=== PATIENT | female | born 1995 | race Caucasian/White ===

== ENCOUNTER 2016-10-17 19:28 | Emergency (ER) | payer MEDICAID, OTHER ==
[2016-10-17] MEDS ORDERED: LORazepam 2 MG/ML VIAL IM ONE (20:30)
[2016-10-17] MEDS ORDERED: LORazepam 2 MG/ML VIAL ONE (20:33)
[2016-10-17] MEDS ORDERED: OLANZapine IM 10 MG VIAL IM ONE ×2 (20:50→21:00)
--- NOTE | 2016-10-17 21:02 | PD ---
HPI Chief Complaint: Psychiatric Symptoms Time Seen by Provider: 20:58 Travel History International Travel<30 days: No Contact w/Intl Traveler<30days: No Traveled to known affect area: No History of Present Illness HPI 21-year-old white female presents to emergency department from [facility] for medical clearance under a De La Torre act. The patient was belligerent at home, acting out breaking things and making suicidal statements. According to the nursing staff there is some question whether she had been smoking K2. The patient will at [facility] refused to give a urine specimen for test. The patient became increasingly agitated and was sent to the ER for medical clearance. The patient here is [id number] and acutely psychotic. Due to risk to the staff and patient she is placed in restraints and medicated with Zyprexa 10 mg IM. The patient is unable to render any meaningful history due to her acute psychoses. PFSH Past Medical History Medical History: Unable to Obtain Tetanus Vaccination: Unknown ?: Unknown Past Surgical History Surgical History: Unable to Obtain Social History Narrative Social History Unable to obtain Alcohol Use: No Tobacco Use: No Substance Use: No Allergies-Medications (Allergen,Severity, Reaction): Coded Allergies: No Known Allergies (Unverified , 10/17/16) Review of Systems ROS Limitations: Psychotic Physical Exam Narrative GENERAL: Well-nourished, well-developed patient. Acutely psychotic and agitated. SKIN: Warm and dry. HEAD: Normocephalic and atraumatic. EYES: No scleral icterus. No injection or drainage. ENT: No nasal drainage noted. Mucous membranes pink. Airway patent. NECK: Supple, trachea midline. Moves head freely without obvious discomfort. CARDIOVASCULAR: Regular rate and rhythm without murmurs, gallops, or rubs. RESPIRATORY: Breath sounds equal bilaterally. No accessory muscle use. GASTROINTESTINAL: Abdomen soft, non-tender, nondistended. EXTREMITIES: No cyanosis or edema. BACK: Nontender without obvious deformity. No CVA tenderness. NEURO: Patient is alert and oriented to person. She is screaming out and acutely psychotic. PSYCH: Acutely psychotic and agitated. Poor insight and judgment Data Data Orders Complete Blood Count With Diff (10/17/16 20:18) Comprehensive Metabolic Panel (10/17/16 20:18) Psych Screen (10/17/16 20:18) Drug Screen, Random Urine (10/17/16 20:18) Alcohol (Ethanol) (10/17/16 20:18) Salicylates (Aspirin) (10/17/16 20:18) Tylenol (Acetaminophen) (10/17/16 20:18) Lorazepam Inj (Ativan Inj) (10/17/16 20:30) Lorazepam Inj (Ativan Inj) (10/17/16 20:33) Olanzapine Inj (Zyprexa Inj) (10/17/16 21:00) Olanzapine Inj (Zyprexa Inj) (10/17/16 20:50) Restraints Violent (10/17/16 21:02) Beta Hcg (Quant/Titer) (10/17/16 20:18) Diet Regular Basic (10/18/16 Breakfast) Potassium Chloride (Kcl) (10/18/16 02:15) Labs Laboratory Tests Test 10/17/16 23:25 White Blood Count 10.6 TH/MM3 Red Blood Count 4.21 MIL/MM3 Hemoglobin 12.9 GM/DL Hematocrit 37.7 % Mean Corpuscular Volume 89.5 FL Mean Corpuscular Hemoglobin 30.7 PG Mean Corpuscular Hemoglobin 34.3 % Concent Red Cell Distribution Width 12.9 % Platelet Count 256 TH/MM3 Mean Platelet Volume 8.5 FL Neutrophils (%) (Auto) 70.2 % Lymphocytes (%) (Auto) 21.7 % Monocytes (%) (Auto) 7.8 % Eosinophils (%) (Auto) 0.1 % Basophils (%) (Auto) 0.2 % Neutrophils # (Auto) 7.4 TH/MM3 Lymphocytes # (Auto) 2.3 TH/MM3 Monocytes # (Auto) 0.8 TH/MM3 Eosinophils # (Auto) 0.0 TH/MM3 Basophils # (Auto) 0.0 TH/MM3 CBC Comment DIFF FINAL Differential Comment Salicylates Level LESS THAN 1.7 MG/DL Sodium Level 141 MEQ/L Potassium Level 3.2 MEQ/L Chloride Level 106 MEQ/L Carbon Dioxide Level 23.6 MEQ/L Anion Gap 11 MEQ/L Blood Urea Nitrogen 6 MG/DL Creatinine 0.61 MG/DL Estimat Glomerular Filtration 125 ML/MIN Rate Random Glucose 105 MG/DL Calcium Level 9.1 MG/DL Total Bilirubin 0.4 MG/DL Aspartate Amino Transf 11 U/L (AST/SGOT) Alanine Aminotransferase 17 U/L (ALT/SGPT) Alkaline Phosphatase 66 U/L Total Protein 6.7 GM/DL Albumin 4.0 GM/DL Human Chorionic Gonadotropin, LESS THAN 1 Quant MIU/ML Acetaminophen Level 3.3 MCG/ML Ethyl Alcohol Level LESS THAN 3 MG/DL [place] Medical Decision Making Medical Screen Exam Complete: Yes Emergency Medical Condition: Yes Medical Record Reviewed: Yes Interpretation(s) CBC & BMP Diagram 10/17/16 23:25 Differential Diagnosis MDM: High Differential diagnoses: Schizophrenia, schizoaffective disorder, bipolar, anxiety, depression, adjustment reaction, mood disorder NOS, ODD, depressive disorder NOS, dementia, dementia with agitation, psychosis NOS, substance induced mood disorder, intermittent explosive disorder, Asperger syndrome, infection,electrolyte abnormality, malingering. Narrative Course Due to the patient's acute psychosis and agitation she is medicated with Zyprexa 10 mg IM and placed in restraints to prevent self-harm and harm to the medical staff. Once she calms down she'll be taken out of restraints per protocol. The patient is given 20 mEq of potassium by mouth. The patient has refused to give a urine specimen. Her blood aren't suggestive as negative. The patient is medically cleared to go back to [facility] This is psychosis NOS Diagnosis Primary Impression: Unspecified psychosis Additional Impressions: Medical clearance for psychiatric admission Hypokalemia Patient Instructions: General Instructions Disposition: 65 DISC TO PSYCH CARE FACILITY Condition: Stable Rolando Villasenor Oct 17, 2016 21:02
[2016-10-17 23:39] LABS: AUTOMATED NEUTROPHIL # 7.4 TH/MM3 (1.8-7.7); BASOPHIL % 0.2 % (0.0-2.0); EOSINOPHIL % 0.1 % (0.0-4.0); HEMATOCRIT 37.7 % (35.0-46.0); HEMO FLAGS DIFF FINAL; LYMPH % 21.7 % (9.0-44.0); LYMPHOCYTE # 2.3 TH/MM3 (1.0-4.8); MEAN CELL VOLUME 89.5 FL (80.0-100.0); MEAN CORPUSCULAR HEMOGLOBIN 30.7 PG (27.0-34.0); MEAN CORPUSCULAR HGB CONC 34.3 % (32.0-36.0); MONO % 7.8 % (0.0-8.0); NEUT % 70.2 % (16.0-70.0); PLATELET COUNT 256 TH/MM3 (150-450); RED BLOOD COUNT 4.21 MIL/MM3 (4.00-5.30); RED CELL DISTRIBUTION WIDTH 12.9 % (11.6-17.2); WHITE BLOOD COUNT 10.6 TH/MM3 (4.0-11.0)
[2016-10-18 00:41] LABS: BLOOD UREA NITROGEN 6 MG/DL (7-18)
[2016-10-18 00:42] LABS: ALKALINE PHOSPHATASE 66 U/L (45-117); ALT (GPT) 17 U/L (9-42); ANION GAP 11 MEQ/L (5-15); AST (GOT) 11 U/L (16-38); BICARBONATE 23.6 MEQ/L (21.0-32.0); CHLORIDE 106 MEQ/L (98-107); GLOMERULAR FILTRATION RATE 125 ML/MIN (>89); POTASSIUM 3.2 MEQ/L (3.5-5.1); SODIUM (NA) 141 MEQ/L (136-145); TOTAL BILIRUBIN ADULT 0.4 MG/DL (0.2-1.0)
[2016-10-18 00:43] LABS: ACETAMINOPHEN 3.3 MCG/ML (10.0-30.0); BETA HCG QUANT LESS THAN 1 MIU/ML (0-5)
[2016-10-18 02:00] VITALS: BP 120/59; PULSE 86; RESP 19; O2SAT 98
[2016-10-18] MEDS ORDERED: POTASSIUM CHLORIDE 20 MEQ CONTROLLED RELEASE TAB PO ONE (02:15)
== END 2016-10-18 07:10 ==
LOC: NEDAMB 19:28 → NEPJ 10-18 07:10
DX: F29 Unspecified psychosis not due to a substance or known physiological condition (principal); E87.6 Hypokalemia
CPT/HCPCS: 80053; 80307; 84702; 85025; 96372; 99284; J2060

== ENCOUNTER 2016-10-28 13:14 | Inpatient (IN) | payer MEDICAID, OTHER ==
[~2016-10-28] VITALS: Ht 157.5 cm; Wt 56.0 kg
[2016-10-28 14:25] VITALS: BP 131/90; PULSE 127; RESP 18; TEMP 98.6; O2SAT 94
[2016-10-28] MEDS ORDERED: LORazepam 2 MG/ML VIAL IM PRN (15:00)
[2016-10-28] MEDS ORDERED: LORazepam 1 MG TAB PO PRN (15:00)
[2016-10-28] MEDS ORDERED: ACETAMINOPHEN 325 MG TAB PO PRN (15:00)
[2016-10-28 19:06] VITALS: BP 117/77; PULSE 125; RESP 18; TEMP 97.3; O2SAT 97
[2016-10-29 06:54] VITALS: BP 125/71; PULSE 72; RESP 19; TEMP 97; O2SAT 98
--- NOTE | 2016-10-29 16:56 | HHI.HP ---
Provisional Diagnosis Admission Date Oct 28, 2016 at 14:05 [place] I. Schizophrenia, chronic paranoid type. Certification of Person's Competence To Provide Express and Informed Consent I have personally examined Kori Singer , a [facility] on, Oct 29, 2016 16:47. Express and informed consent means consent voluntarily given in writing, by a competent person, after sufficient explanation and disclosure of the subject matter involved to enable the person to make a knowing and willful decision without any element of force, fraud, deceit, duress, or other form of constraint or coercion. This person is 18 years of age or older, is not now known to be incompetent to consent to treatment with a guardian advocate, and does not have a health care surrogate or proxy currently making medical treatment decisions. I have found this person to be one of the following: [] Competent to provide express and informed consent, as defined above, for voluntary admission to this facility and is competent to provide express and informed consent for treatment. He/she has the consistent capacity to make well reasoned, willful, and knowing decisions concerning his or her medical or mental health treatment. The person fully and consistently understands the purpose of the admission for examination/placement and is fully capable of personally exercising all rights assured [place] [X] Incompetent to provide express and informed consent to voluntary admission, and this is incompetent to provide express and informed consent to treatment. The person must be transferred to involuntary status and a petition for a guardian advocate filed with the Circuit Court. [] Refusing to provide express and informed consent to voluntary admission but is competent to provide express and informed consent for treatment. The person must be discharged or transferred to involuntary status. Form shall be completed within 24 hours of a person's arrival at the receiving facility and filed in the clinical record of each person: 1. Admitted on a voluntary basis 2. Permitted to provide express and informed consent to his/her own treatment 3. Allowed to transfer from involuntary to voluntary status 4. Prior to permitting a person to consent to his or her own treatment after having been previously found incompetent to consent to treatment. History of Present Illness Capacity: Lacks Capacity HPI This is a 21-year-old female who is grossly psychotic and a very poor historian. Apparently she was transferred here from [facility] under a De La Torre act. She can provide this physician with no information regarding her recent history and when approached, the patient is holding a Bible and stating that she is paranoid she will be strangled. 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 Patient also demonstrates looseness of associations, thought blocking, and is obviously responding to internal stimuli. She is not felt to be competent to make medical or psychiatry decisions regarding her own care. This physician asked aids social worker to call the patient's mother and aids social worker has left voice mails but mother has not returned call. The patient did refer to a man in her life as both her boyfriend and and that she needs to go back to him but this is unverified able. She is reclusive on the unit and is not speaking to other patients. Toxicology screen is reportedly negative. Review of Systems ROS Limitations: Clinical Condition Past Psych History Psychological trauma history Denied Violence risk - others (6 mos) Minimal Violence risk - self (6 mos) Moderate Substance Abuse History Drugs/Alcohol past 12 months Denied Past Family Social History Coded Allergies: No Known Allergies (Unverified , 10/17/16) Current Medications Medications (Trade) Dose Ordered Sig/Tien Route Start Time Stop Time Status Last Admin (Ativan) 1 mg Q4H PRN PO 10/28/16 15:00 10/29/16 03:10 (Ativan Inj) 1 mg Q4H PRN IM 10/28/16 15:00 10/28/16 17:24 (Milk Of Magnesia Liq) 30 ml Q6H PRN PO 10/28/16 15:00 (Tylenol) 650 mg Q6H PRN PO 10/28/16 15:00 Family History Unknown. 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 She is denying any problems with drugs or alcohol. We are uncertain if she is truly involved with any romantic relationships. Patient's Strengths (min. 2) Verbal and has access to healthcare. Physical Exam GENERAL: SKIN: Warm and dry. HEAD: Normocephalic. EYES: No scleral icterus. No injection or drainage. NECK: Supple, trachea midline. No JVD or lymphadenopathy. CARDIOVASCULAR: Regular rate and rhythm without murmurs, gallops, or rubs. RESPIRATORY: Breath sounds equal bilaterally. No accessory muscle use. GASTROINTESTINAL: Abdomen soft, non-tender, nondistended. MUSCULOSKELETAL: No cyanosis, or edema. BACK: Nontender without obvious deformity. No CVA tenderness. Vital Signs Vital Signs Date Time Temp Pulse Resp B/P Pulse Ox O2 Delivery O2 Flow Rate FiO2 10/29/16 06:54 97.0 72 19 125/71 98 Mental Status Examination Speech: Hesitant Orientation: Person, Place Memory: Unremarkable Thought Process: Organized, Loose Association Thought Content: Bizarre thinking, Paranoid Hallucination Type: Auditory Attention and Concentration: Easily Distracted Suicidal Ideation: Yes Previous Suicide Attempts: No Homicidal Ideation: No Previous Homicide Attempts: No Insight: Fair Judgment: Unrealistic Affect: Anxious Affect if Inappropriate: Blunt Mood: Appropriate, Anxious Motor Activity: Normal gait Assessment & Plan Problem List: (1) Schizophrenia, paranoid type ICD Code: F20.0 Assessment & Plan Estimated LOS: 7 days patient is obviously significantly impaired in her thought process and thought content. She appears very anxious and scared because of her paranoia. She is reclusive and does not engage with other patients or staff. This physician is also concerned about her auditory hallucinations telling her to harm herself. She will remain on close observation. This physician is uncertain of her history and needs to rule out any organic causes for her psychosis. Therefore she will receive a comprehensive metabolic workup, thyroid testing, EKG for psychotropic medicine tolerance, head scan if one has not been done, etc. At this point she is certainly unable to care for herself and she is felt to be at significant risk for self-harm. Placido Colin MD Oct 29, 2016 16:56
[2016-10-29] MEDS ORDERED: LORazepam 0.5 MG TAB PO PRN (17:00)
[2016-10-29] MEDS ORDERED: LORazepam 2 MG/ML VIAL IM PRN (17:00)
[2016-10-29] MEDS ORDERED: diphenhydrAMINE HCL 50 MG/ML VIAL IM STA (17:03)
[2016-10-29] MEDS ORDERED: ZIPRASIDONE MESYLATE 20 MG VIAL IM ONE ×2 (17:05→17:15)
[2016-10-29] MEDS ORDERED: diphenhydrAMINE HCL 50 MG/ML VIAL ONE (17:06)
[2016-10-29 18:00] VITALS: BP 140/72; PULSE 126; RESP 20; O2SAT 97
[2016-10-29] MEDS: LORazepam 1 MG TAB PO PRN ×3 (21:06→23:38)
[2016-10-29] MEDS: diphenhydrAMINE HCL 50 MG CAP PO PRN (21:06)
[2016-10-30] MEDS: LORazepam 1 MG TAB PO PRN (07:38)
[2016-10-30 08:03] VITALS: BP 142/83; PULSE 0; RESP 18; TEMP 99.1; O2SAT 96
[2016-10-30] MEDS: LORazepam 2 MG/ML VIAL IM PRN ×2 (08:14→19:54)
[2016-10-30 09:27] LABS: AUTOMATED NEUTROPHIL # 7.3 TH/MM3 (1.8-7.7); BASOPHIL % 0.3 % (0.0-2.0); EOSINOPHIL % 0.1 % (0.0-4.0); HEMATOCRIT 41.5 % (35.0-46.0); HEMO FLAGS DIFF FINAL; LYMPH % 12.6 % (9.0-44.0); LYMPHOCYTE # 1.1 TH/MM3 (1.0-4.8); MEAN CELL VOLUME 89.1 FL (80.0-100.0); MEAN CORPUSCULAR HEMOGLOBIN 31.8 PG (27.0-34.0); MEAN CORPUSCULAR HGB CONC 35.7 % (32.0-36.0); MONO % 6.7 % (0.0-8.0); NEUT % 80.3 % (16.0-70.0); PLATELET COUNT 346 TH/MM3 (150-450); RED BLOOD COUNT 4.65 MIL/MM3 (4.00-5.30); WHITE BLOOD COUNT 9.1 TH/MM3 (4.0-11.0)
[2016-10-30 10:10] LABS: ALKALINE PHOSPHATASE 75 U/L (45-117); ALT (GPT) 26 U/L (9-42); ANION GAP 14 MEQ/L (5-15); AST (GOT) 12 U/L (16-38); BICARBONATE 21.1 MEQ/L (21.0-32.0); BLOOD UREA NITROGEN 8 MG/DL (7-18); CHLORIDE 103 MEQ/L (98-107); GLOMERULAR FILTRATION RATE 94 ML/MIN (>89); POTASSIUM 3.5 MEQ/L (3.5-5.1); SODIUM (NA) 138 MEQ/L (136-145); TOTAL BILIRUBIN ADULT 0.8 MG/DL (0.2-1.0)
--- NOTE | 2016-10-30 11:17 | PD.CONS ---
Provisional Diagnosis Admission Date Oct 28, 2016 at 14:05 [place] I. 1. Brief psychotic disorder Rule out first break of primary psychotic disorder like schizophrenia Rule out mood disorder with psychotic features Rule out psychotic disorder related to a general medical condition [place] II. Deferred [place] V. GAF is 30 presently History of Present Illness Service Psychiatry Consult Requested By Dr. Colin Reason for Consult Second opinion for involuntary psychiatric hospitalization Primary Care Physician Unknown HPI From Dr. Colin's H&P: This is a 21-year-old female who is grossly psychotic and a very poor historian. Apparently she was transferred here from [facility] under a [place] Torre act. She can provide this physician with no information regarding her recent history and when approached, the patient is holding a Bible and stating that she is paranoid she will be strangled. 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 Patient also demonstrates looseness of associations, thought blocking, and is obviously responding to internal stimuli. She is not felt to be competent to make medical or psychiatry decisions regarding her own care. This physician asked criminal justice social worker to call the patient's mother and criminal justice social worker has left voice mails but mother has not returned call. The patient did refer to a man in her life as both her boyfriend and and that she needs to go back to him but this is unverified able. She is reclusive on the unit and is not speaking to other patients. Toxicology screen is reportedly negative. On my examination today: Patient seen and examined with counselor and nurse. Chart reviewed. Case discussed in treatment team with counselor and nurse. On my examination today, patient presents as very fearful and internally preoccupied. She is malodorous and disheveled. The patient reports that she is on her menses and so is "reborn." She reports that she has been sleeping quite poorly for the last several weeks and feels "real confused." She does articulate a belief that she is somehow being controlled by another person but says, "I don't wanna talk about it; they just turn things around." Affect is labile. She is non- committal regarding SI/HI. She denies AVH but appears internally preoccupied as I said. She admits that she has been under a lot of stress because of studying for [employer]. Psychiatric interview is somewhat limited because of patient's degree of psychiatric impairment at present. Past psychiatric history: Patient is likely an unreliable historian but denies any history of psychiatric illness. Family history: Patient reports that her mother has issues with being "explosive " but denies any other family psychiatric history. Chemical dependency history: Patient denies any abuse of drugs or alcohol. 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 She is single with no children. She works part-time at [employer]. Social history is limited because of patient's degree of psychiatric impairment. I have obtained collateral from patient's father, Ravi Singer, over the phone at [phone]: He notes that the patient has no prior psychiatric history and was in her usual state of health until about 2 weeks ago when she began crying at night for no reason. She notes that she broke up with her boyfriend about one week ago. She began "talking strange" and so family called the police and had her De La Torre acted and sent to [facility]. She was reportedly started on Zyprexa Zydis but this made the patient more confused reportedly. She was subsequently discharged from [facility] but has once again decompensated. Father notes that patient's mother carries a diagnosis of schizophrenia as well as patient's brother. Brother is reportedly on Zyprexa. Mother is not presently on antipsychotic therapy. Father does not patient is using suspect the patient is abusing substances. I discussed patient's differential diagnosis and treatment plan, and father is in agreement with the plan as presumptive healthcare surrogate. He thanks me for the call. Review of Systems ROS Limitations: Psychotic, Poor Historian Except as stated in HPI: all other systems reviewed are Neg Past Family Social History Coded Allergies: No Known Allergies (Unverified , 10/17/16) Past Medical History See electronic medical record Current Medications Medications (Trade) Dose Ordered Sig/Tien Route Start Time Stop Time Status Last Admin (Milk Of Magnleonid Liq) 30 ml Q6H PRN PO 10/28/16 15:00 (Ativan) 1 mg Q6H PRN PO 10/29/16 17:00 10/30/16 07:38 (Ativan Inj) 1 mg Q6H PRN IM 10/29/16 17:00 10/30/16 08:14 (Ativan) 0.5 mg Q12H PRN PO 10/29/16 17:00 (Ativan Inj) 0.5 mg Q12H PRN IM 10/29/16 17:00 (Benadryl) 50 mg Q6H PRN PO 10/29/16 17:00 (Benadryl Inj) 50 mg Q6H PRN IM 10/29/16 17:00 (Tylenol) 650 mg Q4H PRN PO 10/29/16 17:00 Family History See above Social History See above Patient's Strengths (min. 2) In a monitored setting. Supportive family. Physical Exam Physical examination completed by ED provider. On my examination today, the patient is well-nourished and well-developed and in no acute physical distress. No motoric abnormalities noted. Labs and vital signs reviewed: Vital Signs Vital Signs Date Time Temp Pulse Resp B/P Pulse Ox O2 Delivery O2 Flow Rate FiO2 10/30/16 08:03 99.1 0 18 142/83 96 Lab Results Item Value Date Time White Blood Count 9.1 TH/MM3 10/30/16 0710 Hemoglobin 14.8 GM/DL 10/30/16 0710 Platelet Count 346 TH/MM3 # 10/30/16 0710 Sodium Level 138 MEQ/L 10/30/16 0710 Potassium Level 3.5 MEQ/L 10/30/16 0710 Chloride Level 103 MEQ/L 10/30/16 0710 Carbon Dioxide Level 21.1 MEQ/L 10/30/16 0710 Blood Urea Nitrogen 8 MG/DL 10/30/16 0710 Creatinine 0.78 MG/DL 10/30/16 0710 Aspartate Amino Transf (AST/SGOT) 12 U/L L 10/30/16 0710 Alanine Aminotransferase (ALT/SGPT) 26 U/L 10/30/16 0710 Alkaline Phosphatase 75 U/L 10/30/16 0710 Thyroid Stimulating Hormone 3rd Gen 1.890 uIU/ML 10/30/16 0710 Beta HCG, Qualitative LESS THAN 1 MIU/ML 10/30/16 0710 Mental Status Examination Patient is casually dressed. She is fairly disheveled and malodorous. She is awake and alert and oriented to person and hospital. No evidence of delirium. No abnormal motor movements noted. Speech is somewhat halting and rambling. Language and fund of knowledge seemed average. Mood is somewhat anxious and affect is labile. Thought process somewhat disorganized. Associations somewhat loose. Delusions of control present as noted above. Patient denies audiovisual hallucinations but appears internally preoccupied. She is noncommittal regarding suicidal or homicidal ideation and is unreliable to contract for safety in her present state. Insight and judgment seem poor. Assessment & Plan Problem List: (1) Brief psychotic disorder ICD Code: F23 Assessment & Plan Initiate first break psychosis workup to include MRI of the brain as well as B12 , RPR, HIV, ammonia. Family history is certainly concerning for a primary psychotic illness. Zyprexa apparently worsened patient's condition or at least failed to improve it. I will initiate Abilify at a dose of 10 mg daily. This seems like a good option as it also comes and a corresponding long-acting injectable. Continue to monitor on the high acuity unit. Continue other medications and care as ordered. Given the circumstances of patient's presentation and her presentation on my examination today, I concur with Dr. Colin that the patient meets criteria for involuntary psychiatric hospitalization under the De La Torre act. I've completed the second opinion paperwork. I have also requested a healthcare surrogate. Discharge Planning Pending psychiatric stabilization Request HC Surrog/Guard Advoc?: Yes August Khan MD Oct 30, 2016 11:17
[2016-10-30 17:44] VITALS: BP 139/95; PULSE 113; RESP 18; TEMP 98.6; O2SAT 97
[2016-10-30] MEDS: diphenhydrAMINE HCL 50 MG/ML VIAL IM PRN (18:03)
[2016-10-31] VITALS (7 sets, daily range): BP systolic 119–163; BP diastolic 68–97; PULSE 74–181; RESP 17–20; TEMP 97.5–98.2; O2SAT 95–96
[2016-10-31] MEDS: diphenhydrAMINE HCL 50 MG/ML VIAL IM PRN ×2 (00:29→06:11)
[2016-10-31] MEDS: LORazepam 2 MG/ML VIAL IM PRN ×2 (05:14→18:21)
[2016-10-31] MEDS ORDERED: cloNIDine HCL 0.1 MG TAB PO ONE (06:00)
[2016-10-31] MEDS ORDERED: ARIPiprazole 5 MG TAB PO SCH (09:00)
[2016-10-31] MEDS: ARIPiprazole 10 MG TAB PO SCH (09:07)
--- NOTE | 2016-10-31 09:35 | HHI.PYPN ---
Subjective Remarks Patient seen and examined with counselor and nurse. Chart reviewed. Case discussed with nursing staff reports that the patient has been extremely anxious but otherwise no behavioral problem. Patient's pulse rate was significantly elevated this morning, peaking at 181 bpm. Patient was given Ativan which decreased the pulse rate. I did obtain a stat EKG which revealed sinus tachycardia, and I'll consult with the hospitalist for further evaluation of tachycardia. On my examination today, the patient presents as nervous and tremulous. When I ask routine follow-up questions she presents as fairly guarded and asks "are you investigating me?" She is reluctant to accept medication saying "I don't want to be dependent." She is requesting a Zoroastrian commercial construction superintendent. She denies any audiovisual hallucinations but appears internally preoccupied. Nursing staff reports that the patient was extremely reluctant to take any medications this morning. No evidence side effects from first dose of Abilify. Review of Systems ROS Limitations: Psychotic, Poor Historian Except as stated in HPI: all other systems reviewed are Neg Objective Alert: Yes [place]: Person, Place Mood: Anxious (marked) Affect: Restricted Memory Intact: Comment (Not formally assessed) Hallucinations: Auditory (appears internally preoccupied) Delusions: Yes Delusion Type: Paranoid Suicidal: Ideation (none) Homicidal: Ideation (none) Insight/Judgment Poor Remarks Somewhat tremulous but no other motoric abnormalities noted. Speech somewhat rambling. Thought process somewhat disorganized. Grooming and hygiene fair. Labs Test 10/31/16 07:38 Ammonia 14 MCMOL/L Vitamin B12 Level 776 PG/ML Labs reviewed. Awaiting MRI of the brain. EKG reviewed. Vitals/IOs Vital Signs Date Time Temp Pulse Resp B/P Pulse Ox O2 Delivery O2 Flow Rate FiO2 10/31/16 05:59 157 119/96 10/31/16 05:10 97.5 20 95 Assessment & Plan Problem List: (1) Brief psychotic disorder ICD Code: F23 Assessment & Plan Continue Abilify with plans to titrate to target psychosis. Mouth checks. Consult to the hospitalist for tachycardia as noted above, although I suspect this is at least in part related to anxiety. I will titrate patient's Ativan PRN, and we could consider a scheduled benzodiazepine. Consult to pastoral care. Continue to monitor on the high acuity unit. Continue other medications and care as ordered. I did discussed the case briefly with hospitalist Dr. Dubose prior to him seeing the patient. Justification for Cont. Inpt. Planned medication changes. Impairment in reality construction. High risk for decompensation in a restrictive environment. Discharge Planning Pending psychiatric stabilization Request HC Surrog/Guard Advoc?: Yes August Khan MD Oct 31, 2016 09:35
--- NOTE | 2016-10-31 16:50 | PD.CONS ---
HPI Service [facility] Consult Requested By Psychiatry team Reason for Consult Assist with medical management, tachycardia Primary Care Physician Unknown Diagnoses: History of Present Illness Patient is a 21 year old white female with no known primary medical history who came in to the hospital from [facility] under [place] act secondary to being belligerent at home, acting out raking things and making suicidal statements. As per record, questionable smoking K2 as per nursing staff at [facility]. The patient also refused to give urine specimen for test. 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 Patient is now admitted to inpatient psychiatry unit for further evaluation. Consulted for medical management, tachycardia. Patient seen and examined today. Very paranoid. Unable to verify any medical information nor prior history of hospitalization. Minimal verbalization. Does not follow any commands. Patient edition lying in bed monitoring some words sounds are not understandable. In the beginning, patient refused to be examined but with further coaching patient agreed. Review of Systems ROS Limitations: Psychotic Past Family Social History Allergies: Coded Allergies: No Known Allergies (Unverified , 10/17/16) Past Medical History Unable to obtain Past Surgical History Unable to obtain Active Ordered Medications Current Medications Medications (Trade) Dose Ordered Sig/Tien Route Start Time Stop Time Status Last Admin (Milk Of Wendi Liq) 30 ml Q6H PRN PO 10/28/16 15:00 (Benadryl) 50 mg Q6H PRN PO 10/29/16 17:00 (Benadryl Inj) 50 mg Q6H PRN IM 10/29/16 17:00 10/31/16 06:11 (Tylenol) 650 mg Q4H PRN PO 10/29/16 17:00 (Abilify) 10 mg DAILY PO 10/31/16 09:00 10/31/16 09:07 (Ativan) 2 mg Q6H PRN PO 10/31/16 17:00 (Ativan Inj) 2 mg Q6H PRN IM 10/31/16 17:00 Family History Unable to obtain Social History As per review of records, denies alcohol use, denies tobacco use Physical Exam Vital Signs Vital Signs Date Time Temp Pulse Resp B/P Pulse Ox O2 Delivery O2 Flow Rate FiO2 10/31/16 13:25 144 10/31/16 09:36 181 10/31/16 05:59 157 119/96 10/31/16 05:10 97.5 74 20 163/68 95 10/30/16 17:44 98.6 113 18 139/95 97 Physical Exam GENERAL: This is a well-nourished, well-developed patient, flat affect, appears scared and anxious. SKIN: No rashes, ecchymoses or lesions. Warm and dry. HEAD: Atraumatic. Normocephalic. No temporal or scalp tenderness. EYES: Pupils equal round and reactive. No scleral icterus. No injection or drainage. ENT: Nose without bleeding. Throat without erythema. Uvula midline. Airway patent. NECK: Trachea midline. No JVD or lymphadenopathy. Supple, nontender, no meningeal signs. CARDIOVASCULAR: Tachycardia without murmurs, gallops, or rubs. RESPIRATORY: Clear to auscultation. Breath sounds equal bilaterally. No wheezes , rales, or rhonchi. GASTROINTESTINAL: Abdomen soft, non-tender, nondistended. Bowel sounds active MUSCULOSKELETAL: Extremities without clubbing, cyanosis, or edema. NEUROLOGICAL: Awake and alert. Minimal verbalization. Moves all extremity but appears to be getting stiff every time she is being approached. Normal speech. Laboratory Laboratory Tests Test 10/31/16 07:38 Ammonia 14 Vitamin B12 Level 776 Rapid Plasma Reagin NON-REACTIVE HIV (1&2) Antibody NEGATIVE Result Diagram: 10/30/16 0710 10/30/16 0710 Assessment and Plan Problem List: (1) Schizophrenia, paranoid type ICD Code: F20.0 Status: Acute (2) Unspecified psychosis ICD Code: F29 Status: Acute (3) Tachycardia ICD Code: R00.0 Status: Acute Assessment and Plan Patient is a 21 year old white female with no known primary medical history who came in to the hospital from [facility] under [place] act secondary to being belligerent at home, acting out raking things and making suicidal statements. As per record, questionable smoking K2 as per nursing staff at [facility]. The patient also refused to give urine specimen for test. 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 Patient is now admitted to inpatient psychiatry unit for further evaluation. Consulted for medical management, tachycardia. Psychosis, schizophrenia - managed by psychiatry team - Patient appears to be increasingly paranoid and stiffening motion every time she is being approach. May possibly go to catatonia. Tachycardia - Most likely related to paranoia and anxiety. We'll continue to monitor for now. Encourage oral hydration. - EKG reviewed by me, tachycardia [address] changes. - Patient may need benefit from scheduled anxiolytics until she is more stable from a psychiatric standpoint.. - Unremarkable labs, reviewed. Previous toxicology negative. DVT prop ambulatory Thank you for this consultation. We will follow patient with you. Written by Mayr Bee, acting as scribe for Dr. Dubose on 10/31/16 at 16: 48. This note was transcribed by SUMANTH Figueroa. I, Dr. Mary Anne Dubose personally performed the history, physical exam, and medical decision making; and confirmed the accuracy of the information in the transcribed note. Authenticated by Dr. Mary Anne Dubose on 10/31/16 at 16:52. Code Status Full Code Discussed Condition With Patient, nursing, Mary Sandoval Oct 31, 2016 16:50 Mary Anne Dubose MD Oct 31, 2016 16:53
--- NOTE | 2016-10-31 19:04 | EKG ---
Date Performed: 10/31/2016 Time Performed: 10:37:43 PTAGE: 21 years EKG: SINUS TACHYCARDIA LEFT ATRIAL ENLARGEMENT ABNORMAL RHYTHM ECG NO PREVIOUS TRACING DOCTOR: Toshia Mistry Interpretating Date/Time 10/31/2016 19:03:10
[2016-10-31] MEDS: diphenhydrAMINE HCL 50 MG CAP PO PRN (21:06)
[2016-11-01] MEDS: LORazepam 2 MG TAB PO PRN (00:17)
[2016-11-01 06:09] VITALS: BP 122/68; PULSE 140; RESP 16; TEMP 97.1; O2SAT 99
[2016-11-01] MEDS: ARIPiprazole 10 MG TAB PO SCH ×2 (09:00→09:26)
[2016-11-01 09:56] VITALS: BP 133/86; PULSE 166
[2016-11-01] MEDS: LORazepam 2 MG/ML VIAL IM PRN (10:05)
--- NOTE | 2016-11-01 10:43 | HHI.PYPN ---
Subjective Remarks Patient seen and examined with counselor and nurse. Chart reviewed. Case discussed with nursing staff. Per nursing staff, patient's oral intake has been poor and she has been growing increasingly confused. On my examination today, behavior is considerably more disorganized today. She is oriented to person only. She is flapping her hands and engaging in purposeless movements. Her affect is quite labile and she appears generally fearful and internally preoccupied. She appears quite diaphoretic. Review of Systems ROS Limitations: Altered Mental Status, Psychotic, Poor Historian Other ROS limited because of patient's mental status Objective Alert: Yes [place]: Person Mood: Anxious Affect: Labile Memory Intact: Comment (Not formally assessed) Hallucinations: Auditory (remains internally preoccupied) Delusions: No Delusion Type: Other (difficult to assess because of altered mental status) Suicidal: Ideation (none voiced) Homicidal: Ideation (none voiced) Insight/Judgment Poor Remarks No hypertonia, some generalized tremors as before, no dystonias or dyskinesias. Appears diaphoretic. TP disorganized. Minimal speech, largely word salad. No posturing but + purposeless movements. Labs Labs reviewed. Vitals/IOs Vital Signs Date Time Temp Pulse Resp B/P Pulse Ox O2 Delivery O2 Flow Rate FiO2 11/01/16 09:56 166 133/86 11/01/16 06:09 97.1 16 99 Assessment & Plan Problem List: (1) Brief psychotic disorder ICD Code: F23 (2) Catatonia ICD Code: F06.1 Assessment & Plan Concern for catatonia, possibly malignant catatonia given tachycardia. Delirium due to other causes also in the differential. NMS seems less likely based on exam and lack of leukocytosis and relatively mild CK elevation, but should also be considered. D/w hospitalist. Check stat CBC, CMP, CK. [Reviewed: CK elevated. No leukocytosis. AST mildly elevated.] D/w Dr. Marie. Transfer to med psych. Start scheduled Ativan IM 2mg q6h for possible catatonia. Hold Abilify. NS bolus x 1 L now. Vitals q4h. Updated father Ravi Singer, over the phone at [phone] on change in status. He thanks me for the update. Patient's case was presented to the [place] act court, and the ict teacher placed the case and continuance for 4 weeks. Justification for Cont. Inpt. Complicating conditions. Impairment in reality construction. High risk for decompensation in a less restrictive environment. Discharge Planning Pending psychiatric stabilization. Request HC Surrog/Guard Advoc?: Yes August Khan MD Nov 01, 2016 10:43
[2016-11-01] MEDS ORDERED: SODIUM CHLOR 0.9% 1000 ML INJ 1,000 ML IV ONE (10:45)
[2016-11-01] MEDS: LORazepam 2 MG/ML VIAL IM SCH ×3 (10:45→23:02)
[2016-11-01 11:12] LABS: AUTOMATED NEUTROPHIL # 6.9 TH/MM3 (1.8-7.7); BASOPHIL % 0.5 % (0.0-2.0); EOSINOPHIL # 0.1 TH/MM3 (0-0.4); EOSINOPHIL % 0.9 % (0.0-4.0); HEMO FLAGS DIFF FINAL; LYMPHOCYTE # 1.7 TH/MM3 (1.0-4.8); MEAN CELL VOLUME 91.2 FL (80.0-100.0); MEAN CORPUSCULAR HEMOGLOBIN 30.4 PG (27.0-34.0); MEAN CORPUSCULAR HGB CONC 33.3 % (32.0-36.0); MONO % 6.4 % (0.0-8.0); NEUT % 74.2 % (16.0-70.0); PLATELET COUNT 277 TH/MM3 (150-450); RED BLOOD COUNT 4.72 MIL/MM3 (4.00-5.30); WHITE BLOOD COUNT 9.3 TH/MM3 (4.0-11.0)
[2016-11-01 11:48] LABS: ALKALINE PHOSPHATASE 69 U/L (45-117); ALT (GPT) 34 U/L (9-42); ANION GAP 8 MEQ/L (5-15); AST (GOT) 52 U/L (16-38); BICARBONATE 24.7 MEQ/L (21.0-32.0); BLOOD UREA NITROGEN 10 MG/DL (7-18); CHLORIDE 106 MEQ/L (98-107); CREATINE KINASE 1453 U/L (26-192); GLOMERULAR FILTRATION RATE 105 ML/MIN (>89); POTASSIUM 3.7 MEQ/L (3.5-5.1); SODIUM (NA) 139 MEQ/L (136-145); TOTAL BILIRUBIN ADULT 0.7 MG/DL (0.2-1.0)
[2016-11-01] MEDS: DEXT 5%-NACL 0.9% 1000 ML INJ 1,000 ML IV SCH ×2 (13:00→23:02)
[2016-11-01 13:25] VITALS: BP 122/80; PULSE 124; RESP 24; TEMP 97.6; O2SAT 97
--- NOTE | 2016-11-01 13:32 | HHI.PR ---
Subjective Remarks Follow up paranoid schizophrenia and tachycardia. Patient seen in room, minimal verbalization, appears scared and withdrawn. Per nursing team, patient has ate and drank very little since her admission. Has also been tachycardic. Patient did utter some words with possible indication of upset stomach and occasional nausea. She did state that "no one understands". [facility] Objective Vitals Vital Signs Date Time Temp Pulse Resp B/P Pulse Ox O2 Delivery O2 Flow Rate FiO2 11/01/16 09:56 166 133/86 11/01/16 06:09 97.1 140 16 122/68 99 10/31/16 22:00 129 141/97 10/31/16 18:46 98.2 135 17 143/71 96 10/31/16 18:19 151 10/31/16 13:25 144 Result Diagram: 11/01/16 1101 11/01/16 1101 Objective Remarks GENERAL: Well-nourished, well-developed patient, flat affect, appears scared and anxious. SKIN: No rashes, ecchymoses or lesions. Warm and dry. HEAD: Atraumatic. Normocephalic. No temporal or scalp tenderness. Pupils equal round and reactive. Nose without bleeding. Airway patent. No JVD or lymphadenopathy. Supple, nontender, no meningeal signs. CARDIOVASCULAR: Tachycardia without murmurs, gallops, or rubs. RESPIRATORY: CTA. Breath sounds equal bilaterally. No wheezes, rales, or rhonchi. GASTROINTESTINAL: Abdomen soft, non-tender, nondistended. Bowel sounds active MUSCULOSKELETAL: Extremities without clubbing, cyanosis, or edema. NEUROLOGICAL: Awake and alert. Minimal verbalization. Moves all extremity, but very stiff and anxious. Normal speech. A/P Assessment and Plan Patient is a 21 year old white female with no known primary medical history who came in to the hospital from [facility] under [place] act secondary to being belligerent at home, acting out raking things and making suicidal statements. As per record, questionable smoking K2 as per nursing staff at [facility]. The patient also refused to give urine specimen for test. 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 Patient is now admitted to inpatient psychiatry unit for further evaluation. Consulted for medical management, tachycardia. Psychosis, paranoid schizophrenia - managed by psychiatry team - Patient appears to be increasingly paranoid and stiffening motion every time she is being approach. Catatonic behavior assessed. Will move her to med- psych for further monitoring. Tachycardia - Most likely related to paranoia and anxiety, although has not resolved. Start IVF, D5W NS @ 100ml/hr. Encourage oral hydration and PO intake. Spoke to patient about possibility of NGT if she does not start eating. - EKG done 10/31, tachycardia [address] changes. - Ativan 2 mg scheduled IM and available PRN. - Unremarkable labs, reviewed. Previous toxicology negative. Possible neuroleptic malignant syndrome, with positive muscle rigidity, elevated total creatine kinase and CK, tachycardia, tremors, and catatonia. - Total creatinine kinase, 1453. Redraw CKMB and CPK in am. - Will stop Abilify. - Monitor closely. - Propranolol PRN if HR >120. Nausea - Zofran PRN - Monitor closely. DVT prophylaxis: encourage ambulation. Written by Giuliana Montelongo, acting as scribe for Dr. Salas on 11/01/16 at 13:04. Giuliana Montelongo Nov 01, 2016 13:32 - Zofran PRN - Monitor closely. DVT prophylaxis: encourage ambulation. Written by Giuliana Montelongo, acting as scribe for Dr. Salas on 11/01/16 at 13:04. Giuliana Montelongo Nov 01, 2016 13:32
[2016-11-01] MEDS ORDERED: PROPRANOLOL HCL 10 MG TAB PO PRN (14:00)
[2016-11-01 14:24] VITALS: PULSE 113; RESP 16; O2SAT 98
[2016-11-01] MEDS ORDERED: LORazepam 2 MG/ML VIAL IV ONE (15:30)
[2016-11-01] MEDS: diphenhydrAMINE HCL 50 MG/ML VIAL IM PRN (15:56)
[2016-11-01 21:08] VITALS: BP 129/82; PULSE 120; RESP 24; TEMP 98.5; O2SAT 97
[2016-11-02] MEDS: LORazepam 2 MG/ML VIAL IM SCH ×4 (05:20→21:46)
[2016-11-02 06:11] VITALS: BP 111/70; PULSE 106; RESP 20; TEMP 97.5; O2SAT 98
[2016-11-02] MEDS: DEXT 5%-NACL 0.9% 1000 ML INJ 1,000 ML IV SCH ×2 (09:00→21:20)
[2016-11-02 09:17] LABS: CKMB 9.4 NG/ML (0.5-3.6)
--- NOTE | 2016-11-02 11:28 | HHI.PR ---
Subjective Remarks Follow up paranoid schizophrenia and tachycardia. Patient seen and examined today by myself and Dr. Salas. Patient lying in bed, flat affect, minimal vocalization. Anxiety somewhat improved from yesterday. Per RN patient has been refusing food intake and propranolol. Heart rate more controlled but still tachycardic. Objective Vitals Vital Signs Date Time Temp Pulse Resp B/P Pulse Ox O2 Delivery O2 Flow Rate FiO2 11/02/16 06:11 97.5 106 20 111/70 98 11/01/16 21:08 98.5 120 24 129/82 97 11/01/16 14:24 113 16 98 11/01/16 13:25 97.6 124 24 122/80 97 I/O 11/01/16 11/01/16 11/01/16 11/02/16 11/02/16 11/02/16 07:00 15:00 23:00 07:00 15:00 23:00 Intake Total 340 ml Balance 340 ml Intake Oral 340 ml # Voids 2 Result Diagram: 11/01/16 1101 11/01/16 1101 Objective Remarks GENERAL: Well-nourished, well-developed patient, flat affect. SKIN: No rashes, ecchymoses or lesions. Warm and dry. HEAD: Atraumatic. Normocephalic. No temporal or scalp tenderness. Pupils equal round and reactive. Nose without bleeding. Airway patent. No JVD or lymphadenopathy. Supple, nontender, no meningeal signs. CARDIOVASCULAR: Tachycardia without murmurs, gallops, or rubs. RESPIRATORY: CTA. Breath sounds equal bilaterally. No wheezes, rales, or rhonchi. GASTROINTESTINAL: Abdomen soft, non-tender, nondistended. Bowel sounds active MUSCULOSKELETAL: Extremities without clubbing, cyanosis, or edema. NEUROLOGICAL: Awake and alert. Minimal verbalization. Moves all extremity. Normal speech. A/P Problem List: (1) Schizophrenia, paranoid type ICD Code: F20.0 Status: Acute (2) Unspecified psychosis ICD Code: F29 Status: Acute (3) Tachycardia ICD Code: R00.0 Status: Acute Assessment and Plan Patient is a 21 year old white female with no known primary medical history who came in to the hospital from [facility] under [place] act secondary to being belligerent at home, acting out raking things and making suicidal statements. As per record, questionable smoking K2 as per nursing staff at [facility]. The patient also refused to give urine specimen for test. 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 Patient is now admitted to inpatient psychiatry unit for further evaluation. Consulted for medical management, tachycardia. Psychosis, paranoid schizophrenia - managed by psychiatry team - Patient has flat affect, stiffening improved somewhat today. Catatonic behavior still assessed. Minimal vocalization. Tachycardia - Most likely related to paranoia and anxiety, has not resolved and patient refusing Propranolol. Continue IVF, D5W NS @ 100ml/hr. Encourage increased oral hydration and PO intake, still will minimal intake. Spoke to patient about possibility of NGT if she does not start eating. - EKG done 10/31 and reviewed, tachycardia [address] changes. - Ativan 2 mg scheduled IM and available PRN. - Unremarkable labs, reviewed. Previous toxicology negative. Possible neuroleptic malignant syndrome, with positive muscle rigidity, elevated total creatine kinase and CK, tachycardia, tremors, and catatonia. - Total creatinine kinase, 1453-->1323. Redraw CKMB and CPK in am. - Abilify stopped. - Monitor closely. - Propranolol PRN if HR >120. Nausea - Zofran PRN - Monitor closely. DVT prophylaxis: encourage ambulation. Written by Giuliana Montelongo, acting as scribe for Dr. Salas on 11/02/16 at 11:27. Improved NMS symptoms. Follow for two days. Could try a low dose trial of treatment again if improvement continues. This note was transcribed by scribe [Giuliana Montelongo]. I, Dr. Bi Salas personally performed the history, physical exam, and medical decision making; and confirmed the accuracy of the information in the transcribed note. Authenticated by Dr. Bi Salas on 11/02/16 at 15:08. Giuliana Montelongo Nov 02, 2016 11:28 Bi Salas MD Nov 02, 2016 15:08
[2016-11-02] MEDS: LORazepam 2 MG TAB PO PRN (11:48)
--- NOTE | 2016-11-02 15:38 | HHI.PYPN ---
Subjective Remarks Patient was seen today for psychiatric evaluation, patient is poorly cooperative , distant, guarded, visibly internally preoccupied, with a marked negativism and poverty of speech, however she is able to say that she feels better, she is oriented 3. As per staff patient has been paranoid, refusing to eat and take medications. During my evaluation no stiffness, no rigidity, tremors, are present. Review of Systems Other No somatic complaints Objective Alert: Yes [place]: Person Mood: Anxious Affect: Labile Memory Intact: Comment (Not formally assessed) Hallucinations: Auditory (remains internally preoccupied) Delusions: No Delusion Type: Other (difficult to assess because of altered mental status) Suicidal: Ideation (none voiced) Homicidal: Ideation (none voiced) Insight/Judgment Poor Labs Test 11/02/16 07:31 Total Creatine Kinase 1323 U/L Creatine Kinase MB 9.4 NG/ML Creatine Kinase MB % 0.7 % Vitals/IOs Vital Signs Date Time Temp Pulse Resp B/P Pulse Ox O2 Delivery O2 Flow Rate FiO2 11/02/16 06:11 97.5 106 20 111/70 98 Intake and Output 11/01/16 11/01/16 11/02/16 08:00 16:00 00:00 Intake Total 240 ml Balance 240 ml Assessment & Plan Problem List: (1) Brief psychotic disorder ICD Code: F23 (2) Catatonia Assessment & Plan: Patient continues to present negativism, poverty of speech, internal preoccupation, but no stiffness, tremors or rigidity observed. Patient is minimally verbal today able to show that she is oriented 3. We'll continue to hold antipsychotics until NMS is completely rule out. But, might consider starting antipsychotics tomorrow morning, a low dose. ICD Code: F06.1 Assessment & Plan Estimated LOS: days Justification for Cont. Inpt. Patient is acutely psychotic, and is to continue psychiatric hospitalization for stabilization.. Request HC Surrog/Guard Advoc?: Yes Damian Marie MD Nov 02, 2016 15:38
[2016-11-02 19:54] VITALS: BP 135/73; PULSE 137; RESP 18; TEMP 97.9; O2SAT 98
[2016-11-03 00:15] VITALS: BP 119/76; PULSE 105; RESP 18; TEMP 97.5; O2SAT 100
[2016-11-03] MEDS: LORazepam 2 MG/ML VIAL IM SCH ×3 (04:45→16:45)
[2016-11-03 06:19] VITALS: BP 127/60; PULSE 130; RESP 16; TEMP 97.7; O2SAT 99
[2016-11-03] MEDS: DEXT 5%-NACL 0.9% 1000 ML INJ 1,000 ML IV SCH ×3 (07:37→16:59)
[2016-11-03 11:00] VITALS: BP 132/93; PULSE 141
--- NOTE | 2016-11-03 11:53 | HHI.PR ---
Subjective Remarks Follow up paranoid schizophrenia and tachycardia. Patient seen and examined today. Patient is awake, still distant and guarded but at a few points in the assessment today patient was smiling, mouthing and verbalizing some words, and dancing to the music playing in her room. This behavior seems to be transient with patient slowly becoming more withdrawn and distant again. Stiffness has significantly improved today. Objective Vitals Vital Signs Date Time Temp Pulse Resp B/P Pulse Ox O2 Delivery O2 Flow Rate FiO2 11/03/16 06:19 97.7 130 16 127/60 99 11/03/16 00:15 97.5 105 18 119/76 100 11/02/16 19:54 97.9 137 18 135/73 98 I/O 11/02/16 11/02/16 11/02/16 11/03/16 11/03/16 11/03/16 07:00 15:00 23:00 07:00 15:00 23:00 Intake Total 340 ml 818 ml Balance 340 ml 818 ml Intake Oral 340 ml 250 ml IV Total 568 ml # Voids 2 3 # Bowel Movements 1 Result Diagram: 11/01/16 1101 11/01/16 1101 Objective Remarks GENERAL: Well-nourished, well-developed patient, affect flat in initial evaluation with some improvement throughout. SKIN: No rashes, ecchymoses or lesions. Warm and dry. HEAD: Atraumatic. Normocephalic. No temporal or scalp tenderness. Pupils equal round and reactive. Nose without bleeding. Airway patent. No JVD or lymphadenopathy. Supple, nontender, no meningeal signs. CARDIOVASCULAR: Tachycardia without murmurs, gallops, or rubs. RESPIRATORY: CTA. Breath sounds equal bilaterally. No wheezes, rales, or rhonchi. GASTROINTESTINAL: Abdomen soft, non-tender, nondistended. Bowel sounds active MUSCULOSKELETAL: Extremities without clubbing, cyanosis, or edema. NEUROLOGICAL: Awake and alert. Stiffness improved. No tremors noted. Minimal verbalization. Moves all extremity. Normal speech. A/P Problem List: (1) Schizophrenia, paranoid type ICD Code: F20.0 Status: Acute (2) Unspecified psychosis ICD Code: F29 Status: Acute (3) Tachycardia ICD Code: R00.0 Status: Acute Assessment and Plan Patient is a 21 year old white female with no known primary medical history who came in to the hospital from [facility] under [place] act secondary to being belligerent at home, acting out raking things and making suicidal statements. As per record, questionable smoking K2 as per nursing staff at [facility]. The patient also refused to give urine specimen for test. 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 Patient is now admitted to inpatient psychiatry unit for further evaluation. Consulted for medical management, tachycardia. Psychosis, paranoid schizophrenia - managed by psychiatry team - Patient's affect somewhat improved today, stiffness minimal. Minimal vocalization with some mouthing of words. Tachycardia - Most likely related to paranoia and anxiety, has not resolved and patient refusing Propranolol PRN. Will begin Propranolol scheduled. Encouraged patient of importance of taking her medications. Continue IVF, D5W NS @ 100ml/hr. Encourage increased oral hydration and PO intake. - EKG done 10/31 and reviewed by me, tachycardia [address] changes. - Ativan 2 mg scheduled IM and available PRN. - Unremarkable labs, reviewed. Previous toxicology negative. Possible neuroleptic malignant syndrome, with positive muscle rigidity, elevated total creatine kinase and CK, tachycardia, tremors, and catatonia. - Total creatinine kinase, 1453-->1323 --> 722. Improving. - Abilify stopped. - Monitor closely. - Propranolol 10 mg Q8hr scheduled. Nausea - Zofran PRN - Patient states improved today. DVT prophylaxis: encourage ambulation. Written by Giuliana Montelongo, acting as scribe for Dr. Salas on 11/03/16 at 11:52. Giuliana Montelongo Nov 03, 2016 11:53
--- NOTE | 2016-11-03 12:39 | HHI.PYPN ---
Subjective Remarks Patient seen for psychiatric evaluation today, patient seems to be more alert, with a brighter affect, following commands, smiling and even dancing with the music of TV, however is still minimally verbal, with marked negativism, poverty of speech, internal preoccupation, thought blocking. Review of Systems Other No somatic complaints Objective Alert: Yes [place]: Person Mood: Anxious, Oppositional Affect: Flat Memory Intact: Comment (Not formally assessed) Hallucinations: Auditory (remains internally preoccupied) Delusions: No Delusion Type: Other (difficult to assess because of altered mental status) Suicidal: Ideation (none voiced) Homicidal: Ideation (none voiced) Insight/Judgment poor Labs Test 11/03/16 04:24 Total Creatine Kinase 722 U/L Creatine Kinase MB 4.0 NG/ML Creatine Kinase MB % 0.6 % Vitals/IOs Vital Signs Date Time Temp Pulse Resp B/P Pulse Ox O2 Delivery O2 Flow Rate FiO2 11/03/16 06:19 97.7 130 16 127/60 99 Intake and Output 11/02/16 11/02/16 11/03/16 08:00 16:00 00:00 Intake Total 100 ml Balance 100 ml Assessment & Plan Problem List: (1) Brief psychotic disorder Assessment & Plan: We'll continue conservative treatment with Ativan, will hold antipsychotics until NMS is completely rule out. Patient is still tachycardic, CPKs trending down, but confusion, marked negativism, internal preoccupation, blocking thought, and his stiffness still noted. Reorder CBC, CMP, CPK. ICD Code: F23 (2) Catatonia ICD Code: F06.1 Assessment & Plan Estimated LOS: days Justification for Cont. Inpt. Patient is acutely psychotic, catatonic, needs to continue psychiatric hospitalization for stabilization Request HC Surrog/Guard Advoc?: Yes Damian Maire MD Nov 03, 2016 12:38
[2016-11-03] MEDS: PROPRANOLOL HCL 10 MG TAB PO SCH ×2 (14:00→21:25)
[2016-11-03 14:58] LABS: AUTOMATED NEUTROPHIL # 4.7 TH/MM3 (1.8-7.7); BASOPHIL % 0.4 % (0.0-2.0); EOSINOPHIL # 0.1 TH/MM3 (0-0.4); EOSINOPHIL % 1.1 % (0.0-4.0); HEMATOCRIT 39.7 % (35.0-46.0); HEMO FLAGS DIFF FINAL; LYMPH % 18.4 % (9.0-44.0); LYMPHOCYTE # 1.2 TH/MM3 (1.0-4.8); MEAN CELL VOLUME 90.3 FL (80.0-100.0); MEAN CORPUSCULAR HEMOGLOBIN 31.3 PG (27.0-34.0); MEAN CORPUSCULAR HGB CONC 34.6 % (32.0-36.0); MONO % 7.4 % (0.0-8.0); NEUT % 72.7 % (16.0-70.0); PLATELET COUNT 293 TH/MM3 (150-450); RED BLOOD COUNT 4.39 MIL/MM3 (4.00-5.30); RED CELL DISTRIBUTION WIDTH 12.9 % (11.6-17.2); WHITE BLOOD COUNT 6.4 TH/MM3 (4.0-11.0)
[2016-11-03 15:22] LABS: ALT (GPT) 31 U/L (9-42); ANION GAP 11 MEQ/L (5-15); AST (GOT) 40 U/L (16-38); BICARBONATE 24.3 MEQ/L (21.0-32.0); BLOOD UREA NITROGEN LESS THAN 1 MG/DL (7-18); CHLORIDE 108 MEQ/L (98-107); GLOMERULAR FILTRATION RATE 161 ML/MIN (>89); POTASSIUM 3.4 MEQ/L (3.5-5.1); SODIUM (NA) 143 MEQ/L (136-145)
[2016-11-03 15:24] LABS: ALKALINE PHOSPHATASE 61 U/L (45-117); CREATINE KINASE 672 U/L (26-192); TOTAL BILIRUBIN ADULT 0.4 MG/DL (0.2-1.0)
[2016-11-03 15:57] LABS: CKMB 2.9 NG/ML (0.5-3.6)
[2016-11-03 16:00] VITALS: BP 135/89; PULSE 135; RESP 18; TEMP 97.9; O2SAT 98
[2016-11-03] MEDS ORDERED: OLANZapine IM 10 MG VIAL IM ONE (21:00)
[2016-11-04] MEDS: DEXT 5%-NACL 0.9% 1000 ML INJ 1,000 ML IV SCH ×3 (01:00→21:38)
[2016-11-04] MEDS ORDERED: LORazepam 2 MG/ML VIAL IV ONE (03:45)
[2016-11-04] MEDS: LORazepam 2 MG/ML VIAL IM SCH ×5 (04:45→21:38)
[2016-11-04] MEDS: PROPRANOLOL HCL 10 MG TAB PO SCH ×3 (05:29→21:38)
[2016-11-04 06:50] VITALS: BP 121/78; PULSE 113; RESP 16; TEMP 98.1; O2SAT 98
--- NOTE | 2016-11-04 10:22 | HHI.PR ---
Subjective Remarks Follow up paranoid schizophrenia and tachycardia. Patient seen and examined today, sitting up in chair in her room with sitter at bedside. Patient awake, more of a flat affect today. Patient is vocalizing words intermittently. States something regarding aliens and living a double life. Spoke to RN at length about patient condition, does state that patient had some bouts of stiffness and catatonia overnight after receiving Zyprexa. Also states that she has been refusing her propranolol with continued elevated heart rate. RN does state that patient has increased PO intake. Objective Vitals Vital Signs Date Time Temp Pulse Resp B/P Pulse Ox O2 Delivery O2 Flow Rate FiO2 11/04/16 06:50 98.1 113 16 121/78 98 11/03/16 16:00 97.9 135 18 135/89 98 11/03/16 11:00 141 132/93 I/O 11/03/16 11/03/16 11/03/16 11/04/16 11/04/16 11/04/16 07:00 15:00 23:00 07:00 15:00 23:00 Intake Total 818 ml 360 ml 364 ml Balance 818 ml 360 ml 364 ml Intake Oral 250 ml 360 ml IV Total 568 ml 364 ml # Voids 3 2 # Bowel Movements 1 0 Result Diagram: 11/03/16 1409 11/03/16 1409 Objective Remarks GENERAL: Well-nourished, well-developed patient, affect flat in initial evaluation with some improvement throughout. SKIN: No rashes, ecchymoses or lesions. Warm and dry. HEAD: Atraumatic. Normocephalic. No temporal or scalp tenderness. Pupils equal round and reactive. Nose without bleeding. Airway patent. No JVD or lymphadenopathy. Supple, nontender, no meningeal signs. CARDIOVASCULAR: Tachycardia without murmurs, gallops, or rubs. RESPIRATORY: CTA. Breath sounds equal bilaterally. No wheezes, rales, or rhonchi. GASTROINTESTINAL: Abdomen soft, non-tender, nondistended. Bowel sounds active MUSCULOSKELETAL: Extremities without clubbing, cyanosis, or edema. NEUROLOGICAL: Awake and alert. Stiffness improved. No tremors noted. Verbalizing occasionally. Moves all extremity. Normal speech. A/P Problem List: (1) Schizophrenia, paranoid type ICD Code: F20.0 Status: Acute (2) Unspecified psychosis ICD Code: F29 Status: Acute (3) Tachycardia ICD Code: R00.0 Status: Acute Assessment and Plan Patient is a 21-year-old white female with no known primary medical history who came in to the hospital from [facility] under [place] act secondary to being belligerent at home, acting out raking things and making suicidal statements. As per record, questionable smoking K2 as per nursing staff at [facility]. The patient also refused to give urine specimen for test. 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 Patient is now admitted to inpatient psychiatry unit for further evaluation. Consulted for medical management, tachycardia. Psychosis, paranoid schizophrenia - managed by psychiatry team - Patient's affect flat today. Diminished stiffness. Minimal vocalization with some mouthing of words. No tremors noted. Tachycardia - Most likely related to paranoia and anxiety, has not resolved and patient refusing Propranolol PRN. Will begin Propranolol scheduled. Encouraged patient of importance of taking her medications. Continue IVF, D5W NS @ 100ml/hr. Encourage increased oral hydration and PO intake. - EKG done 10/31 and reviewed by me, tachycardia [address] changes. - Ativan 2 mg scheduled IM and available PRN. - Unremarkable labs, reviewed. Previous toxicology negative. Possible neuroleptic malignant syndrome, with positive muscle rigidity, elevated total creatine kinase and CK, tachycardia, tremors, and catatonia. - Total creatinine kinase, 1453-->1323 --> 722 --> 672. Awaiting this am labs. - Muscle rigidity and tremors much improved, more sporadic. Continue IVF at this time, and await CPK levels today depending on level, will dc IVF since patient has been increasing PO intake. - Abilify stopped. - Monitor closely. - Propranolol 10 mg Q8hr scheduled. Encouraged patient to take this, has been refusing lately. Nausea - Zofran PRN - Patient states improved today. DVT prophylaxis: encourage ambulation. Giuliana Montelongo Nov 04, 2016 10:21
[2016-11-04 11:00] VITALS: BP 140/82; PULSE 112; TEMP 96.8
--- NOTE | 2016-11-04 14:05 | HHI.PYPN ---
Subjective Remarks Patient was seen for psychiatric reevaluation today patient was acutely catatonic, stuporous, very rigid, mute, waxy flexibility, marked echopraxia. As per nurse, last night patient was extremely restless, with several no- purpose and bizarre movements. Review of Systems Other No somatic complaints Objective Alert: Yes [place]: Person Mood: Oppositional Affect: Flat Memory Intact: Comment (Not formally assessed) Hallucinations: Auditory (remains internally preoccupied) Delusions: No Delusion Type: Other (difficult to assess because of altered mental status) Suicidal: Ideation (none voiced) Homicidal: Ideation (none voiced) Insight/Judgment Poor Labs Test 11/03/16 14:09 White Blood Count 6.4 TH/MM3 Red Blood Count 4.39 MIL/MM3 Hemoglobin 13.7 GM/DL Hematocrit 39.7 % Mean Corpuscular Volume 90.3 FL Mean Corpuscular Hemoglobin 31.3 PG Mean Corpuscular Hemoglobin 34.6 % Concent Red Cell Distribution Width 12.9 % Platelet Count 293 TH/MM3 Mean Platelet Volume 8.2 FL Neutrophils (%) (Auto) 72.7 % Lymphocytes (%) (Auto) 18.4 % Monocytes (%) (Auto) 7.4 % Eosinophils (%) (Auto) 1.1 % Basophils (%) (Auto) 0.4 % Neutrophils # (Auto) 4.7 TH/MM3 Lymphocytes # (Auto) 1.2 TH/MM3 Monocytes # (Auto) 0.5 TH/MM3 Eosinophils # (Auto) 0.1 TH/MM3 Basophils # (Auto) 0.0 TH/MM3 CBC Comment DIFF FINAL Differential Comment Sodium Level 143 MEQ/L Potassium Level 3.4 MEQ/L Chloride Level 108 MEQ/L Carbon Dioxide Level 24.3 MEQ/L Anion Gap 11 MEQ/L Blood Urea Nitrogen LESS THAN 1 MG/DL Creatinine 0.49 MG/DL Estimat Glomerular Filtration 161 ML/MIN Rate Random Glucose 101 MG/DL Calcium Level 9.5 MG/DL Total Bilirubin 0.4 MG/DL Aspartate Amino Transf 40 U/L (AST/SGOT) Alanine Aminotransferase 31 U/L (ALT/SGPT) Alkaline Phosphatase 61 U/L Total Creatine Kinase 672 U/L Creatine Kinase MB 2.9 NG/ML Creatine Kinase MB % 0.4 % Total Protein 6.9 GM/DL Albumin 4.0 GM/DL Vitals/IOs Vital Signs Date Time Temp Pulse Resp B/P Pulse Ox O2 Delivery O2 Flow Rate FiO2 11/04/16 06:50 98.1 113 16 121/78 98 Intake and Output 11/03/16 11/03/16 11/04/16 08:00 16:00 00:00 Intake Total 818 ml 240 ml 120 ml Balance 818 ml 240 ml 120 ml Assessment & Plan Problem List: (1) Brief psychotic disorder ICD Code: F23 (2) Catatonia Assessment & Plan: Patient is acutely catatonic at this moment, we will give an additional dose of Ativan 2 mg IV. CBC, CMP and CPK reviewed, vital signs almost review, there basically under normal limits, CPK already trending down. We'll start Abilify 5 mg daily. ICD Code: F06.1 Assessment & Plan Estimated LOS: days Justification for Cont. Inpt. Patient acutely psychotic/catatonic, needs to continue psychiatric admission for stabilization Request HC Surrog/Guard Advoc?: Yes Damian Marie MD Nov 04, 2016 14:05
[2016-11-04] MEDS: ARIPiprazole 5 MG TAB PO SCH (14:36)
[2016-11-04 15:22] LABS: BICARBONATE 25.3 MEQ/L (21.0-32.0); POTASSIUM 3.3 MEQ/L (3.5-5.1)
[2016-11-04 16:15] LABS: CKMB 3.2 NG/ML (0.5-3.6)
[2016-11-04] MEDS ORDERED: POTASSIUM CHLORIDE 25 MEQ EFFERVESCENT TAB PO ONE (17:00)
[2016-11-04 19:32] VITALS: BP 137/89; PULSE 119; TEMP 97.3; O2SAT 99
[2016-11-05] MEDS: LORazepam 2 MG/ML VIAL IM SCH ×6 (01:51→21:40)
[2016-11-05] MEDS: PROPRANOLOL HCL 10 MG TAB PO SCH ×3 (05:40→21:40)
[2016-11-05 06:06] VITALS: BP 122/71; PULSE 111; RESP 18; TEMP 97.9; O2SAT 97
[2016-11-05] MEDS: DEXT 5%-NACL 0.9% 1000 ML INJ 1,000 ML IV SCH ×2 (07:00→17:00)
[2016-11-05] MEDS ORDERED: POTASSIUM CHLORIDE 10 MEQ CONTROLLED RELEASE TAB PO ONE (08:15)
[2016-11-05] MEDS: ARIPiprazole 5 MG TAB PO SCH (09:00)
[2016-11-05] MEDS: POTASSIUM CHLORIDE 25 MEQ EFFERVESCENT TAB PO SCH ×2 (14:00→21:39)
--- NOTE | 2016-11-05 15:14 | HHI.PYPN ---
Subjective Remarks Patient was seen today for psychiatric evaluation, patient shows a moderate improvement in her catatonia and mental status. Patient is able to participate in a partially conversation, follow verbal commands. She has been writing multiple words in a piece of paper. No stiffness, no mannerism, no perplexity, no echopraxia present today. However, patient continues to be internally stimulated, disorganized, guarded, with prominent refractory speech and blocking thought. Review of Systems Other No somatic complaints Objective Alert: Yes [place]: Person Mood: Calm Affect: Flat Memory Intact: Comment (Not formally assessed) Hallucinations: Auditory (remains internally preoccupied) Delusions: No Delusion Type: Paranoid, Other Suicidal: Ideation (none voiced) Homicidal: Ideation (none voiced) Insight/Judgment Poor Vitals/IOs Vital Signs Date Time Temp Pulse Resp B/P Pulse Ox O2 Delivery O2 Flow Rate FiO2 11/05/16 06:06 97.9 111 18 122/71 97 Intake and Output 11/04/16 11/04/16 11/05/16 08:00 16:00 00:00 Intake Total 364 ml 600 ml Balance 364 ml 600 ml Assessment & Plan Problem List: (1) Brief psychotic disorder Assessment & Plan: Patient shows mild to moderate response to psychotropics. Catatonia seems to be improved. Patient continues to be acutely psychotic. We' ll continue Ativan 2 mg IM every 4 hours, Abilify 5 mg at bedtime. ICD Code: F23 (2) Catatonia ICD Code: F06.1 Assessment & Plan Estimated LOS: days Justification for Cont. Inpt. Patient is acutely catatonic, acutely psychotic and needs to continue on psychiatric hospitalization for stabilization Request HC Surrog/Guard Advoc?: Yes Damian Marie MD November 05, 2016 15:14
--- NOTE | 2016-11-05 15:18 | HHI.PR ---
Subjective Remarks Pt was verbally non-responsive when seen. She has intermittently written noted to staff indicating she is a vegan and is wanting to write notes to communicate her wants and needs to staff. However, when seen this afternoon pt was unable to share her thoughts. In speaking with Hospitalist TREV, pt has received Ativan and evidenced worsening psychotic symptoms. Additionally, when placed on Zyprexa, she has evidenced catatonia. Objective Vitals Vital Signs Date Time Temp Pulse Resp B/P Pulse Ox O2 Delivery O2 Flow Rate FiO2 11/05/16 06:06 97.9 111 18 122/71 97 11/04/16 19:32 97.3 119 137/89 99 I/O 11/04/16 11/04/16 11/04/16 11/05/16 11/05/16 11/05/16 07:00 15:00 23:00 07:00 15:00 23:00 Intake Total 364 ml 600 ml 2636 ml Balance 364 ml 600 ml 2636 ml Intake Oral 600 ml 600 ml IV Total 364 ml 2036 ml # Voids 2 4 # Bowel Movements 0 Result Diagram: 11/03/16 1409 11/04/16 1451 Other Results No other results available. Imaging No imaging within past 24 hours. Objective Remarks GENERAL: SKIN: Warm and dry. HEAD: Normocephalic. EYES: No scleral icterus. No injection or drainage. NECK: Supple, trachea midline. No JVD or lymphadenopathy. CARDIOVASCULAR: Regular rate and rhythm without murmurs, gallops, or rubs. RESPIRATORY: Breath sounds equal bilaterally. No accessory muscle use. GASTROINTESTINAL: Abdomen soft, non-tender, nondistended. MUSCULOSKELETAL: No cyanosis, or edema. BACK: Nontender without obvious deformity. Procedures No procedures completed within the past 24 hours. Medications and IVs Current Medications Medications (Trade) Dose Ordered Sig/Tien Route Start Time Stop Time Status Last Admin (Milk Of Magnesia Liq) 30 ml Q6H PRN PO 10/28/16 15:00 (Benadryl) 50 mg Q6H PRN PO 10/29/16 17:00 10/31/16 21:06 (Benadryl Inj) 50 mg Q6H PRN IM 10/29/16 17:00 11/01/16 15:56 (Tylenol) 650 mg Q4H PRN PO 10/29/16 17:00 (Ativan) 2 mg Q6H PRN PO 10/31/16 17:00 11/02/16 11:48 Lorazepam 2 mg 2 mg Q6H PRN IM 10/31/16 17:00 11/01/16 10:05 (D5W-NS 1000 ml Inj) 1,000 ml @ 100 mls/hr Q10H IV 11/01/16 13:00 11/04/16 21:38 (Zofran Inj) 4 mg Q8HR PRN IV PUSH 11/01/16 13:30 (Inderal) 10 mg Q8HR PO 11/03/16 14:00 11/05/16 13:54 (Abilify) 5 mg DAILY PO 11/04/16 15:00 11/05/16 09:00 (Ativan Inj) 2 mg Q4H IM 11/04/16 22:00 11/05/16 13:54 (K-Lyte Cl Eff) 25 meq Q12HR PO 11/05/16 14:00 11/05/16 21:01 Urinary Catheter: No Vascular Central Line Catheter: No A/P Problem List: (1) Schizophrenia, paranoid type ICD Code: F20.0 Status: Acute (2) Unspecified psychosis ICD Code: F29 Status: Acute (3) Tachycardia ICD Code: R00.0 Status: Acute (4) Hypokalemia ICD Code: E87.6 Status: Acute Assessment and Plan Psychosis, paranoid schizophrenia - managed by psychiatry team -pt observed to visually track people in the room. She evidenced possible irritability when asked questions and seemingly tried to answer. As noted above , pt has written some responses to staff earlier in the day. Further attempt at writing is disorganized with notable scribbling. -Wonder if she will benefit from ECT. Defer to psychiatry team. Hypokalemia -replacement ordered. Due to pt's decreased PO intake effervescent formulation. -check labs. -magnesium level ordered. Tachycardia - Most likely related to paranoia and anxiety, has not resolved. Propranolol scheduled. Continue IVF, D5W NS @ 100ml/hr. -Encourage increased oral hydration and PO intake. - Ativan 2 mg scheduled IM and available PRN. - Unremarkable labs, reviewed. Possible neuroleptic malignant syndrome, with positive muscle rigidity, elevated total creatine kinase and CK, tachycardia, tremors, and catatonia. - Total creatinine kinase, 1453-->1323 --> 722 --> 672-->472. Continue to monitor CPK - Muscle rigidity and tremors much improved, more sporadic. Continue IVF at this time. - Abilify 10 mg has been stopped, pt now on 5 mg PO once a day.. - Monitor closely. - Propranolol 10 mg Q8hr scheduled. Pt has had 4 doses in past 24 hours.. Nausea - Zofran PRN DVT prophylaxis: encourage ambulation. Case discussed with pt, RN, Hospitalist TREV, and Gracy Booth. Written by Jonny Castaneda, acting as scribe for Dr. Dubose on 11/05/16 at 15:17. This note was transcribed by scribe [TREV Curiel]. I, Dr. Mary Anne Dubose personally performed the history, physical exam, and medical decision making; and confirmed the accuracy of the information in the transcribed note. Authenticated by Dr. Mary Anne Dubose on 11/05/16 at 1530. Jonny Castaneda Jr. November 05, 2016 15:18 Mary Anne Dubose MD November 05, 2016 17:22
[2016-11-05 18:48] LABS: MAGNESIUM 1.9 MG/DL (1.5-2.5)
[2016-11-05 19:05] LABS: CKMB 3.4 NG/ML (0.5-3.6)
[2016-11-05 22:51] VITALS: BP 130/90; PULSE 107; RESP 19; TEMP 98.2; O2SAT 99
[2016-11-06 00:48] VITALS: BP 116/79; PULSE 117; RESP 16
[2016-11-06] MEDS: LORazepam 2 MG/ML VIAL IM SCH ×3 (01:59→10:00)
[2016-11-06] MEDS: DEXT 5%-NACL 0.9% 1000 ML INJ 1,000 ML IV SCH ×3 (02:00→23:00)
[2016-11-06 02:54] VITALS: BP 120/78; PULSE 113
[2016-11-06] MEDS: PROPRANOLOL HCL 10 MG TAB PO SCH ×3 (05:57→21:31)
[2016-11-06 06:22] VITALS: BP 118/77; PULSE 119; RESP 18; TEMP 97.9; O2SAT 99
[2016-11-06 08:20] LABS: BICARBONATE 25.7 MEQ/L (21.0-32.0); POTASSIUM 3.6 MEQ/L (3.5-5.1)
[2016-11-06] MEDS: ARIPiprazole 5 MG TAB PO SCH (09:00)
[2016-11-06 09:07] LABS: CKMB 2.4 NG/ML (0.5-3.6)
--- NOTE | 2016-11-06 11:59 | HHI.PR ---
Subjective Remarks Pt encountered sitting a bed, coloring. She was quiet and did not verbalize during the session. She was tracking and seemingly involved with the persons in the room. Pt indicated having pain in her right leg. No other issues noted or reported. Objective Vitals Vital Signs Date Time Temp Pulse Resp B/P Pulse Ox O2 Delivery O2 Flow Rate FiO2 11/06/16 06:22 97.9 119 18 118/77 99 11/06/16 02:54 113 120/78 11/06/16 00:48 117 16 116/79 11/05/16 22:51 98.2 107 19 130/90 99 I/O 11/05/16 11/05/16 11/05/16 11/06/16 11/06/16 11/06/16 07:00 15:00 23:00 07:00 15:00 23:00 Intake Total 2636 ml 1960 ml 640 ml 120 ml Output Total 1 ml Balance 2636 ml 1960 ml 639 ml 120 ml Intake Oral 600 ml 360 ml 120 ml IV Total 2036 ml 1600 ml 640 ml Output Stool Total 1 ml # Voids 4 5 6 # Bowel Movements 0 1 1 Result Diagram: 11/03/16 1409 11/06/16 0732 Other Results CPK level now at 360. Imaging N imaging reports within the past 24 hours. Objective Remarks GENERAL: Pt attentive but did not verbally, or in writing, respond to questions. She did nod her once. SKIN: Warm and dry. HEAD: Normocephalic. EYES: No scleral icterus. No injection or drainage. NECK: Supple, trachea midline. No JVD or lymphadenopathy. CARDIOVASCULAR: Tachycardic rate with normal rhythm without murmurs, gallops, or rubs. RESPIRATORY: Breath sounds equal bilaterally. No accessory muscle use. GASTROINTESTINAL: Abdomen soft, non-tender, nondistended. MUSCULOSKELETAL: No cyanosis, or edema. Pt evidenced discomfort when checking her right ankle for swelling. BACK: Nontender without obvious deformity. CVA tenderness not elicited upon palpation. Procedures No procedures completed within the past 24 hours. Medications and IVs Current Medications Medications (Trade) Dose Ordered Sig/Tien Route Start Time Stop Time Status Last Admin (Milk Of Magnesia Liq) 30 ml Q6H PRN PO 10/28/16 15:00 (Benadryl) 50 mg Q6H PRN PO 10/29/16 17:00 10/31/16 21:06 (Benadryl Inj) 50 mg Q6H PRN IM 10/29/16 17:00 11/01/16 15:56 (Tylenol) 650 mg Q4H PRN PO 10/29/16 17:00 (Ativan) 2 mg Q6H PRN PO 10/31/16 17:00 11/02/16 11:48 Lorazepam 2 mg 2 mg Q6H PRN IM 10/31/16 17:00 11/01/16 10:05 (D5W-NS 1000 ml Inj) 1,000 ml @ 100 mls/hr Q10H IV 11/01/16 13:00 11/06/16 11:29 (Zofran Inj) 4 mg Q8HR PRN IV PUSH 11/01/16 13:30 (Inderal) 10 mg Q8HR PO 11/03/16 14:00 11/06/16 05:57 (Abilify) 5 mg DAILY PO 11/04/16 15:00 11/06/16 09:00 (Ativan Inj) 2 mg Q4H IM 11/04/16 22:00 11/06/16 10:00 Urinary Catheter: No Vascular Central Line Catheter: No A/P Problem List: (1) Schizophrenia, paranoid type ICD Code: F20.0 Status: Acute (2) Unspecified psychosis ICD Code: F29 Status: Acute (3) Tachycardia ICD Code: R00.0 Status: Acute (4) Hypokalemia ICD Code: E87.6 Status: Acute Assessment and Plan Psychosis, paranoid schizophrenia - managed by psychiatry team -pt observed to visually track people in the room. She is noted to write responses and is reported to converse with staff which was not observed at this visit by hospitalist team. Hypokalemia -replacement ordered. Due to pt's decreased PO intake effervescent formulation ordered. -Potassium level 3.6 -magnesium level ordered-result is 1.9 (WNL). - will order labs for morning. If levels stable, consider stopping further replacement. Tachycardia - Most likely related to paranoia and anxiety, has not resolved. Propranolol scheduled. Continue IVF, D5W NS @ 100ml/hr. -Encourage increased oral hydration and PO intake. - Ativan 2 mg scheduled IM and available PRN. - Unremarkable labs, reviewed. Possible neuroleptic malignant syndrome, with positive muscle rigidity, elevated total creatine kinase and CK, tachycardia, tremors, and catatonia. - Total creatinine kinase, 1453-->1323 --> 722 --> 672-->472--> 360. Continue to monitor CPK - Muscle rigidity and tremors much improved, more sporadic. Continue IVF at this time. - Abilify 10 mg has been stopped, pt now on 5 mg PO once a day.. - Monitor closely. - Propranolol 10 mg Q8hr scheduled. Pt has had two doses in past 24 hours.. Nausea - Zofran PRN DVT prophylaxis: encourage ambulation. Case discussed with pt, RN, and Gracy Booth. Written by Jonny Castaneda, acting as scribe for Dr. Dubose on 11/06/16 at 13:24. This note was transcribed by scribe [Jonny Castaneda]. I, Dr. Mary Anne Dubose personally performed the history, physical exam, and medical decision making; and confirmed the accuracy of the information in the transcribed note. Authenticated by Dr. Mary Anne Dubose on 11/06/16 at 1335 Jonny Castaneda Jr. November 06, 2016 11:59 Mary Anne Dubose MD November 06, 2016 20:55
--- NOTE | 2016-11-06 13:38 | HHI.PYPN ---
Subjective Remarks Patient is seen for psychiatric reevaluation today, more alert, more participant in conversation, with a brighter affect , but still internally stimulated, reticent and with fragmented thought. No stiffness, tremors, no mannerisms are present. No agitation, no aggressive behavior. Patient has been compliant with her medications. Still eating minimally, but anymore than before. She hasn't needed ETO's in the last 24 hours Review of Systems ROS Limitations: Uncooperative Objective Alert: Yes [place]: Person Mood: Calm Affect: Flat Memory Intact: Comment (Not formally assessed) Hallucinations: Auditory (remains internally preoccupied) Delusions: No Delusion Type: Paranoid, Other Suicidal: Ideation (none voiced) Homicidal: Ideation (none voiced) Insight/Judgment poor Labs Test 11/05/16 11/06/16 17:49 07:32 Magnesium Level 1.9 MG/DL Total Creatine Kinase 479 U/L 360 U/L Creatine Kinase MB 3.4 NG/ML 2.4 NG/ML Creatine Kinase MB % 0.7 % 0.7 % Sodium Level 142 MEQ/L Potassium Level 3.6 MEQ/L Chloride Level 109 MEQ/L Carbon Dioxide Level 25.7 MEQ/L Anion Gap 7 MEQ/L Blood Urea Nitrogen 1 MG/DL Creatinine 0.53 MG/DL Estimat Glomerular Filtration 147 ML/MIN Rate Random Glucose 97 MG/DL Calcium Level 9.1 MG/DL Vitals/IOs Vital Signs Date Time Temp Pulse Resp B/P Pulse Ox O2 Delivery O2 Flow Rate FiO2 11/06/16 06:22 97.9 119 18 118/77 99 Intake and Output 11/05/16 11/05/16 11/06/16 08:00 16:00 00:00 Intake Total 2636 ml 1320 ml 640 ml Balance 2636 ml 1320 ml 640 ml Assessment & Plan Problem List: (1) Brief psychotic disorder ICD Code: F23 (2) Catatonia Assessment & Plan: We will switch IM Ativan 2 mg, 2 Ativan 2 mg by mouth, will titrate down to every 6 hours. We will increase Abilify to 10 mg daily for psychosis. Encourage the patient to get out of bed, walk, participate in group activities. Brief supportive psychotherapy provided ICD Code: F06.1 Assessment & Plan Estimated LOS: days Justification for Cont. Inpt. Patient will continue psychiatric stabilization for stabilization of psychosis and catatonia Request HC Surrog/Guard Advoc?: Yes Damian Marie MD November 06, 2016 13:38
[2016-11-06] MEDS: LORazepam 2 MG/ML VIAL PO SCH (17:50)
[2016-11-06 18:02] VITALS: BP 128/59; PULSE 105; RESP 20; TEMP 97.6; O2SAT 97
[2016-11-06 19:25] VITALS: BP 125/89; PULSE 105; RESP 20; TEMP 97.6
[2016-11-06 23:00] VITALS: BP 137/79; PULSE 97; RESP 18; TEMP 97.5
[2016-11-07] MEDS: PROPRANOLOL HCL 10 MG TAB PO SCH ×3 (06:00→21:36)
[2016-11-07] MEDS: LORazepam 2 MG/ML VIAL PO SCH ×4 (06:00→21:36)
[2016-11-07 06:03] VITALS: BP 130/83; PULSE 100; RESP 16; TEMP 97.5; O2SAT 99
[2016-11-07 07:40] LABS: ANION GAP 5 MEQ/L (5-15); BICARBONATE 28.5 MEQ/L (21.0-32.0); BLOOD UREA NITROGEN LESS THAN 1 MG/DL (7-18); CHLORIDE 109 MEQ/L (98-107); GLOMERULAR FILTRATION RATE 157 ML/MIN (>89); POTASSIUM 3.7 MEQ/L (3.5-5.1); SODIUM (NA) 142 MEQ/L (136-145)
[2016-11-07] MEDS: ARIPiprazole 10 MG TAB PO SCH (08:07)
--- NOTE | 2016-11-07 09:11 | HHI.PR ---
Subjective Remarks Follow up paranoid schizophrenia and tachycardia. Patient seen and examined today. Patient appears more alert today. She responds to questions. Discussed with Dr. Marie at the bedside who does not think patient has NMS and plans to decrease patient's Ativan and increase dose of Abilify. Patient is agreeable to taking medications by mouth. She is getting ready to go outside for some fresh air. She does indicate that she has some tenderness in her calves with palpation. Objective Vitals Vital Signs Date Time Temp Pulse Resp B/P Pulse Ox O2 Delivery O2 Flow Rate FiO2 11/07/16 06:03 97.5 100 16 130/83 99 11/06/16 23:00 97.5 97 18 137/79 11/06/16 19:25 97.6 105 20 125/89 11/06/16 18:02 97.6 105 20 128/59 97 I/O 11/06/16 11/06/16 11/06/16 11/07/16 11/07/16 11/07/16 07:00 15:00 23:00 07:00 15:00 23:00 Intake Total 640 ml 240 ml 160 ml 0 ml Output Total 1 ml Balance 639 ml 240 ml 160 ml 0 ml Intake Oral 240 ml 160 ml 0 ml IV Total 640 ml Output Stool Total 1 ml # Voids 6 3 # Bowel Movements 1 Result Diagram: 11/03/16 1409 11/07/16 0647 Other Results last CPK 360 on 11/06 Objective Remarks GENERAL: Well-nourished, well-developed patient INAD. Awake and more alert today. Flat affect. SKIN: No rashes, ecchymoses or lesions. Warm and dry. HEAD: Atraumatic. Normocephalic. EOMI. CARDIOVASCULAR: Tachycardia without murmurs, gallops, or rubs. RESPIRATORY: CTA. Breath sounds equal bilaterally. No wheezes, rales, or rhonchi. GASTROINTESTINAL: Abdomen soft, non-tender, nondistended. Bowel sounds active MUSCULOSKELETAL: Extremities without clubbing, cyanosis, or edema. Does indicate some discomfort when palpating calves. Calves are supple bilaterally. NEUROLOGICAL: Awake and alert. Stiffness improved. No tremors noted. Verbalizing occasionally. Moves all extremities. Procedures No procedures completed within the past 24 hours. Medications and IVs Active Medications Aripiprazole (Abilify) 10 mg DAILY PO Last administered on 11/07/16 08:07; Admin Dose 10 MG; Start 11/07/16 at 09:00 Lorazepam (Ativan Inj) 2 mg Q6HR PO Last administered on 11/07/16 06:00; Admin Dose 2 MG; Start 11/06/16 at 18:00 A/P Problem List: (1) Schizophrenia, paranoid type ICD Code: F20.0 Status: Acute (2) Unspecified psychosis ICD Code: F29 Status: Acute (3) Tachycardia ICD Code: R00.0 Status: Acute (4) Hypokalemia ICD Code: E87.6 Status: Acute Assessment and Plan Patient is a 21-year-old white female with no known primary medical history who came in to the hospital from [facility] under De La Torre act secondary to being belligerent at home, acting out raking things and making suicidal statements. As per record, questionable smoking K2 as per nursing staff at [facility]. The patient also refused to give urine specimen for test. 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 Patient is now admitted to inpatient psychiatry unit for further evaluation. Consulted for medical management, tachycardia. Psychosis, paranoid schizophrenia -Management by psychiatry team Tachycardia - Most likely related to paranoia and anxiety, improved with scheduled Propranolol. - Encourage increased oral hydration and PO intake. - Unremarkable labs, reviewed. Previous toxicology negative. Possible neuroleptic malignant syndrome, with positive muscle rigidity, elevated total creatine kinase and CK, tachycardia, tremors, and catatonia. - Total creatinine kinase, 1453-->360 - Discussed with Dr. Marie - likely not NMS. He is to increase dose of Abilify to 10mg and Ativan 2mg q 6hr po - No appreciable muscle rigidity or tremors noted on today's examination. - Discussed with nursing staff, continued poor oral intake. Continue IVF at this time, will dc IVF since patient has been increasing PO intake. - Abilify stopped. - Monitor closely. - Continue Propranolol 10 mg Q8hr scheduled. Hypokalemia - Resolved BLE pain/discomfort - Bilateral US to r/o DVT DVT prophylaxis: encourage ambulation. Discussed with Dr. Way, Dr. Marie, nursing staff and patient Carol Holder November 07, 2016 09:11
--- NOTE | 2016-11-07 09:56 | HHI.PYPN ---
Subjective Remarks Patient was seen for psychiatric reevaluation today along with nursing in charge Yasemin, oncology social worker Latrice, patient was found in her bed, calm, superficially cooperative, still distant and guarded. However, patient is more communicative today, she was able to explains that the reason she is in the hospital is because "something happened to me after I broke with boyfriend". Patient says that she doesn't have any previous psychiatric history, she has never been diagnosed with bipolar schizophrenia, she doesn't have any suicidal attempt other than suicidal thoughts at the age of [age] years old, at that times she addressed does feelings with counseling at school. She also says that she has been having mixed emotions, moments of happiness and also moments of deep sadness and melancholia. At this moment she reports happy mood, she says that she wants to have music, she wants to dance, and go out to breath fresh air. During the evaluation patient had moments of fluidity of speech meets with perplexity, fragmented and blocking thought. She also has periods of lucidity in which she could follow normally the conversation, mixed with disorganized and loosening of association. She is fully oriented 3. Patient has been compliant with her medications, no agitation, no aggressive behavior no stiffness, no mannerism, echopraxia, no pronounced stuporousity, psychomotor agitation present. Review of Systems Other Patient does not endorse somatic complaints Objective Alert: Yes [place]: Person, Place, Date Mood: Calm Affect: Flat Memory Intact: Immediate, Recent, Comment Hallucinations: Auditory (remains internally preoccupied) Delusions: No Delusion Type: Other (none elicited) Suicidal: Ideation (none voiced) Homicidal: Ideation (none voiced) Insight/Judgment Poor Labs Test 11/07/16 06:47 Sodium Level 142 MEQ/L Potassium Level 3.7 MEQ/L Chloride Level 109 MEQ/L Carbon Dioxide Level 28.5 MEQ/L Anion Gap 5 MEQ/L Blood Urea Nitrogen LESS THAN 1 MG/DL Creatinine 0.50 MG/DL Estimat Glomerular Filtration 157 ML/MIN Rate Random Glucose 108 MG/DL Calcium Level 8.9 MG/DL Vitals/IOs Vital Signs Date Time Temp Pulse Resp B/P Pulse Ox O2 Delivery O2 Flow Rate FiO2 11/07/16 06:03 97.5 100 16 130/83 99 Intake and Output 11/06/16 11/06/1617 08:00 16:00 00:00 Intake Total 760 ml 120 ml 160 ml Output Total 1 ml Balance 759 ml 120 ml 160 ml Assessment & Plan Problem List: (1) Catatonia ICD Code: F06.1 (2) Unspecified psychosis Assessment & Plan: Significant evaluation today patient continues to show slow improvement in her mood and thought process. She does not seem to be catatonic at this moment. Psychosis persists. There are some elements that suggest a mono/bipolar mood component in this presentation, most probably depression. We will start Paxil 10 mg. We'll continue taper down Ativan to 2 mg by mouth every 8 hours. Extensive support, motivation psycho education provided. We'll try to engage patient in individual and group therapies. Also will try to schedule a family meeting as soon as possible. ICD Code: F29 Assessment & Plan Estimated LOS: days Justification for Cont. Inpt. Patient continues to be psychotic/catatonic and needs to remain in inpatient level of care Request HC Surrog/Guard Advoc?: Yes Damian Marie MD November 07, 2016 09:56
[2016-11-07] MEDS: PARoxetine HCL 20 MG TAB PO SCH (10:00)
[2016-11-07] MEDS: LORazepam 2 MG/ML VIAL IM PRN (11:44)
--- NOTE | 2016-11-07 11:50 | RADRPT ---
EXAM DATE/TIME: 11/07/2016 10:57 [facility] COMPARISON: No previous studies available for comparison. INDICATIONS : Bilateral leg pain. MEDICAL HISTORY : Diarrhea. Claustrophic. SURGICAL HISTORY : ENCOUNTER: Initial ACUITY: 1 day PAIN SCORE: 0/10 LOCATION: Bilateral leg. TECHNIQUE: Venous ultrasound of the left and right leg was performed from the inguinal ligament to the proximal calf. Real-time, color Doppler and spectral tracing, compression and augmentation techniques were us ed. FINDINGS: RIGHT LEG: There is normal compressibility of the deep venous system from the inguinal region to the proximal ca lf. No echogenic clot is seen in the lumen of the common femoral, femoral, popliteal, and posterior tibial veins. There is a normal response of the venous system to proximal and distal augmentation an d respiration. LEFT LEG: There is normal compressibility of the deep venous system from the inguinal region to the proximal ca lf. No echogenic clot is seen in the lumen of the common femoral, femoral, popliteal, and posterior tibial veins. There is a normal response of the venous system to proximal and distal augmentation an d respiration. CONCLUSION: No evidence of deep venous thrombosis within the lower extremities. Philippe Menendez MD on November 07, 2016 at 11:47 Board Certified Radiologist. This report was verified electronically.
[2016-11-07] MEDS ORDERED: LORazepam 2 MG/ML VIAL PO SCH (12:00)
[2016-11-07] MEDS: DEXT 5%-NACL 0.9% 1000 ML INJ 1,000 ML IV SCH ×2 (14:00→19:00)
[2016-11-07 16:00] VITALS: BP 139/87; PULSE 124; RESP 12; TEMP 98
[2016-11-07] MEDS: ACETAMINOPHEN 325 MG TAB PO PRN (17:04)
[2016-11-07] MEDS: LORazepam 2 MG TAB PO PRN (19:11)
[2016-11-08] MEDS: diphenhydrAMINE HCL 50 MG/ML VIAL IM PRN (01:00)
[2016-11-08] MEDS: LORazepam 2 MG TAB PO SCH ×3 (02:00→08:14)
[2016-11-08] MEDS: DEXT 5%-NACL 0.9% 1000 ML INJ 1,000 ML IV SCH (05:00)
[2016-11-08] MEDS: PROPRANOLOL HCL 10 MG TAB PO SCH ×3 (06:00→21:00)
[2016-11-08 06:36] VITALS: BP 150/85; PULSE 131; RESP 24; O2SAT 95
[2016-11-08] MEDS: PARoxetine HCL 20 MG TAB PO SCH (08:14)
[2016-11-08] MEDS: ARIPiprazole 10 MG TAB PO SCH (08:14)
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
[2016-11-08] MEDS: ZIPRASIDONE MESYLATE 20 MG VIAL IM SCH ×2 (10:30→21:00)
[2016-11-08] MEDS: LORazepam 2 MG/ML VIAL IM SCH ×2 (10:30→21:00)
--- NOTE | 2016-11-08 10:46 | HHI.PYPN ---
Subjective Remarks Patient seen today for psychiatric reevaluation, patient is found very labile and confused, she is crying and stating that she feels very guilty "because I cannot take my medications", she also says that she is sad because people cannot help her. She continues to have a very flat affect, continues to be internally stimulated, with pronounced thought blocking, poverty of speech, disorganized behavior and thought. Patient has been writing persistently several sentences without meaning or structure. She seems to be more communicative, less stiff and more mobile. She has been poorly compliant with by mouth medications. Objective Alert: Yes [place]: Person, Place, Date Mood: Calm Affect: Flat Memory Intact: Immediate, Recent, Comment Hallucinations: Auditory (remains internally preoccupied) Delusions: No Delusion Type: Other (none elicited) Suicidal: Ideation (none voiced) Homicidal: Ideation (none voiced) Insight/Judgment Poor Vitals/IOs Vital Signs Date Time Temp Pulse Resp B/P Pulse Ox O2 Delivery O2 Flow Rate FiO2 11/08/16 06:36 131 24 150/85 95 11/07/16 16:00 98.0 Intake and Output 11/07/16 11/07/16 11/08/16 08:00 16:00 00:00 Intake Total 0 ml 120 ml 50 ml Output Total 500 ml Balance 0 ml 120 ml -450 ml Assessment & Plan Problem List: (1) Catatonia ICD Code: F06.1 (2) Unspecified psychosis Assessment & Plan: Patient continues to be acutely psychotic, compliant on and off with medications, refusing by mouth meds, continued to be perplexed, with significant negativism, blocking thought, confusion, refractory speech, internally stimulated, with disorganized thought and behavior, however in some way she is more communicative and talkative now. No stiffness, mannerisms, echopraxia noted today. Catatonia is definitely improved. Will order a brain CT scan today to rule out organic causes of psychosis and AMS. Will order a neurologic consult to evaluate potential neurological causes of psychosis and AMS including seizures, brain pathology, NMDA receptor encephalopathy, consider LP/abdominal sonogram Would discontinue Abilify due to poor adherence and refusal to take by mouth medications. We'll start Geodon 5 mg IM every 12 hours for psychosis, will taper down Ativan to 2 mg IM every 12. Will order CBC, CMP, TSH, T3, T4, CPK Extensive psychoeducation, supportive motivation provided. Continue to encourage the patient to ambulate in the unit and to participate in group therapy.. ICD Code: F29 Assessment & Plan Estimated LOS: days Justification for Cont. Inpt. Patient continues to be acutely psychotic, catatonic needs to continue psychiatric hospitalization for stabilization Request HC Surrog/Guard Advoc?: Yes Damian Marie MD November 08, 2016 10:45
[2016-11-08 11:11] LABS: AUTOMATED NEUTROPHIL # 5.4 TH/MM3 (1.8-7.7); BASOPHIL % 0.3 % (0.0-2.0); EOSINOPHIL # 0.1 TH/MM3 (0-0.4); EOSINOPHIL % 1.9 % (0.0-4.0); HEMATOCRIT 41.2 % (35.0-46.0); HEMO FLAGS DIFF FINAL; LYMPH % 15.9 % (9.0-44.0); LYMPHOCYTE # 1.1 TH/MM3 (1.0-4.8); MEAN CELL VOLUME 90.4 FL (80.0-100.0); MEAN CORPUSCULAR HEMOGLOBIN 30.7 PG (27.0-34.0); MONO % 5.4 % (0.0-8.0); NEUT % 76.5 % (16.0-70.0); PLATELET COUNT 276 TH/MM3 (150-450); RED BLOOD COUNT 4.56 MIL/MM3 (4.00-5.30); RED CELL DISTRIBUTION WIDTH 13.4 % (11.6-17.2); WHITE BLOOD COUNT 7.1 TH/MM3 (4.0-11.0)
[2016-11-08 11:39] LABS: BICARBONATE 25.3 MEQ/L (21.0-32.0); POTASSIUM 3.4 MEQ/L (3.5-5.1)
[2016-11-08 11:50] LABS: FREE T3 2.96 PG/ML (2.18-3.98); FREE T4 1.22 NG/DL (0.76-1.46)
[2016-11-08 11:57] LABS: BLOOD, URINE NEG (NEG); COMMENT (UR) CULT NOT INDICATED; CULTURE IF INDICATED CULT NOT INDICATED; GLUCOSE,URINE NEG (NEG); KETONE, URINE NEG (NEG); MUCUS URINE FEW /lpf (OCC); NITRITE,URINE NEG (NEG); PH, URINE 6.5 (5.0-8.5); SQUAMOUS EPITHELIAL CELL URINE 2 /hpf (0-5); URINE COLOR YELLOW (YELLW/STRAW)
[2016-11-08] MEDS ORDERED: POTASSIUM BICARBONATE 25 MEQ EFFERVESCENT TAB PO ONE (14:00)
--- NOTE | 2016-11-08 16:16 | MB ---
cc: [facility] DATE OF CONSULTATION: 11/08/2016 REASON FOR CONSULTATION: She is seen in neurological consultation. She has been in the hospital since October 28 when she was admitted for acute psychosis with some catatonic component. She has not responded well to the antipsychotic medications. PAST PSYCHIATRIC HISTORY: There is no history of psychiatric problems. Apparently no major medical problems before these. LABORATORY FINDINGS: The lab work is noted, normal CBC is a except for slightly increased neutrophils percentage. Chemistry includes normal Thyroid profile. CPK slightly elevated couple of days ago but normal yesterday. Basic chemistry with a minor abnormalities. RPR nonreactive and HIV was nonreactive. NEUROLOGIC EXAMINATION: The neurological exam shows the patient to be lying quietly with little motor activities. Upon stimulation, She rarely followed any request. She tried to verbalize and started saying something like 4 for her age. She did not seem to have any complaints. She established some eye contact with a glassy, staring looking appearance. Mild generalized bradykinesia. She was noted to move all four extremities equally. Reflexes 1-2+ including the ankles. Plantar responses flexor. She responds to visual threat. Pupils equal and reactive. I was unable to see the disks. The neck appears supple. ASSESSMENT: Subacute psychosis. PLAN: She is not responding well to antipsychotics as expected. I believe the possibility of any structural encephalitic process is a consideration, though unlikely. I will obtain an MRI brain and EEG studies. If these are negative then I will consider lumbar puncture for spinal fluid evaluation to include encephalitis related antibodies. I will follow the neurological course. Case discussed with Dr. Christina as he arrived at the time of my visit. The sitter was in the room at the time of my visit and I also spoke with one of the RN's on the floor. Thank you for asking us to assist in her care. I will follow her with you. MD LILY Marte/magan /2:45 PM /3:10 PM
--- NOTE | 2016-11-08 18:54 | RADRPT ---
EXAM DATE/TIME: 11/08/2016 18:15 [facility] COMPARISON: No previous studies available for comparison. INDICATIONS : Altered mental status. RADIATION DOSE: 46.16 CTDIvol (mGy) MEDICAL HISTORY : None SURGICAL HISTORY : None. ENCOUNTER: Initial ACUITY: 1 day PAIN SCALE: Non-responsive LOCATION: cranial TECHNIQUE: Multiple contiguous axial images were obtained of the head. Using automated exposure control and adj ustment of the mA and/or kV according to patient size, radiation dose was kept as low as reasonably a chievable to obtain optimal diagnostic quality images. FINDINGS: CEREBRUM: The ventricles are normal for age. No evidence of midline shift, mass lesion, hemorrhage or acute in farction. No extra-axial fluid collections are seen. POSTERIOR FOSSA: The cerebellum and brainstem are intact. The 4th ventricle is midline. The cerebellopontine angle i s unremarkable. EXTRACRANIAL: The visualized portion of the orbits is intact. SKULL: The calvaria is intact. No evidence of skull fracture. CONCLUSION: Normal examination. Ravi Ace MD on November 08, 2016 at 18:52 Board Certified Radiologist. This report was verified electronically.
[2016-11-08 18:55] VITALS: BP 124/85; PULSE 123; RESP 20; TEMP 98.3
[2016-11-09] MEDS: LORazepam 2 MG TAB PO PRN (03:14)
[2016-11-09 05:51] VITALS: BP 124/86; PULSE 109; RESP 20; TEMP 99.1; O2SAT 98
[2016-11-09] MEDS: PROPRANOLOL HCL 10 MG TAB PO SCH ×3 (06:00→21:44)
[2016-11-09] MEDS: ZIPRASIDONE MESYLATE 20 MG VIAL IM SCH ×2 (09:52→21:47)
[2016-11-09] MEDS: LORazepam 2 MG/ML VIAL IM SCH ×2 (09:53→21:42)
[2016-11-09 10:21] LABS: BICARBONATE 19.8 MEQ/L (21.0-32.0); POTASSIUM 4.2 MEQ/L (3.5-5.1)
--- NOTE | 2016-11-09 14:22 | RADRPT ---
EXAM DATE/TIME: 11/09/2016 13:26 [facility] COMPARISON: No previous studies available for comparison. INDICATIONS : Altered mental status. CONTRAST: 10 cc Omniscan (gadodiamide) IV MEDICAL HISTORY : None. SURGICAL HISTORY : None. ENCOUNTER: Subsequent ACUITY: 2 weeks PAIN SCORE: 0/10 LOCATION: cranial TECHNIQUE: Multiplanar, multisequence MRI of the brain was performed both prior to and following the administrat ion of paramagnetic contrast. FINDINGS: CEREBRUM: The ventricles are normal for age. No evidence of midline shift, mass lesion, hemorrhage or acute in farction. No extraaxial fluid collections are seen. The pituitary gland and suprasellar cistern are normal in configuration. WHITE MATTER: No significant signal abnormalities are seen in the white matter. POSTERIOR FOSSA: The cerebellum and brainstem are intact. The 4th ventricle is midline. The cerebellopontine angle is unremarkable. The cerebellar tonsils are normal in position. DIFFUSION IMAGING: No focal areas of restricted diffusion are seen. No evidence of acute infarction. EXTRACRANIAL: The visualized portions of the orbits is unremarkable. There is fluid opacification of the sphenoid s inus. POST-CONTRAST: No abnormal areas of parenchymal or dural enhancement. No evidence of blood-brain barrier breakdown. CONCLUSION: 1. Small amount of fluid within the sphenoid sinus. The examination is otherwise unremarkable. Bi Berg MD on November 09, 2016 at 14:18 Board Certified Radiologist. This report was verified electronically.
[2016-11-09] MEDS ORDERED: GADODIAMIDE PF 287 MG/ML 10 ML VIAL (for RAD MRI) IV ONE (14:51)
[2016-11-09 15:00] VITALS: BP 129/82; PULSE 121
[2016-11-09] MEDS: diphenhydrAMINE HCL 50 MG CAP PO PRN (15:01)
--- NOTE | 2016-11-09 15:58 | HHI.PYPN ---
Subjective Remarks Patient seen and examined. Chart reviewed. Case discussed with nursing staff. On my examination, patient is initially volitionally mute. She then says, "I am speaking in [place]. We are all divided in our own selection. I'm 20 and I get treated like I'm 3." No posturing or stereotypies noted. No reported side effects from medications. No physical complaints. Review of Systems ROS Limitations: Poor Historian Except as stated in HPI: all other systems reviewed are Neg Objective Alert: Yes [place]: Person, Place, Date Mood: Calm Affect: Flat Memory Intact: Comment (Not formally assessed) Hallucinations: Other (Int stim) Delusions: No Delusion Type: Other (No delusions) Suicidal: Ideation (No SI) Homicidal: Ideation (No HI) Insight/Judgment Poor Remarks No abnormal motor movements noted. Thought process disorganized. Speech rambling. Grooming and hygiene fair but only with staff assistance. Labs Test 11/09/16 08:15 Sodium Level 141 MEQ/L Potassium Level 4.2 MEQ/L Chloride Level 105 MEQ/L Carbon Dioxide Level 19.8 MEQ/L Anion Gap 16 MEQ/L Blood Urea Nitrogen 7 MG/DL Creatinine 0.63 MG/DL Estimat Glomerular Filtration 120 ML/MIN Rate Random Glucose 86 MG/DL Calcium Level 10.0 MG/DL Labs reviewed. Last Impressions Brain MRI 11/09/16 0000 Signed Impressions: Service Date/Time: Wednesday, November 09, 2016 13:26 - CONCLUSION: 1. Small amount of fluid within the sphenoid sinus. The examination is otherwise unremarkable. Bi Berg MD Head CT 11/08/16 0000 Signed Impressions: Service Date/Time: November 18:15 - CONCLUSION: Normal examination. Ravi Ace MD Lower Extremity Ultrasound 11/07/16 0000 Signed Impressions: Service Date/Time: Monday, November 07, 2016 10:57 - CONCLUSION: No evidence of deep venous thrombosis within the lower extremities. Philippe Menendez MD Vitals/IOs Vital Signs Date Time Temp Pulse Resp B/P Pulse Ox O2 Delivery O2 Flow Rate FiO2 11/09/16 15:00 121 129/82 11/09/16 05:51 99.1 20 98 Intake and Output 11/08/16 11/08/16 11/09/16 08:00 16:00 00:00 Intake Total 0 ml Balance 0 ml Assessment & Plan Problem List: (1) Catatonia ICD Code: F06.1 (2) Unspecified psychosis ICD Code: F29 Assessment & Plan I note Dr. Marie's medication adjustments: Geodon was recently added and Ativan IM was tapered to q12h. I will continue these meds as ordered for now. To consider titrating Geodon over weekend. Neuro consult noted and appreciated. Continue to monitor on inpatient unit. Continue other meds and care as ordered. Justification for Cont. Inpt. Impairment in reality construction. High risk for decompensation in a restrictive environment. Discharge Planning Pending psychiatric stabilization. Request HC Surrog/Guard Advoc?: Yes August Khan MD November 09, 2016 15:58
--- NOTE | 2016-11-09 17:53 | HHI.PR ---
Review/Management Daily Summary 11/09 she is doing a little better more participation on the exam and started making a phrase establishes eye contact no rigidity but bradykinesia mildly present MRI brain normal EEG results pending, if EEG looks benign, no further neuro intervention Subjective Subjective Comments No acute events reported Active Medications Current Medications Medications (Trade) Dose Ordered Sig/Tien Route Start Time Stop Time Status Last Admin (Milk Of Magnesia Liq) 30 ml Q6H PRN PO 10/28/16 15:00 (Benadryl) 50 mg Q6H PRN PO 10/29/16 17:00 11/09/16 15:01 (Benadryl Inj) 50 mg Q6H PRN IM 10/29/16 17:00 11/08/16 01:00 (Tylenol) 650 mg Q4H PRN PO 10/29/16 17:00 11/07/16 17:04 (Ativan) 2 mg Q6H PRN PO 10/31/16 17:00 11/09/16 03:14 (Zofran Inj) 4 mg Q8HR PRN IV PUSH 11/01/16 13:30 (Inderal) 10 mg Q8HR PO 11/03/16 14:00 11/09/16 15:01 (Ativan Inj) 1 mg Q12HR IM 11/08/16 10:30 11/09/16 09:53 (Geodon Inj) 5 mg Q12HR IM 11/08/16 10:30 11/09/16 09:52 Allergies Allergies Coded Allergies No Known Allergies (Unverified10/17/16) Exam I&O / VS 11/08/16 11/08/16 11/09/16 15:00 23:00 07:00 Intake Total 240 ml Balance 240 ml Intake Oral 240 ml # Voids 2 Vital Signs Date Time Temp Pulse Resp B/P Pulse Ox O2 Delivery O2 Flow Rate FiO2 11/09/16 15:00 121 129/82 11/09/16 05:51 99.1 109 20 124/86 98 11/08/16 18:55 98.3 123 20 124/85 Objective Radiology Results Last 48 hours Impressions Brain MRI 11/09/16 0000 Signed Impressions: Service Date/Time: Wednesday, November 09, 2016 13:26 - CONCLUSION: 1. Small amount of fluid within the sphenoid sinus. The examination is otherwise unremarkable. Bi Berg MD Head CT 11/08/16 0000 Signed Impressions: Service Date/Time: November 18:15 - CONCLUSION: Normal examination. Ravi Ace MD Micro and Labs Laboratory Tests Test 11/09/16 08:15 Sodium Level 141 Potassium Level 4.2 Chloride Level 105 Carbon Dioxide Level 19.8 Anion Gap 16 Blood Urea Nitrogen 7 Creatinine 0.63 Estimat Glomerular Filtration 120 Rate Random Glucose 86 Calcium Level 10.0 Nitesh Casas MD November 09, 2016 17:53
[2016-11-10 05:53] VITALS: BP 123/46; PULSE 107; RESP 18; TEMP 98.8; O2SAT 100
[2016-11-10] MEDS: PROPRANOLOL HCL 10 MG TAB PO SCH ×3 (06:11→20:36)
--- NOTE | 2016-11-10 07:41 | MG ---
cc: AMAN [facility]AMP Lab No:[id number] Date: 11/10/2016 Age: 21 Sex: F Race: Kori is a 21 year-old, anxiety, diarrhea, paranoia, Ativan, Geodon, diffuse alpha and beta rhythms are noted, some slowing down to 5 Hz is seen diffusely. No hemisphere asymmetries are noted. No epileptiform or seizure activity was seen. Photic stimulation was performed with some posterior driving bilaterally at most frequencies. Better seen on the left then the right, and hyperventilation was not performed. The patient had a shaking episode and hyperventilated and her body shook but that just correlated with some mild muscle and movement artifact. IMPRESSION: Normal EEG the shaking episode was not and electroencephalographic seizure. MD SHADIA Enrique/magan /7:29 AM /7:34 AM
[2016-11-10] MEDS: LORazepam 2 MG/ML VIAL IM SCH ×2 (08:50→20:36)
[2016-11-10] MEDS: ZIPRASIDONE MESYLATE 20 MG VIAL IM SCH ×2 (08:51→20:36)
[2016-11-10 11:11] LABS: BICARBONATE 26.8 MEQ/L (21.0-32.0)
--- NOTE | 2016-11-10 12:50 | HHI.PYPN ---
Subjective Remarks Patient was seen and case discussed with nursing. Patient remains flat and largely nonverbal during the interview. She is able to feed herself with slow methodical movements. Behaving well per her one-to-one. She is compliant with her medications. Poverty of thought possibly responding to internal stimuli Objective Alert: Yes [place]: Person, Place, Date Mood: Calm Affect: Flat Memory Intact: Comment (Not formally assessed) Hallucinations: Other (Int stim) Delusions: No Delusion Type: Other (No delusions) Suicidal: Ideation (No SI) Homicidal: Ideation (No HI) Insight/Judgment poor Labs Test 11/10/16 10:29 Sodium Level 139 MEQ/L Potassium Level 4.0 MEQ/L Chloride Level 103 MEQ/L Carbon Dioxide Level 26.8 MEQ/L Anion Gap 9 MEQ/L Blood Urea Nitrogen 10 MG/DL Creatinine 0.62 MG/DL Estimat Glomerular Filtration 123 ML/MIN Rate Random Glucose 109 MG/DL Calcium Level 10.1 MG/DL Vitals/IOs Vital Signs Date Time Temp Pulse Resp B/P Pulse Ox O2 Delivery O2 Flow Rate FiO2 11/10/16 05:53 98.8 107 18 123/46 100 Intake and Output 11/09/16 11/09/16 11/10/16 08:00 16:00 00:00 Intake Total 600 ml 120 ml 360 ml Balance 600 ml 120 ml 360 ml Assessment & Plan Problem List: (1) Catatonia ICD Code: F06.1 (2) Unspecified psychosis ICD Code: F29 Assessment & Plan Continue current treatment plan Justification for Cont. Inpt. Patient will decompensate in a less restrictive setting Request HC Surrog/Guard Advoc?: Yes Durga Goss DO November 10, 2016 12:50
--- NOTE | 2016-11-10 13:03 | HHI.PR ---
Subjective Remarks Follow up paranoid schizophrenia and tachycardia. Patient seen and examined today. Patient is awake and alert. Patient is speaking more today but few one or two word answers. Still with very flat affect and mostly nonverbal. Discussed with nursing staff encouraging her fluid intake. Apparently is feeding herself but only ate a few bites. Objective Vitals Vital Signs Date Time Temp Pulse Resp B/P Pulse Ox O2 Delivery O2 Flow Rate FiO2 11/10/16 05:53 98.8 107 18 123/46 100 11/09/16 15:00 121 129/82 I/O 11/09/16 11/09/16 11/09/16 11/10/16 11/10/16 11/10/16 07:00 15:00 23:00 07:00 15:00 23:00 Intake Total 240 ml 480 ml 360 ml 120 ml Balance 240 ml 480 ml 360 ml 120 ml Intake Oral 240 ml 480 ml 360 ml 120 ml # Voids 2 3 2 Result Diagram: 11/08/16 1054 11/10/16 1029 Objective Remarks GENERAL: Well-nourished, well-developed patient INAD. Awake. Sitting in chair in community room. SKIN: No rashes, ecchymoses or lesions. Warm and dry. HEAD: Atraumatic. Normocephalic. EOMI. CARDIOVASCULAR: Tachycardia without murmurs, gallops, or rubs. RESPIRATORY: CTA. Breath sounds equal bilaterally. No wheezes, rales, or rhonchi. GASTROINTESTINAL: Abdomen soft, nondistended. Bowel sounds hypoactive. Patient winces with palpation over her lower abdomen/suprapubic area. MUSCULOSKELETAL: Extremities without clubbing, cyanosis, or edema. Calves are supple bilaterally. NEUROLOGICAL: Awake and alert. No rigidity but slow bradykinetic movements noted. Verbalizing occasionally. Moves all extremities. Procedures No procedures completed within the past 24 hours. Medications and IVs Current Medications Medications (Trade) Dose Ordered Sig/Tien Route Start Time Stop Time Status Last Admin (Milk Of Magnleonid Liq) 30 ml Q6H PRN PO 10/28/16 15:00 (Benadryl) 50 mg Q6H PRN PO 10/29/16 17:00 11/09/16 15:01 (Benadryl Inj) 50 mg Q6H PRN IM 10/29/16 17:00 11/08/16 01:00 (Tylenol) 650 mg Q4H PRN PO 10/29/16 17:00 11/07/16 17:04 (Ativan) 2 mg Q6H PRN PO 10/31/16 17:00 11/09/16 03:14 (Zofran Inj) 4 mg Q8HR PRN IV PUSH 11/01/16 13:30 (Inderal) 10 mg Q8HR PO 11/03/16 14:00 11/10/16 06:11 (Ativan Inj) 1 mg Q12HR IM 11/08/16 10:30 11/10/16 08:50 (Geodon Inj) 5 mg Q12HR IM 11/08/16 10:30 11/10/16 08:51 A/P Problem List: (1) Schizophrenia, paranoid type ICD Code: F20.0 Status: Acute (2) Unspecified psychosis ICD Code: F29 Status: Acute (3) Tachycardia ICD Code: R00.0 Status: Acute (4) Hypokalemia ICD Code: E87.6 Status: Acute Assessment and Plan Patient is a 21-year-old white female with no known primary medical history who came in to the hospital from [facility] under [place] La [place] act secondary to being belligerent at home, acting out raking things and making suicidal statements. As per record, questionable smoking K2 as per nursing staff at [facility]. The patient also refused to give urine specimen for test. 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 Patient is now admitted to inpatient psychiatry unit for further evaluation. Consulted for medical management, tachycardia. Psychosis, paranoid schizophrenia - Management by psychiatry team - CT scan and neurology consult requested by primary team - r/o organic cause of AMS ? - CT scan normal - seen in consultation by Neurology - MRI brain normal, EEG normal. Tachycardia - Most likely related to paranoia and anxiety, improved with scheduled Propranolol - elevated HR may be due in part to dehydration given poor po intake, encourage fluids/increased po intake - TSH WNL - normal white count, afebrile - continue to monitor HR Possible neuroleptic malignant syndrome, with positive muscle rigidity, elevated total creatine kinase and CK, tachycardia, tremors, and catatonia. - Total creatinine kinase, 1453-->360 --> 103 - Discussed with Dr. Marie - likely not NMS. - No appreciable muscle rigidity or tremors noted. - Monitor closely. Hypokalemia - resolved BLE pain/discomfort - Bilateral US to r/o DVT negative DVT prophylaxis: encourage ambulation. Discussed with Dr. Salas, nursing staff and patient Carol Holder November 10, 2016 13:03
[2016-11-10] MEDS: ACETAMINOPHEN 325 MG TAB PO PRN (16:30)
[2016-11-10] MEDS: LORazepam 2 MG TAB PO PRN (17:10)
[2016-11-10] MEDS: diphenhydrAMINE HCL 50 MG/ML VIAL IM PRN (17:18)
[2016-11-10 18:00] VITALS: BP 131/102; PULSE 129; RESP 18; TEMP 99.7; O2SAT 99
[2016-11-11] MEDS: LORazepam 2 MG TAB PO PRN ×2 (01:47→17:34)
[2016-11-11] MEDS: PROPRANOLOL HCL 10 MG TAB PO SCH (06:00)
[2016-11-11 06:40] VITALS: BP 135/83; PULSE 126; RESP 18; TEMP 98.2; O2SAT 99
[2016-11-11] MEDS: LORazepam 2 MG/ML VIAL IM SCH ×2 (09:13→21:00)
[2016-11-11] MEDS: ZIPRASIDONE MESYLATE 20 MG VIAL IM SCH ×2 (09:13→21:00)
--- NOTE | 2016-11-11 10:08 | HHI.PYPN ---
Subjective Remarks Patient was seen and case discussed with nursing. Patient remains catatonic and flat. She is responding to her name and is able to state her name. She has her hands in her ears, possibly blocking of the voices she is hearing. She remains tachycardic, fluid intake is low. Objective Alert: Yes [place]: Person Mood: Calm Affect: Flat Memory Intact: Comment (Not formally assessed) Hallucinations: Other (Int stim) Delusions: No Delusion Type: Other (unable to assess) Suicidal: Ideation (unable to assess) Homicidal: Ideation (unable to assess) Insight/Judgment Poor Labs Test 11/10/16 10:29 Sodium Level 139 MEQ/L Potassium Level 4.0 MEQ/L Chloride Level 103 MEQ/L Carbon Dioxide Level 26.8 MEQ/L Anion Gap 9 MEQ/L Blood Urea Nitrogen 10 MG/DL Creatinine 0.62 MG/DL Estimat Glomerular Filtration 123 ML/MIN Rate Random Glucose 109 MG/DL Calcium Level 10.1 MG/DL Vitals/IOs Vital Signs Date Time Temp Pulse Resp B/P Pulse Ox O2 Delivery O2 Flow Rate FiO2 11/11/16 06:40 98.2 126 18 135/83 99 Intake and Output 11/10/16 11/10/16 11/11/16 08:00 16:00 00:00 Intake Total 120 ml 1080 ml Balance 120 ml 1080 ml Assessment & Plan Problem List: (1) Catatonia ICD Code: F06.1 (2) Unspecified psychosis ICD Code: F29 Assessment & Plan There is no one-to-one available at this time because of staffing issues. Charge nurse is made aware and has to get staff. Continue with medical treatment as indicated. Consider transfer to medical floor if patient continues with poor hydration. ck ordered. Justification for Cont. Inpt. There is no one-to-one available at this time because of staffing issues. Request HC Surrog/Guard Advoc?: Yes Durga Goss DO November 11, 2016 10:07
[2016-11-11] MEDS: PROPRANOLOL HCL 20 MG TAB PO SCH ×2 (14:04→22:54)
--- NOTE | 2016-11-11 15:22 | HHI.PR ---
Subjective Remarks Follow up paranoid schizophrenia and tachycardia. Patient seen and examined today. Patient is awake but continues to be with slow movements and responses. Flat affect, minimal verbalization. As per nursing, patient continues to not eat and drink adequately. States patient likes to drink ensure shakes. Otherwise appears comfortable. Objective Vitals Vital Signs Date Time Temp Pulse Resp B/P Pulse Ox O2 Delivery O2 Flow Rate FiO2 11/11/16 06:40 98.2 126 18 135/83 99 11/10/16 18:00 99.7 129 18 131/102 99 I/O 11/10/16 11/10/16 11/10/16 11/11/16 11/11/16 11/11/16 07:00 15:00 23:00 07:00 15:00 23:00 Intake Total 120 ml 1080 ml 240 ml Balance 120 ml 1080 ml 240 ml Intake Oral 120 ml 1080 ml 240 ml # Voids 2 2 Result Diagram: 11/08/16 1054 11/10/16 1029 Imaging Last Impressions Brain MRI 11/09/16 0000 Signed Impressions: Service Date/Time: Wednesday, November 09, 2016 13:26 - CONCLUSION: 1. Small amount of fluid within the sphenoid sinus. The examination is otherwise unremarkable. Bi Berg MD Head CT 11/08/16 0000 Signed Impressions: Service Date/Time: November 18:15 - CONCLUSION: Normal examination. Ravi Ace MD Lower Extremity Ultrasound 11/07/16 0000 Signed Impressions: Service Date/Time: Monday, November 07, 2016 10:57 - CONCLUSION: No evidence of deep venous thrombosis within the lower extremities. Philippe Menendez MD Objective Remarks GENERAL: Well-nourished, well-developed patient NAD. Awake. Sitting in chair in community room. SKIN: No rashes, ecchymoses or lesions. Warm and dry. HEAD: Atraumatic. Normocephalic. EOMI. CARDIOVASCULAR: Tachycardia without murmurs, gallops, or rubs. RESPIRATORY: CTA. Breath sounds equal bilaterally. No wheezes, rales, or rhonchi. GASTROINTESTINAL: Abdomen soft, nondistended. Bowel sounds hypoactive. MUSCULOSKELETAL: Extremities without clubbing, cyanosis, or edema. NEUROLOGICAL: Awake and alert. No rigidity but slow bradykinetic movements noted. Minimal verbalization. Moves all extremities. Procedures No procedures completed within the past 24 hours. A/P Problem List: (1) Schizophrenia, paranoid type ICD Code: F20.0 Status: Acute (2) Unspecified psychosis ICD Code: F29 Status: Acute (3) Tachycardia ICD Code: R00.0 Status: Acute (4) Hypokalemia ICD Code: E87.6 Status: Acute Assessment and Plan Patient is a 21-year-old white female with no known primary medical history who came in to the hospital from [facility] under [place] act secondary to being belligerent at home, acting out raking things and making suicidal statements. As per record, questionable smoking K2 as per nursing staff at [facility]. The patient also refused to give urine specimen for test. 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 Patient is now admitted to inpatient psychiatry unit for further evaluation. Consulted for medical management, tachycardia. Psychosis, paranoid schizophrenia - Management by psychiatry team - CT scan and neurology consult requested by primary team - r/o organic cause of AMS ? - CT scan normal - seen in consultation by Neurology - MRI brain normal, EEG normal. Tachycardia - Most likely related to paranoia and anxiety,increase Propranolol 20mg Q8hrs - elevated HR may be due in part to dehydration given poor po intake, encourage fluids/increased po intake. We'll give ensure shakes. - TSH WNL - normal white count, afebrile - continue to monitor HR Poor by mouth intake - Continue to encourage by mouth fluid intake - Start ensure shakes Possible neuroleptic malignant syndrome, with positive muscle rigidity, elevated total creatine kinase and CK, tachycardia, and catatonia. - Total creatinine kinase, 1453-->360 --> 103 --> 372, needs hydration - Discussed with Dr. Marie - likely not NMS. - No appreciable muscle rigidity or tremors noted. - Monitor closely. Hypokalemia - resolved BLE pain/discomfort - Bilateral US to r/o DVT negative DVT prophylaxis: encourage ambulation. Discussed with patient, nursing Mary Juares November 11, 2016 15:22
[2016-11-11] MEDS: ACETAMINOPHEN 325 MG TAB PO PRN (18:07)
[2016-11-11 18:22] VITALS: BP 150/88; PULSE 119; RESP 18; TEMP 98.1
[2016-11-12] MEDS: PROPRANOLOL HCL 20 MG TAB PO SCH ×3 (05:37→22:00)
[2016-11-12 06:00] VITALS: BP 116/68; PULSE 104; RESP 17; TEMP 97.9; O2SAT 98
[2016-11-12] MEDS: LORazepam 2 MG/ML VIAL IM SCH ×2 (09:47→21:00)
[2016-11-12] MEDS: ZIPRASIDONE MESYLATE 20 MG VIAL IM SCH (09:49)
--- NOTE | 2016-11-12 12:33 | HHI.PYPN ---
Subjective Remarks Patient seen and examined. Chart reviewed. Case discussed with nursing staff. Patient is reportedly eating somewhat better with assistance. Patient has a sitter. On my examination today, the patient presents as anxious and fretful. Thought blocking present. Some purposeless movements noted. Remains somewhat internally stimulated. No SI or HI. No side effects from medications. Review of Systems ROS Limitations: Psychotic, Poor Historian Except as stated in HPI: all other systems reviewed are Neg Objective Alert: Yes [place]: Person Mood: Anxious Affect: Flat Memory Intact: Comment (Not formally assessed) Hallucinations: Other (remains internally stimulated) Delusions: Yes Delusion Type: Paranoid Suicidal: Ideation (no SI) Homicidal: Ideation (no HI) Insight/Judgment Poor Remarks Significant thought blocking. Speech halting. Grooming and hygiene fair with assist. Labs Test 11/11/16 12:42 Total Creatine Kinase 372 U/L Creatine Kinase MB 3.0 NG/ML Creatine Kinase MB % 0.8 % Labs reviewed. EEG draft read normal. Last Impressions Brain MRI 11/09/16 0000 Signed Impressions: Service Date/Time: Wednesday, November 09, 2016 13:26 - CONCLUSION: 1. Small amount of fluid within the sphenoid sinus. The examination is otherwise unremarkable. Bi Berg MD Vitals/IOs Vital Signs Date Time Temp Pulse Resp B/P Pulse Ox O2 Delivery O2 Flow Rate FiO2 11/12/16 06:00 97.9 104 17 116/68 98 Intake and Output 11/11/16 11/11/16 11/11/16 07:59 15:59 23:59 Intake Total 600 ml 420 ml Balance 600 ml 420 ml Assessment & Plan Problem List: (1) Catatonia ICD Code: F06.1 (2) Unspecified psychosis ICD Code: F29 Assessment & Plan Oral intake improved but remains tenuous. I will add back a PO Geodon option but leave the IM backup if pt refuses PO. Continue scheduled Ativan; to consider retitrating. Given high risk for medical compromise in light of ongoing catatonia, patient would likely be better served on med psych unit, which is reopening today. Will transfer to med psych once opened; case d/w Dr. Marie. Check CK/BMP. Hospitalist and neurologist input noted and appreciated. Continue other medications and care as ordered. Justification for Cont. Inpt. Impairment in self-care. Impairment in reality construction. Medication changes. High risk for decompensation in a restrictive environment. Discharge Planning Pending psychiatric stabilization. Request HC Surrog/Guard Advoc?: Yes August Khan MD November 12, 2016 12:33
[2016-11-12] MEDS ORDERED: SODIUM CHLORIDE FLUSH PRN IV FLUSH (14:15)
[2016-11-12] MEDS ORDERED: SODIUM CHLOR 0.9% 1000 ML INJ 1,000 ML IV SCH (15:00)
[2016-11-12] MEDS ORDERED: ZIPRASIDONE MESYLATE 20 MG VIAL IM PRN (18:00)
[2016-11-12] MEDS: ZIPRASIDONE HCL 40 MG CAP PO SCH (18:32)
[2016-11-12 18:58] VITALS: BP 117/76; PULSE 113; RESP 18; TEMP 98.8
[2016-11-12 20:06] VITALS: BP 108/64; PULSE 101; TEMP 97.7
[2016-11-13] MEDS: diphenhydrAMINE HCL 50 MG/ML VIAL IM PRN (05:20)
[2016-11-13] MEDS: LORazepam 2 MG TAB PO PRN (06:00)
[2016-11-13] MEDS: PROPRANOLOL HCL 20 MG TAB PO SCH ×3 (06:00→22:00)
[2016-11-13 06:21] VITALS: BP 123/75; PULSE 112; RESP 18; TEMP 97.6; O2SAT 98
[2016-11-13 06:30] LABS: BICARBONATE 28.5 MEQ/L (21.0-32.0); POTASSIUM 3.7 MEQ/L (3.5-5.1)
[2016-11-13] MEDS: ZIPRASIDONE HCL 40 MG CAP PO SCH ×2 (10:17→18:00)
[2016-11-13] MEDS: LORazepam 2 MG/ML VIAL IM SCH ×3 (10:17→22:00)
--- NOTE | 2016-11-13 10:44 | HHI.PR ---
Subjective Remarks Follow up paranoid schizophrenia and tachycardia. Patient seen and examined today. Patient is awake. She is nonverbal. Slow movements, flat affect. As per nursing, IV fluids and restarted since yesterday when it was ordered. Patient continues to not eat and drink adequately even with assistance at times patient would refuse. Appears comfortable. Objective Vitals Vital Signs Date Time Temp Pulse Resp B/P Pulse Ox O2 Delivery O2 Flow Rate FiO2 11/13/16 06:21 97.6 112 18 123/75 98 11/12/16 20:06 97.7 101 108/64 11/12/16 18:58 98.8 113 18 117/76 I/O 11/12/16 11/12/16 11/12/16 11/13/16 11/13/16 11/13/16 07:00 15:00 23:00 07:00 15:00 23:00 Intake Total 360 ml 240 ml 340 ml 355 ml Balance 360 ml 240 ml 340 ml 355 ml Intake Oral 360 ml 240 ml 340 ml 355 ml # Voids 1 0 2 # Bowel Movements 0 Result Diagram: 11/13/16 0535 Imaging Last Impressions Brain MRI 11/09/16 0000 Signed Impressions: Service Date/Time: Wednesday, November 09, 2016 13:26 - CONCLUSION: 1. Small amount of fluid within the sphenoid sinus. The examination is otherwise unremarkable. Bi Berg MD Head CT 11/08/16 0000 Signed Impressions: Service Date/Time: November 18:15 - CONCLUSION: Normal examination. Ravi Ace MD Lower Extremity Ultrasound 11/07/16 0000 Signed Impressions: Service Date/Time: Monday, November 07, 2016 10:57 - CONCLUSION: No evidence of deep venous thrombosis within the lower extremities. Philippe Menendez MD Objective Remarks GENERAL: Well-nourished, well-developed patient NAD. Awake. Sitting in chair in community room. SKIN: No rashes, ecchymoses or lesions. Warm and dry. HEAD: Atraumatic. Normocephalic. EOMI. CARDIOVASCULAR: Tachycardia without murmurs, gallops, or rubs. RESPIRATORY: CTA. Breath sounds equal bilaterally. No wheezes, rales, or rhonchi. GASTROINTESTINAL: Abdomen soft, nondistended. Bowel sounds hypoactive. MUSCULOSKELETAL: Extremities without clubbing, cyanosis, or edema. NEUROLOGICAL: Awake and alert. No rigidity but slow bradykinetic movements noted. NO verbalization. Moves all extremities. Procedures No procedures completed within the past 24 hours. A/P Problem List: (1) Schizophrenia, paranoid type ICD Code: F20.0 Status: Acute (2) Unspecified psychosis ICD Code: F29 Status: Acute (3) Tachycardia ICD Code: R00.0 Status: Acute (4) Hypokalemia ICD Code: E87.6 Status: Acute Assessment and Plan Patient is a 21-year-old white female with no known primary medical history who came in to the hospital from [facility] under De La Torre act secondary to being belligerent at home, acting out raking things and making suicidal statements. As per record, questionable smoking K2 as per nursing staff at [facility]. The patient also refused to give urine specimen for test. 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 Patient is now admitted to inpatient psychiatry unit for further evaluation. Consulted for medical management, tachycardia. Psychosis, paranoid schizophrenia - Management by psychiatry team - CT scan and neurology consult requested by primary team - r/o organic cause of AMS ? - CT scan normal - seen in consultation by Neurology - MRI brain normal, EEG normal. q - Appears to be exhibiting catatonia with minimal movement and no verbalization. Might be a candidate for ECT. Tachycardia - Most likely related to paranoia and anxiety,increase Propranolol 20mg Q8hrs - elevated HR may be due in part to dehydration given poor po intake, encourage fluids/increased po intake. Ensure shakes. - TSH WNL - normal white count, afebrile - continue to monitor HR - IV fluids Poor by mouth intake - Continue to encourage by mouth fluid intake - Ensure shakes - Started on IV fluids - If patient continues to have poor by mouth intake, and unable to manage with catatonia and paranoid schizophrenia, consider PEG placement. Possible neuroleptic malignant syndrome, with positive muscle rigidity, elevated total creatine kinase and CK, tachycardia, and catatonia. - Total creatinine kinase, 1453-->360 --> 103 --> 372, needs hydration. IV fluids started CK has improved 162 - Discussed with Dr. Frank - likely not NMS. - No appreciable muscle rigidity or tremors noted. - Monitor closely. Hypokalemia - resolved BLE pain/discomfort - Bilateral US to r/o DVT negative DVT prophylaxis: encourage ambulation. Discussed with patient, nursing Mary Juares November 13, 2016 10:44 am
--- NOTE | 2016-11-13 13:12 | HHI.PYPN ---
Subjective Remarks Patient was seen today for psychiatric reevaluation, patient was found sitting in her chair, poorly cooperative, with pronounced negativism, blocking thought, flat affect, poverty of speech and echopraxia. As per nurses patient had moments of lucidity and hyperactivity, in which she even dances and has some emotional incontinence, but minutes later returns to catatonic state. Patient has been compliant on and off with by mouth medications, needing most of the time IM medications. Review of Systems Other No somatic complaints Objective Alert: Yes [place]: Person Mood: Oppositional Affect: Flat Memory Intact: Comment (Not formally assessed) Hallucinations: Other (remains internally stimulated) Delusions: Yes Delusion Type: Paranoid Suicidal: Ideation (no SI) Homicidal: Ideation (no HI) Insight/Judgment Poor Labs Test 11/13/16 05:35 Sodium Level 141 MEQ/L Potassium Level 3.7 MEQ/L Chloride Level 104 MEQ/L Carbon Dioxide Level 28.5 MEQ/L Anion Gap 9 MEQ/L Blood Urea Nitrogen 10 MG/DL Creatinine 0.60 MG/DL Estimat Glomerular Filtration 127 ML/MIN Rate Random Glucose 97 MG/DL Calcium Level 9.4 MG/DL Total Creatine Kinase 162 U/L Vitals/IOs Vital Signs Date Time Temp Pulse Resp B/P Pulse Ox O2 Delivery O2 Flow Rate FiO2 11/13/16 06:21 97.6 112 18 123/75 98 Intake and Output 11/12/16 11/12/16 11/13/16 08:00 16:00 00:00 Intake Total 120 ml 240 ml 340 ml Balance 120 ml 240 ml 340 ml Assessment & Plan Problem List: (1) Catatonia Assessment & Plan: We will increase Ativan to 2 mg 3 times a day for catatonia. Continue current dose of the psychotics. Will ask neurology to consider LP to rule out paraneoplastic encephalopathy. ICD Code: F06.1 (2) Unspecified psychosis ICD Code: F29 Assessment & Plan Estimated LOS: days Justification for Cont. Inpt. Patient continues to be catatonic, psychotic, needs to continue psychiatric hospitalization for safety and stabilization Request HC Surrog/Guard Advoc?: Yes Damian Marie MD November 13, 2016 13:12
[2016-11-13 18:42] VITALS: BP 126/86; PULSE 131; RESP 18; TEMP 98.7; O2SAT 98
--- NOTE | 2016-11-13 19:18 | HHI.PR ---
Review/Management Diagnosis/Plan: (1) Brief psychotic disorder Plan: mri brain nml eeg nml, no sz activity recs check esr/crp,nh3 level can consider paraneoplastic w/u, ct chest/abd/pelvis but will defer to Dr. 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 Casas Active Medications Current Medications Medications (Trade) Dose Ordered Sig/Tien Route Start Time Stop Time Status Last Admin (Milk Of Wendi Liq) 30 ml Q6H PRN PO 10/28/16 15:00 (Benadryl) 50 mg Q6H PRN PO 10/29/16 17:00 11/09/16 15:01 (Benadryl Inj) 50 mg Q6H PRN IM 10/29/16 17:00 11/13/16 05:20 (Tylenol) 650 mg Q4H PRN PO 10/29/16 17:00 11/11/16 18:07 (Ativan) 2 mg Q6H PRN PO 10/31/16 17:00 11/13/16 06:00 (Zofran Inj) 4 mg Q8HR PRN IV PUSH 11/01/16 13:30 (Inderal) 20 mg Q8HR PO 11/11/16 14:00 11/12/16 13:18 (NS Flush) 2 ml UNSCH PRN IV FLUSH 11/12/16 14:15 (Geodon Inj) 10 mg BIDPC PRN IM 11/12/16 18:00 (Geodon) 40 mg BIDPC PO 11/12/16 18:00 11/13/16 18:00 (Ativan Inj) 2 mg Q8HR IM 11/13/16 14:00 11/13/16 14:56 Allergies Allergies Coded Allergies No Known Allergies (Unverified10/17/16) Review of Systems All other ROS: ROS reviewed as documented in chart Exam I&O / VS 11/12/16 11/12/16 11/13/16 15:00 23:00 07:00 Intake Total 240 ml 340 ml 355 ml Balance 240 ml 340 ml 355 ml Intake Oral 240 ml 340 ml 355 ml # Voids 0 2 # Bowel Movements 0 Vital Signs Date Time Temp Pulse Resp B/P Pulse Ox O2 Delivery O2 Flow Rate FiO2 11/13/16 18:42 98.7 131 18 126/86 98 11/13/16 06:21 97.6 112 18 123/75 98 11/12/16 20:06 97.7 101 108/64 Neurologic: Alert Exam Comments sitting in chair tracks, non-verbal, follows simple request, mimics, bradykinetic, eomi, ou 3-2mm, no abnormal movements noted, herrera to gravity, mild increased tone in ue, msr 1+, no clonus, planter flexor Objective Micro and Labs Laboratory Tests Test 11/13/16 05:35 Sodium Level 141 Potassium Level 3.7 Chloride Level 104 Carbon Dioxide Level 28.5 Anion Gap 9 Blood Urea Nitrogen 10 Creatinine 0.60 Estimat Glomerular Filtration 127 Rate Random Glucose 97 Calcium Level 9.4 Total Creatine Kinase 162 Andrew Davenport MD November 13, 2016 19:18
[2016-11-14] MEDS: LORazepam 2 MG TAB PO PRN (02:32)
[2016-11-14] MEDS: LORazepam 2 MG/ML VIAL IM SCH ×3 (06:00→19:57)
[2016-11-14] MEDS: PROPRANOLOL HCL 20 MG TAB PO SCH ×3 (06:00→21:03)
[2016-11-14 06:44] VITALS: BP 104/69; PULSE 104; RESP 18; O2SAT 97
[2016-11-14] MEDS: ZIPRASIDONE HCL 40 MG CAP PO SCH ×2 (09:00→17:53)
[2016-11-14] MEDS: ZIPRASIDONE MESYLATE 20 MG VIAL IM PRN (09:55)
--- NOTE | 2016-11-14 12:51 | HHI.PR ---
Subjective Remarks Follow up paranoid schizophrenia and tachycardia. Patient seen and examined today. Patient is awake. Nonverbal. Bradykinesia, flat affect. As per nursing staff, patient very minimal hydration and nutrition. Patient appears to be very anxious but able to follow commands. Objective Vitals Vital Signs Date Time Temp Pulse Resp B/P Pulse Ox O2 Delivery O2 Flow Rate FiO2 11/14/16 06:44 104 18 104/69 97 11/13/16 18:42 98.7 131 18 126/86 98 I/O 11/13/16 11/13/16 11/13/16 11/14/16 11/14/16 11/14/16 06:59 14:59 22:59 06:59 14:59 22:59 Intake Total 355 ml 250 ml 1320 ml Balance 355 ml 250 ml 1320 ml Intake Oral 355 ml 250 ml 1320 ml # Voids 2 6 Result Diagram: 11/13/16 0535 Objective Remarks GENERAL: Well-nourished, well-developed patient NAD. Awake. SKIN: No rashes, ecchymoses or lesions. Warm and dry. HEAD: Atraumatic. Normocephalic. EOMI. CARDIOVASCULAR: Tachycardia without murmurs, gallops, or rubs. RESPIRATORY: CTA. Breath sounds equal bilaterally. No wheezes, rales, or rhonchi. GASTROINTESTINAL: Abdomen soft, nondistended. Bowel sounds hypoactive. MUSCULOSKELETAL: Extremities without clubbing, cyanosis, or edema. NEUROLOGICAL: Awake and alert. No rigidity but slow bradykinetic movements noted. NO verbalization. Moves all extremities. Procedures No procedures completed within the past 24 hours. A/P Problem List: (1) Schizophrenia, paranoid type ICD Code: F20.0 Status: Acute (2) Unspecified psychosis ICD Code: F29 Status: Acute (3) Tachycardia ICD Code: R00.0 Status: Acute (4) Hypokalemia ICD Code: E87.6 Status: Acute Assessment and Plan Patient is a 21-year-old white female with no known primary medical history who came in to the hospital from [facility] under De La Torre act secondary to being belligerent at home, acting out raking things and making suicidal statements. As per record, questionable smoking K2 as per nursing staff at [facility]. The patient also refused to give urine specimen for test. 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 Patient is now admitted to inpatient psychiatry unit for further evaluation. Consulted for medical management, tachycardia. Psychosis, paranoid schizophrenia - Management by psychiatry team - CT scan and neurology consult requested by primary team - r/o organic cause of AMS ? - CT scan normal - seen in consultation by Neurology - MRI brain normal, EEG normal. Plan for LP. Follow-up results - ESR and CRP within normal, RPR and HIV within normal. - Appears to be exhibiting catatonia with minimal movement and no verbalization. Might be a candidate for ECT. Tachycardia - Most likely related to paranoia and anxiety,increase Propranolol 20mg Q8hrs - elevated HR may be due in part to dehydration given poor po intake, encourage fluids/increased po intake. Ensure shakes. - TSH WNL - normal white count, afebrile - continue to monitor HR - IV fluids NS 75ml/hr Poor by mouth intake - Continue to encourage by mouth fluid intake - Ensure shakes - Started on IV fluids - If patient continues to have poor by mouth intake, and unable to manage with catatonia and paranoid schizophrenia, consider PEG placement. Possible neuroleptic malignant syndrome, with positive muscle rigidity, elevated total creatine kinase and CK, tachycardia, and catatonia. - Total creatinine kinase, 1453-->360 --> 103 --> 372, needs hydration. IV fluids CK has improved 162 - Discussed with Dr. Marie - likely not NMS. - No appreciable muscle rigidity or tremors noted. - Monitor closely. Hypokalemia - resolved BLE pain/discomfort - Bilateral US to r/o DVT negative DVT prophylaxis: encourage ambulation. Discussed with patient, nursing, DrMary Pryor November 14, 2016 12:51 Norah Baldwin MD November 14, 2016 14:42
[2016-11-14 14:15] VITALS: BP 122/88; PULSE 120; RESP 20; TEMP 98.1; O2SAT 99
--- NOTE | 2016-11-14 14:46 | HHI.PYPN ---
Subjective Remarks Patient was seen today for psychiatric evaluation, patient seems to be catatonic , poorly responsive, with pronounced blocking thought, poverty of speech, flat affect. She also seems to be internally stimulated, probably hearing voices. Review of Systems Other No somatic complaints Objective Alert: Yes [place]: Person Mood: Oppositional Affect: Flat Memory Intact: Comment (Not formally assessed) Hallucinations: Other (remains internally stimulated) Delusions: Yes Delusion Type: Paranoid Suicidal: Ideation (no SI) Homicidal: Ideation (no HI) Insight/Judgment Poor Labs Test 11/14/16 07:40 Erythrocyte Sedimentation Rate 5 mm/hr Ammonia 31 MCMOL/L C-Reactive Protein LESS THAN 0.29 MG/DL Vitals/IOs Vital Signs Date Time Temp Pulse Resp B/P Pulse Ox O2 Delivery O2 Flow Rate FiO2 11/14/16 14:15 98.1 120 20 122/88 99 Intake and Output 11/13/16 11/13/16 11/14/16 08:00 16:00 00:00 Intake Total 355 ml 490 ml Balance 355 ml 490 ml Assessment & Plan Problem List: (1) Catatonia Assessment & Plan: Will increase Geodon to 20 mg IM twice a day also we'll increase Ativan to 2 mg IM 4 times per day for catatonia. Will arrange meeting with family to suggest the possibility of ECT due to the lack of response ICD Code: F06.1 (2) Unspecified psychosis ICD Code: F29 Assessment & Plan Estimated LOS: days Justification for Cont. Inpt. Patient continues to be acutely psychotic/catatonic, minimally responsive, is to continue psychiatric hospitalization for safety and stabilization Request HC Surrog/Guard Advoc?: Yes Damian Marie MD November 14, 2016 14:46
[2016-11-14] MEDS: SODIUM CHLOR 0.9% 1000 ML INJ 1,000 ML IV SCH (15:45)
[2016-11-14 19:37] VITALS: BP 125/75; PULSE 105; RESP 18; TEMP 98.1; O2SAT 98
--- NOTE | 2016-11-14 20:55 | HHI.PR ---
Review/Management Diagnosis/Plan: (1) Brief psychotic disorder Plan: mri brain nml eeg nml, no sz activity recs check esr/crp,nh3 level can consider paraneoplastic w/u, ct chest/abd/pelvis but will defer to Dr. 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 (3) Tachycardia Daily Summary 11/14 remains minimally participant, nonverbal subacute psychosis, Specific cause will order ct chest and abdomen as well as CSF data searching for paraneoplastic autoimmune limbic encephalitis Subjective Subjective Comments No acute events reported Active Medications Current Medications Medications (Trade) Dose Ordered Sig/Tien Route Start Time Stop Time Status Last Admin (Milk Of Magnleonid Liq) 30 ml Q6H PRN PO 10/28/16 15:00 (Benadryl) 50 mg Q6H PRN PO 10/29/16 17:00 11/09/16 15:01 (Benadryl Inj) 50 mg Q6H PRN IM 10/29/16 17:00 11/13/16 05:20 (Tylenol) 650 mg Q4H PRN PO 10/29/16 17:00 11/11/16 18:07 (Ativan) 2 mg Q6H PRN PO 10/31/16 17:00 11/14/16 02:32 (Zofran Inj) 4 mg Q8HR PRN IV PUSH 11/01/16 13:30 (Inderal) 20 mg Q8HR PO 11/11/16 14:00 11/14/16 14:20 (NS Flush) 2 ml UNSCH PRN IV FLUSH 11/12/16 14:15 (Geodon) 40 mg BIDPC PO 11/12/16 18:00 11/14/16 17:53 (Geodon Inj) 20 mg BIDPC PRN IM 11/14/16 09:15 11/14/16 09:55 Lorazepam 2 mg 2 mg Q6H IM 11/14/16 20:00 11/14/16 19:57 (NS 1000 ml Inj) 1,000 ml @ 75 mls/hr [id number] IV 11/14/16 15:45 11/14/16 15:45 Allergies Allergies Coded Allergies No Known Allergies (Unverified10/17/16) Review of Systems All other ROS: ROS reviewed as documented in chart Exam I&O / VS 11/13/16 11/13/16 11/14/16 15:00 23:00 07:00 Intake Total 250 ml 1320 ml Balance 250 ml 1320 ml Intake Oral 250 ml 1320 ml # Voids 6 Vital Signs Date Time Temp Pulse Resp B/P Pulse Ox O2 Delivery O2 Flow Rate FiO2 11/14/16 19:37 98.1 105 18 125/75 98 11/14/16 14:15 98.1 120 20 122/88 99 11/14/16 06:44 104 18 104/69 97 Neurologic: Alert Objective Micro and Labs Laboratory Tests Test 11/14/16 07:40 Erythrocyte Sedimentation Rate 5 Ammonia 31 C-Reactive Protein LESS THAN 0.29 Nitesh Casas MD November 14, 2016 20:55
[2016-11-14 21:00] VITALS: PULSE 84
[2016-11-14 22:03] LABS: APTT (PATIENT) 25.3 SEC (24.3-30.1); INTERNATIONAL NORMALIZED RATIO 1.1 RATIO; PROTHROMBIN TIME - PATIENT 12.6 SEC (9.8-11.6)
[2016-11-15] MEDS: SODIUM CHLOR 0.9% 1000 ML INJ 1,000 ML IV SCH ×2 (01:03→18:25)
[2016-11-15] MEDS: LORazepam 2 MG/ML VIAL IM SCH ×4 (01:03→20:01)
[2016-11-15 05:39] VITALS: PULSE 100
[2016-11-15] MEDS: PROPRANOLOL HCL 20 MG TAB PO SCH ×3 (05:39→21:00)
[2016-11-15 06:21] VITALS: BP 115/66; PULSE 101; RESP 16; TEMP 98; O2SAT 96
[2016-11-15] MEDS: ZIPRASIDONE HCL 40 MG CAP PO SCH ×3 (07:57→17:22)
[2016-11-15] MEDS: ZIPRASIDONE MESYLATE 20 MG VIAL IM PRN ×2 (08:00→17:23)
--- NOTE | 2016-11-15 09:53 | HHI.PR ---
Subjective Remarks Follow up paranoid schizophrenia and tachycardia. Patient seen and examined today. Patient is awake. Nonverbal. Bradykinesia, flat affect. , Abdomen and pelvis. Status post lumbar puncture. As per staff, patient continues to be with minimal hydration, and fluid intake. Also reported she has her menstrual period today. Otherwise appears comfortable. Objective Vitals Vital Signs Date Time Temp Pulse Resp B/P Pulse Ox O2 Delivery O2 Flow Rate FiO2 11/15/16 06:21 98.0 101 16 115/66 96 11/15/16 05:39 100 11/14/16 21:00 84 11/14/16 19:37 98.1 105 18 125/75 98 11/14/16 14:15 98.1 120 20 122/88 99 I/O 11/14/16 11/14/16 11/14/16 11/15/16 11/15/16 11/15/16 06:59 14:59 22:59 06:59 14:59 22:59 Intake Total 1320 ml 385 ml Balance 1320 ml 385 ml Intake Oral 1320 ml 385 ml # Voids 6 3 Result Diagram: 11/13/16 0535 Objective Remarks GENERAL: Well-nourished, well-developed patient NAD. Awake. SKIN: No rashes, ecchymoses or lesions. Warm and dry. HEAD: Atraumatic. Normocephalic. EOMI. CARDIOVASCULAR: Tachycardia without murmurs, gallops, or rubs. RESPIRATORY: CTA. Breath sounds equal bilaterally. No wheezes, rales, or rhonchi. GASTROINTESTINAL: Abdomen soft, nondistended. Bowel sounds hypoactive. MUSCULOSKELETAL: Extremities without clubbing, cyanosis, or edema. NEUROLOGICAL: Awake and alert. No rigidity but slow bradykinetic movements noted. NO verbalization. Moves all extremities. Procedures 11/15/16 Lumbar Puncture A/P Problem List: (1) Schizophrenia, paranoid type ICD Code: F20.0 Status: Acute (2) Unspecified psychosis ICD Code: F29 Status: Acute (3) Tachycardia ICD Code: R00.0 Status: Acute (4) Hypokalemia ICD Code: E87.6 Status: Acute Assessment and Plan Patient is a 21-year-old white female with no known primary medical history who came in to the hospital from [facility] under De La Torre act secondary to being belligerent at home, acting out raking things and making suicidal statements. As per record, questionable smoking K2 as per nursing staff at [facility]. The patient also refused to give urine specimen for test. 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 Patient is now admitted to inpatient psychiatry unit for further evaluation. Consulted for medical management, tachycardia. Psychosis, paranoid schizophrenia - Management by psychiatry team - CT scan and neurology consult requested by primary team - r/o organic cause of AMS ? - CT scan normal - seen in consultation by Neurology - MRI brain normal, EEG normal. Plan for LP. Follow-up results - ESR and CRP within normal, RPR and HIV within normal. - Continues to be exhibiting catatonia with minimal movement and no verbalization. Might be a candidate for ECT. - Neurology consulted input appreciated. - Lumbar puncture done today. - CT of the abdomen and pelvis normal examination - CT of the chest unremarkable CT chest. No infiltrate or mass. - As per staff, psychiatrist spoke with father for possible ECT treatment. Tachycardia - Most likely related to paranoia and anxiety,increase Propranolol 20mg Q8hrs - elevated HR may be due in part to dehydration given poor po intake, encourage fluids/increased po intake. Ensure shakes. - TSH WNL - normal white count, afebrile - continue to monitor HR - IV fluids NS 75ml/hr Poor by mouth intake - Continue to encourage by mouth fluid intake - Ensure shakes - Started on IV fluids - If patient continues to have poor by mouth intake, and unable to manage with catatonia and paranoid schizophrenia, consider PEG placement or NGT. - Dietary consult for calorie count, possible tube feedings recommendation, Dobbhoff placement. Possible neuroleptic malignant syndrome, with positive muscle rigidity, elevated total creatine kinase and CK, tachycardia, and catatonia. - Total creatinine kinase, 1453-->360 --> 103 --> 372, needs hydration. IV fluids CK has improved 162 - Discussed with Dr. Marie - likely not NMS. - No appreciable muscle rigidity or tremors noted. - Monitor closely. Hypokalemia - resolved BLE pain/discomfort - Bilateral US to r/o DVT negative DVT prophylaxis: encourage ambulation. Discussed with patient, nursing Written by Mary Bee, acting as scribe for Dr. Baldwin on 11/15/16 at 13:06. This note was transcribed by anibal KARIMI. I, Dr. Norah Baldwin personally performed the history, physical exam, and medical decision making; and confirmed the accuracy of the information in the transcribed note. Authenticated by Dr. Norah Baldwin on 11/15/16 at 13:06. Mary Juares November 15, 2016 09:53 Norah Baldwin MD November 15, 2016 14:01
[2016-11-15] MEDS ORDERED: DIATRIZOATE MEGLUM/DIATRIZOATE SOD 9 ML CUP PO ONE (10:00)
--- NOTE | 2016-11-15 11:05 | PD.RAD ---
Post Procedure Progress Note Pre Procedure Diagnosis: (1) Unspecified psychosis Post Procedure Diagnosis: (1) Unspecified psychosis Procedure Date: November 15, 2016 Supervising Radiologist: Florencio Leslie Anesthesia: Local Plan of Activity Patient to Unit: Nursing Unit Patient Condition: Good See PACS Report for procedural detail/treatment Spinal Procedure Lumbar Puncture L3-L4 Fluid Removal (CCs): 23 Fluid Description: Clear Puncture Time: 10:46 Florencio Leslie MD November 15, 2016 11:05
[2016-11-15] MEDS ORDERED: IOHEXOL 350 MG/ML 10 ML VIAL (for RAD DIAG) IV ONE (11:36)
--- NOTE | 2016-11-15 11:41 | RADRPT ---
EXAM DATE/TIME: 11/15/2016 10:46 [place] COMPARISON: No previous studies available for comparison. INDICATIONS : Patient is in need of a lumbar puncture as part of evaluation for psychotic episode. MEDICAL HISTORY : History of paranoid schizophrenia, auditory hallucinations and delusions. SURGICAL HISTORY : N/A ENCOUNTER: Initial ACUITY: 2 weeks PAIN SCORE: 0/10 LUMBAR PUNCTURE TIME: 1046 hours FLUORO TIME: 0.8 minutes IMAGE SERIES: 0 ACCESS LEVEL: L4 FLUID: 23 cc of clear CSF was collected and sent to the laboratory for analysis. PROCEDURE : 1. Fluoroscopic guided lumbar puncture. The risks, benefits and alternatives to the procedure were explained and verbal and written consent w as obtained. The site was prepped in sterile fashion. Full sterile technique was used, including ca p, mask, sterile gloves and gown and a large sterile sheet. Hand hygiene and 2% chlorhexidine and/or betadine/alcohol prep was utilized per protocol for cutaneous antisepsis. The skin and subcutaneous tissues were infiltrated with local anesthetic solution. With fluoroscopic guidance the lumbar thecal sac was punctured at the level above. The fluid describ ed above was removed without difficulty. The patient tolerated the procedure well and there were no complications. CONCLUSION: Uncomplicated fluoroscopically guided lumbar puncture. Florencio Leslie MD on November 15, 2016 at 11:38 Board Certified Radiologist. This report was verified electronically.
--- NOTE | 2016-11-15 11:56 | RADRPT ---
EXAM DATE/TIME: 11/15/2016 11:13 [facility] COMPARISON: No previous studies available for comparison. 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 IV CONTRAST: 94 cc Omnipaque 350 (iohexol) IV ; Cumulative dose for multiple exams. ORAL CONTRAST: No oral contrast ingested. RADIATION DOSE: 5.13 CTDIvol (mGy) ; Combined studies - Thorax/Abdomen/Pelvis MEDICAL HISTORY : None SURGICAL HISTORY : None. ENCOUNTER: Initial ACUITY: 1 week PAIN SCALE: Non-responsive LOCATION: abdomen TECHNIQUE: Volumetric scanning of the abdomen and pelvis was performed. Using automated exposure control and ad justment of the mA and/or kV according to patient size, radiation dose was kept as low as reasonably achievable to obtain optimal diagnostic quality images. FINDINGS: LOWER LUNGS: The visualized lower lungs are clear. LIVER: Homogeneous density without lesion. There is no dilation of the biliary tree. No calcified gallston es. SPLEEN: Normal size without lesion. PANCREAS: Within normal limits. KIDNEYS: Normal in size and shape. There is no mass, stone or hydronephrosis. ADRENAL GLANDS: Within normal limits. VASCULAR: There is no aortic aneurysm. BOWEL/MESENTERY: The stomach, small bowel, and colon demonstrate no acute abnormality. There is no free intraperitone al air or fluid. ABDOMINAL WALL: Within normal limits. RETROPERITONEUM: There is no lymphadenopathy. BLADDER: No wall thickening or mass. REPRODUCTIVE: Within normal limits. INGUINAL: There is no lymphadenopathy or hernia. MUSCULOSKELETAL: Within normal limits for patient age. CONCLUSION: Normal examination. Rolando Nuñez MD on November 15, 2016 at 11:47 Board Certified Radiologist. This report was verified electronically.
--- NOTE | 2016-11-15 12:06 | RADRPT ---
EXAM DATE/TIME: 11/15/2016 11:20 [facility] COMPARISON: No previous studies available for comparison. 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 IV CONTRAST: 94 cc Omnipaque 350 (iohexol) IV ; Cumulative dose for multiple exams. RADIATION DOSE: 5.13 CTDIvol (mGy) ; Combined studies - Thorax/Abdomen/Pelvis MEDICAL HISTORY : None SURGICAL HISTORY : None. ENCOUNTER: Initial ACUITY: 1 week PAIN SCALE: Non-responsive LOCATION: chest TECHNIQUE: Volumetric scanning of the chest was performed. Using automated exposure control and adjustment of t he mA and/or kV according to patient size, radiation dose was kept as low as reasonably achievable to obtain optimal diagnostic quality images. FINDINGS: LUNGS: There is no consolidation or pneumothorax. No concerning pulmonary nodule is visualized. The apices are not included within the study. PLEURA: There is no pleural thickening or pleural effusion. MEDIASTINUM: The heart and great vessels demonstrate no acute abnormality. There is no mediastinal or hilar lymph adenopathy. AXILLAE: Within normal limits. No lymphadenopathy. SKELETAL: Within normal limits for patient age. MISCELLANEOUS: The visualized upper abdominal organs demonstrate no acute abnormality. CONCLUSION: 1. Unremarkable CT chest. 2. No infiltrate or mass. Prieto Rock MD on November 15, 2016 at 12:03 Board Certified Radiologist. This report was verified electronically.
[2016-11-15 12:43] LABS: GROSS BLOOD TUBE #1 1+ (0); GROSS BLOOD TUBE #2 0 (0); SUPERNATE COLOR TUBE #1 CLEAR (CLEAR); SUPERNATE COLOR TUBE #2 CLEAR (CLEAR); SUPERNATE COLOR TUBE #3 CLEAR (CLEAR); VOLUME TUBE # 1 5.1 ML; VOLUME TUBE # 2 5.1 ML; VOLUME TUBE # 3 5.2 ML
[2016-11-15 12:44] LABS: GROSS BLOOD TUBE #4 0 (0); SUPERNATE COLOR TUBE #4 CLEAR (CLEAR); VOLUME TUBE # 4 7.8 ML; WBC TUBE #4 0 /MM3 (0-10)
[2016-11-15 12:45] LABS: CSF LYMPHOCYTES 0 %; CSF NEUTROPHILS 0 %
--- NOTE | 2016-11-15 13:18 | HHI.PYPN ---
Subjective Remarks A his into the for psychiatric reevaluation, patient was found a little groggy, sedated, but verbal, she is oriented in time person and place, she reports good mood, however continues to show poverty of speech, slowed thought processes, negativism, marked psychomotor retardation.. We have a lot conversation with her father today in which with started to see the idea of referring the patient for ECT. He was hoping about this possibility, he said that he will do more research about this procedure and will agree if this is to help his daughter. Review of Systems Other No somatic complaints Objective Alert: Yes [place]: Person, Place, Date Mood: Calm, Oppositional Affect: Flat, Blunted Memory Intact: Comment (Not formally assessed) Hallucinations: Other (remains internally stimulated) Delusions: Yes Delusion Type: Paranoid Suicidal: Ideation (no SI) Homicidal: Ideation (no HI) Insight/Judgment Poor Labs Test 11/14/16 11/15/16 21:28 10:46 Prothrombin Time 12.6 SEC Prothromb Time International 1.1 RATIO Ratio Activated Partial 25.3 SEC Thromboplast Time CSF Volume (Tube 1) 5.1 ML CSF Supernatant Color (tube 1) CLEAR CSF Gross Blood (Tube 1) 1+ CSF Volume (Tube 2) 5.1 ML CSF Supernatant Color (tube 2) CLEAR CSF Gross Blood (Tube 2) 0 CSF Volume (Tube 3) 5.2 ML CSF Supernatant Color (tube 3) CLEAR CSF Volume (Tube 4) 7.8 ML CSF Supernatant Color (tube 4) CLEAR CSF Gross Blood (Tube 4) 0 CSF WBC (Tube 4) 0 /MM3 CSF RBC (Tube 4) 2 /MM3 CSF Neutrophils 0 % CSF Lymphocytes 0 % CSF Glucose 62 MG/DL CSF Total Protein 23.4 MG/DL Date/Time Procedure Status Source Growth 11/15/16 10:46 Gram Stain Received Cerebral Spinal Fluid Lumbar Puncture Pending 11/15/16 10:46 CSF Culture Received Cerebral Spinal Fluid Lumbar Puncture Pending 11/15/16 10:46 Acid Fast Stain Received Cerebral Spinal Fluid Lumbar Puncture Pending 11/15/16 10:46 Mycobacterial Culture Received Cerebral Spinal Fluid Lumbar Puncture Pending Vitals/IOs Vital Signs Date Time Temp Pulse Resp B/P Pulse Ox O2 Delivery O2 Flow Rate FiO2 11/15/16 06:21 98.0 101 16 115/66 96 Intake and Output 511/14/16 11/15/16 08:00 16:00 00:00 Intake Total 1080 ml 265 ml Balance 1080 ml 265 ml Assessment & Plan Problem List: (1) Catatonia ICD Code: F06.1 (2) Unspecified psychosis Assessment & Plan: Continue current psychotropics. Encouraged the patient to walk, to participate in activities, to take her medications. ICD Code: F29 Assessment & Plan Estimated LOS: days Justification for Cont. Inpt. Patient is to continue with her psychiatric hospitalization for stabilization of psychosis and catatonia Request HC Surrog/Guard Advoc?: Yes Damian Marie MD November 15, 2016 13:18
[2016-11-15 14:51] VITALS: BP 119/73; PULSE 106; RESP 22; O2SAT 98
[2016-11-15 17:01] VITALS: BP 133/89; PULSE 128; RESP 24; TEMP 97.6; O2SAT 98
[2016-11-15 20:18] VITALS: BP 130/60; PULSE 111; RESP 18; TEMP 98; O2SAT 98
[2016-11-15 21:00] VITALS: PULSE 96
[2016-11-16] MEDS: LORazepam 2 MG/ML VIAL IM SCH ×4 (01:16→21:42)
[2016-11-16] MEDS: SODIUM CHLOR 0.9% 1000 ML INJ 1,000 ML IV SCH ×2 (02:58→21:05)
[2016-11-16] MEDS: PROPRANOLOL HCL 20 MG TAB PO SCH ×3 (05:09→21:42)
[2016-11-16 05:52] VITALS: BP 127/86; PULSE 117; RESP 20; TEMP 97.6; O2SAT 98
[2016-11-16] MEDS: ZIPRASIDONE MESYLATE 20 MG VIAL IM PRN ×2 (09:30→17:41)
--- NOTE | 2016-11-16 10:36 | HHI.PYPN ---
Subjective Remarks Patient was seen today on psychiatric reevaluation, patient was found laying down in bed, minimally cooperative, she answer with monosyllables just a few of our questions, she continues to be stiff, with waxy flexibility, echopraxia, resistance to move, retained grasp, marked negativism, very slowed thought processes, poverty of speech and alogia. Surprisingly patient is oriented 3. Patient also has been showing difficulties eating and taking by mouth pills,. She has being in Ativan 2 mg IM every 4 hours for catatonia, with very poor- slow response, went Ativan has been tried to increase over this dose then she has been too sedated. We had a conversation with her father yesterday about the possibility of transferring the patient to an ECT facility. Review of Systems Other No somatic complaints Objective Alert: Yes [place]: Person, Place, Date Mood: Calm, Oppositional Affect: Flat, Blunted Memory Intact: Comment (Not formally assessed) Hallucinations: Other (remains internally stimulated) Delusions: Yes Delusion Type: Paranoid Suicidal: Ideation (no SI) Homicidal: Ideation (no HI) Insight/Judgment Poor Labs Test 11/15/16 10:46 CSF Volume (Tube 1) 5.1 ML CSF Supernatant Color (tube 1) CLEAR CSF Gross Blood (Tube 1) 1+ CSF Volume (Tube 2) 5.1 ML CSF Supernatant Color (tube 2) CLEAR CSF Gross Blood (Tube 2) 0 CSF Volume (Tube 3) 5.2 ML CSF Supernatant Color (tube 3) CLEAR CSF Volume (Tube 4) 7.8 ML CSF Supernatant Color (tube 4) CLEAR CSF Gross Blood (Tube 4) 0 CSF WBC (Tube 4) 0 /MM3 CSF RBC (Tube 4) 2 /MM3 CSF Neutrophils 0 % CSF Lymphocytes 0 % CSF Glucose 62 MG/DL CSF Total Protein 23.4 MG/DL Date/Time Procedure Status Source Growth 11/15/16 10:46 Gram Stain - Final Resulted Cerebral Spinal Fluid Lumbar Puncture 11/15/16 10:46 CSF Culture - Preliminary Resulted Cerebral Spinal Fluid Lumbar Puncture NO GROWTH IN 24 HOURS. 11/15/16 10:46 Acid Fast Stain Received Cerebral Spinal Fluid Lumbar Puncture Pending 11/15/16 10:46 Mycobacterial Culture Received Cerebral Spinal Fluid Lumbar Puncture Pending Vitals/IOs Vital Signs Date Time Temp Pulse Resp B/P Pulse Ox O2 Delivery O2 Flow Rate FiO2 11/16/16 05:52 97.6 117 20 127/86 98 Intake and Output 11/15/16 11/15/16 11/16/16 08:00 16:00 00:00 Intake Total 120 ml 360 ml Balance 120 ml 360 ml Assessment & Plan Problem List: (1) Catatonia Assessment & Plan: Patient continues to shows refractory catatonia and psychosis, resistant to improve with Ativan and Geodon. Will increase by mouth Geodon to 60 mg twice a day. We'll continue discussion with family about potential benefits of ECT. ICD Code: F06.1 (2) Unspecified psychosis ICD Code: F29 Assessment & Plan Estimated LOS: days Justification for Cont. Inpt. Patient continues to be acutely catatonic/psychosis, needs inpatient level of care. Request HC Surrog/Guard Advoc?: Yes Damian Marie MD November 16, 2016 10:36
--- NOTE | 2016-11-16 13:16 | RADRPT ---
EXAM DATE/TIME: 11/16/2016 12:48 [facility] COMPARISON: No previous studies available for comparison. INDICATIONS : Confirm NG tube placement MEDICAL HISTORY : brief psychotic disorder SURGICAL HISTORY : None. ENCOUNTER: Initial ACUITY: 1 day PAIN SCORE: Non-responsive. LOCATION: Bilateral abdomen FINDINGS: Examination of the abdomen demonstrates a Dobbhoff catheter within the stomach. The radiopaque tip is in the fundus of the stomach. CONCLUSION: Distal radiopaque tip of the Dobbhoff catheter is in the fundus of the stomach. Florencio Leslie MD on November 16, 2016 at 13:12 Board Certified Radiologist. This report was verified electronically.
--- NOTE | 2016-11-16 13:24 | HHI.PR ---
Subjective Remarks Follow up paranoid schizophrenia and tachycardia. Patient seen and examined today. Patient is lethargic today, opens eyes to voice. Given IM Geodon today. Lying in bed in no apparent distress. Nonverbal with flat affect. Dobhoff placed today for supplemental nutrition due to minimal hydration and PO intake. Status post LP yesterday, cultures pending. Afebrile. Objective Vitals Vital Signs Date Time Temp Pulse Resp B/P Pulse Ox O2 Delivery O2 Flow Rate FiO2 11/16/16 05:52 97.6 117 20 127/86 98 11/15/16 21:00 96 11/15/16 20:18 98.0 111 18 130/60 98 11/15/16 17:01 97.6 128 24 133/89 98 11/15/16 14:51 106 22 119/73 98 I/O 11/15/16 11/15/16 11/15/16 11/16/16 11/16/16 11/16/16 07:00 15:00 23:00 07:00 15:00 23:00 Intake Total 385 ml 870 ml Balance 385 ml 870 ml Intake Oral 385 ml 870 ml # Voids 3 8 Result Diagram: 11/13/16 0535 Imaging Last Impressions Chest CT 11/15/16 0000 Signed Impressions: Service Date/Time: November 11:20 - CONCLUSION: 1. Unremarkable CT chest. 2. No infiltrate or mass. Prieto Rock MD Abdomen/Pelvis CT 11/15/16 0000 Signed Impressions: Service Date/Time: November 11:13 - CONCLUSION: Normal examination. Rolando Nuñez MD Lumbar Puncture Fluoroscopy 11/14/16 0000 Signed Impressions: Service Date/Time: November 10:46 - CONCLUSION: Uncomplicated fluoroscopically guided lumbar puncture. Florencio Leslie MD Brain MRI 11/09/16 0000 Signed Impressions: Service Date/Time: Wednesday, November 09, 2016 13:26 - CONCLUSION: 1. Small amount of fluid within the sphenoid sinus. The examination is otherwise unremarkable. Bi Berg MD Head CT 11/08/16 0000 Signed Impressions: Service Date/Time: November 18:15 - CONCLUSION: Normal examination. Ravi Ace MD Lower Extremity Ultrasound 11/07/16 0000 Signed Impressions: Service Date/Time: Monday, November 07, 2016 10:57 - CONCLUSION: No evidence of deep venous thrombosis within the lower extremities. Philippe Menendez MD Objective Remarks GENERAL: Well-developed patient, flat affect, nonverbal, lethargic today given IM geodon today. SKIN: No rashes, ecchymoses or lesions. Warm and dry. HEAD: Atraumatic. Normocephalic. No temporal or scalp tenderness. Pupils equal round and reactive. Nose without bleeding. Airway patent. No JVD or lymphadenopathy. Supple, nontender, no meningeal signs. CARDIOVASCULAR: Tachycardia without murmurs, gallops, or rubs. RESPIRATORY: CTA. Breath sounds equal bilaterally. No wheezes, rales, or rhonchi. GASTROINTESTINAL: Abdomen soft, non-tender, nondistended. Bowel sounds active x 4. Right nare dobhoff noted, MUSCULOSKELETAL: Extremities without clubbing, cyanosis, or edema. NEUROLOGICAL: Awake and alert. Stiffness improved. No tremors noted. Verbalizing occasionally. Moves all extremity. Normal speech. Procedures 11/15/16 Lumbar Puncture 11/16/16 Dobhoff placement A/P Problem List: (1) Schizophrenia, paranoid type ICD Code: F20.0 Status: Acute (2) Unspecified psychosis ICD Code: F29 Status: Acute (3) Tachycardia ICD Code: R00.0 Status: Acute (4) Hypokalemia ICD Code: E87.6 Status: Acute Assessment and Plan Patient is a 21-year-old white female with no known primary medical history who came in to the hospital from [facility] under De La Torre act secondary to being belligerent at home, acting out raking things and making suicidal statements. As per record, questionable smoking K2 as per nursing staff at [facility]. The patient also refused to give urine specimen for test. 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 Patient is now admitted to inpatient psychiatry unit for further evaluation. Consulted for medical management, tachycardia. Psychosis, paranoid schizophrenia - managed by psychiatry team - Patient's affect flat today, lethargic. Given IM Geodon today. Minimal words. No tremors noted. Tachycardia - Most likely related to paranoia and anxiety, has not resolved and patient refusing Propranolol PRN. Will begin Propranolol scheduled. Encouraged patient of importance of taking her medications. Continue IVF, NS 75ml/hr. - EKG done 10/31 and reviewed by me, tachycardia [address] changes. - Ativan 2 mg scheduled IM and available PRN. - Geodon 20 mg BIDPC IM PRN. - Unremarkable labs, reviewed. Previous toxicology negative. Possible neuroleptic malignant syndrome, with positive muscle rigidity, elevated total creatine kinase and CK, tachycardia, tremors, and catatonia. - Total creatinine kinase, 1453-->1323 --> 722 --> 672 --> 472 --> 479 --> 360 --> 103 --> 372 --> 162. Resolved. - Muscle rigidity and tremors much improved, more sporadic. Continue IVF, minimal PO intake. - Abilify stopped. - Monitor closely. - Propranolol 10 mg Q8hr scheduled. Encouraged patient to take this, has been refusing lately. - Status post lumbar puncture 11/15, CSF culture NGTD. Acid fast stain and mycobacterial culture pending. Poor PO intake, not meeting caloric needs/Malnutrition - Patient has lost a total of 3 kg since admission - Dobhoff placed today. Will begin TF per cable inspector recommendations to assist in maximizing meeting nutritional needs. Nausea, resolved for now. - Zofran PRN DVT prophylaxis: encourage ambulation. This note was transcribed by anibal Montelongo. I, Dr. John Sesay personally performed the history, physical exam, and medical decision making; and confirmed the accuracy of the information in the transcribed note. Authenticated by Dr. John Sesay on 11/17/16 at 10:40. Giuliana Montelongo November 16, 2016 13:24 John Sesay DO November 17, 2016 10:41
--- NOTE | 2016-11-16 16:07 | HHI.PR ---
Review/Management Diagnosis/Plan: (1) Brief psychotic disorder Plan: mri brain nml eeg nml, no sz activity recs check esr/crp,nh3 level can consider paraneoplastic w/u, ct chest/abd/pelvis but will defer to Dr. 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 (3) Tachycardia Daily Summary 11/14 remains minimally participant, nonverbal subacute psychosis, Specific cause will order ct chest and abdomen as well as CSF data searching for paraneoplastic autoimmune limbic encephalitis 11/16 unchanged, sleepy from meds minimal speech upon awakening CSF normal so far but encephalitis antibodies will take up to 2-3 weeks to be back considering a pure psychiatric presentation, normal mri and eeg, doubt of encephalitis and would continue to pursue psychiatric care Subjective Subjective Comments No acute events reported Active Medications Current Medications Medications (Trade) Dose Ordered Sig/Tien Route Start Time Stop Time Status Last Admin (Milk Of Magnleonid Liq) 30 ml Q6H PRN PO 10/28/16 15:00 (Benadryl) 50 mg Q6H PRN PO 10/29/16 17:00 11/09/16 15:01 (Benadryl Inj) 50 mg Q6H PRN IM 10/29/16 17:00 11/13/16 05:20 (Tylenol) 650 mg Q4H PRN PO 10/29/16 17:00 11/11/16 18:07 (Ativan) 2 mg Q6H PRN PO 10/31/16 17:00 11/14/16 02:32 (Zofran Inj) 4 mg Q8HR PRN IV PUSH 11/01/16 13:30 (Inderal) 20 mg Q8HR PO 11/11/16 14:00 11/16/16 14:00 (NS Flush) 2 ml UNSCH PRN IV FLUSH 11/12/16 14:15 (Geodon Inj) 20 mg BIDPC PRN IM 11/14/16 09:15 11/16/16 09:30 Lorazepam 2 mg 2 mg Q6H IM 11/14/16 20:00 11/16/16 14:00 (NS 1000 ml Inj) 1,000 ml @ 75 mls/hr [id number] IV 11/14/16 15:45 11/16/16 02:58 (Geodon) 60 mg BIDPC PO 11/16/16 18:00 Allergies Allergies Coded Allergies No Known Allergies (Unverified10/17/16) Review of Systems All other ROS: ROS reviewed as documented in chart Exam I&O / VS 11/15/16 11/15/16 11/16/16 15:00 23:00 07:00 Intake Total 870 ml Balance 870 ml Intake Oral 870 ml # Voids 8 Vital Signs Date Time Temp Pulse Resp B/P Pulse Ox O2 Delivery O2 Flow Rate FiO2 11/16/16 05:52 97.6 117 20 127/86 98 11/15/16 21:00 96 11/15/16 20:18 98.0 111 18 130/60 98 11/15/16 17:01 97.6 128 24 133/89 98 Neurologic: Alert Objective Radiology Results Laboratory Tests Test 11/14/16 11/15/16 21:28 10:46 Prothrombin Time 12.6 SEC (9.8-11.6) CSF Gross Blood (Tube 1) 1+ (0) CSF RBC (Tube 4) 2 /MM3 (NONE) Micro and Labs Date/Time Procedure Status Source Growth 11/15/16 10:46 Gram Stain - Final Resulted Cerebral Spinal Fluid Lumbar Puncture 11/15/16 10:46 CSF Culture - Preliminary Resulted Cerebral Spinal Fluid Lumbar Puncture NO GROWTH IN 24 HOURS. 11/15/16 10:46 Acid Fast Stain - Final Resulted Cerebral Spinal Fluid Lumbar Puncture NO ACID FAST BACILLI SEEN 11/15/16 10:46 Mycobacterial Culture Resulted Cerebral Spinal Fluid Lumbar Puncture Pending Nitesh Casas MD November 16, 2016 16:07
[2016-11-16 16:21] VITALS: BP 122/75; PULSE 103; RESP 18; TEMP 98; O2SAT 98
[2016-11-16] MEDS: ZIPRASIDONE HCL 60 MG CAP PO SCH (17:41)
[2016-11-17] MEDS: LORazepam 2 MG/ML VIAL IM SCH ×4 (01:57→21:04)
[2016-11-17] MEDS: SODIUM CHLOR 0.9% 1000 ML INJ 1,000 ML IV SCH (05:16)
[2016-11-17 05:49] VITALS: BP 120/70; PULSE 87; RESP 16; TEMP 98.1; O2SAT 97
[2016-11-17] MEDS: PROPRANOLOL HCL 20 MG TAB PO SCH ×3 (06:00→21:04)
[2016-11-17] MEDS: ZIPRASIDONE HCL 60 MG CAP PO SCH ×2 (08:16→18:00)
--- NOTE | 2016-11-17 10:42 | HHI.PR ---
Subjective Remarks Follow up paranoid schizophrenia and tachycardia. Patient seen and examined today. Patient is awake. Nonverbal. Bradykinesia, flat affect. NGT in place tube feeding at goal. As per nursing, patient was able to verbalize need today. States that she is not pain but has some discomfort with a tube in her nose. Bladder scan was done, with high residual, catheterization was done. Objective Vitals Vital Signs Date Time Temp Pulse Resp B/P Pulse Ox O2 Delivery O2 Flow Rate FiO2 11/17/16 05:49 98.1 87 16 120/70 97 11/16/16 16:21 98.0 103 18 122/75 98 I/O 11/16/16 11/16/16 11/16/16 11/17/16 11/17/16 11/17/16 06:59 14:59 22:59 06:59 14:59 22:59 Intake Total 870 ml 1110 ml Balance 870 ml 1110 ml Intake Oral 870 ml 60 ml IV Total 750 ml Tube Feeding 300 ml # Voids 8 6 5 # Bowel Movements 0 Result Diagram: 11/13/16 0535 Objective Remarks GENERAL: pt. is a well-developed patient, NAD. Awake. SKIN: No rashes, ecchymoses or lesions. Warm and dry. HEAD: Atraumatic. Normocephalic. EOMI. CARDIOVASCULAR: Tachycardia without murmurs, gallops, or rubs. RESPIRATORY: CTA. Breath sounds equal bilaterally. No wheezes, rales, or rhonchi. GASTROINTESTINAL: Abdomen soft, nondistended. Bowel sounds hypoactive. NGT Dobbhoff in place MUSCULOSKELETAL: Extremities without clubbing, cyanosis, or edema. NEUROLOGICAL: Awake and alert. No rigidity but slow bradykinetic movements noted. No verbalization. Moves all extremities. Procedures 11/15/16 Lumbar Puncture 11/16/16 Dobhoff placement A/P Problem List: (1) Schizophrenia, paranoid type ICD Code: F20.0 Status: Acute (2) Unspecified psychosis ICD Code: F29 Status: Acute (3) Tachycardia ICD Code: R00.0 Status: Acute (4) Hypokalemia ICD Code: E87.6 Status: Acute Assessment and Plan Patient is a 21-year-old white female with no known primary medical history who came in to the hospital from [facility] under De La Torre act secondary to being belligerent at home, acting out raking things and making suicidal statements. As per record, questionable smoking K2 as per nursing staff at [facility] [place]. The patient also refused to give urine specimen for test. 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 Patient is now admitted to inpatient psychiatry unit for further evaluation. Consulted for medical management, tachycardia. Psychosis, paranoid schizophrenia - Management by psychiatry team - CT scan and neurology consult requested by primary team - r/o organic cause of AMS ? - CT scan normal - seen in consultation by Neurology - MRI brain normal, EEG normal. Plan for LP. Follow-up results - ESR and CRP within normal, RPR and HIV within normal. - Continues to be exhibiting catatonia with minimal movement and no verbalization. Might be a candidate for ECT. - Neurology consulted input appreciated. CSF normal, encephalitis antibodies may take 2-3 weeks for results. As per neuro, consider per psychiatric presentation. - Lumbar puncture done today. - CT of the abdomen and pelvis normal examination - CT of the chest unremarkable CT chest. No infiltrate or mass. - As per staff, psychiatrist spoke with father for possible ECT treatment. Tachycardia - Most likely related to paranoia and anxiety,increase Propranolol 20mg Q8hrs. - elevated HR may be due in part to dehydration given poor po intake, encourage fluids/increased po intake. Ensure shakes. - TSH WNL - normal white count, afebrile - continue to monitor HR - IV fluids for hydration, will DC not that patient has NGT. Poor by mouth intake Weight loss - Continue to encourage by mouth fluid intake - Ensure shakes - Patient continues to have poor by mouth intake, unable to meet caloric needs. Dobbhoff placed. - NGT feedings, Dobbhoff placement for short-term nutritional support. If patient continues to not meet caloric intake, recommend for PEG placement. - Dietary consult recommend tube feedings Jevity 1.5 goal of 50 ML's an hour. Tolerating. - Monitor for aspiration. HLD 30, patient out of bed to chair sitting up. Possible neuroleptic malignant syndrome, with positive muscle rigidity, elevated total creatine kinase and CK, tachycardia, and catatonia. - Total creatinine kinase needs hydration. IV fluids CK has improved 162 - Discussed with Dr. Marie - likely not NMS. - No appreciable muscle rigidity or tremors noted. - Monitor closely. Hypokalemia - resolved BLE pain/discomfort - Bilateral US to r/o DVT negative DVT prophylaxis: encourage ambulation. Discussed with patient, nursing, Mary Prather November 17, 2016 10:42
[2016-11-17] MEDS: FREE WATER G-TUBE SCH ×2 (12:00→18:00)
--- NOTE | 2016-11-17 12:44 | HHI.PYPN ---
Subjective Remarks Patient seen in her room with nurse in Mani and comfort, patient laying in bed markedly psychomotor retarded with eyes closed. Patient not responding to any verbal questioning by me patient is in soft restraints though within those limits as is showing chronic she flexibility and posturing. Nurse is able to elicit slight further response from patient. She did open her eyes and look at the nurse. Patient compliant medications. For now continue treatment Review of Systems Except as stated in HPI: all other systems reviewed are Neg Objective Alert: Yes [place]: Person, Place, Date Mood: Calm, Oppositional Affect: Flat, Blunted Memory Intact: Comment (Not formally assessed) Hallucinations: Other (remains internally stimulated) Delusions: Yes Delusion Type: Paranoid Suicidal: Ideation (no SI) Homicidal: Ideation (no HI) Insight/Judgment Very poor Labs Date/Time Procedure Status Source Growth 11/15/16 10:46 Gram Stain - Final Resulted Cerebral Spinal Fluid Lumbar Puncture 11/15/16 10:46 CSF Culture - Preliminary Resulted Cerebral Spinal Fluid Lumbar Puncture NO GROWTH IN 48 HOURS. 11/15/16 10:46 Acid Fast Stain - Final Resulted Cerebral Spinal Fluid Lumbar Puncture NO ACID FAST BACILLI SEEN 11/15/16 10:46 Mycobacterial Culture Resulted Cerebral Spinal Fluid Lumbar Puncture Pending Vitals/IOs Vital Signs Date Time Temp Pulse Resp B/P Pulse Ox O2 Delivery O2 Flow Rate FiO2 11/17/16 05:49 98.1 87 16 120/70 97 Intake and Output 11/16/16 11/16/16 11/17/16 08:00 16:00 00:00 Intake Total 510 ml Balance 510 ml Assessment & Plan Problem List: (1) Catatonia ICD Code: F06.1 (2) Unspecified psychosis ICD Code: F29 Assessment & Plan Estimated LOS: days patient continues catatonic marked psychomotor retardation , though appears to show some occasional responsiveness to staff Justification for Cont. Inpt. At this time patient will decompensate if placed on the lower level of care Discharge Planning To be determined Request HC Surrog/Guard Advoc?: Yes Ravi Roman MD November 17, 2016 12:43
[2016-11-17 17:54] VITALS: BP 128/78; PULSE 99; RESP 16; TEMP 98.3; O2SAT 100
[2016-11-17 19:53] LABS: VDRL CSF NON-REACTIVE (())
[2016-11-17] MEDS: MAGNESIUM HYDROXIDE SUSP 30 ML CUP PO PRN (21:04)
[2016-11-18] MEDS: LORazepam 2 MG/ML VIAL IM SCH ×4 (01:23→21:21)
[2016-11-18 05:29] VITALS: BP 119/72; PULSE 100; RESP 18; TEMP 97.5; O2SAT 97
[2016-11-18] MEDS: PROPRANOLOL HCL 20 MG TAB PO SCH ×3 (05:51→21:21)
[2016-11-18] MEDS: FREE WATER G-TUBE SCH ×4 (05:51→18:00)
[2016-11-18] MEDS: ZIPRASIDONE HCL 60 MG CAP PO SCH ×2 (09:17→18:00)
--- NOTE | 2016-11-18 11:26 | HHI.PR ---
Subjective Remarks Follow up paranoid schizophrenia and tachycardia. Patient seen and examined today. Patient is awake. Bradykinesia, flat affect. NGT in place tube feeding at goal. She more verbal than usual but hypoverbal persist. Appears comfortable. As per staff, patient is talking more and encouragement to eat more. Objective Vitals Vital Signs Date Time Temp Pulse Resp B/P Pulse Ox O2 Delivery O2 Flow Rate FiO2 11/18/16 05:29 97.5 100 18 119/72 97 11/17/16 17:54 98.3 99 16 128/78 100 I/O 11/17/16 11/17/16 11/17/16 11/18/16 11/18/16 11/18/16 07:00 15:00 23:00 07:00 15:00 23:00 Intake Total 1110 ml 200 ml 1420 ml Balance 1110 ml 200 ml 1420 ml Intake Oral 60 ml 200 ml 960 ml IV Total 750 ml Tube Feeding 300 ml 460 ml # Voids 5 2 # Bowel Movements 0 0 Objective Remarks GENERAL: pt. is a well-developed patient, NAD. Awake. SKIN: No rashes, ecchymoses or lesions. Warm and dry. HEAD: Atraumatic. Normocephalic. EOMI. CARDIOVASCULAR: Tachycardia without murmurs, gallops, or rubs. RESPIRATORY: CTA. Breath sounds equal bilaterally. No wheezes, rales, or rhonchi. GASTROINTESTINAL: Abdomen soft, nondistended. Bowel sounds hypoactive. NGT Dobbhoff in place MUSCULOSKELETAL: Extremities without clubbing, cyanosis, or edema. NEUROLOGICAL: Awake and alert. No rigidity but slow bradykinetic movements noted. No verbalization. Moves all extremities. Procedures 11/15/16 Lumbar Puncture 11/16/16 Dobhoff placement A/P Problem List: (1) Schizophrenia, paranoid type ICD Code: F20.0 Status: Acute (2) Unspecified psychosis ICD Code: F29 Status: Acute (3) Tachycardia ICD Code: R00.0 Status: Acute (4) Hypokalemia ICD Code: E87.6 Status: Acute Assessment and Plan Patient is a 21-year-old white female with no known primary medical history who came in to the hospital from [facility] under De La Torre act secondary to being belligerent at home, acting out raking things and making suicidal statements. As per record, questionable smoking K2 as per nursing staff at [facility]. The patient also refused to give urine specimen for test. 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 Patient is now admitted to inpatient psychiatry unit for further evaluation. Consulted for medical management, tachycardia. Psychosis, paranoid schizophrenia - Management by psychiatry team - CT scan and neurology consult requested by primary team - r/o organic cause of AMS ? - CT scan normal - seen in consultation by Neurology - MRI brain normal, EEG normal. Plan for LP. Follow-up results - ESR and CRP within normal, RPR and HIV within normal. - Continues to be exhibiting catatonia with minimal movement and no verbalization. Might be a candidate for ECT. - Neurology consulted input appreciated. CSF normal, encephalitis antibodies may take 2-3 weeks for results. As per neuro, consider per psychiatric presentation. - Lumbar puncture done today. - CT of the abdomen and pelvis normal examination - CT of the chest unremarkable CT chest. No infiltrate or mass. - As per staff, psychiatrist spoke with father for possible ECT treatment. Tachycardia - Most likely related to paranoia and anxiety,increase Propranolol 20mg Q8hrs. - elevated HR may be due in part to dehydration given poor po intake, encourage fluids/increased po intake. Ensure shakes. - TSH WNL - normal white count, afebrile - continue to monitor HR - off IVF Poor by mouth intake Weight loss - Continue to encourage by mouth fluid intake - Ensure shakes - Patient continues to have poor by mouth intake, unable to meet caloric needs. Dobbhoff placed. - NGT feedings, Dobbhoff placement for short-term nutritional support. If patient continues to not meet caloric intake, recommend for PEG placement. - Dietary consult recommend tube feedings Jevity 1.5 goal of 50 ML's an hour. Tolerating. - Monitor for aspiration. HLD 30, patient out of bed to chair sitting up. Possible neuroleptic malignant syndrome, with positive muscle rigidity, elevated total creatine kinase and CK, tachycardia, and catatonia. - Total creatinine kinase needs hydration. IV fluids CK has improved 162 - Discussed with Dr. Marie - likely not NMS. - No appreciable muscle rigidity or tremors noted. - Monitor closely. Hypokalemia - resolved BLE pain/discomfort - Bilateral US to r/o DVT negative DVT prophylaxis: encourage ambulation. Discussed with patient, nursing, Mary Prather November 18, 2016 11:26
[2016-11-18 12:24] LABS: CSF CRYPTOCOCCUS AG CONF ND (NOT DETECTD)
--- NOTE | 2016-11-18 13:01 | HHI.PYPN ---
Subjective Remarks Patient seen in her room nurse Pepe and nurse Mani. Patient lying in bed calm with eyes closed. Patient not responding to my verbal questions or presents. That appears patient has a conversations with other various nurses under the mother and did fairly well with her meal last night. Otherwise no behavior problem. For now continue treatment Review of Systems Except as stated in HPI: all other systems reviewed are Neg Objective Alert: Yes [place]: Person, Place, Date Mood: Calm, Oppositional Affect: Flat, Blunted Memory Intact: Comment (Not formally assessed) Hallucinations: Other (remains internally stimulated) Delusions: Yes Delusion Type: Paranoid Suicidal: Ideation (no SI) Homicidal: Ideation (no HI) Insight/Judgment Very poor Labs Date/Time Procedure Status Source Growth 11/15/16 10:46 Gram Stain - Final Complete Cerebral Spinal Fluid Lumbar Puncture 11/15/16 10:46 CSF Culture - Final Complete Cerebral Spinal Fluid Lumbar Puncture NO GROWTH IN 72 HOURS 11/15/16 10:46 Acid Fast Stain - Final Resulted Cerebral Spinal Fluid Lumbar Puncture NO ACID FAST BACILLI SEEN 11/15/16 10:46 Mycobacterial Culture Resulted Cerebral Spinal Fluid Lumbar Puncture Pending Vitals/IOs Vital Signs Date Time Temp Pulse Resp B/P Pulse Ox O2 Delivery O2 Flow Rate FiO2 11/18/16 05:29 97.5 100 18 119/72 97 Intake and Output 11/17/16 11/17/16 11/18/16 08:00 16:00 00:00 Intake Total 1110 ml 200 ml Balance 1110 ml 200 ml Assessment & Plan Problem List: (1) Catatonia ICD Code: F06.1 (2) Unspecified psychosis ICD Code: F29 Assessment & Plan Estimated LOS: days patient continues to show signs of catatonia that appears to somewhat intermittent and there is some improved occasional responses. For now continue treatment Justification for Cont. Inpt. At this time patient will decompensate if placed in a lower level of care Discharge Planning To be determined Request HC Surrog/Guard Advoc?: Yes Ravi Roman MD November 18, 2016 13:01
[2016-11-18 19:30] VITALS: BP 109/60; PULSE 100; RESP 16; TEMP 97.7; O2SAT 97
[2016-11-19] MEDS: LORazepam 2 MG/ML VIAL IM SCH ×4 (01:30→20:00)
[2016-11-19] MEDS: FREE WATER G-TUBE SCH ×5 (05:33→22:58)
[2016-11-19] MEDS: PROPRANOLOL HCL 20 MG TAB PO SCH ×3 (05:35→22:00)
[2016-11-19 05:36] VITALS: BP 111/66; PULSE 93; RESP 16; O2SAT 99
[2016-11-19 07:04] LABS: BICARBONATE 28.6 MEQ/L (21.0-32.0); POTASSIUM 3.9 MEQ/L (3.5-5.1)
[2016-11-19] MEDS: ZIPRASIDONE HCL 60 MG CAP PO SCH (09:12)
[2016-11-19 09:37] LABS: INDIRECT BILIRUBIN 0.1 MG/DL (0.0-0.8); TOTAL BILIRUBIN ADULT 0.2 MG/DL (0.2-1.0)
--- NOTE | 2016-11-19 11:03 | HHI.PR ---
Subjective Remarks Follow up paranoid schizophrenia, catatonia, and tachycardia. Patient seen and examined today. Continues to appear anxious with bradykinesia, flat affect, hypoverbal. As per nursing, patient has improved by mouth intake with encouragement. Continues to have energy with Jevity at goal for nutritional support. Patient able speak some words today. Appears comfortable. Objective Vitals Vital Signs Date Time Temp Pulse Resp B/P Pulse Ox O2 Delivery O2 Flow Rate FiO2 11/19/16 05:36 93 16 111/66 99 11/18/16 19:30 97.7 100 16 109/60 97 I/O 11/18/16 11/18/16 11/18/16 11/19/16 11/19/16 11/19/16 07:00 15:00 23:00 07:00 15:00 23:00 Intake Total 1420 ml Balance 1420 ml Intake Oral 960 ml Tube Feeding 460 ml # Voids 2 # Bowel Movements 0 Result Diagram: 11/19/16 0613 Imaging Last Impressions Abdomen X-Ray 11/16/16 0000 Signed Impressions: Service Date/Time: Wednesday, November 16, 2016 12:48 - CONCLUSION: Distal radiopaque tip of the Dobbhoff catheter is in the fundus of the stomach. Florencio Leslie MD Chest CT 11/15/16 0000 Signed Impressions: Service Date/Time: November 11:20 - CONCLUSION: 1. Unremarkable CT chest. 2. No infiltrate or mass. Prieto Rock MD Abdomen/Pelvis CT 11/15/16 0000 Signed Impressions: Service Date/Time: November 11:13 - CONCLUSION: Normal examination. Rolando Nuñez MD Lumbar Puncture Fluoroscopy 11/14/16 0000 Signed Impressions: Service Date/Time: November 10:46 - CONCLUSION: Uncomplicated fluoroscopically guided lumbar puncture. Florencio Leslie MD Brain MRI 11/09/16 0000 Signed Impressions: Service Date/Time: Wednesday, November 09, 2016 13:26 - CONCLUSION: 1. Small amount of fluid within the sphenoid sinus. The examination is otherwise unremarkable. Bi Berg MD Head CT 11/08/16 0000 Signed Impressions: Service Date/Time: November 18:15 - CONCLUSION: Normal examination. Ravi Ace MD Lower Extremity Ultrasound 11/07/16 0000 Signed Impressions: Service Date/Time: Monday, November 07, 2016 10:57 - CONCLUSION: No evidence of deep venous thrombosis within the lower extremities. Philippe Menendez MD Objective Remarks GENERAL: pt. is a well-developed patient, NAD. Awake. SKIN: No rashes, ecchymoses or lesions. Warm and dry. HEAD: Atraumatic. Normocephalic. EOMI. CARDIOVASCULAR: Tachycardia without murmurs, gallops, or rubs. RESPIRATORY: CTA. Breath sounds equal bilaterally. No wheezes, rales, or rhonchi. GASTROINTESTINAL: Abdomen soft, nondistended. Bowel sounds hypoactive. NGT Dobbhoff in place MUSCULOSKELETAL: Extremities without clubbing, cyanosis, or edema. NEUROLOGICAL: Awake and alert. No rigidity but slow bradykinetic movements noted. Some verbalization. Moves all extremities. Procedures 11/15/16 Lumbar Puncture 11/16/16 Dobhoff placement A/P Problem List: (1) Schizophrenia, paranoid type ICD Code: F20.0 Status: Acute (2) Unspecified psychosis ICD Code: F29 Status: Acute (3) Tachycardia ICD Code: R00.0 Status: Acute (4) Hypokalemia ICD Code: E87.6 Status: Acute Assessment and Plan Patient is a 21-year-old white female with no known primary medical history who came in to the hospital from [facility] under [place] act secondary to being belligerent at home, acting out raking things and making suicidal statements. As per record, questionable smoking K2 as per nursing staff at [facility]. The patient also refused to give urine specimen for test. 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 Patient is now admitted to inpatient psychiatry unit for further evaluation. Consulted for medical management, tachycardia. Psychosis, paranoid schizophrenia - Management by psychiatry team - CT scan and neurology consult requested by primary team - r/o organic cause of AMS ? - CT scan normal - seen in consultation by Neurology - MRI brain normal, EEG normal. Plan for LP. Follow-up results - ESR and CRP within normal, RPR and HIV within normal. - Continues to be exhibiting catatonia with minimal movement and no verbalization. Might be a candidate for ECT. - Neurology consulted input appreciated. CSF normal, encephalitis antibodies may take 2-3 weeks for results. As per neuro, consider per psychiatric presentation. - Lumbar puncture done today. - CT of the abdomen and pelvis normal examination - CT of the chest unremarkable CT chest. No infiltrate or mass. - As per staff, psychiatrist spoke with father for possible ECT treatment. - Able to verbalize some words today during exam Tachycardia - Most likely related to paranoia and anxiety,increase Propranolol 20mg Q8hrs. - elevated HR may be due in part to dehydration given poor po intake, encourage fluids/increased po intake. Ensure shakes. - TSH WNL - normal white count, afebrile - continue to monitor HR - off IVF - Improving Poor by mouth intake Weight loss - Continue to encourage by mouth fluid intake - Ensure shakes - Patient continues to have poor by mouth intake, unable to meet caloric needs. Dobbhoff placed. - NGT feedings, Dobbhoff placement for short-term nutritional support. If patient continues to not meet caloric intake, recommend for PEG placement. - Dietary consult recommend tube feedings Jevity 1.5 goal of 50 ML's an hour. Tolerating. - Monitor for aspiration. HLD 30, patient out of bed to chair sitting up. Possible neuroleptic malignant syndrome, with positive muscle rigidity, elevated total creatine kinase and CK, tachycardia, and catatonia. - Total creatinine kinase needs hydration. CK 162 --> 342 - Discussed with Dr. Marie - likely not NMS. - No appreciable muscle rigidity or tremors noted. - Monitor closely. - PO flushes Hypokalemia - resolved BLE pain/discomfort - Bilateral US to r/o DVT negative DVT prophylaxis: encourage ambulation. Discussed with patient, nursing, Mary Prather November 19, 2016 11:03
--- NOTE | 2016-11-19 11:44 | HHI.PYPN ---
Subjective Remarks Patient seen today for psychiatric evaluation with nurse Mani and oncology social worker Latrice, patient seems to be quite sedated this morning, minimally cooperative, not engageable in the interview, she answers some of our questions by nodding, as per nurses patient did much better during the week and, she was more talkative, more focused, answering appropriately to questions, she had a good interaction with family members, was able to eat solid foods without any problem. Patient has been compliant with her medications. Review of Systems Other No somatic complaints Objective Alert: Yes [place]: Person, Place, Date Mood: Calm Affect: Flat, Blunted Memory Intact: Comment (Not formally assessed) Hallucinations: Other (remains internally stimulated) Delusions: Yes Delusion Type: Other (not elicited at this time) Suicidal: Ideation (no SI) Homicidal: Ideation (no HI) Insight/Judgment Poor Labs Test 11/19/16 06:13 Sodium Level 140 MEQ/L Potassium Level 3.9 MEQ/L Chloride Level 104 MEQ/L Carbon Dioxide Level 28.6 MEQ/L Anion Gap 7 MEQ/L Blood Urea Nitrogen 10 MG/DL Creatinine 0.64 MG/DL Estimat Glomerular Filtration 118 ML/MIN Rate Random Glucose 104 MG/DL Calcium Level 9.3 MG/DL Total Bilirubin 0.2 MG/DL Direct Bilirubin 0.1 MG/DL Indirect Bilirubin 0.1 MG/DL Aspartate Amino Transf 26 U/L (AST/SGOT) Alanine Aminotransferase 36 U/L (ALT/SGPT) Alkaline Phosphatase 70 U/L Total Creatine Kinase 342 U/L Creatine Kinase MB 6.0 NG/ML Creatine Kinase MB % 1.8 % Total Protein 6.9 GM/DL Albumin 3.7 GM/DL Prealbumin 28 MG/DL Date/Time Procedure Status Source Growth 11/15/16 10:46 Gram Stain - Final Complete Cerebral Spinal Fluid Lumbar Puncture 11/15/16 10:46 CSF Culture - Final Complete Cerebral Spinal Fluid Lumbar Puncture NO GROWTH IN 72 HOURS 11/15/16 10:46 Acid Fast Stain - Final Resulted Cerebral Spinal Fluid Lumbar Puncture NO ACID FAST BACILLI SEEN 11/15/16 10:46 Mycobacterial Culture Resulted Cerebral Spinal Fluid Lumbar Puncture Pending Vitals/IOs Vital Signs Date Time Temp Pulse Resp B/P Pulse Ox O2 Delivery O2 Flow Rate FiO2 11/19/16 05:36 93 16 111/66 99 11/18/16 19:30 97.7 Intake and Output 11/18/16 11/18/16 11/18/16 07:59 15:59 23:59 Intake Total 1420 ml Balance 1420 ml Assessment & Plan Problem List: (1) Catatonia ICD Code: F06.1 (2) Unspecified psychosis Assessment & Plan: Patient seems to be oversedated, will decrease Geodon to 40 mg twice a day. ICD Code: F29 Assessment & Plan Estimated LOS: days Justification for Cont. Inpt. Patient will decompensate at a lower level of care. Request HC Surrog/Guard Advoc?: Yes Damian Marie MD November 19, 2016 11:44
[2016-11-19 17:16] VITALS: BP 112/64; PULSE 94; RESP 16; TEMP 97.6; O2SAT 100
[2016-11-19] MEDS: ZIPRASIDONE HCL 40 MG CAP PO SCH (18:00)
[2016-11-20] MEDS: LORazepam 2 MG/ML VIAL IM SCH ×4 (02:00→20:00)
[2016-11-20] MEDS: FREE WATER G-TUBE SCH ×3 (06:00→17:29)
[2016-11-20] MEDS: PROPRANOLOL HCL 20 MG TAB PO SCH ×3 (06:00→21:20)
[2016-11-20] MEDS: ZIPRASIDONE HCL 40 MG CAP PO SCH (08:49)
[2016-11-20] MEDS ORDERED: MEMANTINE HCL 5 MG TAB PO SCH (10:15)
[2016-11-20] MEDS: ARIPiprazole 2 MG TAB PO SCH ×2 (10:15→21:00)
--- NOTE | 2016-11-20 10:34 | HHI.PYPN ---
Subjective Remarks Patient seen today for psychiatric reevaluation along with rounding the medical team, patient continues to be catatonic, with pronounced negativism, autism, waxy flexibility, echopraxia. Patient is minimally responsive, she might at times respond with a yes or not, but continues to have a prominent blocking thought and poverty of speech. She has some moments of lucidity and more flexible movement, but she usually returns to catatonia. She has improve her oral intake, she has been compliant with oral medications. Review of Systems Other Catatonia Objective Alert: Yes [place]: Person Mood: Oppositional Affect: Flat, Blunted Memory Intact: Comment (Not formally assessed) Hallucinations: Other (remains internally stimulated) Delusions: Yes Delusion Type: Other (not elicited at this time) Suicidal: Ideation (no SI) Homicidal: Ideation (no HI) Insight/Judgment Poor Labs Date/Time Procedure Status Source Growth 11/15/16 10:46 Gram Stain - Final Complete Cerebral Spinal Fluid Lumbar Puncture 11/15/16 10:46 CSF Culture - Final Complete Cerebral Spinal Fluid Lumbar Puncture NO GROWTH IN 72 HOURS 11/15/16 10:46 Acid Fast Stain - Final Resulted Cerebral Spinal Fluid Lumbar Puncture NO ACID FAST BACILLI SEEN 11/15/16 10:46 Mycobacterial Culture Resulted Cerebral Spinal Fluid Lumbar Puncture Pending Vitals/IOs Vital Signs Date Time Temp Pulse Resp B/P Pulse Ox O2 Delivery O2 Flow Rate FiO2 11/19/16 17:16 97.6 94 16 112/64 100 Assessment & Plan Problem List: (1) Catatonia Assessment & Plan: So far patient has shown a very modest response to psychotropics. Catatonia seems to be refractory to benzodiazepines. We will cross titrate Geodon with Abilify, we will decrease Geodon to 20 mg twice a day , we'll start Abilify at 2 mg twice a day, since Abilify is just a partial dopaminergic agonist and could be beneficial in treating the catatonia and also psychosis. Also will add Ambien 5 mg at bedtime to increase AMOR and will start Nemenda 5 mg to decrease Glutamate system and try to help with catatonia. Will call her father to explain this changes and to discuss the potential need of ECT in case psychotropics keep failing. ICD Code: F06.1 (2) Unspecified psychosis ICD Code: F29 Assessment & Plan Estimated LOS: days Justification for Cont. Inpt. Patient continues to be acutely catatonic/psychotic and will be unable to take care of herself at a lower level of care Request HC Surrog/Guard Advoc?: Yes Damian Marie MD November 20, 2016 10:34
--- NOTE | 2016-11-20 11:27 | HHI.PR ---
Subjective Remarks Follow up paranoid schizophrenia, catatonia, and tachycardia. Patient seen and examined today. Continues to have bradykinesia, catatonic features. Only 1 word that was stated was "hello." Appears to be anxious. Continue with tube feedings. Objective Vitals Vital Signs Date Time Temp Pulse Resp B/P Pulse Ox O2 Delivery O2 Flow Rate FiO2 11/19/16 17:16 97.6 94 16 112/64 100 I/O 11/19/16 11/19/16 11/19/16 11/20/16 11/20/16 11/20/16 06:59 14:59 22:59 06:59 14:59 22:59 Intake Total 120 ml Balance 120 ml Intake Oral 120 ml Result Diagram: 11/19/16 0613 Objective Remarks GENERAL: pt. is a well-developed patient, NAD. Awake. SKIN: No rashes, ecchymoses or lesions. Warm and dry. HEAD: Atraumatic. Normocephalic. EOMI. CARDIOVASCULAR: Tachycardia without murmurs, gallops, or rubs. RESPIRATORY: CTA. Breath sounds equal bilaterally. No wheezes, rales, or rhonchi. GASTROINTESTINAL: Abdomen soft, nondistended. Bowel sounds hypoactive. NGT Dobbhoff in place MUSCULOSKELETAL: Extremities without clubbing, cyanosis, or edema. NEUROLOGICAL: Awake and alert. No rigidity but slow bradykinetic movements noted. Some verbalization. Moves all extremities. Procedures 11/15/16 Lumbar Puncture 11/16/16 Dobhoff placement A/P Problem List: (1) Schizophrenia, paranoid type ICD Code: F20.0 Status: Acute (2) Unspecified psychosis ICD Code: F29 Status: Acute (3) Tachycardia ICD Code: R00.0 Status: Acute (4) Hypokalemia ICD Code: E87.6 Status: Acute Assessment and Plan Patient is a 21-year-old white female with no known primary medical history who came in to the hospital from [facility] under De La Torre act secondary to being belligerent at home, acting out raking things and making suicidal statements. As per record, questionable smoking K2 as per nursing staff at [facility]. The patient also refused to give urine specimen for test. 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 Patient is now admitted to inpatient psychiatry unit for further evaluation. Consulted for medical management, tachycardia. Psychosis, paranoid schizophrenia - Management by psychiatry team - CT scan and neurology consult requested by primary team - r/o organic cause of AMS ? - CT scan normal - seen in consultation by Neurology - MRI brain normal, EEG normal. Plan for LP. Follow-up results - ESR and CRP within normal, RPR and HIV within normal. - Continues to be exhibiting catatonia with minimal movement and no verbalization. Might be a candidate for ECT. - Neurology consulted input appreciated. CSF normal, encephalitis antibodies may take 2-3 weeks for results. As per neuro, consider per psychiatric presentation. - Lumbar puncture done today. - CT of the abdomen and pelvis normal examination - CT of the chest unremarkable CT chest. No infiltrate or mass. - As per staff, psychiatrist spoke with father for possible ECT treatment. - Spoke with Dr. Mc, patient may need placement for ECT he will speak with the family. Tachycardia - Most likely related to paranoia and anxiety,increase Propranolol 20mg Q8hrs. - elevated HR may be due in part to dehydration given poor po intake, encourage fluids/increased po intake. Ensure shakes. - TSH WNL - normal white count, afebrile - continue to monitor HR - off IVF - Improving Poor by mouth intake Weight loss - Continue to encourage by mouth fluid intake - Ensure shakes - Patient continues to have poor by mouth intake, unable to meet caloric needs. Dobbhoff placed. - NGT feedings, Dobbhoff placement for short-term nutritional support. If patient continues to not meet caloric intake, recommend for PEG placement. - Dietary consult recommend tube feedings Jevity 1.5 goal of 50 ML's an hour. Tolerating. - Monitor for aspiration. HLD 30, patient out of bed to chair sitting up. Possible neuroleptic malignant syndrome, with positive muscle rigidity, elevated total creatine kinase and CK, tachycardia, and catatonia. - Total creatinine kinase needs hydration. CK 162 --> 342 - Discussed with Dr. Marie - likely not NMS. - No appreciable muscle rigidity or tremors noted. - Monitor closely. - PO flushes BLE pain/discomfort - Bilateral US to r/o DVT negative DVT prophylaxis: encourage ambulation. Discussed with patient, nursing, Dr. Mc, [facility]. Sh[facility] November 20, 2016 11:27
[2016-11-20] MEDS ORDERED: ZOLPIDEM TARTRATE 5 MG TAB PO ONE (14:15)
[2016-11-20 17:26] VITALS: BP 115/63; PULSE 114; RESP 18; TEMP 98; O2SAT 98
[2016-11-20] MEDS: ZIPRASIDONE HCL 20 MG CAP PO SCH (17:56)
[2016-11-20] MEDS ORDERED: ZOLPIDEM TARTRATE 5 MG TAB PO SCH (21:00)
[2016-11-21] MEDS: LORazepam 2 MG/ML VIAL IM SCH ×4 (02:17→22:03)
[2016-11-21] MEDS: PROPRANOLOL HCL 20 MG TAB PO SCH ×3 (05:39→22:03)
[2016-11-21 05:41] VITALS: BP 134/60; PULSE 109; RESP 15; TEMP 98.9; O2SAT 97
[2016-11-21] MEDS: FREE WATER G-TUBE SCH ×4 (06:00→17:13)
[2016-11-21] MEDS: ARIPiprazole 2 MG TAB PO SCH ×3 (09:00→22:03)
[2016-11-21] MEDS: MEMANTINE HCL 5 MG TAB PO SCH ×2 (09:00→09:20)
[2016-11-21] MEDS: ZIPRASIDONE HCL 20 MG CAP PO SCH (09:19)
[2016-11-21] MEDS ORDERED: ZOLPIDEM TARTRATE 10 MG TAB PO ONE (11:45)
--- NOTE | 2016-11-21 12:20 | HHI.PYPN ---
Subjective Remarks Patient was seen today for psychiatric reevaluation, patient is in her room in [address] unit, she seems to be more engageable in a conversation, more mobile, and less stiff, but still presents negativism, poverty of speech, blocking thought. Patient has been compliant with by mouth medication on and off. At night presents periods of excited catatonia. Review of Systems Other No somatic complaints Objective Alert: Yes [place]: Person Mood: Oppositional Affect: Flat, Blunted Memory Intact: Comment (Not formally assessed) Hallucinations: Other (remains internally stimulated) Delusions: Yes Delusion Type: Other (not elicited at this time) Suicidal: Ideation (no SI) Homicidal: Ideation (no HI) Insight/Judgment Poor Vitals/IOs Vital Signs Date Time Temp Pulse Resp B/P Pulse Ox O2 Delivery O2 Flow Rate FiO2 11/21/16 05:41 98.9 109 15 134/60 97 Intake and Output 11/20/16 11/20/16 11/21/16 08:00 16:00 00:00 Intake Total 120 ml 120 ml Balance 120 ml 120 ml Assessment & Plan Problem List: (1) Catatonia Assessment & Plan: Patient shows and a slightly improvement in her stiffness and waxy flexibility. But continues to show significant negativism, poverty of speech, thought blocking, posturim. We will increase the Ambien to 10 mg at bedtime, will challenge catatonia with 10 mg of Ambien right now. We'll discontinue completely Geodon, continue the rest of the medication at the same dose. ICD Code: F06.1 (2) Unspecified psychosis ICD Code: F29 Assessment & Plan Estimated LOS: days Justification for Cont. Inpt. Patient continues to be catatonic/psychotic and needs to continue inpatient level of care Request HC Surrog/Guard Advoc?: Yes Damian Marie MD November 21, 2016 11:43
--- NOTE | 2016-11-21 13:50 | HHI.PR ---
Subjective Remarks Follow-up visit catatonia, Poor nutrition. Patient seen and evaluated. As per nursing, Dobbhoff tube has been clamped. Ordered for a new placement of the NGT was done and x-ray was also done for placement verification. Patient is awake and alert. Does not follow any commands. Hypoverbal. Appears comfortable. Objective Vitals Vital Signs Date Time Temp Pulse Resp B/P Pulse Ox O2 Delivery O2 Flow Rate FiO2 11/21/16 05:41 98.9 109 15 134/60 97 11/20/16 17:26 98.0 114 18 115/63 98 I/O 11/20/16 11/20/16 11/20/16 11/21/16 11/21/16 11/21/16 07:00 15:00 23:00 07:00 15:00 23:00 Intake Total 240 ml Balance 240 ml Intake Oral 240 ml # Voids 1 Result Diagram: 11/19/16 0613 Imaging Last Impressions Abdomen X-Ray 11/21/16 0000 Signed Impressions: Service Date/Time: Monday, November 21, 2016 12:43 - CONCLUSION: 1. Nasogastric tube in the stomach August Roach MD Chest CT 11/15/16 0000 Signed Impressions: Service Date/Time: November 11:20 - CONCLUSION: 1. Unremarkable CT chest. 2. No infiltrate or mass. Prieto Rock MD Abdomen/Pelvis CT 11/15/16 0000 Signed Impressions: Service Date/Time: November 11:13 - CONCLUSION: Normal examination. Rolando Nuñez MD Lumbar Puncture Fluoroscopy 11/14/16 0000 Signed Impressions: Service Date/Time: November 10:46 - CONCLUSION: Uncomplicated fluoroscopically guided lumbar puncture. Florencio Leslie MD Brain MRI 11/09/16 0000 Signed Impressions: Service Date/Time: Wednesday, November 09, 2016 13:26 - CONCLUSION: 1. Small amount of fluid within the sphenoid sinus. The examination is otherwise unremarkable. Bi Berg MD Head CT 11/08/16 0000 Signed Impressions: Service Date/Time: November 18:15 - CONCLUSION: Normal examination. Ravi Ace MD Lower Extremity Ultrasound 11/07/16 0000 Signed Impressions: Service Date/Time: Monday, November 07, 2016 10:57 - CONCLUSION: No evidence of deep venous thrombosis within the lower extremities. Philippe Menendez MD Objective Remarks GENERAL: pt. is a well-developed patient, NAD. Awake. SKIN: Facial acne, no ecchymoses or lesions. Warm and dry. HEAD: Atraumatic. Normocephalic. EOMI. CARDIOVASCULAR: Tachycardia without murmurs, gallops, or rubs. RESPIRATORY: CTA. Breath sounds equal bilaterally. No wheezes, rales, or rhonchi. GASTROINTESTINAL: Abdomen soft, nondistended. Bowel sounds hypoactive. NGT in place MUSCULOSKELETAL: Extremities without clubbing, cyanosis, or edema. NEUROLOGICAL: Awake and alert. No rigidity but slow bradykinetic movements noted. Hypoverbal. Moves all extremities. Procedures 11/15/16 Lumbar Puncture 11/16/16 Dobhoff placement A/P Problem List: (1) Schizophrenia, paranoid type ICD Code: F20.0 Status: Acute (2) Unspecified psychosis ICD Code: F29 Status: Acute (3) Tachycardia ICD Code: R00.0 Status: Acute (4) Hypokalemia ICD Code: E87.6 Status: Acute Assessment and Plan Patient is a 21-year-old white female with no known primary medical history who came in to the hospital from [facility] under De La Torre act secondary to being belligerent at home, acting out raking things and making suicidal statements. As per record, questionable smoking K2 as per nursing staff at [facility]. The patient also refused to give urine specimen for test. 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 Patient is now admitted to inpatient psychiatry unit for further evaluation. Consulted for medical management, tachycardia. Psychosis, paranoid schizophrenia - Management by psychiatry team - CT scan and neurology consult requested by primary team - r/o organic cause of AMS ? - CT scan normal - seen in consultation by Neurology - MRI brain normal, EEG normal. Plan for LP. Follow-up results - ESR and CRP within normal, RPR and HIV within normal. - Continues to be exhibiting catatonia with minimal movement and no verbalization. Might be a candidate for ECT. - Neurology consulted input appreciated. CSF normal, encephalitis antibodies may take 2-3 weeks for results. As per neuro, consider per psychiatric presentation. - Lumbar puncture done today. - CT of the abdomen and pelvis normal examination - CT of the chest unremarkable CT chest. No infiltrate or mass. - As per staff, psychiatrist spoke with father for possible ECT treatment. - Medication adjustment from psychiatry continues for psych management Tachycardia - Most likely related to paranoia and anxiety,increase Propranolol 20mg Q8hrs. - elevated HR may be due in part to dehydration given poor po intake, encourage fluids/increased po intake. Ensure shakes. - TSH WNL - normal white count, afebrile - continue to monitor HR - off IVF - Improving Poor by mouth intake Weight loss - Continue to encourage by mouth fluid intake - Ensure shakes - Patient continues to have poor by mouth intake, unable to meet caloric needs. Dobbhoff placed. - NGT feedings, placement for short-term nutritional support. New tube placement. - Dietary consult recommend tube feedings Jevity 1.5 goal of 50 ML's an hour. Tolerating. - Monitor for aspiration. HLD 30, patient out of bed to chair sitting up. - If patient continues to not meet caloric intake, recommend for PEG placement. Consult GI on Saturday for possible PEG placement if patient continues to have poor PO intake. Possible neuroleptic malignant syndrome, with positive muscle rigidity, elevated total creatine kinase and CK, tachycardia, and catatonia. - Total creatinine kinase needs hydration. CK 162 --> 342 - Discussed with Dr. Marie - likely not NMS. - No appreciable muscle rigidity or tremors noted. - Monitor closely. - PO flushes Constipation - Mag citrate. If patient, continues to have no BM Will do ENEMA. BLE pain/discomfort - Bilateral US to r/o DVT negative DVT prophylaxis: encourage ambulation. Discussed with patient, nursing, Mary Prather November 21, 2016 13:50
--- NOTE | 2016-11-21 14:04 | RADRPT ---
EXAM DATE/TIME: 11/21/2016 12:43 [place] COMPARISON: ABDOMEN SINGLE VIEW, November 16, 2016, 12:48. INDICATIONS : NG tube placement. MEDICAL HISTORY : None. SURGICAL HISTORY : None. ENCOUNTER: Subsequent ACUITY: 1 day PAIN SCORE: Non-responsive. LOCATION: Abdomen. FINDINGS: The bowel gas pattern appears normal. No free air is identified. No organomegaly is evident. A nasoga stric tube is in place with its tip in the stomach. CONCLUSION: 1. Nasogastric tube in the stomach August Roach MD on November 21, 2016 at 13:56 Board Certified Radiologist. This report was verified electronically.
[2016-11-21] MEDS ORDERED: MAGNESIUM CITRATE SOLN 300 ML BTL PO ONE (15:00)
[2016-11-21] MEDS ORDERED: SOD PHOSPHATE/SOD BIPHOSPHATE (ADULT) ENEMA 133ML RECTAL PRN (15:45)
[2016-11-21 16:00] VITALS: RESP 15; TEMP 99; O2SAT 97
[2016-11-21] MEDS: LORazepam 2 MG TAB PO PRN (16:00)
[2016-11-21 16:10] VITALS: BP 119/75; PULSE 108
[2016-11-21] MEDS: ZOLPIDEM TARTRATE 5 MG TAB PO SCH (22:04)
[2016-11-22] MEDS: ACETAMINOPHEN 325 MG TAB PO PRN (01:14)
[2016-11-22 01:15] VITALS: BP 97/56; PULSE 99; RESP 16; TEMP 100.3; O2SAT 97
[2016-11-22] MEDS: LORazepam 2 MG/ML VIAL IM SCH ×4 (02:00→20:00)
[2016-11-22 03:45] VITALS: RESP 16; TEMP 98.6
[2016-11-22] MEDS: PROPRANOLOL HCL 20 MG TAB PO SCH ×3 (06:00→21:37)
[2016-11-22] MEDS: FREE WATER G-TUBE SCH ×4 (06:00→18:00)
[2016-11-22 06:38] VITALS: BP 109/66; PULSE 93; RESP 17; TEMP 98.8
[2016-11-22 07:15] LABS: AUTOMATED NEUTROPHIL # 5.5 TH/MM3 (1.8-7.7); BASOPHIL % 0.6 % (0.0-2.0); EOSINOPHIL # 0.3 TH/MM3 (0-0.4); EOSINOPHIL % 3.1 % (0.0-4.0); HEMATOCRIT 39.8 % (35.0-46.0); HEMO FLAGS DIFF FINAL; LYMPH % 21.2 % (9.0-44.0); LYMPHOCYTE # 1.7 TH/MM3 (1.0-4.8); MEAN CELL VOLUME 90.7 FL (80.0-100.0); MEAN CORPUSCULAR HEMOGLOBIN 30.9 PG (27.0-34.0); MONO % 7.4 % (0.0-8.0); NEUT % 67.7 % (16.0-70.0); PLATELET COUNT 256 TH/MM3 (150-450); RED BLOOD COUNT 4.38 MIL/MM3 (4.00-5.30); RED CELL DISTRIBUTION WIDTH 13.4 % (11.6-17.2); WHITE BLOOD COUNT 8.1 TH/MM3 (4.0-11.0)
[2016-11-22 07:36] LABS: BICARBONATE 30.5 MEQ/L (21.0-32.0)
[2016-11-22] MEDS ORDERED: SOD PHOSPHATE/SOD BIPHOSPHATE (ADULT) ENEMA 133ML RECTAL ONE (08:15)
[2016-11-22] MEDS: ARIPiprazole 2 MG TAB PO SCH (09:00)
[2016-11-22] MEDS: MEMANTINE HCL 5 MG TAB PO SCH (09:11)
[2016-11-22] MEDS ORDERED: MEMANTINE HCL 10 MG TAB PO ONE (09:15)
[2016-11-22] MEDS ORDERED: LORazepam 2 MG/ML VIAL IV PUSH STA (09:15)
--- NOTE | 2016-11-22 09:32 | HHI.PYPN ---
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 However, negativism, blocking thought, restricted affect, poverty of speech, alogia still persist. As per nursing staff last night patient had moments of "few logical works", was more mobile and took all her by mouth medications.. Review of Systems Other No somatic complaints Objective Alert: Yes [place]: Person Mood: Other ("ok") Affect: Flat, Blunted Memory Intact: Comment (Not formally assessed) Hallucinations: Other (remains internally stimulated) Delusions: No Delusion Type: Other (not elicited at this time) Suicidal: Ideation (no SI) Homicidal: Ideation (no HI) Insight/Judgment Poor Labs Test 11/22/16 06:34 White Blood Count 8.1 TH/MM3 Red Blood Count 4.38 MIL/MM3 Hemoglobin 13.5 GM/DL Hematocrit 39.8 % Mean Corpuscular Volume 90.7 FL Mean Corpuscular Hemoglobin 30.9 PG Mean Corpuscular Hemoglobin 34.0 % Concent Red Cell Distribution Width 13.4 % Platelet Count 256 TH/MM3 Mean Platelet Volume 8.6 FL Neutrophils (%) (Auto) 67.7 % Lymphocytes (%) (Auto) 21.2 % Monocytes (%) (Auto) 7.4 % Eosinophils (%) (Auto) 3.1 % Basophils (%) (Auto) 0.6 % Neutrophils # (Auto) 5.5 TH/MM3 Lymphocytes # (Auto) 1.7 TH/MM3 Monocytes # (Auto) 0.6 TH/MM3 Eosinophils # (Auto) 0.3 TH/MM3 Basophils # (Auto) 0.0 TH/MM3 CBC Comment DIFF FINAL Differential Comment Sodium Level 141 MEQ/L Potassium Level 4.0 MEQ/L Chloride Level 102 MEQ/L Carbon Dioxide Level 30.5 MEQ/L Anion Gap 9 MEQ/L Blood Urea Nitrogen 15 MG/DL Creatinine 0.65 MG/DL Estimat Glomerular Filtration 116 ML/MIN Rate Random Glucose 92 MG/DL Calcium Level 9.7 MG/DL Vitals/IOs Vital Signs Date Time Temp Pulse Resp B/P Pulse Ox O2 Delivery O2 Flow Rate FiO2 11/22/16 06:38 98.8 93 17 109/66 11/22/16 01:15 97 Intake and Output 11/21/16 11/21/16 11/22/16 08:00 16:00 00:00 Intake Total 330 ml 220 ml Balance 330 ml 220 ml Assessment & Plan Problem List: (1) Catatonia Assessment & Plan: To the psychiatric evaluation signs of catatonia slightly improved. Patient can follow verbal command, move her arms and legs, she has a started to eat a little bit, is is mildly more often, doesn't seem to be as stiff as the last days. However, psychomotor retardation, mild waxy flexibility , flat affect, thought blocking, negativism, poverty of speech still persist. Will order routine labs Try to engage patient in physical activity Ativan 2 mg every 6 hours for catatonia. We'll continue trial of Namenda 10 mg and Ambien 10 mg daily to help with refractory catatonia. Will increase Abilify to 5 mg twice a day to help with catatonia and psychosis Even though the patient has shown to a modest response to current psychotropic regimen, I feel that she would benefit of ECT. ICD Code: F06.1 (2) Unspecified psychosis ICD Code: F29 Assessment & Plan Estimated LOS: days Justification for Cont. Inpt. Patient is acutely psychotic/catatonic and needs to continue psychiatric hospitalization for stabilization Request HC Surrog/Guard Advoc?: Yes Damian Marie MD November 22, 2016 09:32
[2016-11-22 11:25] VITALS: BP 113/69; PULSE 101
--- NOTE | 2016-11-22 14:30 | HHI.PR ---
Subjective Remarks Follow-up visit catatonia, Poor nutrition. Patient seen and evaluated. Awake and alert. Attempts to verbalize but continues to be hypoverbal. Continues to have bradykinesia. Continues to have flat affect. NGT in place with tube feeds. As per nursing, patient 25% of meals. Appears comfortable. Objective Vitals Vital Signs Date Time Temp Pulse Resp B/P Pulse Ox O2 Delivery O2 Flow Rate FiO2 11/22/16 11:25 101 113/69 11/22/16 06:38 98.8 93 17 109/66 11/22/16 03:45 98.6 16 11/22/16 01:15 100.3 99 16 97/56 97 11/21/16 16:10 108 119/75 11/21/16 16:00 99.0 15 97 I/O 11/21/16 11/21/16 11/21/16 11/22/16 11/22/16 11/22/16 07:00 15:00 23:00 07:00 15:00 23:00 Intake Total 550 ml 760 ml 60 ml Balance 550 ml 760 ml 60 ml Intake Oral 220 ml 560 ml 60 ml Oral Supplement 200 ml Tube Feeding 330 ml # Voids 1 2 Result Diagram: 11/22/16 0634 11/22/16 0634 Imaging Last Impressions Abdomen X-Ray 11/21/16 0000 Signed Impressions: Service Date/Time: Monday, November 21, 2016 12:43 - CONCLUSION: 1. Nasogastric tube in the stomach August Roach MD Chest CT 11/15/16 0000 Signed Impressions: Service Date/Time: November 11:20 - CONCLUSION: 1. Unremarkable CT chest. 2. No infiltrate or mass. Prieto Rock MD Abdomen/Pelvis CT 11/15/16 0000 Signed Impressions: Service Date/Time: November 11:13 - CONCLUSION: Normal examination. Rolando Nuñez MD Lumbar Puncture Fluoroscopy 11/14/16 Signed Impressions: Service Date/Time: November 10:46 - CONCLUSION: Uncomplicated fluoroscopically guided lumbar puncture. Florencio Leslie MD Brain MRI 11/09/16 Signed Impressions: Service Date/Time: Wednesday, November 09, 2016 13:26 - CONCLUSION: 1. Small amount of fluid within the sphenoid sinus. The examination is otherwise unremarkable. Bi Berg MD Head CT 11/08/16 0000 Signed Impressions: Service Date/Time: November 18:15 - CONCLUSION: Normal examination. Ravi Ace MD Lower Extremity Ultrasound 11/07/16 0000 Signed Impressions: Service Date/Time: Monday, November 07, 2016 10:57 - CONCLUSION: No evidence of deep venous thrombosis within the lower extremities. Philippe Menendez MD Objective Remarks GENERAL: pt. is a well-developed patient, NAD. Awake. SKIN: Facial acne, no ecchymoses or lesions. Warm and dry. HEAD: Atraumatic. Normocephalic. EOMI. CARDIOVASCULAR: Tachycardia without murmurs, gallops, or rubs. RESPIRATORY: CTA. Breath sounds equal bilaterally. No wheezes, rales, or rhonchi. GASTROINTESTINAL: Abdomen soft, nondistended. Bowel sounds hypoactive. NGT in place MUSCULOSKELETAL: Extremities without clubbing, cyanosis, or edema. NEUROLOGICAL: Awake and alert. No rigidity but slow bradykinetic movements noted. Hypoverbal. Moves all extremities. Procedures 11/15/16 Lumbar Puncture 11/16/16 Dobhoff placement A/P Problem List: (1) Schizophrenia, paranoid type ICD Code: F20.0 Status: Acute (2) Unspecified psychosis ICD Code: F29 Status: Acute (3) Tachycardia ICD Code: R00.0 Status: Acute (4) Hypokalemia ICD Code: E87.6 Status: Acute Assessment and Plan Patient is a 21-year-old white female with no known primary medical history who came in to the hospital from [facility] under De La Torre act secondary to being belligerent at home, acting out raking things and making suicidal statements. As per record, questionable smoking K2 as per nursing staff at [facility]. The patient also refused to give urine specimen for test. 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 Patient is now admitted to inpatient psychiatry unit for further evaluation. Consulted for medical management, tachycardia. Psychosis, paranoid schizophrenia - Management by psychiatry team - CT scan and neurology consult requested by primary team - r/o organic cause of AMS ? - CT scan normal - seen in consultation by Neurology - MRI brain normal, EEG normal. Plan for LP. Follow-up results - ESR and CRP within normal, RPR and HIV within normal. - Continues to be exhibiting catatonia with minimal movement and no verbalization. Might be a candidate for ECT. - Neurology consulted input appreciated. CSF normal, encephalitis antibodies may take 2-3 weeks for results. As per neuro, consider per psychiatric presentation. - Lumbar puncture done today. - CT of the abdomen and pelvis normal examination - CT of the chest unremarkable CT chest. No infiltrate or mass. - As per staff, psychiatrist spoke with father for possible ECT treatment. - Medication adjustment from psychiatry continues for psych management Tachycardia - Most likely related to paranoia and anxiety,increase Propranolol 20mg Q8hrs. - elevated HR may be due in part to dehydration given poor po intake, encourage fluids/increased po intake. Ensure shakes. - TSH WNL - normal white count, afebrile - continue to monitor HR - off IVF - Improving Poor by mouth intake Weight loss - Continue to encourage by mouth fluid intake - Ensure shakes - Patient continues to have poor by mouth intake, unable to meet caloric needs. Dobbhoff placed. - NGT feedings, placement for short-term nutritional support. New tube placement. - Dietary consult recommend tube feedings Jevity 1.5 goal of 50 ML's an hour. Tolerating. - Monitor for aspiration. HLD 30, patient out of bed to chair sitting up. - If patient continues to not meet caloric intake, recommend for PEG placement. Consult GI for possible PEG placement if patient continues to have poor PO intake. Possible neuroleptic malignant syndrome, with positive muscle rigidity, elevated total creatine kinase and CK, tachycardia, and catatonia. - Total creatinine kinase needs hydration. CK 162 --> 342 - Discussed with Dr. Marie - likely not NMS. - No appreciable muscle rigidity or tremors noted. - Monitor closely. - PO flushes Constipation - Mag citrate. If patient, continues to have no BM Will do ENEMA. BLE pain/discomfort - Bilateral US to r/o DVT negative DVT prophylaxis: encourage ambulation. Discussed with patient, nursing, Mary Prakash November 22, 2016 14:30
[2016-11-22 17:51] VITALS: BP 113/66; PULSE 102; RESP 18; TEMP 98.2; O2SAT 98
[2016-11-22] MEDS: ZOLPIDEM TARTRATE 5 MG TAB PO SCH (21:20)
[2016-11-22] MEDS: ARIPiprazole 5 MG TAB PO SCH (21:21)
[2016-11-23] MEDS: LORazepam 2 MG/ML VIAL IM SCH ×4 (02:00→20:00)
[2016-11-23 05:44] VITALS: BP 119/59; PULSE 123; RESP 16; TEMP 99.7; O2SAT 98
[2016-11-23] MEDS: PROPRANOLOL HCL 20 MG TAB PO SCH ×3 (05:51→21:24)
[2016-11-23] MEDS: FREE WATER G-TUBE SCH ×4 (06:00→18:00)
[2016-11-23] MEDS ORDERED: ZOLPIDEM TARTRATE 10 MG TAB PO ONE ×2 (08:30→13:30)
[2016-11-23] MEDS: ARIPiprazole 5 MG TAB PO SCH ×2 (08:54→21:00)
[2016-11-23] MEDS: MEMANTINE HCL 5 MG TAB PO SCH (08:54)
--- NOTE | 2016-11-23 12:00 | HHI.PYPN ---
Subjective Remarks Patient was seen today for psychiatric reevaluation, patient is sitting in a chair having her hair done by sitter. She is alert, much more verbal today, less oppositional, she is able to answer briefly, usually in monosyllabic and bisyllabic fashion most of our questions. Patient is oriented 3, she was able to say who was the material specialist, she is a smiling very often, she was able to verbalize that she has throat pain, was able to show a wider range of affect, doesn't seem to be as stiff as yesterday. However, psychomotor retardation, waxy flexibility, negativism, poverty of speech, slowed thought processes still persist. Davis&Macho scale today is 10 compare with 35 exactly a week ago. Review of Systems Ears, nose, mouth, throat: COMPLAINS OF: Throat pain Objective Alert: Yes [place]: Person, Place, Date Mood: Other ("ok") Affect: Flat, Blunted Memory Intact: Comment (Not formally assessed) Hallucinations: Other (remains internally stimulated) Delusions: No Delusion Type: Other (not elicited at this time) Suicidal: Ideation (no SI) Homicidal: Ideation (no HI) Insight/Judgment poor Vitals/IOs Vital Signs Date Time Temp Pulse Resp B/P Pulse Ox O2 Delivery O2 Flow Rate FiO2 11/23/16 05:44 99.7 123 16 119/59 98 Intake and Output 11/22/16 11/22/16 11/23/16 08:00 16:00 00:00 Intake Total 820 ml 180 ml Balance 820 ml 180 ml Assessment & Plan Problem List: (1) Catatonia Assessment & Plan: Patient today shows significant improvement in her catatonia after given and a stat dose of Ambien 10 mg. Davis&Macho scale today is 10 compare with 35 exactly a week ago. Which presumes a significant improvement in catatonic symptoms. However, despite her improvement, ECT treatment would be a great option. If catatonia persists with present the patient in [place] for involuntary ECT, since family has been opposed to this modality of treatment. We will increase Ambien 10 mg to twice per day. Continue Ativan 2 mg IM every 6 hours for catatonic symptoms. The patient improved her by mouth intake, would consider to switch to Ativan by mouth. Continue Namenda 10 mg to help with catatonia, NMDA antagosnims can help GABAergic drugs. 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 Inpt. Patient continues to be acutely psychotic/catatonic needing acute inpatient level of care Request HC Surrog/Guard Advoc?: Yes Damian Marie MD November 23, 2016 12:00
[2016-11-23 12:34] VITALS: BP 116/71; PULSE 100
--- NOTE | 2016-11-23 15:22 | HHI.PR ---
Subjective Remarks Follow-up visit catatonia, poor nutrition, tachycardia. Patient seen and examined today. Hypoverbal but aide states she has spoken more today. Complains of sore throat. No cough. (+)Low grade temp. NGT in place with tube feedings. Eating pleasure foods per nursing staff. No BM today. Objective Vitals Vital Signs Date Time Temp Pulse Resp B/P Pulse Ox O2 Delivery O2 Flow Rate FiO2 11/23/16 12:34 100 116/71 11/23/16 05:44 99.7 123 16 119/59 98 11/22/16 17:51 98.2 102 18 113/66 98 I/O 11/22/16 11/22/16 11/22/16 11/23/16 11/23/16 11/23/16 07:00 15:00 23:00 07:00 15:00 23:00 Intake Total 760 ml 60 ml 180 ml 1260 ml 360 ml Balance 760 ml 60 ml 180 ml 1260 ml 360 ml Intake Oral 560 ml 60 ml 180 ml 360 ml 360 ml Oral Supplement 200 ml Tube Feeding 600 ml Other 300 ml # Voids 2 4 Result Diagram: 11/22/16 0634 11/22/16 0634 Imaging Last Impressions Abdomen X-Ray 11/21/16 0000 Signed Impressions: Service Date/Time: Monday, November 21, 2016 12:43 - CONCLUSION: 1. Nasogastric tube in the stomach August Roach MD Chest CT 11/15/16 0000 Signed Impressions: Service Date/Time: November 11:20 - CONCLUSION: 1. Unremarkable CT chest. 2. No infiltrate or mass. Prieto oRck MD Abdomen/Pelvis CT 11/15/16 0000 Signed Impressions: Service Date/Time: November 11:13 - CONCLUSION: Normal examination. Rolando Nuñez MD Lumbar Puncture Fluoroscopy 11/14/16 0000 Signed Impressions: Service Date/Time: November 10:46 - CONCLUSION: Uncomplicated fluoroscopically guided lumbar puncture. Florencio Leslie MD Brain MRI 11/09/16 0000 Signed Impressions: Service Date/Time: Wednesday, November 09, 2016 13:26 - CONCLUSION: 1. Small amount of fluid within the sphenoid sinus. The examination is otherwise unremarkable. Bi Berg MD Head CT 11/08/16 0000 Signed Impressions: Service Date/Time: November 18:15 - CONCLUSION: Normal examination. Ravi Ace MD Lower Extremity Ultrasound 11/07/16 0000 Signed Impressions: Service Date/Time: Monday, November 07, 2016 10:57 - CONCLUSION: No evidence of deep venous thrombosis within the lower extremities. Philippe Menendez MD Objective Remarks GENERAL: Well-nourished, well-developed patient INAD. Awake. Sitting in chair in community room. Hypoverbal. SKIN: No rashes, ecchymoses or lesions. Warm and dry. HEENT: Atraumatic. Normocephalic. EOMI. Dry mucosa with whitish coating on tongue. CARDIOVASCULAR: Tachycardia without murmurs, gallops, or rubs. RESPIRATORY: CTA. Breath sounds equal bilaterally. No wheezes, rales, or rhonchi. GASTROINTESTINAL: Abdomen soft, nondistended. Bowel sounds hypoactive. Patient winces with palpation over her lower abdomen/suprapubic area. MUSCULOSKELETAL: Extremities without clubbing, cyanosis, or edema. Calves are supple bilaterally. NEUROLOGICAL: Awake and alert. No rigidity but slow bradykinetic movements noted. Verbalizing occasionally. Moves all extremities. Procedures 11/15/16 Lumbar Puncture 11/16/16 Dobhoff placement Medications and IVs Current Medications Medications (Trade) Dose Ordered Sig/Tien Route Start Time Stop Time Status Last Admin (Milk Of Magnesia Liq) 30 ml Q6H PRN PO 10/28/16 15:00 11/17/16 21:04 (Benadryl) 50 mg Q6H PRN PO 10/29/16 17:00 11/09/16 15:01 (Benadryl Inj) 50 mg Q6H PRN IM 10/29/16 17:00 11/13/16 05:20 (Tylenol) 650 mg Q4H PRN PO 10/29/16 17:00 11/22/16 01:14 (Ativan) 2 mg Q6H PRN PO 10/31/16 17:00 11/21/16 16:00 (Zofran Inj) 4 mg Q8HR PRN IV PUSH 11/01/16 13:30 (Inderal) 20 mg Q8HR PO 11/11/16 14:00 11/23/16 05:51 (NS Flush) 2 ml UNSCH PRN IV FLUSH 11/12/16 14:15 (Free Water) VOLUME: 100 ML Q6HR G-TUBE 11/17/16 12:00 11/23/16 12:00 (Ativan Inj) 2 mg Q6H IM 11/20/16 14:00 11/23/16 14:09 (Namenda) 10 mg DAILY PO 11/21/16 09:00 11/23/16 08:54 (Ambien) 10 mg HS PO 11/21/16 21:00 11/22/16 21:20 (Fleets Enema (Adult)) 133 ml UNSCH PRN RECTAL 11/21/16 15:45 11/22/16 08:49 (Abilify) 5 mg BID PO 11/22/16 21:00 11/23/16 08:54 A/P Problem List: (1) Schizophrenia, paranoid type ICD Code: F20.0 Status: Acute (2) Unspecified psychosis ICD Code: F29 Status: Acute (3) Tachycardia ICD Code: R00.0 Status: Acute (4) Hypokalemia ICD Code: E87.6 Status: Acute Assessment and Plan Patient is a 21-year-old white female with no known primary medical history who came in to the hospital from [facility] under [place] secondary to being belligerent at home, acting out raking things and making suicidal statements. As per record, questionable smoking K2 as per nursing staff at [facility]. The patient also refused to give urine specimen for test. 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 Patient is now admitted to inpatient psychiatry unit for further evaluation. Consulted for medical management, tachycardia. Psychosis, paranoid schizophrenia - Management by psychiatry team - CT scan and neurology consult requested by primary team - r/o organic cause of AMS ? - CT scan normal - seen in consultation by Neurology - MRI brain normal, EEG normal. s/p LP. Follow-up results. - ESR and CRP within normal, RPR and HIV within normal. - Continues to be exhibiting catatonia with minimal movement and no verbalization. Might be a candidate for ECT. - Neurology consulted input appreciated. CSF normal, encephalitis antibodies may take 2-3 weeks for results. As per neuro, consider per psychiatric presentation. - CT of the abdomen and pelvis normal examination - CT of the chest unremarkable CT chest. No infiltrate or mass. - As per staff, psychiatrist spoke with father for possible ECT treatment. - Medication adjustment from psychiatry continues for psych management - Now on Ativan 2mg IM q6h, Ambien 10mg BID, Namenda 10mg and Abilify 5mg BID Tachycardia - Most likely related to paranoia and anxiety,increase Propranolol 20mg Q8hrs. - elevated HR may be due in part to dehydration given poor po intake, encourage fluids/increased po intake. Ensure shakes. - TSH WNL - continue to monitor HR Poor by mouth intake Weight loss - Continue to encourage by mouth fluid intake - Ensure shakes - Patient continues to have poor by mouth intake, unable to meet caloric needs. Dobbhoff placed. - NGT feedings, placement for short-term nutritional support. New tube placement. - Dietary consult recommend tube feedings Jevity 1.5 goal of 50 ML's an hour - change to nighttime feedings to encourage po intake during the day - Monitor for aspiration. HLD 30, patient out of bed to chair sitting up. - If patient continues to not meet caloric intake, recommend for PEG placement. Consult GI for possible PEG placement if patient continues to have poor PO intake. Possible neuroleptic malignant syndrome, with positive muscle rigidity, elevated total creatine kinase and CK, tachycardia, and catatonia. - Total creatinine kinase needs hydration. CK 162 --> 342 --> todays lab pending - Discussed with Dr. Marie - likely not NMS. - No appreciable muscle rigidity or tremors noted. - Monitor closely. - PO flushes Constipation - Mag citrate. - Bisacodayl suppository DVT prophylaxis: encourage ambulation. Discussed with patient, nursing, Carol Flanagan November 23, 2016 15:22
[2016-11-23] MEDS ORDERED: BISACODYL 10 MG SUPP RECTAL ONE (16:00)
[2016-11-23 17:43] VITALS: BP 120/73; PULSE 122; RESP 16; TEMP 99; O2SAT 97
[2016-11-23] MEDS: NYSTAT/DIPHENHY/LIDO MOUTHWASH (Adult) 120ML SWISH-SWAL SCH ×2 (18:00→21:00)
[2016-11-23 18:22] LABS: CKMB 3.5 NG/ML (0.5-3.6)
--- NOTE | 2016-11-23 19:03 | HHI.PR ---
Review/Management Diagnosis/Plan: (1) Brief psychotic disorder Plan: mri brain nml eeg nml, no sz activity recs check esr/crp,nh3 level can consider paraneoplastic w/u, ct chest/abd/pelvis but will defer to Dr. 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 (3) Tachycardia Daily Summary 11/14 remains minimally participant, nonverbal subacute psychosis, Specific cause will order ct chest and abdomen as well as CSF data searching for paraneoplastic autoimmune limbic encephalitis 11/16 unchanged, sleepy from meds minimal speech upon awakening CSF normal so far but encephalitis antibodies will take up to 2-3 weeks to be back considering a pure psychiatric presentation, normal mri and eeg, doubt of encephalitis and would continue to pursue psychiatric care 11/23 she is much improved, started verbalizing and more participant csf paraneoplastic antibodies all negative spoke with dr Mitchell please call prn neuro Subjective Subjective Comments No acute events reported No headache No chest pain No dyspnea Active Medications Current Medications Medications (Trade) Dose Ordered Sig/Tien Route Start Time Stop Time Status Last Admin (Milk Of Magnesia Liq) 30 ml Q6H PRN PO 10/28/16 15:00 11/17/16 21:04 (Benadryl) 50 mg Q6H PRN PO 10/29/16 17:00 11/09/16 15:01 (Benadryl Inj) 50 mg Q6H PRN IM 10/29/16 17:00 11/13/16 05:20 (Tylenol) 650 mg Q4H PRN PO 10/29/16 17:00 11/22/16 01:14 (Ativan) 2 mg Q6H PRN PO 10/31/16 17:00 11/21/16 16:00 (Zofran Inj) 4 mg Q8HR PRN IV PUSH 11/01/16 13:30 (Inderal) 20 mg Q8HR PO 11/11/16 14:00 11/23/16 05:51 (NS Flush) 2 ml UNSCH PRN IV FLUSH 11/12/16 14:15 (Free Water) VOLUME: 100 ML Q6HR G-TUBE 11/17/16 12:00 11/23/16 12:00 (Ativan Inj) 2 mg Q6H IM 11/20/16 14:00 11/23/16 14:09 (Namenda) 10 mg DAILY PO 11/21/16 09:00 11/23/16 08:54 (Ambien) 10 mg HS PO 11/21/16 21:00 11/22/16 21:20 (Fleets Enema (Adult)) 133 ml UNSCH PRN RECTAL 11/21/16 15:45 11/22/16 08:49 (Abilify) 5 mg BID PO 11/22/16 21:00 11/23/16 08:54 (Magic Mouthwash Adult Liq) 5 ml QID SWISH-SWAL 11/23/16 18:00 Allergies Allergies Coded Allergies No Known Allergies (Unverified10/17/16) Review of Systems All other ROS: ROS reviewed as documented in chart Exam I&O / VS 11/22/16 11/22/16 11/23/16 15:00 23:00 07:00 Intake Total 60 ml 180 ml 1260 ml Balance 60 ml 180 ml 1260 ml Intake Oral 60 ml 180 ml 360 ml Tube Feeding 600 ml Other 300 ml # Voids 4 Vital Signs Date Time Temp Pulse Resp B/P Pulse Ox O2 Delivery O2 Flow Rate FiO2 11/23/16 17:43 99.0 122 16 120/73 97 11/23/16 12:34 100 116/71 11/23/16 05:44 99.7 123 16 119/59 98 Neurologic: Alert Objective Radiology Results Laboratory Tests Test 11/23/16 17:18 Total Creatine Kinase 445 U/L (26-192) Laboratory Tests Test 11/23/16 17:18 Total Creatine Kinase 445 U/L (26-192) Micro and Labs Laboratory Tests Test 11/23/16 17:18 Total Creatine Kinase 445 Creatine Kinase MB 3.5 Creatine Kinase MB % 0.8 Nitesh Casas MD November 23, 2016 19:03
[2016-11-23] MEDS: ZOLPIDEM TARTRATE 5 MG TAB PO SCH (21:00)
--- NOTE | 2016-11-23 22:12 | RADRPT ---
EXAM DATE/TIME: 11/23/2016 21:48 [facility] COMPARISON: CT THORAX W CONTRAST, November 15, 2016, 11:20. INDICATIONS : Dyspnea. MEDICAL HISTORY : None. SURGICAL HISTORY : None. ENCOUNTER: Initial ACUITY: 3 weeks PAIN SCORE: Non-responsive. LOCATION: Bilateral upper chest FINDINGS: PA and lateral views of the chest demonstrate the lungs to be symmetrically aerated without evidence of mass, infiltrate or effusion. The cardiomediastinal contours are unremarkable. Osseous structure s are intact. There is a nasogastric tube with tip in the distal stomach. CONCLUSION: No evidence of acute cardiopulmonary disease. Ravi Dominguez MD on November 23, 2016 at 22:09 Board Certified Radiologist. This report was verified electronically.
[2016-11-24] MEDS: LORazepam 2 MG/ML VIAL IM SCH ×4 (02:00→21:04)
[2016-11-24] MEDS: FREE WATER G-TUBE SCH ×4 (05:18→16:26)
[2016-11-24 05:27] VITALS: BP 123/78; PULSE 70; RESP 16; TEMP 98.7; O2SAT 96
[2016-11-24] MEDS: PROPRANOLOL HCL 20 MG TAB PO SCH ×3 (05:59→21:03)
[2016-11-24] MEDS: ARIPiprazole 5 MG TAB PO SCH ×2 (08:57→21:00)
[2016-11-24] MEDS: MEMANTINE HCL 5 MG TAB PO SCH (08:57)
[2016-11-24] MEDS: NYSTAT/DIPHENHY/LIDO MOUTHWASH (Adult) 120ML SWISH-SWAL SCH ×4 (09:00→21:09)
[2016-11-24] MEDS ORDERED: ZOLPIDEM TARTRATE 10 MG TAB PO ONE ×2 (09:00→13:30)
--- NOTE | 2016-11-24 11:48 | HHI.PYPN ---
Subjective Remarks Patient was seen and case discussed with nursing. No review from yesterday. Patient is less talkative compared to yesterday. She is difficult to engage in the interview and only managed to say a couple of unrelated words. She said the word mercy and Danielle. Also saying she was nauseous. Per sitter she ate more breakfast today compared to yesterday. Is compliant with her medications. Could not tell me her name or where she is Objective Alert: Yes [place]: Person, Place, Date Mood: Other (would not answer) Affect: Flat Memory Intact: Comment (Not formally assessed) Hallucinations: Other (remains internally stimulated) Delusions: No Delusion Type: Other (not elicited at this time) Suicidal: Ideation (no SI) Homicidal: Ideation (no HI) Insight/Judgment Poor Labs Test 11/23/16 17:18 Total Creatine Kinase 445 U/L Creatine Kinase MB 3.5 NG/ML Creatine Kinase MB % 0.8 % Vitals/IOs Vital Signs Date Time Temp Pulse Resp B/P Pulse Ox O2 Delivery O2 Flow Rate FiO2 11/24/16 05:27 98.7 70 16 123/78 96 Intake and Output 11/23/16 11/23/16 11/24/16 08:00 16:00 00:00 Intake Total 1500 ml 480 ml 840 ml Output Total 1 ml Balance 1500 ml 480 ml 839 ml Assessment & Plan Problem List: (1) Catatonia ICD Code: F06.1 (2) Unspecified psychosis ICD Code: F29 Assessment & Plan Continue current treatment plan Justification for Cont. Inpt. Patient will decompensate in a less restrictive setting Request HC Surrog/Guard Advoc?: Yes Durga Goss DO November 24, 2016 11:48
[2016-11-24 12:14] LABS: CKMB 4.1 NG/ML (0.5-3.6)
[2016-11-24 18:00] VITALS: BP 112/71; PULSE 114; TEMP 99.4; O2SAT 99
[2016-11-24] MEDS: ZOLPIDEM TARTRATE 5 MG TAB PO SCH (21:04)
[2016-11-25] MEDS: LORazepam 2 MG/ML VIAL IM SCH ×4 (02:50→20:00)
[2016-11-25] MEDS: PROPRANOLOL HCL 20 MG TAB PO SCH ×4 (05:40→22:00)
[2016-11-25] MEDS: FREE WATER G-TUBE SCH ×4 (05:40→17:03)
[2016-11-25 05:57] VITALS: BP 105/57; PULSE 94; RESP 16; TEMP 98.6; O2SAT 97
[2016-11-25] MEDS: NYSTAT/DIPHENHY/LIDO MOUTHWASH (Adult) 120ML SWISH-SWAL SCH ×4 (09:00→21:00)
[2016-11-25] MEDS: ARIPiprazole 5 MG TAB PO SCH ×2 (09:09→21:56)
[2016-11-25] MEDS: MEMANTINE HCL 5 MG TAB PO SCH (09:09)
[2016-11-25] MEDS ORDERED: ZOLPIDEM TARTRATE 10 MG TAB PO ONE (12:00)
--- NOTE | 2016-11-25 12:05 | HHI.PYPN ---
Subjective Remarks Patient was seen and case discussed with nursing. Patient remains more interactive with nursing when I'm not present for the interview. With the nurse earlier she was able to lift up her arm by herself when asked to do so and responded minimally. With me she shook my hand but did not speak. She ate 50% of her breakfast. Compliant with medications Objective Alert: Yes [place]: Person Mood: Other (would not answer) Affect: Flat Memory Intact: Comment (Not formally assessed) Hallucinations: Other (remains internally stimulated) Delusions: No Delusion Type: Other (not elicited at this time) Suicidal: Ideation (no SI) Homicidal: Ideation (no HI) Insight/Judgment Poor Labs Test 11/25/16 08:20 Total Creatine Kinase 357 U/L Creatine Kinase MB 2.0 NG/ML Creatine Kinase MB % 0.6 % Vitals/IOs Vital Signs Date Time Temp Pulse Resp B/P Pulse Ox O2 Delivery O2 Flow Rate FiO2 11/25/16 05:57 98.6 94 16 105/57 97 Intake and Output 11/24/16 11/24/16 11/25/16 08:00 16:00 00:00 Intake Total 120 ml 480 ml Balance 120 ml 480 ml Assessment & Plan Problem List: (1) Catatonia ICD Code: F06.1 (2) Unspecified psychosis ICD Code: F29 Assessment & Plan Continue current treatment plan Justification for Cont. Inpt. Patient will decompensate in a less restrictive setting Request HC Surrog/Guard Advoc?: Yes Durga Goss DO November 25, 2016 12:05
--- NOTE | 2016-11-25 16:06 | HHI.PR ---
Subjective Remarks Follow-up visit catatonia, poor nutrition, tachycardia. Patient seen and examined today. Continues to be hypoverbal. Patient gives no response if she has any pain today. Per nursing staff, ate 50% of her breakfast and lunch. NGT in place. Objective Vitals Vital Signs Date Time Temp Pulse Resp B/P Pulse Ox O2 Delivery O2 Flow Rate FiO2 11/25/16 05:57 98.6 94 16 105/57 97 11/24/16 18:00 99.4 114 112/71 99 I/O 11/24/16 11/24/16 11/24/16 11/25/16 11/25/16 11/25/16 07:00 15:00 23:00 07:00 15:00 23:00 Intake Total 120 ml 480 ml 0 ml 480 ml Balance 120 ml 480 ml 0 ml 480 ml Intake Oral 120 ml 480 ml 0 ml 480 ml # Voids 4 1 1 # Bowel Movements 2 Result Diagram: 11/22/16 0634 11/22/16 0634 Objective Remarks GENERAL: Well-nourished, well-developed patient INAD. Awake. Sitting in chair in community room. Hypoverbal. SKIN: No rashes, ecchymoses or lesions. Warm and dry. HEENT: Atraumatic. Normocephalic. EOMI. NGT in place. MMM. CARDIOVASCULAR: Tachycardia without murmurs, gallops, or rubs. RESPIRATORY: CTA. Breath sounds equal bilaterally. No wheezes, rales, or rhonchi. GASTROINTESTINAL: Abdomen soft, nondistended. Bowel sounds hypoactive. Patient winces with palpation over her lower abdomen/suprapubic area. MUSCULOSKELETAL: Extremities without clubbing, cyanosis, or edema. Calves are supple bilaterally. NEUROLOGICAL: Awake and alert. No rigidity but slow bradykinetic movements noted. Verbalizing occasionally. Moves all extremities. Procedures 11/15/16 Lumbar Puncture 11/16/16 Dobhoff placement Medications and IVs Current Medications Medications (Trade) Dose Ordered Sig/Tien Route Start Time Stop Time Status Last Admin (Milk Of Magnesia Liq) 30 ml Q6H PRN PO 10/28/16 15:00 11/17/16 21:04 (Benadryl) 50 mg Q6H PRN PO 10/29/16 17:00 11/09/16 15:01 (Benadryl Inj) 50 mg Q6H PRN IM 10/29/16 17:00 11/13/16 05:20 (Tylenol) 650 mg Q4H PRN PO 10/29/16 17:00 11/22/16 01:14 (Ativan) 2 mg Q6H PRN PO 10/31/16 17:00 11/21/16 16:00 (Zofran Inj) 4 mg Q8HR PRN IV PUSH 11/01/16 13:30 (Inderal) 20 mg Q8HR PO 11/11/16 14:00 11/24/16 21:03 (NS Flush) 2 ml UNSCH PRN IV FLUSH 11/12/16 14:15 (Free Water) VOLUME: 100 ML Q6HR G-TUBE 11/17/16 12:00 11/25/16 12:00 (Ativan Inj) 2 mg Q6H IM 11/20/16 14:00 11/25/16 14:38 (Namenda) 10 mg DAILY PO 11/21/16 09:00 11/25/16 09:09 (Ambien) 10 mg HS PO 11/21/16 21:00 11/24/16 21:04 (Fleets Enema (Adult)) 133 ml UNSCH PRN RECTAL 11/21/16 15:45 11/22/16 08:49 (Abilify) 5 mg BID PO 11/22/16 21:00 11/25/16 09:09 (Magic Mouthwash Adult Liq) 5 ml QID SWISH-SWAL 11/23/16 18:00 11/25/16 12:14 A/P Problem List: (1) Schizophrenia, paranoid type ICD Code: F20.0 Status: Acute (2) Unspecified psychosis ICD Code: F29 Status: Acute (3) Tachycardia ICD Code: R00.0 Status: Acute (4) Hypokalemia ICD Code: E87.6 Status: Resolved Assessment and Plan Patient is a 21-year-old white female with no known primary medical history who came in to the hospital from [facility] under [place] secondary to being belligerent at home, acting out raking things and making suicidal statements. As per record, questionable smoking K2 as per nursing staff at [facility]. The patient also refused to give urine specimen for test. 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 Patient is now admitted to inpatient psychiatry unit for further evaluation. Consulted for medical management, tachycardia. Psychosis, paranoid schizophrenia - Management by psychiatry team - CT scan and neurology consult requested by primary team - r/o organic cause of AMS ? - CT scan normal - seen in consultation by Neurology - MRI brain normal, EEG normal. s/p LP. Follow-up results. - ESR and CRP within normal, RPR and HIV within normal. - Continues to be exhibiting catatonia with minimal movement and no verbalization. Might be a candidate for ECT. - Neurology consulted input appreciated. CSF normal, encephalitis antibodies may take 2-3 weeks for results. As per neuro, consider per psychiatric presentation. - CT of the abdomen and pelvis normal examination - CT of the chest unremarkable CT chest. No infiltrate or mass. - As per staff, psychiatrist spoke with father for possible ECT treatment. - Medication adjustment from psychiatry continues for psych management - Now on Ativan 2mg IM q6h, Ambien 10mg BID, Namenda 10mg and Abilify 5mg BID Tachycardia - Most likely related to paranoia and anxiety,increase Propranolol 20mg Q8hrs. - elevated HR may be due in part to dehydration given poor po intake, encourage fluids/increased po intake. Ensure shakes. - HR currently 94 - TSH WNL - continue to monitor HR Poor by mouth intake Weight loss - Continue to encourage by mouth fluid intake - Ensure shakes - Patient continues to have poor by mouth intake, unable to meet caloric needs. Dobbhoff placed. - NGT feedings, placement for short-term nutritional support. New tube placement. - Dietary consult recommend tube feedings Jevity 1.5 goal of 50 ML's an hour - change to nighttime feedings to encourage po intake during the day. - Improved today eating 50% of her meals. Reconsult data science and iot manager to assist with transitioning to oral intake. - Monitor for aspiration. HLD 30, patient out of bed to chair sitting up. - If patient continues to not meet caloric intake, recommend for PEG placement. Consult GI for possible PEG placement if patient continues to have poor PO intake. Possible neuroleptic malignant syndrome, with positive muscle rigidity, elevated total creatine kinase and CK, tachycardia, and catatonia. - Total creatinine kinase needs hydration. CK 162 --> 342 --> 445 --> 533 -- > 357 - Discussed with Dr. Marie - likely not NMS. - No appreciable muscle rigidity or tremors noted. - Monitor closely. Constipation - (+)BM - continue with bowel regimen DVT prophylaxis: encourage ambulation. Discussed with patient, nursing, Carol Flanagan November 25, 2016 16:05
[2016-11-25 20:09] VITALS: BP 109/67; PULSE 118; RESP 18; TEMP 99.4; O2SAT 96
[2016-11-25] MEDS: DOCUSATE SODIUM 100 MG CAP PO SCH (21:56)
[2016-11-25] MEDS: ZOLPIDEM TARTRATE 5 MG TAB PO SCH (21:56)
[2016-11-25] MEDS: ACETAMINOPHEN 325 MG TAB PO PRN (22:03)
[2016-11-26] MEDS: LORazepam 2 MG/ML VIAL IM SCH ×4 (02:00→21:19)
[2016-11-26] MEDS: FREE WATER G-TUBE SCH ×4 (05:44→18:00)
[2016-11-26] MEDS: PROPRANOLOL HCL 20 MG TAB PO SCH ×3 (05:44→21:19)
[2016-11-26 06:41] VITALS: BP 105/55; PULSE 102; RESP 18; TEMP 98.4; O2SAT 99
[2016-11-26] MEDS ORDERED: ZOLPIDEM TARTRATE 10 MG TAB PO ONE (08:15)
--- NOTE | 2016-11-26 08:18 | HHI.PYPN ---
Subjective Remarks Patient was seen for psychiatric reevaluation in the day room of the 2500 unit. Patient is sitting down in a chair, staring, psychomotor retarded, kind of rigid and stuporous. Patient continues to show difficulties communicating, with marked blocking thought and difficulties finding words. However, she is smiles more often, can follow simple commands, at times she mumbles some words, she has been eating about 50% of her food. As per nurses, during the weekend patient had moments of improved interaction, better communication with staff, but also had moments of prolonged mutism and pronounced psychomotor retardation and stiffness. Patient seems to respond positively to Ambien challenges. I communicated with family members about the importance to pursue ECT due to lack of response to psychotropics, they were open to this possibility. Her mother and her brother seems to be in agreement with this modality of treatment, but her father is the one hesitating. Review of Systems Other No somatic complaints Objective Alert: Yes [place]: Person Mood: Other (would not answer) Affect: Flat Memory Intact: Comment (Not formally assessed) Hallucinations: Other (remains internally stimulated) Delusions: No Delusion Type: Other (not elicited at this time) Suicidal: Ideation (no SI) Homicidal: Ideation (no HI) Insight/Judgment Poor Labs Test 11/25/16 08:20 Total Creatine Kinase 357 U/L Creatine Kinase MB 2.0 NG/ML Creatine Kinase MB % 0.6 % Vitals/IOs Vital Signs Date Time Temp Pulse Resp B/P Pulse Ox O2 Delivery O2 Flow Rate FiO2 11/26/16 06:41 98.4 102 18 105/55 99 Intake and Output 11/25/16 11/25/16 11/25/16 07:59 15:59 23:59 Intake Total 240 ml 240 ml 720 ml Balance 240 ml 240 ml 720 ml Assessment & Plan Problem List: (1) Catatonia Assessment & Plan: Patient today shows positive improvement in her catatonia after given and a stat dose of Ambien 10 mg. but remains catatonic. We will try again today. Holger 11/22/2016 was 10 compare with 35 on 11/15/2016. Which presumes a significant improvement in catatonic symptoms. However, despite her improvement, ECT treatment would be a great option. If catatonia persists with present the patient [place] for involuntary ECT, since family has been opposed to this modality of treatment. We will increase Ambien 10 mg to twice per day. Continue Ativan 2 mg IM every 6 hours for catatonic symptoms. The patient improved her by mouth intake, would consider to switch to Ativan by mouth. Continue Namenda 10 mg to help with catatonia, NMDA antagosnims can help GABAergic drugs. Continue Abilify 5 mg twice a day for underlying psychosis, and also because Abilify dopaminergic partial antagonism can help with catatonia Neuro Follow up reviewed and appreciated: As per Neuro "is much improved, started verbalizing and more participant csf paraneoplastic antibodies all negative please call prn neuro ICD Code: F06.1 (2) Unspecified psychosis ICD Code: F29 Assessment & Plan Estimated LOS: days Justification for Cont. Inpt. Patient continues to be psychotic/catatonic admits inpatient level of care Request HC Surrog/Guard Advoc?: Yes Damian Marie MD November 26, 2016 08:18
[2016-11-26] MEDS: MEMANTINE HCL 5 MG TAB PO SCH (09:22)
[2016-11-26] MEDS: DOCUSATE SODIUM 100 MG CAP PO SCH ×2 (09:22→21:19)
[2016-11-26] MEDS: ARIPiprazole 5 MG TAB PO SCH ×2 (09:22→21:19)
[2016-11-26] MEDS: NYSTAT/DIPHENHY/LIDO MOUTHWASH (Adult) 120ML SWISH-SWAL SCH ×4 (09:31→21:00)
[2016-11-26 17:00] VITALS: BP 118/78; PULSE 106; RESP 18; TEMP 98.5
[2016-11-26] MEDS: ZOLPIDEM TARTRATE 5 MG TAB PO SCH (21:20)
[2016-11-27] MEDS: LORazepam 2 MG/ML VIAL IM SCH ×4 (01:10→20:46)
[2016-11-27] MEDS: PROPRANOLOL HCL 20 MG TAB PO SCH ×3 (05:42→22:00)
[2016-11-27] MEDS: FREE WATER G-TUBE SCH ×4 (05:42→17:30)
[2016-11-27 06:00] VITALS: BP 104/71; PULSE 110; RESP 18; TEMP 98.4; O2SAT 97
[2016-11-27] MEDS ORDERED: ZOLPIDEM TARTRATE 10 MG TAB PO ONE ×2 (08:45→14:30)
[2016-11-27] MEDS: NYSTAT/DIPHENHY/LIDO MOUTHWASH (Adult) 120ML SWISH-SWAL SCH ×4 (09:00→21:00)
[2016-11-27 09:06] LABS: CKMB 1.7 NG/ML (0.5-3.6)
[2016-11-27] MEDS: MEMANTINE HCL 5 MG TAB PO SCH (10:03)
[2016-11-27] MEDS: ARIPiprazole 5 MG TAB PO SCH ×2 (10:03→20:51)
[2016-11-27] MEDS: DOCUSATE SODIUM 100 MG CAP PO SCH ×2 (10:04→20:48)
--- NOTE | 2016-11-27 11:42 | HHI.PR ---
Subjective Remarks Follow-up visit catatonia, poor nutrition, tachycardia. Patient seen and examined today. Patient still hypoverbal. Appears less communicative than she did over the weekend. Had been smiling and performing high fives. Today more stuporous and slow moving. She does indicate tenderness with palpation of abdomen. Discussed with RN - UA still not done and no record of last BM. Patient unable to articulate her last BM. Eating 50% of her meals. NGT in place. Objective Vitals Vital Signs Date Time Temp Pulse Resp B/P Pulse Ox O2 Delivery O2 Flow Rate FiO2 11/27/16 06:00 98.4 110 18 104/71 97 11/26/16 17:00 98.5 106 18 118/78 I/O 11/26/16 11/26/16 11/26/16 11/27/16 11/27/16 11/27/16 07:00 15:00 23:00 07:00 15:00 23:00 Intake Total 1775 ml 360 ml 240 ml Balance 1775 ml 360 ml 240 ml Intake Oral 720 ml 360 ml 240 ml Tube Feeding 655 ml Tube Irrigant 400 ml # Voids 4 2 2 Imaging Last Impressions Chest X-Ray 11/23/16 0000 Signed Impressions: Service Date/Time: Wednesday, November 23, 2016 21:48 - CONCLUSION: No evidence of acute cardiopulmonary disease. Ravi Dominguez MD Abdomen X-Ray 11/21/16 0000 Signed Impressions: Service Date/Time: Monday, November 21, 2016 12:43 - CONCLUSION: 1. Nasogastric tube in the stomach August Roach MD Chest CT 11/15/16 0000 Signed Impressions: Service Date/Time: November 11:20 - CONCLUSION: 1. Unremarkable CT chest. 2. No infiltrate or mass. Prieto Rock MD Abdomen/Pelvis CT 11/15/16 0000 Signed Impressions: Service Date/Time: November 11:13 - CONCLUSION: Normal examination. Rolando Nuñez MD Lumbar Puncture Fluoroscopy 11/14/16 0000 Signed Impressions: Service Date/Time: November 10:46 - CONCLUSION: Uncomplicated fluoroscopically guided lumbar puncture. Florencio Leslie MD Brain MRI 11/09/16 0000 Signed Impressions: Service Date/Time: Wednesday, November 09, 2016 13:26 - CONCLUSION: 1. Small amount of fluid within the sphenoid sinus. The examination is otherwise unremarkable. Bi Berg MD Head CT 11/08/16 0000 Signed Impressions: Service Date/Time: November 18:15 - CONCLUSION: Normal examination. Ravi Ace MD Lower Extremity Ultrasound 11/07/16 0000 Signed Impressions: Service Date/Time: Monday, November 07, 2016 10:57 - CONCLUSION: No evidence of deep venous thrombosis within the lower extremities. Philippe Menendez MD Objective Remarks GENERAL: Well-nourished, well-developed patient INAD. Awake. Sitting in chair in community room. Hypoverbal. SKIN: No rashes, ecchymoses or lesions. Warm and dry. HEENT: Atraumatic. Normocephalic. EOMI. NGT in place. MMM. CARDIOVASCULAR: Tachycardia without murmurs, gallops, or rubs. RESPIRATORY: CTA. Breath sounds equal bilaterally. No wheezes, rales, or rhonchi. GASTROINTESTINAL: Abdomen soft, nondistended. Bowel sounds hypoactive. Patient winces with palpation over her lower abdomen/suprapubic area. MUSCULOSKELETAL: Extremities without clubbing, cyanosis, or edema. Calves are supple bilaterally. NEUROLOGICAL: Awake and alert. No rigidity but slow bradykinetic movements noted. Verbalizing occasionally. Moves all extremities. Procedures 11/15/16 Lumbar Puncture 11/16/16 Dobhoff placement Medications and IVs Current Medications Medications (Trade) Dose Ordered Sig/Tien Route Start Time Stop Time Status Last Admin (Milk Of Magnesia Liq) 30 ml Q6H PRN PO 10/28/16 15:00 11/17/16 21:04 (Benadryl) 50 mg Q6H PRN PO 10/29/16 17:00 11/09/16 15:01 (Benadryl Inj) 50 mg Q6H PRN IM 10/29/16 17:00 11/13/16 05:20 (Tylenol) 650 mg Q4H PRN PO 10/29/16 17:00 11/25/16 22:03 (Ativan) 2 mg Q6H PRN PO 10/31/16 17:00 11/21/16 16:00 (Zofran Inj) 4 mg Q8HR PRN IV PUSH 11/01/16 13:30 (Inderal) 20 mg Q8HR PO 11/11/16 14:00 11/27/16 05:42 (NS Flush) 2 ml UNSCH PRN IV FLUSH 11/12/16 14:15 (Free Water) VOLUME: 100 ML Q6HR G-TUBE 11/17/16 12:00 11/27/16 05:42 (Ativan Inj) 2 mg Q6H IM 11/20/16 14:00 11/27/16 10:04 (Namenda) 10 mg DAILY PO 11/21/16 09:00 11/27/16 10:03 (Ambien) 10 mg HS PO 11/21/16 21:00 11/26/16 21:20 (Fleets Enema (Adult)) 133 ml UNSCH PRN RECTAL 11/21/16 15:45 11/22/16 08:49 (Abilify) 5 mg BID PO 11/22/16 21:00 11/27/16 10:03 (Magic Mouthwash Adult Liq) 5 ml QID SWISH-SWAL 11/23/16 18:00 11/26/16 17:23 (Colace) 100 mg BID PO 11/25/16 21:00 11/27/16 10:04 A/P Problem List: (1) Schizophrenia, paranoid type ICD Code: F20.0 Status: Acute (2) Unspecified psychosis ICD Code: F29 Status: Acute (3) Tachycardia ICD Code: R00.0 Status: Acute (4) Hypokalemia ICD Code: E87.6 Status: Resolved Assessment and Plan Patient is a 21-year-old white female with no known primary medical history who came in to the hospital from [facility] under [place] act secondary to being belligerent at home, acting out raking things and making suicidal statements. As per record, questionable smoking K2 as per nursing staff at [facility]. The patient also refused to give urine specimen for test. 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 Patient is now admitted to inpatient psychiatry unit for further evaluation. Consulted for medical management, tachycardia. Psychosis, paranoid schizophrenia - Management by psychiatry team - CT scan and neurology consult requested by primary team - r/o organic cause of AMS ? - CT scan normal - seen in consultation by Neurology - MRI brain normal, EEG normal. s/p LP. Follow-up results. - ESR and CRP within normal, RPR and HIV within normal. - Continues to be exhibiting catatonia with minimal movement and no verbalization. Might be a candidate for ECT. - Neurology consulted input appreciated. CSF normal, CSF paraneoplastic antibodies all negative. Per neuro, please call prn. - CT of the abdomen and pelvis normal examination - CT of the chest unremarkable CT chest. No infiltrate or mass. - As per staff, psychiatrist spoke with father for possible ECT treatment. - Medication adjustment from psychiatry continues for psych management - Now on Ativan 2mg IM q6h, Ambien 10mg BID, Namenda 10mg and Abilify 5mg BID Tachycardia - Most likely related to paranoia and anxiety,increase Propranolol 20mg Q8hrs. - elevated HR may be due in part to dehydration given poor po intake, encourage fluids/increased po intake. Ensure shakes. - HR currently 110 - TSH WNL - continue to monitor HR Poor by mouth intake Weight loss - Continue to encourage by mouth fluid intake - Ensure shakes - Patient continues to have poor by mouth intake, unable to meet caloric needs. Dobbhoff placed. - NGT feedings, placement for short-term nutritional support. New tube placement. - Dietary consult recommend tube feedings Jevity 1.5 goal of 50 ML's an hour - change to nighttime feedings to encourage po intake during the day. - Today eating 50% of her meals. [employer] to assist with transitioning to oral intake, appreciate their input/assistance. Nocturnal tube feedings increased by another hour. They will continue to follow. - Monitor for aspiration. HLD 30, patient out of bed to chair sitting up. - If patient continues to not meet caloric intake, recommend for PEG placement. Consult GI for possible PEG placement if patient continues to have poor PO intake. Possible neuroleptic malignant syndrome, with positive muscle rigidity, elevated total creatine kinase and CK, tachycardia, and catatonia. - Total creatinine kinase needs hydration. CK 162 --> 342 --> 445 --> 533 -- > 357 --> 358 - Discussed with Dr. Marie - likely not NMS. - No appreciable muscle rigidity or tremors noted. - Monitor closely. Constipation with complaints of lower abdominal pain - last BM 11/24 - begin Miralax daily - UA ordered but not done. Discussed with nursing staff who will obtain specimen today. - KUB - monitor for BM DVT prophylaxis: encourage ambulation. Discussed with patient, nursing, Carol Flanagan November 27, 2016 11:42
[2016-11-27 12:17] LABS: BACTERIA, URINE OCC /hpf; BLOOD, URINE NEG (NEG); COMMENT (UR) CULT NOT INDICATED; CULTURE IF INDICATED CULT NOT INDICATED; GLUCOSE,URINE NEG (NEG); KETONE, URINE NEG (NEG); MUCUS URINE FEW /lpf (OCC); NITRITE,URINE NEG (NEG); SQUAMOUS EPITHELIAL CELL URINE 1 /hpf (0-5); URINE COLOR YELLOW (YELLW/STRAW)
[2016-11-27] MEDS: POLYETHYLENE GLYCOL 17 GM PKG PO SCH (13:03)
--- NOTE | 2016-11-27 14:03 | RADRPT ---
EXAM DATE/TIME: 11/27/2016 13:47 [facility] COMPARISON: CT ABDOMEN & PELVIS W CONTRAST, November 15, 2016, 11:13. ABDOMEN SINGLE VIEW, November 21, 2016, 12:43. INDICATIONS : Abdominal pain per request. Patient non-verbal. MEDICAL HISTORY : None. SURGICAL HISTORY : None. ENCOUNTER: Subsequent ACUITY: 1 month PAIN SCORE: Non-responsive. LOCATION: abdomen. FINDINGS: Supine frontal view the abdomen demonstrates nasogastric tube tip in the distal stomach. No organomeg lai or abnormal calcifications are seen. Stool is present throughout the colon. Bowel gas pattern is normal. Bones demonstrate no abnormality. CONCLUSION: No acute abdominal abnormality is identified. Ravi Arriola MD on November 27, 2016 at 13:59 Board Certified Radiologist. This report was verified electronically.
[2016-11-27] MEDS: MAGNESIUM HYDROXIDE SUSP 30 ML CUP PO PRN (14:42)
--- NOTE | 2016-11-27 14:46 | HHI.PYPN ---
Subjective Remarks Patient was seen for psychiatric reevaluation in the day room of the 2500 unit along with nurse in charge Yasemin. Patient is sitting down in a chair in the recreational area, she continues to be psychomotor retarded, rigid and stuporous. Patient continues to show difficulties communicating and following complex commands, even though she can follow simple commands with no problem, With marked blocking thought and difficulties finding words. She has show modest improvement in catatonia, smiling more often, at times she mumbles some words, she has been eating about 50% of her food. As per nurses, during the weekend patient had moments of improved interaction, better communication with staff, but also had moments of prolonged mutism and pronounced psychomotor retardation and stiffness. Patient seems to respond positively to Ambien challenges, but hours later returns to catatonic state. I spoke with her father today who is now in agreement with ECT treatment.. Review of Systems Other No somatic complains Objective Alert: Yes [place]: Person Mood: Other (would not answer) Affect: Flat Memory Intact: Comment (Not formally assessed) Hallucinations: Other (remains internally stimulated) Delusions: No Delusion Type: Other (not elicited at this time) Suicidal: Ideation (no SI) Homicidal: Ideation (no HI) Insight/Judgment Poor Labs Test 11/27/16 11/27/16 07:18 11:00 Total Creatine Kinase 358 U/L Creatine Kinase MB 1.7 NG/ML Creatine Kinase MB % 0.5 % Urine Color YELLOW Urine Turbidity CLOUDY Urine pH 7.0 Urine Specific Brent 1.019 Urine Protein TRACE mg/dL Urine Glucose (UA) NEG mg/dL Urine Ketones NEG mg/dL Urine Occult Blood NEG Urine Nitrite NEG Urine Bilirubin NEG Urine Urobilinogen LESS THAN 2.0 MG/DL Urine Leukocyte Esterase MOD Urine RBC 4 /hpf Urine WBC 3 /hpf Urine Squamous Epithelial 1 /hpf Cells Urine Amorphous Sediment FEW Urine Bacteria OCC /hpf Urine Mucus FEW /lpf Microscopic Urinalysis Comment CULT NOT INDICATED Vitals/IOs Vital Signs Date Time Temp Pulse Resp B/P Pulse Ox O2 Delivery O2 Flow Rate FiO2 11/27/16 06:00 98.4 110 18 104/71 97 Intake and Output 11/26/16 11/26/16 11/26/16 07:59 15:59 23:59 Intake Total 1055 ml 360 ml Balance 1055 ml 360 ml Assessment & Plan Problem List: (1) Catatonia Assessment & Plan: Patient shows modest just improvement in her catatonia after given and a stat dose of Ambien 10 mg and Ativan 2 mg IM every 6 hours, but remains catatonic. We will try again today. Holger 11/22/2016 was 10 compare with 35 on 11/15/2016. Which presumes a significant improvement in catatonic symptoms. Will repeat Holger tomorrow. Family members now agree with ECT treatment. Will consult psychiatry for second opinion for ECT. We'll percent the case in [place] next . Continue Namenda 10 mg to help with catatonia, NMDA antagosnims can help GABAergic drugs. Continue Abilify 5 mg twice a day for underlying psychosis, and also because Abilify dopaminergic partial antagonism can help with catatonia Neuro Follow up reviewed and appreciated: As per Neuro "is much improved, started verbalizing and more participant csf paraneoplastic antibodies all negative please call prn neuro ICD Code: F06.1 (2) Unspecified psychosis ICD Code: F29 Assessment & Plan Estimated LOS: days Justification for Cont. Inpt. Patient continues to be psychotic/catatonic and she needs to continue inpatient level of care. Request HC Surrog/Guard Advoc?: Yes Damian Marie MD November 27, 2016 14:46
[2016-11-27 14:52] LABS: BICARBONATE 30.9 MEQ/L (21.0-32.0); MAGNESIUM 2.1 MG/DL (1.5-2.5); POTASSIUM 3.6 MEQ/L (3.5-5.1)
--- NOTE | 2016-11-27 15:50 | PD.CONS ---
Provisional Diagnosis Admission Date Oct 28, 2016 at 14:05 Carmen I. 1. Brief psychotic disorder Rule out first break of primary psychotic disorder like schizophrenia Rule out mood disorder with psychotic features Rule out psychotic disorder related to a general medical condition Carmen II. Deferred Carmen V. GAF is 30 presently History of Present Illness Service Psychiatry Consult Requested By Dr. Mc Reason for Consult Second opinion [place] act for permission for ECT treatment Primary Care Physician Unknown HPI From Dr. Colin's H&P: This is a 21-year-old female who is grossly psychotic and a very poor historian. Apparently she was transferred here from [facility] under a [place] act. She can provide this physician with no information regarding her recent history and when approached, the patient is holding a Bible and stating that she is paranoid she will be strangled. 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 Patient also demonstrates looseness of associations, thought blocking, and is obviously responding to internal stimuli. She is not felt to be competent to make medical or psychiatry decisions regarding her own care. This physician asked social work supervisor to call the patient's mother and social work supervisor has left voice mails but mother has not returned call. The patient did refer to a man in her life as both her boyfriend and and that she needs to go back to him but this is unverified able. She is reclusive on the unit and is not speaking to other patients. Toxicology screen is reportedly negative. On my examination today: Patient seen and examined with counselor and nurse. Chart reviewed. Case discussed in treatment team with counselor and nurse. On my examination today, patient presents as very fearful and internally preoccupied. She is malodorous and disheveled. The patient reports that she is on her menses and so is "reborn." She reports that she has been sleeping quite poorly for the last several weeks and feels "real confused." She does articulate a belief that she is somehow being controlled by another person but says, "I don't wanna talk about it; they just turn things around." Affect is labile. She is non- committal regarding SI/HI. She denies AVH but appears internally preoccupied as I said. She admits that she has been under a lot of stress because of studying for finals. Psychiatric interview is somewhat limited because of patient's degree of psychiatric impairment at present. Past psychiatric history: Patient is likely an unreliable historian but denies any history of psychiatric illness. Family history: Patient reports that her mother has issues with being "explosive " but denies any other family psychiatric history. Chemical dependency history: Patient denies any abuse of drugs or alcohol. 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 She is single with no children. She works part-time at [employer]. Social history is limited because of patient's degree of psychiatric impairment. I have obtained collateral from patient's father, Ravi Singer, over the phone at [phone]: He notes that the patient has no prior psychiatric history and was in her usual state of health until about 2 weeks ago when she began crying at night for no reason. She notes that she broke up with her boyfriend about one week ago. She began "talking strange" and so family called the police and had her [place] acted and sent to [facility]. She was reportedly started on Zyprexa Zydis but this made the patient more confused reportedly. She was subsequently [facility] from [facility] but has once again decompensated. Father notes that patient's mother carries a diagnosis of schizophrenia as well as patient's brother. Brother is reportedly on Zyprexa. Mother is not presently on antipsychotic therapy. Father does not patient is using suspect the patient is abusing substances. I discussed patient's differential diagnosis and treatment plan, and father is in agreement with the plan as presumptive healthcare surrogate. He thanks me for the call. 11/27/16 Patient seen in day room chart reviewed. Patient continues initial catatonic features is markedly selectively mute with me shows significant psychomotor retardation though staff states at times she is somewhat more verbal with them. Dr. Mc and signed first opinion petition requesting ECT. I agree I feel patient is quite psychotic with marked psychomotor retardation and catatonia. Thus I will cosign second opinion petition supporting request for ECT Past Family Social History Coded Allergies: No Known Allergies (Unverified , 10/17/16) Current Medications Medications (Trade) Dose Ordered Sig/Tien Route Start Time Stop Time Status Last Admin (Milk Of Magnesia Liq) 30 ml Q6H PRN PO 10/28/16 15:00 11/27/16 14:42 (Benadryl) 50 mg Q6H PRN PO 10/29/16 17:00 11/09/16 15:01 (Benadryl Inj) 50 mg Q6H PRN IM 10/29/16 17:00 11/13/16 05:20 (Tylenol) 650 mg Q4H PRN PO 10/29/16 17:00 11/25/16 22:03 (Ativan) 2 mg Q6H PRN PO 10/31/16 17:00 11/21/16 16:00 (Zofran Inj) 4 mg Q8HR PRN IV PUSH 11/01/16 13:30 (Inderal) 20 mg Q8HR PO 11/11/16 14:00 11/27/16 14:00 (NS Flush) 2 ml UNSCH PRN IV FLUSH 11/12/16 14:15 (Free Water) VOLUME: 100 ML Q6HR G-TUBE 11/17/16 12:00 11/27/16 12:00 (Ativan Inj) 2 mg Q6H IM 11/20/16 14:00 11/27/16 14:00 (Namenda) 10 mg DAILY PO 11/21/16 09:00 11/27/16 10:03 (Ambien) 10 mg HS PO 11/21/16 21:00 11/26/16 21:20 (Fleets Enema (Adult)) 133 ml UNSCH PRN RECTAL 11/21/16 15:45 11/22/16 08:49 (Abilify) 5 mg BID PO 11/22/16 21:00 11/27/16 10:03 (Magic Mouthwash Adult Liq) 5 ml QID SWISH-SWAL 11/23/16 18:00 11/26/16 17:23 (Colace) 100 mg BID PO 11/25/16 21:00 11/27/16 10:04 (Miralax) 17 gm DAILY PO 11/27/16 11:30 11/27/16 13:03 (Dulcolax Supp) 10 mg DAILY PRN RECTAL 11/27/16 16:00 Patient's Strengths (min. 2) In a monitored setting. Supportive family. Physical Exam Vital Signs Vital Signs Date Time Temp Pulse Resp B/P Pulse Ox O2 Delivery O2 Flow Rate FiO2 11/27/16 06:00 98.4 110 18 104/71 97 I/O 11/26/16 11/26/16 11/26/16 07:59 15:59 23:59 Intake Total 1055 ml 360 ml Balance 1055 ml 360 ml Mental Status Examination Alert selectively mute white female nasogastric tube noted IV noted Appearance Clean neatly Speech: Other (essentially selectively mute) Orientation: Person Memory: Impaired (describe) (difficult to ascertain due to her being catatonic) Thought Process: Other (difficult to ascertain catatonia) Thought Content: Other (difficult to ascertain due to the catatonia) Language Patient selectively mute Fund of Knowledge Low though difficult to ascertain Attention and Concentration: Other (hears poor) Suicidal Ideation: No Previous Suicide Attempts: No (difficult ascertain due to the catatonia) Homicidal Ideation: No Previous Homicide Attempts: No Insight: Poor Judgment: Poor Affect: Other (arc decreased range of motion intensity) Mood: Other (markedly restricted) Motor Activity: Abnormal gait-specify (patient manipulating ambulatory status needing staff assistance) Assessment & Plan Problem List: (1) Catatonia ICD Code: F06.1 (2) Unspecified psychosis ICD Code: F29 Assessment & Plan Estimated LOS: days Request HC Surrog/Guard Advoc?: Yes Ravi Roman MD November 27, 2016 15:50
[2016-11-27] MEDS ORDERED: BISACODYL 10 MG SUPP RECTAL PRN (16:00)
[2016-11-27 18:21] VITALS: BP 100/68; PULSE 100; RESP 10; TEMP 96.5; O2SAT 96
[2016-11-27] MEDS: ACETAMINOPHEN 325 MG TAB PO PRN (20:48)
[2016-11-27] MEDS: ZOLPIDEM TARTRATE 5 MG TAB PO SCH (20:51)
[2016-11-28] MEDS: LORazepam 2 MG/ML VIAL IM SCH ×4 (01:29→20:30)
[2016-11-28] MEDS: FREE WATER G-TUBE SCH ×5 (06:00→23:15)
[2016-11-28] MEDS: PROPRANOLOL HCL 20 MG TAB PO SCH ×3 (06:15→22:29)
[2016-11-28 06:22] VITALS: BP 122/58; PULSE 112; RESP 18; TEMP 97.6; O2SAT 95
[2016-11-28 06:23] VITALS: BP 111/77; PULSE 79; RESP 16; TEMP 97.4
[2016-11-28] MEDS ORDERED: ZOLPIDEM TARTRATE 10 MG TAB PO ONE (08:15)
[2016-11-28] MEDS: NYSTAT/DIPHENHY/LIDO MOUTHWASH (Adult) 120ML SWISH-SWAL SCH ×4 (09:00→20:33)
[2016-11-28] MEDS: DOCUSATE SODIUM 100 MG CAP PO SCH ×2 (09:42→20:30)
[2016-11-28] MEDS: ARIPiprazole 5 MG TAB PO SCH ×2 (09:43→20:30)
[2016-11-28] MEDS: POLYETHYLENE GLYCOL 17 GM PKG PO SCH (09:43)
[2016-11-28] MEDS: MEMANTINE HCL 5 MG TAB PO SCH (09:43)
[2016-11-28] MEDS ORDERED: ZOLPIDEM TARTRATE 10 MG TAB PO STA (12:07)
[2016-11-28] MEDS ORDERED: MEMANTINE HCL 10 MG TAB PO ONE (12:15)
--- NOTE | 2016-11-28 12:21 | HHI.PYPN ---
Subjective Remarks Patient was seen today for psychiatric reevaluation along with nurse in charge Iraida, patient was found sitting in her chair. Poorly cooperative, mumbling some words, no provide much information for the psychiatric evaluation. She answers limitedly some questions, usually with monosyllabic statements "yes or not"most of the time. Patient can follow simple and sometimes two-step commands. She seems to be in contact with external world, she is smiles, she seems to recognize people, she says that she is at [place], she doesn't know the date, but would recognize that the executive coach is Sylvain Triana. Patient continues to have significant waxy flexibility, blocking thought , flat affect, poverty of speech, some echolalia and echopraxia. Elaine&Macho Scale performed today was 24. Review of Systems Gastrointestinal: COMPLAINS OF: Nausea, Vomiting Objective Alert: Yes [place]: Person, Place Mood: Other (would not answer) Affect: Flat Memory Intact: Comment (Not formally assessed) Hallucinations: Other (remains internally stimulated) Delusions: No Delusion Type: Other (not elicited at this time) Suicidal: Ideation (no SI) Homicidal: Ideation (no HI) Insight/Judgment Poor Labs Test 11/27/16 13:56 Sodium Level 138 MEQ/L Potassium Level 3.6 MEQ/L Chloride Level 101 MEQ/L Carbon Dioxide Level 30.9 MEQ/L Anion Gap 6 MEQ/L Blood Urea Nitrogen 10 MG/DL Creatinine 0.65 MG/DL Estimat Glomerular Filtration 116 ML/MIN Rate Random Glucose 111 MG/DL Calcium Level 9.3 MG/DL Phosphorus Level 3.4 MG/DL Magnesium Level 2.1 MG/DL Vitals/IOs Vital Signs Date Time Temp Pulse Resp B/P Pulse Ox O2 Delivery O2 Flow Rate FiO2 11/28/16 06:23 97.4 79 16 111/77 11/28/16 06:22 95 Intake and Output 11/27/16 11/27/16 11/28/16 08:00 16:00 00:00 Intake Total 240 ml 2120 ml 150 ml Balance 240 ml 2120 ml 150 ml Assessment & Plan Problem List: (1) Catatonia Assessment & Plan: Patient shows modest improvement in her catatonia after giving a stat dose of Ambien 10 mg and Ativan 2 mg IM every 6 hours, but remains catatonic. Holger 11/22/2016 was 10 compare with 35 on 11/15/2016. Ryan&Macho today was 24 before Ambien Challenge. Family members now agree with ECT treatment. Dr. Roman consulted for second opinion for ECT, appreciated. Continue Namenda 10 mg to help with catatonia, NMDA antagosnims can help GABAergic drugs. Continue Abilify 5 mg twice a day for underlying psychosis, and also because Abilify dopaminergic partial antagonism can help with catatonia Neuro Follow up reviewed and appreciated: As per Neuro "is much improved, started verbalizing and more participant csf paraneoplastic antibodies all negative please call prn neuro ICD Code: F06.1 (2) Unspecified psychosis ICD Code: F29 Assessment & Plan Estimated LOS: days Justification for Cont. Inpt. Patient continue to be catatonic/psychotic will continue impatient level care. Request HC Surrog/Guard Advoc?: Yes Damian Marie MD November 28, 2016 12:21
[2016-11-28] MEDS: ONDANSETRON HCL 4 MG/2 ML VIAL IV PUSH PRN (12:58)
--- NOTE | 2016-11-28 16:05 | HHI.PR ---
Subjective Remarks As per RN patient nauseous earlier has improved appetite had BM yesterday and today patient responds to some questions Objective Vitals Vital Signs Date Time Temp Pulse Resp B/P Pulse Ox O2 Delivery O2 Flow Rate FiO2 11/28/16 06:23 97.4 79 16 111/77 11/28/16 06:22 97.6 112 18 122/58 95 11/27/16 18:21 96.5 100 10 100/68 96 I/O 11/27/16 11/27/16 11/27/16 11/28/16 11/28/16 11/28/16 07:00 15:00 23:00 07:00 15:00 23:00 Intake Total 2360 ml 150 ml 260 ml 720 ml Balance 2360 ml 150 ml 260 ml 720 ml Intake Oral 2360 ml 150 ml 0 ml 720 ml Tube Irrigant 260 ml # Voids 2 3 1 # Bowel Movements 1 1 Result Diagram: 11/27/16 1356 Imaging Last Impressions Abdomen X-Ray 11/27/16 0000 Signed Impressions: Service Date/Time: Sunday, November 27, 2016 13:47 - CONCLUSION: No acute abdominal abnormality is identified. Ravi Arriola MD Chest X-Ray 11/23/16 0000 Signed Impressions: Service Date/Time: Wednesday, November 23, 2016 21:48 - CONCLUSION: No evidence of acute cardiopulmonary disease. Ravi Dominguez MD Chest CT 11/15/16 0000 Signed Impressions: Service Date/Time: November 11:20 - CONCLUSION: 1. Unremarkable CT chest. 2. No infiltrate or mass. Prieto Rock MD Abdomen/Pelvis CT 11/15/16 0000 Signed Impressions: Service Date/Time: November 11:13 - CONCLUSION: Normal examination. Rolando Nuñez MD Lumbar Puncture Fluoroscopy 11/14/16 0000 Signed Impressions: Service Date/Time: November 10:46 - CONCLUSION: Uncomplicated fluoroscopically guided lumbar puncture. Florencio Leslie MD Brain MRI 11/09/16 0000 Signed Impressions: Service Date/Time: Wednesday, November 09, 2016 13:26 - CONCLUSION: 1. Small amount of fluid within the sphenoid sinus. The examination is otherwise unremarkable. Bi Berg MD Head CT 11/08/16 0000 Signed Impressions: Service Date/Time: November 18:15 - CONCLUSION: Normal examination. Ravi Ace MD Lower Extremity Ultrasound 11/07/16 0000 Signed Impressions: Service Date/Time: Monday, November 07, 2016 10:57 - CONCLUSION: No evidence of deep venous thrombosis within the lower extremities. Philippe Menenedz MD Objective Remarks GENERAL: Well-nourished, well-developed patient INAD. Awake. Sitting in chair in community room. Hypoverbal. SKIN: No rashes, ecchymoses or lesions. Warm and dry. HEENT: Atraumatic. Normocephalic. EOMI. NGT in place. MMM. CARDIOVASCULAR: Tachycardia without murmurs, gallops, or rubs. RESPIRATORY: CTA. Breath sounds equal bilaterally. No wheezes, rales, or rhonchi. GASTROINTESTINAL: Abdomen soft, nondistended. Bowel sounds hypoactive. Patient winces with palpation over her lower abdomen/suprapubic area. MUSCULOSKELETAL: Extremities without clubbing, cyanosis, or edema. Calves are supple bilaterally. NEUROLOGICAL: Awake and alert. No rigidity but slow bradykinetic movements noted. Verbalizing occasionally. Moves all extremities. Procedures 11/15/16 Lumbar Puncture 11/16/16 Dobhoff placement Medications and IVs Current Medications Medications (Trade) Dose Ordered Sig/Tien Route Start Time Stop Time Status Last Admin (Milk Of Wendi Liq) 30 ml Q6H PRN PO 10/28/16 15:00 11/27/16 14:42 (Benadryl) 50 mg Q6H PRN PO 10/29/16 17:00 11/09/16 15:01 (Benadryl Inj) 50 mg Q6H PRN IM 10/29/16 17:00 11/13/16 05:20 (Tylenol) 650 mg Q4H PRN PO 10/29/16 17:00 11/27/16 20:48 (Ativan) 2 mg Q6H PRN PO 10/31/16 17:00 11/21/16 16:00 (Zofran Inj) 4 mg Q8HR PRN IV PUSH 11/01/16 13:30 11/28/16 12:58 (Inderal) 20 mg Q8HR PO 11/11/16 14:00 11/28/16 06:15 (NS Flush) 2 ml UNSCH PRN IV FLUSH 11/12/16 14:15 (Free Water) VOLUME: 100 ML Q6HR G-TUBE 11/17/16 12:00 11/28/16 09:43 (Ativan Inj) 2 mg Q6H IM 11/20/16 14:00 11/28/16 09:43 (Namenda) 10 mg DAILY PO 11/21/16 09:00 11/28/16 09:43 (Ambien) 10 mg HS PO 11/21/16 21:00 11/27/16 20:51 (Fleets Enema (Adult)) 133 ml UNSCH PRN RECTAL 11/21/16 15:45 11/22/16 08:49 (Abilify) 5 mg BID PO 11/22/16 21:00 11/28/16 09:43 (Magic Mouthwash Adult Liq) 5 ml QID SWISH-SWAL 11/23/16 18:00 11/28/16 09:00 (Colace) 100 mg BID PO 11/25/16 21:00 11/28/16 09:42 (Miralax) 17 gm DAILY PO 11/27/16 11:30 11/28/16 09:43 (Dulcolax Supp) 10 mg DAILY PRN RECTAL 11/27/16 16:00 Urinary Catheter: No Vascular Central Line Catheter: No A/P Problem List: (1) Schizophrenia, paranoid type ICD Code: F20.0 Status: Acute (2) Unspecified psychosis ICD Code: F29 Status: Acute (3) Tachycardia ICD Code: R00.0 Status: Acute (4) Hypokalemia ICD Code: E87.6 Status: Resolved Assessment and Plan Patient is a 21-year-old white female with no known primary medical history who came in to the hospital from [facility] under [place] act secondary to being belligerent at home, acting out raking things and making suicidal statements. As per record, questionable smoking K2 as per nursing staff at [facility]. The patient also refused to give urine specimen for test. 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 Patient is now admitted to inpatient psychiatry unit for further evaluation. Consulted for medical management, tachycardia. Psychosis, paranoid schizophrenia - Management by psychiatry team - Head CT normal. - seen in consultation by Neurology - MRI brain normal, EEG normal. s/p LP. Follow-up results. - ESR and CRP within normal, RPR and HIV within normal. - Continues to be exhibiting catatonia with minimal movement and no verbalization. Might be a candidate for ECT. - Neurology consulted input appreciated. CSF normal, CSF paraneoplastic antibodies all negative. Per neuro, please call prn. - CT of the abdomen and pelvis normal examination - CT of the chest unremarkable CT chest. No infiltrate or mass. - As per staff, psychiatrist spoke with father for possible ECT treatment. - Medication adjustment from psychiatry continues for psych management - Now on Ativan 2mg IM q6h, Ambien 10mg BID, Namenda 10mg and Abilify 5mg BID - Discussed case with Dr Marie - Patient responded well to Ambien trial. Family now agrees for ECT treatment. Tachycardia - Most likely related to catatonic state. - Continue to monitor vital signs -TSH within normal limits - continue to monitor HR Poor oral intake Weight loss - Continue to encourage by mouth fluid intake - Ensure shakes - Patient continues to have poor by mouth intake, unable to meet caloric needs. Dobbhoff placed. - NGT feedings, placement for short-term nutritional support. New tube placement. - Dietary consult recommend tube feedings Jevity 1.5 goal of 50 ML's an hour - change to nighttime feedings to encourage po intake during the day. - Today eating 50% of her meals. Master Cosmetologist to assist with transitioning to oral intake, appreciate their input/assistance. Nocturnal tube feedings increased by another hour. They will continue to follow. - Monitor for aspiration. HLD 30, patient out of bed to chair sitting up. - Discussed case with Dr Marie - Will await on Peg placement since appetite is improving and patient is soon possibly going to undergo ECT therapy. Consider Remeron as appetite stimulant. Neuroleptic malignant syndrome ruled out, with positive muscle rigidity, elevated total creatine kinase and CK, tachycardia, and catatonia. - Total creatinine kinase needs hydration. CK 162 --> 342 --> 445 --> 533 -- > 357 --> 358 - Discussed with Dr. Marie - likely not NMS. - No appreciable muscle rigidity or tremors noted. - Monitor closely. Constipation with complaints of lower abdominal pain - Likely due to catatonia. Resolved. Continue Miralax daily. - KUB does not show any acute abnormality DVT prophylaxis: encourage ambulation. Naldo Luo MD November 28, 2016 16:05
[2016-11-28 18:00] VITALS: BP 121/74; PULSE 121; RESP 18; O2SAT 96
[2016-11-28] MEDS: ZOLPIDEM TARTRATE 5 MG TAB PO SCH (20:30)
[2016-11-29] VITALS (8 sets, daily range): BP systolic 104–138; BP diastolic 62–68; PULSE 72–118; RESP 16; TEMP 97.1–98.3; O2SAT 96–98
[2016-11-29] MEDS: LORazepam 2 MG/ML VIAL IM SCH ×4 (02:25→20:36)
[2016-11-29] MEDS: PROPRANOLOL HCL 20 MG TAB PO SCH ×3 (06:00→20:35)
[2016-11-29] MEDS: FREE WATER G-TUBE SCH ×4 (06:00→20:36)
[2016-11-29] MEDS ORDERED: ZOLPIDEM TARTRATE 10 MG TAB PO ONE ×2 (07:45→13:45)
[2016-11-29] MEDS: NYSTAT/DIPHENHY/LIDO MOUTHWASH (Adult) 120ML SWISH-SWAL SCH ×4 (09:00→20:35)
[2016-11-29] MEDS: ARIPiprazole 5 MG TAB PO SCH (09:18)
[2016-11-29] MEDS: MEMANTINE HCL 5 MG TAB PO SCH (09:18)
[2016-11-29] MEDS: POLYETHYLENE GLYCOL 17 GM PKG PO SCH (09:18)
[2016-11-29] MEDS: DOCUSATE SODIUM 100 MG CAP PO SCH ×2 (09:18→20:35)
--- NOTE | 2016-11-29 12:24 | HHI.PR ---
Subjective Remarks Follow-up visit catatonia, poor nutrition, tachycardia. Patient seen and examined today. Patient ate 50% of her breakfast this am. Ate 100% of her dinner last night. She is nonverbal today. Her brother is at the bedside. The family has agreed to ECT treatment. NGT in place. Objective Vitals Vital Signs Date Time Temp Pulse Resp B/P Pulse Ox O2 Delivery O2 Flow Rate FiO2 11/29/16 06:16 97.1 101 16 108/66 98 11/28/16 18:00 121 18 121/74 96 I/O 11/28/16 11/28/16 11/28/16 11/29/16 11/29/16 11/29/16 07:00 15:00 23:00 07:00 15:00 23:00 Intake Total 260 ml 720 ml 480 ml 480 ml Balance 260 ml 720 ml 480 ml 480 ml Intake Oral 0 ml 720 ml 480 ml 480 ml Tube Irrigant 260 ml # Voids 1 1 0 Result Diagram: 11/27/16 1356 Objective Remarks GENERAL: Well-nourished, well-developed patient INAD. Awake. Lying in hospital bed. Hypoverbal. SKIN: No rashes, ecchymoses or lesions. Warm and dry. HEENT: Atraumatic. Normocephalic. EOMI. NGT in place. MMM. CARDIOVASCULAR: Tachycardia without murmurs, gallops, or rubs. RESPIRATORY: CTA. Breath sounds equal bilaterally. No wheezes, rales, or rhonchi. GASTROINTESTINAL: Abdomen soft, nontender, nondistended. Bowel sounds normoactive. MUSCULOSKELETAL: Extremities without clubbing, cyanosis, or edema. Calves are supple bilaterally. NEUROLOGICAL: Awake and alert. No rigidity but slow bradykinetic movements noted. Verbalizing occasionally. Moves all extremities. Procedures 11/15/16 Lumbar Puncture 11/16/16 Dobhoff placement Medications and IVs Current Medications Medications (Trade) Dose Ordered Sig/Tien Route Start Time Stop Time Status Last Admin (Milk Of Magnesia Liq) 30 ml Q6H PRN PO 10/28/16 15:00 11/27/16 14:42 (Benadryl) 50 mg Q6H PRN PO 10/29/16 17:00 11/09/16 15:01 (Benadryl Inj) 50 mg Q6H PRN IM 10/29/16 17:00 11/13/16 05:20 (Tylenol) 650 mg Q4H PRN PO 10/29/16 17:00 11/27/16 20:48 (Ativan) 2 mg Q6H PRN PO 10/31/16 17:00 11/21/16 16:00 (Zofran Inj) 4 mg Q8HR PRN IV PUSH 11/01/16 13:30 11/28/16 12:58 (Inderal) 20 mg Q8HR PO 11/11/16 14:00 11/28/16 22:29 (NS Flush) 2 ml UNSCH PRN IV FLUSH 11/12/16 14:15 (Free Water) VOLUME: 100 ML Q6HR G-TUBE 11/17/16 12:00 11/29/16 06:00 (Ativan Inj) 2 mg Q6H IM 11/20/16 14:00 11/29/16 08:00 (Namenda) 10 mg DAILY PO 11/21/16 09:00 11/29/16 09:18 (Ambien) 10 mg HS PO 11/21/16 21:00 11/28/16 20:30 (Fleets Enema (Adult)) 133 ml UNSCH PRN RECTAL 11/21/16 15:45 11/22/16 08:49 (Abilify) 5 mg BID PO 11/22/16 21:00 11/29/16 09:18 (Magic Mouthwash Adult Liq) 5 ml QID SWISH-SWAL 11/23/16 18:00 11/28/16 09:00 (Colace) 100 mg BID PO 11/25/16 21:00 11/29/16 09:18 (Miralax) 17 gm DAILY PO 11/27/16 11:30 11/29/16 09:18 (Dulcolax Supp) 10 mg DAILY PRN RECTAL 11/27/16 16:00 A/P Problem List: (1) Schizophrenia, paranoid type ICD Code: F20.0 Status: Acute (2) Unspecified psychosis ICD Code: F29 Status: Acute (3) Tachycardia ICD Code: R00.0 Status: Acute (4) Hypokalemia ICD Code: E87.6 Status: Resolved Assessment and Plan Patient is a 21-year-old white female with no known primary medical history who came in to the hospital from [facility] under [place] act secondary to being belligerent at home, acting out raking things and making suicidal statements. As per record, questionable smoking K2 as per nursing staff at [facility]. The patient also refused to give urine specimen for test. 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 Patient is now admitted to inpatient psychiatry unit for further evaluation. Consulted for medical management, tachycardia. Psychosis, paranoid schizophrenia - Management by psychiatry team - CT scan and neurology consult requested by primary team - r/o organic cause of AMS ? - CT scan normal - seen in consultation by Neurology - MRI brain normal, EEG normal. s/p LP. Follow-up results. - ESR and CRP within normal, RPR and HIV within normal. - Continues to be exhibiting catatonia with minimal movement and no verbalization. Discussed with Dr. Marie. Patient is candidate for ECT. Family agreeable. Patient has already been accepted for treatment at facility in [place]. - Neurology consulted input appreciated. CSF normal, CSF paraneoplastic antibodies all negative. Per neuro, please call prn. - CT of the abdomen and pelvis normal examination - CT of the chest unremarkable CT chest. No infiltrate or mass. - As per staff, psychiatrist spoke with father for possible ECT treatment. - Medication adjustment from psychiatry continues for psych management - Now on Ativan 2mg IM q6h, Ambien 10mg BID, Namenda 10mg and Abilify 5mg BID Tachycardia - Most likely related to paranoia and anxiety,increase Propranolol 20mg Q8hrs. - elevated HR may be due in part to dehydration given poor po intake, encourage fluids/increased po intake. Ensure shakes. - HR currently 110 - TSH WNL - continue to monitor HR Poor by mouth intake Weight loss - Continue to encourage by mouth fluid intake - Ensure shakes - Patient continues to have poor by mouth intake, unable to meet caloric needs. Dobbhoff placed. - NGT feedings, placement for short-term nutritional support. New tube placement. - Dietary consult recommend tube feedings Jevity 1.5 goal of 50 ML's an hour - change to nighttime feedings to encourage po intake during the day. - Today eating 50% of her meals. Cut Plug Packer to assist with transitioning to oral intake, appreciate their input/assistance. Nocturnal tube feedings increased by another hour. They will continue to follow. - Monitor for aspiration. HLD 30, patient out of bed to chair sitting up. - Discussed case with Dr Marie - Will await on Peg placement since appetite is improving and patient is soon possibly going to undergo ECT therapy. Consider Remeron as appetite stimulant. - ate 100% of dinner and 50% of breakfast Possible neuroleptic malignant syndrome, with positive muscle rigidity, elevated total creatine kinase and CK, tachycardia, and catatonia. - Total creatinine kinase needs hydration. CK 162 --> 342 --> 445 --> 533 -- > 357 --> 358 - Discussed with Dr. Marie - likely not NMS. - No appreciable muscle rigidity or tremors noted. - Monitor closely. Constipation with complaints of lower abdominal pain - (+)BM yesterday - Likely due to catatonia. Resolved. Continue Miralax daily. - UA negative for UTI - KUB shows only stool t/o the colon DVT prophylaxis: encourage ambulation. Discussed with patient, nursing, Carol Flanagan November 29, 2016 12:24
--- NOTE | 2016-11-29 13:51 | HHI.PYPN ---
Subjective Remarks Patient was seen today for psychiatric reevaluation along with nurse in charge Kitty. Patient was seen in her room, she was laying in her bed, alert, calm , but continues to be limitedly engageable in a conversation. Patient will answer to simple commands, will answer yes or no, she was able to say that she is at [place], she was able to recognize my name, she knows that we are in November 2016. She knows the name of the utility porter. But continues to be catatonic, with significant waxy flexibility, negativism, alogia, poverty of speech, blocking thought. She has been eating at least 50% of her food with help, but will not eat independently. [place] just decided to continue involuntary hospitalization, most probably next week will have an extraordinary hearing for ECT. Review of Systems Other No somatic complaints Objective Alert: Yes [place]: Person, Place Mood: Other (would not answer) Affect: Flat Memory Intact: Comment (Not formally assessed) Hallucinations: Other (remains internally stimulated) Delusions: No Delusion Type: Other (not elicited at this time) Suicidal: Ideation (no SI) Homicidal: Ideation (no HI) Insight/Judgment Poor Vitals/IOs Vital Signs Date Time Temp Pulse Resp B/P Pulse Ox O2 Delivery O2 Flow Rate FiO2 11/29/16 06:16 97.1 101 16 108/66 98 Intake and Output 11/28/16 11/28/16 11/29/16 08:00 16:00 00:00 Intake Total 260 ml 720 ml 480 ml Balance 260 ml 720 ml 480 ml Assessment & Plan Problem List: (1) Catatonia Assessment & Plan: Patient shows modest improvement in her catatonia after challenges of Ambien 10 mg and Ativan 2 mg IM every 6 hours, but remains catatonic. Holger 11/22/2016 was 10 compare with 35 on 11/15/2016. Holger today was 24 before Ambien Challenge. Family members now agree with ECT treatment. Dr. Roman consulted for second opinion for ECT, appreciated. Continue Namenda 10 mg to help with catatonia, NMDA antagosnims can help GABAergic drugs. Increase Abilify to 515mg daily for underlying psychosis, and also because Abilify dopaminergic partial antagonism can help with catatonia Neuro Follow up reviewed and appreciated: As per Neuro "is much improved, started verbalizing and more participant csf paraneoplastic antibodies all negative please call prn neuro ICD Code: F06.1 (2) Unspecified psychosis ICD Code: F29 Assessment & Plan Estimated LOS: days Justification for Cont. Inpt. Patient continues to be psychotic/catatonic and needs inpatient level of care. Request HC Surrog/Guard Advoc?: Yes Damian Marie MD November 29, 2016 13:51
[2016-11-29] MEDS: ZOLPIDEM TARTRATE 5 MG TAB PO SCH (20:35)
[2016-11-30] MEDS: LORazepam 2 MG/ML VIAL IM SCH ×4 (02:51→21:38)
[2016-11-30 02:52] VITALS: PULSE 100
[2016-11-30 05:29] VITALS: PULSE 98
[2016-11-30] MEDS: PROPRANOLOL HCL 20 MG TAB PO SCH ×3 (05:29→21:39)
[2016-11-30] MEDS: FREE WATER G-TUBE SCH ×3 (05:29→17:38)
[2016-11-30 06:00] VITALS: BP 114/62; PULSE 105; RESP 18; TEMP 98; O2SAT 99
[2016-11-30] MEDS: ARIPiprazole 5 MG TAB PO SCH (07:50)
[2016-11-30] MEDS: NYSTAT/DIPHENHY/LIDO MOUTHWASH (Adult) 120ML SWISH-SWAL SCH ×4 (07:51→21:39)
[2016-11-30] MEDS: DOCUSATE SODIUM 100 MG CAP PO SCH ×2 (07:51→21:39)
[2016-11-30] MEDS: POLYETHYLENE GLYCOL 17 GM PKG PO SCH (07:51)
[2016-11-30] MEDS ORDERED: ZOLPIDEM TARTRATE 10 MG TAB PO ONE ×2 (08:00→14:00)
[2016-11-30] MEDS: MEMANTINE HCL 5 MG TAB PO SCH (09:00)
--- NOTE | 2016-11-30 13:30 | HHI.PR ---
Subjective Remarks Follow-up visit catatonia, poor nutrition, tachycardia. Patient seen and examined today. Received 15mg of Ambien this morning. Patient ate about 50% of dinner, 30 % of breakfast and 75% of lunch. She was fed breakfast by her sitter but ate the majority of her lunch on her own. Patient appears more alert today. Responses much improved. Less bradykinesia noted. She is complaining of headache after having her hair braided. Objective Vitals Vital Signs Date Time Temp Pulse Resp B/P Pulse Ox O2 Delivery O2 Flow Rate FiO2 11/30/16 06:00 98.0 105 18 114/62 99 11/30/16 05:29 98 11/30/16 02:52 100 11/29/16 20:30 118 11/29/16 17:41 92 11/29/16 17:24 97 11/29/16 17:22 98.3 115 16 120/68 11/29/16 15:41 104/62 I/O 11/29/16 11/29/16 11/29/16 11/30/16 11/30/16 11/30/16 07:00 15:00 23:00 07:00 15:00 23:00 Intake Total 720 ml 1090 ml 780 ml Balance 720 ml 1090 ml 780 ml Intake Oral 720 ml 940 ml Tube Feeding 150 ml 550 ml Tube Irrigant 230 ml # Voids 0 2 Result Diagram: 11/27/16 1356 Imaging Last Impressions Abdomen X-Ray 11/27/16 0000 Signed Impressions: Service Date/Time: Sunday, November 27, 2016 13:47 - CONCLUSION: No acute abdominal abnormality is identified. Ravi Arriola MD Chest X-Ray 11/23/16 0000 Signed Impressions: Service Date/Time: Wednesday, November 23, 2016 21:48 - CONCLUSION: No evidence of acute cardiopulmonary disease. Ravi Dominguez MD Chest CT 11/15/16 0000 Signed Impressions: Service Date/Time: November 11:20 - CONCLUSION: 1. Unremarkable CT chest. 2. No infiltrate or mass. Prieto Rock MD Abdomen/Pelvis CT 11/15/16 0000 Signed Impressions: Service Date/Time: November 11:13 - CONCLUSION: Normal examination. Rolando Nuñez MD Lumbar Puncture Fluoroscopy 11/14/16 0000 Signed Impressions: Service Date/Time: November 10:46 - CONCLUSION: Uncomplicated fluoroscopically guided lumbar puncture. Florencio Leslie MD Brain MRI 11/09/16 0000 Signed Impressions: Service Date/Time: Wednesday, November 09, 2016 13:26 - CONCLUSION: 1. Small amount of fluid within the sphenoid sinus. The examination is otherwise unremarkable. Bi Berg MD Head CT 11/08/16 0000 Signed Impressions: Service Date/Time: November 18:15 - CONCLUSION: Normal examination. Ravi Ace MD Lower Extremity Ultrasound 11/07/16 Signed Impressions: Service Date/Time: Monday, November 07, 2016 10:57 - CONCLUSION: No evidence of deep venous thrombosis within the lower extremities. Philippe Menendez MD Objective Remarks GENERAL: Well-nourished, well-developed patient INAD. Awake. Lying in her hospital bed. Hypoverbal. SKIN: No rashes, ecchymoses or lesions. Warm and dry. HEENT: Atraumatic. Normocephalic. EOMI. NGT in place. MMM. CARDIOVASCULAR: Tachycardia without murmurs, gallops, or rubs. RESPIRATORY: CTA. Breath sounds equal bilaterally. No wheezes, rales, or rhonchi. GASTROINTESTINAL: Abdomen soft, nontender, nondistended. Bowel sounds normoactive. MUSCULOSKELETAL: Extremities without clubbing, cyanosis, or edema. Calves are supple bilaterally. NEUROLOGICAL: Awake and alert. No rigidity but slow bradykinetic movements noted. Verbalizing occasionally. Moves all extremities. Procedures 11/15/16 Lumbar Puncture 11/16/16 Dobhoff placement Medications and IVs Current Medications Medications (Trade) Dose Ordered Sig/Tien Route Start Time Stop Time Status Last Admin (Milk Of Magnesia Liq) 30 ml Q6H PRN PO 10/28/16 15:00 11/27/16 14:42 (Benadryl) 50 mg Q6H PRN PO 10/29/16 17:00 11/09/16 15:01 (Benadryl Inj) 50 mg Q6H PRN IM 10/29/16 17:00 11/13/16 05:20 (Tylenol) 650 mg Q4H PRN PO 10/29/16 17:00 11/27/16 20:48 (Ativan) 2 mg Q6H PRN PO 10/31/16 17:00 11/21/16 16:00 (Zofran Inj) 4 mg Q8HR PRN IV PUSH 11/01/16 13:30 11/28/16 12:58 (Inderal) 20 mg Q8HR PO 11/11/16 14:00 11/29/16 20:35 (NS Flush) 2 ml UNSCH PRN IV FLUSH 11/12/16 14:15 (Free Water) VOLUME: 100 ML Q6HR G-TUBE 11/17/16 12:00 11/30/16 12:00 (Ativan Inj) 2 mg Q6H IM 11/20/16 14:00 11/30/16 07:51 (Namenda) 10 mg DAILY PO 11/21/16 09:00 11/30/16 09:00 (Ambien) 10 mg HS PO 11/21/16 21:00 11/29/16 20:35 (Fleets Enema (Adult)) 133 ml UNSCH PRN RECTAL 11/21/16 15:45 11/22/16 08:49 (Magic Mouthwash Adult Liq) 5 ml QID SWISH-SWAL 11/23/16 18:00 11/30/16 12:54 (Colace) 100 mg BID PO 11/25/16 21:00 11/29/16 20:35 (Miralax) 17 gm DAILY PO 11/27/16 11:30 11/30/16 07:51 (Dulcolax Supp) 10 mg DAILY PRN RECTAL 11/27/16 16:00 (Abilify) 15 mg DAILY PO 11/30/16 09:00 11/30/16 07:50 A/P Problem List: (1) Schizophrenia, paranoid type ICD Code: F20.0 Status: Acute (2) Unspecified psychosis ICD Code: F29 Status: Acute (3) Tachycardia ICD Code: R00.0 Status: Acute (4) Hypokalemia ICD Code: E87.6 Status: Resolved Assessment and Plan Patient is a 21-year-old white female with no known primary medical history who came in to the hospital from [facility] under De La Torre act secondary to being belligerent at home, acting out raking things and making suicidal statements. As per record, questionable smoking K2 as per nursing staff at [facility]. The patient also refused to give urine specimen for test. 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 Patient is now admitted to inpatient psychiatry unit for further evaluation. Consulted for medical management, tachycardia. Psychosis, paranoid schizophrenia, catatonia - Management by psychiatry team - CT scan and neurology consult requested by primary team - r/o organic cause of AMS ? - CT scan normal - seen in consultation by Neurology - MRI brain normal, EEG normal. s/p LP. Follow-up results. - ESR and CRP within normal, RPR and HIV within normal. - Continues to be exhibiting catatonia but with improving movement and verbalization. Discussed with Dr. Marie. Patient is candidate for ECT. Family agreeable. Dr. Marie presents to [facility]. Patient has already been accepted for treatment at facility in [place]. - Neurology consulted input appreciated. CSF normal, CSF paraneoplastic antibodies all negative. Per neuro, please call prn. - CT of the abdomen and pelvis normal examination - CT of the chest unremarkable CT chest. No infiltrate or mass. - As per staff, psychiatrist spoke with father for possible ECT treatment. - Medication adjustment from psychiatry continues for psych management - Now on Ativan 2mg IM q6h, Ambien 15mg in am and 10mg po qhs, Namenda 10mg and Abilify 15mg daily Tachycardia - Most likely related to paranoia and anxiety,increase Propranolol 20mg Q8hrs. - elevated HR may be due in part to dehydration given poor po intake, encourage fluids/increased po intake. Ensure shakes. - HR currently 105 - TSH WNL - continue to monitor HR Poor by mouth intake Weight loss - Continue to encourage by mouth fluid intake - Ensure shakes - Patient continues to have poor by mouth intake, unable to meet caloric needs. Dobbhoff placed. - NGT feedings, placement for short-term nutritional support. New tube placement. - Dietary consult recommend tube feedings Jevity 1.5 goal of 50 ML's an hour - change to nighttime feedings to encourage po intake during the day. - Pcb Designer to assist with transitioning to oral intake, appreciate their input/assistance. Nocturnal tube feedings increased by another hour. They will continue to follow. - Monitor for aspiration. HLD 30, patient out of bed to chair sitting up. - Hold off on PEG tube placement as patients intake improving - improved po intake, eating 50% or more of her meals. D/C tube feedings today and monitor intake. Possible neuroleptic malignant syndrome, with positive muscle rigidity, elevated total creatine kinase and CK, tachycardia, and catatonia. - Total creatinine kinase needs hydration. CK 162 --> 342 --> 445 --> 533 -- > 357 --> 358 - Discussed with Dr. Marie - likely not NMS. - No appreciable muscle rigidity or tremors noted. - Monitor closely. Constipation with complaints of lower abdominal pain - (+)BM - begin Miralax daily - UA negative for UTI - KUB showed stool t/o the colon - monitor for BM DVT prophylaxis: encourage ambulation. Discussed with patient, nursing, DrCarol De La Garza November 30, 2016 13:30 Carol Holder November 30, 2016 13:30
--- NOTE | 2016-11-30 13:31 | HHI.PYPN ---
Subjective Remarks Patient was seen today for psychiatric reevaluation along with nurse in charge Janee seen in her room, she was laying in her bed, alert, calm, but continues to be limitedly engageable in a conversation. Patient will answer to simple, sometimes to a step commands, will answer yes or no, she was able to say that she is at [place], she was able to recognize my name, she knows that we are in November 2016. She knows the name of the field producer. But continues to be catatonic, with significant waxy flexibility, negativism, alogia , poverty of speech, blocking thought. She has been eating at over 50% of her food with help, but will not eat independently. [employer] [facility] for ECT is scheduled for December 04, 2016 at 1:30 PM. Review of Systems Gastrointestinal: COMPLAINS OF: Nausea Objective Alert: Yes [place]: Person, Place, Date (partially) Mood: Other (would not answer) Affect: Restricted Memory Intact: Comment (Not formally assessed) Hallucinations: Other (remains internally stimulated) Delusions: No Delusion Type: Other (not elicited at this time) Suicidal: Ideation (no SI) Homicidal: Ideation (no HI) Insight/Judgment Poor Vitals/IOs Vital Signs Date Time Temp Pulse Resp B/P Pulse Ox O2 Delivery O2 Flow Rate FiO2 11/30/16 06:00 98.0 105 18 114/62 99 Intake and Output 11/29/16 11/29/16 11/30/16 08:00 16:00 00:00 Intake Total 480 ml 240 ml 1090 ml Balance 480 ml 240 ml 1090 ml Assessment & Plan Problem List: (1) Catatonia Assessment & Plan: Patient shows periods modest improvement of her catatonic state after challenges of Ambien, today with Ambien 15 mg, and Ativan 2 mg IM every 6 hours, but remains catatonic. Holger 11/22/2016 was 10 compare with 35 on 11/15/2016. Holger today was 24 before Ambien Challenge. Family members now agree with ECT treatment. Dr. Roman consulted for second opinion for ECT, appreciated. [employer] [facility] for ECT is scheduled for December 04, 2016 at 1:30 PM Continue Namenda 10 mg to help with catatonia, NMDA antagosnims can potentiate the effect of GABAergic drugs Continue Abilify to 15 mg daily for underlying psychosis, but also because Abilify dopaminergic partial antagonism can help with catatonia Neuro Follow up reviewed and appreciated: As per Neuro "is much improved, started verbalizing and more participant csf paraneoplastic antibodies all negative please call prn neuro ICD Code: F06.1 (2) Unspecified psychosis ICD Code: F29 Assessment & Plan Estimated LOS: days Justification for Cont. Inpt. Patient continues to be catatonic/psychotic and is inpatient level of care. Request HC Surrog/Guard Advoc?: Yes Damian Marie MD November 30, 2016 13:31
[2016-11-30] MEDS ORDERED: MEGESTROL ACETATE SUSP 400 MG/10 ML CUP PO ONE (16:00)
[2016-11-30 16:27] VITALS: BP 110/64; PULSE 103; RESP 18; TEMP 98.1; O2SAT 97
[2016-11-30] MEDS: ZOLPIDEM TARTRATE 10 MG TAB PO SCH (21:39)
[2016-12-01] MEDS: LORazepam 2 MG/ML VIAL IM SCH ×4 (03:06→21:19)
[2016-12-01 05:21] VITALS: BP 110/56; PULSE 98; RESP 16; TEMP 97.8; O2SAT 99
[2016-12-01] MEDS: FREE WATER G-TUBE SCH ×3 (05:21→12:00)
[2016-12-01] MEDS: ZOLPIDEM TARTRATE 10 MG TAB PO SCH ×3 (05:52→21:18)
[2016-12-01] MEDS: PROPRANOLOL HCL 20 MG TAB PO SCH ×3 (05:52→21:18)
[2016-12-01] MEDS: ARIPiprazole 5 MG TAB PO SCH (08:28)
[2016-12-01] MEDS: MEMANTINE HCL 5 MG TAB PO SCH (08:28)
[2016-12-01] MEDS: DOCUSATE SODIUM 100 MG CAP PO SCH ×2 (08:28→21:18)
[2016-12-01] MEDS: NYSTAT/DIPHENHY/LIDO MOUTHWASH (Adult) 120ML SWISH-SWAL SCH ×4 (08:29→21:00)
[2016-12-01] MEDS: POLYETHYLENE GLYCOL 17 GM PKG PO SCH (08:29)
[2016-12-01] MEDS: MEGESTROL ACETATE SUSP 400 MG/10 ML CUP PO SCH (08:29)
--- NOTE | 2016-12-01 11:44 | HHI.PR ---
Subjective Remarks Follow-up visit catatonia, poor nutrition, tachycardia. Patient seen and examined. Patient sitting on side of bed eating lunch. Sitter at bedside. Patient awake and alert. Minimal vocalization. Occasional smiling. HR more controlled. Afebrile. Spoke with RN, denies any new acute changes. Objective Vitals Vital Signs Date Time Temp Pulse Resp B/P Pulse Ox O2 Delivery O2 Flow Rate FiO2 12/01/16 05:21 97.8 98 16 110/56 99 11/30/16 16:27 98.1 103 18 110/64 97 I/O 11/30/16 11/30/16 11/30/16 12/01/16 12/01/16 12/01/16 07:00 15:00 23:00 07:00 15:00 23:00 Intake Total 780 ml 240 ml Balance 780 ml 240 ml Intake Oral 240 ml Tube Feeding 550 ml Tube Irrigant 230 ml # Voids 4 Result Diagram: 11/27/16 1356 Imaging Last Impressions Abdomen X-Ray 11/27/16 0000 Signed Impressions: Service Date/Time: Sunday, November 27, 2016 13:47 - CONCLUSION: No acute abdominal abnormality is identified. Ravi Arriola MD Chest X-Ray 11/23/16 0000 Signed Impressions: Service Date/Time: Wednesday, November 23, 2016 21:48 - CONCLUSION: No evidence of acute cardiopulmonary disease. Ravi Dominguez MD Chest CT 11/15/16 0000 Signed Impressions: Service Date/Time: November 11:20 - CONCLUSION: 1. Unremarkable CT chest. 2. No infiltrate or mass. Prieto Rock MD Abdomen/Pelvis CT 11/15/16 0000 Signed Impressions: Service Date/Time: November 11:13 - CONCLUSION: Normal examination. Rolando Nuñez MD Lumbar Puncture Fluoroscopy 11/14/16 0000 Signed Impressions: Service Date/Time: November 10:46 - CONCLUSION: Uncomplicated fluoroscopically guided lumbar puncture. Florencio Leslie MD Brain MRI 11/09/16 0000 Signed Impressions: Service Date/Time: Wednesday, November 09, 2016 13:26 - CONCLUSION: 1. Small amount of fluid within the sphenoid sinus. The examination is otherwise unremarkable. Bi Berg MD Head CT 11/08/16 0000 Signed Impressions: Service Date/Time: November 18:15 - CONCLUSION: Normal examination. Ravi Ace MD Lower Extremity Ultrasound 11/07/16 0000 Signed Impressions: Service Date/Time: Monday, November 07, 2016 10:57 - CONCLUSION: No evidence of deep venous thrombosis within the lower extremities. Philippe Menendez MD Objective Remarks GENERAL: Well-developed patient, flat affect, voicing minimal words, sitting on side of bed in no apparent distress. SKIN: No rashes, ecchymoses or lesions. Warm and dry. HEAD: Atraumatic. Normocephalic. No temporal or scalp tenderness. Pupils equal round and reactive. Nose without bleeding. Airway patent. No JVD or lymphadenopathy. Supple, nontender, no meningeal signs. CARDIOVASCULAR: Tachycardia without murmurs, gallops, or rubs. RESPIRATORY: CTA. Breath sounds equal bilaterally. No wheezes, rales, or rhonchi. GASTROINTESTINAL: Abdomen soft, non-tender, nondistended. Bowel sounds active x 4. MUSCULOSKELETAL: Extremities without clubbing, cyanosis, or edema. NEUROLOGICAL: Awake and alert. Stiffness improved. No tremors noted. Verbalizing occasionally. Moves all extremity. Normal speech. Procedures 11/15/16 Lumbar Puncture 11/16/16 Dobhoff placement A/P Problem List: (1) Schizophrenia, paranoid type ICD Code: F20.0 Status: Acute (2) Unspecified psychosis ICD Code: F29 Status: Acute (3) Tachycardia ICD Code: R00.0 Status: Acute (4) Hypokalemia ICD Code: E87.6 Status: Resolved Assessment and Plan Patient is a 21-year-old white female with no known primary medical history who came in to the hospital from [facility] under De La Torre act secondary to being belligerent at home, acting out raking things and making suicidal statements. As per record, questionable smoking K2 as per nursing staff at [facility]. The patient also refused to give urine specimen for test. 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 Patient is now admitted to inpatient psychiatry unit for further evaluation. Consulted for medical management, tachycardia. Psychosis, paranoid schizophrenia - managed by psychiatry team - Patient's affect flat today. Minimal words. No tremors noted. Tachycardia - Most likely related to paranoia and anxiety, Propranolol scheduled. - EKG done 10/31 and reviewed by me, tachycardia [address] changes. - Ativan 2 mg scheduled IM and available PRN. - Unremarkable labs, reviewed. Previous toxicology negative. Possible neuroleptic malignant syndrome, with positive muscle rigidity, elevated total creatine kinase and CK, tachycardia, tremors, and catatonia. - Total creatinine kinase, 1453-->1323 --> 722 --> 672 --> 472 --> 479 --> 360 --> 103 --> 372 --> 162. Resolved. - Muscle rigidity and tremors much improved. - Monitor closely. - Propranolol 10 mg Q8hr scheduled. Continue Abilify 15 mg PO daily. Continue Ambien 10 mg PO daily. Psychologist following. - Status post lumbar puncture 11/15, CSF culture NGTD. Acid fast stain and mycobacterial culture pending. Poor PO intake - NGT removed, TF dc'd. Encourage patient to increase PO intake. Nausea, resolved for now: Zofran PRN DVT prophylaxis: encourage ambulation. Giuliana Montelongo December 01, 2016 11:44
--- NOTE | 2016-12-01 13:14 | HHI.PYPN ---
Subjective Remarks According to staff patient is more verbal and eating better today. She was not interactive with this physician although she has met me many times before. Review of Systems Except as stated in HPI: all other systems reviewed are Neg Objective Alert: Yes [place]: Person, Place, Date (partially) Mood: Other (would not answer) Affect: Restricted Memory Intact: Comment (Not formally assessed) Hallucinations: Other (remains internally stimulated) Delusions: No Delusion Type: Other (not elicited at this time) Suicidal: Ideation (no SI) Homicidal: Ideation (no HI) Insight/Judgment Impaired Vitals/IOs Vital Signs Date Time Temp Pulse Resp B/P Pulse Ox O2 Delivery O2 Flow Rate FiO2 12/01/16 05:21 97.8 98 16 110/56 99 Intake and Output 11/30/16 11/30/16 12/01/16 08:00 16:00 00:00 Intake Total 780 ml Balance 780 ml Assessment & Plan Problem List: (1) Catatonia ICD Code: F06.1 (2) Unspecified psychosis ICD Code: F29 Assessment & Plan Estimated LOS: 7 days continue antipsychotic medications. Justification for Cont. Inpt. Likely to decompensate further at lower level of care. Request HC Surrog/Guard Advoc?: Yes Placido Colin MD December 01, 2016 13:14
[2016-12-01 18:23] VITALS: BP 121/88; PULSE 110; RESP 21; O2SAT 94
[2016-12-02] MEDS: LORazepam 2 MG/ML VIAL IM SCH ×4 (03:14→20:20)
[2016-12-02 05:17] VITALS: BP 99/69; PULSE 97; RESP 18; TEMP 97.8; O2SAT 99
[2016-12-02] MEDS: ZOLPIDEM TARTRATE 10 MG TAB PO SCH ×3 (06:27→21:12)
[2016-12-02] MEDS: PROPRANOLOL HCL 20 MG TAB PO SCH ×3 (06:27→21:20)
[2016-12-02] MEDS: NYSTAT/DIPHENHY/LIDO MOUTHWASH (Adult) 120ML SWISH-SWAL SCH ×4 (08:45→21:00)
[2016-12-02] MEDS: ARIPiprazole 5 MG TAB PO SCH (08:46)
[2016-12-02] MEDS: ACETAMINOPHEN 325 MG TAB PO PRN (08:46)
[2016-12-02] MEDS: MEMANTINE HCL 5 MG TAB PO SCH (08:47)
[2016-12-02] MEDS: POLYETHYLENE GLYCOL 17 GM PKG PO SCH (08:47)
[2016-12-02] MEDS: MEGESTROL ACETATE SUSP 400 MG/10 ML CUP PO SCH (08:47)
[2016-12-02] MEDS: DOCUSATE SODIUM 100 MG CAP PO SCH ×2 (08:47→21:00)
--- NOTE | 2016-12-02 16:53 | HHI.PR ---
Subjective Remarks Follow-up visit schizophrenia, catatonia. Patient seen and examined today. Awake and alert. Follows commands. Continues to be hypoverbal but she is more conversant. Attempts to answer questions, occasionally mimics and repeats words and sentences. Otherwise appears comfortable. As per staff, patient has been ambulating with walker use several times a day, has been eating and hydrating well, activities includes coloring book. Objective Vitals Vital Signs Date Time Temp Pulse Resp B/P Pulse Ox O2 Delivery O2 Flow Rate FiO2 12/02/16 05:17 97.8 97 18 99/69 99 12/01/16 18:23 110 21 121/88 94 I/O 12/01/16 12/01/16 12/01/16 12/02/16 12/02/16 12/02/16 07:00 15:00 23:00 07:00 15:00 23:00 Intake Total 240 ml 100 ml 200 ml 240 ml Output Total 1 ml Balance 240 ml 100 ml 200 ml 239 ml Intake Oral 240 ml 100 ml 200 ml 240 ml Stool Total 1 ml # Voids 4 1 2 Imaging Last Impressions Abdomen X-Ray 11/27/16 0000 Signed Impressions: Service Date/Time: Sunday, November 27, 2016 13:47 - CONCLUSION: No acute abdominal abnormality is identified. Ravi Arriola MD Chest X-Ray 11/23/16 0000 Signed Impressions: Service Date/Time: Wednesday, November 23, 2016 21:48 - CONCLUSION: No evidence of acute cardiopulmonary disease. Ravi Dominguez MD Chest CT 11/15/16 0000 Signed Impressions: Service Date/Time: November 11:20 - CONCLUSION: 1. Unremarkable CT chest. 2. No infiltrate or mass. Prieto Rock MD Abdomen/Pelvis CT 11/15/16 0000 Signed Impressions: Service Date/Time: November 11:13 - CONCLUSION: Normal examination. Rolando Nuñez MD Lumbar Puncture Fluoroscopy 11/14/16 0000 Signed Impressions: Service Date/Time: November 10:46 - CONCLUSION: Uncomplicated fluoroscopically guided lumbar puncture. Florencio Leslie MD Brain MRI 11/09/16 0000 Signed Impressions: Service Date/Time: Wednesday, November 09, 2016 13:26 - CONCLUSION: 1. Small amount of fluid within the sphenoid sinus. The examination is otherwise unremarkable. Bi Berg MD Head CT 11/08/16 0000 Signed Impressions: Service Date/Time: November 18:15 - CONCLUSION: Normal examination. Ravi Ace MD Lower Extremity Ultrasound 11/07/16 0000 Signed Impressions: Service Date/Time: Monday, November 07, 2016 10:57 - CONCLUSION: No evidence of deep venous thrombosis within the lower extremities. Philippe Mennedez MD Objective Remarks GENERAL: pt. is a well-developed patient, NAD. Awake. SKIN: Facial acne, no ecchymoses or lesions. Warm and dry. HEAD: Atraumatic. Normocephalic. EOMI. CARDIOVASCULAR: Tachycardia without murmurs, gallops, or rubs. RESPIRATORY: CTA. Breath sounds equal bilaterally. No wheezes, rales, or rhonchi. GASTROINTESTINAL: Abdomen soft, nondistended. Bowel sounds hypoactive. NGT in place MUSCULOSKELETAL: Extremities without clubbing, cyanosis, or edema. NEUROLOGICAL: Awake and alert. No rigidity but slow bradykinetic movements noted. Hypoverbal. Moves all extremities. Procedures 11/15/16 Lumbar Puncture 11/16/16 Dobhoff placement A/P Problem List: (1) Schizophrenia, paranoid type ICD Code: F20.0 Status: Acute (2) Unspecified psychosis ICD Code: F29 Status: Acute (3) Tachycardia ICD Code: R00.0 Status: Acute (4) Hypokalemia ICD Code: E87.6 Status: Resolved Assessment and Plan Patient is a 21-year-old white female with no known primary medical history who came in to the hospital from [facility] under De La Torre act secondary to being belligerent at home, acting out raking things and making suicidal statements. As per record, questionable smoking K2 as per nursing staff at [facility]. The patient also refused to give urine specimen for test. 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 Patient is now admitted to inpatient psychiatry unit for further evaluation. Consulted for medical management, tachycardia. Psychosis, paranoid schizophrenia - Management by psychiatry team - CT scan and neurology consult requested by primary team - r/o organic cause of AMS ? - CT scan normal - seen in consultation by Neurology - MRI brain normal, EEG normal. Plan for LP. Follow-up results - ESR and CRP within normal, RPR and HIV within normal. - Continues to be exhibiting catatonia with minimal movement and no verbalization. Might be a candidate for ECT. - Neurology consulted input appreciated. CSF normal, encephalitis antibodies may take 2-3 weeks for results. As per neuro, consider per psychiatric presentation. - Lumbar puncture done today. - CT of the abdomen and pelvis normal examination - CT of the chest unremarkable CT chest. No infiltrate or mass. - As per staff, psychiatrist spoke with father for possible ECT treatment. - Medication adjustment from psychiatry continues for psych management - Medication adjustment done by psychiatry has improved patient's condition slowly Tachycardia - Most likely related to paranoia and anxiety,increase Propranolol 20mg Q8hrs. - elevated HR may be due in part to dehydration given poor po intake, encourage fluids/increased po intake. Ensure shakes. - TSH WNL - normal white count, afebrile - continue to monitor HR - off IVF - Improving Poor by mouth intake Weight loss - Previously was on tube feeds. - On Megace - Now patient is able to have by mouth intake. As per staff adequate by mouth intake Possible neuroleptic malignant syndrome, with positive muscle rigidity, elevated total creatine kinase and CK, tachycardia, and catatonia. - Total creatinine kinase needs hydration. CK 162 --> 342 - Discussed with Dr. Marie - likely not NMS. - No appreciable muscle rigidity or tremors noted. - Monitor closely Constipation - Bowel regimen MiraLAX daily, fleets enema when necessary, bisacodyl when necessary BLE pain/discomfort - Bilateral US to r/o DVT negative DVT prophylaxis: encourage ambulation. Discussed with patient, nursing, Mary Prakash December 02, 2016 16:53
[2016-12-02 18:16] VITALS: BP 119/62; PULSE 70; RESP 18; TEMP 98.4; O2SAT 99
--- NOTE | 2016-12-02 18:38 | HHI.PYPN ---
Subjective Remarks Patient continues not to speak to this physician. However, nursing staff states she had a good day. Patient's mother visited and reported stating this was the patient looking better. Review of Systems ROS Limitations: Clinical Condition, Psychotic Objective Alert: Yes [place]: Person, Place, Date (partially) Mood: Other (would not answer) Affect: Restricted Memory Intact: Comment (Not formally assessed) Hallucinations: Other (remains internally stimulated) Delusions: No Delusion Type: Other (not elicited at this time) Suicidal: Ideation (no SI) Homicidal: Ideation (no HI) Insight/Judgment Impaired Vitals/IOs Vital Signs Date Time Temp Pulse Resp B/P Pulse Ox O2 Delivery O2 Flow Rate FiO2 12/02/16 18:16 98.4 70 18 119/62 99 Intake and Output 12/01/16 12/01/16 12/02/16 08:00 16:00 00:00 Intake Total 240 ml 100 ml Balance 240 ml 100 ml Assessment & Plan Problem List: (1) Catatonia ICD Code: F06.1 (2) Unspecified psychosis ICD Code: F29 Assessment & Plan Estimated LOS: 5 days continue antipsychotic therapy. Justification for Cont. Inpt. Will decompensate at lower level of care. Request HC Surrog/Guard Advoc?: Yes Placido Colin MD December 02, 2016 18:38
[2016-12-03] MEDS: LORazepam 2 MG/ML VIAL IM SCH ×4 (02:00→20:00)
[2016-12-03] MEDS: ZOLPIDEM TARTRATE 10 MG TAB PO SCH ×3 (05:12→21:27)
[2016-12-03] MEDS: PROPRANOLOL HCL 20 MG TAB PO SCH ×3 (05:12→21:27)
[2016-12-03 05:48] VITALS: BP 108/66; PULSE 108; RESP 18; TEMP 97.4; O2SAT 100
[2016-12-03] MEDS: ARIPiprazole 5 MG TAB PO SCH (09:00)
[2016-12-03] MEDS: MEGESTROL ACETATE SUSP 400 MG/10 ML CUP PO SCH (09:00)
[2016-12-03] MEDS: MEMANTINE HCL 5 MG TAB PO SCH (09:00)
[2016-12-03] MEDS: NYSTAT/DIPHENHY/LIDO MOUTHWASH (Adult) 120ML SWISH-SWAL SCH ×4 (09:00→20:01)
[2016-12-03] MEDS: DOCUSATE SODIUM 100 MG CAP PO SCH ×2 (09:00→20:00)
[2016-12-03] MEDS: POLYETHYLENE GLYCOL 17 GM PKG PO SCH (09:00)
--- NOTE | 2016-12-03 12:23 | HHI.PYPN ---
Subjective Remarks Patient is still not speaking to this physician. Apparently she does speak to other staff members. She was noted to be ambulating with assistance today. Review of Systems ROS Limitations: Clinical Condition, Psychotic, Poor Historian Objective Alert: Yes [place]: Person, Place, Date (partially) Mood: Other (would not answer) Affect: Restricted Memory Intact: Comment (Not formally assessed) Hallucinations: Other (remains internally stimulated) Delusions: No Delusion Type: Other (not elicited at this time) Suicidal: Ideation (no SI) Homicidal: Ideation (no HI) Insight/Judgment Markedly impaired. 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 Plan to continue antipsychotic therapy. Justification for Cont. Inpt. Unable to care for self and likely to decompensate at lower level of care. Request HC Surrog/Guard Advoc?: Yes Placido Colin MD December 03, 2016 12:22
[2016-12-03 12:43] VITALS: BP 116/66; PULSE 112; RESP 16; TEMP 97.8; O2SAT 96
--- NOTE | 2016-12-03 13:28 | HHI.PR ---
Subjective Remarks Follow-up visit schizophrenia, catatonia. Patient seen and examined today. More awake and alert. Continues to be hypermobile but attempts to communicate. As per staff, patient is able to participate with psychiatry activities including culturing of books and go outside for fresh air. States patient has been eating well and hydrating well. Appears comfortable. Objective Vitals Vital Signs Date Time Temp Pulse Resp B/P Pulse Ox O2 Delivery O2 Flow Rate FiO2 12/03/16 12:43 97.8 112 16 116/66 96 12/03/16 05:48 97.4 108 18 108/66 100 12/02/16 18:16 98.4 70 18 119/62 99 I/O 12/02/16 12/02/16 12/02/16 12/03/16 12/03/16 12/03/16 07:00 15:00 23:00 07:00 15:00 23:00 Intake Total 200 ml 240 ml 240 ml 200 ml Output Total 1 ml Balance 200 ml 239 ml 240 ml 200 ml Intake Oral 200 ml 240 ml 240 ml 200 ml Stool Total 1 ml # Voids 2 2 Imaging Last Impressions Abdomen X-Ray 11/27/16 0000 Signed Impressions: Service Date/Time: Sunday, November 27, 2016 13:47 - CONCLUSION: No acute abdominal abnormality is identified. Ravi Arriola MD Chest X-Ray 11/23/16 0000 Signed Impressions: Service Date/Time: Wednesday, November 23, 2016 21:48 - CONCLUSION: No evidence of acute cardiopulmonary disease. Ravi Dominguez MD Chest CT 11/15/16 0000 Signed Impressions: Service Date/Time: November 11:20 - CONCLUSION: 1. Unremarkable CT chest. 2. No infiltrate or mass. Prieto Rock MD Abdomen/Pelvis CT 11/15/16 0000 Signed Impressions: Service Date/Time: November 11:13 - CONCLUSION: Normal examination. Rolando Nuñez MD Lumbar Puncture Fluoroscopy 11/14/16 0000 Signed Impressions: Service Date/Time: November 10:46 - CONCLUSION: Uncomplicated fluoroscopically guided lumbar puncture. Florencio Leslie MD Brain MRI 11/09/16 0000 Signed Impressions: Service Date/Time: Wednesday, November 09, 2016 13:26 - CONCLUSION: 1. Small amount of fluid within the sphenoid sinus. The examination is otherwise unremarkable. Bi Berg MD Head CT 11/08/16 0000 Signed Impressions: Service Date/Time: November 18:15 - CONCLUSION: Normal examination. Ravi Ace MD Lower Extremity Ultrasound 11/07/16 0000 Signed Impressions: Service Date/Time: Monday, November 07, 2016 10:57 - CONCLUSION: No evidence of deep venous thrombosis within the lower extremities. Philippe Menendez MD Objective Remarks GENERAL: pt. is a well-developed patient, NAD. Awake. SKIN: Facial acne, no ecchymoses or lesions. Warm and dry. HEAD: Atraumatic. Normocephalic. EOMI. CARDIOVASCULAR: Tachycardia without murmurs, gallops, or rubs. RESPIRATORY: CTA. Breath sounds equal bilaterally. No wheezes, rales, or rhonchi. GASTROINTESTINAL: Abdomen soft, nondistended. Bowel sounds hypoactive. Voiding without difficulty. MUSCULOSKELETAL: Extremities without clubbing, cyanosis, or edema. NEUROLOGICAL: Awake and alert. No rigidity but slow bradykinetic movements noted. Hypoverbal. Moves all extremities. Procedures 11/15/16 Lumbar Puncture 11/16/16 Dobhoff placement A/P Problem List: (1) Schizophrenia, paranoid type ICD Code: F20.0 Status: Acute (2) Unspecified psychosis ICD Code: F29 Status: Acute (3) Tachycardia ICD Code: R00.0 Status: Acute (4) Hypokalemia ICD Code: E87.6 Status: Resolved Assessment and Plan Patient is a 21-year-old white female with no known primary medical history who came in to the hospital from [facility] under [facility] [place] [facility] act secondary to being belligerent at home, acting out raking things and making suicidal statements. As per record, questionable smoking K2 as per nursing staff at [facility]. The patient also refused to give urine specimen for test. 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 Patient is now admitted to inpatient psychiatry unit for further evaluation. Consulted for medical management, tachycardia. Psychosis, paranoid schizophrenia - Management by psychiatry team - CT scan and neurology consult requested by primary team - r/o organic cause of AMS ? - CT scan normal - seen in consultation by Neurology - MRI brain normal, EEG normal. Plan for LP. Follow-up results - ESR and CRP within normal, RPR and HIV within normal. - Continues to be exhibiting catatonia with minimal movement and no verbalization. Might be a candidate for ECT. - Neurology consulted input appreciated. CSF normal, encephalitis antibodies may take 2-3 weeks for results. As per neuro, consider per psychiatric presentation. - Lumbar puncture done today. - CT of the abdomen and pelvis normal examination - CT of the chest unremarkable CT chest. No infiltrate or mass. - As per staff, psychiatrist spoke with father for possible ECT treatment. - Medication adjustment from psychiatry continues for psych management - Medication adjustment done by psychiatry has improved patient's condition slowly. Now communicates more and participates with psych treatment activity. Tachycardia - Most likely related to paranoia and anxiety,increase Propranolol 20mg Q8hrs. - elevated HR may be due in part to dehydration given poor po intake, encourage fluids/increased po intake. Ensure shakes. - TSH WNL. Off IV fluids. - Improving Poor by mouth intake Weight loss - Previously was on tube feeds. - On Megace - Now patient is able to have by mouth intake. As per staff adequate by mouth intake. Possible neuroleptic malignant syndrome, with positive muscle rigidity, elevated total creatine kinase and CK, tachycardia, and catatonia. - Discussed with Dr. Marie - likely not NMS. - No appreciable muscle rigidity or tremors noted. - Monitor closely Constipation - Bowel regimen MiraLAX daily, fleets enema when necessary, bisacodyl when necessary BLE pain/discomfort - Bilateral US to r/o DVT negative DVT prophylaxis: encourage ambulation. Discussed with patient, nursing, Mary Prakash December 03, 2016 13:28
[2016-12-03 13:31] LABS: AUTOMATED NEUTROPHIL # 5.9 TH/MM3 (1.8-7.7); BASOPHIL % 0.3 % (0.0-2.0); EOSINOPHIL # 0.1 TH/MM3 (0-0.4); EOSINOPHIL % 1.5 % (0.0-4.0); HEMATOCRIT 39.1 % (35.0-46.0); HEMO FLAGS DIFF FINAL; LYMPH % 20.5 % (9.0-44.0); LYMPHOCYTE # 1.7 TH/MM3 (1.0-4.8); MEAN CELL VOLUME 90.9 FL (80.0-100.0); MEAN CORPUSCULAR HEMOGLOBIN 31.4 PG (27.0-34.0); MEAN CORPUSCULAR HGB CONC 34.5 % (32.0-36.0); MONO % 5.7 % (0.0-8.0); PLATELET COUNT 309 TH/MM3 (150-450); RED BLOOD COUNT 4.29 MIL/MM3 (4.00-5.30); RED CELL DISTRIBUTION WIDTH 13.2 % (11.6-17.2); WHITE BLOOD COUNT 8.2 TH/MM3 (4.0-11.0)
[2016-12-03 14:03] LABS: ALT (GPT) 29 U/L (9-42); ANION GAP 10 MEQ/L (5-15); AST (GOT) 19 U/L (16-38); BICARBONATE 27.4 MEQ/L (21.0-32.0); BLOOD UREA NITROGEN 8 MG/DL (7-18); CHLORIDE 106 MEQ/L (98-107); GLOMERULAR FILTRATION RATE 120 ML/MIN (>89); MAGNESIUM 2.3 MG/DL (1.5-2.5); POTASSIUM 3.9 MEQ/L (3.5-5.1); SODIUM (NA) 143 MEQ/L (136-145)
[2016-12-03 14:05] LABS: ALKALINE PHOSPHATASE 68 U/L (45-117); TOTAL BILIRUBIN ADULT 0.2 MG/DL (0.2-1.0)
[2016-12-03] MEDS: SODIUM CHLOR 0.9% 1000 ML INJ 1,000 ML IV SCH (16:00)
[2016-12-03 19:05] VITALS: BP 123/72; PULSE 111; RESP 18; TEMP 97.6; O2SAT 98
[2016-12-04 00:58] VITALS: BP 120/66; PULSE 98; RESP 16; TEMP 98; O2SAT 98
[2016-12-04] MEDS: LORazepam 2 MG/ML VIAL IM SCH ×2 (01:06→08:38)
[2016-12-04] MEDS: PROPRANOLOL HCL 20 MG TAB PO SCH ×3 (05:11→20:40)
[2016-12-04 05:13] VITALS: BP 119/66; PULSE 108; RESP 16; TEMP 98; O2SAT 97
[2016-12-04] MEDS: ZOLPIDEM TARTRATE 10 MG TAB PO SCH ×2 (05:49→21:11)
[2016-12-04] MEDS ORDERED: ZOLPIDEM TARTRATE 10 MG TAB PO STA (08:14)
[2016-12-04] MEDS: ARIPiprazole 5 MG TAB PO SCH (08:37)
[2016-12-04] MEDS: MEMANTINE HCL 5 MG TAB PO SCH (08:38)
[2016-12-04] MEDS: POLYETHYLENE GLYCOL 17 GM PKG PO SCH (08:38)
[2016-12-04 08:52] VITALS: BP 119/66; PULSE 108; RESP 16; TEMP 98.1; O2SAT 97
[2016-12-04] MEDS: MEGESTROL ACETATE SUSP 400 MG/10 ML CUP PO SCH (09:00)
[2016-12-04] MEDS: NYSTAT/DIPHENHY/LIDO MOUTHWASH (Adult) 120ML SWISH-SWAL SCH ×4 (09:00→20:40)
[2016-12-04] MEDS: DOCUSATE SODIUM 100 MG CAP PO SCH ×2 (09:00→20:40)
--- NOTE | 2016-12-04 11:32 | HHI.PYPN ---
Subjective Remarks Patient was seen today for psychiatric reevaluation along with nurse in charge Avery and LILI Pollard, she was laying in her bed, alert, calm, poorly cooperative, continues to be limitedly engageable in a conversation. Patient will answer to simple questions, mostly yes or no. She continues to be catatonic, with significant waxy flexibility, negativism, alogia, poverty of speech, blocking thought, echopraxia and a echolalia. She has been eating at over 50% of her food with help, but will not eat independently. [facility] for ECT is scheduled for December 05, 2016 at 1:30 PM. Review of Systems Other No somatic complaints Objective Alert: Yes [place]: Person, Place, Date (partially) Mood: Other (would not answer) Affect: Restricted Memory Intact: Comment (Not formally assessed) Hallucinations: Other (remains internally stimulated) Delusions: No Delusion Type: Other (not elicited at this time) Suicidal: Ideation (no SI) Homicidal: Ideation (no HI) Insight/Judgment Poor Labs Test 12/03/16 12:51 White Blood Count 8.2 TH/MM3 Red Blood Count 4.29 MIL/MM3 Hemoglobin 13.5 GM/DL Hematocrit 39.1 % Mean Corpuscular Volume 90.9 FL Mean Corpuscular Hemoglobin 31.4 PG Mean Corpuscular Hemoglobin 34.5 % Concent Red Cell Distribution Width 13.2 % Platelet Count 309 TH/MM3 Mean Platelet Volume 8.5 FL Neutrophils (%) (Auto) 72.0 % Lymphocytes (%) (Auto) 20.5 % Monocytes (%) (Auto) 5.7 % Eosinophils (%) (Auto) 1.5 % Basophils (%) (Auto) 0.3 % Neutrophils # (Auto) 5.9 TH/MM3 Lymphocytes # (Auto) 1.7 TH/MM3 Monocytes # (Auto) 0.5 TH/MM3 Eosinophils # (Auto) 0.1 TH/MM3 Basophils # (Auto) 0.0 TH/MM3 CBC Comment DIFF FINAL Differential Comment Sodium Level 143 MEQ/L Potassium Level 3.9 MEQ/L Chloride Level 106 MEQ/L Carbon Dioxide Level 27.4 MEQ/L Anion Gap 10 MEQ/L Blood Urea Nitrogen 8 MG/DL Creatinine 0.63 MG/DL Estimat Glomerular Filtration 120 ML/MIN Rate Random Glucose 115 MG/DL Calcium Level 9.2 MG/DL Phosphorus Level 2.7 MG/DL Magnesium Level 2.3 MG/DL Total Bilirubin 0.2 MG/DL Aspartate Amino Transf 19 U/L (AST/SGOT) Alanine Aminotransferase 29 U/L (ALT/SGPT) Alkaline Phosphatase 68 U/L Total Protein 7.1 GM/DL Albumin 3.8 GM/DL Vitals/IOs Vital Signs Date Time Temp Pulse Resp B/P Pulse Ox O2 Delivery O2 Flow Rate FiO2 12/04/16 08:52 98.1 108 16 119/66 97 Intake and Output 12/03/16 12/03/16 12/04/16 08:00 16:00 00:00 Intake Total 100 ml 330 ml Balance 100 ml 330 ml Assessment & Plan Problem List: (1) Catatonia Assessment & Plan: Patient shows periodic slightly improvement of her catatonic symptoms after challenges of Ambien, today with Ambien 15 mg. Will change Ativan to 2 mg 2 by mouth presentation, since patient is accepting by mouth better, will increase to 2 mg every 4 hours. Davis&Macho 11/22/2016 was 10 compare with 35 on 11/15/2016, 21 on 12/04/2016 Family members now agree with ECT treatment. Dr. Roman consulted for second opinion for ECT, appreciated. [facility] for ECT is scheduled for December 05, 2016 at 1:30 PM Continue Namenda 10 mg to help with catatonia, NMDA antagosnims can potentiate the effect of GABAergic drugs Continue Abilify 15 mg daily underlying psychosis, but also because Abilify dopaminergic partial antagonism can help with catatonia Neuro Follow up reviewed and appreciated: As per Neuro "is much improved, started verbalizing and more participant csf paraneoplastic antibodies all negative please call prn neuro ICD Code: F06.1 (2) Unspecified psychosis ICD Code: F29 Assessment & Plan Estimated LOS: days Justification for Cont. Inpt. Patient continues to be in a catatonic state, also acutely psychotic, and needs to continue current level of psychiatric care. Request HC Surrog/Guard Advoc?: Yes Damian Marie MD December 04, 2016 11:32
[2016-12-04] MEDS: SODIUM CHLOR 0.9% 1000 ML INJ 1,000 ML IV SCH (12:00)
[2016-12-04] MEDS: LORazepam 2 MG TAB PO SCH ×3 (12:00→20:40)
[2016-12-04] MEDS ORDERED: LORazepam 2 MG/ML VIAL PO SCH (12:00)
[2016-12-04 17:01] VITALS: BP 122/81; PULSE 134; RESP 18; TEMP 98.7; O2SAT 99
--- NOTE | 2016-12-04 17:51 | HHI.PR ---
Subjective Remarks Patient is eatin well as per sitter and RN found ambulating in the hallways with help afebrile stable vital signs Objective Vitals Vital Signs Date Time Temp Pulse Resp B/P Pulse Ox O2 Delivery O2 Flow Rate FiO2 12/04/16 17:01 98.7 134 18 122/81 99 12/04/16 08:52 98.1 108 16 119/66 97 12/04/16 05:13 98.0 108 16 119/66 97 12/04/16 00:58 98.0 98 16 120/66 98 12/03/16 19:05 97.6 111 18 123/72 98 I/O 12/03/16 12/03/16 12/03/16 12/04/16 12/04/16 12/04/16 07:00 15:00 23:00 07:00 15:00 23:00 Intake Total 200 ml 330 ml 200 ml 960 ml 360 ml Balance 200 ml 330 ml 200 ml 960 ml 360 ml Intake Oral 200 ml 180 ml 960 ml 360 ml IV Total 150 ml 200 ml # Voids 2 3 2 Result Diagram: 12/03/16 1251 12/03/16 1251 Imaging Last Impressions Abdomen X-Ray 11/27/16 0000 Signed Impressions: Service Date/Time: Sunday, November 27, 2016 13:47 - CONCLUSION: No acute abdominal abnormality is identified. Ravi Arriola MD Chest X-Ray 11/23/16 0000 Signed Impressions: Service Date/Time: Wednesday, November 23, 2016 21:48 - CONCLUSION: No evidence of acute cardiopulmonary disease. Ravi Dominguez MD Chest CT 11/15/16 0000 Signed Impressions: Service Date/Time: November 11:20 - CONCLUSION: 1. Unremarkable CT chest. 2. No infiltrate or mass. Prieto Rock MD Abdomen/Pelvis CT 11/15/16 0000 Signed Impressions: Service Date/Time: November 11:13 - CONCLUSION: Normal examination. Rolando Nuñez MD Lumbar Puncture Fluoroscopy 11/14/16 0000 Signed Impressions: Service Date/Time: November 10:46 - CONCLUSION: Uncomplicated fluoroscopically guided lumbar puncture. Florencio Leslie MD Brain MRI 11/09/16 0000 Signed Impressions: Service Date/Time: Wednesday, November 09, 2016 13:26 - CONCLUSION: 1. Small amount of fluid within the sphenoid sinus. The examination is otherwise unremarkable. Bi Berg MD Head CT 11/08/16 0000 Signed Impressions: Service Date/Time: November 18:15 - CONCLUSION: Normal examination. Ravi Ace MD Lower Extremity Ultrasound 11/07/16 0000 Signed Impressions: Service Date/Time: Monday, November 07, 2016 10:57 - CONCLUSION: No evidence of deep venous thrombosis within the lower extremities. Philippe Menendez MD Objective Remarks GENERAL: Well-nourished, well-developed patient INAD. Awake. Sitting in chair in community room. Hypoverbal. SKIN: No rashes, ecchymoses or lesions. Warm and dry. HEENT: Atraumatic. Normocephalic. EOMI. NGT in place. MMM. CARDIOVASCULAR: Tachycardia without murmurs, gallops, or rubs. RESPIRATORY: CTA. Breath sounds equal bilaterally. No wheezes, rales, or rhonchi. GASTROINTESTINAL: Abdomen soft, nondistended. Bowel sounds hypoactive. Patient winces with palpation over her lower abdomen/suprapubic area. MUSCULOSKELETAL: Extremities without clubbing, cyanosis, or edema. Calves are supple bilaterally. NEUROLOGICAL: Awake and alert. No rigidity but slow bradykinetic movements noted. Verbalizing occasionally. Moves all extremities. Procedures 11/15/16 Lumbar Puncture 11/16/16 Dobhoff placement Medications and IVs Current Medications Medications (Trade) Dose Ordered Sig/Tien Route Start Time Stop Time Status Last Admin (Milk Of Magnesia Liq) 30 ml Q6H PRN PO 10/28/16 15:00 11/27/16 14:42 (Benadryl) 50 mg Q6H PRN PO 10/29/16 17:00 11/09/16 15:01 (Benadryl Inj) 50 mg Q6H PRN IM 10/29/16 17:00 11/13/16 05:20 (Tylenol) 650 mg Q4H PRN PO 10/29/16 17:00 12/02/16 08:46 (Ativan) 2 mg Q6H PRN PO 10/31/16 17:00 11/21/16 16:00 (Zofran Inj) 4 mg Q8HR PRN IV PUSH 11/01/16 13:30 11/28/16 12:58 (Inderal) 20 mg Q8HR PO 11/11/16 14:00 12/03/16 21:27 (NS Flush) 2 ml UNSCH PRN IV FLUSH 11/12/16 14:15 (Namenda) 10 mg DAILY PO 11/21/16 09:00 12/04/16 08:38 (Fleets Enema (Adult)) 133 ml UNSCH PRN RECTAL 11/21/16 15:45 11/22/16 08:49 (Magic Mouthwash Adult Liq) 5 ml QID SWISH-SWAL 11/23/16 18:00 12/03/16 20:01 (Colace) 100 mg BID PO 11/25/16 21:00 12/03/16 20:00 (Miralax) 17 gm DAILY PO 11/27/16 11:30 12/04/16 08:38 (Dulcolax Supp) 10 mg DAILY PRN RECTAL 11/27/16 16:00 (Abilify) 15 mg DAILY PO 11/30/16 09:00 12/04/16 08:37 Megestrol Acetate 400 mg 400 mg DAILY PO 12/01/16 09:00 12/03/16 09:00 (NS 1000 ml Inj) 1,000 ml @ 50 mls/hr Q20H IV 12/03/16 16:00 12/03/16 16:00 (Ambien) 10 mg Q12HR PO 12/04/16 21:00 (Ativan) 2 mg Q4HR PO 12/04/16 12:00 12/04/16 16:31 A/P Problem List: (1) Schizophrenia, paranoid type ICD Code: F20.0 Status: Acute (2) Unspecified psychosis ICD Code: F29 Status: Acute (3) Tachycardia ICD Code: R00.0 Status: Acute (4) Hypokalemia ICD Code: E87.6 Status: Resolved Assessment and Plan Patient is a 21-year-old white female with no known primary medical history who came in to the hospital from [facility] under [place] act secondary to being belligerent at home, acting out raking things and making suicidal statements. As per record, questionable smoking K2 as per nursing staff at [facility]. The patient also refused to give urine specimen for test. 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 Patient is now admitted to inpatient psychiatry unit for further evaluation. Consulted for medical management, tachycardia. Psychosis, paranoid schizophrenia - Management by psychiatry team - CT scan and neurology consult requested by primary team - r/o organic cause of AMS ? - CT scan normal - seen in consultation by Neurology - MRI brain normal, EEG normal. Plan for LP. Follow-up results - ESR and CRP within normal, RPR and HIV within normal. - Continues to be exhibiting catatonia with minimal movement and no verbalization. Might be a candidate for ECT. - Neurology consulted input appreciated. CSF normal, encephalitis antibodies may take 2-3 weeks for results. As per neuro, consider per psychiatric presentation. - Lumbar puncture done today. - CT of the abdomen and pelvis normal examination - CT of the chest unremarkable CT chest. No infiltrate or mass. - As per staff, psychiatrist spoke with father for possible ECT treatment. - Medication adjustment from psychiatry continues for psych management - Medication adjustment done by psychiatry has improved patient's condition slowly. Now communicates more and participates with psych treatment activity. -Awaiting court hearing for ECT treatment. Tachycardia - Most likely related to paranoia and anxiety,increase Propranolol 20mg Q8hrs. - elevated HR may be due in part to dehydration given poor po intake, encourage fluids/increased po intake. Ensure shakes. - TSH WNL. Off IV fluids. - Improving Poor by mouth intake Weight loss - Previously was on tube feeds. - On Megace - Now patient is able to have by mouth intake. -Patient eating well. Calorie count started. will fu. Continue Iv fluids for now. Possible neuroleptic malignant syndrome, with positive muscle rigidity, elevated total creatine kinase and CK, tachycardia, and catatonia. - Discussed with Dr. Marie - likely not NMS. - No appreciable muscle rigidity or tremors noted. - Monitor closely Constipation - Bowel regimen MiraLAX daily, fleets enema when necessary, bisacodyl when necessary BLE pain/discomfort - Bilateral US to r/o DVT negative DVT prophylaxis: encourage ambulation. Naldo Luo MD December 04, 2016 17:51
[2016-12-05] MEDS: LORazepam 2 MG TAB PO SCH ×7 (01:00→19:42)
[2016-12-05 05:09] VITALS: BP 113/65; PULSE 102; RESP 16; TEMP 97.7; O2SAT 99
[2016-12-05] MEDS: PROPRANOLOL HCL 20 MG TAB PO SCH ×3 (06:00→21:04)
[2016-12-05] MEDS: ARIPiprazole 5 MG TAB PO SCH (08:52)
[2016-12-05] MEDS: POLYETHYLENE GLYCOL 17 GM PKG PO SCH (08:52)
[2016-12-05] MEDS: MEGESTROL ACETATE SUSP 400 MG/10 ML CUP PO SCH (08:53)
[2016-12-05] MEDS: ZOLPIDEM TARTRATE 10 MG TAB PO SCH ×2 (08:53→20:02)
[2016-12-05] MEDS: MEMANTINE HCL 5 MG TAB PO SCH (09:00)
[2016-12-05] MEDS: DOCUSATE SODIUM 100 MG CAP PO SCH ×2 (09:00→20:02)
[2016-12-05] MEDS: NYSTAT/DIPHENHY/LIDO MOUTHWASH (Adult) 120ML SWISH-SWAL SCH ×4 (09:00→20:02)
[2016-12-05] MEDS ORDERED: ZOLPIDEM TARTRATE 10 MG TAB PO ONE (10:15)
[2016-12-05] MEDS ORDERED: ARIPiprazole 5 MG TAB PO ONE (10:15)
--- NOTE | 2016-12-05 11:03 | HHI.PR ---
Subjective Remarks as per RN patient has not had a BM last recorded BM is 11/27 patient denies pain denies cp/sob as per sitter patient is eating well Objective Vitals Vital Signs Date Time Temp Pulse Resp B/P Pulse Ox O2 Delivery O2 Flow Rate FiO2 12/05/16 05:09 97.7 102 16 113/65 99 12/04/16 17:01 98.7 134 18 122/81 99 I/O 12/04/16 12/04/16 12/04/16 12/05/16 12/05/16 12/05/16 07:00 15:00 23:00 07:00 15:00 23:00 Intake Total 200 ml 960 ml 420 ml 100 ml Balance 200 ml 960 ml 420 ml 100 ml Intake Oral 960 ml 420 ml 100 ml IV Total 200 ml # Voids 2 3 2 Result Diagram: 12/03/16 1251 12/03/16 1251 Imaging Last Impressions Abdomen X-Ray 11/27/16 0000 Signed Impressions: Service Date/Time: Sunday, November 27, 2016 13:47 - CONCLUSION: No acute abdominal abnormality is identified. Ravi Arriola MD Chest X-Ray 11/23/16 0000 Signed Impressions: Service Date/Time: Wednesday, November 23, 2016 21:48 - CONCLUSION: No evidence of acute cardiopulmonary disease. Ravi Dominguez MD Chest CT 11/15/16 0000 Signed Impressions: Service Date/Time: November 11:20 - CONCLUSION: 1. Unremarkable CT chest. 2. No infiltrate or mass. Prieto Rock MD Abdomen/Pelvis CT 11/15/16 0000 Signed Impressions: Service Date/Time: November 11:13 - CONCLUSION: Normal examination. Rolando Nuñez MD Lumbar Puncture Fluoroscopy 11/14/16 0000 Signed Impressions: Service Date/Time: November 10:46 - CONCLUSION: Uncomplicated fluoroscopically guided lumbar puncture. Florencio Leslie MD Brain MRI 11/09/16 0000 Signed Impressions: Service Date/Time: Wednesday, November 09, 2016 13:26 - CONCLUSION: 1. Small amount of fluid within the sphenoid sinus. The examination is otherwise unremarkable. Bi Berg MD Head CT 11/08/16 0000 Signed Impressions: Service Date/Time: November 18:15 - CONCLUSION: Normal examination. Ravi Ace MD Lower Extremity Ultrasound 11/07/16 0000 Signed Impressions: Service Date/Time: Monday, November 07, 2016 10:57 - CONCLUSION: No evidence of deep venous thrombosis within the lower extremities. Philippe Menendez MD Objective Remarks GENERAL: Well-nourished, well-developed patient INAD. Awake. Sitting in chair in community room. Hypoverbal. SKIN: No rashes, ecchymoses or lesions. Warm and dry. HEENT: Atraumatic. Normocephalic. EOMI. NGT in place. MMM. CARDIOVASCULAR: Tachycardia without murmurs, gallops, or rubs. RESPIRATORY: CTA. Breath sounds equal bilaterally. No wheezes, rales, or rhonchi. GASTROINTESTINAL: Abdomen soft, nondistended. Bowel sounds hypoactive. Patient winces with palpation over her lower abdomen/suprapubic area. MUSCULOSKELETAL: Extremities without clubbing, cyanosis, or edema. Calves are supple bilaterally. NEUROLOGICAL: Awake and alert. No rigidity but slow bradykinetic movements noted. Verbalizing occasionally. Moves all extremities. Procedures 11/15/16 Lumbar Puncture 11/16/16 Dobhoff placement Medications and IVs Current Medications Medications (Trade) Dose Ordered Sig/Tien Route Start Time Stop Time Status Last Admin (Milk Of Magnleonid Liq) 30 ml Q6H PRN PO 10/28/16 15:00 11/27/16 14:42 (Benadryl) 50 mg Q6H PRN PO 10/29/16 17:00 11/09/16 15:01 (Benadryl Inj) 50 mg Q6H PRN IM 10/29/16 17:00 11/13/16 05:20 (Tylenol) 650 mg Q4H PRN PO 10/29/16 17:00 12/02/16 08:46 (Ativan) 2 mg Q6H PRN PO 10/31/16 17:00 11/21/16 16:00 (Zofran Inj) 4 mg Q8HR PRN IV PUSH 11/01/16 13:30 11/28/16 12:58 (Inderal) 20 mg Q8HR PO 11/11/16 14:00 12/04/16 20:40 (NS Flush) 2 ml UNSCH PRN IV FLUSH 11/12/16 14:15 (Namenda) 10 mg DAILY PO 11/21/16 09:00 12/05/16 09:00 (Fleets Enema (Adult)) 133 ml UNSCH PRN RECTAL 11/21/16 15:45 11/22/16 08:49 (Magic Mouthwash Adult Liq) 5 ml QID SWISH-SWAL 11/23/16 18:00 12/05/16 12:10 (Colace) 100 mg BID PO 11/25/16 21:00 12/04/16 20:40 (Miralax) 17 gm DAILY PO 11/27/16 11:30 12/05/16 08:52 (Dulcolax Supp) 10 mg DAILY PRN RECTAL 11/27/16 16:00 Megestrol Acetate 400 mg 400 mg DAILY PO 12/01/16 09:00 12/05/16 08:53 (NS 1000 ml Inj) 1,000 ml @ 50 mls/hr Q20H IV 12/03/16 16:00 12/05/16 13:00 (Ambien) 10 mg Q12HR PO 12/04/16 21:00 12/05/16 08:53 (Ativan) 2 mg Q4HR PO 12/04/16 12:00 12/05/16 12:11 (Abilify) 20 mg DAILY PO 12/06/16 09:00 A/P Problem List: (1) Schizophrenia, paranoid type ICD Code: F20.0 Status: Acute (2) Unspecified psychosis ICD Code: F29 Status: Acute (3) Tachycardia ICD Code: R00.0 Status: Acute (4) Hypokalemia ICD Code: E87.6 Status: Resolved Assessment and Plan Patient is a 21-year-old white female with no known primary medical history who came in to the hospital from [facility] under [place] act secondary to being belligerent at home, acting out raking things and making suicidal statements. As per record, questionable smoking K2 as per nursing staff at [facility]. The patient also refused to give urine specimen for test. 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 Patient is now admitted to inpatient psychiatry unit for further evaluation. Consulted for medical management, tachycardia. Psychosis, paranoid schizophrenia - Management by psychiatry team - CT scan and neurology consult requested by primary team - r/o organic cause of AMS ? - CT scan normal - seen in consultation by Neurology - MRI brain normal, EEG normal. Plan for LP. Follow-up results - ESR and CRP within normal, RPR and HIV within normal. - Continues to be exhibiting catatonia with minimal movement and no verbalization. Might be a candidate for ECT. - Neurology consulted input appreciated. CSF normal, encephalitis antibodies may take 2-3 weeks for results. As per neuro, consider per psychiatric presentation. - Lumbar puncture done today. - CT of the abdomen and pelvis normal examination - CT of the chest unremarkable CT chest. No infiltrate or mass. - As per staff, psychiatrist spoke with father for possible ECT treatment. - Medication adjustment from psychiatry continues for psych management - Medication adjustment done by psychiatry has improved patient's condition slowly. Now communicates more and participates with psych treatment activity. -Awaiting court hearing for ECT treatment. -Patient is on ativan, ambien and abilify. Tachycardia - Most likely related to paranoia and anxiety,increase Propranolol 20mg Q8hrs. - elevated HR may be due in part to dehydration given poor po intake, encourage fluids/increased po intake. Ensure shakes. - TSH WNL. Off IV fluids. - Stable Poor by mouth intake Weight loss - Previously was on tube feeds. - On Megace - Now patient is able to have by mouth intake. -Patient eating well. Calorie count started. will fu. DC IV fluids. Possible neuroleptic malignant syndrome, with positive muscle rigidity, elevated total creatine kinase and CK, tachycardia, and catatonia. - Discussed with Dr. Marie - likely not NMS. - No appreciable muscle rigidity or tremors noted. - Monitor closely. Constipation - Bowel regimen MiraLAX daily, fleets enema when necessary, bisacodyl when necessary BLE pain/discomfort - Bilateral US to r/o DVT negative DVT prophylaxis: encourage ambulation. Naldo Luo MD December 05, 2016 11:02
--- NOTE | 2016-12-05 12:11 | HHI.PYPN ---
Subjective Remarks Patient seen today for psychiatric reevaluation along with nurse in charge Yasemin and dialysis social worker Latrice, patient shows an slight improvement in communication, she was able to answer most of our questions, she share musics that she likes, also emotions about being sick and not be able to see her family daily. Patient says that she would like to go home, but she has to get better before. Patient is oriented 3, and she seems to be cognitively intact. However even though she is more talkative, more attentive and is spontaneous, blocking thought, poverty of speech, negativism, stiffness still persist. Patient has been taking her oral medication and eating her food with encouragement. Yesterday in [place] brake tester agreed to give to her father the power to approve ECT. She was presented to Hospital in [place], but she was declined. Review of Systems Constitutional: DENIES: Diaphoretic episodes, Fatigue, Fever, Weight gain, Weight loss, Chills, Dizziness, Change in appetite, Night Sweats Endocrine: DENIES: Abnorml menstrual pattern, Heat/cold intolerance, Polydipsia , Polyuria, Polyphagia Eyes: DENIES: Blurred vision, Diplopia, Eye inflammation, Eye pain, Vision loss , Photosensitivity, Double Vision Ears, nose, mouth, throat: DENIES: Tinnitus, Hearing loss, Vertigo, Nasal discharge, Oral lesions, Throat pain, Hoarseness, Ear Pain, Running Nose, Epistaxis, Sinus Pain, Toothache, Odynophagia Respiratory: DENIES: Apneas, Cough, Snoring, Wheezing, Hemoptysis, Sputum production, Shortness of breath Cardiovascular: DENIES: Chest pain, Palpitations, Syncope, Dyspnea on Exertion , PND, Lower Extremity Edema, Orthopnea, Claudication Gastrointestinal: DENIES: Abdominal pain, Black stools, Bloody stools, Constipation, Diarrhea, Nausea, Vomiting, Difficulty Swallowing, Anorexia Musculoskeletal: DENIES: Joint pain, Muscle aches, Stiffness, Joint Swelling, Back pain, Neck pain Integumentary: DENIES: Abnormal pigmentation, Pruritus, Rash, Nail changes, Breast masses, Breast skin changes, Nipple discharge Immunologic/allergic: DENIES: Eczema, Urticaria Neurologic: DENIES: Abnormal gait, Headache, Localized weakness, Paresthesias, Seizures, Speech Problems, Tremor, Poor Balance Psychiatric: DENIES: Anxiety, Confusion, Mood changes, Depression, Hallucinations, Agitation, Suicidal Ideation, Homicidal Ideation, Delusions Objective Alert: Yes [place]: Person, Place, Date (partially), Situation Mood: Calm, Oppositional (at times) Affect: Restricted Memory Intact: Comment (Not formally assessed) Hallucinations: Other (patient denies) Delusions: No Delusion Type: Other (not elicited at this time) Suicidal: Ideation (no SI) Homicidal: Ideation (no HI) Insight/Judgment Poor Vitals/IOs Vital Signs Date Time Temp Pulse Resp B/P Pulse Ox O2 Delivery O2 Flow Rate FiO2 12/05/16 05:09 97.7 102 16 113/65 99 Intake and Output 12/04/16 12/04/16 12/05/16 08:00 16:00 00:00 Intake Total 200 ml 960 ml 420 ml Balance 200 ml 960 ml 420 ml Assessment & Plan Problem List: (1) Catatonia ICD Code: F06.1 (2) Unspecified psychosis Assessment & Plan: Patient shows a slight improvement in communication, she seems to be more spontaneous and talkative. Blocking thought, poverty of speech , stiffness, alogia, internal preoccupation still persist. We'll increase the Abilify to 20 mg today for psychosis. Will continue Ativan and Ambien at the current dose. Patient will would be presented to multiple ECT programs Continue encouraging the patient to talk, to participate in group therapies, to eat and take medications. Last Davis&Macho rating scale 24. ICD Code: F29 Assessment & Plan Estimated LOS: days Justification for Cont. Inpt. Patient remains catatonia/psychosis with poor oral intake and Medication, needs to continue inpatient level of care Request HC Surrog/Guard Advoc?: Yes Damian Marie MD December 05, 2016 12:11
--- NOTE | 2016-12-05 12:17 | PD.TTN ---
Present for Treatment Team Treatment Team Staff: Provider, Nurse, Psych Therapist, Occupational Therapist Patient Problems 1. Discharge planning 2. Medication compliance 3. Knowledge deficit 4. 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 Psych Therapist Input: Patient continues to show slow too little progress and will require ECT to move forward with a greater progress. Patient continues to require directives and coaching with her mood and behavior. Patient shows no spontaneous behavior and requires ques to respond. Occupational Therapist Input: Patient participates with some groups Latrice Dc [facility] December 05, 2016 12:17
[2016-12-05] MEDS: SODIUM CHLOR 0.9% 1000 ML INJ 1,000 ML IV SCH (13:00)
[2016-12-05 19:20] VITALS: BP 110/70; PULSE 106; RESP 16; TEMP 97.6; O2SAT 99
[2016-12-06] MEDS: LORazepam 2 MG TAB PO SCH ×6 (00:11→21:16)
[2016-12-06 00:32] VITALS: BP 112/65; PULSE 105
[2016-12-06] MEDS: SODIUM CHLOR 0.9% 1000 ML INJ 1,000 ML IV SCH (03:13)
[2016-12-06 04:00] VITALS: BP 144/68; PULSE 111; RESP 16; TEMP 97.1; O2SAT 98
[2016-12-06 05:02] VITALS: BP 144/68; PULSE 111; RESP 16; TEMP 97.1; O2SAT 98
[2016-12-06] MEDS: PROPRANOLOL HCL 20 MG TAB PO SCH ×3 (05:41→21:21)
[2016-12-06] MEDS ORDERED: ZOLPIDEM TARTRATE 10 MG TAB PO ONE (08:00)
[2016-12-06] MEDS: DOCUSATE SODIUM 100 MG CAP PO SCH ×2 (09:00→21:16)
[2016-12-06] MEDS: MEMANTINE HCL 10 MG TAB PO SCH ×2 (09:00→21:16)
[2016-12-06] MEDS: MEGESTROL ACETATE SUSP 400 MG/10 ML CUP PO SCH (09:00)
[2016-12-06] MEDS: NYSTAT/DIPHENHY/LIDO MOUTHWASH (Adult) 120ML SWISH-SWAL SCH ×4 (10:00→21:16)
[2016-12-06] MEDS: POLYETHYLENE GLYCOL 17 GM PKG PO SCH (10:00)
--- NOTE | 2016-12-06 12:15 | HHI.PYPN ---
Subjective Remarks Patient seen for psychiatric reevaluation today, patient says that she has been doing better, reports okay mood, she has been eating most of her food, but continues to show poverty of speech, marked blocking thought, stiffness, waxy flexibility, episodic confusion. Review of Systems Other Patient doesn't have any somatic complaints Objective Alert: Yes [place]: Person, Place, Date (partially), Situation Mood: Calm, Oppositional (at times) Affect: Restricted Memory Intact: Comment (Not formally assessed) Hallucinations: Other (patient denies) Delusions: No Delusion Type: Other (not elicited at this time) Suicidal: Ideation (no SI) Homicidal: Ideation (no HI) Insight/Judgment Improved Vitals/IOs Vital Signs Date Time Temp Pulse Resp B/P Pulse Ox O2 Delivery O2 Flow Rate FiO2 12/06/16 05:02 97.1 111 16 144/68 98 Intake and Output 12/05/16 12/05/16 12/06/16 08:00 16:00 00:00 Intake Total 100 ml 480 ml 320 ml Balance 100 ml 480 ml 320 ml Assessment & Plan Problem List: (1) Catatonia ICD Code: F06.1 (2) Unspecified psychosis Assessment & Plan: Patient shows a slight improvement in communication, she seems to be more spontaneous and talkative. Blocking thought, poverty of speech , stiffness, alogia, internal preoccupation still persist. We'll continue Abilify to 20 mg today for psychosis. Will continue Ativan and Ambien at the current dose. Patient already presented to multiple ECT programs, waiting for acceptance Continue encouraging the patient to talk, to participate in group therapies, to eat and take medications. ICD Code: F29 Assessment & Plan Estimated LOS: days Justification for Cont. Inpt. Patient acutely catatonic, psychotic needs to continue psychiatric hospitalization for stabilization. Request HC Surrog/Guard Advoc?: Yes Damian Marie MD Dec 06, 2016 12:15
--- NOTE | 2016-12-06 13:02 | HHI.PR ---
Subjective Remarks Follow-up visit catatonia, poor nutrition, tachycardia. Patient seen and examined today. Patient does not respond to my questions today but does smile at me. Per nursing staff she is eating and drinking fairly well. (+) Large BM. Discussed with nursing staff, [place] sheet hanger agreed to give father power to approve ECT. Patient was presented to Hospital in [place] but was declined. She has been presented to multiple other ECT programs and is awaiting acceptance. Objective Vitals Vital Signs Date Time Temp Pulse Resp B/P Pulse Ox O2 Delivery O2 Flow Rate FiO2 12/06/16 05:02 97.1 111 16 144/68 98 12/06/16 04:00 97.1 111 16 144/68 98 12/06/16 00:32 105 112/65 12/05/16 19:20 97.6 106 16 110/70 99 I/O 12/05/16 12/05/16 12/05/16 12/06/16 12/06/16 12/06/16 07:00 15:00 23:00 07:00 15:00 23:00 Intake Total 100 ml 480 ml 320 ml 360 ml 720 ml Output Total 0 ml Balance 100 ml 480 ml 320 ml 360 ml 720 ml Intake Oral 100 ml 480 ml 120 ml 360 ml 720 ml IV Total 200 ml Output Urine Total 0 ml # Voids 2 1 2 # Bowel Movements 1 Result Diagram: 12/03/16 1251 12/03/16 1251 Imaging Last Impressions Abdomen X-Ray 11/27/16 0000 Signed Impressions: Service Date/Time: Sunday, November 27, 2016 13:47 - CONCLUSION: No acute abdominal abnormality is identified. Ravi Arriola MD Chest X-Ray 11/23/16 0000 Signed Impressions: Service Date/Time: Wednesday, November 23, 2016 21:48 - CONCLUSION: No evidence of acute cardiopulmonary disease. Ravi Dominguez MD Chest CT 11/15/16 0000 Signed Impressions: Service Date/Time: November 11:20 - CONCLUSION: 1. Unremarkable CT chest. 2. No infiltrate or mass. Prieto Rock MD Abdomen/Pelvis CT 11/15/16 0000 Signed Impressions: Service Date/Time: November 11:13 - CONCLUSION: Normal examination. Rolando Nuñez MD Lumbar Puncture Fluoroscopy 11/14/16 0000 Signed Impressions: Service Date/Time: November 10:46 - CONCLUSION: Uncomplicated fluoroscopically guided lumbar puncture. Florencio Leslie MD Brain MRI 11/09/16 0000 Signed Impressions: Service Date/Time: Wednesday, November 09, 2016 13:26 - CONCLUSION: 1. Small amount of fluid within the sphenoid sinus. The examination is otherwise unremarkable. Bi Berg MD Head CT 11/08/16 0000 Signed Impressions: Service Date/Time: November 18:15 - CONCLUSION: Normal examination. Ravi Ace MD Lower Extremity Ultrasound 11/07/16 0000 Signed Impressions: Service Date/Time: Monday, November 07, 2016 10:57 - CONCLUSION: No evidence of deep venous thrombosis within the lower extremities. Philippe Menendez MD Objective Remarks GENERAL: Well-nourished, well-developed patient INAD. Awake. Lying in hospital bed. Hypoverbal. SKIN: No rashes, ecchymoses or lesions. Warm and dry. HEENT: Atraumatic. Normocephalic. EOMI. MMM. CARDIOVASCULAR: Tachycardia without murmurs, gallops, or rubs. RESPIRATORY: CTA. Breath sounds equal bilaterally. No wheezes, rales, or rhonchi. GASTROINTESTINAL: Abdomen soft, nontender, nondistended. Bowel sounds normoactive. MUSCULOSKELETAL: Extremities without clubbing, cyanosis, or edema. Calves are supple bilaterally. NEUROLOGICAL: Awake and alert. No rigidity but slow bradykinetic movements noted. Hypoverbal with me today but smiles. Moves all extremities. Procedures 11/15/16 Lumbar Puncture 11/16/16 Dobhoff placement Medications and IVs Current Medications Medications (Trade) Dose Ordered Sig/Tien Route Start Time Stop Time Status Last Admin (Milk Of Magnesia Liq) 30 ml Q6H PRN PO 10/28/16 15:00 11/27/16 14:42 (Benadryl) 50 mg Q6H PRN PO 10/29/16 17:00 11/09/16 15:01 (Benadryl Inj) 50 mg Q6H PRN IM 10/29/16 17:00 11/13/16 05:20 (Tylenol) 650 mg Q4H PRN PO 10/29/16 17:00 12/02/16 08:46 (Ativan) 2 mg Q6H PRN PO 10/31/16 17:00 11/21/16 16:00 (Zofran Inj) 4 mg Q8HR PRN IV PUSH 11/01/16 13:30 11/28/16 12:58 (Inderal) 20 mg Q8HR PO 11/11/16 14:00 12/06/16 05:41 (NS Flush) 2 ml UNSCH PRN IV FLUSH 11/12/16 14:15 (Fleets Enema (Adult)) 133 ml UNSCH PRN RECTAL 11/21/16 15:45 11/22/16 08:49 (Magic Mouthwash Adult Liq) 5 ml QID SWISH-SWAL 11/23/16 18:00 12/06/16 12:22 (Colace) 100 mg BID PO 11/25/16 21:00 12/05/16 20:02 (Miralax) 17 gm DAILY PO 11/27/16 11:30 12/06/16 10:00 (Dulcolax Supp) 10 mg DAILY PRN RECTAL 11/27/16 16:00 Megestrol Acetate 400 mg 400 mg DAILY PO 12/01/16 09:00 12/05/16 08:53 (NS 1000 ml Inj) 1,000 ml @ 50 mls/hr Q20H IV 12/03/16 16:00 12/06/16 03:13 (Ativan) 2 mg Q4HR PO 12/04/16 12:00 12/06/16 12:22 (Abilify) 20 mg DAILY PO 12/06/16 09:00 12/06/16 10:00 (Namenda) 10 mg BID PO 12/06/16 09:00 12/06/16 09:00 A/P Problem List: (1) Schizophrenia, paranoid type ICD Code: F20.0 Status: Acute (2) Unspecified psychosis ICD Code: F29 Status: Acute (3) Tachycardia ICD Code: R00.0 Status: Acute (4) Hypokalemia ICD Code: E87.6 Status: Resolved Assessment and Plan Patient is a 21-year-old white female with no known primary medical history who came in to the hospital from [facility] under [place] act secondary to being belligerent at home, acting out raking things and making suicidal statements. As per record, questionable smoking K2 as per nursing staff at [facility]. The patient also refused to give urine specimen for test. 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 Patient is now admitted to inpatient psychiatry unit for further evaluation. Consulted for medical management, tachycardia. Psychosis, paranoid schizophrenia, catatonia - Management by psychiatry team - CT scan and neurology consult requested by primary team - r/o organic cause of AMS ? - CT scan normal - seen in consultation by Neurology - MRI brain normal, EEG normal. s/p LP. Follow-up results. - ESR and CRP within normal, RPR and HIV within normal. - Continues to be exhibiting catatonia but with improving movement and verbalization. Discussed with Dr. Marie. Patient is candidate for ECT. Family agreeable. Dr. Marie presents to [employer] court. Patient has already been accepted for treatment at facility in [place]. - Neurology consulted input appreciated. CSF normal, CSF paraneoplastic antibodies all negative. Per neuro, please call prn. - CT of the abdomen and pelvis normal examination - CT of the chest unremarkable CT chest. No infiltrate or mass. - Approved by [place] court sheet hanger for ECT treatment. Presented to Hospital in [place] but was declined. Per psychiatry, patient has been presented to multiple other ECT treatment facilities and is awaiting acceptance. - Patient is on Ativan, Ambien and Abilify - current regimen is improved patient's condition, she is able to communicate more and participate with psychiatric treatment activity. Tachycardia - Most likely related to paranoia and anxiety,increase Propranolol 20mg Q8hrs. - elevated HR may be due in part to dehydration given poor po intake, encourage fluids/increased po intake. Ensure shakes. - TSH WNL - continue to monitor HR Poor by mouth intake Weight loss - Continue to encourage by mouth fluid intake - Ensure shakes - Previously on tube feeds - By mouth intake has improved. Eating well. Calorie counts started. - discontinue IVF - Continue on Megace Possible neuroleptic malignant syndrome, with positive muscle rigidity, elevated total creatine kinase and CK, tachycardia, and catatonia. - Total creatinine kinase needs hydration. CK 162 --> 342 --> 445 --> 533 -- > 357 --> 358 - Discussed with Dr. Marie - likely not NMS. - No appreciable muscle rigidity or tremors noted. - Monitor closely. Constipation - (+)BM - Continue Miralax daily - monitor for BM DVT prophylaxis - Encourage ambulation. Discussed with patient, nursing, Dr. Rayna Holder,Carol KARIMI Dec 06, 2016 13:02
[2016-12-06 17:00] VITALS: BP 105/72; PULSE 102; RESP 16; TEMP 98.2; O2SAT 97
[2016-12-07] MEDS: LORazepam 2 MG TAB PO SCH ×7 (03:59→23:26)
[2016-12-07 05:01] VITALS: PULSE 98
[2016-12-07] MEDS: PROPRANOLOL HCL 20 MG TAB PO SCH ×3 (05:01→20:50)
[2016-12-07 05:27] VITALS: BP 127/79; PULSE 124; RESP 17; TEMP 97.4; O2SAT 99
[2016-12-07] MEDS ORDERED: ZOLPIDEM TARTRATE 10 MG TAB PO ONE (08:00)
[2016-12-07] MEDS: POLYETHYLENE GLYCOL 17 GM PKG PO SCH (08:44)
[2016-12-07] MEDS: MEMANTINE HCL 10 MG TAB PO SCH ×2 (08:44→20:50)
[2016-12-07] MEDS: NYSTAT/DIPHENHY/LIDO MOUTHWASH (Adult) 120ML SWISH-SWAL SCH ×4 (08:58→20:50)
[2016-12-07] MEDS: DOCUSATE SODIUM 100 MG CAP PO SCH ×2 (08:58→20:50)
[2016-12-07] MEDS: MEGESTROL ACETATE SUSP 400 MG/10 ML CUP PO SCH (08:58)
--- NOTE | 2016-12-07 12:06 | HHI.PYPN ---
Subjective Remarks Patient was seen today for psychiatric reevaluation alone with nurse in charge Mani and and social insurance adviser Latrice. Patient is seen in the workman where she has been walking and exercising with one-to-one sitter. Patient still has significant stiffness, difficulty ambulating independently, waxy flexibility, blocking thought, poverty of speech, but definitely with some significant improvement in her psychomotor retardation, her verbal communication and her eating. Patient is now eating over 75% of her food. Taking her by mouth medication with no problem. She is oriented 3, she can answer to simple questions without no problems. This morning she has been witnessed dancing and singing some songs. Review of Systems Other No somatic complaints Objective Alert: Yes Central: Person, Place, Date (partially), Situation Mood: Calm, Oppositional (at times) Affect: Restricted Memory Intact: Comment (Not formally assessed) Hallucinations: Other (patient denies) Delusions: No Delusion Type: Other (not elicited at this time) Suicidal: Ideation (no SI) Homicidal: Ideation (no HI) Insight/Judgment Poor Vitals/IOs Vital Signs Date Time Temp Pulse Resp B/P Pulse Ox O2 Delivery O2 Flow Rate FiO2 12/07/16 05:27 97.4 124 17 127/79 99 Intake and Output 12/06/16 12/06/16 12/07/16 08:00 16:00 00:00 Intake Total 360 ml 1680 ml 720 ml Output Total 0 ml 3 ml Balance 360 ml 1680 ml 717 ml Assessment & Plan Problem List: (1) Catatonia Assessment & Plan: Patient shows periodic significant improvement of her catatonic symptoms after challenges of Ambien 20 mg. We will continue Ativan 2 mg by mouth every 4 hours for catatonic symptoms. Namenda 10 mg twice a day to help with catatonia, NMDA antagosnims can potentiate the effect of GABAergic drugs. Continue Abilify 20 mg daily for underlying psychosis, but also because Abilify is dopaminergic partial antagonism can also help with catatonia. Davis&Macho rating scale on 11/22/2016 was 19 compare with 35 on 11/15/2016, 21 on 12/04/2016 In special hearing the Aircraft Avionics Technician gave permission to her father to sign for ECT. Patient has been presented to 3 different is in the facilities. If patient cannot start ECT in the next days and catatonia doesn't improve, and since the patient is now compliant with by mouth medications, my considered to start Clozaril. This possibility have been fully discussed with family members.. ICD Code: F06.1 (2) Unspecified psychosis ICD Code: F29 Assessment & Plan Estimated LOS: days Justification for Cont. Inpt. Patient remains catatonia/psychotic and is to continue psychiatric hospitalization for stabilization and safety. Request HC Surrog/Guard Advoc?: Yes Damian Marie MD Dec 07, 2016 12:06
--- NOTE | 2016-12-07 13:13 | HHI.PR ---
Subjective Remarks Follow-up visit catatonia, poor nutrition, tachycardia. Patient seen and examined today. Patient went outside for an hour today and participate with activities. Patient was witnessed dancing and seeing songs.. She is complaining of some dizziness now. Unable to ascertain if patient has any associated headache, shortness of breath or chest pain. Reportedly, patient ate about 75% of her breakfast. Objective Vitals Vital Signs Date Time Temp Pulse Resp B/P Pulse Ox O2 Delivery O2 Flow Rate FiO2 12/07/16 05:27 97.4 124 17 127/79 99 12/07/16 05:01 98 12/06/16 17:00 98.2 102 16 105/72 97 I/O 12/06/16 12/06/16 12/06/16 12/07/16 12/07/16 12/07/16 07:00 15:00 23:00 07:00 15:00 23:00 Intake Total 360 ml 1680 ml 720 ml 480 ml Output Total 0 ml 3 ml 1 ml Balance 360 ml 1680 ml 717 ml -1 ml 480 ml Intake Oral 360 ml 1680 ml 720 ml 480 ml Output Urine Total 0 ml Stool Total 3 ml 1 ml # Voids 2 5 2 # Bowel Movements 1 Result Diagram: 12/03/16 1251 12/03/16 1251 Imaging Last Impressions Abdomen X-Ray 11/27/16 0000 Signed Impressions: Service Date/Time: Sunday, November 27, 2016 13:47 - CONCLUSION: No acute abdominal abnormality is identified. Ravi Arriola MD Chest X-Ray 11/23/16 0000 Signed Impressions: Service Date/Time: Wednesday, November 23, 2016 21:48 - CONCLUSION: No evidence of acute cardiopulmonary disease. Ravi Dominguez MD Chest CT 11/15/16 0000 Signed Impressions: Service Date/Time: November 11:20 - CONCLUSION: 1. Unremarkable CT chest. 2. No infiltrate or mass. Prieto Rock MD Abdomen/Pelvis CT 11/15/16 0000 Signed Impressions: Service Date/Time: November 11:13 - CONCLUSION: Normal examination. Rolando Nuñez MD Lumbar Puncture Fluoroscopy 11/14/16 0000 Signed Impressions: Service Date/Time: November 10:46 - CONCLUSION: Uncomplicated fluoroscopically guided lumbar puncture. Florencio Leslie MD Brain MRI 11/09/16 0000 Signed Impressions: Service Date/Time: Wednesday, November 09, 2016 13:26 - CONCLUSION: 1. Small amount of fluid within the sphenoid sinus. The examination is otherwise unremarkable. Bi Berg MD Head CT 11/08/16 0000 Signed Impressions: Service Date/Time: November 18:15 - CONCLUSION: Normal examination. Ravi Ace MD Lower Extremity Ultrasound 11/07/16 0000 Signed Impressions: Service Date/Time: Monday, November 07, 2016 10:57 - CONCLUSION: No evidence of deep venous thrombosis within the lower extremities. Philippe Menendez MD Objective Remarks GENERAL: Well-nourished, well-developed patient INAD. Awake. Sitting in bedside chair. SKIN: No rashes, ecchymoses or lesions. Warm and dry. HEENT: Atraumatic. Normocephalic. EOMI. MMM. CARDIOVASCULAR: Tachycardia without murmurs, gallops, or rubs. RESPIRATORY: CTA. Breath sounds equal bilaterally. No wheezes, rales, or rhonchi. GASTROINTESTINAL: Abdomen soft, nontender, nondistended. Bowel sounds normoactive. MUSCULOSKELETAL: Extremities without clubbing, cyanosis, or edema. Calves are supple bilaterally. NEUROLOGICAL: Awake and alert. No rigidity but slow bradykinetic movements noted. Stiff movements of all extremities. Procedures 11/15/16 Lumbar Puncture 11/16/16 Dobhoff placement Medications and IVs Current Medications Medications (Trade) Dose Ordered Sig/Tien Route Start Time Stop Time Status Last Admin (Milk Of Magnesia Liq) 30 ml Q6H PRN PO 10/28/16 15:00 11/27/16 14:42 (Benadryl) 50 mg Q6H PRN PO 10/29/16 17:00 11/09/16 15:01 (Benadryl Inj) 50 mg Q6H PRN IM 10/29/16 17:00 11/13/16 05:20 (Tylenol) 650 mg Q4H PRN PO 10/29/16 17:00 12/02/16 08:46 (Ativan) 2 mg Q6H PRN PO 10/31/16 17:00 11/21/16 16:00 (Zofran Inj) 4 mg Q8HR PRN IV PUSH 11/01/16 13:30 11/28/16 12:58 (Inderal) 20 mg Q8HR PO 11/11/16 14:00 12/06/16 13:29 (NS Flush) 2 ml UNSCH PRN IV FLUSH 11/12/16 14:15 (Fleets Enema (Adult)) 133 ml UNSCH PRN RECTAL 11/21/16 15:45 11/22/16 08:49 (Magic Mouthwash Adult Liq) 5 ml QID SWISH-SWAL 11/23/16 18:00 12/06/16 21:16 (Colace) 100 mg BID PO 11/25/16 21:00 12/06/16 21:16 (Miralax) 17 gm DAILY PO 11/27/16 11:30 12/07/16 08:44 (Dulcolax Supp) 10 mg DAILY PRN RECTAL 11/27/16 16:00 (Megace Liq) 400 mg DAILY PO 12/01/16 09:00 12/05/16 08:53 (Ativan) 2 mg Q4HR PO 12/04/16 12:00 12/07/16 08:44 (Abilify) 20 mg DAILY PO 12/06/16 09:00 12/07/16 08:43 (Namenda) 10 mg BID PO 12/06/16 09:00 12/07/16 08:44 A/P Problem List: (1) Schizophrenia, paranoid type ICD Code: F20.0 Status: Acute (2) Unspecified psychosis ICD Code: F29 Status: Acute (3) Tachycardia ICD Code: R00.0 Status: Acute (4) Hypokalemia ICD Code: E87.6 Status: Resolved Assessment and Plan Patient is a 21-year-old white female with no known primary medical history who came in to the hospital from [facility] under [place] act secondary to being belligerent at home, acting out raking things and making suicidal statements. As per record, questionable smoking K2 as per nursing staff at [facility]. The patient also refused to give urine specimen for test. 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 Patient is now admitted to inpatient psychiatry unit for further evaluation. Consulted for medical management, tachycardia. Psychosis, paranoid schizophrenia, catatonia - Management by psychiatry team - CT scan and neurology consult requested by primary team - r/o organic cause of AMS ? - CT scan normal - seen in consultation by Neurology - MRI brain normal, EEG normal. s/p LP. Follow-up results. - ESR and CRP within normal, RPR and HIV within normal. - Continues to be exhibiting catatonia but with improving movement and verbalization. Discussed with Dr. Marie. Patient is candidate for ECT. Family agreeable. Dr. Marie presents to [employer] [facility]. Patient has already been accepted for treatment at facility in [place]. - Neurology consulted input appreciated. CSF normal, CSF paraneoplastic antibodies all negative. Per neuro, please call prn. - CT of the abdomen and pelvis normal examination - CT of the chest unremarkable CT chest. No infiltrate or mass. - Approved by [employer] [facility] it security manager for ECT treatment. Presented to Hospital in [place] but was declined. Per psychiatry, patient has been presented to multiple other ECT treatment facilities and is awaiting acceptance. - Patient is on Ativan, Ambien and Abilify - current regimen is improved patient's condition, she is able to communicate more and participate with psychiatric treatment activity. Tachycardia - Continue Propranolol 20mg Q8hrs. - increased since discontinuation of IVF. Now with complaints of dizziness. Likely due to poor po intake/dehydration. Continue to encourage po/fluid intake. Resume IVF. - TSH WNL - continue to monitor HR Poor by mouth intake Weight loss - Continue to encourage by mouth fluid intake - Ensure shakes - Previously on tube feeds - By mouth intake has improved. Eating well. Calorie counts completed. Adequate intake. Dietitian following. - as above, resume IVF - Continue on Megace Possible neuroleptic malignant syndrome, with positive muscle rigidity, elevated total creatine kinase and CK, tachycardia, and catatonia. - Total creatinine kinase needs hydration. CK 162 --> 342 --> 445 --> 533 -- > 357 --> 358 - Discussed with Dr. Marie - likely not NMS. - No appreciable muscle rigidity or tremors noted. - Monitor closely. Constipation - (+)BM yesterday - Continue Miralax daily - monitor for BM DVT prophylaxis - Encourage ambulation. Discussed with patient, nursing, Carol Kilgore Dec 07, 2016 13:13
[2016-12-07] MEDS: SODIUM CHLOR 0.9% 1000 ML INJ 1,000 ML IV SCH (15:15)
[2016-12-07 17:01] VITALS: BP 105/58; PULSE 132; RESP 18; TEMP 98.2; O2SAT 96
[2016-12-08] MEDS: diphenhydrAMINE HCL 50 MG CAP PO PRN (01:54)
[2016-12-08] MEDS: LORazepam 2 MG TAB PO PRN (01:55)
[2016-12-08] MEDS: LORazepam 2 MG TAB PO SCH ×5 (04:00→20:00)
[2016-12-08 05:52] VITALS: BP 107/68; PULSE 111; RESP 16; O2SAT 100
[2016-12-08] MEDS: PROPRANOLOL HCL 20 MG TAB PO SCH ×3 (07:13→22:00)
[2016-12-08] MEDS: MEMANTINE HCL 10 MG TAB PO SCH ×2 (08:15→21:00)
[2016-12-08] MEDS: DOCUSATE SODIUM 100 MG CAP PO SCH ×2 (08:27→21:00)
[2016-12-08] MEDS: POLYETHYLENE GLYCOL 17 GM PKG PO SCH (08:28)
[2016-12-08] MEDS: NYSTAT/DIPHENHY/LIDO MOUTHWASH (Adult) 120ML SWISH-SWAL SCH (08:28)
[2016-12-08] MEDS: MEGESTROL ACETATE SUSP 400 MG/10 ML CUP PO SCH (09:00)
[2016-12-08] MEDS: SODIUM CHLOR 0.9% 1000 ML INJ 1,000 ML IV SCH (11:10)
[2016-12-08] MEDS ORDERED: BISACODYL 10 MG SUPP RECTAL ONE (14:30)
--- NOTE | 2016-12-08 14:31 | HHI.PR ---
Subjective Remarks Follow-up visit catatonia, poor nutrition, tachycardia. Patient seen and examined today. Patient is complaining of abdominal pain. She denies any dysuria. No BM x 2 days. No fever, chills, nausea or vomiting. Still not drinking very much. Objective Vitals Vital Signs Date Time Temp Pulse Resp B/P Pulse Ox O2 Delivery O2 Flow Rate FiO2 12/08/16 05:52 111 16 107/68 100 12/07/16 17:01 98.2 132 18 105/58 96 I/O 12/07/16 12/07/16 12/07/16 12/08/16 12/08/16 12/08/16 07:00 15:00 23:00 07:00 15:00 23:00 Intake Total 960 ml 1080 ml 240 ml Output Total 1 ml 1 ml Balance -1 ml 960 ml 1079 ml 240 ml Intake Oral 960 ml 1080 ml 240 ml Stool Total 1 ml 1 ml # Voids 2 2 1 Imaging Last Impressions Abdomen X-Ray 11/27/16 0000 Signed Impressions: Service Date/Time: Sunday, November 27, 2016 13:47 - CONCLUSION: No acute abdominal abnormality is identified. Ravi Arriola MD Chest X-Ray 11/23/16 0000 Signed Impressions: Service Date/Time: Wednesday, November 23, 2016 21:48 - CONCLUSION: No evidence of acute cardiopulmonary disease. Ravi Dominguez MD Chest CT 11/15/16 0000 Signed Impressions: Service Date/Time: November 11:20 - CONCLUSION: 1. Unremarkable CT chest. 2. No infiltrate or mass. Prieto Rock MD Abdomen/Pelvis CT 11/15/16 0000 Signed Impressions: Service Date/Time: November 11:13 - CONCLUSION: Normal examination. Rolando Nuñez MD Lumbar Puncture Fluoroscopy 11/14/16 0000 Signed Impressions: Service Date/Time: November 10:46 - CONCLUSION: Uncomplicated fluoroscopically guided lumbar puncture. Florencio Leslie MD Brain MRI 11/09/16 0000 Signed Impressions: Service Date/Time: Wednesday, November 09, 2016 13:26 - CONCLUSION: 1. Small amount of fluid within the sphenoid sinus. The examination is otherwise unremarkable. Bi Berg MD Head CT 11/08/16 0000 Signed Impressions: Service Date/Time: November 18:15 - CONCLUSION: Normal examination. Ravi Ace MD Lower Extremity Ultrasound 11/07/16 0000 Signed Impressions: Service Date/Time: Monday, November 07, 2016 10:57 - CONCLUSION: No evidence of deep venous thrombosis within the lower extremities. Philippe Menendez MD Objective Remarks GENERAL: Well-nourished, well-developed patient INAD. Awake. Lying in hospital bed. SKIN: No rashes, ecchymoses or lesions. Warm and dry. HEENT: Atraumatic. Normocephalic. EOMI. MMM. CARDIOVASCULAR: Tachycardia without murmurs, gallops, or rubs. RESPIRATORY: CTA. Breath sounds equal bilaterally. No wheezes, rales, or rhonchi. GASTROINTESTINAL: Abdomen soft and nondistended. (+)tenderness to palpation over lower abdomen. Bowel sounds normoactive. MUSCULOSKELETAL: Extremities without clubbing, cyanosis, or edema. Calves are supple bilaterally. NEUROLOGICAL: Awake and alert. No rigidity but slow bradykinetic movements noted. Stiff movements of all extremities. Procedures 11/15/16 Lumbar Puncture 11/16/16 Dobhoff placement Medications and IVs Current Medications Medications (Trade) Dose Ordered Sig/Tien Route Start Time Stop Time Status Last Admin (Milk Of Magnleonid Liq) 30 ml Q6H PRN PO 10/28/16 15:00 11/27/16 14:42 (Benadryl) 50 mg Q6H PRN PO 10/29/16 17:00 12/08/16 01:54 (Benadryl Inj) 50 mg Q6H PRN IM 10/29/16 17:00 11/13/16 05:20 (Tylenol) 650 mg Q4H PRN PO 10/29/16 17:00 12/02/16 08:46 (Ativan) 2 mg Q6H PRN PO 10/31/16 17:00 12/08/16 01:55 (Zofran Inj) 4 mg Q8HR PRN IV PUSH 11/01/16 13:30 11/28/16 12:58 (Inderal) 20 mg Q8HR PO 11/11/16 14:00 12/08/16 07:13 (NS Flush) 2 ml UNSCH PRN IV FLUSH 11/12/16 14:15 (Fleets Enema (Adult)) 133 ml UNSCH PRN RECTAL 11/21/16 15:45 11/22/16 08:49 (Colace) 100 mg BID PO 11/25/16 21:00 12/07/16 20:50 (Miralax) 17 gm DAILY PO 11/27/16 11:30 12/08/16 08:28 (Dulcolax Supp) 10 mg DAILY PRN RECTAL 11/27/16 16:00 (Megace Liq) 400 mg DAILY PO 12/01/16 09:00 12/08/16 09:00 (Ativan) 2 mg Q4HR PO 12/04/16 12:00 12/08/16 11:11 (Abilify) 20 mg DAILY PO 12/06/16 09:00 12/08/16 08:15 Memantine 10 mg 10 mg BID PO 12/06/16 09:00 12/08/16 08:15 (NS 1000 ml Inj) 1,000 ml @ 50 mls/hr Q20H IV 12/07/16 15:15 12/08/16 11:10 A/P Problem List: (1) Schizophrenia, paranoid type ICD Code: F20.0 Status: Acute (2) Unspecified psychosis ICD Code: F29 Status: Acute (3) Tachycardia ICD Code: R00.0 Status: Acute (4) Hypokalemia ICD Code: E87.6 Status: Resolved Assessment and Plan Patient is a 21-year-old white female with no known primary medical history who came in to the hospital from [facility] under [place] act secondary to being belligerent at home, acting out raking things and making suicidal statements. As per record, questionable smoking K2 as per nursing staff at [facility] [place]. The patient also refused to give urine specimen for test. 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 Patient is now admitted to inpatient psychiatry unit for further evaluation. Consulted for medical management, tachycardia. Psychosis, paranoid schizophrenia, catatonia - Management by psychiatry team - CT scan and neurology consult requested by primary team - r/o organic cause of AMS ? - CT scan normal - seen in consultation by Neurology - MRI brain normal, EEG normal. s/p LP. Follow-up results. - ESR and CRP within normal, RPR and HIV within normal. - Continues to be exhibiting catatonia but with improving movement and verbalization. Discussed with Dr. Marie. Patient is candidate for ECT. Family agreeable. Dr. Marie presents to [employer] [facility]. Patient has already been accepted for treatment at facility in [place]. - Neurology consulted input appreciated. CSF normal, CSF paraneoplastic antibodies all negative. Per neuro, please call prn. - CT of the abdomen and pelvis normal examination - CT of the chest unremarkable CT chest. No infiltrate or mass. - Approved by [facility] cureman for ECT treatment. Presented to Hospital in [place] but was declined. Per psychiatry, patient has been presented to multiple other ECT treatment facilities and is awaiting acceptance. - Patient is on Ativan, Ambien and Abilify - current regimen is improved patient's condition, she is able to communicate more and participate with psychiatric treatment activity. Tachycardia - Continue Propranolol 20mg Q8hrs. - in part likely due to poor po intake/dehydration. - continue to encourage po/fluid intake - continue IVF hydration - TSH WNL - continue to monitor HR Poor by mouth intake Weight loss - Continue to encourage by mouth fluid intake - Ensure shakes - Previously on tube feeds - By mouth intake has improved. Eating well. Calorie counts completed. Adequate intake. Dietitian following. - Continue on Megace Possible neuroleptic malignant syndrome, with positive muscle rigidity, elevated total creatine kinase and CK, tachycardia, and catatonia. - Total creatinine kinase needs hydration. CK 162 --> 342 --> 445 --> 533 -- > 357 --> 358 - Discussed with Dr. Marie - likely not NMS. - No appreciable muscle rigidity or tremors noted. - Monitor closely. Constipation with abdominal pain - no BM x 2 days. - Continue Miralax daily - add suppository now - monitor for BM DVT prophylaxis - Encourage ambulation. Discussed with patient, nursing, Carol Kilgore Dec 08, 2016 14:31
--- NOTE | 2016-12-08 17:04 | HHI.PYPN ---
Subjective Remarks Patient seen and examined with nurseAvery. Chart reviewed. Oral intake 15-20 % today but was better yesterday. Case discussed with nursing staff. On my examination today, patient presents as psychomotor retarded with significant thought blocking and poverty of speech and thought. She does with some prompting by her sitter say that she got a bath and walked around a little bit, although this may in fact be echophenomena. Appears internally preoccupied but less overtly fearful than when I have seen her in the past. No reported side effects from meds. No physical complaints. Review of Systems ROS Limitations: Psychotic, Poor Historian Except as stated in HPI: all other systems reviewed are Neg Objective Alert: Yes [place]: Person, Place Mood: Calm Affect: Flat Memory Intact: Comment (Not formally assessed) Hallucinations: Other (appears somewhat internally preoccupied) Delusions: No Delusion Type: Other (no angelique delusions) Suicidal: Ideation (no SI) Homicidal: Ideation (no HI) Insight/Judgment Poor Remarks Psychomotor retardation present. Some posturing noted. Thought blocking present. Grooming and hygiene fair with staff assistance. Minimal speech, and only when prompted. Labs Labs reviewed. Vitals/IOs Vital Signs Date Time Temp Pulse Resp B/P Pulse Ox O2 Delivery O2 Flow Rate FiO2 12/08/16 05:52 111 16 107/68 100 12/07/16 17:01 98.2 Intake and Output 12/07/16 12/07/16 12/08/16 08:00 16:00 00:00 Intake Total 960 ml 1080 ml Output Total 1 ml 1 ml Balance -1 ml 960 ml 1079 ml Assessment & Plan Problem List: (1) Catatonia ICD Code: F06.1 (2) Unspecified psychosis ICD Code: F29 Assessment & Plan Gently titrate Abilify 25 mg daily to target psychosis. Continue scheduled Ativan for catatonia. I see that Dr. Marie is considering a clozapine trial versus ECT. Continue to monitor on the inpatient unit. Hospitalist input noted and appreciated. Continue other medications and care as ordered. Justification for Cont. Inpt. Impairment in self-care. Impairment in reality construction. Medication changes in process. High risk for decompensation and a less restrictive environment. Discharge Planning Pending psychiatric stabilization. Request HC Surrog/Guard Advoc?: Yes August Khan MD Dec 08, 2016 17:04
[2016-12-08 20:00] VITALS: BP 112/69; PULSE 116; RESP 16; TEMP 98.1; O2SAT 99
[2016-12-09] MEDS: LORazepam 2 MG TAB PO SCH ×6 (04:00→20:10)
[2016-12-09] MEDS: PROPRANOLOL HCL 20 MG TAB PO SCH (06:00)
[2016-12-09 06:27] VITALS: BP 127/76; PULSE 110; RESP 18; TEMP 98.4; O2SAT 100
[2016-12-09] MEDS: SODIUM CHLOR 0.9% 1000 ML INJ 1,000 ML IV SCH (07:15)
[2016-12-09] MEDS: POLYETHYLENE GLYCOL 17 GM PKG PO SCH (08:49)
[2016-12-09] MEDS: MEGESTROL ACETATE SUSP 400 MG/10 ML CUP PO SCH (08:49)
[2016-12-09] MEDS: MEMANTINE HCL 10 MG TAB PO SCH ×2 (08:49→20:10)
[2016-12-09] MEDS: DOCUSATE SODIUM 100 MG CAP PO SCH ×2 (08:49→20:10)
[2016-12-09] MEDS ORDERED: ARIPiprazole 5 MG TAB PO SCH (09:00)
--- NOTE | 2016-12-09 11:59 | HHI.PR ---
Subjective Remarks Follow-up visit catatonia, poor nutrition, tachycardia. Patient seen and examined today. She reports some mild dizziness and bilateral foot pain. Denies any headache or vision changes. No chest pain or SOB. (+)large BM per nursing staff. Patient denies any N/V or abdominal pain. Persistent bradykinetic movements but she is more responsive today. Objective Vitals Vital Signs Date Time Temp Pulse Resp B/P Pulse Ox O2 Delivery O2 Flow Rate FiO2 12/09/16 06:27 98.4 110 18 127/76 100 12/08/16 20:00 98.1 116 16 112/69 99 I/O 12/08/16 12/08/16 12/08/16 12/09/16 12/09/16 12/09/16 07:00 15:00 23:00 07:00 15:00 23:00 Intake Total 480 ml 120 ml 519 ml 240 ml Balance 480 ml 120 ml 519 ml 240 ml Intake Oral 480 ml 120 ml 519 ml 240 ml # Voids 1 1 1 # Bowel Movements 1 Imaging Last Impressions Abdomen X-Ray 11/27/16 0000 Signed Impressions: Service Date/Time: Sunday, November 27, 2016 13:47 - CONCLUSION: No acute abdominal abnormality is identified. Ravi Arriola MD Chest X-Ray 11/23/16 0000 Signed Impressions: Service Date/Time: Wednesday, November 23, 2016 21:48 - CONCLUSION: No evidence of acute cardiopulmonary disease. Ravi Dominguez MD Chest CT 11/15/16 0000 Signed Impressions: Service Date/Time: November 11:20 - CONCLUSION: 1. Unremarkable CT chest. 2. No infiltrate or mass. Prieto Rock MD Abdomen/Pelvis CT 11/15/16 0000 Signed Impressions: Service Date/Time: November 11:13 - CONCLUSION: Normal examination. Rolando Nuñez MD Lumbar Puncture Fluoroscopy 11/14/16 0000 Signed Impressions: Service Date/Time: November 10:46 - CONCLUSION: Uncomplicated fluoroscopically guided lumbar puncture. Florencio Leslie MD Brain MRI 11/09/16 Signed Impressions: Service Date/Time: Wednesday, November 09, 2016 13:26 - CONCLUSION: 1. Small amount of fluid within the sphenoid sinus. The examination is otherwise unremarkable. Bi Berg MD Head CT 11/08/16 0000 Signed Impressions: Service Date/Time: November 18:15 - CONCLUSION: Normal examination. Ravi Aec MD Lower Extremity Ultrasound 11/07/16 0000 Signed Impressions: Service Date/Time: Monday, November 07, 2016 10:57 - CONCLUSION: No evidence of deep venous thrombosis within the lower extremities. Philippe Menendez MD Objective Remarks GENERAL: Well-nourished, well-developed patient INAD. Awake. Lying in hospital bed. SKIN: No rashes, ecchymoses or lesions. Warm and dry. HEENT: Atraumatic. Normocephalic. EOMI. MMM. CARDIOVASCULAR: Tachycardia without murmurs, gallops, or rubs. RESPIRATORY: CTA. Breath sounds equal bilaterally. No wheezes, rales, or rhonchi. GASTROINTESTINAL: Abdomen soft and nondistended and nontender to palpation. Bowel sounds normoactive. MUSCULOSKELETAL: Extremities without clubbing, cyanosis, or edema. Calves are supple bilaterally. Bilateral feet nontender to palpation. NEUROLOGICAL: Awake and alert. No rigidity but slow bradykinetic movements noted. Stiff movements of all extremities. Procedures 11/15/16 Lumbar Puncture 11/16/16 Dobhoff placement Medications and IVs Current Medications Medications (Trade) Dose Ordered Sig/Tien Route Start Time Stop Time Status Last Admin (Milk Of Magnesia Liq) 30 ml Q6H PRN PO 10/28/16 15:00 11/27/16 14:42 (Benadryl) 50 mg Q6H PRN PO 10/29/16 17:00 12/08/16 01:54 (Benadryl Inj) 50 mg Q6H PRN IM 10/29/16 17:00 11/13/16 05:20 (Tylenol) 650 mg Q4H PRN PO 10/29/16 17:00 12/02/16 08:46 (Ativan) 2 mg Q6H PRN PO 10/31/16 17:00 12/08/16 01:55 (Zofran Inj) 4 mg Q8HR PRN IV PUSH 11/01/16 13:30 11/28/16 12:58 (NS Flush) 2 ml UNSCH PRN IV FLUSH 5/8/17 14:15 (Fleets Enema (Adult)) 133 ml UNSCH PRN RECTAL 11/21/16 15:45 11/22/16 08:49 (Colace) 100 mg BID PO 11/25/16 21:00 12/07/16 20:50 (Miralax) 17 gm DAILY PO 11/27/16 11:30 12/09/16 08:49 (Dulcolax Supp) 10 mg DAILY PRN RECTAL 11/27/16 16:00 (Megace Liq) 400 mg DAILY PO 12/01/16 09:00 12/09/16 08:49 (Ativan) 2 mg Q4HR PO 12/04/16 12:00 12/09/16 08:00 Memantine 10 mg 10 mg BID PO 12/06/16 09:00 12/09/16 08:49 (NS 1000 ml Inj) 1,000 ml @ 50 mls/hr Q20H IV 12/07/16 15:15 12/09/16 07:15 (Abilify) 25 mg DAILY PO 12/09/16 09:00 12/09/16 08:47 (Lopressor) 25 mg Q12HR PO 12/09/16 21:00 A/P Problem List: (1) Schizophrenia, paranoid type ICD Code: F20.0 Status: Acute (2) Unspecified psychosis ICD Code: F29 Status: Acute (3) Tachycardia ICD Code: R00.0 Status: Acute (4) Hypokalemia ICD Code: E87.6 Status: Resolved Assessment and Plan Patient is a 21-year-old white female with no known primary medical history who came in to the hospital from [facility] under [place] act secondary to being belligerent at home, acting out raking things and making suicidal statements. As per record, questionable smoking K2 as per nursing staff at [facility]. The patient also refused to give urine specimen for test. 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 Patient is now admitted to inpatient psychiatry unit for further evaluation. Consulted for medical management, tachycardia. Psychosis, paranoid schizophrenia, catatonia - Management by psychiatry team - CT scan and neurology consult requested by primary team - r/o organic cause of AMS ? - CT scan normal - seen in consultation by Neurology - MRI brain normal, EEG normal. s/p LP. Follow-up results. - ESR and CRP within normal, RPR and HIV within normal. - Continues to be exhibiting catatonia but with improving movement and verbalization. Discussed with Dr. Marie. Patient is candidate for ECT. Family agreeable. Dr. Marie presents to [employer] [facility]. Patient has already been accepted for treatment at facility in [place]. - Neurology consulted input appreciated. CSF normal, CSF paraneoplastic antibodies all negative. Per neuro, please call prn. - CT of the abdomen and pelvis normal examination - CT of the chest unremarkable CT chest. No infiltrate or mass. - Approved by [employer] court feeder associate for ECT treatment. Presented to Hospital in [place] but was declined. Per psychiatry, patient has been presented to multiple other ECT treatment facilities and is awaiting acceptance. - Patient is on Ativan, Ambien and Abilify - current regimen is improved patient's condition, she is able to communicate more and participate with psychiatric treatment activity. Tachycardia - Persistent despite propanolol use - in part likely due to poor po intake/dehydration. - continue to encourage po/fluid intake - continue IVF hydration - TSH WNL - Discontinue propranolol. Changed to metoprolol 25 mg twice a day - monitor HR response. Poor by mouth intake Weight loss - Continue to encourage by mouth fluid intake - Ensure shakes - Previously on tube feeds - By mouth intake has improved. Eating well. Calorie counts completed. Adequate intake. Dietitian following. - Continue on Megace Possible neuroleptic malignant syndrome, with positive muscle rigidity, elevated total creatine kinase and CK, tachycardia, and catatonia. - Total creatinine kinase needs hydration. CK 162 --> 342 --> 445 --> 533 -- > 357 --> 358 - Discussed with Dr. Marie - likely not NMS. - No appreciable muscle rigidity or tremors noted. - Monitor closely. Constipation - (+)large BM. Abdominal pain resolved. - Continue Miralax daily - Continue Colace - monitor for BM DVT prophylaxis - Encourage ambulation. Discussed with patient, nursing, Carol Kilgore Dec 09, 2016 11:59
--- NOTE | 2016-12-09 17:54 | HHI.PYPN ---
Subjective Remarks Patient ambulating frequently and appears to possibly have some akathisia. She is more talkative and is speaking to this physician for the first time. Discussed her care with Hospital nurse and her attendance. This physician will examine need for anti-akathisia medicine. Review of Systems ROS Limitations: Psychotic Except as stated in HPI: all other systems reviewed are Neg Objective Alert: Yes [place]: Person, Place Mood: Calm Affect: Flat Memory Intact: Comment (Not formally assessed) Hallucinations: Other (appears somewhat internally preoccupied) Delusions: No Delusion Type: Other (no angelique delusions) Suicidal: Ideation (no SI) Homicidal: Ideation (no HI) Insight/Judgment Patient remains psychotic with impaired insight and judgment. Vitals/IOs Vital Signs Date Time Temp Pulse Resp B/P Pulse Ox O2 Delivery O2 Flow Rate FiO2 12/09/16 06:27 98.4 110 18 127/76 100 Intake and Output 12/08/16 12/08/16 12/08/16 07:59 15:59 23:59 Intake Total 480 ml 120 ml Balance 480 ml 120 ml Assessment & Plan Problem List: (1) Unspecified psychosis ICD Code: F29 (2) Catatonia ICD Code: F06.1 Assessment & Plan Estimated LOS: 7 days patient will remain on antipsychotic medication. She is apparently responding. We will examine the need for medication to reduce what appears to be patient's restlessness. Justification for Cont. Inpt. Will decompensate at lower level of care. Request HC Surrog/Guard Advoc?: Yes Placido Colin MD Dec 09, 2016 17:54
[2016-12-09] MEDS: MAGNESIUM HYDROXIDE SUSP 30 ML CUP PO PRN (17:58)
[2016-12-09 19:16] VITALS: BP 116/82; PULSE 98; RESP 18; TEMP 98.2; O2SAT 100
[2016-12-09] MEDS: METOPROLOL TARTRATE 25 MG TAB PO SCH (20:09)
[2016-12-10] MEDS: SODIUM CHLOR 0.9% 1000 ML INJ 1,000 ML IV SCH ×2 (03:15→20:33)
[2016-12-10] MEDS: LORazepam 2 MG TAB PO SCH ×6 (04:00→20:32)
[2016-12-10 05:54] VITALS: BP 116/75; PULSE 104; RESP 14; TEMP 98.1; O2SAT 99
[2016-12-10] MEDS ORDERED: PILL SPLITTER OTHER PRN (08:45)
[2016-12-10] MEDS: MEGESTROL ACETATE SUSP 400 MG/10 ML CUP PO SCH (09:00)
[2016-12-10] MEDS: MEMANTINE HCL 10 MG TAB PO SCH ×2 (09:00→20:32)
[2016-12-10] MEDS: DOCUSATE SODIUM 100 MG CAP PO SCH ×2 (09:00→20:32)
[2016-12-10] MEDS: POLYETHYLENE GLYCOL 17 GM PKG PO SCH (09:00)
[2016-12-10] MEDS: METOPROLOL TARTRATE 25 MG TAB PO SCH ×2 (09:00→20:32)
[2016-12-10] MEDS: ARIPiprazole 10 MG TAB PO SCH (09:00)
--- NOTE | 2016-12-10 09:06 | HHI.PR ---
Subjective Remarks Follow-up visit catatonia, poor nutrition, tachycardia. Patient seen and examined today. Patient reports some chest pain and cough. Also reports throat pain. Sitter confirms frequent coughing. No fever or chills. No headache or dizziness. No SOB. No N/V or abdominal pain. Patient not as responsive today. Appears more fearful. Only ate about 25% of her breakfast. Not drinking much. Discussed with Latrice the pillowcase cutter - patient on the waiting list at [facility] for ECT. Objective Vitals Vital Signs Date Time Temp Pulse Resp B/P Pulse Ox O2 Delivery O2 Flow Rate FiO2 12/10/16 05:54 98.1 104 14 116/75 99 12/09/16 19:16 98.2 98 18 116/82 100 I/O 12/09/16 12/09/16 12/09/16 12/10/16 12/10/16 12/10/16 07:00 15:00 23:00 07:00 15:00 23:00 Intake Total 519 ml 960 ml 120 ml Balance 519 ml 960 ml 120 ml Intake Oral 519 ml 720 ml 120 ml Tube Feeding 240 ml # Voids 1 Imaging Last Impressions Abdomen X-Ray 11/27/16 0000 Signed Impressions: Service Date/Time: Sunday, November 27, 2016 13:47 - CONCLUSION: No acute abdominal abnormality is identified. Ravi Arriola MD Chest X-Ray 11/23/16 0000 Signed Impressions: Service Date/Time: Wednesday, November 23, 2016 21:48 - CONCLUSION: No evidence of acute cardiopulmonary disease. Ravi Dominguez MD Chest CT 11/15/16 0000 Signed Impressions: Service Date/Time: November 11:20 - CONCLUSION: 1. Unremarkable CT chest. 2. No infiltrate or mass. Prieto Rock MD Abdomen/Pelvis CT 11/15/16 0000 Signed Impressions: Service Date/Time: November 11:13 - CONCLUSION: Normal examination. Rolando Nuñez MD Lumbar Puncture Fluoroscopy 11/14/16 0000 Signed Impressions: Service Date/Time: November 10:46 - CONCLUSION: Uncomplicated fluoroscopically guided lumbar puncture. Florencio Leslie MD Brain MRI 11/09/16 0000 Signed Impressions: Service Date/Time: Wednesday, November 09, 2016 13:26 - CONCLUSION: 1. Small amount of fluid within the sphenoid sinus. The examination is otherwise unremarkable. Bi Berg MD Head CT 11/08/16 0000 Signed Impressions: Service Date/Time: November 18:15 - CONCLUSION: Normal examination. Ravi Ace MD Lower Extremity Ultrasound 11/07/16 0000 Signed Impressions: Service Date/Time: Monday, November 07, 2016 10:57 - CONCLUSION: No evidence of deep venous thrombosis within the lower extremities. Philippe Menendez MD Objective Remarks GENERAL: Well-nourished, well-developed patient INAD. Awake. Sitting up in hospital bed. SKIN: No rashes, ecchymoses or lesions. Warm and dry. HEENT: Atraumatic. Normocephalic. EOMI. MMM. Oropharynx moist without any appreciable lesions or exudate. CARDIOVASCULAR: Tachycardia without murmurs, gallops, or rubs. RESPIRATORY: Lungs CTAB. Breath sounds equal bilaterally. No wheezes, rales, or rhonchi. GASTROINTESTINAL: Abdomen soft and nondistended and nontender to palpation. Bowel sounds normoactive. MUSCULOSKELETAL: Extremities without clubbing, cyanosis, or edema. Calves are supple bilaterally. Bilateral feet nontender to palpation. NEUROLOGICAL: Awake. Still with slow bradykinetic movements noted. No rigidity. Stiff movements of all extremities. Procedures 11/15/16 Lumbar Puncture 11/16/16 Dobhoff placement Medications and IVs Current Medications Medications (Trade) Dose Ordered Sig/Tien Route Start Time Stop Time Status Last Admin (Milk Of Wendi Liq) 30 ml Q6H PRN PO 10/28/16 15:00 12/09/16 17:58 (Benadryl) 50 mg Q6H PRN PO 10/29/16 17:00 12/08/16 01:54 (Benadryl Inj) 50 mg Q6H PRN IM 10/29/16 17:00 11/13/16 05:20 (Tylenol) 650 mg Q4H PRN PO 10/29/16 17:00 12/02/16 08:46 (Ativan) 2 mg Q6H PRN PO 10/31/16 17:00 12/08/16 01:55 (Zofran Inj) 4 mg Q8HR PRN IV PUSH 11/01/16 13:30 11/28/16 12:58 (NS Flush) 2 ml UNSCH PRN IV FLUSH 11/12/16 14:15 (Fleets Enema (Adult)) 133 ml UNSCH PRN RECTAL 11/21/16 15:45 11/22/16 08:49 (Colace) 100 mg BID PO 11/25/16 21:00 12/07/16 20:50 (Miralax) 17 gm DAILY PO 11/27/16 11:30 12/09/16 08:49 (Dulcolax Supp) 10 mg DAILY PRN RECTAL 11/27/16 16:00 (Megace Liq) 400 mg DAILY PO 12/01/16 09:00 12/09/16 08:49 (Ativan) 2 mg Q4HR PO 12/04/16 12:00 12/10/16 07:46 Memantine 10 mg 10 mg BID PO 12/06/16 09:00 12/09/16 20:10 (NS 1000 ml Inj) 1,000 ml @ 50 mls/hr Q20H IV 12/07/16 15:15 12/10/16 03:15 (Lopressor) 25 mg Q12HR PO 12/09/16 21:00 12/09/16 20:09 (Abilify) 25 mg DAILY PO 12/10/16 09:00 (Pill Splitter) 1 ea UNSCH PRN OTHER 12/10/16 08:45 A/P Problem List: (1) Schizophrenia, paranoid type ICD Code: F20.0 Status: Acute (2) Unspecified psychosis ICD Code: F29 Status: Acute (3) Tachycardia ICD Code: R00.0 Status: Acute (4) Hypokalemia ICD Code: E87.6 Status: Resolved Assessment and Plan Patient is a 21-year-old white female with no known primary medical history who came in to the hospital from [facility] under [place] act secondary to being belligerent at home, acting out raking things and making suicidal statements. As per record, questionable smoking K2 as per nursing staff at [facility]. The patient also refused to give urine specimen for test. 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 Patient is now admitted to inpatient psychiatry unit for further evaluation. Consulted for medical management, tachycardia. Psychosis, paranoid schizophrenia, catatonia - Management by psychiatry team - CT scan and neurology consult requested by primary team - r/o organic cause of AMS ? - CT scan normal - seen in consultation by Neurology - MRI brain normal, EEG normal. s/p LP. Follow-up results. - ESR and CRP within normal, RPR and HIV within normal. - Continues to be exhibiting catatonia but with improving movement and verbalization. Discussed with Dr. Marie. Patient is candidate for ECT. Family agreeable. Patient approved by [employer] court magazine journalist for ECT treatment. Patient has been presented to 3 facilities and declined by 2. Currently on the waiting list to [facility]. - Neurology consulted input appreciated. CSF normal, CSF paraneoplastic antibodies all negative. Per neuro, please call prn. - CT of the abdomen and pelvis normal examination - CT of the chest unremarkable CT chest. No infiltrate or mass. - Patient is on Ativan, Ambien and Abilify - current regimen is improved patient's condition, she is able to communicate more and participate with psychiatric treatment activity. Tachycardia - in part likely due to poor po intake/dehydration. - continue to encourage po/fluid intake - continue IVF hydration - TSH WNL - Mild improvement noted with change to metoprolol 25 mg twice a day. - monitor HR response. Poor by mouth intake Weight loss - Continue to encourage by mouth fluid intake - Ensure shakes - Previously on tube feeds - Calorie counts completed. Adequate intake. Dietitian following. - Continue on Megace - Not eating as well this morning. Possible neuroleptic malignant syndrome, with positive muscle rigidity, elevated total creatine kinase and CK, tachycardia, and catatonia. - Total creatinine kinase needs hydration. CK 162 --> 342 --> 445 --> 533 -- > 357 --> 358 - Discussed with Dr. Marie - likely not NMS. - No appreciable muscle rigidity or tremors noted. - Monitor closely. Complaining of cough and chest pain - CXR ordered for further evaluation Constipation - Continue Miralax daily - Continue Colace - monitor for BM DVT prophylaxis - Encourage ambulation. Discussed with patient, nursing, Carol Kilgore Dec 10, 2016 09:06
--- NOTE | 2016-12-10 10:31 | RADRPT ---
EXAM DATE/TIME: 12/10/2016 10:25 [place] COMPARISON: ABDOMEN KUB ONLY, November 27, 2016, 13:47. INDICATIONS : Cough. MEDICAL HISTORY : None. SURGICAL HISTORY : None. ENCOUNTER: Subsequent ACUITY: 1 month PAIN SCORE: Non-responsive. LOCATION: Bilateral chest FINDINGS: PA and lateral views of the chest demonstrate the lungs to be symmetrically aerated without evidence of mass, infiltrate or effusion. The cardiomediastinal contours are unremarkable. Osseous structure s are intact. CONCLUSION: 1. No acute cardiopulmonary findings. Bi Berg MD on December 10, 2016 at 10:29 Board Certified Radiologist. This report was verified electronically.
[2016-12-10 20:00] VITALS: BP 119/77; PULSE 102; RESP 16; TEMP 97.7; O2SAT 99
[2016-12-11] MEDS: LORazepam 2 MG TAB PO SCH ×6 (00:43→20:59)
[2016-12-11 06:27] VITALS: BP 116/74; PULSE 107; RESP 17; TEMP 98; O2SAT 99
[2016-12-11] MEDS: ARIPiprazole 10 MG TAB PO SCH (08:43)
[2016-12-11] MEDS: MEMANTINE HCL 10 MG TAB PO SCH ×2 (08:43→20:59)
[2016-12-11] MEDS: METOPROLOL TARTRATE 25 MG TAB PO SCH ×2 (08:43→20:59)
[2016-12-11] MEDS: DOCUSATE SODIUM 100 MG CAP PO SCH ×2 (09:00→20:59)
[2016-12-11] MEDS: POLYETHYLENE GLYCOL 17 GM PKG PO SCH (09:00)
[2016-12-11] MEDS: MEGESTROL ACETATE SUSP 400 MG/10 ML CUP PO SCH (09:00)
--- NOTE | 2016-12-11 10:11 | HHI.PYPN ---
Subjective Remarks This is the psychiatric progress note for December 10, 2016. The patient is in bed today and much less active. She is speaking to this physician in a small voice and there is an obvious poverty of speech. Discussed possible ECT with the patient's nurse. Patient continues to exhibit signs and symptoms of catatonia. Review of Systems ROS Limitations: Psychotic Except as stated in HPI: all other systems reviewed are Neg Objective Alert: Yes [place]: Person, Place Mood: Calm Affect: Flat Memory Intact: Comment (Not formally assessed) Hallucinations: Other (appears somewhat internally preoccupied) Delusions: No Delusion Type: Other (no angelique delusions) Suicidal: Ideation (no SI) Homicidal: Ideation (no HI) Insight/Judgment Impaired. Vitals/IOs Vital Signs Date Time Temp Pulse Resp B/P Pulse Ox O2 Delivery O2 Flow Rate FiO2 12/11/16 06:27 98.0 107 17 116/74 99 Intake and Output 12/10/16 12/10/16 12/11/16 08:00 16:00 00:00 Intake Total 763 ml 480 ml Balance 763 ml 480 ml Assessment & Plan Problem List: (1) Unspecified psychosis ICD Code: F29 (2) Catatonia ICD Code: F06.1 Assessment & Plan Estimated LOS 7.: days patient appears to fluctuate with regard to her level of catatonia. Today she is much more restricted in her movements, speech and energy. She appears to be responding to internal stimuli. This physician is reevaluating her medications for adjustment and will ask the mailroom associate to contact family members in regards to possible ECT treatment in [facility]. Justification for Cont. Inpt. Will decompensate at lower level of care. Request HC Surrog/Guard Advoc?: Yes Placido Colin MD Dec 11, 2016 10:11
--- NOTE | 2016-12-11 14:30 | HHI.PR ---
Subjective Remarks Follow-up visit catatonia, poor nutrition, tachycardia. Patient seen and examined today. Patient is lying in bed. Not speaking very much. Being visited by therapy dog Max. Ate only 35% of breakfast and 25% of lunch so far. No cough today. She denies any pain or discomfort. Objective Vitals Vital Signs Date Time Temp Pulse Resp B/P Pulse Ox O2 Delivery O2 Flow Rate FiO2 12/11/16 06:27 98.0 107 17 116/74 99 12/10/16 20:00 97.7 102 16 119/77 99 I/O 12/10/16 12/10/16 12/10/16 12/11/16 12/11/16 12/11/16 07:00 15:00 23:00 07:00 15:00 23:00 Intake Total 763 ml 480 ml 706 ml Balance 763 ml 480 ml 706 ml Intake Oral 460 ml 480 ml 0 ml IV Total 303 ml 706 ml # Voids 3 2 Imaging Last Impressions Chest X-Ray 12/10/16 0000 Signed Impressions: Service Date/Time: Saturday, December 10, 2016 10:25 - CONCLUSION: 1. No acute cardiopulmonary findings. Bi Berg MD Abdomen X-Ray 11/27/16 0000 Signed Impressions: Service Date/Time: Sunday, November 27, 2016 13:47 - CONCLUSION: No acute abdominal abnormality is identified. Ravi Arriola MD Chest CT 11/15/16 0000 Signed Impressions: Service Date/Time: November 11:20 - CONCLUSION: 1. Unremarkable CT chest. 2. No infiltrate or mass. Prieto Rock MD Abdomen/Pelvis CT 11/15/16 0000 Signed Impressions: Service Date/Time: November 11:13 - CONCLUSION: Normal examination. Rolando Nuñez MD Lumbar Puncture Fluoroscopy 11/14/16 0000 Signed Impressions: Service Date/Time: November 10:46 - CONCLUSION: Uncomplicated fluoroscopically guided lumbar puncture. Florencio Leslie MD Brain MRI 11/09/16 0000 Signed Impressions: Service Date/Time: Wednesday, November 09, 2016 13:26 - CONCLUSION: 1. Small amount of fluid within the sphenoid sinus. The examination is otherwise unremarkable. Bi Berg MD Head CT 11/08/16 0000 Signed Impressions: Service Date/Time: November 18:15 - CONCLUSION: Normal examination. Ravi Ace MD Lower Extremity Ultrasound 11/07/16 0000 Signed Impressions: Service Date/Time: Monday, November 07, 2016 10:57 - CONCLUSION: No evidence of deep venous thrombosis within the lower extremities. Philippe Menendez MD Objective Remarks GENERAL: Well-nourished, well-developed patient INAD. Awake. Sitting up in hospital bed. Therapy dog Max in bed with her. Slow, bradykinetic movements noted. SKIN: No rashes, ecchymoses or lesions. Warm and dry. HEENT: Atraumatic. Normocephalic. EOMI. MMM. Oropharynx moist without any appreciable lesions or exudate. CARDIOVASCULAR: Tachycardia without murmurs, gallops, or rubs. RESPIRATORY: Lungs CTAB. Breath sounds equal bilaterally. No wheezes, rales, or rhonchi. GASTROINTESTINAL: Abdomen soft and nondistended and nontender to palpation. Bowel sounds normoactive. MUSCULOSKELETAL: Extremities without clubbing, cyanosis, or edema. Calves are supple bilaterally. Bilateral feet nontender to palpation. NEUROLOGICAL: Awake. Still with slow bradykinetic movements noted. No rigidity. Poverty of speech. Procedures 11/15/16 Lumbar Puncture 11/16/16 Dobhoff placement Medications and IVs Current Medications Medications (Trade) Dose Ordered Sig/Tien Route Start Time Stop Time Status Last Admin (Milk Of Magnesia Liq) 30 ml Q6H PRN PO 10/28/16 15:00 12/09/16 17:58 (Benadryl) 50 mg Q6H PRN PO 10/29/16 17:00 12/08/16 01:54 (Benadryl Inj) 50 mg Q6H PRN IM 10/29/16 17:00 11/13/16 05:20 (Tylenol) 650 mg Q4H PRN PO 10/29/16 17:00 12/02/16 08:46 (Ativan) 2 mg Q6H PRN PO 10/31/16 17:00 12/08/16 01:55 (Zofran Inj) 4 mg Q8HR PRN IV PUSH 11/01/16 13:30 11/28/16 12:58 (NS Flush) 2 ml UNSCH PRN IV FLUSH 11/12/16 14:15 (Fleets Enema (Adult)) 133 ml UNSCH PRN RECTAL 11/21/16 15:45 11/22/16 08:49 (Colace) 100 mg BID PO 11/25/16 21:00 12/10/16 20:32 (Miralax) 17 gm DAILY PO 11/27/16 11:30 12/10/16 09:00 (Dulcolax Supp) 10 mg DAILY PRN RECTAL 11/27/16 16:00 (Megace Liq) 400 mg DAILY PO 12/01/16 09:00 12/10/16 09:00 (Ativan) 2 mg Q4HR PO 12/04/16 12:00 12/11/16 12:39 Memantine 10 mg 10 mg BID PO 12/06/16 09:00 12/11/16 08:43 (NS 1000 ml Inj) 1,000 ml @ 50 mls/hr Q20H IV 12/07/16 15:15 12/10/16 20:33 (Lopressor) 25 mg Q12HR PO 12/09/16 21:00 12/11/16 08:43 (Abilify) 25 mg DAILY PO 12/10/16 09:00 12/11/16 08:43 (Pill Splitter) 1 ea UNSCH PRN OTHER 12/10/16 08:45 A/P Problem List: (1) Schizophrenia, paranoid type ICD Code: F20.0 Status: Acute (2) Unspecified psychosis ICD Code: F29 Status: Acute (3) Tachycardia ICD Code: R00.0 Status: Acute (4) Hypokalemia ICD Code: E87.6 Status: Resolved Assessment and Plan Patient is a 21-year-old white female with no known primary medical history who came in to the hospital from [facility] under [place] secondary to being belligerent at home, acting out raking things and making suicidal statements. As per record, questionable smoking K2 as per nursing staff at [facility]. The patient also refused to give urine specimen for test. 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 Patient is now admitted to inpatient psychiatry unit for further evaluation. Consulted for medical management, tachycardia. Psychosis, paranoid schizophrenia, catatonia - Management by psychiatry team - CT scan and neurology consult requested by primary team - r/o organic cause of AMS ? - CT scan normal - seen in consultation by Neurology - MRI brain normal, EEG normal. s/p LP. Follow-up results. - ESR and CRP within normal, RPR and HIV within normal. - Continues to be exhibiting catatonia but with improving movement and verbalization. Discussed with Dr. Marie. Patient is candidate for ECT. Family agreeable. Patient approved by [place] court circuit judge for ECT treatment. Patient has been presented to 3 facilities and declined by 2. Currently on the waiting list to [facility]. - Neurology consulted input appreciated. CSF normal, CSF paraneoplastic antibodies all negative. Per neuro, please call prn. - CT of the abdomen and pelvis normal examination - CT of the chest unremarkable CT chest. No infiltrate or mass. - Patient is on Ativan, Ambien and Abilify - current regimen is improved patient's condition, she is able to communicate more and participate with psychiatric treatment activity. Tachycardia - in part likely due to poor po intake/dehydration. - continue to encourage po/fluid intake - continue IVF hydration - TSH WNL - Mild improvement noted with change to metoprolol 25 mg twice a day. - monitor HR response. Poor by mouth intake Weight loss - Continue to encourage by mouth fluid intake - Ensure shakes - Previously on tube feeds - Calorie counts completed. Adequate intake. Dietitian following. - Continue on Megace - Not eating as well this morning. Possible neuroleptic malignant syndrome, with positive muscle rigidity, elevated total creatine kinase and CK, tachycardia, and catatonia. - Total creatinine kinase needs hydration. CK 162 --> 342 --> 445 --> 533 -- > 357 --> 358 - Discussed with Dr. Marie - likely not NMS. - No appreciable muscle rigidity or tremors noted. - Monitor closely. Complaining of cough and chest pain - CXR ordered and reviewed by myself, no active cardiopulmonary disease noted Constipation - Continue Miralax daily - Continue Colace - monitor for BM DVT prophylaxis - Encourage ambulation. Discussed with patient, nursing, Dr. Rayna Holder,Carol KARIMI Dec 11, 2016 14:29
[2016-12-11 17:58] VITALS: BP 112/67; PULSE 110; RESP 16; TEMP 98.4; O2SAT 98
[2016-12-11] MEDS: SODIUM CHLOR 0.9% 1000 ML INJ 1,000 ML IV SCH (19:15)
[2016-12-11 19:24] VITALS: BP 113/67; PULSE 110; RESP 16; TEMP 98.4; O2SAT 98
[2016-12-12] MEDS: LORazepam 2 MG TAB PO SCH ×7 (04:00→23:51)
[2016-12-12 04:24] VITALS: BP 102/65; PULSE 93; RESP 15; TEMP 97.7; O2SAT 98
[2016-12-12] MEDS: MEMANTINE HCL 10 MG TAB PO SCH ×2 (08:47→20:24)
[2016-12-12] MEDS: ARIPiprazole 10 MG TAB PO SCH (08:47)
[2016-12-12] MEDS: DOCUSATE SODIUM 100 MG CAP PO SCH ×2 (08:47→20:24)
[2016-12-12] MEDS: MEGESTROL ACETATE SUSP 400 MG/10 ML CUP PO SCH (08:48)
[2016-12-12] MEDS: POLYETHYLENE GLYCOL 17 GM PKG PO SCH (08:48)
[2016-12-12] MEDS: METOPROLOL TARTRATE 25 MG TAB PO SCH ×2 (08:48→20:24)
--- NOTE | 2016-12-12 09:50 | HHI.PYPN ---
Subjective Remarks This is the psychiatric progress note for December 11, 2016. Patient is up and walking and talking again today. Case was discussed with the patient's social work nurse as well as nurse. She is able to have minimal conversation with this physician and exhibits poverty of speech. There is some concern the patient is experiencing akathisia because she is unable to stand still. However, she is already on a beta william. She may require a medication change to Zyprexa. Review of Systems ROS Limitations: Clinical Condition Objective Alert: Yes [place]: Person, Place Mood: Anxious Affect: Restricted, Flat Memory Intact: Comment (Not formally assessed) Hallucinations: Other (appears somewhat internally preoccupied) Delusions: No Delusion Type: Other (no angelique delusions) Suicidal: Ideation (no SI) Homicidal: Ideation (no HI) Insight/Judgment Impaired Vitals/IOs Vital Signs Date Time Temp Pulse Resp B/P Pulse Ox O2 Delivery O2 Flow Rate FiO2 12/12/16 04:24 97.7 93 15 102/65 98 Intake and Output 12/11/16 12/11/16 12/12/16 08:00 16:00 00:00 Intake Total 706 ml 0 ml Balance 706 ml 0 ml Assessment & Plan Problem List: (1) Unspecified psychosis ICD Code: F29 (2) Catatonia ICD Code: F06.1 Assessment & Plan Estimated LOS: 7 days this physician will ask welfare case worker to contact patient's mother for informed consent regarding medication change. Patient is responding insufficiently to Abilify and may require augmentation or a change to Zyprexa. Justification for Cont. Inpt. Remains mostly catatonic with features of responding to internal stimuli. Unable to care for self and will decompensate at lower level of care. Request HC Surrog/Guard Advoc?: Yes Placido Colin MD Dec 12, 2016 09:50
--- NOTE | 2016-12-12 10:13 | HHI.PR ---
Subjective Remarks Follow-up visit catatonia, poor nutrition, tachycardia. Patient seen and examined today. Patient complaining of back pain today. Discussed with nursing staff, she was outside of her room alot yesterday participating with many activities. She is hypoverbal today. Appears more lethargic. Ate 50% of her breakfast. Objective Vitals Vital Signs Date Time Temp Pulse Resp B/P Pulse Ox O2 Delivery O2 Flow Rate FiO2 12/12/16 04:24 97.7 93 15 102/65 98 12/11/16 19:24 98.4 110 16 113/67 98 12/11/16 17:58 98.4 110 16 112/67 98 I/O 12/11/16 12/11/16 12/11/16 12/12/16 12/12/16 12/12/16 07:00 15:00 23:00 07:00 15:00 23:00 Intake Total 706 ml 0 ml Balance 706 ml 0 ml Intake Oral 0 ml 0 ml IV Total 706 ml # Voids 2 3 2 Imaging Last Impressions Chest X-Ray 12/10/16 0000 Signed Impressions: Service Date/Time: Saturday, December 10, 2016 10:25 - CONCLUSION: 1. No acute cardiopulmonary findings. Bi Berg MD Abdomen X-Ray 11/27/16 0000 Signed Impressions: Service Date/Time: Sunday, November 27, 2016 13:47 - CONCLUSION: No acute abdominal abnormality is identified. Ravi Arriola MD Chest CT 11/15/16 0000 Signed Impressions: Service Date/Time: November 11:20 - CONCLUSION: 1. Unremarkable CT chest. 2. No infiltrate or mass. Prieto Rock MD Abdomen/Pelvis CT 11/15/16 0000 Signed Impressions: Service Date/Time: November 11:13 - CONCLUSION: Normal examination. Rolando Nuñez MD Lumbar Puncture Fluoroscopy 11/14/16 0000 Signed Impressions: Service Date/Time: November 10:46 - CONCLUSION: Uncomplicated fluoroscopically guided lumbar puncture. Florencio Leslie MD Brain MRI 11/09/16 0000 Signed Impressions: Service Date/Time: Wednesday, November 09, 2016 13:26 - CONCLUSION: 1. Small amount of fluid within the sphenoid sinus. The examination is otherwise unremarkable. Bi Berg MD Head CT 11/08/16 0000 Signed Impressions: Service Date/Time: November 18:15 - CONCLUSION: Normal examination. Ravi Ace MD Lower Extremity Ultrasound 11/07/16 0000 Signed Impressions: Service Date/Time: Monday, November 07, 2016 10:57 - CONCLUSION: No evidence of deep venous thrombosis within the lower extremities. Philippe Menendez MD Objective Remarks GENERAL: Well-nourished, well-developed patient INAD. Awake. Lying in hospital bed. Hypoverbal. Slow, bradykinetic movements noted. SKIN: No rashes, ecchymoses or lesions. Warm and dry. HEENT: Atraumatic. Normocephalic. EOMI. MMM. Oropharynx moist without any appreciable lesions or exudate. CARDIOVASCULAR: Tachycardia without murmurs, gallops, or rubs. RESPIRATORY: Lungs CTAB. Breath sounds equal bilaterally. No wheezes, rales, or rhonchi. GASTROINTESTINAL: Abdomen soft and nondistended and nontender to palpation. Bowel sounds normoactive. MUSCULOSKELETAL: Extremities without clubbing, cyanosis, or edema. Calves are supple bilaterally. (+)tenderness to palpation of thoracic and lumbar paraspinal muscles. NEUROLOGICAL: Awake. Still with slow bradykinetic movements noted. No rigidity. Poverty of speech. Procedures 11/15/16 Lumbar Puncture 11/16/16 Dobhoff placement Medications and IVs Current Medications Medications (Trade) Dose Ordered Sig/Tien Route Start Time Stop Time Status Last Admin (Milk Of Magnesia Liq) 30 ml Q6H PRN PO 10/28/16 15:00 12/09/16 17:58 (Benadryl) 50 mg Q6H PRN PO 10/29/16 17:00 12/08/16 01:54 (Benadryl Inj) 50 mg Q6H PRN IM 10/29/16 17:00 11/13/16 05:20 (Tylenol) 650 mg Q4H PRN PO 10/29/16 17:00 12/02/16 08:46 (Ativan) 2 mg Q6H PRN PO 10/31/16 17:00 12/08/16 01:55 (Zofran Inj) 4 mg Q8HR PRN IV PUSH 4/27/17 13:30 11/28/16 12:58 (NS Flush) 2 ml UNSCH PRN IV FLUSH 11/12/16 14:15 (Fleets Enema (Adult)) 133 ml UNSCH PRN RECTAL 11/21/16 15:45 11/22/16 08:49 (Colace) 100 mg BID PO 11/25/16 21:00 12/12/16 08:47 (Miralax) 17 gm DAILY PO 11/27/16 11:30 12/12/16 08:48 (Dulcolax Supp) 10 mg DAILY PRN RECTAL 11/27/16 16:00 (Megace Liq) 400 mg DAILY PO 12/01/16 09:00 12/12/16 08:48 (Ativan) 2 mg Q4HR PO 12/04/16 12:00 12/12/16 08:47 Memantine 10 mg 10 mg BID PO 12/06/16 09:00 12/12/16 08:47 (NS 1000 ml Inj) 1,000 ml @ 50 mls/hr Q20H IV 12/07/16 15:15 12/11/16 19:15 (Lopressor) 25 mg Q12HR PO 12/09/16 21:00 12/12/16 08:48 (Abilify) 25 mg DAILY PO 12/10/16 09:00 12/12/16 08:47 (Pill Splitter) 1 ea UNSCH PRN OTHER 12/10/16 08:45 A/P Problem List: (1) Schizophrenia, paranoid type ICD Code: F20.0 Status: Acute (2) Unspecified psychosis ICD Code: F29 Status: Acute (3) Tachycardia ICD Code: R00.0 Status: Acute (4) Hypokalemia ICD Code: E87.6 Status: Resolved Assessment and Plan Patient is a 21-year-old white female with no known primary medical history who came in to the hospital from [facility] under [place] act secondary to being belligerent at home, acting out raking things and making suicidal statements. As per record, questionable smoking K2 as per nursing staff at [facility]. The patient also refused to give urine specimen for test. 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 Patient is now admitted to inpatient psychiatry unit for further evaluation. Consulted for medical management, tachycardia. Psychosis, paranoid schizophrenia, catatonia - Management by psychiatry team - CT scan and neurology consult requested by primary team - r/o organic cause of AMS ? - CT scan normal - seen in consultation by Neurology - MRI brain normal, EEG normal. s/p LP. Follow-up results. - ESR and CRP within normal, RPR and HIV within normal. - Continues to be exhibiting catatonia but with improving movement and verbalization. Discussed with Dr. Marie. Patient is candidate for ECT. Family agreeable. Patient approved by [place] court nuclear fuel processing technician for ECT treatment. Patient has been presented to 3 facilities and declined by 2. Currently on the waiting list to [facility]. - Neurology consulted input appreciated. CSF normal, CSF paraneoplastic antibodies all negative. Per neuro, please call prn. - CT of the abdomen and pelvis normal examination - CT of the chest unremarkable CT chest. No infiltrate or mass. - Patient is on Ativan, Ambien and Abilify - current regimen is improved patient's condition, she is able to communicate more and participate with psychiatric treatment activity. Tachycardia - better today - in part likely due to poor po intake/dehydration. - continue to encourage po/fluid intake - continue IVF hydration - TSH WNL - continue metoprolol 25 mg twice a day. - monitor HR response. Poor by mouth intake Weight loss - Continue to encourage by mouth fluid intake - Ensure shakes - Previously on tube feeds - Calorie counts completed. Adequate intake. Dietitian following. - Continue on Megace Possible neuroleptic malignant syndrome, with positive muscle rigidity, elevated total creatine kinase and CK, tachycardia, and catatonia. - Total creatinine kinase needs hydration. CK 162 --> 342 --> 445 --> 533 -- > 357 --> 358 - Discussed with Dr. Marie - likely not NMS. - No appreciable muscle rigidity or tremors noted. - Monitor closely. Back pain - appears musculoskeletal in origin after increased activity yesterday - Kpad to back - monitor Constipation - no BM in 3 days - Dulcolax suppository today - Continue Miralax daily - Continue Colace - monitor for BM DVT prophylaxis - Encourage ambulation. Discussed with patient, nursing, Carol Kilgore Dec 12, 2016 10:13
[2016-12-12] MEDS ORDERED: BISACODYL 10 MG SUPP RECTAL ONE (10:15)
--- NOTE | 2016-12-12 11:33 | HHI.PYPN ---
Subjective Remarks more flat and unresponsive today. Discussed care with pt's father and we will add Zyprexa and taper pt. off Abilify. Review of Systems ROS Limitations: Clinical Condition, Psychotic Objective Alert: Yes [place]: Person Mood: Anxious Affect: Restricted, Flat Memory Intact: Comment (Not formally assessed) Hallucinations: Other (appears somewhat internally preoccupied) Delusions: No Delusion Type: Other (no angelique delusions) Suicidal: Ideation (no SI) Homicidal: Ideation (no HI) Insight/Judgment poor. Vitals/IOs Vital Signs Date Time Temp Pulse Resp B/P Pulse Ox O2 Delivery O2 Flow Rate FiO2 12/12/16 04:24 97.7 93 15 102/65 98 Intake and Output 12/11/16 12/11/16 12/12/16 08:00 16:00 00:00 Intake Total 706 ml 0 ml Balance 706 ml 0 ml Assessment & Plan Problem List: (1) Unspecified psychosis ICD Code: F29 (2) Catatonia ICD Code: F06.1 Assessment & Plan Estimated LOS: 7 days Pt not adequately responding to Abilify. Will start Zyprexa. Justification for Cont. Inpt. Will decompensate at lower level of care. Request HC Surrog/Guard Advoc?: Yes Placido Colin MD Dec 12, 2016 11:33
[2016-12-12] MEDS: SODIUM CHLOR 0.9% 1000 ML INJ 1,000 ML IV SCH (15:15)
[2016-12-12 20:29] VITALS: BP 116/55; PULSE 109; RESP 16; TEMP 97.7; O2SAT 98
[2016-12-13] MEDS: LORazepam 2 MG TAB PO SCH ×5 (04:05→20:59)
[2016-12-13 06:36] VITALS: BP 117/71; PULSE 118; RESP 16; TEMP 98.3; O2SAT 99
[2016-12-13] MEDS: DOCUSATE SODIUM 100 MG CAP PO SCH ×2 (07:46→20:58)
[2016-12-13] MEDS: POLYETHYLENE GLYCOL 17 GM PKG PO SCH (07:46)
[2016-12-13] MEDS: MEGESTROL ACETATE SUSP 400 MG/10 ML CUP PO SCH (08:41)
[2016-12-13] MEDS: MEMANTINE HCL 10 MG TAB PO SCH ×2 (08:41→20:58)
[2016-12-13] MEDS: ARIPiprazole 10 MG TAB PO SCH (08:41)
[2016-12-13] MEDS: METOPROLOL TARTRATE 25 MG TAB PO SCH ×2 (08:41→16:57)
[2016-12-13 09:03] VITALS: BP 117/71; PULSE 118; RESP 16; TEMP 98.3; O2SAT 99
[2016-12-13] MEDS: SODIUM CHLOR 0.9% 1000 ML INJ 1,000 ML IV SCH (09:16)
--- NOTE | 2016-12-13 10:37 | HHI.PR ---
Subjective Remarks Follow-up visit catatonia, poor nutrition, tachycardia. Patient seen and examined today. Patient very sleepy today. Reportedly, she was up at 6am, had large BM and ate almost all of her breakfast even feeding herself the majority of the time. Objective Vitals Vital Signs Date Time Temp Pulse Resp B/P Pulse Ox O2 Delivery O2 Flow Rate FiO2 12/13/16 09:03 98.3 118 16 117/71 99 12/13/16 06:36 98.3 118 16 117/71 99 12/12/16 20:29 97.7 109 16 116/55 98 I/O 12/12/16 12/12/16 12/12/16 12/13/16 12/13/16 12/13/16 07:00 15:00 23:00 07:00 15:00 23:00 Intake Total 1096 ml 720 ml Balance 1096 ml 720 ml Intake Oral 480 ml 720 ml IV Total 616 ml # Voids 2 4 # Bowel Movements 1 2 Imaging Last Impressions Chest X-Ray 12/10/16 0000 Signed Impressions: Service Date/Time: Saturday, December 10, 2016 10:25 - CONCLUSION: 1. No acute cardiopulmonary findings. Bi Berg MD Abdomen X-Ray 11/27/16 0000 Signed Impressions: Service Date/Time: Sunday, November 27, 2016 13:47 - CONCLUSION: No acute abdominal abnormality is identified. Ravi Arriola MD Chest CT 11/15/16 0000 Signed Impressions: Service Date/Time: November 11:20 - CONCLUSION: 1. Unremarkable CT chest. 2. No infiltrate or mass. Prieto Rock MD Abdomen/Pelvis CT 11/15/16 0000 Signed Impressions: Service Date/Time: November 11:13 - CONCLUSION: Normal examination. Rolando Nuñez MD Lumbar Puncture Fluoroscopy 11/14/16 0000 Signed Impressions: Service Date/Time: November 10:46 - CONCLUSION: Uncomplicated fluoroscopically guided lumbar puncture. Florencio Leslie MD Brain MRI 11/09/16 0000 Signed Impressions: Service Date/Time: Wednesday, November 09, 2016 13:26 - CONCLUSION: 1. Small amount of fluid within the sphenoid sinus. The examination is otherwise unremarkable. Bi Berg MD Head CT 11/08/16 0000 Signed Impressions: Service Date/Time: November 18:15 - CONCLUSION: Normal examination. Ravi Ace MD Lower Extremity Ultrasound 11/07/16 0000 Signed Impressions: Service Date/Time: Monday, November 07, 2016 10:57 - CONCLUSION: No evidence of deep venous thrombosis within the lower extremities. Philippe Menendez MD Objective Remarks GENERAL: Well-nourished, well-developed patient INAD. Lying in hospital bed. Sedated. SKIN: No rashes, ecchymoses or lesions. Warm and dry. HEENT: Atraumatic. Normocephalic. EOMI. MMM. Oropharynx moist without any appreciable lesions or exudate. CARDIOVASCULAR: Tachycardia without murmurs, gallops, or rubs. RESPIRATORY: Lungs CTAB. Breath sounds equal bilaterally. No wheezes, rales, or rhonchi. GASTROINTESTINAL: Abdomen soft and nondistended and nontender to palpation. Bowel sounds normoactive. MUSCULOSKELETAL: Extremities without clubbing, cyanosis, or edema. Calves are supple bilaterally. NEUROLOGICAL: Sedated. Procedures 11/15/16 Lumbar Puncture 11/16/16 Dobhoff placement Medications and IVs Current Medications Medications (Trade) Dose Ordered Sig/Tien Route Start Time Stop Time Status Last Admin (Milk Of Wendi Liq) 30 ml Q6H PRN PO 10/28/16 15:00 12/09/16 17:58 (Benadryl) 50 mg Q6H PRN PO 10/29/16 17:00 12/08/16 01:54 (Benadryl Inj) 50 mg Q6H PRN IM 10/29/16 17:00 11/13/16 05:20 (Tylenol) 650 mg Q4H PRN PO 10/29/16 17:00 12/02/16 08:46 (Ativan) 2 mg Q6H PRN PO 10/31/16 17:00 12/08/16 01:55 (Zofran Inj) 4 mg Q8HR PRN IV PUSH 11/01/16 13:30 11/28/16 12:58 (NS Flush) 2 ml UNSCH PRN IV FLUSH 11/12/16 14:15 (Fleets Enema (Adult)) 133 ml UNSCH PRN RECTAL 11/21/16 15:45 11/22/16 08:49 (Colace) 100 mg BID PO 11/25/16 21:00 12/13/16 07:46 (Miralax) 17 gm DAILY PO 11/27/16 11:30 12/13/16 07:46 (Dulcolax Supp) 10 mg DAILY PRN RECTAL 11/27/16 16:00 12/12/16 10:31 (Megace Liq) 400 mg DAILY PO 12/01/16 09:00 12/13/16 08:41 (Ativan) 2 mg Q4HR PO 12/04/16 12:00 12/13/16 08:41 Memantine 10 mg 10 mg BID PO 12/06/16 09:00 12/13/16 08:41 (NS 1000 ml Inj) 1,000 ml @ 50 mls/hr Q20H IV 12/07/16 15:15 12/13/16 09:16 (Lopressor) 25 mg Q12HR PO 12/09/16 21:00 12/13/16 08:41 (Pill Splitter) 1 ea UNSCH PRN OTHER 12/10/16 08:45 (Abilify) 15 mg DAILY PO 12/14/16 09:00 (ZyPREXA) 10 mg DAILY PO 12/14/16 09:00 UNV A/P Problem List: (1) Schizophrenia, paranoid type ICD Code: F20.0 Status: Acute (2) Unspecified psychosis ICD Code: F29 Status: Acute (3) Tachycardia ICD Code: R00.0 Status: Acute (4) Hypokalemia ICD Code: E87.6 Status: Resolved Assessment and Plan Patient is a 21-year-old white female with no known primary medical history who came in to the hospital from [facility] under [employer] act secondary to being belligerent at home, acting out raking things and making suicidal statements. As per record, questionable smoking K2 as per nursing staff at [facility]. The patient also refused to give urine specimen for test. 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 Patient is now admitted to inpatient psychiatry unit for further evaluation. Consulted for medical management, tachycardia. Psychosis, paranoid schizophrenia, catatonia - Management by psychiatry team - CT scan and neurology consult requested by primary team - r/o organic cause of AMS ? - CT scan normal - seen in consultation by Neurology - MRI brain normal, EEG normal. s/p LP. Follow-up results. - ESR and CRP within normal, RPR and HIV within normal. - Continues to be exhibiting catatonia but with improving movement and verbalization. Discussed with Dr. Marie. Patient is candidate for ECT. Family agreeable. Patient approved by [employer] consultant for ECT treatment. Patient has been presented to 3 facilities and declined by 2. Currently on the waiting list to [facility]. - Neurology consulted input appreciated. CSF normal, CSF paraneoplastic antibodies all negative. Per neuro, please call prn. - CT of the abdomen and pelvis normal examination - CT of the chest unremarkable CT chest. No infiltrate or mass. - Patient is on Ativan, Ambien and Abilify - current regimen is improved patient's condition, she is able to communicate more and participate with psychiatric treatment activity. Tachycardia - HR 118 - in part likely due to poor po intake/dehydration. - continue to encourage po/fluid intake - continue IVF hydration - TSH WNL - change to metoprolol 25 mg q8h. - monitor HR response. Poor by mouth intake Weight loss - Continue to encourage by mouth fluid intake - Ensure shakes - Previously on tube feeds - Calorie counts completed. Adequate intake. Dietitian following. - Continue on Megace Possible neuroleptic malignant syndrome, with positive muscle rigidity, elevated total creatine kinase and CK, tachycardia, and catatonia. - Total creatinine kinase needs hydration. CK 162 --> 342 --> 445 --> 533 -- > 357 --> 358 - Discussed with Dr. Marie - likely not NMS. - No appreciable muscle rigidity or tremors noted. - Monitor closely. Back pain - appears musculoskeletal in origin after increased activity yesterday - continue Kpad to back - monitor Constipation - (+)BM this am - Continue Miralax daily - Continue Colace - monitor for BM DVT prophylaxis - Encourage ambulation. Discussed with patient, nursing, DrCarol Carty Dec 13, 2016 10:36
[2016-12-13 17:27] VITALS: BP 122/75; PULSE 122; RESP 18; TEMP 97.9; O2SAT 96
[2016-12-14] MEDS: METOPROLOL TARTRATE 25 MG TAB PO SCH ×3 (00:24→17:11)
[2016-12-14] MEDS: LORazepam 2 MG TAB PO SCH ×6 (04:00→22:15)
[2016-12-14 05:21] VITALS: BP 110/73; PULSE 97; RESP 18; TEMP 97.8; O2SAT 98
[2016-12-14] MEDS: SODIUM CHLOR 0.9% 1000 ML INJ 1,000 ML IV SCH (07:12)
[2016-12-14] MEDS: MEMANTINE HCL 10 MG TAB PO SCH ×2 (08:20→22:14)
[2016-12-14] MEDS: DOCUSATE SODIUM 100 MG CAP PO SCH ×2 (08:20→08:52)
[2016-12-14] MEDS: POLYETHYLENE GLYCOL 17 GM PKG PO SCH (08:21)
[2016-12-14] MEDS: MEGESTROL ACETATE SUSP 400 MG/10 ML CUP PO SCH (08:21)
[2016-12-14] MEDS ORDERED: OLANZapine 10 MG TAB PO SCH (09:00)
[2016-12-14] MEDS ORDERED: ARIPiprazole 10 MG TAB PO SCH (09:00)
--- NOTE | 2016-12-14 09:34 | HHI.PR ---
Subjective Remarks Follow-up visit catatonia, poor nutrition, tachycardia. Patient seen and examined today. She is more alert today. Patient ambulating in hallway with witnessed poor balance. Patient walking on her tiptoes. She c/o bilateral foot pain. Discussed with nursing staff, patient is drinking about 700ml daily. Patient complaining of right ankle pain and swelling. Also patient reports bilateral ear pain. No fever or chills. Objective Vitals Vital Signs Date Time Temp Pulse Resp B/P Pulse Ox O2 Delivery O2 Flow Rate FiO2 12/14/16 05:21 97.8 97 18 110/73 98 12/13/16 17:27 97.9 122 18 122/75 96 I/O 12/13/16 12/13/16 12/13/16 12/14/16 12/14/16 12/14/16 07:00 15:00 23:00 07:00 15:00 23:00 Intake Total 1096 ml 1452 ml 360 ml 1434 ml Balance 1096 ml 1452 ml 360 ml 1434 ml Intake Oral 480 ml 1200 ml 360 ml 940 ml IV Total 616 ml 252 ml 494 ml # Voids 4 3 # Bowel Movements 2 Imaging Last Impressions Chest X-Ray 12/10/16 0000 Signed Impressions: Service Date/Time: Saturday, December 10, 2016 10:25 - CONCLUSION: 1. No acute cardiopulmonary findings. Bi Berg MD Abdomen X-Ray 11/27/16 0000 Signed Impressions: Service Date/Time: Sunday, November 27, 2016 13:47 - CONCLUSION: No acute abdominal abnormality is identified. Ravi Arriola MD Chest CT 11/15/16 0000 Signed Impressions: Service Date/Time: November 11:20 - CONCLUSION: 1. Unremarkable CT chest. 2. No infiltrate or mass. Prieto Rock MD Abdomen/Pelvis CT 11/15/16 0000 Signed Impressions: Service Date/Time: November 11:13 - CONCLUSION: Normal examination. Rolando Nuñez MD Lumbar Puncture Fluoroscopy 11/14/16 0000 Signed Impressions: Service Date/Time: November 10:46 - CONCLUSION: Uncomplicated fluoroscopically guided lumbar puncture. Florencio Leslie MD Brain MRI 11/09/16 0000 Signed Impressions: Service Date/Time: Wednesday, November 09, 2016 13:26 - CONCLUSION: 1. Small amount of fluid within the sphenoid sinus. The examination is otherwise unremarkable. Bi Breg MD Head CT 11/08/16 0000 Signed Impressions: Service Date/Time: November 18:15 - CONCLUSION: Normal examination. Ravi Ace MD Lower Extremity Ultrasound 11/07/16 0000 Signed Impressions: Service Date/Time: Monday, November 07, 2016 10:57 - CONCLUSION: No evidence of deep venous thrombosis within the lower extremities. Philippe Menendez MD Objective Remarks GENERAL: Well-nourished, well-developed patient INAD. Awake. Still with poverty of speech. [facility] SKIN: No rashes, ecchymoses or lesions. Warm and dry. HEENT: Atraumatic. Normocephalic. EOMI. MMM. (+)large amount of cerumen in left ear canal. Only able to visualize small portion of left TM which apears dull. Right ear canal WNL, TM appears dull. Oropharynx moist without any appreciable lesions or exudate. CARDIOVASCULAR: Tachycardia without murmurs, gallops, or rubs. RESPIRATORY: Lungs CTAB. Breath sounds equal bilaterally. No wheezes, rales, or rhonchi. GASTROINTESTINAL: Abdomen soft and nondistended and nontender to palpation. Bowel sounds normoactive. MUSCULOSKELETAL: Extremities without clubbing, cyanosis, or edema. Calves are supple bilaterally. Both feet in plantar flexion. (+)edema noted over the right ankle with small area of erythema over the medial aspect. No appreciable warmth. NEUROLOGICAL: Awake. Flat affect. Hypoverbal. Less bradykinetic movements noted today. Procedures 11/15/16 Lumbar Puncture 11/16/16 Dobhoff placement Medications and IVs Current Medications Medications (Trade) Dose Ordered Sig/Tien Route Start Time Stop Time Status Last Admin (Milk Of Magnesia Liq) 30 ml Q6H PRN PO 10/28/16 15:00 12/09/16 17:58 (Benadryl) 50 mg Q6H PRN PO 10/29/16 17:00 12/08/16 01:54 (Benadryl Inj) 50 mg Q6H PRN IM 10/29/16 17:00 11/13/16 05:20 (Tylenol) 650 mg Q4H PRN PO 10/29/16 17:00 12/02/16 08:46 (Ativan) 2 mg Q6H PRN PO 10/31/16 17:00 12/08/16 01:55 (Zofran Inj) 4 mg Q8HR PRN IV PUSH 11/01/16 13:30 11/28/16 12:58 (NS Flush) 2 ml UNSCH PRN IV FLUSH 11/12/16 14:15 (Fleets Enema (Adult)) 133 ml UNSCH PRN RECTAL 11/21/16 15:45 11/22/16 08:49 (Colace) 100 mg BID PO 11/25/16 21:00 12/13/16 20:58 (Miralax) 17 gm DAILY PO 11/27/16 11:30 12/14/16 08:21 (Dulcolax Supp) 10 mg DAILY PRN RECTAL 11/27/16 16:00 12/12/16 10:31 (Megace Liq) 400 mg DAILY PO 12/01/16 09:00 12/14/16 08:21 (Ativan) 2 mg Q4HR PO 12/04/16 12:00 12/14/16 08:20 Memantine 10 mg 10 mg BID PO 12/06/16 09:00 12/14/16 08:20 (NS 1000 ml Inj) 1,000 ml @ 50 mls/hr Q20H IV 12/07/16 15:15 12/13/16 09:16 (Pill Splitter) 1 ea UNSCH PRN OTHER 12/10/16 08:45 (Abilify) 15 mg DAILY PO 12/14/16 09:00 12/14/16 08:20 (ZyPREXA) 10 mg DAILY PO 12/14/16 09:00 12/14/16 08:20 (Lopressor) 25 mg Q8H PO 12/13/16 17:00 12/14/16 08:20 A/P Problem List: (1) Schizophrenia, paranoid type ICD Code: F20.0 Status: Acute (2) Unspecified psychosis ICD Code: F29 Status: Acute (3) Tachycardia ICD Code: R00.0 Status: Acute (4) Hypokalemia ICD Code: E87.6 Status: Resolved Assessment and Plan Patient is a 21-year-old white female with no known primary medical history who came in to the hospital from [facility] under [place] act secondary to being belligerent at home, acting out raking things and making suicidal statements. As per record, questionable smoking K2 as per nursing staff at [facility]. The patient also refused to give urine specimen for test. 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 Patient is now admitted to inpatient psychiatry unit for further evaluation. Consulted for medical management, tachycardia. Psychosis, paranoid schizophrenia, catatonia - Management by psychiatry team - CT scan and neurology consult requested by primary team - r/o organic cause of AMS ? - CT scan normal - seen in consultation by Neurology - MRI brain normal, EEG normal. s/p LP. Follow-up results. - ESR and CRP within normal, RPR and HIV within normal. - Continues to be exhibiting catatonia but with improving movement and verbalization. Discussed with Dr. Marie. Patient is candidate for ECT. Family agreeable. Patient approved by [employer] principal for ECT treatment. Patient has been presented to 3 facilities and declined by 2. Currently on the waiting list to [facility]. - Neurology consulted input appreciated. CSF normal, CSF paraneoplastic antibodies all negative. Per neuro, please call prn. - CT of the abdomen and pelvis normal examination - CT of the chest unremarkable CT chest. No infiltrate or mass. - Patient is on Ativan, Ambien and Abilify. Patients improvement waxes and wanes. She still remains bradykinetic and hypoverbal. - Continue with PT/OT. Receiving gastroc stretching. for plantar flexion of both feet. Patient complaining of bilateral foot pain. Consider podiatry consultation. Tachycardia - HR improved with increased frequency of Metoprolol. HR 97 - in part likely due to poor po intake/dehydration. - continue to encourage po/fluid intake - continue IVF hydration at [facility] - TSH WNL - continue metoprolol 25 mg q8h. - monitor HR Otitis media bilateral ears Left ear canal cerumen impaction - Debrox drops - Cipro HC 3 gtts bilateral ears x 7 days - monitor for improvement Right ankle pain/swelling/redness Bilateral feet in plantar flexion - labs ordered - Consult podiatry - continue participation with PT Poor by mouth intake Weight loss - Continue to encourage by mouth fluid intake - Ensure shakes - Previously on tube feeds - Calorie counts completed. Adequate intake. Dietitian following. - Continue on Megace Possible neuroleptic malignant syndrome, with positive muscle rigidity, elevated total creatine kinase and CK, tachycardia, and catatonia. - Total creatinine kinase needs hydration. CK 162 --> 342 --> 445 --> 533 -- > 357 --> 358 - Discussed with Dr. Marie - likely not NMS. - No appreciable muscle rigidity or tremors noted. - Monitor closely. Constipation - (+)BM yesterday - Continue Miralax daily - Continue Colace - per nursing difficulty swallowing pills, change to liquid Colace - monitor for BM DVT prophylaxis - Encourage ambulation. Discussed with patient, nursing, Dr. Rayna Holder,Carol KARIMI Dec 14, 2016 09:34
[2016-12-14 12:29] LABS: AUTOMATED NEUTROPHIL # 6.9 TH/MM3 (1.8-7.7); BASOPHIL % 0.3 % (0.0-2.0); EOSINOPHIL # 0.1 TH/MM3 (0-0.4); EOSINOPHIL % 1.2 % (0.0-4.0); HEMATOCRIT 40.5 % (35.0-46.0); HEMO FLAGS DIFF FINAL; LYMPH % 22.1 % (9.0-44.0); LYMPHOCYTE # 2.2 TH/MM3 (1.0-4.8); MEAN CELL VOLUME 93.7 FL (80.0-100.0); MEAN CORPUSCULAR HEMOGLOBIN 30.8 PG (27.0-34.0); MEAN CORPUSCULAR HGB CONC 32.9 % (32.0-36.0); MONO % 6.3 % (0.0-8.0); NEUT % 70.1 % (16.0-70.0); PLATELET COUNT 276 TH/MM3 (150-450); RED BLOOD COUNT 4.32 MIL/MM3 (4.00-5.30); RED CELL DISTRIBUTION WIDTH 13.1 % (11.6-17.2); WHITE BLOOD COUNT 9.8 TH/MM3 (4.0-11.0)
--- NOTE | 2016-12-14 12:35 | HHI.PYPN ---
Subjective Remarks This is the psychiatric progress note for December 13, 2016. Patient continues to show obvious evidence of catatonia and psychosis. She appears to be experiencing thought blocking and she appears to be responding to internal stimuli. There are times when she is more verbal and times when she is nonverbal. Today she is mostly nonverbal. She is not ambulating as well as she has in the past. This physician discussed changing her medication to Zyprexa and has written that order. Review of Systems ROS Limitations: Clinical Condition, Psychotic Objective Alert: Yes [place]: Person Mood: Anxious Affect: Restricted, Flat Memory Intact: Comment (Not formally assessed) Hallucinations: Other (appears somewhat internally preoccupied) Delusions: No Delusion Type: Other (no angelique delusions) Suicidal: Ideation (no SI) Homicidal: Ideation (no HI) Insight/Judgment Poor Vitals/IOs Vital Signs Date Time Temp Pulse Resp B/P Pulse Ox O2 Delivery O2 Flow Rate FiO2 12/14/16 05:21 97.8 97 18 110/73 98 Intake and Output 12/13/16 12/13/16 12/14/16 08:00 16:00 00:00 Intake Total 976 ml 1452 ml 360 ml Balance 976 ml 1452 ml 360 ml Assessment & Plan Problem List: (1) Unspecified psychosis ICD Code: F29 (2) Catatonia ICD Code: F06.1 Assessment & Plan Estimated LOS: 7 days this physician spoke with the patient's nurse regarding her recent and current behavior. This physician also spoke with the patient's father about changing medications. We will add Zyprexa and begin decreasing Abilify. It is anticipated we will titrate Zyprexa upwards to 20 mg a day at least. We will continue to taper the patient off Abilify. Justification for Cont. Inpt. Unable to care for self. Remains psychotic with catatonic features. Request HC Surrog/Guard Advoc?: Yes Placido Colin MD Dec 14, 2016 12:35
--- NOTE | 2016-12-14 12:38 | HHI.PYPN ---
Subjective Remarks ambulating better today and is going outside for fresh air. Still not talking very much but is responsive to staff requests and direction. Appears to be tolerating the Zyprexa rather well. This physician plans to increase the dose today and continue to drop the dose of Abilify. Case discussed with the patient's nurse regarding the patient's behavior and medication changes. Review of Systems ROS Limitations: Clinical Condition, Psychotic Objective Alert: Yes [place]: Person Mood: Anxious Affect: Restricted, Flat Memory Intact: Comment (Not formally assessed) Hallucinations: Other (appears somewhat internally preoccupied) Delusions: No Delusion Type: Other (no angelique delusions) Suicidal: Ideation (no SI) Homicidal: Ideation (no HI) Insight/Judgment Markedly impaired. Vitals/IOs Vital Signs Date Time Temp Pulse Resp B/P Pulse Ox O2 Delivery O2 Flow Rate FiO2 12/14/16 05:21 97.8 97 18 110/73 98 Intake and Output 12/13/16 12/13/16 12/14/16 08:00 16:00 00:00 Intake Total 976 ml 1452 ml 360 ml Balance 976 ml 1452 ml 360 ml Assessment & Plan Problem List: (1) Unspecified psychosis ICD Code: F29 (2) Catatonia ICD Code: F06.1 Assessment & Plan Estimated LOS: 7 days patient continues to demonstrate serious symptoms of psychosis, thought blocking, responding to internal stimuli, and catatonia. Abilify only provided a partial response and this physician suggested a change to Zyprexa. This was discussed with the nursing staff and the patient's father , who acts as her guardian. We will continue to titrate Zyprexa upwards and Abilify downwards. Justification for Cont. Inpt. Psychotic, catatonic and will decompensate at lower level of care. Request HC Surrog/Guard Advoc?: Yes Placido Colin MD Dec 14, 2016 12:38
[2016-12-14 12:40] LABS: BICARBONATE 24.1 MEQ/L (21.0-32.0); POTASSIUM 3.3 MEQ/L (3.5-5.1)
--- NOTE | 2016-12-14 12:45 | RADRPT ---
EXAM DATE/TIME: 12/14/2016 11:26 [place] COMPARISON: No previous studies available for comparison. INDICATIONS : Swollen right ankle. MEDICAL HISTORY : brief psychotic disorder SURGICAL HISTORY : None. ENCOUNTER: Initial ACUITY: 1 month PAIN SCORE: Non-responsive. LOCATION: Right ankle FINDINGS: Three view exam was performed of the right ankle. The bony structures are in normal alignment. No e vidence of fracture or dislocation. Mild soft tissue swelling primarily along the medial and anterior ankle. The ankle mortise is intact. No radiopaque foreign bodies or subcutaneous emphysema seen. B heriberto mineralization is normal. CONCLUSION: 1. Mild soft tissue swelling along the medial and anterior ankle without evidence for radiopaque fore ign bodies or subcutaneous emphysema. 2. No acute fracture or dislocation. Desmond Blevins MD on December 14, 2016 at 12:42 Board Certified Radiologist. This report was verified electronically.
[2016-12-14] MEDS ORDERED: POTASSIUM BICARBONATE 25 MEQ EFFERVESCENT TAB PO ONE (13:00)
[2016-12-14 13:31] LABS: MAGNESIUM 2.1 MG/DL (1.5-2.5)
[2016-12-14] MEDS: CARBAMIDE PEROXIDE 6.5% OTIC SOLN 15 ML BTL EACH EAR SCH ×2 (13:50→22:15)
[2016-12-14] MEDS: ACETAMINOPHEN 325 MG TAB PO PRN (15:46)
[2016-12-14] MEDS: ONDANSETRON HCL 4 MG/2 ML VIAL IV PUSH PRN (15:46)
[2016-12-14] MEDS: LORazepam 2 MG TAB PO PRN (16:07)
[2016-12-14 17:51] VITALS: BP 125/67; PULSE 121; RESP 18; O2SAT 99
[2016-12-14 18:50] LABS: BETA HCG QUANT LESS THAN 1 MIU/ML (0-5)
[2016-12-14] MEDS: CIPROFLOXACIN/HYDROCORTISONE OTIC 10 ML BTL EACH EAR SCH (22:15)
[2016-12-14] MEDS: DOCUSATE SODIUM 100 MG/10 ML UDC PO SCH (22:15)
[2016-12-15] MEDS: LORazepam 2 MG TAB PO SCH ×6 (00:35→21:00)
[2016-12-15] MEDS: METOPROLOL TARTRATE 25 MG TAB PO SCH ×2 (00:35→08:47)
[2016-12-15] MEDS: SODIUM CHLOR 0.9% 1000 ML INJ 1,000 ML IV SCH ×2 (03:15→19:00)
[2016-12-15 05:49] VITALS: BP 137/81; PULSE 112; RESP 16; TEMP 98; O2SAT 98
[2016-12-15] MEDS: ARIPiprazole 10 MG TAB PO SCH (08:47)
[2016-12-15] MEDS: MEMANTINE HCL 10 MG TAB PO SCH ×2 (08:48→21:24)
[2016-12-15] MEDS: DOCUSATE SODIUM 100 MG/10 ML UDC PO SCH ×2 (08:48→21:00)
[2016-12-15] MEDS: POLYETHYLENE GLYCOL 17 GM PKG PO SCH (08:48)
[2016-12-15] MEDS: MEGESTROL ACETATE SUSP 400 MG/10 ML CUP PO SCH (08:48)
[2016-12-15] MEDS: CIPROFLOXACIN/HYDROCORTISONE OTIC 10 ML BTL EACH EAR SCH ×2 (08:49→21:25)
--- NOTE | 2016-12-15 08:51 | HHI.PYPN ---
Subjective Remarks Patient seen in her room with nurse Yasemin, chart review, patient compliant with her medications. Patient noticed sitting on edge of bed with sitter present also. Sitter stating patient remains selectively mute though only infrequent very brief whispered responses though they appear fairly well goal oriented. Patient is taking some small amount of fluids. Otherwise patient remains quite psychomotor retarded. For now continue treatment Review of Systems Except as stated in HPI: all other systems reviewed are Neg Objective Alert: Yes [place]: Person Mood: Anxious Affect: Restricted, Flat Memory Intact: Comment (Not formally assessed) Hallucinations: Other (appears somewhat internally preoccupied) Delusions: No Delusion Type: Other (no angelique delusions) Suicidal: Ideation (no SI) Homicidal: Ideation (no HI) Insight/Judgment Very poor Labs Test 12/14/16 12/14/16 11:33 12:56 White Blood Count 9.8 TH/MM3 Red Blood Count 4.32 MIL/MM3 Hemoglobin 13.3 GM/DL Hematocrit 40.5 % Mean Corpuscular Volume 93.7 FL Mean Corpuscular Hemoglobin 30.8 PG Mean Corpuscular Hemoglobin 32.9 % Concent Red Cell Distribution Width 13.1 % Platelet Count 276 TH/MM3 Mean Platelet Volume 8.3 FL Neutrophils (%) (Auto) 70.1 % Lymphocytes (%) (Auto) 22.1 % Monocytes (%) (Auto) 6.3 % Eosinophils (%) (Auto) 1.2 % Basophils (%) (Auto) 0.3 % Neutrophils # (Auto) 6.9 TH/MM3 Lymphocytes # (Auto) 2.2 TH/MM3 Monocytes # (Auto) 0.6 TH/MM3 Eosinophils # (Auto) 0.1 TH/MM3 Basophils # (Auto) 0.0 TH/MM3 CBC Comment DIFF FINAL Differential Comment Sodium Level 142 MEQ/L Potassium Level 3.3 MEQ/L Chloride Level 107 MEQ/L Carbon Dioxide Level 24.1 MEQ/L Anion Gap 11 MEQ/L Blood Urea Nitrogen 9 MG/DL Creatinine 0.60 MG/DL Estimat Glomerular Filtration 127 ML/MIN Rate Random Glucose 112 MG/DL Calcium Level 9.4 MG/DL Phosphorus Level 3.6 MG/DL Magnesium Level 2.1 MG/DL Total Creatine Kinase 95 U/L Human Chorionic Gonadotropin, LESS THAN 1 Quant MIU/ML Vitals/IOs Vital Signs Date Time Temp Pulse Resp B/P Pulse Ox O2 Delivery O2 Flow Rate FiO2 12/15/16 05:49 98.0 112 16 137/81 98 Intake and Output 12/14/16 12/14/16 12/15/16 08:00 16:00 00:00 Intake Total 1434 ml 360 ml 720 ml Balance 1434 ml 360 ml 720 ml Assessment & Plan Problem List: (1) Unspecified psychosis ICD Code: F29 (2) Catatonia ICD Code: F06.1 Assessment & Plan Estimated LOS: days patient remains markedly psychomotor retarded with catatonic features. Compliant medications. Very poor oral intake noted. For now continue treatment Justification for Cont. Inpt. At this time patient will decompensate if placed in a lower level of care Discharge Planning To be determined Request HC Surrog/Guard Advoc?: Yes Ravi Roman MD Dec 15, 2016 08:51
[2016-12-15] MEDS: ONDANSETRON HCL 4 MG/2 ML VIAL IV PUSH PRN (12:00)
[2016-12-15] MEDS ORDERED: METOPROLOL TARTRATE 25 MG TAB PO ONE (12:45)
--- NOTE | 2016-12-15 12:49 | HHI.PR ---
Subjective Remarks Follow-up visit catatonia, poor nutrition, tachycardia. Patient seen and examined today. Patient is awake and alert. Patient is more talkative today. She informs me she had an in 2014. Also reports that she was overwhelmed. 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 She had a difficult chemistry class. She quit her job at [employer]. Then her boyfriend broke up with her. She stated she was a loser. She denies any ear pain today. No complaints of leg, foot or ankle pain. Nursing reports poor intake today. Did not eat any of breakfast. Objective Vitals Vital Signs Date Time Temp Pulse Resp B/P Pulse Ox O2 Delivery O2 Flow Rate FiO2 12/15/16 05:49 98.0 112 16 137/81 98 12/14/16 17:51 121 18 125/67 99 I/O 12/14/16 12/14/16 12/14/16 12/15/16 12/15/16 12/15/16 07:00 15:00 23:00 07:00 15:00 23:00 Intake Total 1434 ml 360 ml 720 ml 619 ml Balance 1434 ml 360 ml 720 ml 619 ml Intake Oral 940 ml 360 ml 720 ml 240 ml IV Total 494 ml 379 ml # Voids 3 5 2 Result Diagram: 12/14/16 1133 12/14/16 1133 Imaging Last Impressions Ankle X-Ray 12/14/16 0000 Signed Impressions: Service Date/Time: Wednesday, December 14, 2016 11:26 - CONCLUSION: 1. Mild soft tissue swelling along the medial and anterior ankle without evidence for radiopaque foreign bodies or subcutaneous emphysema. 2. No acute fracture or dislocation. Desmond Blevins MD Chest X-Ray 12/10/16 0000 Signed Impressions: Service Date/Time: Saturday, December 10, 2016 10:25 - CONCLUSION: 1. No acute cardiopulmonary findings. Bi Berg MD Abdomen X-Ray 11/27/16 0000 Signed Impressions: Service Date/Time: Sunday, November 27, 2016 13:47 - CONCLUSION: No acute abdominal abnormality is identified. Ravi Arriola MD Chest CT 11/15/16 0000 Signed Impressions: Service Date/Time: November 11:20 - CONCLUSION: 1. Unremarkable CT chest. 2. No infiltrate or mass. Prieto Rock MD Abdomen/Pelvis CT 11/15/16 0000 Signed Impressions: Service Date/Time: November 11:13 - CONCLUSION: Normal examination. Rolando Nuñez MD Lumbar Puncture Fluoroscopy 11/14/16 0000 Signed Impressions: Service Date/Time: November 10:46 - CONCLUSION: Uncomplicated fluoroscopically guided lumbar puncture. Florencio Leslie MD Brain MRI 11/09/16 0000 Signed Impressions: Service Date/Time: Wednesday, November 09, 2016 13:26 - CONCLUSION: 1. Small amount of fluid within the sphenoid sinus. The examination is otherwise unremarkable. Bi Berg MD Head CT 11/08/16 0000 Signed Impressions: Service Date/Time: November 18:15 - CONCLUSION: Normal examination. Ravi Ace MD Lower Extremity Ultrasound 11/07/16 0000 Signed Impressions: Service Date/Time: Monday, November 07, 2016 10:57 - CONCLUSION: No evidence of deep venous thrombosis within the lower extremities. Philippe Menendez MD Objective Remarks GENERAL: Well-nourished, well-developed patient INAD. Awake and alert. Much more talkative today. SKIN: No rashes, ecchymoses or lesions. Warm and dry. HEENT: Atraumatic. Normocephalic. EOMI. MMM. CARDIOVASCULAR: Tachycardia without murmurs, gallops, or rubs. RESPIRATORY: Lungs CTAB. Breath sounds equal bilaterally. No wheezes, rales, or rhonchi. GASTROINTESTINAL: Abdomen soft and nondistended and nontender to palpation. Bowel sounds normoactive. MUSCULOSKELETAL: Extremities without clubbing, cyanosis, or edema. Calves are supple bilaterally. Both feet in plantar flexion. (+)edema noted over the right ankle with small area of erythema over the medial aspect, much improved. No appreciable warmth. NEUROLOGICAL: Awake and alert. More talkative. Less bradykinetic movements noted today. Procedures 11/15/16 Lumbar Puncture 11/16/16 Dobhoff placement Medications and IVs Current Medications Medications (Trade) Dose Ordered Sig/Tien Route Start Time Stop Time Status Last Admin (Milk Of Magnesia Liq) 30 ml Q6H PRN PO 10/28/16 15:00 12/09/16 17:58 (Benadryl) 50 mg Q6H PRN PO 10/29/16 17:00 12/08/16 01:54 (Benadryl Inj) 50 mg Q6H PRN IM 10/29/16 17:00 11/13/16 05:20 (Tylenol) 650 mg Q4H PRN PO 10/29/16 17:00 12/14/16 15:46 (Ativan) 2 mg Q6H PRN PO 10/31/16 17:00 12/14/16 16:07 (Zofran Inj) 4 mg Q8HR PRN IV PUSH 11/01/16 13:30 12/15/16 12:00 (NS Flush) 2 ml UNSCH PRN IV FLUSH 11/12/16 14:15 (Fleets Enema (Adult)) 133 ml UNSCH PRN RECTAL 11/21/16 15:45 11/22/16 08:49 (Miralax) 17 gm DAILY PO 11/27/16 11:30 12/15/16 08:48 (Dulcolax Supp) 10 mg DAILY PRN RECTAL 11/27/16 16:00 12/12/16 10:31 (Megace Liq) 400 mg DAILY PO 12/01/16 09:00 12/15/16 08:48 (Ativan) 2 mg Q4HR PO 12/04/16 12:00 12/15/16 08:48 Memantine 10 mg 10 mg BID PO 12/06/16 09:00 12/15/16 08:48 (NS 1000 ml Inj) 1,000 ml @ 50 mls/hr Q20H IV 12/07/16 15:15 12/13/16 09:16 (Pill Splitter) 1 ea UNSCH PRN OTHER 12/10/16 08:45 (Lopressor) 25 mg Q8H PO 12/13/16 17:00 12/15/16 08:47 (Colace Liq) 100 mg Q12HR PO 12/14/16 21:00 12/15/16 08:48 (Abilify) 10 mg DAILY PO 12/15/16 09:00 12/15/16 08:47 (ZyPREXA) 15 mg DAILY PO 12/15/16 09:00 12/15/16 10:00 (Cipro-Hc Otic Soln) 3 drop BID EACH EAR 12/14/16 21:00 12/21/16 09:01 12/14/16 22:15 A/P Problem List: (1) Schizophrenia, paranoid type ICD Code: F20.0 Status: Acute (2) Unspecified psychosis ICD Code: F29 Status: Acute (3) Tachycardia ICD Code: R00.0 Status: Acute (4) Hypokalemia ICD Code: E87.6 Status: Resolved Assessment and Plan Patient is a 21-year-old white female with no known primary medical history who came in to the hospital from [facility] under [place] act secondary to being belligerent at home, acting out raking things and making suicidal statements. As per record, questionable smoking K2 as per nursing staff at [facility]. The patient also refused to give urine specimen for test. 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 Patient is now admitted to inpatient psychiatry unit for further evaluation. Consulted for medical management, tachycardia. Psychosis, paranoid schizophrenia, catatonia - Management by psychiatry team - CT scan and neurology consult requested by primary team - r/o organic cause of AMS ? - CT scan normal - seen in consultation by Neurology - MRI brain normal, EEG normal. s/p LP. Follow-up results. - ESR and CRP within normal, RPR and HIV within normal. - Continues to be exhibiting catatonia but with improving movement and verbalization. Discussed with Dr. Marie. Patient is candidate for ECT. Family agreeable. Patient approved by [place] court screen printer helper for ECT treatment. Patient has been presented to 3 facilities and declined by 2. Currently on the waiting list to [facility]. - Neurology consulted input appreciated. CSF normal, CSF paraneoplastic antibodies all negative. Per neuro, please call prn. - CT of the abdomen and pelvis normal examination - CT of the chest unremarkable CT chest. No infiltrate or mass. - Patient is on Ativan, Ambien and Abilify. Patients improvement waxes and wanes. She still remains bradykinetic and hypoverbal. - Continue with PT/OT. Receiving gastroc stretching. for plantar flexion of both feet. Patient complaining of bilateral foot pain. Tachycardia - HR still not controlled - in part likely due to poor po intake/dehydration. - continue to encourage po/fluid intake - continue IVF hydration at night - TSH WNL - Increase metoprolol to 50mg BID. - monitor HR Otitis media bilateral ears Left ear canal cerumen impaction - Debrox drops discontinued - Cipro HC 3 gtts bilateral ears x 7 days - monitor for improvement Right ankle pain/swelling/redness Bilateral feet in plantar flexion - improved - white count normal - Consult podiatry - continue participation with PT Poor by mouth intake Weight loss - Continue to encourage by mouth fluid intake - Ensure shakes - Previously on tube feeds - Calorie counts completed. Adequate intake. Dietitian following. - Continue on Megace Possible neuroleptic malignant syndrome, with positive muscle rigidity, elevated total creatine kinase and CK, tachycardia, and catatonia. - Total creatinine kinase needs hydration. CK 162 --> 342 --> 445 --> 533 -- > 357 --> 358 - Discussed with Dr. Marie - likely not NMS. - No appreciable muscle rigidity or tremors noted. - Monitor closely. Constipation - (+)BM 6/8 - Continue Miralax daily - Continue Colace - monitor for BM Hypokalemia - s/p repletion - am labs pending DVT prophylaxis - Encourage ambulation. Discussed with patient, nursing, Carol Kilgore Dec 15, 2016 12:49
[2016-12-15 18:44] VITALS: BP 125/72; PULSE 100; RESP 16; TEMP 97.8; O2SAT 100
[2016-12-15] MEDS ORDERED: LORazepam 2 MG/ML VIAL ONE (20:45)
[2016-12-15] MEDS: LORazepam 2 MG TAB PO PRN (21:01)
[2016-12-15] MEDS: METOPROLOL TARTRATE 50 MG TAB PO SCH (21:24)
[2016-12-16] MEDS: LORazepam 2 MG TAB PO SCH ×7 (00:10→20:00)
[2016-12-16 04:44] VITALS: BP 103/78; PULSE 97; RESP 17; TEMP 97.8; O2SAT 98
[2016-12-16] MEDS: CIPROFLOXACIN/HYDROCORTISONE OTIC 10 ML BTL EACH EAR SCH ×2 (08:39→20:51)
[2016-12-16] MEDS: DOCUSATE SODIUM 100 MG/10 ML UDC PO SCH ×3 (08:40→20:53)
[2016-12-16] MEDS: METOPROLOL TARTRATE 50 MG TAB PO SCH ×2 (08:40→20:51)
[2016-12-16] MEDS: MEGESTROL ACETATE SUSP 400 MG/10 ML CUP PO SCH (08:40)
[2016-12-16] MEDS: MAGNESIUM HYDROXIDE SUSP 30 ML CUP PO PRN (08:40)
[2016-12-16] MEDS: MEMANTINE HCL 10 MG TAB PO SCH ×2 (08:40→20:52)
[2016-12-16] MEDS: POLYETHYLENE GLYCOL 17 GM PKG PO SCH (08:40)
[2016-12-16] MEDS: ARIPiprazole 10 MG TAB PO SCH (08:40)
[2016-12-16] MEDS: ACETAMINOPHEN 325 MG TAB PO PRN ×2 (11:17→20:33)
--- NOTE | 2016-12-16 14:42 | HHI.PYPN ---
Subjective Remarks Patient seen in her room with nurse Yasemin and patient's sister. Patient alert making very brief whisper responses to me. Staff states though that it appears patient at times is noncompliant with her oral scheduled Ativan, it appears she has been cheeking them and hiding them under her pillow. Will order Ativan 1 mg IM every 4 hours to be given in his place if patient refuses the oral 2 mg dose Review of Systems Except as stated in HPI: all other systems reviewed are Neg Objective Alert: Yes [place]: Person Mood: Anxious Affect: Restricted, Flat Memory Intact: Comment (Not formally assessed) Hallucinations: Other (appears somewhat internally preoccupied) Delusions: No Delusion Type: Other (no angelique delusions) Suicidal: Ideation (no SI) Homicidal: Ideation (no HI) Insight/Judgment Very poor Vitals/IOs Vital Signs Date Time Temp Pulse Resp B/P Pulse Ox O2 Delivery O2 Flow Rate FiO2 12/16/16 04:44 97.8 97 17 103/78 98 Intake and Output 12/15/16 12/15/16 12/16/16 08:00 16:00 00:00 Intake Total 619 ml 480 ml Balance 619 ml 480 ml Assessment & Plan Problem List: (1) Unspecified psychosis ICD Code: F29 (2) Catatonia ICD Code: F06.1 Assessment & Plan Estimated LOS: days patient continues with catatonic features, and occasional noncompliance with medication, see medication adjustment above Justification for Cont. Inpt. At this time patient will decompensate if placed in the lower level of care Discharge Planning To be determined Request HC Surrog/Guard Advoc?: Yes Ravi Roman MD Dec 16, 2016 14:42
[2016-12-16] MEDS: LORazepam 2 MG/ML VIAL IM SCH ×3 (14:45→21:28)
--- NOTE | 2016-12-16 15:17 | HHI.PR ---
Subjective Remarks Follow-up visit catatonia, tachycardia. Patient seen and examined today. Continues to have bradykinesia, more responsive. No acute issues overnight as per staff. Denies pain and discomfort. Denies SOB/ dyspnea. Denies chest pain , palpitations, headaches, dizziness. Denies fevers, chills, n/v/d. Denies hematuria, dysuria. Objective Vitals Vital Signs Date Time Temp Pulse Resp B/P Pulse Ox O2 Delivery O2 Flow Rate FiO2 12/16/16 04:44 97.8 97 17 103/78 98 12/15/16 18:44 97.8 100 16 125/72 100 I/O 12/15/16 12/15/16 12/15/16 12/16/16 12/16/16 12/16/16 07:00 15:00 23:00 07:00 15:00 23:00 Intake Total 619 ml 480 ml 743 ml 360 ml Balance 619 ml 480 ml 743 ml 360 ml Intake Oral 240 ml 480 ml 120 ml 360 ml IV Total 379 ml 623 ml # Voids 2 3 2 1 Result Diagram: 12/14/16 1133 12/15/16 1130 Imaging Last Impressions Ankle X-Ray 12/14/16 0000 Signed Impressions: Service Date/Time: Wednesday, December 14, 2016 11:26 - CONCLUSION: 1. Mild soft tissue swelling along the medial and anterior ankle without evidence for radiopaque foreign bodies or subcutaneous emphysema. 2. No acute fracture or dislocation. Desmond Blevins MD Chest X-Ray 12/10/16 0000 Signed Impressions: Service Date/Time: Saturday, December 10, 2016 10:25 - CONCLUSION: 1. No acute cardiopulmonary findings. Bi Berg MD Abdomen X-Ray 11/27/16 0000 Signed Impressions: Service Date/Time: Sunday, November 27, 2016 13:47 - CONCLUSION: No acute abdominal abnormality is identified. Ravi Arriola MD Chest CT 11/15/16 0000 Signed Impressions: Service Date/Time: November 11:20 - CONCLUSION: 1. Unremarkable CT chest. 2. No infiltrate or mass. Prieto Rock MD Abdomen/Pelvis CT 11/15/16 0000 Signed Impressions: Service Date/Time: November 11:13 - CONCLUSION: Normal examination. Rolando Nuñez MD Lumbar Puncture Fluoroscopy 11/14/16 0000 Signed Impressions: Service Date/Time: November 10:46 - CONCLUSION: Uncomplicated fluoroscopically guided lumbar puncture. Florencio Leslie MD Brain MRI 11/09/16 0000 Signed Impressions: Service Date/Time: Wednesday, November 09, 2016 13:26 - CONCLUSION: 1. Small amount of fluid within the sphenoid sinus. The examination is otherwise unremarkable. Bi Berg MD Head CT 11/08/16 0000 Signed Impressions: Service Date/Time: November 18:15 - CONCLUSION: Normal examination. Ravi Ace MD Lower Extremity Ultrasound 11/07/16 0000 Signed Impressions: Service Date/Time: Monday, November 07, 2016 10:57 - CONCLUSION: No evidence of deep venous thrombosis within the lower extremities. Philippe Menendez MD Objective Remarks GENERAL: pt. is a well-developed patient, NAD. Awake. SKIN: Facial acne, no ecchymoses or lesions. Warm and dry. HEAD: Atraumatic. Normocephalic. EOMI. CARDIOVASCULAR: Tachycardia without murmurs, gallops, or rubs. RESPIRATORY: CTA. Breath sounds equal bilaterally. No wheezes, rales, or rhonchi. GASTROINTESTINAL: Abdomen soft, nondistended. Bowel sounds hypoactive. Voiding without difficulty. MUSCULOSKELETAL: Extremities without clubbing, cyanosis, or edema. NEUROLOGICAL: Awake and alert. No rigidity but slow bradykinetic movements noted. Hypoverbal. Moves all extremities. Procedures 11/15/16 Lumbar Puncture 11/16/16 Dobhoff placement A/P Problem List: (1) Schizophrenia, paranoid type ICD Code: F20.0 Status: Acute (2) Unspecified psychosis ICD Code: F29 Status: Acute (3) Tachycardia ICD Code: R00.0 Status: Acute (4) Hypokalemia ICD Code: E87.6 Status: Resolved Assessment and Plan Patient is a 21-year-old white female with no known primary medical history who came in to the hospital from [facility] under [place] act secondary to being belligerent at home, acting out raking things and making suicidal statements. As per record, questionable smoking K2 as per nursing staff at [facility]. The patient also refused to give urine specimen for test. 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 Patient is now admitted to inpatient psychiatry unit for further evaluation. Consulted for medical management, tachycardia. Psychosis, paranoid schizophrenia - Management by psychiatry team - CT scan and neurology consult requested by primary team - r/o organic cause of AMS ? - CT scan normal - seen in consultation by Neurology - MRI brain normal, EEG normal. LP. Follow-up results - ESR and CRP within normal, RPR and HIV within normal. - Neurology consulted input appreciated. CSF normal, encephalitis antibodies may take 2-3 weeks for results. As per neuro, consider per psychiatric presentation. - Lumbar puncture. Results within normal - CT of the abdomen and pelvis normal examination - CT of the chest unremarkable CT chest. No infiltrate or mass. - As per staff, psychiatrist spoke with father for possible ECT treatment. Family agreeable. Patient approved by [place] court press hand supervisor for ECT treatment. Patient has been presented to 3 facilities and declined by 2. Currently on the waiting list to [facility]. - Medication adjustment from psychiatry continues for psych management. - Medication adjustment done by psychiatry has improved patient's condition slowly. Now communicates more and participates with psych treatment activity. Tachycardia - Most likely related to paranoia and anxiety - elevated HR may be due in part to dehydration given poor po intake, encourage fluids/increased po intake. Ensure shakes. - TSH WNL. - On and off IV fluids. - Patient previously was on propranolol but now switched over to metoprolol 50 mg twice a day Otitis media bilateral ears Left ear canal cerumen impaction - On Cipro HC 3 gtts bilateral ears x 7 days - monitor for improvement Right ankle pain/swelling/redness Bilateral feet in plantar flexion - Improved with elevation - Consult podiatry - continue participation with PT Poor by mouth intake Weight loss - Previously was on tube feeds. - On Megace - Now patient is able to have by mouth intake. As per staff adequate by mouth intake. Possible neuroleptic malignant syndrome, with positive muscle rigidity, elevated total creatine kinase and CK, tachycardia, and catatonia. - Discussed with Dr. Marie - likely not NMS. - No appreciable muscle rigidity or tremors noted. - Monitor closely Constipation - Bowel regimen MiraLAX daily, fleets enema when necessary, bisacodyl when necessary BLE pain/discomfort - Bilateral US to r/o DVT negative DVT prophylaxis: encourage ambulation. Discussed with patient, nursing, Mary Carrillo Dec 16, 2016 15:17
[2016-12-16 17:52] VITALS: BP 132/63; PULSE 132; RESP 16; TEMP 98; O2SAT 99
[2016-12-16] MEDS: SODIUM CHLOR 0.9% 1000 ML INJ 1,000 ML IV SCH (19:15)
[2016-12-17] MEDS: LORazepam 2 MG/ML VIAL IM SCH ×2 (02:45→05:28)
[2016-12-17] MEDS: LORazepam 2 MG TAB PO SCH ×6 (04:00→20:20)
[2016-12-17 04:55] VITALS: BP 111/72; PULSE 98; RESP 16; TEMP 98.2; O2SAT 99
[2016-12-17] MEDS ORDERED: LORazepam 2 MG/ML VIAL IM PRN (07:37)
[2016-12-17] MEDS: DOCUSATE SODIUM 100 MG/10 ML UDC PO SCH ×2 (08:15→20:20)
[2016-12-17] MEDS: MEMANTINE HCL 10 MG TAB PO SCH ×2 (08:15→20:20)
[2016-12-17] MEDS: ARIPiprazole 10 MG TAB PO SCH (08:15)
[2016-12-17] MEDS: MEGESTROL ACETATE SUSP 400 MG/10 ML CUP PO SCH (08:15)
[2016-12-17] MEDS: POLYETHYLENE GLYCOL 17 GM PKG PO SCH (08:15)
[2016-12-17] MEDS: METOPROLOL TARTRATE 50 MG TAB PO SCH ×2 (08:15→20:20)
[2016-12-17] MEDS: CIPROFLOXACIN/HYDROCORTISONE OTIC 10 ML BTL EACH EAR SCH ×2 (08:15→20:21)
--- NOTE | 2016-12-17 08:48 | MB ---
cc: KELSEY PEARL DPM DATE OF CONSULTATION 12/14/16 CHIEF COMPLAINT Bilateral ankle contractures and right lower extremity swelling. HISTORY OF PRESENT ILLNESS Ms. Singer is a 21-year-old patient who was admitted for a psychiatric disorder. She was catatonic upon admission in late October 28 with very little mobility due to personal introitus but no noted physical disability. I have been consulted as physical therapy has been trying to work with the patient since December 01 and she is still walking and unable to place the heels on the floor. I spoke with the patient's father. He stated that she ambulated normally prior to her admission and he does not recall any toe walking or difficulty with ambulation. The patient is nonverbal and most information is obtained from nursing staff, the chart and the patient's family. The patient has no relevant medical history or surgical history. 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 She has no alcohol or drug abuse to her knowledge. PHYSICAL EXAMINATION She has bilateral DP and PT palpable pulses. Cap fill time less than 3 seconds. Gross sensation appears to be in touch. Mild edema to the right medial and lateral ankles soft to touch. Severe equinus at the left and moderate equinus at the right. The patient is unable to get to neutral. She is proximally negative 20 degrees on the right, negative 30 degrees on the left. X-rays are unremarkable. The joint space is normal, no bony blocking or obstruction of the ankle joint itself. is intact. ASSESSMENT/PLAN 1. Bilateral equinus, left greater than right. - No clear explanation for the edema, but it is soft and not painful to touch and is of minimal concern - The patient's equinus by all historical reports developed between October 28 and November 29. She is severely tight and contracted with extremely limited mobility. This in more severe than what your would expect to see in a one-month period of decreased ambulation. Unfortunately, the only treatment options for severe equinus and toe walking are surgically lengthening the Achilles tendon or physical therapy and bracing. I am uncertain of how to obtain braces for the patient. She would benefit from a night splint to wear on the anterior aspect of both ankles while at rest so that the ankles and the Achilles tendon can be continuously stretched. Physical therapy also relates a weakness and an inversion of the ankle which may benefit from a Zia style brace, but again I am very uncertain as to how to obtain these for the patient. At this time, they are not available in house and I am uncertain if [employer] or one of the other prosthetic companies is able to come and dispense while in-house. -At this time, my one recommendation is continued physical therapy and bracing if available. Please call for any questions or clarifications. I appreciate the consultation and wish that I could provide more treatment options. However, options are very limited at this time. Kelsey BOWER/ /6:02 PM /8:47 AM Visit #: [place] Visit Search.Visit Number [id number]
[2016-12-17] MEDS: SODIUM CHLOR 0.9% 1000 ML INJ 1,000 ML IV SCH (11:35)
--- NOTE | 2016-12-17 11:38 | HHI.PR ---
Subjective Remarks Follow-up visit catatonia, bilateral lower ankles edema. Patient seen and examined today. Prior lower extremity edema continues to persist but patient denies any pain even to palpation. As per staff, patient has been walking around this morning without difficulty but with some discomfort after ambulation. Otherwise, denies SOB/ dyspnea. Denies chest pain, palpitations, headaches, dizziness. Denies fevers, chills, n/v/d. Denies hematuria, dysuria. Objective Vitals Vital Signs Date Time Temp Pulse Resp B/P Pulse Ox O2 Delivery O2 Flow Rate FiO2 12/17/16 04:55 98.2 98 16 111/72 99 12/16/16 17:52 98.0 132 16 132/63 99 I/O 12/16/16 12/16/16 12/16/16 12/17/16 12/17/16 12/17/16 07:00 15:00 23:00 07:00 15:00 23:00 Intake Total 743 ml 360 ml 360 ml 415 ml Output Total 1 ml Balance 743 ml 360 ml 359 ml 415 ml Intake Oral 120 ml 360 ml 360 ml IV Total 623 ml 415 ml Stool Total 1 ml # Voids 2 1 1 Result Diagram: 12/14/16 1133 12/15/16 1130 Imaging Last Impressions Ankle X-Ray 12/14/16 0000 Signed Impressions: Service Date/Time: Wednesday, December 14, 2016 11:26 - CONCLUSION: 1. Mild soft tissue swelling along the medial and anterior ankle without evidence for radiopaque foreign bodies or subcutaneous emphysema. 2. No acute fracture or dislocation. Desmond Blevins MD Chest X-Ray 12/10/16 0000 Signed Impressions: Service Date/Time: Saturday, December 10, 2016 10:25 - CONCLUSION: 1. No acute cardiopulmonary findings. Bi Berg MD Abdomen X-Ray 11/27/16 0000 Signed Impressions: Service Date/Time: Sunday, November 27, 2016 13:47 - CONCLUSION: No acute abdominal abnormality is identified. Ravi Arriola MD Chest CT 11/15/16 0000 Signed Impressions: Service Date/Time: November 11:20 - CONCLUSION: 1. Unremarkable CT chest. 2. No infiltrate or mass. Prieto Rock MD Abdomen/Pelvis CT 11/15/16 0000 Signed Impressions: Service Date/Time: November 11:13 - CONCLUSION: Normal examination. Rolando Nuñez MD Lumbar Puncture Fluoroscopy 11/14/16 0000 Signed Impressions: Service Date/Time: November 10:46 - CONCLUSION: Uncomplicated fluoroscopically guided lumbar puncture. Florencio Leslie MD Brain MRI 11/09/16 0000 Signed Impressions: Service Date/Time: Wednesday, November 09, 2016 13:26 - CONCLUSION: 1. Small amount of fluid within the sphenoid sinus. The examination is otherwise unremarkable. Bi Berg MD Head CT 11/08/16 0000 Signed Impressions: Service Date/Time: November 18:15 - CONCLUSION: Normal examination. Ravi Ace MD Lower Extremity Ultrasound 11/07/16 0000 Signed Impressions: Service Date/Time: Monday, November 07, 2016 10:57 - CONCLUSION: No evidence of deep venous thrombosis within the lower extremities. Philippe Menendez MD Objective Remarks GENERAL: pt. is a well-developed patient, NAD. Awake. SKIN: Facial acne, no ecchymoses or lesions. Warm and dry. HEAD: Atraumatic. Normocephalic. EOMI. CARDIOVASCULAR: Tachycardia without murmurs, gallops, or rubs. RESPIRATORY: CTA. Breath sounds equal bilaterally. No wheezes, rales, or rhonchi. GASTROINTESTINAL: Abdomen soft, nondistended. Bowel sounds hypoactive. Voiding without difficulty. MUSCULOSKELETAL: Extremities without clubbing, cyanosis, or edema. NEUROLOGICAL: Awake and alert. No rigidity but slow bradykinetic movements noted. Hypoverbal with responds to some questions and commands. Moves all extremities. Procedures 11/15/16 Lumbar Puncture 11/16/16 Dobhoff placement A/P Problem List: (1) Schizophrenia, paranoid type ICD Code: F20.0 Status: Acute (2) Unspecified psychosis ICD Code: F29 Status: Acute (3) Tachycardia ICD Code: R00.0 Status: Acute (4) Hypokalemia ICD Code: E87.6 Status: Resolved Assessment and Plan Patient is a 21-year-old white female with no known primary medical history who came in to the hospital from [facility] under [place] act secondary to being belligerent at home, acting out raking things and making suicidal statements. As per record, questionable smoking K2 as per nursing staff at [facility]. The patient also refused to give urine specimen for test. 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 Patient is now admitted to inpatient psychiatry unit for further evaluation. Consulted for medical management, tachycardia. Right ankle pain/swelling/redness Bilateral feet in plantar flexion - Improved with elevation - Consult podiatry - continue participation with PT - Ankle x-ray showed mild soft tissue swelling along the medial and anterior ankle without evidence for radiopaque foreign-bodies or subcutaneous emphysema. No acute fracture or dislocation. - Lasix 1 dose now. Potassium 1 dose now. BMP in the morning. - Leg elevation while at rest. Ronnie use. Psychosis, paranoid schizophrenia - Management by psychiatry team - CT scan and neurology consult requested by primary team - r/o organic cause of AMS ? - CT scan normal - seen in consultation by Neurology - MRI brain normal, EEG normal. LP. Follow-up results - ESR and CRP within normal, RPR and HIV within normal. - Neurology consulted input appreciated. CSF normal, encephalitis antibodies may take 2-3 weeks for results. As per neuro, consider per psychiatric presentation. - Lumbar puncture. Results within normal - CT of the abdomen and pelvis normal examination - CT of the chest unremarkable CT chest. No infiltrate or mass. - As per staff, psychiatrist spoke with father for possible ECT treatment. Family agreeable. Patient approved by [place] [employer] [address] social and human services assistant for ECT treatment. Patient has been presented to 3 facilities and declined by 2. Currently on the waiting list to [facility]. - Medication adjustment from psychiatry continues for psych management. - Medication adjustment done by psychiatry has improved patient's condition slowly. Now communicates more and participates with psych treatment activity. Tachycardia - Most likely related to paranoia and anxiety - elevated HR may be due in part to dehydration given poor po intake, encourage fluids/increased po intake. Ensure shakes. - TSH WNL. - On and off IV fluids. - Patient previously was on propranolol but now switched over to metoprolol 50 mg twice a day Otitis media bilateral ears Left ear canal cerumen impaction - On Cipro HC 3 gtts bilateral ears x 7 days - monitor for improvement Poor by mouth intake Weight loss - Previously was on tube feeds. - On Megace - Now patient is able to have by mouth intake. As per staff adequate by mouth intake. Possible neuroleptic malignant syndrome, with positive muscle rigidity, elevated total creatine kinase and CK, tachycardia, and catatonia. - Discussed with Dr. Marie - likely not NMS. - No appreciable muscle rigidity or tremors noted. - Monitor closely Constipation - Bowel regimen MiraLAX daily, fleets enema when necessary, bisacodyl when necessary BLE pain/discomfort - Bilateral US to r/o DVT negative DVT prophylaxis: encourage ambulation. Discussed with patient, nursing, Mary Carrillo Dec 17, 2016 11:38
[2016-12-17] MEDS ORDERED: FUROSEMIDE 40 MG/5 ML UNIT DOSE CUP PO ONE (13:45)
[2016-12-17] MEDS ORDERED: POTASSIUM CHLORIDE 20 MEQ CONTROLLED RELEASE TAB PO ONE (13:45)
[2016-12-17 16:00] VITALS: BP 113/69; PULSE 102; RESP 21; TEMP 98; O2SAT 96
[2016-12-17 20:57] VITALS: BP 111/63; PULSE 104; RESP 16; TEMP 98.4; O2SAT 98
[2016-12-18] MEDS: LORazepam 2 MG TAB PO SCH ×6 (04:00→21:01)
[2016-12-18 05:43] VITALS: BP 109/56; PULSE 108; RESP 16; TEMP 98.4
[2016-12-18] MEDS: METOPROLOL TARTRATE 50 MG TAB PO SCH ×2 (08:26→21:01)
[2016-12-18] MEDS: MEMANTINE HCL 10 MG TAB PO SCH ×2 (08:26→21:01)
[2016-12-18] MEDS: DOCUSATE SODIUM 100 MG/10 ML UDC PO SCH ×2 (08:26→21:00)
[2016-12-18] MEDS: MEGESTROL ACETATE SUSP 400 MG/10 ML CUP PO SCH (08:27)
[2016-12-18] MEDS: CIPROFLOXACIN/HYDROCORTISONE OTIC 10 ML BTL EACH EAR SCH ×2 (08:27→21:01)
[2016-12-18] MEDS: POLYETHYLENE GLYCOL 17 GM PKG PO SCH (09:00)
[2016-12-18] MEDS ORDERED: OLANZapine 10 MG TAB PO SCH (09:00)
[2016-12-18] MEDS ORDERED: LACTULOSE SYRUP 20 GM/30 ML CUP PO ONE (10:45)
[2016-12-18] MEDS ORDERED: LACTULOSE SYRUP 20 GM/30 ML CUP PO PRN (10:45)
--- NOTE | 2016-12-18 13:21 | HHI.PR ---
Subjective Remarks Follow-up visit catatonia, bilateral ankle swelling. Patient seen and examined today. Tearful, states her back is hurting her. She is lying in the bed with her legs elevated. Assisted patient to set up and get out of bed. Otherwise, denies SOB/ dyspnea. Denies chest pain, palpitations, headaches, dizziness. Denies fevers, chills, n/v/d. Denies hematuria, dysuria. As per staff, patient started having a bowel movement for a few days. Objective Vitals Vital Signs Date Time Temp Pulse Resp B/P Pulse Ox O2 Delivery O2 Flow Rate FiO2 12/18/16 05:43 98.4 108 16 109/56 12/17/16 20:57 98.4 104 16 111/63 98 12/17/16 16:00 98.0 102 21 113/69 96 I/O 12/17/16 12/17/16 12/17/16 12/18/16 12/18/16 12/18/16 07:00 15:00 23:00 07:00 15:00 23:00 Intake Total 415 ml 480 ml 360 ml 120 ml 1440 ml Balance 415 ml 480 ml 360 ml 120 ml 1440 ml Intake Oral 480 ml 360 ml 120 ml 1200 ml Oral Supplement 240 ml IV Total 415 ml # Voids 2 1 1 1 # Bowel Movements 1 1 1 Result Diagram: 12/14/16 1133 12/15/16 1130 Imaging Last Impressions Ankle X-Ray 12/14/16 0000 Signed Impressions: Service Date/Time: Wednesday, December 14, 2016 11:26 - CONCLUSION: 1. Mild soft tissue swelling along the medial and anterior ankle without evidence for radiopaque foreign bodies or subcutaneous emphysema. 2. No acute fracture or dislocation. Desmond Blevins MD Chest X-Ray 12/10/16 0000 Signed Impressions: Service Date/Time: Saturday, December 10, 2016 10:25 - CONCLUSION: 1. No acute cardiopulmonary findings. Bi Berg MD Abdomen X-Ray 11/27/16 0000 Signed Impressions: Service Date/Time: Sunday, November 27, 2016 13:47 - CONCLUSION: No acute abdominal abnormality is identified. Ravi Arriola MD Chest CT 11/15/16 0000 Signed Impressions: Service Date/Time: November 11:20 - CONCLUSION: 1. Unremarkable CT chest. 2. No infiltrate or mass. Prieto Rock MD Abdomen/Pelvis CT 11/15/16 0000 Signed Impressions: Service Date/Time: November 11:13 - CONCLUSION: Normal examination. Rolando Nuñez MD Lumbar Puncture Fluoroscopy 11/14/16 0000 Signed Impressions: Service Date/Time: November 10:46 - CONCLUSION: Uncomplicated fluoroscopically guided lumbar puncture. Florencio Leslie MD Brain MRI 11/09/16 0000 Signed Impressions: Service Date/Time: Wednesday, November 09, 2016 13:26 - CONCLUSION: 1. Small amount of fluid within the sphenoid sinus. The examination is otherwise unremarkable. Bi Berg MD Head CT 11/08/16 0000 Signed Impressions: Service Date/Time: November 18:15 - CONCLUSION: Normal examination. Ravi Ace MD Lower Extremity Ultrasound 11/07/16 0000 Signed Impressions: Service Date/Time: Monday, November 07, 2016 10:57 - CONCLUSION: No evidence of deep venous thrombosis within the lower extremities. Philippe Menendez MD Objective Remarks GENERAL: pt. is a well-developed patient, NAD. Awake. SKIN: Facial acne, no ecchymoses or lesions. Warm and dry. HEAD: Atraumatic. Normocephalic. EOMI. CARDIOVASCULAR: Tachycardia without murmurs, gallops, or rubs. RESPIRATORY: CTA. Breath sounds equal bilaterally. No wheezes, rales, or rhonchi. GASTROINTESTINAL: Abdomen soft, nondistended. Bowel sounds hypoactive. Voiding without difficulty. MUSCULOSKELETAL: Extremities without clubbing, cyanosis, or edema. NEUROLOGICAL: Awake and alert. No rigidity but slow bradykinetic movements noted. Hypoverbal with responds to some questions and commands. Moves all extremities. Procedures 11/15/16 Lumbar Puncture 11/16/16 Dobhoff placement A/P Problem List: (1) Schizophrenia, paranoid type ICD Code: F20.0 Status: Acute (2) Unspecified psychosis ICD Code: F29 Status: Acute (3) Tachycardia ICD Code: R00.0 Status: Acute (4) Hypokalemia ICD Code: E87.6 Status: Resolved Assessment and Plan Patient is a 21-year-old white female with no known primary medical history who came in to the hospital from [facility] under [place] act secondary to being belligerent at home, acting out raking things and making suicidal statements. As per record, questionable smoking K2 as per nursing staff at [facility]. The patient also refused to give urine specimen for test. 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 Patient is now admitted to inpatient psychiatry unit for further evaluation. Consulted for medical management, tachycardia. Right ankle pain/swelling/redness Bilateral feet in plantar flexion - Improved with elevation - continue participation with PT - Ankle x-ray showed mild soft tissue swelling along the medial and anterior ankle without evidence for radiopaque foreign-bodies or subcutaneous emphysema. No acute fracture or dislocation. - Leg elevation while at rest. Ronnie use. - Podiatry consulted. Bilateral equinus, left greater than the right. Recommended continued physical therapy and bracing night splints, with Achilles tendon stretching. Psychosis, paranoid schizophrenia - Management by psychiatry team - CT scan and neurology consult requested by primary team - r/o organic cause of AMS ? - CT scan normal - seen in consultation by Neurology - MRI brain normal, EEG normal. LP. Follow-up results - ESR and CRP within normal, RPR and HIV within normal. - Neurology consulted input appreciated. CSF normal, encephalitis antibodies may take 2-3 weeks for results. As per neuro, consider per psychiatric presentation. - Lumbar puncture. Results within normal - CT of the abdomen and pelvis normal examination - CT of the chest unremarkable CT chest. No infiltrate or mass. - As per staff, psychiatrist spoke with father for possible ECT treatment. Family agreeable. Patient approved by [employer] postal service clerk for ECT treatment. Patient has been presented to 3 facilities and declined by 2. Currently on the waiting list to [facility]. - Medication adjustment from psychiatry continues for psych management. - Medication adjustment done by psychiatry has improved patient's condition slowly. Now communicates more and participates with psych treatment activity. Tachycardia - Most likely related to paranoia and anxiety - elevated HR may be due in part to dehydration given poor po intake, encourage fluids/increased po intake. Ensure shakes. - TSH WNL. - On and off IV fluids. - Patient previously was on propranolol but now switched over to metoprolol 50 mg twice a day Otitis media bilateral ears Left ear canal cerumen impaction - On Cipro HC 3 gtts bilateral ears x 7 days - monitor for improvement Poor by mouth intake Weight loss - Previously was on tube feeds. - On Megace - Now patient is able to have by mouth intake. As per staff adequate by mouth intake. Possible neuroleptic malignant syndrome, with positive muscle rigidity, elevated total creatine kinase and CK, tachycardia, and catatonia. - Discussed with Dr. Marie - likely not NMS. - No appreciable muscle rigidity or tremors noted. - Monitor closely Constipation - Bowel regimen MiraLAX daily, fleets enema when necessary, bisacodyl when necessary - Lactulose x1 dose now and PRN BLE pain/discomfort - Bilateral US to r/o DVT negative DVT prophylaxis: encourage ambulation. Discussed with patient, nursing, Mary Porter Dec 18, 2016 13:21
--- NOTE | 2016-12-18 14:51 | HHI.PYPN ---
Subjective Remarks Not speaking today but was ambulating earlier. Still demonstrates catatonic behavior. Review of Systems Except as stated in HPI: all other systems reviewed are Neg Objective Alert: Yes [employer]: Person Mood: Anxious Affect: Restricted, Flat Memory Intact: Comment (Not formally assessed) Hallucinations: Other (appears somewhat internally preoccupied) Delusions: No Delusion Type: Other (no angelique delusions) Suicidal: Ideation (no SI) Homicidal: Ideation (no HI) Insight/Judgment poor. Vitals/IOs Vital Signs Date Time Temp Pulse Resp B/P Pulse Ox O2 Delivery O2 Flow Rate FiO2 12/18/16 05:43 98.4 108 16 109/56 12/17/16 20:57 98 Intake and Output 12/17/16 12/17/16 12/18/16 08:00 16:00 00:00 Intake Total 415 ml 720 ml 120 ml Balance 415 ml 720 ml 120 ml Assessment & Plan Problem List: (1) Unspecified psychosis ICD Code: F29 (2) Catatonia ICD Code: F06.1 Assessment & Plan Estimated LOS: 7 days If pt. can learn to walk without assistance, she may be a candidate for care at home. Will cont to titrate Zyprexa. Justification for Cont. Inpt. Will decompensate at lower level of care. Request HC Surrog/Guard Advoc?: Yes Placido Colin MD Dec 18, 2016 14:51
[2016-12-18 16:12] VITALS: BP 109/56; PULSE 108; RESP 16; TEMP 98.4; O2SAT 98
[2016-12-19] MEDS: LORazepam 2 MG TAB PO SCH ×7 (01:00→23:45)
[2016-12-19 06:00] VITALS: BP 123/64; PULSE 131; RESP 18; TEMP 97.7; O2SAT 98
[2016-12-19] MEDS ORDERED: LACTULOSE SYRUP 20 GM/30 ML CUP PO PRN (09:00)
[2016-12-19] MEDS: DOCUSATE SODIUM 100 MG/10 ML UDC PO SCH ×2 (09:00→20:47)
[2016-12-19] MEDS: CIPROFLOXACIN/HYDROCORTISONE OTIC 10 ML BTL EACH EAR SCH ×2 (09:00→20:47)
[2016-12-19] MEDS: MEGESTROL ACETATE SUSP 400 MG/10 ML CUP PO SCH (09:00)
[2016-12-19] MEDS: METOPROLOL TARTRATE 50 MG TAB PO SCH ×2 (09:11→20:47)
[2016-12-19] MEDS: MEMANTINE HCL 10 MG TAB PO SCH ×2 (09:11→20:47)
[2016-12-19] MEDS: POLYETHYLENE GLYCOL 17 GM PKG PO SCH (09:12)
[2016-12-19] MEDS: OLANZapine 10 MG TAB PO SCH (10:15)
[2016-12-19] MEDS: ACETAMINOPHEN 325 MG TAB PO PRN (10:56)
--- NOTE | 2016-12-19 12:49 | HHI.PYPN ---
Subjective Remarks Patient transferred from 4 E. to 2600 were I will be caring for patient. Chart reviewed Patient seen in day room with sitter nurse Yasemin and nurse Pura. Patient is alert clean neatly dressed appears to be well aware of her surroundings though she continues with significant catatonia she is markedly psychomotor retarded, makes poor eye contact, has posturing and waxy flexibility. Her verbal responses are minimal to nothing whisper one or 2 words. She does have a pencil in her hand she is barely able to write one or 2 words. That appear she her oral intake is somewhat improved with encouragement from her sitter. Patient compliant medications. For now continue treatment Review of Systems Except as stated in HPI: all other systems reviewed are Neg Objective Alert: Yes [place]: Person Mood: Anxious Affect: Restricted, Flat Memory Intact: Comment (Not formally assessed) Hallucinations: Other (appears somewhat internally preoccupied) Delusions: No Delusion Type: Other (no angelique delusions) Suicidal: Ideation (no SI) Homicidal: Ideation (no HI) Insight/Judgment Very poor Vitals/IOs Vital Signs Date Time Temp Pulse Resp B/P Pulse Ox O2 Delivery O2 Flow Rate FiO2 12/19/16 06:00 97.7 131 18 123/64 98 Intake and Output 12/18/16 12/18/16 12/19/16 08:00 16:00 00:00 Intake Total 120 ml 1440 ml 240 ml Balance 120 ml 1440 ml 240 ml Assessment & Plan Problem List: (1) Unspecified psychosis ICD Code: F29 (2) Catatonia ICD Code: F06.1 Assessment & Plan Estimated LOS: days patient continues quite catatonic marked psychomotor retardation. For now continue treatment Justification for Cont. Inpt. At this time patient will decompensate placed in a lower level of care Discharge Planning To be determined Request HC Surrog/Guard Advoc?: Yes Ravi Roman MD Dec 19, 2016 12:49
--- NOTE | 2016-12-19 15:44 | HHI.PR ---
Subjective Remarks Follow-up visit catatonia, bilateral ankle swelling. Patient is not verbalizing much today. Appears in pain, she is grimacing and tachycardic. Per RN she hasn' t been taking much today, but was given Tylenol with no relief. Objective Vitals Vital Signs Date Time Temp Pulse Resp B/P Pulse Ox O2 Delivery O2 Flow Rate FiO2 12/19/16 06:00 97.7 131 18 123/64 98 12/18/16 16:12 98.4 108 16 109/56 98 I/O 12/18/16 12/18/16 12/18/16 12/19/16 12/19/16 12/19/16 06:59 14:59 22:59 06:59 14:59 22:59 Intake Total 120 ml 1440 ml 240 ml 720 ml Balance 120 ml 1440 ml 240 ml 720 ml Intake Oral 120 ml 1200 ml 240 ml 720 ml Oral Supplement 240 ml # Voids 1 1 # Bowel Movements 1 2 Result Diagram: 12/15/16 1130 Objective Remarks GENERAL: pt. is a well-developed patient, NAD. Awake. SKIN: Facial acne, no ecchymoses or lesions. Warm and dry. HEAD: Atraumatic. Normocephalic. EOMI. CARDIOVASCULAR: Tachycardia without murmurs, gallops, or rubs. RESPIRATORY: CTA. Breath sounds equal bilaterally. No wheezes, rales, or rhonchi. GASTROINTESTINAL: Abdomen soft, nondistended. Bowel sounds hypoactive. Voiding without difficulty. MUSCULOSKELETAL: Extremities without clubbing, cyanosis, or edema. NEUROLOGICAL: Awake and alert. No rigidity but slow bradykinetic movements noted. Hypoverbal with responds to some questions and commands. Moves all extremities. Procedures 11/15/16 Lumbar Puncture 11/16/16 Dobhoff placement Medications and IVs Current Medications Medications (Trade) Dose Ordered Sig/Tien Route Start Time Stop Time Status Last Admin (Milk Of Magnesia Liq) 30 ml Q6H PRN PO 10/28/16 15:00 12/16/16 08:40 (Benadryl) 50 mg Q6H PRN PO 10/29/16 17:00 12/08/16 01:54 (Benadryl Inj) 50 mg Q6H PRN IM 10/29/16 17:00 11/13/16 05:20 (Tylenol) 650 mg Q4H PRN PO 10/29/16 17:00 12/19/16 10:56 (Ativan) 2 mg Q6H PRN PO 10/31/16 17:00 12/15/16 21:01 (Zofran Inj) 4 mg Q8HR PRN IV PUSH 11/01/16 13:30 12/15/16 12:00 (NS Flush) 2 ml UNSCH PRN IV FLUSH 11/12/16 14:15 (Fleets Enema (Adult)) 133 ml UNSCH PRN RECTAL 11/21/16 15:45 11/22/16 08:49 (Miralax) 17 gm DAILY PO 11/27/16 11:30 12/19/16 09:12 (Dulcolax Supp) 10 mg DAILY PRN RECTAL 11/27/16 16:00 12/12/16 10:31 (Megace Liq) 400 mg DAILY PO 12/01/16 09:00 12/19/16 09:00 (Ativan) 2 mg Q4HR PO 12/04/16 12:00 12/19/16 12:00 (Namenda) 10 mg BID PO 12/06/16 09:00 12/19/16 09:11 (Pill Splitter) 1 ea UNSCH PRN OTHER 12/10/16 08:45 (Colace Liq) 100 mg Q12HR PO 12/14/16 21:00 12/18/16 08:26 (Cipro-Hc Otic Soln) 3 drop BID EACH EAR 12/14/16 21:00 12/21/16 09:01 12/18/16 21:01 (Lopressor) 50 mg Q12HR PO 12/15/16 21:00 12/19/16 09:11 (Ativan Inj) 1 mg Q4H PRN IM 12/17/16 07:37 (Lactulose Liq) 30 ml DAILY PRN PO 12/19/16 09:00 (ZyPREXA) 25 mg DAILY PO 12/19/16 09:00 12/19/16 10:15 (Flexeril) 5 mg Q8HR PRN PO 12/19/16 15:15 UNV A/P Problem List: (1) Schizophrenia, paranoid type ICD Code: F20.0 Status: Acute (2) Unspecified psychosis ICD Code: F29 Status: Acute (3) Tachycardia ICD Code: R00.0 Status: Acute (4) Hypokalemia ICD Code: E87.6 Status: Resolved Assessment and Plan Patient is a 21-year-old white female with no known primary medical history who came in to the hospital from [facility] under [place] act secondary to being belligerent at home, acting out raking things and making suicidal statements. As per record, questionable smoking K2 as per nursing staff at [facility]. The patient also refused to give urine specimen for test. 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 Patient is now admitted to inpatient psychiatry unit for further evaluation. Consulted for medical management, tachycardia. Right ankle pain/swelling/redness Bilateral feet in plantar flexion - Improved with elevation - continue participation with PT - Ankle x-ray showed mild soft tissue swelling along the medial and anterior ankle without evidence for radiopaque foreign-bodies or subcutaneous emphysema. No acute fracture or dislocation. - Leg elevation while at rest. Ronnie use. - Podiatry consulted. Bilateral equinus, left greater than the right. Recommended continued physical therapy and bracing night splints, with Achilles tendon stretching. Psychosis, paranoid schizophrenia - Management by psychiatry team - CT scan and neurology consult requested by primary team - r/o organic cause of AMS ? - CT scan normal - seen in consultation by Neurology - MRI brain normal, EEG normal. LP. Follow-up results - ESR and CRP within normal, RPR and HIV within normal. - Neurology consulted input appreciated. CSF normal, encephalitis antibodies may take 2-3 weeks for results. As per neuro, consider per psychiatric presentation. - Lumbar puncture. Results within normal - CT of the abdomen and pelvis normal examination - CT of the chest unremarkable CT chest. No infiltrate or mass. - As per staff, psychiatrist spoke with father for possible ECT treatment. Family agreeable. Patient approved by [place] [employer] court supervisor policy change clerks for ECT treatment. Patient has been presented to 3 facilities and declined by 2. Currently on the waiting list to [facility]. - Medication adjustment from psychiatry continues for psych management. - Medication adjustment done by psychiatry has improved patient's condition slowly. Now communicates more and participates with psych treatment activity. Tachycardia - Most likely related to paranoia, anxiety and pain - elevated HR may be due in part to dehydration given poor po intake, encourage fluids/increased po intake. Ensure shakes. - TSH WNL. - Patient previously was on propranolol but now switched over to metoprolol 50 mg twice a day -Add Flexeril for pain Otitis media bilateral ears Left ear canal cerumen impaction - Cont Cipro HC 3 gtts bilateral ears x 7 days - monitor for improvement Poor by mouth intake Weight loss - Previously was on tube feeds. - On Megace - Now patient is able to have by mouth intake. As per staff adequate by mouth intake. Possible neuroleptic malignant syndrome, with positive muscle rigidity, elevated total creatine kinase and CK, tachycardia, and catatonia. - Discussed with Dr. Marie - likely not NMS. - No appreciable muscle rigidity or tremors noted. - Monitor closely Constipation - Cont Bowel regimen MiraLAX daily, fleets enema when necessary, bisacodyl when necessary BLE pain/discomfort - Bilateral US to r/o DVT negative DVT prophylaxis: encourage ambulation. Angela Ludwig Dec 19, 2016 15:44
[2016-12-19 17:57] VITALS: BP 135/88; PULSE 121; RESP 18; TEMP 98; O2SAT 97
[2016-12-20] MEDS: LORazepam 2 MG TAB PO SCH ×5 (04:14→21:36)
[2016-12-20 06:28] VITALS: BP 112/61; PULSE 98; RESP 16; TEMP 97.9; O2SAT 99
[2016-12-20] MEDS: METOPROLOL TARTRATE 50 MG TAB PO SCH ×2 (08:33→21:36)
[2016-12-20] MEDS: OLANZapine 10 MG TAB PO SCH (08:33)
[2016-12-20] MEDS: MEMANTINE HCL 10 MG TAB PO SCH ×2 (08:34→21:36)
[2016-12-20] MEDS: POLYETHYLENE GLYCOL 17 GM PKG PO SCH (08:36)
--- NOTE | 2016-12-20 11:56 | HHI.PYPN ---
Subjective Remarks Patient seen in her room patient laying in bed also present was her sitter nurse Yasemin and counselor Latrice, patient compliant medications, though she still remains markedly psychomotor retarded catatonic with very flat facial expression, although movements are quite slow and delayed. While staff states she does ambulate somewhat on her toes independently they are right there in case there is a fall however she is eating more independently. We also talked with patient's father, Ravi, related telephone, he is concerned about the roadblocks to getting ECT the fact that his daughter has been moved from one unit to another, for increased to 2600. We did speak about continuing treatment. With Dr. Mc who is been her primary psychiatrist will be back on Saturday and we can discuss this further on that day about options. Patient's father feels that he would like the opportunity to give her a trial at home. This needs to be further discussed Review of Systems Except as stated in HPI: all other systems reviewed are Neg Objective Alert: Yes [place]: Person Mood: Anxious Affect: Restricted, Flat Memory Intact: Comment (Not formally assessed) Hallucinations: Other (appears somewhat internally preoccupied) Delusions: No Delusion Type: Other (no angelique delusions) Suicidal: Ideation (no SI) Homicidal: Ideation (no HI) Insight/Judgment Very poor Vitals/IOs Vital Signs Date Time Temp Pulse Resp B/P Pulse Ox O2 Delivery O2 Flow Rate FiO2 12/20/16 06:28 97.9 98 16 112/61 99 Intake and Output 12/19/16 12/19/16 12/20/16 08:00 16:00 00:00 Intake Total 720 ml 480 ml Balance 720 ml 480 ml Assessment & Plan Problem List: (1) Unspecified psychosis ICD Code: F29 (2) Catatonia ICD Code: F06.1 Assessment & Plan Estimated LOS: days patient continues markedly catatonic psychomotor retarded. Needing significant assistance with all her activities. For now continue treatment Justification for Cont. Inpt. At this time patient will decompensate if placed in a lower level of care Discharge Planning To be determined Request HC Surrog/Guard Advoc?: Yes Ravi Roman MD Dec 20, 2016 11:56
[2016-12-20] MEDS: DOCUSATE SODIUM 100 MG/10 ML UDC PO SCH ×2 (13:45→21:36)
[2016-12-20] MEDS: MEGESTROL ACETATE SUSP 400 MG/10 ML CUP PO SCH (13:45)
[2016-12-20] MEDS: CIPROFLOXACIN/HYDROCORTISONE OTIC 10 ML BTL EACH EAR SCH ×2 (13:53→21:36)
[2016-12-20 16:03] VITALS: BP 106/61; PULSE 108; RESP 18; TEMP 97.8; O2SAT 99
[2016-12-21] MEDS: LORazepam 2 MG TAB PO SCH ×6 (00:26→20:56)
[2016-12-21 06:30] VITALS: BP 109/61; PULSE 94; RESP 16; TEMP 97.9; O2SAT 99
[2016-12-21] MEDS: MEGESTROL ACETATE SUSP 400 MG/10 ML CUP PO SCH (09:06)
[2016-12-21] MEDS: POLYETHYLENE GLYCOL 17 GM PKG PO SCH (09:07)
[2016-12-21] MEDS: DOCUSATE SODIUM 100 MG/10 ML UDC PO SCH ×2 (09:07→20:56)
[2016-12-21] MEDS: OLANZapine 10 MG TAB PO SCH (09:09)
[2016-12-21] MEDS: METOPROLOL TARTRATE 50 MG TAB PO SCH ×2 (09:10→20:56)
[2016-12-21] MEDS: MEMANTINE HCL 10 MG TAB PO SCH ×2 (09:11→20:56)
[2016-12-21] MEDS: CIPROFLOXACIN/HYDROCORTISONE OTIC 10 ML BTL EACH EAR SCH (09:12)
--- NOTE | 2016-12-21 11:07 | HHI.PYPN ---
Subjective Remarks Patient seen walking in the workman with her sitter who walking independently, patient been seen in her room taking directions able to sit down in bed and move herself into the bed without assistance. She appears somewhat more focused and alert with good eye contact though there is still significant psychomotor retardation with catatonic features. Her verbal replies are slow brief and delayed. Review of Systems Except as stated in HPI: all other systems reviewed are Neg Objective Alert: Yes [place]: Person Mood: Anxious Affect: Restricted, Flat Memory Intact: Comment (Not formally assessed) Hallucinations: Other (appears somewhat internally preoccupied) Delusions: No Delusion Type: Other (no angelique delusions) Suicidal: Ideation (no SI) Homicidal: Ideation (no HI) Insight/Judgment Poor Vitals/IOs Vital Signs Date Time Temp Pulse Resp B/P Pulse Ox O2 Delivery O2 Flow Rate FiO2 12/21/16 06:30 97.9 94 16 109/61 99 Assessment & Plan Problem List: (1) Unspecified psychosis ICD Code: F29 (2) Catatonia ICD Code: F06.1 Assessment & Plan Estimated LOS: days patient showing slight increase in independent movement, though the catatonia persists. Her appetite is doing slightly better. Compliant meds For now continue treatment Justification for Cont. Inpt. At this time patient will decompensate the placed in a lower level of care Discharge Planning To be determined Request HC Surrog/Guard Advoc?: Yes Ravi Roman MD Dec 21, 2016 11:06
--- NOTE | 2016-12-21 17:06 | HHI.PR ---
Subjective Remarks Follow-up visit catatonia, bilateral ankle swelling. Patient seen and examined today. Minimal verbalization. As per nursing, patient has been walking around the unit. Denies pain and discomfort. Denies SOB/ dyspnea. Denies chest pain, palpitations, headaches, dizziness. Denies fevers, chills, n/v/d. Objective Vitals Vital Signs Date Time Temp Pulse Resp B/P Pulse Ox O2 Delivery O2 Flow Rate FiO2 12/21/16 06:30 97.9 94 16 109/61 99 I/O 12/20/16 12/20/16 12/20/16 12/21/16 12/21/16 12/21/16 07:00 15:00 23:00 07:00 15:00 23:00 Intake Total 360 ml Balance 360 ml Intake Oral 360 ml Imaging Last Impressions Ankle X-Ray 12/14/16 0000 Signed Impressions: Service Date/Time: Wednesday, December 14, 2016 11:26 - CONCLUSION: 1. Mild soft tissue swelling along the medial and anterior ankle without evidence for radiopaque foreign bodies or subcutaneous emphysema. 2. No acute fracture or dislocation. Desmond Blevins MD Chest X-Ray 12/10/16 0000 Signed Impressions: Service Date/Time: Saturday, December 10, 2016 10:25 - CONCLUSION: 1. No acute cardiopulmonary findings. Bi Berg MD Abdomen X-Ray 11/27/16 0000 Signed Impressions: Service Date/Time: Sunday, November 27, 2016 13:47 - CONCLUSION: No acute abdominal abnormality is identified. Ravi Arriola MD Chest CT 11/15/16 0000 Signed Impressions: Service Date/Time: November 11:20 - CONCLUSION: 1. Unremarkable CT chest. 2. No infiltrate or mass. Prieto Rock MD Abdomen/Pelvis CT 11/15/16 0000 Signed Impressions: Service Date/Time: November 11:13 - CONCLUSION: Normal examination. Rolando Nuñez MD Lumbar Puncture Fluoroscopy 11/14/16 0000 Signed Impressions: Service Date/Time: November 10:46 - CONCLUSION: Uncomplicated fluoroscopically guided lumbar puncture. Florencio Leslie MD Brain MRI 11/09/16 0000 Signed Impressions: Service Date/Time: Wednesday, November 09, 2016 13:26 - CONCLUSION: 1. Small amount of fluid within the sphenoid sinus. The examination is otherwise unremarkable. Bi Berg MD Head CT 11/08/16 0000 Signed Impressions: Service Date/Time: November 18:15 - CONCLUSION: Normal examination. Ravi Ace MD Lower Extremity Ultrasound 11/07/16 0000 Signed Impressions: Service Date/Time: Monday, November 07, 2016 10:57 - CONCLUSION: No evidence of deep venous thrombosis within the lower extremities. Philippe Menendez MD Objective Remarks GENERAL: Pt. is a well-developed patient, NAD. Awake. SKIN: Facial acne, no ecchymoses or lesions. Warm and dry. HEAD: Atraumatic. Normocephalic. EOMI. CARDIOVASCULAR: Tachycardia without murmurs, gallops, or rubs. RESPIRATORY: CTA. Breath sounds equal bilaterally. No wheezes, rales, or rhonchi. GASTROINTESTINAL: Abdomen soft, nondistended. Bowel sounds hypoactive. Voiding without difficulty. MUSCULOSKELETAL: Extremities without clubbing, cyanosis, or edema. NEUROLOGICAL: Awake and alert. No rigidity but slow bradykinetic movements noted. Hypoverbal responds to some questions and commands. Mimics. Moves all extremities. Procedures 11/15/16 Lumbar Puncture 11/16/16 Dobhoff placement A/P Problem List: (1) Schizophrenia, paranoid type ICD Code: F20.0 Status: Acute (2) Unspecified psychosis ICD Code: F29 Status: Acute (3) Tachycardia ICD Code: R00.0 Status: Acute (4) Hypokalemia ICD Code: E87.6 Status: Resolved Assessment and Plan Patient is a 21-year-old white female with no known primary medical history who came in to the hospital from [facility] under [place] act secondary to being belligerent at home, acting out raking things and making suicidal statements. As per record, questionable smoking K2 as per nursing staff at [facility]. The patient also refused to give urine specimen for test. 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 Patient is now admitted to inpatient psychiatry unit for further evaluation. Consulted for medical management, tachycardia. Right ankle pain/swelling/redness Bilateral feet in plantar flexion BLE pain/discomfort - Bilateral US to r/o DVT negative - continue participation with PT - Ankle x-ray showed mild soft tissue swelling along the medial and anterior ankle without evidence for radiopaque foreign-bodies or subcutaneous emphysema. No acute fracture or dislocation. - Leg elevation while at rest. Ronnie use. - Podiatry consulted. Bilateral equinus, left greater than the right. Recommended continued physical therapy and bracing night splints, with Achilles tendon stretching. - May use acewraps at night for splinting, brace not available for now Psychosis, paranoid schizophrenia - Management by psychiatry team - CT scan and neurology consult requested by primary team - r/o organic cause of AMS ? - CT scan normal - seen in consultation by Neurology - MRI brain normal, EEG normal. LP. Follow-up results - ESR and CRP within normal, RPR and HIV within normal. - Neurology consulted input appreciated. CSF normal, encephalitis antibodies may take 2-3 weeks for results. As per neuro, consider per psychiatric presentation. - Lumbar puncture. Results within normal - CT of the abdomen and pelvis normal examination - CT of the chest unremarkable CT chest. No infiltrate or mass. - As per staff, psychiatrist spoke with father for possible ECT treatment. Family agreeable. Patient approved by [place] court collection officer for ECT treatment. Patient has been presented to 3 facilities and declined by 2. Currently on the waiting list to [facility]. - Medication adjustment from psychiatry continues for psych management. - Medication adjustment done by psychiatry has improved patient's condition slowly. Now communicates more and participates with psych treatment activity. Tachycardia - Most likely related to paranoia and anxiety - elevated HR may be due in part to dehydration given poor po intake, encourage fluids/increased po intake. Ensure shakes. - TSH WNL. - On and off IV fluids. - Patient previously was on propranolol but now switched over to metoprolol 50 mg twice a day - Monitor trend Poor by mouth intake Weight loss - Previously was on tube feeds. - On Megace - Now patient is able to have by mouth intake. As per staff adequate by mouth intake. Possible neuroleptic malignant syndrome, with positive muscle rigidity, elevated total creatine kinase and CK, tachycardia, and catatonia. - Discussed with Dr. Marie - likely not NMS. - No appreciable muscle rigidity or tremors noted. - Monitor closely Constipation - Bowel regimen MiraLAX daily, fleets enema when necessary, bisacodyl when necessary DVT prophylaxis: encourage ambulation. Discussed with patient, nursing, Mary Porter Dec 21, 2016 17:06
[2016-12-22] MEDS: LORazepam 2 MG TAB PO SCH ×7 (01:03→23:53)
[2016-12-22 06:18] VITALS: BP 108/71; PULSE 101; RESP 18; TEMP 97.6; O2SAT 98
[2016-12-22] MEDS: MEMANTINE HCL 10 MG TAB PO SCH ×2 (09:29→20:21)
[2016-12-22] MEDS: MEGESTROL ACETATE SUSP 400 MG/10 ML CUP PO SCH (09:29)
[2016-12-22] MEDS: METOPROLOL TARTRATE 50 MG TAB PO SCH ×2 (09:29→20:21)
[2016-12-22] MEDS: OLANZapine 10 MG TAB PO SCH (09:29)
[2016-12-22] MEDS: POLYETHYLENE GLYCOL 17 GM PKG PO SCH (09:29)
[2016-12-22] MEDS: DOCUSATE SODIUM 100 MG/10 ML UDC PO SCH ×2 (09:30→20:21)
--- NOTE | 2016-12-22 14:33 | HHI.PR ---
Subjective Remarks Follow-up visit catatonia, bilateral ankle swelling. Patient seen and examined today. Ambulating in the hallway toe walking. Patient had shortening of Achilles tendon. Otherwise, continues to be hypoverbal, mimics actions and activity. Denies pain and discomfort. Denies chest pain, palpitations, headaches , dizziness. Denies fevers, chills, n/v/d. Objective Vitals Vital Signs Date Time Temp Pulse Resp B/P Pulse Ox O2 Delivery O2 Flow Rate FiO2 12/22/16 06:18 97.6 101 18 108/71 98 I/O 12/21/16 12/21/16 12/21/16 12/22/16 12/22/16 12/22/16 07:00 15:00 23:00 07:00 15:00 23:00 Intake Total 360 ml Balance 360 ml Intake Oral 360 ml Imaging Last Impressions Ankle X-Ray 12/14/16 0000 Signed Impressions: Service Date/Time: Wednesday, December 14, 2016 11:26 - CONCLUSION: 1. Mild soft tissue swelling along the medial and anterior ankle without evidence for radiopaque foreign bodies or subcutaneous emphysema. 2. No acute fracture or dislocation. Desmond Blevins MD Chest X-Ray 12/10/16 0000 Signed Impressions: Service Date/Time: Saturday, December 10, 2016 10:25 - CONCLUSION: 1. No acute cardiopulmonary findings. Bi Berg MD Abdomen X-Ray 11/27/16 0000 Signed Impressions: Service Date/Time: Sunday, November 27, 2016 13:47 - CONCLUSION: No acute abdominal abnormality is identified. Ravi Arriola MD Chest CT 11/15/16 0000 Signed Impressions: Service Date/Time: November 11:20 - CONCLUSION: 1. Unremarkable CT chest. 2. No infiltrate or mass. Prieto Rock MD Abdomen/Pelvis CT 11/15/16 0000 Signed Impressions: Service Date/Time: November 11:13 - CONCLUSION: Normal examination. Rolando Nuñez MD Lumbar Puncture Fluoroscopy 11/14/16 0000 Signed Impressions: Service Date/Time: November 10:46 - CONCLUSION: Uncomplicated fluoroscopically guided lumbar puncture. Florencio Leslie MD Brain MRI 11/09/16 0000 Signed Impressions: Service Date/Time: Wednesday, November 09, 2016 13:26 - CONCLUSION: 1. Small amount of fluid within the sphenoid sinus. The examination is otherwise unremarkable. Bi Berg MD Head CT 11/08/16 0000 Signed Impressions: Service Date/Time: November 18:15 - CONCLUSION: Normal examination. Ravi Ace MD Lower Extremity Ultrasound 11/07/16 0000 Signed Impressions: Service Date/Time: Monday, November 07, 2016 10:57 - CONCLUSION: No evidence of deep venous thrombosis within the lower extremities. Philippe Menendez MD Objective Remarks GENERAL: Pt. is a well-developed patient, NAD. Awake. SKIN: Facial acne, no ecchymoses or lesions. Warm and dry. HEAD: Atraumatic. Normocephalic. EOMI. CARDIOVASCULAR: Tachycardia without murmurs, gallops, or rubs. RESPIRATORY: CTA. Breath sounds equal bilaterally. No wheezes, rales, or rhonchi. GASTROINTESTINAL: Abdomen soft, nondistended. Bowel sounds hypoactive. Voiding without difficulty. MUSCULOSKELETAL: Extremities without clubbing, cyanosis, or edema. NEUROLOGICAL: Awake and alert. No rigidity but slow bradykinetic movements noted. Hypoverbal responds to some questions and commands. Mimics. Moves all extremities. Procedures 11/15/16 Lumbar Puncture 11/16/16 Dobhoff placement A/P Problem List: (1) Schizophrenia, paranoid type ICD Code: F20.0 Status: Acute (2) Unspecified psychosis ICD Code: F29 Status: Acute (3) Tachycardia ICD Code: R00.0 Status: Acute (4) Hypokalemia ICD Code: E87.6 Status: Resolved Assessment and Plan Patient is a 21-year-old white female with no known primary medical history who came in to the hospital from [facility] under [place] act secondary to being belligerent at home, acting out raking things and making suicidal statements. As per record, questionable smoking K2 as per nursing staff at [facility]. The patient also refused to give urine specimen for test. 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 Patient is now admitted to inpatient psychiatry unit for further evaluation. Consulted for medical management, tachycardia. Right ankle pain/swelling/redness Bilateral feet in plantar flexion BLE pain/discomfort - Bilateral US to r/o DVT negative - continue participation with PT - Ankle x-ray showed mild soft tissue swelling along the medial and anterior ankle without evidence for radiopaque foreign-bodies or subcutaneous emphysema. No acute fracture or dislocation. - Leg elevation while at rest. Ronnie use. - Podiatry consulted. Bilateral equinus, left greater than the right. Recommended continued physical therapy and bracing night splints, with Achilles tendon stretching. - May use acewraps at night for splinting, brace not available for now - Toe walking, needs AFO brace, will ask orthotech/ nursing to order Psychosis, paranoid schizophrenia - Management by psychiatry team - CT scan and neurology consult requested by primary team - r/o organic cause of AMS ? - CT scan normal - seen in consultation by Neurology - MRI brain normal, EEG normal. LP. Follow-up results - ESR and CRP within normal, RPR and HIV within normal. - Neurology consulted input appreciated. CSF normal, encephalitis antibodies may take 2-3 weeks for results. As per neuro, consider per psychiatric presentation. - Lumbar puncture. Results within normal - CT of the abdomen and pelvis normal examination - CT of the chest unremarkable CT chest. No infiltrate or mass. - As per staff, psychiatrist spoke with father for possible ECT treatment. Family agreeable. Patient approved by [place] court metal template maker for ECT treatment. Patient has been presented to 3 facilities and declined by 2. Currently on the waiting list to [facility]. - Medication adjustment from psychiatry continues for psych management. - Medication adjustment done by psychiatry has improved patient's condition slowly. Now communicates more and participates with psych treatment activity. Tachycardia - Most likely related to paranoia and anxiety - elevated HR may be due in part to dehydration given poor po intake, encourage fluids/increased po intake. Ensure shakes. - TSH WNL. - On and off IV fluids. - Patient previously was on propranolol but now switched over to metoprolol 50 mg twice a day - Monitor trend Poor by mouth intake Weight loss - Previously was on tube feeds. - On Megace - Now patient is able to have by mouth intake. As per staff adequate by mouth intake. Possible neuroleptic malignant syndrome, with positive muscle rigidity, elevated total creatine kinase and CK, tachycardia, and catatonia. - Discussed with Dr. Marie - likely not NMS. - No appreciable muscle rigidity or tremors noted. - Monitor closely Constipation - Bowel regimen MiraLAX daily, fleets enema when necessary, bisacodyl when necessary DVT prophylaxis: encourage ambulation. Discussed with patient, nursing, Mary Porter Dec 22, 2016 14:33
--- NOTE | 2016-12-22 14:35 | HHI.PYPN ---
Subjective Remarks Patient was seen and case discussed with nursing. Patient is more talkative interacting with other staff members. When I approach she looks at me and becomes anxious and reserved. She does answer to her name and earlier in the day there was a computer in the hallway and per nursing she was able to type her name in it. She was given a piece of paper and wrote her name, bennie a stick figure and wrote her favorite color, teal Objective Alert: Yes [place]: Person Mood: Anxious Affect: Flat Memory Intact: Comment (Not formally assessed) Hallucinations: Other (appears somewhat internally preoccupied) Delusions: No Delusion Type: Other (no angelique delusions) Suicidal: Ideation (no SI) Homicidal: Ideation (no HI) Insight/Judgment Poor Vitals/IOs Vital Signs Date Time Temp Pulse Resp B/P Pulse Ox O2 Delivery O2 Flow Rate FiO2 12/22/16 06:18 97.6 101 18 108/71 98 Intake and Output 12/21/16 12/21/16 12/22/16 08:00 16:00 00:00 Intake Total 360 ml Balance 360 ml Assessment & Plan Problem List: (1) Unspecified psychosis ICD Code: F29 (2) Catatonia ICD Code: F06.1 Assessment & Plan Continue current treatment plan Justification for Cont. Inpt. Patient will decompensate in a less restrictive setting Request HC Surrog/Guard Advoc?: Yes Durga Goss DO Dec 22, 2016 14:35
[2016-12-22 18:00] VITALS: BP 91/55; PULSE 113; RESP 18; TEMP 98; O2SAT 97
[2016-12-22] MEDS: CYCLOBENZAPRINE HCL 10 MG TAB PO PRN (21:51)
[2016-12-23] MEDS: LORazepam 2 MG TAB PO SCH ×5 (04:20→20:15)
[2016-12-23 05:48] VITALS: BP 98/62; PULSE 116; RESP 18; TEMP 98.8; O2SAT 98
[2016-12-23] MEDS: METOPROLOL TARTRATE 50 MG TAB PO SCH ×2 (08:12→20:15)
[2016-12-23] MEDS: DOCUSATE SODIUM 100 MG/10 ML UDC PO SCH ×2 (08:14→20:15)
[2016-12-23] MEDS: POLYETHYLENE GLYCOL 17 GM PKG PO SCH (08:14)
[2016-12-23] MEDS: MEMANTINE HCL 10 MG TAB PO SCH ×2 (08:14→20:14)
[2016-12-23] MEDS: MEGESTROL ACETATE SUSP 400 MG/10 ML CUP PO SCH (08:14)
[2016-12-23] MEDS: OLANZapine 10 MG TAB PO SCH (08:14)
[2016-12-23 08:29] VITALS: BP 122/76; PULSE 104
--- NOTE | 2016-12-23 14:09 | HHI.PYPN ---
Subjective Remarks Patient was seen and case discussed with nursing. Patient is less interactive than yesterday. She remains shy around me. Per nursing she does get up for lunch. She was able to tell me her name is Marcella and said by when I left. Compliant with medications and behaving well on the unit Objective Alert: Yes [place]: Person Mood: Anxious Affect: Blunted Memory Intact: Comment (Not formally assessed) Hallucinations: Other (appears somewhat internally preoccupied) Delusions: No Delusion Type: Other (no angelique delusions) Suicidal: Ideation (no SI) Homicidal: Ideation (no HI) Insight/Judgment Poor Vitals/IOs Vital Signs Date Time Temp Pulse Resp B/P Pulse Ox O2 Delivery O2 Flow Rate FiO2 12/23/16 08:29 104 122/76 12/23/16 05:48 98.8 18 98 Intake and Output 12/22/16 12/22/16 12/23/16 08:00 16:00 00:00 Intake Total 300 ml Balance 300 ml Assessment & Plan Problem List: (1) Unspecified psychosis ICD Code: F29 (2) Catatonia ICD Code: F06.1 Assessment & Plan Continue current treatment plan Justification for Cont. Inpt. Patient will decompensate in a less restrictive setting Request HC Surrog/Guard Advoc?: Yes Durga Goss DO Dec 23, 2016 14:09
[2016-12-23 15:41] VITALS: BP 117/88; PULSE 145; RESP 18; TEMP 97.2; O2SAT 97
[2016-12-23 20:00] VITALS: BP 110/70; PULSE 110
[2016-12-23] MEDS: CYCLOBENZAPRINE HCL 10 MG TAB PO PRN (20:15)
[2016-12-24] MEDS: LORazepam 2 MG TAB PO SCH ×5 (00:07→16:54)
[2016-12-24 06:23] VITALS: BP 94/69; PULSE 101; RESP 18; TEMP 98.4; O2SAT 95
[2016-12-24] MEDS: METOPROLOL TARTRATE 50 MG TAB PO SCH (09:15)
[2016-12-24] MEDS: DOCUSATE SODIUM 100 MG/10 ML UDC PO SCH (09:15)
[2016-12-24] MEDS: MEMANTINE HCL 10 MG TAB PO SCH (09:16)
[2016-12-24] MEDS: OLANZapine 10 MG TAB PO SCH (09:16)
[2016-12-24] MEDS: POLYETHYLENE GLYCOL 17 GM PKG PO SCH (09:16)
[2016-12-24] MEDS: MEGESTROL ACETATE SUSP 400 MG/10 ML CUP PO SCH (09:16)
--- NOTE | 2016-12-24 11:36 | HHI.PR ---
Subjective Remarks Follow-up visit catatonia, bilateral ankle swelling. Patient seen and examined today. Hypoverbal. Mimics words and actions. Continue to do toe walking secondary to Achilles tendon shortening. AFO on right leg present. Appears comfortable. Objective Vitals Vital Signs Date Time Temp Pulse Resp B/P Pulse Ox O2 Delivery O2 Flow Rate FiO2 12/24/16 06:23 98.4 101 18 94/69 95 12/23/16 20:00 110 110/70 12/23/16 15:41 97.2 145 18 117/88 97 I/O 12/23/16 12/23/16 12/23/16 12/24/16 12/24/16 12/24/16 07:00 15:00 23:00 07:00 15:00 23:00 Intake Total 870 ml Output Total 2 ml Balance 868 ml Intake Oral 870 ml Output Urine Total 2 ml # Voids 1 Imaging Last Impressions Ankle X-Ray 12/14/16 0000 Signed Impressions: Service Date/Time: Wednesday, December 14, 2016 11:26 - CONCLUSION: 1. Mild soft tissue swelling along the medial and anterior ankle without evidence for radiopaque foreign bodies or subcutaneous emphysema. 2. No acute fracture or dislocation. Desmond Blevins MD Chest X-Ray 12/10/16 0000 Signed Impressions: Service Date/Time: Saturday, December 10, 2016 10:25 - CONCLUSION: 1. No acute cardiopulmonary findings. Bi Berg MD Abdomen X-Ray 11/27/16 0000 Signed Impressions: Service Date/Time: Sunday, November 27, 2016 13:47 - CONCLUSION: No acute abdominal abnormality is identified. Ravi Arriola MD Chest CT 11/15/16 0000 Signed Impressions: Service Date/Time: November 11:20 - CONCLUSION: 1. Unremarkable CT chest. 2. No infiltrate or mass. Prieto Rock MD Abdomen/Pelvis CT 11/15/16 0000 Signed Impressions: Service Date/Time: November 11:13 - CONCLUSION: Normal examination. Rolando Nuñez MD Lumbar Puncture Fluoroscopy 11/14/16 0000 Signed Impressions: Service Date/Time: November 10:46 - CONCLUSION: Uncomplicated fluoroscopically guided lumbar puncture. Florencio Leslie MD Brain MRI 11/09/16 0000 Signed Impressions: Service Date/Time: Wednesday, November 09, 2016 13:26 - CONCLUSION: 1. Small amount of fluid within the sphenoid sinus. The examination is otherwise unremarkable. Bi Berg MD Head CT 11/08/16 0000 Signed Impressions: Service Date/Time: November 18:15 - CONCLUSION: Normal examination. Ravi Ace MD Lower Extremity Ultrasound 11/07/16 0000 Signed Impressions: Service Date/Time: Monday, November 07, 2016 10:57 - CONCLUSION: No evidence of deep venous thrombosis within the lower extremities. Philippe Menendez MD Objective Remarks GENERAL: Pt. is a well-developed patient, NAD. Awake. SKIN: Facial acne, no ecchymoses or lesions. Warm and dry. HEAD: Atraumatic. Normocephalic. EOMI. CARDIOVASCULAR: Tachycardia without murmurs, gallops, or rubs. RESPIRATORY: CTA. Breath sounds equal bilaterally. No wheezes, rales, or rhonchi. GASTROINTESTINAL: Abdomen soft, nondistended. Bowel sounds hypoactive. Voiding without difficulty. MUSCULOSKELETAL: Extremities without clubbing, cyanosis, or edema. NEUROLOGICAL: Awake and alert. No rigidity but slow bradykinetic movements noted. Hypoverbal responds to some questions and commands. Mimics. Moves all extremities. Procedures 11/15/16 Lumbar Puncture 11/16/16 Dobhoff placement A/P Problem List: (1) Schizophrenia, paranoid type ICD Code: F20.0 Status: Acute (2) Unspecified psychosis ICD Code: F29 Status: Acute (3) Tachycardia ICD Code: R00.0 Status: Acute (4) Hypokalemia ICD Code: E87.6 Status: Resolved Assessment and Plan Patient is a 21-year-old white female with no known primary medical history who came in to the hospital from [facility] under [place] act secondary to being belligerent at home, acting out raking things and making suicidal statements. As per record, questionable smoking K2 as per nursing staff at [facility]. The patient also refused to give urine specimen for test. 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 Patient is now admitted to inpatient psychiatry unit for further evaluation. Consulted for medical management, tachycardia. Right ankle pain/swelling/redness Bilateral feet in plantar flexion BLE pain/discomfort - Bilateral US to r/o DVT negative - Ankle x-ray showed mild soft tissue swelling along the medial and anterior ankle without evidence for radiopaque foreign-bodies or subcutaneous emphysema. No acute fracture or dislocation. - Leg elevation while at rest. Ronnie use. - Podiatry consulted. Bilateral equinus, left greater than the right. Recommended continued physical therapy and bracing night splints, with Achilles tendon stretching. - May use acewraps at night for splinting, brace not available for now - Toe walking, AFO brace. Reconsult physical therapy Psychosis, paranoid schizophrenia - Management by psychiatry team - CT scan and neurology consult requested by primary team - r/o organic cause of AMS ? - CT scan normal - seen in consultation by Neurology - MRI brain normal, EEG normal. LP. Follow-up results - ESR and CRP within normal, RPR and HIV within normal. - Neurology consulted input appreciated. CSF normal, encephalitis antibodies may take 2-3 weeks for results. As per neuro, consider per psychiatric presentation. - Lumbar puncture. Results within normal - CT of the abdomen and pelvis normal examination - CT of the chest unremarkable CT chest. No infiltrate or mass. - As per staff, psychiatrist spoke with father for possible ECT treatment. Family agreeable. Patient approved by [place] court automation and controls manager for ECT treatment. Patient has been presented to 3 facilities and declined by 2. Currently on the waiting list to [facility]. - Medication adjustment from psychiatry continues for psych management. - Medication adjustment done by psychiatry has improved patient's condition slowly. Now communicates more and participates with psych treatment activity. Tachycardia - Most likely related to paranoia and anxiety - elevated HR may be due in part to dehydration given poor po intake, encourage fluids/increased po intake. Ensure shakes. - TSH WNL. - On and off IV fluids. - Patient previously was on propranolol but now switched over to metoprolol 50 mg twice a day. BP decrease with metoprolol 50 mg. - Change metoprolol to 25 mg 3 times a day. - Monitor trend Poor by mouth intake Weight loss - Previously was on tube feeds. - On Megace - Now patient is able to have by mouth intake. As per staff adequate by mouth intake. Possible neuroleptic malignant syndrome, with positive muscle rigidity, elevated total creatine kinase and CK, tachycardia, and catatonia. - Discussed with Dr. Marie - likely not NMS. - No appreciable muscle rigidity or tremors noted. - Monitor closely Constipation - Bowel regimen MiraLAX daily, fleets enema when necessary, bisacodyl when necessary - Lactulose 1 dose today DVT prophylaxis: encourage ambulation. Discussed with patient, nursing, Mary Porter Dec 24, 2016 11:36
[2016-12-24] MEDS ORDERED: LACTULOSE SYRUP 20 GM/30 ML CUP PO ONE (11:45)
--- NOTE | 2016-12-24 12:02 | PD.TTN ---
Present for Treatment Team Treatment Team Staff: Provider (Dr. Roman), Nurse (Pepe), Psych Therapist ( Carmen), Occupational Therapist (Niecy) Patient Problems 1. Discharge planning 2. Medication compliance 3. Knowledge deficit 4. Lack of coping skills Progress Toward Goals Provider Input: Patient has been cooperative and medication complaint. pt has no changes and is on one to one Nurse Input: patient is cooperative and compliant. Patient is unstable in walking but overall at baseline. Psych Therapist Input: Patient is observed to be laying in bed and cooperative. Pt. is nonverbal but is able to pay attention appropriatelyl. Carmen [facility] Dec 24, 2016 12:02
[2016-12-24] MEDS ORDERED: METOPROLOL TARTRATE 25 MG TAB PO SCH (13:00)
[2016-12-24 14:41] VITALS: BP 113/76; PULSE 126
[2016-12-24] MEDS ORDERED: OLAN20TA PO (14:54)
[2016-12-24] MEDS ORDERED: MEGE40SU PO (14:54)
[2016-12-24] MEDS ORDERED: OLAN5TAB PO (14:54)
[2016-12-24] MEDS ORDERED: NAME10TA PO (14:54)
[2016-12-24] MEDS ORDERED: METO25TA3 PO (14:54)
[2016-12-24] MEDS ORDERED: DOCU100S PO (14:54)
[2016-12-24] MEDS ORDERED: LORA-475 PO (14:54)
[2016-12-24] MEDS ORDERED: POLY17S PO (14:54)
--- NOTE | 2016-12-24 15:07 | HHI.DS ---
Psychiatry Discharge Summary Inpatient Psychiatric care?: Yes Advance Directive: No Reason Not Provided: HAS NONE Mental Health AdvanceDirective: No Health Care Proxy: No Admission Admission Date Oct 28, 2016 at 14:05 Admission Diagnosis: (1) Catatonia ICD Code: F06.1 (2) Unspecified psychosis ICD Code: F29 Brief History [address] Dr. Colin's H&P: This is a 21-year-old female who is grossly psychotic and a very poor historian. Apparently she was transferred here from [facility] under a [place] Torre act. She can provide this physician with no information regarding her recent history and when approached, the patient is holding a Bible and stating that she is paranoid she will be strangled. 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 Patient also demonstrates looseness of associations, thought blocking, and is obviously responding to internal stimuli. She is not felt to be competent to make medical or psychiatry decisions regarding her own care. This physician asked social media marketing analyst to call the patient's mother and social media marketing analyst has left voice mails but mother has not returned call. The patient did refer to a man in her life as both her boyfriend and and that she needs to go back to him but this is unverified able. She is reclusive on the unit and is not speaking to other patients. Toxicology screen is reportedly negative. On my examination today: Patient seen and examined with counselor and nurse. Chart reviewed. Case discussed in treatment team with counselor and nurse. On my examination today, patient presents as very fearful and internally preoccupied. She is malodorous and disheveled. The patient reports that she is on her menses and so is "reborn." She reports that she has been sleeping quite poorly for the last several weeks and feels "real confused." She does articulate a belief that she is somehow being controlled by another person but says, "I don't wanna talk about it; they just turn things around." Affect is labile. She is non- committal regarding SI/HI. She denies AVH but appears internally preoccupied as I said. She admits that she has been under a lot of stress because of studying for finals. Psychiatric interview is somewhat limited because of patient's degree of psychiatric impairment at present. Past psychiatric history: Patient is likely an unreliable historian but denies any history of psychiatric illness. Family history: Patient reports that her mother has issues with being "explosive " but denies any other family psychiatric history. Chemical dependency history: Patient denies any abuse of drugs or alcohol. 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 She is single with no children. She works part-time at [employer]. Social history is limited because of patient's degree of psychiatric impairment. I have obtained collateral from patient's father, Ravi Singer, over the phone at [phone]: He notes that the patient has no prior psychiatric history and was in her usual state of health until about 2 weeks ago when she began crying at night for no reason. She notes that she broke up with her boyfriend about one week ago. She began "talking strange" and so family called the police and had her De La Torre acted and sent to [facility]. She was reportedly started on Zyprexa Zydis but this made the patient more confused reportedly. She was subsequently discharged from [facility] but has once again decompensated. Father notes that patient's mother carries a diagnosis of schizophrenia as well as patient's brother. Brother is reportedly on Zyprexa. Mother is not presently on antipsychotic therapy. Father does not patient is using suspect the patient is abusing substances. I discussed patient's differential diagnosis and treatment plan, and father is in agreement with the plan as presumptive healthcare surrogate. He thanks me for the call. 11/27/16 Patient seen in day room chart reviewed. Patient continues initial catatonic features is markedly selectively mute with me shows significant psychomotor retardation though staff states at times she is somewhat more verbal with them. Dr. Mc and signed first opinion petition requesting ECT. I agree I feel patient is quite psychotic with marked psychomotor retardation and catatonia. Thus I will cosign second opinion petition supporting request for ECT Tobacco Use In Past 30 Days: Refused To Answer Alcohol Use: Never Hospital Course Patient's initial catatonia showed some improvement with benzodiazepine, she did spend extended time on our [facility] unit following her medical condition. She did improve to the point where she was showing good oral intake she was selectively verbal with some of her peers and staff and I will some of the older male staff or physician. She was able to ambulate independently with assistance she was somewhat of a fall risk. Visit opinion of Dr. Mc who care for her depressive significant part of his stay that ECT would be the most beneficial treatment for this young woman. However given unable to arrange that due to patient's insurance denying us. We have talked with the patient's father. He has history of treating mentally ill people in his home both his and some of his children. He feels after 2 months he would like his daughter at home to monitor the medications and see if the home environment may help her. I discussed this with Dr. Mc who agrees that it appears the patient is better maximum benefit of this inpatient stay. And since we are unable to arrange ECT treatment due to her insurance companies refusal to pay for what we feel is the appropriate treatment. Thus patient will be discharged today to her family with Rx 1 month referral to [facility]. Patient continues on scheduled Ativan to be given a 10 day supply of this. At 2 mg every 6 hours #40. The family will have to discuss with [facility] how to handle this or perhaps discuss it with her family practice physician Results Blood Pressure 113 / 76 Vital Signs Date Time Temp Pulse Resp B/P Pulse Ox O2 Delivery O2 Flow Rate FiO2 12/24/16 06:23 98.4 101 18 94/69 95 Please see EMR for full lab results Summary of Procedures None done Imaging Last Impressions Ankle X-Ray 12/14/16 0000 Signed Impressions: Service Date/Time: Wednesday, December 14, 2016 11:26 - CONCLUSION: 1. Mild soft tissue swelling along the medial and anterior ankle without evidence for radiopaque foreign bodies or subcutaneous emphysema. 2. No acute fracture or dislocation. Desmond Blevins MD Chest X-Ray 12/10/16 0000 Signed Impressions: Service Date/Time: Saturday, December 10, 2016 10:25 - CONCLUSION: 1. No acute cardiopulmonary findings. Bi Berg MD Abdomen X-Ray 11/27/16 0000 Signed Impressions: Service Date/Time: Sunday, November 27, 2016 13:47 - CONCLUSION: No acute abdominal abnormality is identified. Ravi Arriola MD Chest CT 11/15/16 0000 Signed Impressions: Service Date/Time: November 11:20 - CONCLUSION: 1. Unremarkable CT chest. 2. No infiltrate or mass. Prieto Rock MD Abdomen/Pelvis CT 11/15/16 0000 Signed Impressions: Service Date/Time: November 11:13 - CONCLUSION: Normal examination. Rolando Nuñez MD Lumbar Puncture Fluoroscopy 11/14/16 0000 Signed Impressions: Service Date/Time: November 10:46 - CONCLUSION: Uncomplicated fluoroscopically guided lumbar puncture. Florencio Leslie MD Brain MRI 11/09/16 Signed Impressions: Service Date/Time: Wednesday, November 09, 2016 13:26 - CONCLUSION: 1. Small amount of fluid within the sphenoid sinus. The examination is otherwise unremarkable. Bi Berg MD Head CT 11/08/16 0000 Signed Impressions: Service Date/Time: November 18:15 - CONCLUSION: Normal examination. Ravi Ace MD Lower Extremity Ultrasound 11/07/16 Signed Impressions: Service Date/Time: Monday, November 07, 2016 10:57 - CONCLUSION: No evidence of deep venous thrombosis within the lower extremities. Philippe Menendez MD Pending results at discharge: No Medications # of Antipsychotic meds at D/C: 1 Approp Antipsych med options 1 - Minimum of three failed multiple trials of monotherapy. 2 - Documented plan to taper to monotherapy due to previous use of multiple meds OR cross-taper in progress at D/C. 3 - Documentation of augmentation of Clozapine. 4 - Justification other than those listed in allowable values 1-3, document here : Discharge Discharge Date: Dec 24, 2016 Discharge Diagnosis: (1) Catatonia Diagnosis: Principal ICD Code: F06.1 (2) Unspecified psychosis Diagnosis: Principal ICD Code: F29 Mental Status Exam at Disch Alert selectively mute white female appears stated age she continues with selective mutism, though her appetite is improved she walks with a guarded gait more on her toes though she now has braces to walk more heel toe. A mood is restricted affect shows decreased range and intensity patient is selectively mute, though she is able converse with. Then auditory or visual hallucinations noted she showing marked vigilance and sent judgment is very poor cognition appears somewhat impaired Pt Condition on Discharge: Fair Discharge Disposition: Discharge Home Discharge Instructions Diet Instructions: As Tolerated, No Restrictions Activities you can perform: Regular-No Restrictions Scheduled Appointment: [facility] Discharge Time > 30 minutes Discharge/Advance Care Plan Health Problems: (1) Unspecified psychosis (2) Catatonia Goals to promote your health * To prevent worsening of your condition and complications * To maintain your health at the optimal level Directions to meet your goals Take your medications as prescribed Follow your dietary instruction Follow activity as directed Keep your appointments as scheduled Take your immunizations and boosters as scheduled If your symptoms worsen call your PCP, if no PCP go to Urgent Care Center or Emergency Room For 28/01 questions related to your inpatient stay or results of tests pending at discharge, please contact Dr. Ravi Roman at Smoking is Dangerous to Your Health. Avoid second hand smoking Ravi Roman MD Dec 24, 2016 15:07
== END 2016-12-24 17:30 | disposition home or self-care (01) | DRG 885 ==
LOC: H260 14:05 → H270 10-29 18:08 → H4EA 11-01 12:20 → H250 11-08 17:54 → H4EA 11-12 19:20 → H250 11-20 17:28 → H4EA 11-27 21:17 → H260 12-18 16:40
PROVIDERS: ADMIT Psychiatry & Neurology Psychiatry; ATTEND Psychiatry & Neurology Psychiatry
PROC: 009U3ZX Drainage of Spinal Canal, Percutaneous Approach, Diagnostic (ICD-10-PCS; principal; 2016-11-15)
PROC: 0DH63UZ Insertion of Feeding Device into Stomach, Percutaneous Approach (ICD-10-PCS; 2016-11-16)
DX: F23 Brief psychotic disorder (principal); F94.0 Selective mutism; G21.19 Other drug induced secondary parkinsonism; E46 Unspecified protein-calorie malnutrition; Z91.14 Patient's other noncompliance with medication regimen; Z81.8 Family history of other mental and behavioral disorders; R00.0 Tachycardia, unspecified; R60.9 Edema, unspecified; E87.6 Hypokalemia; E86.0 Dehydration; H61.22 Impacted cerumen, left ear; H66.93 Otitis media, unspecified, bilateral; K59.00 Constipation, unspecified
CPT/HCPCS: 62270; 70450; 70553; 71020; 71260; 73610; 74000; 74177; 76937; 77003; 80048; 80053; 80076; 81001; 82140; 82550; 82552; 82607; 82945; 82948; 83735; 84100; 84132; 84134; 84157; 84439; 84443; 84481; 84702; 84703; 85025; 85610; 85652; 85730; 86140; 86403; 86592; 86703; 87015; 87070; 87116; 87205; 87206; 89051; 93005; 93970; 95819; A9579; J1200; J2060; J2405; J3486; J7030; J7042; L1960; Q0163; Q9967

== ENCOUNTER 2017-12-21 10:22 | Inpatient (IN) ==
[2018-01-05] MEDS ORDERED: Aluminum/Magnesium/Simethacone Susp 30 ML UDC PO PRN (08:55)
[2018-01-05] MEDS ORDERED: LORazepam 0.5 MG Tablet PO PRN (09:02)
--- NOTE | 2018-01-05 16:07 | P.PNPSY ---
Subjective Remarks: Patient was seen and case discussed with nursing. Patient remains floridly psychotic. Per nursing, she was very tearful and labile. Bizarre behavior walking on her tippy toes. During the interview she is laughing stimuli. Though she is able to follow the basic questions. Is compliant with her medications. Has not had any outbursts Mental Status Examination Appearance: Disheveled Consciousness: Clouded Orientation: Person Motor Activity: Normal gait Speech: Hesitant, Slow Language: Perseveration Fund of Knowledge: Inadequate Attention and Concentration: Easily distracted Memory: Impaired Mood: Appropriate Affect: Labile Thought Process & Associations: Loose associations Thought Content: Bizarre thinking, Hallucinations, Depersonalization Hallucination Type: Auditory (Likely responding) Delusion Type: Bizarre Suicidal Ideation: No Suicidal Plan: No Suicidal Intention: No Homicidal Ideation: No Homicidal Plan: No Homicidal Intention: No Assessment and Plan - Assessment (1) Bipolar disorder, current episode manic without psychotic features Code(s): F31.10 - Bipolar disorder, current episode manic without psychotic features, unspecified Status: Acute - Plan Plan: Estimated LOS: [] days Continue current treatment plan Justification for Continued Inpatient Stay: Patient would decompensate in a less restrictive setting
--- NOTE | 2018-01-06 09:17 | P.PNPSY ---
Subjective Remarks: Patient seen and examined with nurse. Chart reviewed. Case discussed with nursing staff. Per nursing, patient noted to be more psychotic today versus before the weekend. She was banging on the window earlier in her frantic manner per nursing staff. Urine is noted to be somewhat malodorous. Nursing staff has also noted dependent edema in the patient's legs. On my examination today, the patient is sitting in the day area in a Felisha chair. She is indeed fairly disorganized and somewhat anxious. She has the newspaper in front of her and although she is able to read the headlines to me, she does not seem to be genuinely comprehending what she is reading. No reported side effects from medications. No physical complaints. Review of Systems unobtainable due to mental condition Mental Status Examination Appearance: Disheveled Consciousness: Alert Orientation: Person Motor Activity: Other (No motor abnormalities noted) Speech: Hesitant, Slow Language: Perseveration Fund of Knowledge: Inadequate Attention and Concentration: Easily distracted Memory: Impaired Mood: Appropriate Affect: Labile Thought Process & Associations: Loose associations, Disorganized Thought Content: Bizarre thinking Hallucination Type: Other (Appears somewhat internally stimulated) Delusion Type: Bizarre Suicidal Ideation: No Suicidal Plan: No Suicidal Intention: No Homicidal Ideation: No Homicidal Plan: No Homicidal Intention: No Insight: Poor Judgment: Poor Mental Status Exam Remarks: Lower extremity nonpitting edema noted. No tenderness to palpation. No palpable cord. Assessment and Plan - Assessment (1) Bipolar disorder, current episode manic without psychotic features Code(s): F31.10 - Bipolar disorder, current episode manic without psychotic features, unspecified Status: Acute - Plan Plan: [place] can be a cause of edema as well as delirium, which may account for patient's worsen mental status today. I will hold lithium and check lower extremity Doppler and consult the hospitalist for further evaluation. I will also check a UA as well as an updated set of basic laboratories. Continue Abilify as ordered for now. I will have the patient transferred to the medical psychiatric unit. Continue other care as ordered. Justification for Continued Inpatient Stay: Medication changes. Complicating condition. Impairment in reality construction. High risk for decompensation in less restrictive environment. Discharge Planning: Pending psychiatric stabilization
[2018-01-06] MEDS: Nystatin 100,000 UNITS/GM Powder 15 GM Bottle TOPICAL SCH ×3 (09:52→22:35)
[2018-01-06 16:36] LABS: Baso % (Auto) 0.5 % (0.0-2.0); Eos # (Auto) 0.1 th/mm3 (0.0-0.4); Eos % (Auto) 0.5 % (0.0-4.0); Hematocrit 41.3 % (35.0-46.0); Hemoglobin 13.8 gm/dL (11.6-15.3); Lymph # (Auto) 2.1 th/mm3 (1.0-4.8); Lymph % (Auto) 20.6 % (9.0-44.0); Mean Corpuscular HGB Conc 33.5 % (32.0-36.0); Mean Corpuscular Hemoglobin 31.2 pg (27.0-34.0); Mean Corpuscular Volume 93.1 fL (80.0-100.0); Mean Platelet Volume 8.2 fL (7.0-11.0); Mono # (Auto) 0.9 th/mm3 (0.0-0.9); Neut # (Auto) 7.1 th/mm3 (1.8-7.7); Neut % (Auto) 69.4 % (16.0-70.0); Platelet Count 295 th/mm3 (150-450); Red Blood Count 4.44 mil/mm3 (4.00-5.30); Red Cell Distribution Width 13.1 % (11.6-17.2); White Blood Count 10.2 th/mm3 (4.0-11.0)
[2018-01-06 16:43] LABS: Alanine Aminotransferase 39 U/L (10-53); Albumin 4.1 g/dL (3.4-5.0); Anion Gap 12 meq/L (5-15); Aspartate Aminotransferase 25 U/L (15-37); Blood Urea Nitrogen 13 mg/dL (7-18); Calcium 8.8 mg/dL (8.5-10.1); Carbon Dioxide 22.8 meq/L (21.0-32.0); Chloride 109 meq/L (98-107); Glomerular Filtration Rate Greater Than 89 mL/min (>89); Glucose,Random 83 mg/dL (74-106); Potassium 3.7 meq/L (3.5-5.1); Sodium 144 meq/L (136-145)
[2018-01-06 16:52] LABS: Alkaline Phosphatase 99 U/L (45-117); Total Protein 7.2 g/dL (6.4-8.2)
--- NOTE | 2018-01-06 17:13 | P.PNPSY ---
Labs reviewed: Laboratory Results - last 12 hr 01/06/18 01/06/18 01/06/18 16:03 16:03 16:03 WBC 10.2 RBC 4.44 Hgb 13.8 Hct 41.3 MCV 93.1 MCH 31.2 MCHC 33.5 RDW 13.1 Plt Count 295 MPV 8.2 Neut % (Auto) 69.4 Lymph % (Auto) 20.6 [place] % (Auto) 9.0 H Eos % (Auto) 0.5 Baso % (Auto) 0.5 Neut # (Auto) 7.1 Lymph # (Auto) 2.1 [place] # (Auto) 0.9 Eos # (Auto) 0.1 Baso # (Auto) 0.0 WBC Differential . Differential Comment Auto diff final Sodium 144 Potassium 3.7 Chloride 109 H Carbon Dioxide 22.8 Anion Gap 12 BUN 13 Creatinine 0.71 Estimated GFR Greater than 89 Random Glucose 83 Calcium 8.8 Total Bilirubin 0.5 AST 25 ALT 39 Alkaline Phosphatase 99 Total Protein 7.2 Albumin 4.1 TSH 1.560 [place] 0.5 No clear lab abnormality to explain worsened mental status. Awaiting TRACY Weller, hospitalist consultation. I called to floor to ensure that patient will be transferred to med psych today.
[2018-01-06] MEDS: clonazePAM 1 MG Tablet PO SCH ×2 (22:30→22:36)
--- NOTE | 2018-01-07 08:27 | P.PNPSY ---
Subjective Remarks: Patient seen and examined. She is sitting in mele chair in hallway eating her breakfast. Chart reviewed. LE dopplers and UA not obtained yesterday, nor has hospitalist evaluated patient. Case discussed with nurse. I have instructed nurse to ensure that all of these orders are completed now. On my exam today, patient seems confused still. She is oriented to person. She is moving items around her breakfast tray. She is able to feed herself and open her packages of food (e.g. milk carton) appropriately. Affect is bright, and patient is grinning. She endorses AH saying "this country." No CAH. No delusions. No ongoing side effects from medications. No physical complaints. Vital Signs Temp Pulse BP Pulse Ox 01/06/18 15:35 98.8 F 98 H 118/77 98 Laboratory Results - last 24 hr 01/06/18 01/06/18 01/06/18 16:03 16:03 16:03 WBC 10.2 RBC 4.44 Hgb 13.8 Hct 41.3 MCV 93.1 MCH 31.2 MCHC 33.5 RDW 13.1 Plt Count 295 MPV 8.2 Neut % (Auto) 69.4 Lymph % (Auto) 20.6 [place] % (Auto) 9.0 H Eos % (Auto) 0.5 Baso % (Auto) 0.5 Neut # (Auto) 7.1 Lymph # (Auto) 2.1 [place] # (Auto) 0.9 Eos # (Auto) 0.1 Baso # (Auto) 0.0 WBC Differential . Differential Comment Auto diff final Sodium 144 Potassium 3.7 Chloride 109 H Carbon Dioxide 22.8 Anion Gap 12 BUN 13 Creatinine 0.71 Estimated GFR Greater than 89 Random Glucose 83 Calcium 8.8 Total Bilirubin 0.5 AST 25 ALT 39 Alkaline Phosphatase 99 Total Protein 7.2 Albumin 4.1 TSH 1.560 [place] 0.5 Labs reviewed. Review of Systems All other systems reviewed negative except as stated in HPI (limited by poor historian.) Mental Status Examination Appearance: Disheveled Consciousness: Alert Orientation: Person Motor Activity: Other (No abnormal motor movements noted) Speech: Hesitant (Remains hesitant), Slow Language: Other (Limited sample) Attention and Concentration: Easily distracted Mood: Appropriate Affect: Other (bright, smiling, not entirely appropriate to circumstance) Thought Process & Associations: Disorganized Thought Content: Bizarre thinking, Hallucinations Hallucination Type: Auditory (as above) Delusion Type: None Suicidal Ideation: No Suicidal Plan: No Suicidal Intention: No Homicidal Ideation: No Homicidal Plan: No Homicidal Intention: No Insight: Poor Judgment: Poor Assessment and Plan - Assessment (1) Bipolar disorder, current episode manic without psychotic features Code(s): F31.10 - Bipolar disorder, current episode manic without psychotic features, unspecified Status: Acute - Plan Plan: Continue to hold lithium. Mental status does seem a little better today, although patient remains fairly confused. Follow up outstanding studies [update : Lower extremity Dopplers negative for DVT] and hospitalist consultation. Continue other medications and care as ordered. Justification for Continued Inpatient Stay: Risk for decompensation in less restrictive environment. Impairment in reality construction. Discharge Planning: Pending psychiatric stabilization
[2018-01-07] MEDS: Nystatin 100,000 UNITS/GM Powder 15 GM Bottle TOPICAL SCH ×2 (08:52→21:10)
--- NOTE | 2018-01-07 14:48 | US ---
EXAM DATE: 01/07/2018 2:42 PM EDT AGE/SEX: 22 years / Female INDICATIONS: Bilateral leg swelling. CLINICAL DATA: This is the patient's subsequent encounter. Patient reports that signs and symptoms h ave been present for 1 day and indicates a pain score of 0/10. MEDICAL/SURGICAL HISTORY: . Schizophrenia. Bipolar disorder. None. COMPARISON: [facility] [place] BILATERAL VENOUS [place]OPPLER, 11/07/2016. . TECHNIQUE: Venous ultrasound of both lower extremities was performed from the inguinal ligament to t he proximal calf. Real-time, color Doppler and spectral tracing, compression and augmentation techni ques were used. FINDINGS: Right Leg: Normal compression of the deep venous system from the inguinal region to the proximal traci f. No echogenic clot is seen. Normal response of the venous system to augmentation and respiration. Left Leg: Normal compression of the deep venous system from the inguinal region to the proximal calf . No echogenic clot is seen. Normal response of the venous system to augmentation and respiration. Other: None. CONCLUSION: 1. The study is negative for bilateral lower extremity deep venous thrombosis. Electronically signed by: Prieto Rock MD 01/07/2018 2:47 PM EDT
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
--- NOTE | 2018-01-07 16:51 | XR ---
EXAM DATE: 01/07/2018 4:06 PM EDT AGE/SEX: 22 years / Female INDICATIONS: Abdominal pain. CLINICAL DATA: This is the patient's initial encounter. Patient reports that signs and symptoms have been present for 1 day and indicates a pain score of Nonresponsive. MEDICAL/SURGICAL HISTORY: Non-responsive. Non-responsive. COMPARISON: [facility] – [place], 11[place]27/2016. . FINDINGS: The abdominal bowel gas pattern is normal. No abnormal masses, calcifications, or organomegaly is s een. The osseous structures are unremarkable. CONCLUSION: No evidence of obstruction. Electronically signed by: Auguts Roach MD 01/07/2018 4:50 PM EDT
[2018-01-07] MEDS: clonazePAM 1 MG Tablet PO SCH (21:10)
--- NOTE | 2018-01-07 21:18 | ECG ---
Date Performed: 01/07/2018 Time Performed: 18:31:19 PTAGE: 22 years EKG: SINUS TACHYCARDIA WITH SHORT ME INTERVAL ABNORMAL RHYTHM ECG PREVIOUS TRACING : 01/01/2018 13.51 Since the previous tracing, no significant change noted DOCTOR: Ebony Frank Interpretating Date/Time 01/07/2018 21:18:26
--- NOTE | 2018-01-08 09:00 | P.PNPSY ---
Subjective Remarks: Patient seen and examined. Chart reviewed. Case discussed with nurse. On my exam, I find the patient in a mele-chair in the common area of the unit eating her breakfast. She is childlike and disorganized. She does follow simple commands but produces does not provide appropriate answers to questions. No SI or HI voiced. No obvious medication side effects. No evident physical distress. Vital Signs Temp Pulse Resp BP Pulse Ox 01/08/18 06:18 97.6 F 102 H 16 01/07/18 19:00 97.2 F L 115 H 18 121/79 98 Intake and Output 01/08/18 01/08/18 01/08/18 06:59 14:59 22:59 Intake Total 160 / 160 0 / 0 Output Total 3 / 3 Balance 157 / 157 0 / 0 Intake: Oral 160 / 160 0 / 0 Output: Urine 3 / 3 Impressions Abdomen X-Ray 01/07/18 00:00 CONCLUSION: No evidence of obstruction. Venous Doppler Study 01/07/18 00:00 CONCLUSION: 1. The study is negative for bilateral lower extremity deep venous thrombosis. Labs reviewed. Review of Systems unobtainable due to mental condition Mental Status Examination Appearance: Disheveled Consciousness: Alert Orientation: Person Motor Activity: Other (No motoric abnormalities noted) Speech: Incoherent Language: Other (Limited sample) Fund of Knowledge: Inadequate Attention and Concentration: Easily distracted Memory: Impaired Mood: Other (Calm) Affect: Other (Childlike, smiling) Thought Process & Associations: Disorganized Thought Content: Hallucinations Hallucination Type: Other (Appears internally preoccupied) Delusion Type: Other (Difficult to assess given thought disorganization) Suicidal Ideation: No (No SI voiced) Homicidal Ideation: No (No HI voiced) Insight: Poor Judgment: Poor Assessment and Plan - Assessment (1) Bipolar affective disorder, currently manic, severe, with psychotic features Code(s): F31.2 - Bipolar disorder, current episode manic severe with psychotic features Status: Acute - Plan Plan: Patient remains disorganized, and presentation is beginning to more closely resemble that of her previous hospitalization. Abilify monotherapy appears to be inadequate to stabilize patient's condition. I left a VM for patient's HCS to discuss pharmacotherapeutic next steps. I think a trial of a typical antipsychotic or clozapine should be considered. I will order a dietitian consultation as patient's oral intake appears to be growing somewhat more spotty in the setting of her thought disorganization. Hospitalist input noted and appreciated. As the patient has no active medical issues, I will order her transferred back to the general psychiatric unit as I feel she will obtain greater mobilization in that environment, and I hope to avoid significant deconditioning. Continue other medications and care as ordered. Justification for Continued Inpatient Stay: Impairment in reality construction. Impairment in self-care. High risk for decompensation in less restrictive environment. Discharge Planning: Pending psychiatric stabilization. [place] [address] tomorrow. Request Healthcare Surrogate/Guardian Advocate?: Yes
[2018-01-08] MEDS: Nystatin 100,000 UNITS/GM Powder 15 GM Bottle TOPICAL SCH ×2 (09:29→21:02)
--- NOTE | 2018-01-08 14:08 | P.PN ---
Subjective Interval history: Patient is seen sitting in Mele chair in hallway with nurse helping her eat breakfast. She is smiling however she remains internally focused. Answers questions monosyllabically or not at all. Does not appear distressed. Discussed patient condition with nurse and he reports no new concerns or developments overnight. No noted leg swelling. Physical Exam Vital signs: Vital Signs 01/07/18 19:00 01/08/18 06:18 Temperature 97.2 F L 97.6 F Pulse Rate 115 H 102 H Respiratory Rate 18 16 Blood Pressure 121/79 Pulse Oximetry 98 Intake & Output 01/07/18 01/08/18 01/08/18 18:59 06:59 18:59 Intake Total 480 / 480 500 / 500 0 / 0 Output Total 3 3 Balance 480 / 480 497 / 497 0 / 0 Intake: Oral 480 / 480 400 / 400 0 / 0 Oral Supplement 100 / 100 Output: Urine Narrative: GENERAL: This is a well-developed,well-nourished overweight female, in no acute distress. Sitting in mlee chair in the hallway. She appears confused. Smiling but internally focused. Follows simple commands. Minimal verbalization. SKIN: Warm and dry. No generalized rash. HEAD: Atraumatic. Normocephalic. EYES: Pupils equal and round. No scleral icterus. No injection or drainage. ENT: No nasal bleeding or discharge. Mucous membranes pink and moist. Airway patent. NECK: Trachea midline. CARDIOVASCULAR: Tachycardic, no murmur rubs or gallops. RESPIRATORY: No accessory muscle use. Clear to auscultation. Breath sounds equal bilaterally. GASTROINTESTINAL: Abdomen soft, nondistended. No tenderness to palpation. No guarding. Bowel sounds normal. MUSCULOSKELETAL: Extremities without clubbing, cyanosis, or edema. No appreciable edema bilateral lower extremities. NEUROLOGICAL: Awake. Oriented to self. Follows simple commands. No obvious cranial nerve deficits. Motor grossly within normal limits. Minimal monosyllabic answers to some questions, other questions she does not respond to it all. PSYCHIATRIC: Flat affect. Insight and judgment poor Results - Labs CBC & Chem 7: 01/06/18 16:03 01/06/18 16:03 - Imaging Impressions Abdomen X-Ray 01/07/18 00:00 CONCLUSION: No evidence of obstruction. Venous Doppler Study 01/07/18 00:00 CONCLUSION: 1. The study is negative for bilateral lower extremity deep venous thrombosis. Assessment and Plan - Plan This is a 21-year-old female with past medical history significant for schizophrenia, catatonic type, bipolar disorder, cannabis use disorder who was admitted to inpatient psychiatry secondary to mental decompensation with disorganized thought process, bizarre thinking and hyper religiosity after her schizophrenic medications were discontinued by her parents 2 months ago and who has since been admitted to [facility] for worsening mental status and bilateral lower extremity edema. Hospitalist services consulted for evaluation and management. Schizophrenia, catatonic type Bipolar disorder -Management per psychiatry Bilateral lower extremity edema No evidence of fluid overload on exam Doppler studies negative for DVT -Recommend leg elevation when possible Questionable abdominal pain, difficult to assess secondary to patient's poor response -Discussed with nursing staff, unsure of last BM -UA and KUB were negative -monitor Tachycardic Patient does not appear to have any chest pain complaints -EKG 01/01 sinus tach DVT prophylaxis -Patient is ambulatory Patient appears medically stable. Hospital service will sign off at this time; please reconsult if needed. Discussed Condition With: patient, nursing staff
[2018-01-08] MEDS: clonazePAM 1 MG Tablet PO SCH (20:52)
[2018-01-08] MEDS: LORazepam 1 MG Tablet PO PRN (23:08)
[2018-01-09] MEDS: LORazepam 1 MG Tablet PO PRN (04:54)
[2018-01-09] MEDS: Nystatin 100,000 UNITS/GM Powder 15 GM Bottle TOPICAL SCH ×2 (10:12→20:32)
--- NOTE | 2018-01-09 11:05 | P.PNPSY ---
Subjective Remarks: Patient seen and examined prior to [address]. Chart reviewed. Case discussed with nursing staff. On my exam, patient presents as childlike and disorganized. She smiles with a bland, somewhat vacant grin. Her verbalization is limited and nonsensical. She does not appear to be experiencing medication side effects, nor does she appear to be in physical distress. Patient's brother and HCS (now [place]) was present for court today. We discuss patient's medication regimen. I did discuss the possibility of starting a typical antipsychotic or clozapine, but brother prefers to return to Zyprexa. He notes that patient experienced significant weight gain with this agent but also experienced symptomatic improvement, and he thinks that that improvement is worth the potential for further weight gain. Patient's oral intake in the last few days has been poor, and a dietitian consultation is pending. Vital Signs Temp Pulse Resp BP Pulse Ox 01/09/18 05:16 97.8 F 90 17 149/67 H 98 01/08/18 18:16 98.2 F 74 16 152/77 H 97 Intake and Output 01/09/18 01/09/18 01/09/18 06:59 14:59 22:59 Other: Weight 81.4 kg Laboratory Results - last 24 hr 01/09/18 01/09/18 01/09/18 14:58 14:58 14:58 WBC 8.5 RBC 4.33 Hgb 13.3 Hct 39.8 MCV 92.0 MCH 30.7 MCHC 33.4 RDW 13.6 Plt Count 288 MPV 8.2 Neut % (Auto) 68.1 Lymph % (Auto) 22.3 [place] % (Auto) 8.5 H Eos % (Auto) 0.5 Baso % (Auto) 0.6 Neut # (Auto) 5.8 Lymph # (Auto) 1.9 [place] # (Auto) 0.7 Eos # (Auto) 0.0 Baso # (Auto) 0.1 WBC Differential . Differential Comment Auto diff final Sodium 145 Potassium 3.6 Chloride 110 H Carbon Dioxide 22.9 Anion Gap 12 BUN 9 Creatinine 0.64 Estimated GFR Greater than 89 Random Glucose 91 Calcium 9.0 Total Bilirubin 0.6 AST 27 ALT 39 Alkaline Phosphatase 107 B-Natriuretic Peptide 17 Total Protein 7.2 Albumin 4.2 Labs reviewed. CBC unremarkable. CMP unremarkable. BNP checked because of edema is wnl. Review of Systems unobtainable due to mental condition Mental Status Examination Appearance: Disheveled Consciousness: Alert Orientation: Person (seems to recognize name.) Motor Activity: Other (No motoric abnormalities noted) Speech: Incoherent Language: Other (Limited sample) Mood: Other (Difficult to assess due to thought disorganization) Affect: Other (Childlike, smiling) Thought Process & Associations: Disorganized Thought Content: Hallucinations Hallucination Type: Other (Continues to appear internally stimulated) Delusion Type: Other (Remains difficult to assess due to thought disorganization ) Suicidal Ideation: No (Difficult to assess due to thought disorganization, no SI voiced) Homicidal Ideation: No (Difficult to assess due to thought disorganization, no HI voiced) Insight: Poor Judgment: Poor Assessment and Plan - Assessment (1) Bipolar affective disorder, currently manic, severe, with psychotic features Code(s): F31.2 - Bipolar disorder, current episode manic severe with psychotic features Status: Acute - Plan Plan: Taper Abilify to 20mg daily and add Zyprexa Zydis 5mg qHS with plans for cross taper. Discontinue Klonopin as I do not believe this is adding anything to her regimen at this point. Hospitalist input noted and appreciated. I have reinforced for nursing staff the importance of keeping patient's legs elevated when she is seated or supine. I did place patient with a 1:1 for fall risk as she is somewhat unsteady on her feet. I will request PT assessment. Continue other medications and care as ordered. Patient's case was presented to the [place] [facility] and the patient was retained on the unit by the cook fry with brother to serve as guardian advocate. Justification for Continued Inpatient Stay: Medication changes. Impairment in reality construction. High risk for decompensation in less restrictive environment. Discharge Planning: Pending psychiatric stabilization Request Healthcare Surrogate/Guardian Advocate?: Yes
--- NOTE | 2018-01-09 13:59 | P.PN ---
Subjective Interval history: Reconsult for bilateral lower extremity edema. Patient seen and examined. Patient remains internally preoccupied is unable to provide any meaningful history. Per discussion with nursing staff, patient had increased swelling in her legs and feet with some associated redness. She is afebrile. Vital signs are stable. Of note, every time I have seen the patient on the floor she is in a chair with her legs in dependent position. Physical Exam Vital signs: Vital Signs 01/08/18 18:16 01/09/18 05:16 Temperature 98.2 F 97.8 F Pulse Rate 74 90 Respiratory Rate 16 17 Blood Pressure 152/77 H 149/67 H Pulse Oximetry 97 98 Intake & Output 01/08/18 01/09/18 01/09/18 18:59 06:59 18:59 Intake Total 0 / 0 Balance 0 / 0 Weight 81.4 kg Intake: Oral 0 / 0 Narrative: GENERAL: This is a well-developed,well-nourished overweight female, in no acute distress. Sitting in chair with legs dependent. She appears internally preoccupied. Smiling and laughing to herself. SKIN: Warm and dry. No generalized rash. HEAD: Atraumatic. Normocephalic. EYES: Pupils equal and round. No scleral icterus. No injection or drainage. ENT: No nasal bleeding or discharge. Mucous membranes pink and moist. Airway patent. NECK: Trachea midline. CARDIOVASCULAR: Tachycardic, no murmur rubs or gallops. RESPIRATORY: Nonlabored. Clear to auscultation. Breath sounds equal bilaterally. GASTROINTESTINAL: Abdomen soft, nondistended. No tenderness to palpation. No guarding. Bowel sounds normal. MUSCULOSKELETAL: Extremities without clubbing or cyanosis. Trace to 1+ pitting edema bilateral feet with some mild erythema noted over the top of left foot extending to outer aspect. +Mild erythema inner and outer aspect of right heel. NEUROLOGICAL: Awake. Oriented to self. Follows simple commands. No obvious cranial nerve deficits. Motor grossly within normal limits. Does not respond questions appropriately. Mumbling to herself incoherently. PSYCHIATRIC: Cheerful, smiling and laughing to herself. Internally preoccupied. Insight and judgment poor Results - Labs CBC & Chem 7: 01/09/18 14:58 01/09/18 14:58 Assessment and Plan - Plan This is a 21-year-old female with past medical history significant for schizophrenia, catatonic type, bipolar disorder, cannabis use disorder who was admitted to inpatient psychiatry secondary to mental decompensation with disorganized thought process, bizarre thinking and hyper religiosity after her schizophrenic medications were discontinued by her parents 2 months ago and who has since been admitted to [facility] for worsening mental status and bilateral lower extremity edema. Hospitalist services consulted for evaluation and management. Schizophrenia, catatonic type Bipolar disorder -Management per psychiatry Bilateral lower extremity edema Doppler studies negative for DVT Discussed with Dr. 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 Bilateral Edison wraps -please note it is important to wrap the patient's legs from the toes up to the knees. Questionable abdominal pain, resolved, workup negative -monitor Tachycardia Patient does not appear to have any chest pain complaints EKG shows sinus tach -We will obtain 2D echocardiogram as above DVT prophylaxis -Patient is ambulatory Thank you very kindly for this consultation. We will continue to follow patient along with you. Discussed Condition With: Dr. Khan, nursing staff and patient
[2018-01-09 15:16] LABS: Baso # (Auto) 0.1 th/mm3 (0.0-0.2); Baso % (Auto) 0.6 % (0.0-2.0); Eos % (Auto) 0.5 % (0.0-4.0); Hematocrit 39.8 % (35.0-46.0); Hemoglobin 13.3 gm/dL (11.6-15.3); Lymph # (Auto) 1.9 th/mm3 (1.0-4.8); Lymph % (Auto) 22.3 % (9.0-44.0); Mean Corpuscular HGB Conc 33.4 % (32.0-36.0); Mean Corpuscular Hemoglobin 30.7 pg (27.0-34.0); Mean Platelet Volume 8.2 fL (7.0-11.0); Mono # (Auto) 0.7 th/mm3 (0.0-0.9); Mono % (Auto) 8.5 % (0.0-8.0); Neut # (Auto) 5.8 th/mm3 (1.8-7.7); Neut % (Auto) 68.1 % (16.0-70.0); Platelet Count 288 th/mm3 (150-450); Red Blood Count 4.33 mil/mm3 (4.00-5.30); Red Cell Distribution Width 13.6 % (11.6-17.2); White Blood Count 8.5 th/mm3 (4.0-11.0)
[2018-01-09 15:33] LABS: Albumin 4.2 g/dL (3.4-5.0); Anion Gap 12 meq/L (5-15); Aspartate Aminotransferase 27 U/L (15-37); Blood Urea Nitrogen 9 mg/dL (7-18); Carbon Dioxide 22.9 meq/L (21.0-32.0); Chloride 110 meq/L (98-107); Glomerular Filtration Rate Greater Than 89 mL/min (>89); Glucose,Random 91 mg/dL (74-106); Potassium 3.6 meq/L (3.5-5.1); Sodium 145 meq/L (136-145)
[2018-01-09 15:35] LABS: Alanine Aminotransferase 39 U/L (10-53); Alkaline Phosphatase 107 U/L (45-117); Total Protein 7.2 g/dL (6.4-8.2)
--- NOTE | 2018-01-10 11:58 | P.PN ---
Subjective Interval history: Follow-up on patient by lower extremity edema. Patient seen and examined. Patient appears very restless today. She has a sitter at the bedside. She is mumbling incoherently and occasionally smiles and laughs to herself. Unable to obtain any discernible history. Discussed with sitter at bedside who states patient did not eat any breakfast and drank approximately 30 mL's. Physical Exam Vital signs: Vital Signs 01/10/18 06:09 Temperature 97.2 F L Pulse Rate 140 H Respiratory Rate 18 Blood Pressure 133/95 H Pulse Oximetry 98 Narrative: GENERAL: This is a well-developed,well-nourished overweight female, in no acute distress. Restless. Ambulating aimlessly around the room touching multiple objects. SKIN: Warm and dry. No generalized rash. HEENT: Atraumatic. Normocephalic. EOMI. No scleral icterus. No injection or drainage. No nasal bleeding or discharge. Dry mucus membranes. Airway patent. NECK: Trachea midline. CARDIOVASCULAR: Tachycardic, no murmur rubs or gallops. RESPIRATORY: Nonlabored. Clear to auscultation. Breath sounds equal bilaterally. GASTROINTESTINAL: Abdomen soft, nondistended. No tenderness to palpation. No guarding. Bowel sounds normal. MUSCULOSKELETAL: Extremities without clubbing or cyanosis. Edison wraps noted on BLEs. Trace to 1+ pitting edema bilateral feet with some mild erythema noted over the top of left foot extending to outer aspect. +Mild erythema inner and outer aspect of right heel. 7/6 Edison wraps removed, edema and erythema much improved. NEUROLOGICAL: Awake. Oriented to self. Follows simple commands. No obvious cranial nerve deficits. Motor grossly within normal limits. Does not respond to questions appropriately. Mumbling to herself incoherently. PSYCHIATRIC: Cheerful, smiling and laughing to herself. Internally preoccupied. Insight and judgment poor. Results - Labs CBC & Chem 7: 01/09/18 14:58 01/09/18 14:58 Laboratory Results - last 24 hr 01/09/18 01/09/18 01/09/18 14:58 14:58 14:58 WBC 8.5 RBC 4.33 Hgb 13.3 Hct 39.8 MCV 92.0 MCH 30.7 MCHC 33.4 RDW 13.6 Plt Count 288 MPV 8.2 Neut % (Auto) 68.1 Lymph % (Auto) 22.3 [place] % (Auto) 8.5 H Eos % (Auto) 0.5 Baso % (Auto) 0.6 Neut # (Auto) 5.8 Lymph # (Auto) 1.9 [place] # (Auto) 0.7 Eos # (Auto) 0.0 Baso # (Auto) 0.1 WBC Differential . Differential Comment Auto diff final Sodium 145 Potassium 3.6 Chloride 110 H Carbon Dioxide 22.9 Anion Gap 12 BUN 9 Creatinine 0.64 Estimated GFR Greater than 89 Random Glucose 91 Calcium 9.0 Total Bilirubin 0.6 AST 27 ALT 39 Alkaline Phosphatase 107 B-Natriuretic Peptide 17 Total Protein 7.2 Albumin 4.2 Assessment and Plan - Plan This is a 21-year-old female with past medical history significant for schizophrenia, catatonic type, bipolar disorder, cannabis use disorder who was admitted to inpatient psychiatry secondary to mental decompensation with disorganized thought process, bizarre thinking and hyper religiosity after her schizophrenic medications were discontinued by her parents 2 months ago and who has since been admitted to [facility] for worsening mental status and bilateral lower extremity edema. Hospitalist services consulted for evaluation and management. Schizophrenia, catatonic type Bipolar disorder 7/6 patient extremely restless today, poor p.o. intake, concern for rhabdomyolysis -Management per psychiatry -obtain CPK level Bilateral lower extremity edema, improved Doppler studies negative for DVT Discussed with Dr. 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 -Bilateral OKSANA hose -PT eval/tx -continue to monitor Tachycardia Patient does not appear to have any chest pain complaints EKG shows sinus tach / HR 140 -We will obtain 2D echocardiogram as above -Start propranolol -monitor HR DVT prophylaxis -Patient is ambulatory Discussed Condition With: patient, nursing staff
--- NOTE | 2018-01-10 11:59 | P.DIET ---
Nutritional Evaluation Type of nutrition evaluation: initial Nutrition consult regarding: Diet Evaluation Nutrition screening: Poor PO Intake, MDC Screening comments: [facility] [place] Poor PO Intake Subjective Barriers to Nutrition: Refuses to eat at times Subjective Comments: Pt visited in her room; Aria moyer, also in room. Pt w/0% po intake for breakfast this morning. Pt drinking a carton of milk during this visit. Pt was not able to provide any food preferences, other than to say "chocolate". Discussed starting a Calorie Count and providing chocolate milk and Ensure tid for this pt w/Dr Khan and w/DALILA Dickerson. Objective - Diagnosis Unspecified Psychosis - Indications of Malnutrition Characteristics: Insufficient energy intake - Objective % IBW: 147 Body Weight Used for Calculations: IBW Energy Needs - Lower Range (kCal/kg): 28 Energy Needs - Upper Range (kCal/kg): 33 Lower Limit kCal/kg (kCals): 1,591 Upper Limit kCal/kg (kCals): 1,874 Lower Limit Protein Factor (Grams per Kg): 1.4 Upper Limit Protein Factor (Grams per Kg): 1.6 Lower Protein Needs (Protein): 80 Upper Protein Needs (Protein): 91 Fluid Factor (ml/kg): 33 Estimated Fluid Needs (ml): 1,874 Dietitian Reviewed in Medical Record: Current diet, Curent medications, Intake & Output, Labs, Medical history Diet Order: Regular Oral Diet Intake Amount: Poor <50% Objective Comments: PMH: Schizophrenia-catatonic type, bipolar DO, Cannabis Use DO HgA1C 5.0 Meds Include: Abilify, Ativan, Zyprexa, Ambien Assessment Assessment: Pt is at nutritional risk r/t poor po intake. Pt w/variable po intake 0-75% this admission, often times refusing meals. Pt is not able to provide food preferences at this time. Calorie Count started today 01/10 through 01/12 w/ Nutrition Recs 01/13. Send chocolate milk, milk and Ensure tid(= 250 kcal and 9g Protein per serving). Recommendations: 1.Calorie Count started today 01/10 through 01/12 w/Nutrition Recs 01/13 2.Send chocolate milk, milk and Ensure tid(= 250 kcal and 9g Protein per serving ) Dietitian to Monitor: Lab values, Supplement acceptance, Intake & Output, Weight change, PO Intake
--- NOTE | 2018-01-10 12:23 | P.PNPSY ---
Subjective Remarks: Patient seen and examined with nurse. Chart reviewed. Case discussed with nursing staff. Case discussed in treatment team. Case also discussed with dietitian. On my examination today, the patient is somewhat more conversant. She is able to make her needs known to some degree and requests a carton of chocolate milk. When provided with the milk, she drinks this readily although she requires frequent reminders to do so as she is quite distractible. She is internally stimulated. She is a little hyperkinetic, and I note the hospitalist is checking a CK. No evident side effects from medications. No physical complaints. Vital Signs Temp Pulse Resp BP Pulse Ox 01/10/18 06:09 97.2 F L 140 H 18 133/95 H 98 Laboratory Results - last 24 hr 01/09/18 01/09/18 14:58 14:58 Sodium 145 Potassium 3.6 Chloride 110 H Carbon Dioxide 22.9 Anion Gap 12 BUN 9 Creatinine 0.64 Estimated GFR Greater than 89 Random Glucose 91 Calcium 9.0 Total Bilirubin 0.6 AST 27 ALT 39 Alkaline Phosphatase 107 B-Natriuretic Peptide 17 Total Protein 7.2 Albumin 4.2 Labs reviewed. Review of Systems unobtainable due to mental condition Mental Status Examination Appearance: Disheveled Consciousness: Alert Orientation: Person Motor Activity: Other (Somewhat hyperkinetic but no other motor abnormalities noted. No rigidity or other signs of NMS noted.) Speech: Other (A little more coherent today) Language: Other (rambling) Fund of Knowledge: Inadequate Attention and Concentration: Easily distracted Memory: Impaired Mood: Manic Affect: Other (Remains childlike, smiling) Thought Process & Associations: Disorganized Thought Content: Hallucinations Hallucination Type: Other (Remains internally stimulated) Delusion Type: Other (Difficult to assess due to thought disorganization) Suicidal Ideation: No (No SI voiced) Homicidal Ideation: No (No HI voiced) Insight: Poor Judgment: Poor Assessment and Plan - Assessment (1) Bipolar affective disorder, currently manic, severe, with psychotic features Code(s): F31.2 - Bipolar disorder, current episode manic severe with psychotic features Status: Acute - Plan Plan: Continue cross-taper from Abilify to Zyprexa: Zyprexa 10mg qHS and Abilify 15mg daily. Please consider titrating Zyprexa and tapering Abilify over weekend. Follow up echo and CK. Follow up dietitian recs. Hospitalist input noted and appreciated. Continue one-to-one for now. Continue other medications and care as ordered. Justification for Continued Inpatient Stay: Risk for decompensation in less restrictive environment. Impairment in reality construction. Impairment in self-care. Discharge Planning: Pending psychiatric stabilization Request Healthcare Surrogate/Guardian Advocate?: Yes
[2018-01-10 17:34] LABS: Calcium 9.2 mg/dL (8.5-10.1); Potassium 3.4 meq/L (3.5-5.1)
[2018-01-10 17:54] LABS: CKMB Percent 0.7 % (0.0-4.0); Creatine Kinase MB 5.4 ng/mL (0.5-3.6)
[2018-01-10] MEDS ORDERED: Propranolol 10 MG Tablet PO SCH (18:00)
[2018-01-10] MEDS: Nystatin 100,000 UNITS/GM Powder 15 GM Bottle TOPICAL SCH (22:11)
[2018-01-10] MEDS: OLANZapine 10 MG ODT Tablet PO SCH (22:13)
[2018-01-11] MEDS: Propranolol 10 MG Tablet PO SCH ×3 (09:08→17:22)
[2018-01-11] MEDS ORDERED: Sodium Chloride 0.45 % Inj 1,000 ML IV.SIG ONE (11:18)
--- NOTE | 2018-01-11 11:18 | P.PN ---
Subjective Interval history: Follow-up on patient with rhabdomyolysis, hypernatremia, lower extremity edema. Patient seen and examined. Patient witnessed ambulating aggressively in the unit. Hyperkinetic. Discussed with nursing staff, poor oral intake, need to move to [facility] for IV fluid treatment. Physical Exam Vital signs: Vital Signs 01/10/18 17:58 01/11/18 02:06 01/11/18 05:42 Temperature 100 F H Pulse Rate 84 147 H Respiratory Rate 20 18 20 Blood Pressure 160/83 H Pulse Oximetry 95 Intake & Output 01/10/18 01/11/18 01/11/18 18:59 06:59 18:59 Intake Total 900 / 900 920 / 920 Output Total 0 / 0 Balance 900 / 900 920 / 920 Intake: Oral 900 / 900 720 / 720 Oral Supplement 200 / 200 Output: Stool 0 / 0 Other: # Voids 3 2 Narrative: GENERAL: This is a well-developed,well-nourished overweight female, in no acute distress. Hyperkinetic. Witnessed ambulating vigorously in the unit. SKIN: Warm and dry. No generalized rash. HEENT: Atraumatic. Normocephalic. EOMI. No scleral icterus. No injection or drainage. No nasal bleeding or discharge. Dry mucus membranes. Airway patent. NECK: Trachea midline. CARDIOVASCULAR: Tachycardic, no murmur rubs or gallops. RESPIRATORY: Nonlabored. Clear to auscultation. Breath sounds equal bilaterally. GASTROINTESTINAL: Abdomen soft, nondistended. No tenderness to palpation. No guarding. Bowel sounds normal. MUSCULOSKELETAL: Extremities without clubbing or cyanosis. NEUROLOGICAL: Awake. Oriented to self. Follows simple commands. No obvious cranial nerve deficits. Motor grossly within normal limits. Does not respond to questions appropriately. Mumbling to herself incoherently. PSYCHIATRIC: Internally preoccupied. Hyperkinetic. Insight and judgment poor. Results - Labs CBC & Chem 7: 01/09/18 14:58 01/10/18 15:18 Laboratory Results - last 24 hr 01/10/18 15:18 Sodium 147 H Potassium 3.4 L Chloride 110 H Carbon Dioxide 22.0 Anion Gap 15 BUN 14 Creatinine 0.85 Estimated GFR 84 L Random Glucose 83 Calcium 9.2 Total Creatine Kinase 726 H CK-MB (CK-2) 5.4 H CK-MB (CK-2) % 0.7 Assessment and Plan - Plan This is a 21-year-old female with past medical history significant for schizophrenia, catatonic type, bipolar disorder, cannabis use disorder who was admitted to inpatient psychiatry secondary to mental decompensation with disorganized thought process, bizarre thinking and hyper religiosity after her schizophrenic medications were discontinued by her parents 2 months ago and who has since been admitted to [facility] for worsening mental status and bilateral lower extremity edema. Hospitalist services consulted for evaluation and management. Schizophrenia, catatonic type Bipolar disorder 01/10 patient extremely restless today, poor p.o. intake, concern for rhabdomyolysis -Management per psychiatry Rhabdomyolysis, CPK 726 Hypernatremia, sodium level 147 Suspect secondary to dehydration/poor oral intake and increased agitation -Patient to be moved to [facility] for IV fluid management, discussed with nursing staff -Repeat CPK and BMP in a.m. -Monitor kidney function closely Concern for NMS ?malignant catatonia - patient is on Zyprexa Patient is hyperthermic, with temp 100, ?rigidity, tachycardic, high BP, elevated CK -r/o organic cause, obtain CBC and CMP. Obtain CXR and UA. -give IVF bolus followed by continuous aggressive IV fluid hydration Hypokalemia status post oral repletion -Repeat BMP pending Bilateral lower extremity edema, improved Doppler studies negative for DVT Discussed with Dr. 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 -Bilateral OKSANA hose -continue with PT -continue to monitor Tachycardia Patient does not appear to have any chest pain complaints EKG shows sinus tach 7/6 HR 140, 7/7 HR 147 -We will obtain 2D echocardiogram as above -Increase propranolol dose to 20 mg 3 times daily -monitor HR DVT prophylaxis -Patient is ambulatory
--- NOTE | 2018-01-11 13:52 | XR ---
EXAM DATE: 01/11/2018 1:50 PM EDT AGE/SEX: 22 years / Female INDICATIONS: Fever and shortness of breath. CLINICAL DATA: This is the patient's initial encounter. Patient reports that signs and symptoms have been present for 1 day and indicates a pain score of 0/10. MEDICAL/SURGICAL HISTORY: None. None. COMPARISON: [facility] [place], CHEST PA & LAT, 12/10/2016. . FINDINGS: A single AP view of the chest demonstrates the lungs to be symmetrically aerated without evidence of mass, infiltrate or effusion. The cardiomediastinal contours are unremarkable. Osseous structures a re intact. CONCLUSION: No acute cardiopulmonary disease Electronically signed by: Prieto Rock MD 01/11/2018 1:51 PM EDT
[2018-01-11 14:49] LABS: Baso # (Auto) 0.1 th/mm3 (0.0-0.2); Baso % (Auto) 0.5 % (0.0-2.0); Eos % (Auto) 0.1 % (0.0-4.0); Hematocrit 38.2 % (35.0-46.0); Lymph # (Auto) 1.7 th/mm3 (1.0-4.8); Lymph % (Auto) 13.7 % (9.0-44.0); Mean Corpuscular HGB Conc 34.1 % (32.0-36.0); Mean Corpuscular Hemoglobin 31.4 pg (27.0-34.0); Mono # (Auto) 0.9 th/mm3 (0.0-0.9); Mono % (Auto) 7.2 % (0.0-8.0); Neut % (Auto) 78.5 % (16.0-70.0); Platelet Count 271 th/mm3 (150-450); Red Blood Count 4.15 mil/mm3 (4.00-5.30); Red Cell Distribution Width 13.4 % (11.6-17.2); White Blood Count 12.7 th/mm3 (4.0-11.0)
[2018-01-11 15:14] LABS: Alanine Aminotransferase 38 U/L (10-53); Albumin 3.9 g/dL (3.4-5.0); Anion Gap 11 meq/L (5-15); Aspartate Aminotransferase 34 U/L (15-37); Blood Urea Nitrogen 12 mg/dL (7-18); Calcium 8.8 mg/dL (8.5-10.1); Carbon Dioxide 22.9 meq/L (21.0-32.0); Chloride 112 meq/L (98-107); Glomerular Filtration Rate Greater Than 89 mL/min (>89); Glucose,Random 81 mg/dL (74-106); Potassium 3.5 meq/L (3.5-5.1); Sodium 146 meq/L (136-145)
[2018-01-11 15:16] LABS: Alkaline Phosphatase 94 U/L (45-117)
[2018-01-11 15:45] LABS: CKMB Percent 0.4 % (0.0-4.0)
--- NOTE | 2018-01-11 18:47 | P.PNPSY ---
Subjective Remarks: - Pt seen and discussed with staff. Yesterdays notes reviewed. Pt remains disorganized in thought process but has been more communicative today. Staff report that pt has difficulty taking medications and requires lots of prompting due to disorganized thought process. She is tolerating cross taper/titration of olanzapine and abilify without side effects. No SI/HI. She c/o of AH. Review of Systems Psychiatric: Reports hearing things others do not hear Mental Status Examination Appearance: Appropriate, Disheveled, Other (wearing hospital clothes) Consciousness: Alert Orientation: Person Motor Activity: Other (Somewhat hyperkinetic but no other motor abnormalities noted. No rigidity or other signs of NMS noted.) Speech: Other (mostly coherent interspersions of incoherency) Language: Other (rambling) Fund of Knowledge: Inadequate Attention and Concentration: Easily distracted Memory: Impaired Mood: Manic Affect: Other (Remains childlike, smiling) Thought Process & Associations: Loose associations, Disorganized Thought Content: Hallucinations Hallucination Type: Auditory, Other (Remains internally stimulated) Delusion Type: Bizarre, Paranoid Suicidal Ideation: No (No SI voiced) Suicidal Plan: No Suicidal Intention: No Homicidal Ideation: No (No HI voiced) Homicidal Plan: No Homicidal Intention: No Insight: Poor Judgment: Poor Assessment and Plan - Assessment (1) Bipolar affective disorder, currently manic, severe, with psychotic features Code(s): F31.2 - Bipolar disorder, current episode manic severe with psychotic features Status: Acute - Plan Plan: Continue current tx plan. Justification for Continued Inpatient Stay: impairments in reality testing and self care Request Healthcare Surrogate/Guardian Advocate?: Yes
[2018-01-11] MEDS: OLANZapine 10 MG ODT Tablet PO SCH (20:53)
[2018-01-11] MEDS: Nystatin 100,000 UNITS/GM Powder 15 GM Bottle TOPICAL SCH (20:55)
[2018-01-11] MEDS: LORazepam 1 MG Tablet PO PRN (20:56)
[2018-01-12] MEDS: Sod Chloride 0.9% Inj 1,000 ML IV.CONT SCH ×2 (05:41→10:52)
--- NOTE | 2018-01-12 09:11 | P.PN ---
Subjective Interval history: Follow-up on patient with rhabdomyolysis, hypernatremia, lower extremity edema. Patient seen and examined. Patient is encountered lying in bed, awake, mimicking the movements of the individuals she is watching on TV. + Hyperkinetic. She mumbling to herself incoherently. Internally preoccupied. She will follow simple commands. Discussed with Pepe CONNER, patient received fluid bolus this am, ate about 40% of breakfast and vomited x 1 episode. Physical Exam Vital signs: Vital Signs 01/11/18 18:00 01/11/18 19:00 Temperature 98.3 F 98.5 F Pulse Rate 114 H 112 H Respiratory Rate 16 17 Blood Pressure 132/81 133/63 Pulse Oximetry 97 93 L Intake & Output 01/11/18 01/12/18 01/12/18 18:59 06:59 18:59 Intake Total 1314 / 1314 Balance 1314 / 1314 Intake: Oral 315 / 315 Other 999 / 999 Other: # Voids 1 # Incontinent Voids 1 Narrative: GENERAL: This is a well-developed,well-nourished overweight female, in no acute distress. She remains hyperkinetic lying in bed mimicking the movements of the [employer] on TV. SKIN: Warm and dry. No generalized rash. HEENT: Atraumatic. Normocephalic. EOMI. No scleral icterus. No injection or drainage. No nasal bleeding or discharge. Dry mucus membranes. Airway patent. NECK: Trachea midline. CARDIOVASCULAR: Tachycardic, no murmur rubs or gallops. RESPIRATORY: Nonlabored. Clear to auscultation. Breath sounds equal bilaterally. GASTROINTESTINAL: Abdomen soft, nondistended. No tenderness to palpation. No guarding. Bowel sounds normal. MUSCULOSKELETAL: Extremities without clubbing or cyanosis. No pitting edema noted BLE, previous areas of erythema has resolved. NEUROLOGICAL: Awake. Oriented to self. Follows simple commands. No obvious cranial nerve deficits. Motor grossly within normal limits. Does not respond to questions appropriately. Mumbling to herself incoherently. PSYCHIATRIC: Internally preoccupied. Hyperkinetic. Insight and judgment poor. Results - Labs CBC & Chem 7: 01/11/18 13:28 01/11/18 13:28 Laboratory Results - last 24 hr 01/11/18 01/11/18 01/11/18 13:28 13:28 13:28 WBC 12.7 H RBC 4.15 Hgb 13.0 Hct 38.2 MCV 92.0 MCH 31.4 MCHC 34.1 RDW 13.4 Plt Count 271 MPV 9.0 Neut % (Auto) 78.5 H Lymph % (Auto) 13.7 [place] % (Auto) 7.2 Eos % (Auto) 0.1 Baso % (Auto) 0.5 Neut # (Auto) 10.0 H Lymph # (Auto) 1.7 [place] # (Auto) 0.9 Eos # (Auto) 0.0 Baso # (Auto) 0.1 WBC Differential . Differential Comment Auto diff final Sodium 146 H Potassium 3.5 Chloride 112 H Carbon Dioxide 22.9 Anion Gap 11 BUN 12 Creatinine 0.70 Estimated GFR Greater than 89 Random Glucose 81 Calcium 8.8 Total Bilirubin 0.7 AST 34 ALT 38 Alkaline Phosphatase 94 Total Creatine Kinase 680 H CK-MB (CK-2) 3.0 CK-MB (CK-2) % 0.4 Total Protein 7.0 Albumin 3.9 - Imaging Impressions Chest X-Ray 01/11/18 00:00 CONCLUSION: No acute cardiopulmonary disease Assessment and Plan - Plan This is a 21-year-old female with past medical history significant for schizophrenia, catatonic type, bipolar disorder, cannabis use disorder who was admitted to inpatient psychiatry secondary to mental decompensation with disorganized thought process, bizarre thinking and hyper religiosity after her schizophrenic medications were discontinued by her parents 2 months ago and who has since been admitted to [facility] for worsening mental status and bilateral lower extremity edema. Hospitalist services consulted for evaluation and management. Schizophrenia, catatonic type Bipolar disorder 01/10 patient extremely restless today, poor p.o. intake, concern for rhabdomyolysis -Management per psychiatry Rhabdomyolysis, CPK 726 Hypernatremia, sodium level 147 Suspect secondary to dehydration/poor oral intake and increased agitation -CPK and Na level trending down on IVF -Monitor kidney function closely Leukocytosis, suspect reactive Patient is afebrile, she does not appear septic CXR negative UA pending +one episode of emesis following fluid bolus -continue to monitor Hypokalemia, resolved s/p repletion Bilateral lower extremity edema, improved Doppler studies negative for DVT Discussed with Dr. 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 BP tolerating increased dose. -monitor HR DVT prophylaxis -Patient is ambulatory Discussed Condition With: Pepe boyer RN, Dr. Salas
[2018-01-12 10:39] LABS: Anion Gap 16 meq/L (5-15); Blood Urea Nitrogen 11 mg/dL (7-18); Calcium 8.8 mg/dL (8.5-10.1); Carbon Dioxide 17.4 meq/L (21.0-32.0); Chloride 108 meq/L (98-107); Glomerular Filtration Rate Greater Than 89 mL/min (>89); Glucose,Random 94 mg/dL (74-106); Magnesium 1.8 mg/dL (1.5-2.5); Potassium 3.4 meq/L (3.5-5.1); Sodium 141 meq/L (136-145)
[2018-01-12 10:42] LABS: Creatine Kinase 390 U/L (26-192)
[2018-01-12] MEDS: Propranolol 10 MG Tablet PO SCH ×3 (10:50→18:07)
[2018-01-12] MEDS: Nystatin 100,000 UNITS/GM Powder 15 GM Bottle TOPICAL SCH ×2 (10:52→21:45)
--- NOTE | 2018-01-12 10:59 | P.PNPSY ---
Subjective Remarks: Patient seen for follow-up, chart reviewed. Discussion with nursing staff reported the patient continues with involuntary movements at times, disoriented , having echolalia, compliant with medications and had poor sleep this evening currently on IV fluids. Patient was found in bed with some spontaneous hyperkinetic movements, was able to maintain eye contact with blog writer although continues to have echolalia at times, disorganized, easily distracted with television and at times making nonsensical statements. Patient appears to be tolerating medications well, patient currently on IV fluids, vital signs have been stable. Review of Systems All other systems reviewed negative except as stated in HPI Mental Status Examination Appearance: Appropriate, Disheveled, Other (wearing hospital clothes) Consciousness: Alert Orientation: Person Motor Activity: Other (Somewhat hyperkinetic but no other motor abnormalities noted. No rigidity or other signs of NMS noted.) Speech: Other (mostly coherent interspersions of incoherency) Language: Other (rambling) Fund of Knowledge: Inadequate Attention and Concentration: Easily distracted Memory: Impaired Mood: Manic Affect: Other (Remains childlike, smiling) Thought Process & Associations: Loose associations, Disorganized Thought Content: Hallucinations Hallucination Type: Auditory, Other (Remains internally stimulated) Delusion Type: Bizarre, Paranoid Suicidal Ideation: No (No SI voiced) Suicidal Plan: No Suicidal Intention: No Homicidal Ideation: No (No HI voiced) Homicidal Plan: No Homicidal Intention: No Insight: Poor Judgment: Poor Assessment and Plan - Assessment (1) Bipolar affective disorder, currently manic, severe, with psychotic features Code(s): F31.2 - Bipolar disorder, current episode manic severe with psychotic features Status: Acute - Plan Plan: Patient continues to have some hyperkinetic movements likely from akathisia patient currently on propranolol to address this as well as patient currently cross titrating Abilify for olanzapine which she appears to be tolerating well. Vital signs have been stable, there is no rigidity noted, CK levels also have been decreasing; continue to monitor her possible signs and symptoms of NMS. Continue current treatment. Continue to monitor mood and behavior. Discharge planning in progress. Justification for Continued Inpatient Stay: At risk for further decompensation if at lower level of care Request Healthcare Surrogate/Guardian Advocate?: Yes
[2018-01-12] MEDS ORDERED: ARIPiprazole 10 MG Tablet PO SCH (11:00)
[2018-01-12 11:05] LABS: CKMB Percent 0.6 % (0.0-4.0); Creatine Kinase MB 2.3 ng/mL (0.5-3.6)
--- NOTE | 2018-01-12 18:36 | XR ---
EXAM DATE: 01/12/2018 6:32 PM EDT AGE/SEX: 22 years / Female INDICATIONS: Dysphagia. CLINICAL DATA: This is the patient's initial encounter. Patient reports that signs and symptoms have been present for 1 day and indicates a pain score of 0/10. MEDICAL/SURGICAL HISTORY: None. None. COMPARISON: [facility] [place] 1[place] SING[place] AP, 01/11/2018. . FINDINGS: There is patchy basilar airspace disease, left greater than right. No effusion. No pneumothorax. Hear t size mildly enlarged. CONCLUSION: Basilar airspace disease predominantly on the left side. Differential diagnosis includes pneumonia an d aspiration Electronically signed by: Rolando Nuñez MD 01/12/2018 6:34 PM EDT
[2018-01-12] MEDS: OLANZapine 10 MG ODT Tablet PO SCH (21:45)
[2018-01-13] MEDS: Propranolol 10 MG Tablet PO SCH (09:00)
[2018-01-13 09:06] LABS: Baso % (Auto) 0.4 % (0.0-2.0); Eos # (Auto) 0.1 th/mm3 (0.0-0.4); Hematocrit 37.4 % (35.0-46.0); Hemoglobin 12.6 gm/dL (11.6-15.3); Lymph # (Auto) 1.7 th/mm3 (1.0-4.8); Lymph % (Auto) 17.3 % (9.0-44.0); Mean Corpuscular HGB Conc 33.8 % (32.0-36.0); Mean Corpuscular Hemoglobin 30.9 pg (27.0-34.0); Mean Corpuscular Volume 91.6 fL (80.0-100.0); Mean Platelet Volume 9.2 fL (7.0-11.0); Mono # (Auto) 0.7 th/mm3 (0.0-0.9); Mono % (Auto) 7.6 % (0.0-8.0); Neut # (Auto) 7.1 th/mm3 (1.8-7.7); Neut % (Auto) 73.7 % (16.0-70.0); Platelet Count 244 th/mm3 (150-450); Red Blood Count 4.08 mil/mm3 (4.00-5.30); Red Cell Distribution Width 13.3 % (11.6-17.2); White Blood Count 9.6 th/mm3 (4.0-11.0)
[2018-01-13 09:11] LABS: Anion Gap 15 meq/L (5-15); Blood Urea Nitrogen 10 mg/dL (7-18); Calcium 8.9 mg/dL (8.5-10.1); Carbon Dioxide 19.6 meq/L (21.0-32.0); Chloride 107 meq/L (98-107); Glomerular Filtration Rate Greater Than 89 mL/min (>89); Glucose,Random 86 mg/dL (74-106); Potassium 3.3 meq/L (3.5-5.1); Sodium 142 meq/L (136-145)
--- NOTE | 2018-01-13 10:09 | P.PN ---
Subjective Interval history: Follow-up on patient with rhabdomyolysis, hypernatremia, lower extremity edema. Patient seen and examined. Late in the day yesterday, patient developed additional episodes of vomiting and cough while eating. X-ray concerning for aspiration. Patient communicates that she does not feel well. Discussed with nursing staff, n.p.o. until speech therapy assess his swallow function. Begin IV fluids. Physical Exam Vital signs: Vital Signs 01/12/18 17:23 01/13/18 04:58 Temperature 98.3 F 99.1 F Pulse Rate 123 H 56 L Respiratory Rate 18 16 Blood Pressure 144/68 H 121/86 Pulse Oximetry 97 98 Intake & Output 01/12/18 01/13/18 01/13/18 18:59 06:59 18:59 Intake Total 1119 / 1119 60 / 60 Output Total 3 / 3 Balance 1119 / 1119 57 / 57 Weight 77.5 kg Intake: IV 639 / 639 NS Inj 1,000 ML @ 125 mls/hr IV 639 / 639 .CONT .Q8H ELSY Rx#:[id number] Oral 480 / 480 60 / 60 Output: Urine 3 3 Other: # [place] 2 Narrative: GENERAL: This is a well-developed,well-nourished overweight female, in no acute distress. Awake and alert, appears much calmer today with significantly less spontaneous movements. She has good eye contact today, able to follow commands. SKIN: Warm and dry. No generalized rash. HEENT: Atraumatic. Normocephalic. EOMI. No scleral icterus. No injection or drainage. No nasal bleeding or discharge. Dry mucus membranes. Airway patent. NECK: Trachea midline. CARDIOVASCULAR: Tachycardic, no murmur rubs or gallops. RESPIRATORY: Nonlabored. Clear to auscultation. Breath sounds equal bilaterally. GASTROINTESTINAL: Abdomen soft, nondistended. No tenderness to palpation. No guarding. Bowel sounds normal. MUSCULOSKELETAL: Extremities without clubbing or cyanosis. No pitting edema noted BLE, previous areas of erythema has resolved. NEUROLOGICAL: Awake and alert. Follows simple commands. No obvious cranial nerve deficits. Motor grossly within normal limits. Responding to questions more appropriately. PSYCHIATRIC: More calm today, movements normokinetic. Able to make better eye contact. Insight and judgment poor. Results - Labs CBC & Chem 7: 01/13/18 07:58 01/13/18 07:58 Laboratory Results - last 24 hr 01/12/18 01/13/18 01/13/18 09:10 07:58 07:58 WBC 9.6 RBC 4.08 Hgb 12.6 Hct 37.4 MCV 91.6 MCH 30.9 MCHC 33.8 RDW 13.3 Plt Count 244 MPV 9.2 Neut % (Auto) 73.7 H Lymph % (Auto) 17.3 [place] % (Auto) 7.6 Eos % (Auto) 1.0 Baso % (Auto) 0.4 Neut # (Auto) 7.1 Lymph # (Auto) 1.7 [place] # (Auto) 0.7 Eos # (Auto) 0.1 Baso # (Auto) 0.0 WBC Differential . Differential Comment Auto diff final Sodium 141 142 Potassium 3.4 L 3.3 L Chloride 108 H 107 Carbon Dioxide 17.4 L 19.6 L Anion Gap 16 H 15 BUN 11 10 Creatinine 0.72 0.53 Estimated GFR Greater than 89 Greater than 89 Random Glucose 94 86 Calcium 8.8 8.9 Magnesium 1.8 Total Creatine Kinase 390 H CK-MB (CK-2) 2.3 CK-MB (CK-2) % 0.6 - Imaging Impressions Chest X-Ray 01/12/18 00:00 CONCLUSION: Basilar airspace disease predominantly on the left side. Differential diagnosis includes pneumonia and aspiration Assessment and Plan - Plan This is a 21-year-old female with past medical history significant for schizophrenia, catatonic type, bipolar disorder, cannabis use disorder who was admitted to inpatient psychiatry secondary to mental decompensation with disorganized thought process, bizarre thinking and hyper religiosity after her schizophrenic medications were discontinued by her parents 2 months ago and who has since been admitted to [facility] psych for worsening mental status and bilateral lower extremity edema. Hospitalist services consulted for evaluation and management. Schizophrenia, catatonic type Bipolar disorder -Management per psychiatry Possible aspiration pneumonia CXR reveals basilar airspace disease predominantly on the left, concern for aspiration pneumonia, images reviewed by me -Begin on IV Zosyn and Flagyl. Duonebs scheduled. Acapella and IS. -N.p.o. for now. Begin IV fluids -Pending speech therapy for swallow evaluation -Aspiration precautions Mild rhabdomyolysis, CPK 726 Hypernatremia, sodium level 147 Suspect secondary to dehydration/poor oral intake and increased agitation -much improved, continue to monitor as indicated Hypokalemia K 3.3 Mag 1.8 -IV repletion ordered -repeat BMP in am to monitor response Bilateral lower extremity edema, improved Doppler studies negative for DVT Discussed with Dr. 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 -Monitor heart rate DVT prophylaxis -Patient is ambulatory Discussed Condition With: patient, nursing staff, Dr. Harris
[2018-01-13] MEDS ORDERED: Potassium Chlor 20 mEq Premix 20 MEQ/100 ML PIGGYBACK IV.SIG SCH (11:00)
--- NOTE | 2018-01-13 11:03 | P.PNPSY ---
Subjective Remarks: Patient seen and examined with nurse. Chart reviewed. Zyprexa not administered last night secondary to N/V. Case discussed with nursing staff. Case discussed with midlevel provider from hospitalist service. Low suspicion for NMS. Concern now is for possible aspiration PNA. Speech therapy recs noted. Dietitian input noted. On my exam, patient presents as childlike with a bland smiling countenance. She is a little more organized today. She is able to answer some questions appropriately, for example telling me that it is January,. She denies any AVH. No evident side effects from medications. No physical complaints. Vital Signs Temp Pulse Resp BP Pulse Ox 01/13/18 04:58 99.1 F 56 L 16 121/86 98 01/12/18 17:23 98.3 F 123 H 18 144/68 H 97 Intake and Output 01/13/18 01/13/18 01/13/18 06:59 14:59 22:59 Intake Total 60 / 60 120 / 120 Output Total 3 / 3 Balance 57 / 57 120 / 120 Intake: Oral 60 / 60 120 / 120 Output: Urine 3 / 3 Other: Weight 77.5 kg Laboratory Results - last 24 hr 01/13/18 01/13/18 07:58 07:58 WBC 9.6 RBC 4.08 Hgb 12.6 Hct 37.4 MCV 91.6 MCH 30.9 MCHC 33.8 RDW 13.3 Plt Count 244 MPV 9.2 Neut % (Auto) 73.7 H Lymph % (Auto) 17.3 [place] % (Auto) 7.6 Eos % (Auto) 1.0 Baso % (Auto) 0.4 Neut # (Auto) 7.1 Lymph # (Auto) 1.7 [place] # (Auto) 0.7 Eos # (Auto) 0.1 Baso # (Auto) 0.0 WBC Differential . Differential Comment Auto diff final Sodium 142 Potassium 3.3 L Chloride 107 Carbon Dioxide 19.6 L Anion Gap 15 BUN 10 Creatinine 0.53 Estimated GFR Greater than 89 Random Glucose 86 Calcium 8.9 Labs reviewed. CK down-trending. Impressions Chest X-Ray 01/12/18 00:00 CONCLUSION: Basilar airspace disease predominantly on the left side. Differential diagnosis includes pneumonia and aspiration PE: No increased tone in UE or LE. No pathologic clonus at the ankle. No cog- wheeling. No dystonias or dyskinesias noted. Review of Systems unobtainable due to mental condition Mental Status Examination Appearance: Disheveled Consciousness: Alert Orientation: Person, Date/Time Motor Activity: Other (No motor abnormalities noted.) Speech: Other (mostly coherent interspersions of incoherency) Language: Other (rambling) Fund of Knowledge: Inadequate Attention and Concentration: Easily distracted Memory: Impaired Mood: Other (calm) Affect: Other (Again childlike, smiling) Thought Process & Associations: Tangential Thought Content: Bizarre thinking Hallucination Type: Other (Denies AVH but appears somewhat internally stimulated ) Delusion Type: None Suicidal Ideation: No (No SI voiced) Homicidal Ideation: No (No HI voiced) Insight: Poor Judgment: Poor Assessment and Plan - Assessment (1) Bipolar affective disorder, currently manic, severe, with psychotic features Code(s): F31.2 - Bipolar disorder, current episode manic severe with psychotic features Status: Acute - Plan Plan: Taper Abilify to 5mg PO daily. Continue Zyprexa 10mg qHS since patient did not receive her dose last night with plans to titrate to 15mg qHS tomorrow. Customer Support Associate input noted and appreciated. Continue to monitor on med psych unit. Continue other medications and care as ordered. Justification for Continued Inpatient Stay: Medication changes. Impairment in self-care. Impairment in reality construction. Risk for decompensation in less restrictive environment. Discharge Planning: Pending psychiatric stabilization. Request Healthcare Surrogate/Guardian Advocate?: Yes
--- NOTE | 2018-01-13 13:24 | P.DIET ---
Nutritional Evaluation Type of nutrition evaluation: follow-up Nutrition consult regarding: Diet Evaluation Nutrition screening: Poor PO Intake, [place] [facility] [place] Subjective Barriers to Nutrition: Refuses to eat at times Oral Diet Tolerance Assessment Indicates: Swallowing problems Subjective Comments: Pt receiving an Echo 2D when Calorie Count Envelope collected. DALILA Hazel reports pt has been c/o swallowing problem. Objective - Diagnosis Unspecified Psychosis - Indications of Malnutrition Characteristics: Insufficient energy intake - Objective % IBW: 147 Body Weight Used for Calculations: IBW Energy Needs - Lower Range (kCal/kg): 28 Energy Needs - Upper Range (kCal/kg): 33 Lower Limit kCal/kg (kCals): 1,591 Upper Limit kCal/kg (kCals): 1,874 Lower Limit Protein Factor (Grams per Kg): 1.4 Upper Limit Protein Factor (Grams per Kg): 1.6 Lower Protein Needs (Protein): 80 Upper Protein Needs (Protein): 91 Fluid Factor (ml/kg): 33 Estimated Fluid Needs (ml): 1,874 Dietitian Reviewed in Medical Record: Current diet, Curent medications, Intake & Output, Labs, Medical history Diet Order: [facility] Soft Oral Diet Intake Amount: Poor <50% Speech Therapy Recommendations: Yes (Mechanical Soft Thin Liquids) Objective Comments: PMH: Schizophrenia-catatonic type, bipolar DO, Cannabis Use DO HgA1C 5.0 Meds Include: Abilify, Ativan, Zyprexa, Ambien Feeding - Current PO Supplement Current Supplement: Ensure Original Current Supplement Flavor: Chocolate Current Frequency of Supplement: Three times a day Current kCals Provided by Supplement: 250 Current Protein Provided by Supplement: 9 - kCal Count Day 1 kCal Intake: 470 Day 1 Protein Intake: 19 kCal Comments: No Meal Slips collected for 01/11 and 01/12. Pt NPO 01/12 through breakfast today 01/13 Assessment Assessment: Pt is at nutritional risk r/t poor po intake. INCOMPLETE Calorie Count 01/10 through 01/12 w/meal slips not collected and pt NPO 01/12 through breakfast today. Plan to restart Calorie Count today, 01/13 through 01/15 w/Nutrition Recs to follow 01/16. Continue chocolate milk, milk and Ensure tid(= 250 kcal and 9g Protein per serving). Wt changes noted. Recommendations: 1. INCOMPLETE Calorie Count 01/10 through 01/12 w/meal slips not collected and pt NPO 01/12 through breakfast today. 2. Restart Calorie Count today, 01/13 through 01/15 w/Nutrition Recs to follow 01/16 3. Continue chocolate milk, milk and Ensure tid Dietitian to Monitor: Lab values, Supplement acceptance, Intake & Output, Weight change, PO Intake
[2018-01-13] MEDS: Nystatin 100,000 UNITS/GM Powder 15 GM Bottle TOPICAL SCH (15:40)
[2018-01-13] MEDS: Sod Chloride 0.9% Inj 1,000 ML IV.CONT SCH (15:41)
[2018-01-13] MEDS: Piperacil/Tazo 4.5 GM Premix 4.5 GM/100 ML BAG IV.SIG SCH ×3 (15:45→21:43)
--- NOTE | 2018-01-13 17:49 | ECHRPT ---
Indication: HEART FAILURE CONCLUSIONS The left ventricular systolic function is normal with an estimated ejection fraction in the range of 55-60%. No tricuspid valve stenosis. Trivial pulmonary valve regurgitation. BP: / HR: Rhythm: MEASUREMENTS (Male / Female) Normal Values Technical Quality: 2D ECHO LV Diastolic Diameter PLAX 3.7 cm 4.2 - 5.9 / 3.9 - 5.3 cm LV Systolic Diameter PLAX 2.6 cm IVS Diastolic Thickness 0.8 cm 0.6 - 1.0 / 0.6 - 0.9 cm LVPW Diastolic Thickness 0.5 cm 0.6 - 1.0 / 0.6 - 0.9 cm LV Relative Wall Thickness 0.3 RV Internal Dim ED PLAX 1.5 cm LA Systolic Diameter LX 2.4 cm 3.0 - 4.0 / 2.7 - 3.8 cm M-MODE Aortic Root Diameter MM 2.4 cm AV Cusp Separation MM 1.6 cm DOPPLER Mitral E Point Velocity 83.9 cm/s Mitral A Point Velocity 75.9 cm/s Mitral E to A Ratio 1.1 TR Peak Velocity 151.0 cm/s TR Peak Gradient 9.1 mmHg Right Atrial Pressure 5.0 mmHg Pulmonary Artery Systolic Pressu 14.1 mmHg Right Ventricular Systolic Press 14.1 mmHg FINDINGS LEFT VENTRICLE Normal left ventricular size. Wall thickness is normal. The left ventricular systolic function is normal with an estimated ejection fraction in the range of 55-60%. This study was not technically sufficient to allow for evaluation of left ventricular diastolic func tion. RIGHT VENTRICLE Normal right ventricular size and systolic function. LEFT ATRIUM The left atrial size is normal. RIGHT ATRIUM The right atrial size is normal. ATRIAL SEPTUM Normal atrial septal thickness AORTA The aortic root and proximal ascending aorta are normal in size on limited imaging. MITRAL VALVE Structurally normal mitral valve. No mitral valve stenosis or regurgitation. AORTIC VALVE Trileaflet aortic valve. No aortic valve stenosis or regurgitation. TRICUSPID VALVE Structurally normal tricuspid valve. No tricuspid valve stenosis. There is trace tricuspid valve regurgitation. PULMONARY VALVE Trivial pulmonary valve regurgitation. VESSELS The inferior vena cava is normal in size. PERICARDIUM No pericardial effusion. Osmin Grullon DO (Electronically Signed) Final Date:13 January 2018 17:48
[2018-01-13] MEDS: OLANZapine 10 MG ODT Tablet PO SCH (21:12)
[2018-01-14] MEDS: Nystatin 100,000 UNITS/GM Powder 15 GM Bottle TOPICAL SCH ×4 (00:29→20:46)
[2018-01-14] MEDS: Sod Chloride 0.9% Inj 1,000 ML IV.CONT SCH ×2 (00:30→10:56)
[2018-01-14] MEDS: Piperacil/Tazo 4.5 GM Premix 4.5 GM/100 ML BAG IV.SIG SCH ×3 (04:16→17:02)
[2018-01-14] MEDS ORDERED: ARIPiprazole 5 MG Tablet PO SCH (09:00)
--- NOTE | 2018-01-14 09:40 | P.PN ---
Subjective Interval history: Follow-up visit for rhabdomyolysis, hypernatremia, and hypokalemia. Spoke with nurse who does not report any acute concerns today. Passed her swallow evaluation, now on mechanical soft diet with regular liquids. Tolerating diet with no complaints per nursing. Patient is seen and examined resting in bed comfortably and appears to be in no acute distress with sitter at bedside. Patient smiles and answers questions on and off gas and no by shaking her head, following simple commands. Physical Exam Vital signs: Vital Signs 01/13/18 18:25 01/14/18 06:46 01/14/18 08:49 Temperature 37.5 C 36.9 C Pulse Rate 131 H 118 H 120 H Respiratory Rate 19 22 18 Blood Pressure 114/84 107/55 L Pulse Oximetry 95 95 Intake & Output 01/13/18 01/14/18 01/14/18 18:59 06:59 18:59 Intake Total 1520 / 1520 1460 / 1460 Output Total / Balance 1520 / 1520 1459 / 1459 Intake: IV 200 / 200 1100 / 1100 NS Inj 1,000 ML @ 75 mls/hr IV. 1000 / 1000 CONT .[id number] ELSY Rx#:[id number] Zosyn 4.5 GM Premix 4.5 gm In 100 / 100 100 / 100 100 ml @ 200 mls/hr IV.SIG Q6H ELSY Rx#:[id number] Flagyl 500 MG Inj 100 ML @ 100 100 / 100 mls/hr IV.SIG Q8H ELSY Rx#: [id number] Oral 1320 / 1320 360 / 360 Output: Urine / Other: # Voids 0 Narrative: GENERAL: This is a well-developed,well-nourished overweight female, in no acute distress. Awake and alert appears to be in acute distress. SKIN: Warm and dry. HEENT: Atraumatic. Normocephalic. EOMI. No scleral icterus. No injection or drainage. No nasal bleeding or discharge. Airway patent. NECK: Trachea midline. CARDIOVASCULAR: Tachycardic, no murmur rubs or gallops. RESPIRATORY: Nonlabored. Clear to auscultation. Breath sounds equal bilaterally. GASTROINTESTINAL: Abdomen soft, nondistended. No tenderness to palpation. No guarding. Bowel sounds normal. MUSCULOSKELETAL: Extremities without clubbing or cyanosis. No edema noted on extremities. NEUROLOGICAL: Awake and alert. Follows simple commands. No obvious cranial nerve deficits. Motor grossly within normal limits. Shakes head yes and no further questions. PSYCHIATRIC: Appears calm and cooperative. Insight and judgment poor. Results - Labs CBC & Chem 7: 01/13/18 07:58 01/14/18 10:40 Assessment and Plan - Plan This is a 21-year-old female with past medical history significant for schizophrenia, catatonic type, bipolar disorder, cannabis use disorder who was admitted to inpatient psychiatry secondary to mental decompensation with disorganized thought process, bizarre thinking and hyper religiosity after her schizophrenic medications were discontinued by her parents 2 months ago and who has since been admitted to med psych for worsening mental status and bilateral lower extremity edema. Hospitalist services consulted for evaluation and management. Schizophrenia, catatonic type Bipolar disorder -Management per psychiatry Possible aspiration pneumonia CXR reveals basilar airspace disease predominantly on the left, concern for aspiration pneumonia, images reviewed by me -Continue on IV Zosyn and Flagyl. Duonebs scheduled. Acapella and IS. -Past swallow evaluation with recommendations for mechanical soft diet with thin liquids, aspiration precautions. -Afebrile, O2 saturation stable on room air. Mild rhabdomyolysis Hypernatremia, resolved NA 144 Suspect secondary to dehydration/poor oral intake and increased agitation -CK 390-->719, will increase IVF to 100ml/hr - Creatinine stable, recheck CK tomorrow Hypokalemia - s/p replacement IV, K level this morning 3.1, replaced with a total of 40 meq's of KCl IV -Scheduled p.o. KCl, recheck BMP and mag levels in the a.m. 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
--- NOTE | 2018-01-14 11:22 | P.PNPSY ---
Subjective Remarks: Patient seen and examined with sitter at the bedside. Chart reviewed. Dietitian, speech therapy and hospitalist input noted and appreciated. Case discussed with nursing staff. Case discussed in treatment team. I instructed counselor to explore feasibility of possible ECT referral, should patient not respond adequately to pharmacotherapy. Case discussed with the mid-level provider for the hospitalist service. I have reviewed echocardiogram results with mid-level provider. I note that the patient's Zyprexa was held overnight with the charted reason being sedation. However, I note that the patient was subsequently given Ambien for insomnia and nurse relates that patient has been sleeping poorly. I have instructed nurse to pass along to night staff that Zyprexa should be given as it is sedating but also (unlike Ambien) provides antipsychotic and mood stabilizing effect. On my exam, patient continues to smile blandly. Some mild affective lability. She remains internally stimulated. Her speech is a little less coherent today versus yesterday. Per sitter, patient is eating little. No evident side effects from medications. Patient does not appear to be in acute physical distress. Vital Signs Temp Pulse Resp BP Pulse Ox 01/14/18 13:24 120 H 26 H 01/14/18 08:49 120 H 18 01/14/18 06:46 98.4 F 118 H 22 107/55 L 95 01/13/18 18:25 99.5 F 131 H 19 114/84 95 Intake and Output 01/14/18 01/14/18 01/14/18 06:59 14:59 22:59 Intake Total 1100 / 1100 1340 / 1340 Balance 1100 / 1100 1340 / 1340 Intake: IV 1100 / 1100 1000 / 1000 NS Inj 1,000 ML @ 75 mls/hr IV. 1000 / 1000 1000 / 1000 CONT .[id number] ELSY Rx#:[id number] Zosyn 4.5 GM Premix 4.5 gm In 100 / 100 100 ml @ 200 mls/hr IV.SIG Q6H ELSY Rx#:[id number] Oral 340 / 340 Other: # Voids 0 Laboratory Results - last 24 hr 01/14/18 10:40 Sodium 144 Potassium 3.1 L Chloride 110 H Carbon Dioxide 20.8 L Anion Gap 13 BUN 8 Creatinine 0.63 Estimated GFR Greater than 89 Random Glucose 106 Calcium 9.3 Total Creatine Kinase 719 H CK-MB (CK-2) 4.7 H CK-MB (CK-2) % 0.7 Labs reviewed. CK trending back up. I note that hospitalist has ordered follow -up BMP, CK and magnesium for tomorrow morning. Review of Systems unobtainable due to mental condition Mental Status Examination Appearance: Disheveled Consciousness: Alert Orientation: Person Motor Activity: Other (Some echopraxia. No other motor abnormalities noted.) Speech: Other (Less coherent today) Language: Other (rambling) Fund of Knowledge: Inadequate Attention and Concentration: Easily distracted Memory: Impaired Mood: Other (calm) Affect: Labile (Mild) Thought Process & Associations: Disorganized Thought Content: Bizarre thinking Hallucination Type: Other (Remains internally stimulated) Delusion Type: None Suicidal Ideation: No (No SI voiced) Homicidal Ideation: No (No HI voiced) Insight: Poor Judgment: Poor Assessment and Plan - Assessment (1) Bipolar affective disorder, currently manic, severe, with psychotic features Code(s): F31.2 - Bipolar disorder, current episode manic severe with psychotic features Status: Acute - Plan Plan: It is imperative that patient receive her antipsychotic. If her Zyprexa cannot be reliably given at HS, we could consider moving it earlier in the afternoon, although given its sedating effect it is ideally given at HS. I cannot titrate this agent as I have not been able to assess impact of current dose. Continue other psychotropics as ordered. ECT is worth considering, although counselor, who also worked on patient's case during her last hospitalization, indicates that family was opposed to ECT at that time. Counselor to explore feasibility of referral for inpatient ECT and if feasible to consider recommending this avenue to [place] if patient does not respond adequately to pharmacologic approaches. Follow-up laboratories ordered by the hospitalist. Continue to monitor on the medical psychiatric unit. Continue one-to-one sitter for behavioral redirection. Occupational therapy consultation. Continue other medications and care as ordered. Justification for Continued Inpatient Stay: Impairment in reality construction. Impairment in self-care. Complicating conditions. High risk for decompensation in less restrictive environment. Discharge Planning: Pending psychiatric stabilization Request Healthcare Surrogate/Guardian Advocate?: Yes
[2018-01-14] MEDS: Propranolol 10 MG Tablet PO SCH ×2 (12:03→13:04)
[2018-01-14 12:22] LABS: Anion Gap 13 meq/L (5-15); Blood Urea Nitrogen 8 mg/dL (7-18); Calcium 9.3 mg/dL (8.5-10.1); Carbon Dioxide 20.8 meq/L (21.0-32.0); Chloride 110 meq/L (98-107); Glomerular Filtration Rate Greater Than 89 mL/min (>89); Glucose,Random 106 mg/dL (74-106); Potassium 3.1 meq/L (3.5-5.1); Sodium 144 meq/L (136-145)
[2018-01-14 12:25] LABS: Creatine Kinase 719 U/L (26-192)
[2018-01-14 12:50] LABS: CKMB Percent 0.7 % (0.0-4.0); Creatine Kinase MB 4.7 ng/mL (0.5-3.6)
[2018-01-14] MEDS: Potassium Chlor 20 mEq Premix 20 MEQ/100 ML PIGGYBACK IV.SIG SCH ×2 (18:11→20:45)
[2018-01-14] MEDS: OLANZapine 10 MG ODT Tablet PO SCH (20:46)
[2018-01-15] MEDS: Piperacil/Tazo 4.5 GM Premix 4.5 GM/100 ML BAG IV.SIG SCH ×2 (01:49→14:17)
--- NOTE | 2018-01-15 08:17 | P.PN ---
Subjective Interval history: Follow-up visit for rhabdomyolysis, hypernatremia, and hypokalemia. Spoke with nurse who reports patient with low grade temp this a.m. 100.1. Staff assisted patient with meal and had almost 100% of her breakfast. She is Seen and examined sitting in mele-chair, awake, alert, appears flush, smiles, will follow simple commands. Will say several words, does not appear to make much sense however is pleasant. Physical Exam Vital signs: Vital Signs 01/14/18 08:49 01/14/18 13:24 01/14/18 14:30 Temperature Pulse Rate 120 H 120 H 119 H Respiratory Rate 18 26 H 20 Blood Pressure Pulse Oximetry 01/14/18 19:21 01/15/18 05:35 Temperature 36.3 C L Pulse Rate 119 H 110 H Respiratory Rate 20 20 Blood Pressure 124/67 Pulse Oximetry 95 Intake & Output 01/14/18 01/15/18 01/15/18 18:59 06:59 18:59 Intake Total 1540 / 1540 540 / 540 Output Total Balance 1540 / 1540 539 / 539 Intake: IV 1200 / 1200 200 / 200 NS Inj 1,000 ML @ 75 mls/hr IV. 1000 / 1000 CONT .[id number] ELSY Rx#:[id number] Zosyn 4.5 GM Premix 4.5 gm In 200 / 200 100 / 100 100 ml @ 200 mls/hr IV.SIG Q6H ELSY Rx#:[id number] KCl 20 mEq Premix Inj 20 meq In 100 / 100 100 ml @ 50 mls/hr IV.SIG Q2H ELSY Rx#:[id number] Oral 340 / 340 240 / 240 Oral Supplement 100 / 100 Output: Urine Narrative: GENERAL: This is a well-developed,well-nourished overweight female, in no acute distress. Awake and alert appears to be in acute distress. SKIN: Warm and dry, flush. HEENT: Atraumatic. Normocephalic. EOMI. No scleral icterus. No injection or drainage. No nasal bleeding or discharge. Airway patent. NECK: Trachea midline. CARDIOVASCULAR: Tachycardic, no murmur rubs or gallops. RESPIRATORY: Nonlabored. Clear to auscultation. Breath sounds equal bilaterally. GASTROINTESTINAL: Abdomen soft, nondistended. No tenderness to palpation. No guarding. Bowel sounds normal. MUSCULOSKELETAL: Extremities without clubbing or cyanosis. No edema noted on extremities. NEUROLOGICAL: Awake and alert. Follows simple commands. No obvious cranial nerve deficits. Motor grossly within normal limits. Speech is clear with few words. PSYCHIATRIC: Appears calm and cooperative. Insight and judgment poor. Results - Labs CBC & Chem 7: 01/13/18 07:58 01/15/18 08:14 Laboratory Results - last 24 hr 01/14/18 10:40 Sodium 144 Potassium 3.1 L Chloride 110 H Carbon Dioxide 20.8 L Anion Gap 13 BUN 8 Creatinine 0.63 Estimated GFR Greater than 89 Random Glucose 106 Calcium 9.3 Total Creatine Kinase 719 H CK-MB (CK-2) 4.7 H CK-MB (CK-2) % 0.7 Assessment and Plan - Plan This is a 21-year-old female with past medical history significant for schizophrenia, catatonic type, bipolar disorder, cannabis use disorder who was admitted to inpatient psychiatry secondary to mental decompensation with disorganized thought process, bizarre thinking and hyper religiosity after her schizophrenic medications were discontinued by her parents 2 months ago and who has since been admitted to med psych for worsening mental status and bilateral lower extremity edema. Hospitalist services consulted for evaluation and management. Schizophrenia, catatonic type Bipolar disorder -Management per psychiatry Possible aspiration pneumonia CXR reveals basilar airspace disease predominantly on the left, concern for aspiration pneumonia, images reviewed by me -Continue on IV Zosyn and Flagyl. Duonebs scheduled. Acapella and IS. -Past swallow evaluation with recommendations for mechanical soft diet with thin liquids, aspiration precautions. -low grad temp this a.m. O2 saturation stable on room air. - Check CBC, recheck chest xray, close monitoring if worsening consider transferring to medical floor. Mild rhabdomyolysis Hypernatremia, resolved NA 144 Suspect secondary to dehydration/poor oral intake and increased agitation -CK 390-->719-->291, improved. Continue IVF to 100ml/hr due to poor p.o intake. 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 Discussed Condition With: Nursing staff, .
--- NOTE | 2018-01-15 09:10 | P.PNPSY ---
Subjective Remarks: Patient seen and examined with nurse. Chart reviewed. Case discussed with nursing staff. Nurse reports that temp was rechecked this morning and was 100.1F. Nurse notes patient ate most of her breakfast this morning. Case discussed also with midlevel provider from hospitalist service. Patient has not been provided with a 1:1 this morning. I feel this 1:1 is still indicated for fall risk and behavioral redirection. I have notified meteorologist in charge of this deficiency in the expectation that it will be rectified. I find the patient in a mele-chair in the hallway. She is fairly animated and exhibits utilization behavior, for example grabbing forcefully at my hands and rounding papers. She does make some intelligible remarks this morning, although her speech remains largely nonsensical. Affect is labile. No evident side effects from medications. No physical complaints. Vital Signs Temp Pulse Resp BP Pulse Ox 01/15/18 05:35 97.4 F L 110 H 20 124/67 95 01/14/18 19:21 119 H 20 01/14/18 14:30 119 H 20 01/14/18 13:24 120 H 26 H Intake and Output 01/14/18 01/15/18 01/15/18 22:59 06:59 14:59 Intake Total 540 / 540 100 / 100 200 / 200 Output Total Balance 540 / 540 99 / 99 200 / 200 Intake: IV 200 / 200 100 / 100 Zosyn 4.5 GM Premix 4.5 gm In 100 / 100 100 / 100 100 ml @ 200 mls/hr IV.SIG Q6H ELSY Rx#:[id number] KCl 20 mEq Premix Inj 20 meq In 100 / 100 100 ml @ 50 mls/hr IV.SIG Q2H ELSY Rx#:[id number] Oral 240 / 240 200 / 200 Oral Supplement 100 / 100 Output: Urine Labs reviewed. No new labs. BMP and CK ordered for this morning are not yet resulted. PE: Somewhat limited as patient forcefully resists my efforts to examine her. I can appreciate no discernible increased tone UE or LE, nor does she exhibit any tremor, dystonias or dyskinesias. There is no pathologic clonus at the ankle. Review of Systems unobtainable due to mental condition Mental Status Examination Appearance: Disheveled Consciousness: Alert Orientation: Person Motor Activity: Other (As above) Speech: Other (Some intelligible speech) Language: Other (rambling) Fund of Knowledge: Inadequate Attention and Concentration: Easily distracted Memory: Impaired Mood: Anxious Affect: Labile Thought Process & Associations: Disorganized Thought Content: Bizarre thinking Hallucination Type: Other (Internally preoccupied) Delusion Type: None Suicidal Ideation: No (No SI voiced) Homicidal Ideation: No (No HI voiced) Insight: Poor Judgment: Poor Assessment and Plan - Assessment (1) Bipolar affective disorder, currently manic, severe, with psychotic features Code(s): F31.2 - Bipolar disorder, current episode manic severe with psychotic features Status: Acute - Plan Plan: Titrate Zyprexa to 15mg qHS for mood stabilization and psychosis. Discontinue Abilify. Await counselor report re: feasibility of ECT. Catatonia was considered in differential, but behavior seems more consistent with prominent disorganization in setting of decompensated psychosis/mood episode with psychotic features. Follow up labs and trend vitals; I will switch to q4h VS. Hospitalist input appreciated. Ongoing mobilization with PT. Continue ordered 1:1. Continue other medications and care as ordered. Justification for Continued Inpatient Stay: Medication changes. Impairment in reality construction. Impairment in self- care. High risk for decompensation in less restrictive environment. Discharge Planning: Pending psychiatric stabilization. Request Healthcare Surrogate/Guardian Advocate?: Yes
[2018-01-15] MEDS: Nystatin 100,000 UNITS/GM Powder 15 GM Bottle TOPICAL SCH ×2 (09:23→20:46)
[2018-01-15] MEDS: Propranolol 10 MG Tablet PO SCH ×3 (09:25→18:22)
[2018-01-15 10:19] LABS: Anion Gap 13 meq/L (5-15); Blood Urea Nitrogen 4 mg/dL (7-18); Calcium 9.2 mg/dL (8.5-10.1); Chloride 109 meq/L (98-107); Glomerular Filtration Rate Greater Than 89 mL/min (>89); Glucose,Random 93 mg/dL (74-106); Magnesium 2.2 mg/dL (1.5-2.5); Potassium 3.4 meq/L (3.5-5.1); Sodium 142 meq/L (136-145)
[2018-01-15 10:22] LABS: Creatine Kinase 291 U/L (26-192)
[2018-01-15 10:41] LABS: CKMB Percent 1.1 % (0.0-4.0); Creatine Kinase MB 3.1 ng/mL (0.5-3.6)
--- NOTE | 2018-01-15 11:33 | XR ---
EXAM DATE: 01/15/2018 11:28 AM EDT AGE/SEX: 22 years / Female INDICATIONS: Pneumonia. CLINICAL DATA: This is the patient's initial encounter. Patient reports that signs and symptoms have been present for 1 day and indicates a pain score of Nonresponsive. MEDICAL/SURGICAL HISTORY: . none known . none known [place] [facility] [place]. . FINDINGS: Lungs are under aerated with mild prominence cardiac silhouette Minimal parenchymal changes left base . Right lung clear. The portion of the bony skeleton visualized is unremarkable. CONCLUSION: Under aerated with minimal parenchymal changes left base, improved in interval Electronically signed by: Enzo Berg MD 01/15/2018 11:32 AM EDT
[2018-01-15 12:40] LABS: Baso % (Auto) 0.4 % (0.0-2.0); Eos # (Auto) 0.2 th/mm3 (0.0-0.4); Eos % (Auto) 2.7 % (0.0-4.0); Hematocrit 38.8 % (35.0-46.0); Lymph # (Auto) 1.9 th/mm3 (1.0-4.8); Lymph % (Auto) 21.5 % (9.0-44.0); Mean Corpuscular HGB Conc 33.5 % (32.0-36.0); Mean Corpuscular Hemoglobin 31.1 pg (27.0-34.0); Mean Platelet Volume 8.5 fL (7.0-11.0); Mono # (Auto) 0.6 th/mm3 (0.0-0.9); Mono % (Auto) 6.4 % (0.0-8.0); Neut # (Auto) 6.1 th/mm3 (1.8-7.7); Platelet Count 302 th/mm3 (150-450); Red Blood Count 4.17 mil/mm3 (4.00-5.30); Red Cell Distribution Width 13.5 % (11.6-17.2); White Blood Count 8.8 th/mm3 (4.0-11.0)
[2018-01-15] MEDS: Sod Chloride 0.9% Inj 1,000 ML IV.CONT SCH (16:42)
[2018-01-15 19:38] LABS: Bilirubin,Urine Negative (Negative); Clarity,Urine Turbid (Clear); Color,Urine Yellow (Yellw/Straw); Glucose,Urine (UA) Negative (Negative); Leukocyte Esterase,Urine Large (Negative); Mucus,Urine Few /lpf (Occasional); Nitrite,Urine Negative (Negative); Specific Gravity,Urine 1.018 (1.002-1.035); Squamous Epithelial Cell,Urine 4 /hpf (0-5)
[2018-01-15] MEDS: OLANZapine 15 MG ODT Tablet PO SCH (20:45)
[2018-01-16] MEDS: Benzonatate 100 MG Capsule PO PRN (04:03)
--- NOTE | 2018-01-16 08:14 | P.PN ---
Subjective Interval history: Follow-up visit for rhabdomyolysis, hypernatremia, and hypokalemia. Staff reports patient ate well yesterday during meals, drinking fluids. Nurse reports patient did not sleep overnight, no more fevers. Patient is seen and examined in her room lying on the floor with sitter at bedside, she is assisted up to the bed by staff. She smiles and says several words but no complete sentences. Physical Exam Vital signs: Vital Signs 01/15/18 18:06 01/15/18 19:52 01/16/18 05:56 Temperature 36.6 C 36.8 C Pulse Rate 120 H 112 H 122 H Respiratory Rate 16 Blood Pressure 116/79 111/75 Pulse Oximetry 95 98 Intake & Output 01/15/18 01/16/18 01/16/18 18:59 06:59 18:59 Intake Total 860 / 860 480 / 480 Output Total Balance 860 / 860 479 / 479 Intake: IV 100 / 100 Flagyl 500 MG Inj 100 ML @ 100 100 / 100 mls/hr IV.SIG Q8H ELSY Rx#: [id number] Oral 760 / 760 480 / 480 Output: Stool Other: Date of Last Bowel Movement 01/15/18 Narrative: GENERAL: This is a well-developed,well-nourished overweight female, in no acute distress. Awake and alert appears to be in acute distress. SKIN: Warm and dry. HEENT: Atraumatic. Normocephalic. EOMI. No scleral icterus. No injection or drainage. No nasal bleeding or discharge. Airway patent. NECK: Trachea midline. CARDIOVASCULAR: Tachycardic, no murmur rubs or gallops. RESPIRATORY: Nonlabored. Clear to auscultation. Breath sounds equal bilaterally. GASTROINTESTINAL: Abdomen soft, nondistended. No tenderness to palpation. No guarding. Bowel sounds normal. MUSCULOSKELETAL: Extremities without clubbing or cyanosis. No edema noted on extremities. NEUROLOGICAL: Awake and alert. Follows simple commands. No obvious cranial nerve deficits. Motor grossly within normal limits. Speech is clear with few words. PSYCHIATRIC: Appears calm and cooperative. Insight and judgment poor. Results - Labs CBC & Chem 7: 01/15/18 12:21 01/15/18 08:14 Laboratory Results - last 24 hr 01/15/18 01/15/1818 08:14 12:21 17:45 WBC 8.8 RBC 4.17 Hgb 13.0 Hct 38.8 MCV 93.0 MCH 31.1 MCHC 33.5 RDW 13.5 Plt Count 302 MPV 8.5 Neut % (Auto) 69.0 Lymph % (Auto) 21.5 [place] % (Auto) 6.4 Eos % (Auto) 2.7 Baso % (Auto) 0.4 Neut # (Auto) 6.1 Lymph # (Auto) 1.9 [place] # (Auto) 0.6 Eos # (Auto) 0.2 Baso # (Auto) 0.0 WBC Differential . Differential Comment Auto diff final Sodium 142 Potassium 3.4 L Chloride 109 H Carbon Dioxide 20.0 L Anion Gap 13 BUN 4 L Creatinine 0.54 Estimated GFR Greater than 89 Random Glucose 93 Calcium 9.2 Magnesium 2.2 Total Creatine Kinase 291 H CK-MB (CK-2) 3.1 CK-MB (CK-2) % 1.1 Urine Color Yellow Urine Clarity Turbid H Urine pH 7.0 Ur Specific [place] 1.018 Urine Protein Negative Urine Glucose (UA) Negative Urine Ketones 20 Urine Occult Blood Small H Urine Nitrate Negative Urine Bilirubin Negative Urine Urobilinogen Less than 2 Ur Leukocyte Esterase Large H Urine RBC 19 H Urine WBC 43 H Urine WBC Clumps Many H Ur Squamous Epith Cells 4 Urine Mucus Few H Micro UA Comment Culture indicated Urine Culture Comments Culture indicated - Imaging Impressions Chest X-Ray 01/15/18 00:00 CONCLUSION: Under aerated with minimal parenchymal changes left base, improved in interval Assessment and Plan - Plan This is a 21-year-old female with past medical history significant for schizophrenia, catatonic type, bipolar disorder, cannabis use disorder who was admitted to inpatient psychiatry secondary to mental decompensation with disorganized thought process, bizarre thinking and hyper religiosity after her schizophrenic medications were discontinued by her parents 2 months ago and who has since been admitted to med psych for worsening mental status and bilateral lower extremity edema. Hospitalist services consulted for evaluation and management. Schizophrenia, catatonic type Bipolar disorder -Management per psychiatry Possible aspiration pneumonia CXR reveals basilar airspace disease predominantly on the left, concern for aspiration pneumonia, images reviewed by me -Continue on IV Zosyn and Flagyl. Duonebs scheduled. Acapella and IS. -Past swallow evaluation with recommendations for mechanical soft diet with thin liquids, aspiration precautions. -Low-grade temperature on 01/15, CBC stable, chest x-ray with under aerated lungs, minimal parenchymal changes in the left lung base, improved. -No temps overnight or this morning. -UA collected yesterday, positive, await culture and sensitivity. -Patient with no fever in 24 hours, discontinue IV Flagyl and Zosyn, switch over to p.o Augmentin, to complete 1 week course. Mild rhabdomyolysis Hypernatremia, resolved NA 144 Suspect secondary to dehydration/poor oral intake and increased agitation -CK 390-->719-->291, improved. Patient eating and drinking fluids better, discontinue IV fluids. -Recheck CK in the next 2 days Hypokalemia - s/p replacement IV replacement 01/14 -Continue KCl p.o. 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 DVT prophylaxis -Patient is ambulatory with assistance, discussed with nursing staff to encourage ambulation.
[2018-01-16] MEDS: Amoxicillin/Clavulanate 875/125 MG Tablet PO SCH ×2 (10:13→20:21)
[2018-01-16] MEDS: Nystatin 100,000 UNITS/GM Powder 15 GM Bottle TOPICAL SCH ×2 (10:14→20:21)
--- NOTE | 2018-01-16 11:23 | P.PNPSY ---
Subjective Remarks: Patient seen and examined with sitter on patient's return from fresh air. Chart reviewed. Case discussed with nursing staff. Patient is reportedly improving. She is more appropriately interactive and was able to tolerate fresh air today. She also is eating better per report. Nurse reports patient' s father was requesting a call, but he is not [place]. Case discussed with counselor. On my exam, patient is more organized today versus yesterday. When I observe that I had been looking for the patient on the unit while she was out for fresh air, she observes in a jocular fashion "are you following me?" She appears less internally stimulated. Less utilization behavior. Smiling more appropriately to the social context today. No evident medication side effects. No physical complaints. Vital Signs Temp Pulse Resp BP Pulse Ox 01/16/18 05:56 98.3 F 122 H 16 111/75 98 01/15/18 19:52 112 H 18 01/15/18 18:06 97.8 F 120 H 18 116/79 95 Intake and Output 01/15/18 01/16/18 01/16/18 22:59 06:59 14:59 Intake Total 120 / 120 480 / 480 480 / 480 Output Total Balance 120 / 120 479 / 479 480 / 480 Intake: Oral 120 / 120 480 / 480 480 / 480 Output: Stool Other: Date of Last Bowel Movement 01/15/18 Laboratory Results - last 24 hr 01/15/18 01/15/18 12:21 17:45 WBC 8.8 RBC 4.17 Hgb 13.0 Hct 38.8 MCV 93.0 MCH 31.1 MCHC 33.5 RDW 13.5 Plt Count 302 MPV 8.5 Neut % (Auto) 69.0 Lymph % (Auto) 21.5 [place] % (Auto) 6.4 Eos % (Auto) 2.7 Baso % (Auto) 0.4 Neut # (Auto) 6.1 Lymph # (Auto) 1.9 [place] # (Auto) 0.6 Eos # (Auto) 0.2 Baso # (Auto) 0.0 WBC Differential . Differential Comment Auto diff final Urine Color Yellow Urine Clarity Turbid H Urine pH 7.0 Ur Specific [place] 1.018 Urine Protein Negative Urine Glucose (UA) Negative Urine Ketones 20 Urine Occult Blood Small H Urine Nitrate Negative Urine Bilirubin Negative Urine Urobilinogen Less than 2 Ur Leukocyte Esterase Large H Urine RBC 19 H Urine WBC 43 H Urine WBC Clumps Many H Ur Squamous Epith Cells 4 Urine Mucus Few H Micro UA Comment Culture indicated Urine Culture Comments Culture indicated Labs reviewed. Urinalysis results noted. Urine culture and sensitivities pending. I note that the hospitalist has started the patient on oral Augmentin. Impressions Chest X-Ray 01/15/18 00:00 CONCLUSION: Under aerated with minimal parenchymal changes left base, improved in interval I left a voicemail for patient's brother Ravi today both to provide an update on patient's progress and also to obtain consent from brother as patient's guardian advocate to reach out to patient's father who was requesting a call. Review of Systems unobtainable due to mental condition Mental Status Examination Appearance: Other (Grooming somewhat improved today) Consciousness: Alert Orientation: Person Motor Activity: Other (No motor abnormalities noted) Speech: Other (Much more intelligible today) Language: Other (Speaking in phrases and simple sentences) Fund of Knowledge: Inadequate Attention and Concentration: Easily distracted Memory: Impaired Mood: Other (Calm) Affect: Euthymic (Childlike) Thought Process & Associations: Disorganized Thought Content: Bizarre thinking Hallucination Type: Other (A little less internally stimulated) Delusion Type: None Suicidal Ideation: No (No SI voiced) Homicidal Ideation: No (No HI voiced) Insight: Poor Judgment: Poor Assessment and Plan - Assessment (1) Bipolar affective disorder, currently manic, severe, with psychotic features Code(s): F31.2 - Bipolar disorder, current episode manic severe with psychotic features Status: Acute - Plan Plan: Patient seems improved today. I will continue Zyprexa 15mg qHS tonight with plans for further titration tomorrow. Hospitalist input noted and appreciated. PT/ST input noted and appreciated. Continue to monitor on medical psychiatric unit. Continue other medications and care as ordered. Justification for Continued Inpatient Stay: Medication changes planned. Impairment in reality construction. Impairment in self-care. High risk for decompensation in less restrictive environment. Discharge Planning: Pending psychiatric stabilization Request Healthcare Surrogate/Guardian Advocate?: Yes
--- NOTE | 2018-01-16 11:46 | P.DIET ---
Nutritional Evaluation Type of nutrition evaluation: follow-up Nutrition consult regarding: Diet Evaluation Nutrition screening: Poor PO Intake, [place] [facility] [place] Subjective Barriers to Nutrition: Refuses to eat at times Oral Diet Tolerance Assessment Indicates: Swallowing problems Objective - Diagnosis Unspecified Psychosis - Objective % IBW: 147 Body Weight Used for Calculations: IBW Energy Needs - Lower Range (kCal/kg): 28 Energy Needs - Upper Range (kCal/kg): 33 Lower Limit kCal/kg (kCals): 1,591 Upper Limit kCal/kg (kCals): 1,874 Lower Limit Protein Factor (Grams per Kg): 1.4 Upper Limit Protein Factor (Grams per Kg): 1.6 Lower Protein Needs (Protein): 80 Upper Protein Needs (Protein): 91 Fluid Factor (ml/kg): 33 Estimated Fluid Needs (ml): 1,874 Dietitian Reviewed in Medical Record: Current diet, Curent medications, Intake & Output, Labs Diet Order: [facility] Soft Oral Diet Intake Amount: Fair 50-75% Speech Therapy Recommendations: Yes (Regular) Objective Comments: PMH: Schizophrenia-catatonic type, bipolar DO, Cannabis Use DO HgA1C 5.0 Meds Include: Abilify, Ativan, Zyprexa, Ambien [facility](01/15) Feeding - Current PO Supplement Current Supplement: Ensure Original Current Supplement Flavor: Chocolate Current Frequency of Supplement: Three times a day Current kCals Provided by Supplement: 250 Current Protein Provided by Supplement: 9 - kCal Count Day 1 kCal Intake: 1,640 Day 1 Protein Intake: 58 Day 2 kCal Intake: 410 Day 2 Protein Intake: 19 Day 3 kCal Intake: 673 Day 3 Protein Intake: 39 kCal Comments: Kcal Count Day#1: pt NPO for breakfast Kcal Count Day#2: No meal slips collected for dinner; no documentation for dinner meal in EMR Assessment Assessment: Pt is at nutritional risk r/t poor po intake. Calorie Count 01/13 through 01/15 w/ improved po intake 50% of assessed needs. Continue chocolate milk and milk. Change Ensure tid to Ensure Enlive tid(= 350 kcal and 20g Protein per serving). Wt changes noted. Dietitian following. Recommendations: 1. INCOMPLETE Calorie Count 01/10 through 01/12 w/meal slips not collected and pt NPO 01/12 through breakfast today. 2. Restart Calorie Count today, 01/13 through 01/15 w/Nutrition Recs to follow 01/16 3. Continue chocolate milk, milk and Ensure tid Dietitian to Monitor: Lab values, Supplement acceptance, Intake & Output, Weight change, PO Intake
[2018-01-16] MEDS: OLANZapine 15 MG ODT Tablet PO SCH (20:21)
[2018-01-16] MEDS: LORazepam 1 MG Tablet PO PRN (22:39)
[2018-01-17] MEDS: Amoxicillin/Clavulanate 875/125 MG Tablet PO SCH ×2 (08:33→21:12)
[2018-01-17] MEDS: Metoprolol Tartrate 25 MG Tablet PO SCH ×2 (08:35→21:13)
[2018-01-17] MEDS: Nystatin 100,000 UNITS/GM Powder 15 GM Bottle TOPICAL SCH ×2 (08:35→21:13)
--- NOTE | 2018-01-17 08:54 | P.PNPSY ---
Subjective Remarks: Patient seen and examined with 1:1 sitter at bedside. Chart reviewed. Case discussed with nursing staff. Patient noted to be more hyperkinetic today. Case discussed in treatment team. On my examination, I find the patient wandering around her room. She continues to exhibit utilization behavior, turning the lights on and off and putting the shade in her room up and down. She tries to grab at this provider, but she is easily redirected. Speech is more comprehensible today but content is difficult to follow. For example, she exclaims "best friends! ABC!" No evident medication side effects. No physical complaints. I added a daytime dose of Zyprexa and checked back with nurse later in the day. Nurse reports patient is calmer now and less hyperkinetic. Vital Signs Temp Pulse Resp BP Pulse Ox 01/17/18 05:38 98.7 F 125 H 18 136/74 95 01/16/18 21:15 115 H 18 01/16/18 18:25 98.2 F 126 H 22 150/70 H 95 Intake and Output 01/16/18 01/17/18 01/17/18 22:59 06:59 14:59 Intake Total 720 / 720 Balance 720 / 720 Intake: Oral 720 / 720 Other: Date of Last Bowel Movement 01/15/18 Labs reviewed. No new labs. Review of Systems unobtainable due to mental condition Mental Status Examination Appearance: Other (Fair grooming.) Consciousness: Alert Orientation: Person Motor Activity: Other (Somewhat hyperkinetic. No other abnormal motor movements noted.) Speech: Rapid Language: Other (Again speaking in phrases and simple sentences) Fund of Knowledge: Inadequate Attention and Concentration: Easily distracted Memory: Impaired Mood: Anxious Affect: Euthymic (Childlike) Thought Process & Associations: Disorganized Thought Content: Bizarre thinking Hallucination Type: Other (Somewhat internally stimulated) Delusion Type: None Suicidal Ideation: No (No SI voiced) Homicidal Ideation: No (No HI voiced) Insight: Poor Judgment: Poor Assessment and Plan - Assessment (1) Bipolar affective disorder, currently manic, severe, with psychotic features Code(s): F31.2 - Bipolar disorder, current episode manic severe with psychotic features Status: Acute - Plan Plan: Add daytime dose of Zyprexa 5mg qAM and 15mg qHS for mood stabilization and psychosis. Patient does seem to be improving with this agent. Please consider further titration of this agent over the weekend, up to 30mg total daily dose. I did consider whether hyperkinetic behavior could be due to akathisia, but this seems less likely as patient seems to have improved with titration of the antipsychotic today. Hospitalist input noted and appreciated. Follow-up laboratories ordered by the hospitalist for tomorrow morning. It is possible that increased activity today will lead to elevated CK and so further IVF may be required. Continue to monitor on the medical psychiatric unit. Continue other medications and care as ordered. Justification for Continued Inpatient Stay: Medication changes. High risk for decompensation in less restrictive environment. Discharge Planning: Pending psychiatric stabilization. Request Healthcare Surrogate/Guardian Advocate?: Yes
--- NOTE | 2018-01-17 09:30 | P.PN ---
Subjective Interval history: Follow-up visit rhabdomyolysis, tachycardia, and aspiration pneumonia. Patient is seen wandering around [facility] psych unit with sitter close by. Patient is more verbal today and increasingly active, speech is clear although difficult to follow and understand. Nurse reports patient continues to be tachycardic, spitting out medications when these are crushed and put into pudding or applesauce. Sitter reports patient ate about 50% breakfast, patient was noted to be asking for water several times while I was present in psychiatric unit. Physical Exam Vital signs: Vital Signs 01/16/18 18:25 01/16/18 21:15 01/17/18 05:38 Temperature 36.8 C 37.1 C Pulse Rate 126 H 115 H 125 H Respiratory Rate Blood Pressure 150/70 H 136/74 Pulse Oximetry 95 95 Intake & Output 01/16/18 01/17/18 01/17/18 18:59 06:59 18:59 Intake Total 1200 / 1200 Balance 1200 / 1200 Intake: Oral 1200 / 1200 Other: Date of Last Bowel Movement 01/15/18 Narrative: GENERAL: This is a well-developed,well-nourished overweight female, in no acute distress. Ambulating in psychiatric call. SKIN: Warm and dry. HEENT: Atraumatic. Normocephalic. EOMI. No scleral icterus. No injection or drainage. No nasal bleeding or discharge. Airway patent. NECK: Trachea midline. CARDIOVASCULAR: Tachycardic, no murmur rubs or gallops. RESPIRATORY: Nonlabored. Clear to auscultation. Breath sounds equal bilaterally. GASTROINTESTINAL: Abdomen soft, nondistended. No tenderness to palpation. No guarding. Bowel sounds normal. MUSCULOSKELETAL: Extremities without clubbing or cyanosis. Trace lower extremity edema noted. NEUROLOGICAL: Awake and alert, increasingly active and pacing around the workman. Follows simple commands. No obvious cranial nerve deficits. Motor grossly within normal limits. Speech is clear. PSYCHIATRIC: Insight and judgment poor. Results - Labs CBC & Chem 7: 01/15/18 12:21 01/15/18 08:14 Microbiology 01/15/18 17:45 Clean Catch Urine Urine Culture - Preliminary No growth in 24 hours Assessment and Plan - Plan This is a 21-year-old female with past medical history significant for schizophrenia, catatonic type, bipolar disorder, cannabis use disorder who was admitted to inpatient psychiatry secondary to mental decompensation with disorganized thought process, bizarre thinking and hyper religiosity after her schizophrenic medications were discontinued by her parents 2 months ago and who has since been admitted to med psych for worsening mental status and bilateral lower extremity edema. Hospitalist services consulted for evaluation and management. Schizophrenia, catatonic type Bipolar disorder -Management per psychiatry Possible aspiration pneumonia CXR reveals basilar airspace disease predominantly on the left, concern for aspiration pneumonia. -Initially treated with IV Zosyn and Flagyl. Duonebs scheduled. Acapella and IS. Transitioned over to p.o. Augmentin to complete on 01/21. -Past swallow evaluation with recommendations for mechanical soft diet with thin liquids, aspiration precautions. -No cough present, afebrile, oxygen saturation stable on room air. -UA collected yesterday, no growth in 24 hours. Mild rhabdomyolysis Hypernatremia, resolved NA 144 Suspect secondary to dehydration/poor oral intake and increased agitation -CK 390-->719-->291, improved. Patient eating and drinking fluids better, IV fluids have been discontinued. -Patient is much more active today, recheck CK tomorrow. Hypokalemia - s/p replacement IV replacement 01/14 -Continue KCl p.o. replacement, recheck BMP tomorrow. 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 -continue with PT -continue to monitor Tachycardia7/9 bradycardic, heart rate 56 Patient does not appear to have any chest pain complaints EKG shows sinus tach 7/6 HR 140, 7/7 HR 147 7/9 bradycardic, heart rate 56 7/10 HR 120 -Heart rate in 120s, likely psychiatrically related, switch over to metoprolol 25 mg twice daily, hopefully she will be more agreeable to taking this twice a day as opposed to propanolol which was 3 times a day -Monitor heart rate and blood pressure and adjust accordingly. DVT prophylaxis -Patient is ambulatory. Discussed Condition With: Sitter and nurse.
[2018-01-17] MEDS: OLANZapine 15 MG ODT Tablet PO SCH (21:13)
[2018-01-18] MEDS: Metoprolol Tartrate 25 MG Tablet PO SCH ×2 (08:07→20:30)
[2018-01-18] MEDS: Amoxicillin/Clavulanate 875/125 MG Tablet PO SCH ×2 (08:11→20:30)
[2018-01-18] MEDS: Nystatin 100,000 UNITS/GM Powder 15 GM Bottle TOPICAL SCH ×2 (08:30→20:30)
[2018-01-18 09:01] LABS: Anion Gap 11 meq/L (5-15); Blood Urea Nitrogen 9 mg/dL (7-18); Calcium 9.3 mg/dL (8.5-10.1); Carbon Dioxide 21.6 meq/L (21.0-32.0); Chloride 109 meq/L (98-107); Glomerular Filtration Rate Greater Than 89 mL/min (>89); Glucose,Random 124 mg/dL (74-106); Potassium 3.8 meq/L (3.5-5.1); Sodium 142 meq/L (136-145)
[2018-01-18 09:09] LABS: Creatine Kinase 628 U/L (26-192)
--- NOTE | 2018-01-18 09:22 | P.PN ---
Subjective Interval history: Follow-up visit for rhabdomyolysis, hypernatremia, hypokalemia. Patient is seen and examined ambulating in the unit, continues to be very restless, ambulating around unit. Does not appear to be in any acute distress or pain, smiles, saying yes and no but very seldomly. Nurse reports that patient did not sleep overnight, did manage to take medications today. Physical Exam Vital signs: Vital Signs 01/17/18 18:28 01/18/18 05:36 Temperature 37.4 C Pulse Rate 157 H 130 H Respiratory Rate 18 20 Blood Pressure 173/98 H 152/88 H Pulse Oximetry 96 97 Intake & Output 01/17/18 01/18/18 01/18/18 18:59 06:59 18:59 Intake Total 1200 / 1200 25 / 25 240 / 240 Balance 1200 / 1200 25 / 25 240 / 240 Intake: Oral 1200 / 1200 25 / 25 240 / 240 Other: # Voids 1 # Incontinent Voids 1 Date of Last Bowel Movement 01/15/18 # Incontinent Bowel Movements 1 Narrative: GENERAL: This is a well-developed,well-nourished overweight female, in no acute distress. Ambulating in psychiatric call. SKIN: Warm and dry. HEENT: Atraumatic. Normocephalic. EOMI. No scleral icterus. No injection or drainage. No nasal bleeding or discharge. Airway patent. NECK: Trachea midline. CARDIOVASCULAR: Tachycardic, no murmur rubs or gallops. RESPIRATORY: Nonlabored. Clear to auscultation. Breath sounds equal bilaterally. GASTROINTESTINAL: Abdomen soft, nondistended. No tenderness to palpation. No guarding. Bowel sounds normal. MUSCULOSKELETAL: Extremities without clubbing or cyanosis. Trace lower extremity edema noted. NEUROLOGICAL: Awake and alert, increasingly active and pacing around the workman. Follows simple commands. No obvious cranial nerve deficits. Motor grossly within normal limits. Speech is clear. PSYCHIATRIC: Insight and judgment poor. Results - Labs CBC & Chem 7: 01/15/18 12:21 01/18/18 08:29 Laboratory Results - last 24 hr 01/18/18 08:29 Sodium 142 Potassium 3.8 Chloride 109 H Carbon Dioxide 21.6 Anion Gap 11 BUN 9 Creatinine 0.72 Estimated GFR Greater than 89 Random Glucose 124 H Calcium 9.3 Total Creatine Kinase 628 H Microbiology 01/15/18 17:45 Clean Catch Urine Urine Culture - Final No growth in 48 hours Assessment and Plan - Plan This is a 21-year-old female with past medical history significant for schizophrenia, catatonic type, bipolar disorder, cannabis use disorder who was admitted to inpatient psychiatry secondary to mental decompensation with disorganized thought process, bizarre thinking and hyper religiosity after her schizophrenic medications were discontinued by her parents 2 months ago and who [facility] status and bilateral lower extremity edema. Hospitalist services consulted for evaluation and management. Schizophrenia, catatonic type Bipolar disorder -Management per psychiatry Possible aspiration pneumonia CXR reveals basilar airspace disease predominantly on the left, concern for aspiration pneumonia. -Initially treated with IV Zosyn and Flagyl. Duonebs scheduled. Acapella and IS. Transitioned over to p.o. Augmentin to complete on 01/21. -Past swallow evaluation with recommendations for mechanical soft diet with thin liquids, aspiration precautions. -No cough present, afebrile, oxygen saturation stable on room air. -UA collected yesterday, no growth in 24 hours. Mild rhabdomyolysis Hypernatremia, resolved NA 144 Suspect secondary to dehydration/poor oral intake and increased agitation -CK 390-->719-->291, improved. Patient eating and drinking fluids better, IV fluids have been discontinued. -CK level this morning once again elevated now 628, discussed with nursing staff, patient drinking fluids, will recheck CK later today. Will need to initiate IV hydration if still elevated. Hypokalemia - s/p replacement IV replacement 01/14 -Continue KCl p.o. 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 -continue with PT -continue to monitor Tachycardia7/9 bradycardic, heart rate 56 Patient does not appear to have any chest pain complaints EKG shows sinus tach 7/6 HR 140, 7/7 HR 147 7/9 bradycardic, heart rate 56 7/10 HR 120 -Heart rate in 130s, likely psychiatrically related, switch over to metoprolol 25 mg twice daily, patient did take medications this morning. -Monitor heart rate and blood pressure and adjust accordingly. DVT prophylaxis -Patient is ambulatory. Discussed Condition With: Discussed with nursing staff.
[2018-01-18] MEDS ORDERED: Sod Chloride 0.9% Inj 1,000 ML IV.CONT SCH (10:00)
[2018-01-18 10:08] LABS: CKMB Percent 1.6 % (0.0-4.0); Creatine Kinase MB 10.2 ng/mL (0.5-3.6)
[2018-01-18] MEDS: LORazepam 1 MG Tablet PO PRN ×2 (10:32→17:09)
--- NOTE | 2018-01-18 16:04 | P.PNPSY ---
Subjective Remarks: Patient was seen and case discussed with nursing. Patient is pleasant and cooperative with exam. Per nursing, patient has been displaying signs of harmeet. She has been hyperverbal, elated and internally stimulated with excess energy. Otherwise behaving well on the unit without need for ETO's per nursing Mental Status Examination Appearance: Other (Fair grooming.) Consciousness: Alert Orientation: Person Motor Activity: Other (Somewhat hyperkinetic. No other abnormal motor movements noted.) Speech: Rapid Language: Other (Again speaking in phrases and simple sentences) Fund of Knowledge: Inadequate Attention and Concentration: Easily distracted Memory: Impaired Mood: Anxious Affect: Euthymic (Childlike) Thought Process & Associations: Disorganized Thought Content: Bizarre thinking Hallucination Type: Other (Somewhat internally stimulated) Delusion Type: None Suicidal Ideation: No (No SI voiced) Suicidal Plan: No Suicidal Intention: No Homicidal Ideation: No (No HI voiced) Homicidal Plan: No Homicidal Intention: No Insight: Poor Judgment: Poor Assessment and Plan - Assessment (1) Bipolar affective disorder, currently manic, severe, with psychotic features Code(s): F31.2 - Bipolar disorder, current episode manic severe with psychotic features Status: Acute - Plan Plan: Continue current treatment plan Justification for Continued Inpatient Stay: Patient would decompensate in a less restrictive setting Request Healthcare Surrogate/Guardian Advocate?: Yes
[2018-01-18 18:38] LABS: CKMB Percent 1.4 % (0.0-4.0)
[2018-01-18] MEDS: OLANZapine 15 MG ODT Tablet PO SCH (20:30)
--- NOTE | 2018-01-19 08:35 | P.PN ---
Subjective Interval history: Follow-up visit for rhabdomyolysis, hypernatremia, hypokalemia. Patient did sleep some yesterday afternoon and woke up to eat dinner. She also slept overnight, this morning is very restless, walking around the workman, yelling out and trying to enter patient's rooms. She is examined in her room, only saying a few words. She is very restless, and requiring constant redirection. Physical Exam Vital signs: Vital Signs 01/18/18 18:44 Temperature 36.9 C Pulse Rate 144 H Respiratory Rate 20 Pulse Oximetry 97 Intake & Output 01/18/18 01/19/18 01/19/18 18:59 06:59 18:59 Intake Total 1440 / 1440 848 / 848 Balance 1440 / 1440 848 / 848 Intake: Oral 1440 / 1440 848 / 848 Other: # Voids 1 Date of Last Bowel Movement 01/15/18 01/15/18 Narrative: GENERAL: This is a well-developed,well-nourished overweight female, in no acute distress. Ambulating in psychiatric call, restless. SKIN: Warm and dry. HEENT: Atraumatic. Normocephalic. EOMI. No scleral icterus. No injection or drainage. No nasal bleeding or discharge. Airway patent. NECK: Trachea midline. CARDIOVASCULAR: Tachycardic, no murmur rubs or gallops. RESPIRATORY: Nonlabored. Clear to auscultation. Breath sounds equal bilaterally. GASTROINTESTINAL: Abdomen soft, nondistended. No tenderness to palpation. No guarding. Bowel sounds normal. MUSCULOSKELETAL: Extremities without clubbing or cyanosis. Trace lower extremity edema noted. NEUROLOGICAL: Awake and alert, increasingly active and pacing around the workman. Difficulty following commands. No obvious cranial nerve deficits. Motor grossly within normal limits. Speech is clear. PSYCHIATRIC: Insight and judgment poor. Results - Labs CBC & Chem 7: 01/15/18 12:21 01/18/18 08:29 Laboratory Results - last 24 hr 01/18/18 01/18/18 08:29 17:25 Sodium 142 Potassium 3.8 Chloride 109 H Carbon Dioxide 21.6 Anion Gap 11 BUN 9 Creatinine 0.72 Estimated GFR Greater than 89 Random Glucose 124 H Calcium 9.3 Total Creatine Kinase 628 H 429 H CK-MB (CK-2) 10.2 H 6.0 H CK-MB (CK-2) % 1.6 1.4 Assessment and Plan - Plan This is a 21-year-old female with past medical history significant for schizophrenia, catatonic type, bipolar disorder, cannabis use disorder who was admitted to inpatient psychiatry secondary to mental decompensation with disorganized thought process, bizarre thinking and hyper religiosity after her schizophrenic medications were discontinued by her parents 2 months ago and who has since been admitted to [facility] for worsening mental status and bilateral lower extremity edema. Hospitalist services consulted for evaluation and management. Schizophrenia, catatonic type Bipolar disorder -Management per psychiatry Possible aspiration pneumonia CXR reveals basilar airspace disease predominantly on the left, concern for aspiration pneumonia. -Initially treated with IV Zosyn and Flagyl. Duonebs scheduled. Acapella and IS. Transitioned over to p.o. Augmentin to complete on 01/21. -Past swallow evaluation with recommendations for mechanical soft diet with thin liquids, aspiration precautions. -No cough present, afebrile, oxygen saturation stable on room air. -UA collected yesterday, no growth in 24 hours. Mild rhabdomyolysis Hypernatremia, resolved NA 144 Suspect secondary to dehydration/poor oral intake and increased agitation -CK 628-->429 increasingly active today and restless, recheck tomorrow. - Patient pulling IV out. Hypokalemia - s/p replacement IV replacement 01/14 -Continue KCl p.o. 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 -continue with PT -continue to monitor Tachycardia7/9 bradycardic, heart rate 56 Patient does not appear to have any chest pain complaints EKG shows sinus tach -Ongoing tachycardia, she has been compliant with metoprolol. Increase Metoprolol to 50mg BID -Monitor heart rate and blood pressure and adjust accordingly. DVT prophylaxis -Patient is ambulatory. Discussed Condition With: Nursing staff and tech.
[2018-01-19] MEDS: Metoprolol Tartrate 25 MG Tablet PO SCH (08:54)
--- NOTE | 2018-01-19 14:14 | P.PNPSY ---
Subjective Remarks: Patient was seen and case discussed with nursing. Patient remains loose and disorganized. Per nursing, she was dancing on her toes and yelling out, exit seeking. She received IM Ativan this afternoon before our visit. She is floridly psychotic and responding to internal stimuli. Mental Status Examination Appearance: Other (Fair grooming.) Consciousness: Alert Orientation: Person Motor Activity: Other (Somewhat hyperkinetic. No other abnormal motor movements noted.) Speech: Slow Language: Other (Again speaking in phrases and simple sentences) Fund of Knowledge: Inadequate Attention and Concentration: Easily distracted Memory: Impaired Mood: Anxious Affect: Euthymic (Childlike) Thought Process & Associations: Loose associations, Disorganized Thought Content: Bizarre thinking Hallucination Type: Other (Somewhat internally stimulated) Delusion Type: None Suicidal Ideation: No (No SI voiced) Suicidal Plan: No Suicidal Intention: No Homicidal Ideation: No (No HI voiced) Homicidal Plan: No Homicidal Intention: No Insight: Poor Judgment: Poor Assessment and Plan - Assessment (1) Bipolar affective disorder, currently manic, severe, with psychotic features Code(s): F31.2 - Bipolar disorder, current episode manic severe with psychotic features Status: Acute - Plan Plan: Continue current treatment plan Justification for Continued Inpatient Stay: Patient would decompensate in a less restrictive setting Request Healthcare Surrogate/Guardian Advocate?: Yes
[2018-01-19] MEDS: Amoxicillin/Clavulanate 875/125 MG Tablet PO SCH ×2 (16:33→20:59)
[2018-01-19] MEDS: Nystatin 100,000 UNITS/GM Powder 15 GM Bottle TOPICAL SCH ×2 (16:34→21:38)
[2018-01-19] MEDS: Metoprolol Tartrate 50 MG Tablet PO SCH ×2 (16:34→20:59)
[2018-01-19] MEDS: OLANZapine 15 MG ODT Tablet PO SCH (20:59)
[2018-01-19] MEDS: LORazepam 1 MG Tablet PO PRN (20:59)
--- NOTE | 2018-01-20 08:39 | P.PN ---
Subjective Interval history: Follow-up visit for rhabdomyolysis, hypernatremia, hypokalemia. Patient is seen ambulating in psychiatry halls, as soon as I enter she approaches me and attempts to grab at my water. Sitter who is with patient notes patient has been increasingly agitated, patient did sleep overnight for 4 hours and drink all of her fluids on her breakfast tray as well as part of her breakfast. Physical Exam Vital signs: Vital Signs 01/19/18 17:48 01/20/18 06:00 Temperature 37.3 C 36.6 C Pulse Rate 137 H 138 H Respiratory Rate 20 20 Blood Pressure 116/86 134/56 L Pulse Oximetry 96 93 L Intake & Output 01/19/18 01/20/18 01/20/18 18:59 06:59 18:59 Intake Total 880 / 880 340 / 340 720 / 720 Balance 880 / 880 340 / 340 720 / 720 Intake: Oral 880 / 880 240 / 240 720 / 720 Oral Supplement 100 / 100 Other: # Voids 4 2 Date of Last Bowel Movement 01/15/18 01/15/18 # Bowel Movements 1 Narrative: GENERAL: This is a well-developed,well-nourished overweight female, in no acute distress. Ambulating in psychiatric call, restless. SKIN: Warm and dry. HEENT: Atraumatic. Normocephalic. EOMI. No scleral icterus. No injection or drainage. No nasal bleeding or discharge. Airway patent. NECK: Trachea midline. CARDIOVASCULAR: Tachycardic, no murmur rubs or gallops. RESPIRATORY: Nonlabored. Clear to auscultation. Breath sounds equal bilaterally. GASTROINTESTINAL: Abdomen soft, nondistended. No tenderness to palpation. No guarding. Bowel sounds normal. MUSCULOSKELETAL: Extremities without clubbing or cyanosis. Trace lower extremity edema noted. NEUROLOGICAL: Awake and alert, increasingly active and pacing around the workman. Difficulty following commands. No obvious cranial nerve deficits. Motor grossly within normal limits. Speech is clear. PSYCHIATRIC: Insight and judgment poor. Results - Labs CBC & Chem 7: 01/15/18 12:21 01/18/18 08:29 Assessment and Plan - Plan This is a 21-year-old female with past medical history significant for schizophrenia, catatonic type, bipolar disorder, cannabis use disorder who was admitted to inpatient psychiatry secondary to mental decompensation with disorganized thought process, bizarre thinking and hyper religiosity after her schizophrenic medications were discontinued by her parents 2 months ago and who has since been admitted to med psych for worsening mental status and bilateral lower extremity edema. Hospitalist services consulted for evaluation and management. Schizophrenia, catatonic type Bipolar disorder -Management per psychiatry Possible aspiration pneumonia CXR reveals basilar airspace disease predominantly on the left, concern for aspiration pneumonia. -Initially treated with IV Zosyn and Flagyl. Duonebs scheduled. Acapella and IS. Transitioned over to p.o. Augmentin to complete on 01/21. -Past swallow evaluation with recommendations for mechanical soft diet with thin liquids, aspiration precautions. -No cough present, afebrile, oxygen saturation stable on room air. -UA collected, no growth in 24 hours. Mild rhabdomyolysis Hypernatremia, resolved NA 144 Suspect secondary to dehydration/poor oral intake and increased agitation -CK 628-->429 increasingly active pending CK today. - Patient pulling IV out. Hypokalemia - s/p replacement IV replacement 01/14 -Continue KCl p.o. 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 -continue with PT -continue to monitor Tachycardia01/13 bradycardic, heart rate 56 Patient does not appear to have any chest pain complaints EKG shows sinus tach -Ongoing tachycardia, she has been compliant with metoprolol. Increase Metoprolol to 50mg BID. -Tachycardia secondary to restlessness. DVT prophylaxis -Patient is ambulatory. Discussed Condition With: Discussed with comfort and RN.
[2018-01-20] MEDS: Nystatin 100,000 UNITS/GM Powder 15 GM Bottle TOPICAL SCH ×2 (09:20→13:09)
[2018-01-20] MEDS: Metoprolol Tartrate 50 MG Tablet PO SCH ×3 (09:20→21:00)
[2018-01-20] MEDS: Amoxicillin/Clavulanate 875/125 MG Tablet PO SCH ×3 (09:20→21:00)
--- NOTE | 2018-01-20 12:16 | P.PNPSY ---
Subjective Remarks: Patient seen and examined with a sitter at the bedside. Chart reviewed. I note that the patient ate 25% of breakfast, 100% of lunch and 50% of dinner yesterday. Case discussed with nursing staff. Case discussed with counselor. Counselor has investigated feasibility of ECT. As patient is without payer source, direct referral to facility where ECT is performed is not workable. Counselor is now investigating whether there are facilities that accept ECT cases pro jason. On my exam today, patient is sitting eating her lunch. Speech is a little more comprehensible. versus before the weekend. Affect is labile. She remains internally stimulated. No evident side effects from medications. No physical complaints. Vital Signs Temp Pulse Resp BP Pulse Ox 01/20/18 06:00 97.9 F 138 H 20 134/56 L 93 L 01/19/18 17:48 99.2 F 137 H 20 116/86 96 Intake and Output 01/20/18 01/20/18 01/20/18 06:59 14:59 22:59 Intake Total 1740 / 1740 Balance 1740 / 1740 Intake: Oral 1740 / 1740 Other: # Voids 2 Date of Last Bowel Movement 01/15/18 # Bowel Movements 1 Laboratory Results - last 24 hr 01/20/18 12:10 Total Creatine Kinase 483 H CK-MB (CK-2) 4.0 H CK-MB (CK-2) % 0.8 Labs reviewed. CK oscillating in the mid triple digits without evidence of renal compromise. Mild tachycardia likely related to psychotic agitation. Review of Systems unobtainable due to mental condition Mental Status Examination Appearance: Other (Fair grooming.) Consciousness: Alert Orientation: Person Motor Activity: Other (No motor abnormalities noted) Speech: Other (Somewhat rapid) Language: Other (Again speaking in phrases and simple sentences) Fund of Knowledge: Inadequate Attention and Concentration: Easily distracted Memory: Impaired Mood: Anxious Affect: Labile (Childlike) Thought Process & Associations: Disorganized Thought Content: Bizarre thinking Hallucination Type: Other (Remains internally stimulated) Delusion Type: None Suicidal Ideation: No (No SI voiced) Homicidal Ideation: No (No HI voiced) Insight: Poor Judgment: Poor Assessment and Plan - Assessment (1) Bipolar affective disorder, currently manic, severe, with psychotic features Code(s): F31.2 - Bipolar disorder, current episode manic severe with psychotic features Status: Acute - Plan Plan: Titrate Zyprexa to 10 mg in the morning and 15 mg at bedtime for psychosis and mood stabilization. Continue to monitor on the medical psychiatric unit with a one-to-one for behavioral redirection. Hospitalist input noted and appreciated. Continue other medications and care as ordered. Justification for Continued Inpatient Stay: Medication changes. Impairment in reality construction. High risk for decompensation in less restrictive environment. Discharge Planning: Pending psychiatric stabilization Request Healthcare Surrogate/Guardian Advocate?: Yes
[2018-01-20 13:19] LABS: CKMB Percent 0.8 % (0.0-4.0)
[2018-01-20] MEDS: OLANZapine 15 MG ODT Tablet PO SCH (21:00)
[2018-01-20] MEDS: LORazepam 1 MG Tablet PO PRN (21:00)
[2018-01-21] MEDS: Nystatin 100,000 UNITS/GM Powder 15 GM Bottle TOPICAL SCH ×2 (03:34→20:08)
[2018-01-21] MEDS: Metoprolol Tartrate 50 MG Tablet PO SCH ×2 (08:15→20:08)
--- NOTE | 2018-01-21 11:55 | P.PNPSY ---
Subjective Remarks: Patient seen and examined with 1:1 sitter. Chart reviewed. Patient ate 50% of all meals yesterday. Case discussed with nursing staff. Patient noted to remain fairly hyperkinetic. She reportedly had an episode this morning where she was throwing items around the room. Case discussed in treatment team. On my exam, I find the patient pacing around the unit. She does make some sensible utterances, but her speech is a little rapid. She continues to exhibit utilization behavior, lunging to try to grab pens from my pocket, for example. She remains internally stimulated. Affect is perhaps a little less labile today. No evident side effects from medications. No obvious signs of physical distress. Vital Signs Temp Pulse Resp BP Pulse Ox 01/21/18 06:00 97.8 F 119 H 18 125/68 99 01/20/18 18:03 98.4 F 114 H 19 115/60 95 Intake and Output 01/20/18 01/21/18 01/21/18 22:59 06:59 14:59 Intake Total 2920 / 2920 0 / 0 Output Total Balance 2920 / 2920 - / - Intake: Oral 2820 / 2820 0 / 0 Oral Supplement 100 / 100 Output: Urine Other: Date of Last Bowel Movement 01/15/18 Laboratory Results - last 24 hr 01/21/18 12:00 Sodium 141 Potassium 4.9 Chloride 111 H Carbon Dioxide 19.1 L Anion Gap 11 BUN 12 Creatinine 0.77 Estimated GFR Greater than 89 Random Glucose 106 Calcium 9.9 Total Creatine Kinase 670 H CK-MB (CK-2) 8.2 H CK-MB (CK-2) % 1.2 Labs reviewed. Review of Systems unobtainable due to mental condition (Limitation: Psychosis) Mental Status Examination Appearance: Other (Fair grooming.) Consciousness: Alert Orientation: Person Motor Activity: Other (Hyperkinetic. No other motor abnormalities noted.) Speech: Other (Somewhat rapid) Language: Other (Phrases and brief sentences) Fund of Knowledge: Inadequate Attention and Concentration: Easily distracted Memory: Impaired Mood: Anxious Affect: Labile (A little less so today. Fairly childlike.) Thought Process & Associations: Disorganized Thought Content: Bizarre thinking Hallucination Type: Other (Internally preoccupied) Delusion Type: None Suicidal Ideation: No (No SI voiced) Homicidal Ideation: No (No HI voiced) Insight: Poor Judgment: Poor Assessment and Plan - Assessment (1) Bipolar affective disorder, currently manic, severe, with psychotic features Code(s): F31.2 - Bipolar disorder, current episode manic severe with psychotic features Status: Acute - Plan Plan: Patient received 10mg Zyprexa this morning and will receive 15mg qHS tonight. Plan to titrate to 10/20mg tomorrow. I do suspect patient will require extended period for stabilization, as she did last time, but if Zyprexa alone is insufficient, to consider adding a different mood stabilizer (e.g. VPA) or a second antipsychotic, although it had been patient's brother's preference to continue with the Zyprexa alone if possible. Akathisia was considered as a cause for patient's hyperkinetic movements, but patient is already on a beta william and is receiving fairly frequent doses of benzodiazepine and so this seems less likely. Although patient's CK remains mildly elevated and heart rate is somewhat elevated, there are no other signs or symptoms of NMS; these abnormalities are likely both due to patient's psychotic/manic agitation. Continue 1:1 for behavioral redirection. Continue to monitor on the medical psychiatric unit. Hospitalist input appreciated. Continue other medications and care as ordered. Justification for Continued Inpatient Stay: Impairment in reality construction. High risk for decompensation in less restrictive environment. Medication changes planned. Discharge Planning: Pending psychiatric stabilization Request Healthcare Surrogate/Guardian Advocate?: Yes
[2018-01-21 12:57] LABS: Anion Gap 11 meq/L (5-15); Blood Urea Nitrogen 12 mg/dL (7-18); Calcium 9.9 mg/dL (8.5-10.1); Carbon Dioxide 19.1 meq/L (21.0-32.0); Chloride 111 meq/L (98-107); Glomerular Filtration Rate Greater Than 89 mL/min (>89); Glucose,Random 106 mg/dL (74-106); Sodium 141 meq/L (136-145)
[2018-01-21 13:00] LABS: Potassium 4.9 meq/L (3.5-5.1)
[2018-01-21 13:04] LABS: Creatine Kinase 670 U/L (26-192)
[2018-01-21 13:49] LABS: CKMB Percent 1.2 % (0.0-4.0); Creatine Kinase MB 8.2 ng/mL (0.5-3.6)
--- NOTE | 2018-01-21 15:31 | P.PN ---
Subjective Interval history: Follow-up visit for rhabdomyolysis, hypernatremia, hypokalemia. Patient is seen ambulating/pacing about the halls in psychiatric unit. Sitter who is with patient notes patient has been pacing. Patient unable to offer meaningful information. appears internally stimulated and manic Physical Exam Vital signs: Vital Signs 01/20/18 18:03 01/21/18 06:00 Temperature 98.4 F 97.8 F Pulse Rate 114 H 119 H Respiratory Rate 19 18 Blood Pressure 115/60 125/68 Pulse Oximetry 95 99 Intake & Output 01/20/18 01/21/18 01/21/18 18:59 06:59 18:59 Intake Total 4320 / 4320 340 / 340 Output Total Balance 4320 / 4320 339 / 339 Intake: Oral 4320 / 4320 240 / 240 Oral Supplement 100 / 100 Output: Urine Other: Date of Last Bowel Movement 01/15/18 01/15/18 Narrative: GENERAL: This is a well-developed,well-nourished. pacing the halls and restless. SKIN: Warm and dry. HEENT: Atraumatic. Normocephalic. EOMI. No scleral icterus. No injection or drainage. No nasal bleeding or discharge. Airway patent. CARDIOVASCULAR: Tachycardic RESPIRATORY: Nonlabored. Clear to auscultation. Breath sounds equal bilaterally. GASTROINTESTINAL: Abdomen soft, nondistended. No tenderness to palpation. No guarding. Bowel sounds normal. MUSCULOSKELETAL: Extremities without clubbing or cyanosis. Trace lower extremity edema noted. NEUROLOGICAL: Awake and alert, pacing around the halls. Difficulty following commands. No obvious cranial nerve deficits. Motor grossly within normal limits. Results - Labs CBC & Chem 7: 01/15/18 12:21 01/21/18 12:00 Laboratory Results - last 24 hr 01/21/18 12:00 Sodium 141 Potassium 4.9 Chloride 111 H Carbon Dioxide 19.1 L Anion Gap 11 BUN 12 Creatinine 0.77 Estimated GFR Greater than 89 Random Glucose 106 Calcium 9.9 Total Creatine Kinase 670 H CK-MB (CK-2) 8.2 H CK-MB (CK-2) % 1.2 Assessment and Plan - Plan This is a 21-year-old female with past medical history significant for schizophrenia, catatonic type, bipolar disorder, cannabis use disorder who was admitted to inpatient psychiatry secondary to mental decompensation with disorganized thought process, bizarre thinking and hyper religiosity after her schizophrenic medications were discontinued by her parents 2 months ago and who has since been admitted to [facility] psych for worsening mental status and bilateral lower extremity edema. Hospitalist services consulted for evaluation and management. Schizophrenia, catatonic type Bipolar disorder -Management per psychiatry Possible aspiration pneumonia CXR reveals basilar airspace disease predominantly on the left, concern for aspiration pneumonia. -Initially treated with IV Zosyn and Flagyl. Duonebs scheduled. Acapella and IS. Transitioned over to p.o. Augmentin to complete on 01/21. -Past swallow evaluation with recommendations for mechanical soft diet with thin liquids, aspiration precautions. -No cough present, afebrile, oxygen saturation stable on room air. -UA collected, no growth in 24 hours. Rhabdomyolysis Hypernatremia, resolved Suspect secondary to dehydration/poor oral intake and increased agitation -CK 670 (01/21/18) -IV fluids ordered but nursing staff is been unable to give patient IVs as she is continually pacing and has pulled out multiple IVs -Discussed with nursing staff would like patient to receive IV fluids if possible if that is not possible encourage p.o. fluid intake -Recheck CK and BMP in a.m. Hypokalemia-resolved - s/p replacement 01/21/2018 potassium 4.9 -Recheck BMP in a.m. 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 -continue with PT -continue to monitor Tachycardia7/9 bradycardic, heart rate 56 Patient does not appear to have any chest pain complaints EKG shows sinus tach -Ongoing tachycardia, she has been compliant with metoprolol. Continue Metoprolol to 50mg BID. -Tachycardia secondary to restlessness/manic. DVT prophylaxis -Patient is ambulatory. Discussed with patient, nursing staff and supervising physician Dr. Franco
[2018-01-21] MEDS: OLANZapine 15 MG ODT Tablet PO SCH (20:08)
[2018-01-21] MEDS: LORazepam 1 MG Tablet PO PRN (20:08)
--- NOTE | 2018-01-22 08:24 | P.PN ---
Subjective Interval history: Follow-up visit for rhabdomyolysis, hypernatremia, hypokalemia. Patient is seen pacing in psychiatric calls, later examined sitting on bathroom floor. She is awake, alert, visibly agitated with few spoken words, not making much sense. Spoke with nurse reports patient continues to be quite agitated, episode of vomiting this morning after breakfast. Physical Exam Vital signs: Vital Signs 01/21/18 18:10 Pulse Rate 110 H Respiratory Rate 18 Pulse Oximetry 95 Intake & Output 01/21/18 01/22/18 01/22/18 18:59 06:59 18:59 Intake Total 600 / 600 700 / 700 240 / 240 Balance 600 / 600 700 / 700 240 / 240 Intake: Oral 600 / 600 700 / 700 240 / 240 Other: # Voids 4 1 Narrative: GENERAL: This is a well-developed,well-nourished overweight female, in no acute distress. Ambulating in psychiatric call, restless. SKIN: Warm and dry. HEENT: Atraumatic. Normocephalic. No scleral icterus. No injection or drainage. No nasal bleeding or discharge. Airway patent. NECK: Trachea midline. CARDIOVASCULAR: Tachycardic, no murmur rubs or gallops. RESPIRATORY: Nonlabored. Clear to auscultation. Breath sounds equal bilaterally. GASTROINTESTINAL: Abdomen soft, nondistended. No tenderness to palpation. No guarding. Bowel sounds normal. MUSCULOSKELETAL: Extremities without clubbing or cyanosis. Trace lower extremity edema noted. NEUROLOGICAL: Awake and alert, increasingly active and pacing around the workman. Difficulty following commands. No obvious cranial nerve deficits. Motor grossly within normal limits. Speech is clear. PSYCHIATRIC: Insight and judgment poor. Results - Labs CBC & Chem 7: 01/15/18 12:21 01/22/18 07:38 Laboratory Results - last 24 hr 01/21/18 12:00 Sodium 141 Potassium 4.9 Chloride 111 H Carbon Dioxide 19.1 L Anion Gap 11 BUN 12 Creatinine 0.77 Estimated GFR Greater than 89 Random Glucose 106 Calcium 9.9 Total Creatine Kinase 670 H CK-MB (CK-2) 8.2 H CK-MB (CK-2) % 1.2 Assessment and Plan - Plan This is a 21-year-old female with past medical history significant for schizophrenia, catatonic type, bipolar disorder, cannabis use disorder who was admitted to inpatient psychiatry secondary to mental decompensation with disorganized thought process, bizarre thinking and hyper religiosity after her schizophrenic medications were discontinued by her parents 2 months ago and who has since been admitted to med psych for worsening mental status and bilateral lower extremity edema. Hospitalist services consulted for evaluation and management. Schizophrenia, catatonic type Bipolar disorder -Management per psychiatry Possible aspiration pneumonia CXR reveals basilar airspace disease predominantly on the left, concern for aspiration pneumonia. -Initially treated with IV Zosyn and Flagyl. Duonebs scheduled. Acapella and IS. Transitioned over to p.o. Augmentin to complete on 01/21. -Past swallow evaluation with recommendations for mechanical soft diet with thin liquids, aspiration precautions. -No cough present, afebrile, oxygen saturation stable on room air. -UA collected, no growth to date. Rhabdomyolysis Hypernatremia, resolved Suspect secondary to dehydration/poor oral intake and increased agitation -CK 670-->607 -IV fluids ordered but nursing staff is been unable to give patient IVs as she is continually pacing and has pulled out multiple IVs -If possible IVF if that is not possible encourage p.o. fluid intake -continue to follow CK levels. Hypokalemia - s/p replacement IV replacement 01/14 -Continue KCl p.o. 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 -continue with PT -continue to monitor Tachycardia7/9 bradycardic, heart rate 56 Patient does not appear to have any chest pain complaints EKG shows sinus tach -Ongoing tachycardia, she has been compliant with metoprolol 50mg BID. -Tachycardia secondary to restlessness. DVT prophylaxis -Patient is ambulatory. Discussed Condition With: Discussed with nurse and staff.
[2018-01-22] MEDS: Metoprolol Tartrate 50 MG Tablet PO SCH ×2 (08:45→20:46)
[2018-01-22] MEDS ORDERED: Haloperidol Inj 5 MG/ML Ampul ONE (08:57)
[2018-01-22 09:00] LABS: Anion Gap 11 meq/L (5-15); Blood Urea Nitrogen 10 mg/dL (7-18); Calcium 9.5 mg/dL (8.5-10.1); Carbon Dioxide 20.1 meq/L (21.0-32.0); Chloride 111 meq/L (98-107); Glomerular Filtration Rate Greater Than 89 mL/min (>89); Glucose,Random 103 mg/dL (74-106); Potassium 4.2 meq/L (3.5-5.1); Sodium 142 meq/L (136-145)
[2018-01-22 09:04] LABS: Creatine Kinase 607 U/L (26-192)
[2018-01-22] MEDS ORDERED: Haloperidol Inj 5 MG/ML Ampul IM STA (09:13)
[2018-01-22 11:37] LABS: CKMB Percent 0.8 % (0.0-4.0); Creatine Kinase MB 4.8 ng/mL (0.5-3.6)
--- NOTE | 2018-01-22 12:45 | P.PNPSY ---
Subjective Remarks: Patient seen and examined with nurse. Chart reviewed. Case discussed with nursing staff. Patient remains on a one-to-one for behavioral redirection. Oral intakes 0/50/0 percent yesterday. Patient agitated and aggressive this morning, throwing items at staff per nurse. I ordered the patient medicated with Haldol and Benadryl IM ETO. Patient also reportedly induced vomiting this morning for unclear reasons. Morning medications were administered following episode of emesis. When I examined the patient later in the morning, she is calm and sitting with her one-to-one eating lunch. She is oriented to person and [place]. Some echolalia. Remains a little internally stimulated. Thought process remains fairly disorganized overall, although she is able to answer some questions appropriately. She can provide no comprehensible explanation for her agitation this morning. No side effects from medications. No physical complaints. No upper or lower extremity increased tone on exam. No hand tremor , no dystonias or dyskinesias noted. Placed call to the patient's guardian advocate and brother Ravi to discuss the case. Left generic voicemail requesting a call back. Vital Signs Pulse Resp Pulse Ox 01/21/18 18:10 110 H 18 95 Intake and Output 01/21/18 01/22/18 01/22/18 22:59 06:59 14:59 Intake Total 1300 / 1300 480 / 480 Balance 1300 / 1300 480 / 480 Intake: Oral 1300 / 1300 480 / 480 Other: # Voids 2 1 Laboratory Results - last 24 hr 01/21/18 01/22/18 12:00 07:38 Sodium 141 142 Potassium 4.9 4.2 Chloride 111 H 111 H Carbon Dioxide 19.1 L 20.1 L Anion Gap 11 11 BUN 12 10 Creatinine 0.77 0.77 Estimated GFR Greater than 89 Greater than 89 Random Glucose 106 103 Calcium 9.9 9.5 Total Creatine Kinase 670 H 607 H CK-MB (CK-2) 8.2 H 4.8 H CK-MB (CK-2) % 1.2 0.8 Labs reviewed. Mild CK elevation persists but is not worsening. No evidence of renal compromise. Review of Systems unobtainable due to mental condition (Limitation: Poor historian) Mental Status Examination Appearance: Other (Fair grooming.) Consciousness: Alert Orientation: Person, Place ([place]) Motor Activity: Other (Motor exam as above. Not hyperkinetic today.) Speech: Unremarkable Language: Other (Some comprehensible material) Fund of Knowledge: Inadequate Attention and Concentration: Easily distracted Memory: Impaired Mood: Anxious Affect: Labile, Other (Childlike) Thought Process & Associations: Disorganized Thought Content: Bizarre thinking Hallucination Type: Other (Internally preoccupied) Delusion Type: None Suicidal Ideation: No (No SI voiced) Homicidal Ideation: No (No HI voiced) Insight: Poor Judgment: Poor Assessment and Plan - Assessment (1) Bipolar affective disorder, currently manic, severe, with psychotic features Code(s): F31.2 - Bipolar disorder, current episode manic severe with psychotic features Status: Acute - Plan Plan: Titrate Zyprexa to 10 mg in the morning and 20 mg at bedtime. To consider addition of a second antipsychotic or transition to a typical or a Clozaril trial if Zyprexa alone is ineffective for patient's condition. Hospitalist input noted and appreciated. Continue to monitor on the medical psychiatric unit. Continue other medications and care as ordered. Justification for Continued Inpatient Stay: Medication changes. Impairment in self-care. High risk for decompensation in less restrictive environment. Discharge Planning: Pending psychiatric stabilization Request Healthcare Surrogate/Guardian Advocate?: Yes
[2018-01-22] MEDS: Nystatin 100,000 UNITS/GM Powder 15 GM Bottle TOPICAL SCH ×2 (14:54→20:46)
[2018-01-22] MEDS: LORazepam 1 MG Tablet PO PRN ×2 (15:25→21:29)
[2018-01-22] MEDS: OLANZapine 10 MG ODT Tablet PO SCH (20:45)
--- NOTE | 2018-01-23 08:03 | P.PN ---
Subjective Interval history: Follow-up visit for rhabdomyolysis, hypernatremia, hypokalemia. Nurse reports patient was resting more yesterday with sitter, spent time in mele-chair, and drinking water. Has been compliant with oral medications, not taking IV fluids. Sitter reports patient did not get much sleep overnight. This morning patient is seen and examined resting in bed, she appears to be restless in bed. Becomes emotional and tearful during my encounter, few spoken words. She ate about 50% of her breakfast this morning. Physical Exam Vital signs: Vital Signs 01/22/18 18:05 01/23/18 06:13 Temperature 36.6 C 36.7 C Pulse Rate 115 H 100 H Respiratory Rate 16 18 Blood Pressure 119/66 Pulse Oximetry 98 98 Intake & Output 01/22/18 01/23/18 01/23/18 18:59 06:59 18:59 Intake Total 1200 / 1200 480 / 480 Balance 1200 / 1200 480 / 480 Intake: Oral 1200 / 1200 480 / 480 Other: # Voids 1 Date of Last Bowel Movement 01/15/18 Narrative: GENERAL: This is a well-developed,well-nourished overweight female, resting in bed appears restless. SKIN: Warm and dry. HEENT: Atraumatic. Normocephalic. No scleral icterus. No injection or drainage. No nasal bleeding or discharge. Airway patent. NECK: Trachea midline. CARDIOVASCULAR: Tachycardic, no murmur rubs or gallops. RESPIRATORY: Nonlabored. Clear to auscultation. Breath sounds equal bilaterally. GASTROINTESTINAL: Abdomen soft, nondistended. No tenderness to palpation. No guarding. Bowel sounds normal. MUSCULOSKELETAL: Extremities without clubbing or cyanosis. Trace lower extremity edema noted. NEUROLOGICAL: Awake and alert, difficulty with redirection. No obvious cranial nerve deficits. Motor grossly within normal limits. Speech is clear, few spoken words. PSYCHIATRIC: Insight and judgment poor. Results - Labs CBC & Chem 7: 01/15/18 12:21 01/22/18 07:38 Laboratory Results - last 24 hr 01/22/18 07:38 Sodium 142 Potassium 4.2 Chloride 111 H Carbon Dioxide 20.1 L Anion Gap 11 BUN 10 Creatinine 0.77 Estimated GFR Greater than 89 Random Glucose 103 Calcium 9.5 Total Creatine Kinase 607 H CK-MB (CK-2) 4.8 H CK-MB (CK-2) % 0.8 - Imaging Impressions Abdomen X-Ray 01/07/18 00:00 CONCLUSION: No evidence of obstruction. Assessment and Plan - Plan This is a 21-year-old female with past medical history significant for schizophrenia, catatonic type, bipolar disorder, cannabis use disorder who was admitted to inpatient psychiatry secondary to mental decompensation with disorganized thought process, bizarre thinking and hyper religiosity after her schizophrenic medications were discontinued by her parents 2 months ago and who has since been admitted to [facility] for worsening mental status and bilateral lower extremity edema. Hospitalist services consulted for evaluation and management. Schizophrenia, catatonic type Bipolar disorder -Management per psychiatry Possible aspiration pneumonia CXR reveals basilar airspace disease predominantly on the left, concern for aspiration pneumonia. -Initially treated with IV Zosyn and Flagyl. Duonebs scheduled. Acapella and IS. Transitioned over to p.o. Augmentin to complete on 01/21. -Past swallow evaluation with recommendations for mechanical soft diet with thin liquids, aspiration precautions. -No cough present, afebrile, oxygen saturation stable on room air. -UA collected, no growth to date. Rhabdomyolysis Hypernatremia, resolved Suspect secondary to dehydration/poor oral intake and increased agitation -CK 670-->607 -IV fluids ordered but nursing staff is been unable to give patient IVs as she is continually pulled out multiple IVs -Continue to encourage p.o. fluid intake -Recheck CK levels tomorrow. Hypokalemia - s/p replacement IV replacement 01/14 -Continue KCl p.o. replacement, potassium level 3.8 - Check BMP tomorrow. 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 -continue with PT -continue to monitor Tachycardia01/13 bradycardic, heart rate 56 Patient does not appear to have any chest pain complaints EKG shows sinus tach -Ongoing tachycardia, she has been compliant with metoprolol 50mg BID. -Tachycardia secondary to restlessness. DVT prophylaxis -Patient is ambulatory.
--- NOTE | 2018-01-23 13:59 | P.DIET ---
Nutritional Evaluation Type of nutrition evaluation: follow-up Nutrition consult regarding: Diet Evaluation Nutrition screening: Poor PO Intake, [place] [facility] [place] Subjective Oral Diet Tolerance Assessment Indicates: Swallowing problems Subjective Comments: Pt visited after lunch today. Pt sleeping w/sitter at bedside. Sitter reports pt ate 30% for lunch today. Objective - Diagnosis Unspecified Psychosis - Indications of Malnutrition Characteristics: Insufficient energy intake - Objective % IBW: 147 Body Weight Used for Calculations: IBW Energy Needs - Lower Range (kCal/kg): 28 Energy Needs - Upper Range (kCal/kg): 33 Lower Limit kCal/kg (kCals): 1,591 Upper Limit kCal/kg (kCals): 1,874 Lower Limit Protein Factor (Grams per Kg): 1.4 Upper Limit Protein Factor (Grams per Kg): 1.6 Lower Protein Needs (Protein): 80 Upper Protein Needs (Protein): 91 Fluid Factor (ml/kg): 33 Estimated Fluid Needs (ml): 1,874 Dietitian Reviewed in Medical Record: Current diet, Curent medications, Intake & Output, Labs Diet Order: [facility] Soft Speech Therapy Recommendations: Yes (Regular) Objective Comments: PMH: Schizophrenia-catatonic type, bipolar DO, Cannabis Use DO HgA1C 5.0 Meds Include: Metorpolol, Ativan, Zyprexa, Ambien LBM(01/22) Feeding - Current PO Supplement Current Supplement: Ensure Enlive Current Supplement Flavor: Chocolate Current Frequency of Supplement: Three times a day Current kCals Provided by Supplement: 350 Current Protein Provided by Supplement: 20 Assessment Assessment: Pt continues at nutritional risk r/t poor po intake. Pt continues w/Variable po intake 10% to 100% for meals. Pt needs encouragement w/meals. Continue chocolate milk and milk. Continue Ensure Enlive tid. Rec a Multiple Vitamin supplement r/t variable po intake. Rec a current wt.; last wt 01/13. Dietitian following. Recommendations: 1.Pt needs encouragement w/meals 2.Continue chocolate milk and milk 3.Continue Ensure Enlive tid 4.Rec a Multiple Vitamin supplement r/t variable po intake 5.Rec a current wt.; last wt 01/13 6.Dietitian following Dietitian to Monitor: Lab values, Supplement acceptance, Intake & Output, Weight change, PO Intake
[2018-01-23] MEDS: Nystatin 100,000 UNITS/GM Powder 15 GM Bottle TOPICAL SCH ×2 (17:45→21:07)
[2018-01-23] MEDS: Metoprolol Tartrate 50 MG Tablet PO SCH ×2 (17:46→21:08)
--- NOTE | 2018-01-23 18:08 | P.PNPSY ---
Subjective Remarks: Patient seen and examined with nurse. Chart reviewed. Case discussed with nursing staff who reports that the patient has been sleeping this afternoon after sleeping poorly overnight. Nurse does note that the patient was somewhat clearer in conversation today. Oral intake reviewed for yesterday 05/01/100 percent. For me today, the patient is dozing in her room. One-to-one sitter at the bedside. She is calm. Makes some sensible utterances. Limited interview today as patient does seem quite tired. No evident side effects from medications. No physical complaints. I once again called and left a voicemail for GA/brother, Ravi. Vital Signs Temp Pulse Resp BP Pulse Ox 01/23/18 06:13 98.1 F 100 H 18 119/66 98 Intake and Output 01/23/18 01/23/18 01/23/18 06:59 14:59 22:59 Intake Total 480 / 480 Balance 480 / 480 Intake: Oral 480 / 480 Other: # Voids 1 Date of Last Bowel Movement 01/22/18 Labs reviewed. Review of Systems other (Limited ROS) Mental Status Examination Appearance: Other (Fair grooming.) Consciousness: Asleep Orientation: Person (At least) Motor Activity: Other (No motor abnormalities noted) Speech: Unremarkable Language: Other (Some comprehensible material) Attention and Concentration: Easily distracted Mood: Other (Calm) Affect: Blunt Thought Process & Associations: Disorganized Hallucination Type: Other (Remains a little internally preoccupied) Suicidal Ideation: No (No SI voiced) Homicidal Ideation: No (No HI voiced) Insight: Poor Judgment: Poor Assessment and Plan - Assessment (1) Bipolar affective disorder, currently manic, severe, with psychotic features Code(s): F31.2 - Bipolar disorder, current episode manic severe with psychotic features Status: Acute - Plan Plan: Continue Zyprexa as ordered. Need to discuss medication options with patient's GA. Continue one-to-one for behavioral redirection. Continue to monitor on the medical psychiatric unit. Hospitalist input noted and appreciated. Dietitian input noted and appreciated. I have ordered the patient weight and vitamin B12 level. Continue other medications and care as ordered. Justification for Continued Inpatient Stay: Impairment in reality construction. High risk for decompensation in less restrictive environment. Discharge Planning: Pending psychiatric stabilization Request Healthcare Surrogate/Guardian Advocate?: Yes
[2018-01-23] MEDS: LORazepam 1 MG Tablet PO PRN (21:08)
[2018-01-23] MEDS: OLANZapine 10 MG ODT Tablet PO SCH (21:08)
--- NOTE | 2018-01-24 07:58 | P.PN ---
Subjective Interval history: Follow-up visit rhabdomyolysis, schizophrenia. Seen and examined today sitting on the floor with the aid also sitting with her on the floor. Patient does not want to get up from the floor. Patient was cued to get up and was helped out and was able to stand up and walk towards her room. She does not respond to questions but she is able to follow commands. She keeps on saying "food, food" . Patient appears to be regressed to childish behavior. Physical Exam Vital signs: Vital Signs 01/24/18 06:03 Temperature 98.4 F Pulse Rate 106 H Respiratory Rate 18 Blood Pressure 123/65 Pulse Oximetry 96 Intake & Output 01/23/18 01/24/18 01/24/18 18:59 06:59 18:59 Intake Total 240 / 240 620 / 620 Balance 240 / 240 620 / 620 Weight 74.5 kg Intake: Oral 240 / 240 620 / 620 Other: # Voids 3 3 # Incontinent Voids 1 Date of Last Bowel Movement 01/22/18 Narrative: GENERAL: This is a well-developed,well-nourished overweight female. SKIN: Warm and dry. HEENT: Atraumatic. Normocephalic. No scleral icterus. No injection or drainage. No nasal bleeding or discharge. Airway patent. NECK: Trachea midline. CARDIOVASCULAR: Tachycardic, no murmur rubs or gallops. RESPIRATORY: Nonlabored. Clear to auscultation. Breath sounds equal bilaterally. GASTROINTESTINAL: Abdomen soft, nondistended. No tenderness to palpation. No guarding. Bowel sounds normal. MUSCULOSKELETAL: Extremities without clubbing or cyanosis. Trace lower extremity edema noted. NEUROLOGICAL: Awake and alert, difficulty with redirection. No obvious cranial nerve deficits. Motor grossly within normal limits. Speech is clear, few spoken words. Regressed behavior. Results - Labs CBC & Chem 7: 01/15/18 12:21 01/24/18 11:55 Assessment and Plan - Plan 21-year-old female with past medical history significant for schizophrenia, catatonic type, bipolar disorder, cannabis use disorder who was admitted to inpatient psychiatry secondary to mental decompensation with disorganized thought process, bizarre thinking and hyper religiosity after her schizophrenic medications were discontinued by her parents 2 months ago and who has since been admitted to [facility] psych for worsening mental status and bilateral lower extremity edema. Hospitalist services consulted for evaluation and management. Schizophrenia, catatonic type/ Manic Bipolar disorder -Management per psychiatry Possible aspiration pneumonia CXR reveals basilar airspace disease predominantly on the left, concern for aspiration pneumonia. -Initially treated with IV Zosyn and Flagyl. Duonebs scheduled. Acapella and IS. -Transitioned over to p.o. Augmentin to complete on 01/21. -Past swallow evaluation with recommendations for mechanical soft diet with thin liquids, aspiration precautions. -No cough present, afebrile, oxygen saturation stable on room air. -UA collected, no growth to date. Rhabdomyolysis Hypernatremia, resolved Suspect secondary to dehydration/poor oral intake and increased agitation -CK 670-->607 --> 365 -IV fluids ordered but nursing staff is been unable to give patient IVs as she is continually pulled out multiple IVs -Continue to encourage p.o. fluid intake -Improved Hypokalemia -S/p replacement IV replacement 01/14 -Continue KCl p.o. 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 -Tachycardia secondary to restlessness/ agitation DVT prophylaxis -Patient is ambulatory. Code Status: Full Code Discussed Condition With: Patient, nursing Discharge Planning: DC disposition with psych
[2018-01-24] MEDS: Metoprolol Tartrate 50 MG Tablet PO SCH ×2 (08:35→21:40)
[2018-01-24] MEDS: LORazepam 1 MG Tablet PO PRN ×2 (08:37→21:40)
[2018-01-24] MEDS: Nystatin 100,000 UNITS/GM Powder 15 GM Bottle TOPICAL SCH ×2 (08:38→21:40)
--- NOTE | 2018-01-24 11:41 | P.PNPSY ---
Subjective Remarks: Patient seen and examined during fresh air. Chart reviewed. Case discussed with nursing staff. Patient noted to be hyperactive and sleeping very poorly. For me today, patient remains hyperkinetic, wandering around the fresh air area with her one-to-one. Some sensible speech but largely rambling and disorganized. Patient remains internally stimulated. No evident side effects from medications. No evident physical distress. Spoke with patient's brother/guardian advocate about medication adjustments. He would like to give the Zyprexa monotherapy more of a try. He does feel like the 20 mg dose at night is too much and would like to spread the dose out throughout the day. I have expressed skepticism about this approach and recommended clozapine, a typical antipsychotic or ECT, but GA wants to try the above strategy first. He does agree that if patient is not significantly better after the weekend, then we should probably adjust therapy. Vital Signs Temp Pulse Resp BP Pulse Ox 01/24/18 06:03 98.4 F 106 H 18 123/65 96 Intake and Output 01/24/18 01/24/18 01/24/18 06:59 14:59 22:59 Intake Total 620 / 620 840 / 840 Balance 620 / 620 840 / 840 Intake: Oral 620 / 620 840 / 840 Other: # Voids 3 # Incontinent Voids 1 Weight 74.5 kg Laboratory Results - last 24 hr 01/24/18 11:55 Sodium 143 Potassium 3.8 Chloride 111 H Carbon Dioxide 24.0 Anion Gap 8 BUN 13 Creatinine 0.66 Estimated GFR Greater than 89 Random Glucose 92 Calcium 8.9 Total Creatine Kinase 365 H CK-MB (CK-2) 4.0 H CK-MB (CK-2) % 1.1 Vitamin B12 780 Labs reviewed. CK decreased. Vitamin B12 level within normal limits. Review of Systems unobtainable due to mental condition Mental Status Examination Appearance: Other (Fair grooming.) Consciousness: Asleep Orientation: Person (At least) Motor Activity: Other (Hyperkinetic. No other motor abnormalities noted.) Speech: Unremarkable Language: Other (Some comprehensible material) Fund of Knowledge: Inadequate Attention and Concentration: Easily distracted Memory: Impaired Mood: Anxious Affect: Anxious Thought Process & Associations: Disorganized Thought Content: Bizarre thinking Hallucination Type: Other (Internally preoccupied) Delusion Type: None Suicidal Ideation: No (No SI voiced) Homicidal Ideation: No (No HI voiced) Insight: Poor Judgment: Poor Assessment and Plan - Assessment (1) Bipolar affective disorder, currently manic, severe, with psychotic features Code(s): F31.2 - Bipolar disorder, current episode manic severe with psychotic features Status: Acute - Plan Plan: Adjust Zyprexa to 10 mg 3 times a day per GA request. Replace Ambien with Lunesta 1 mg at bedtime in hopes that this will prove a more efficacious hypnotic. Please titrate Lunesta through the weekend if patient still was not sleeping. Continue to monitor on the medical psychiatric unit. Hospitalist input appreciated. Continue other care as ordered. Justification for Continued Inpatient Stay: Medication changes. High risk for decompensation in less restrictive environment. Discharge Planning: Pending psychiatric stabilization Request Healthcare Surrogate/Guardian Advocate?: Yes
[2018-01-24 13:16] LABS: Anion Gap 8 meq/L (5-15); Blood Urea Nitrogen 13 mg/dL (7-18); Calcium 8.9 mg/dL (8.5-10.1); Chloride 111 meq/L (98-107); Glomerular Filtration Rate Greater Than 89 mL/min (>89); Glucose,Random 92 mg/dL (74-106); Potassium 3.8 meq/L (3.5-5.1); Sodium 143 meq/L (136-145)
[2018-01-24 13:41] LABS: Creatine Kinase 365 U/L (26-192); Vitamin B12 780 pg/mL (193-986)
[2018-01-24 13:54] LABS: CKMB Percent 1.1 % (0.0-4.0)
--- NOTE | 2018-01-25 08:21 | P.PNPSY ---
Subjective Chief Complaint: Rounded on patient Yasemin RN. Night staff reports that patient did not sleep throughout the entire night. She was given Ativan IM at approximately midnight which only settle her for about an hour. When I arrived in the morning she was screaming and uncooperative. She was moved to a chair and reoriented. She did stop screaming when staff engaged with her. She stated she was hungry and she started to eat her breakfast. She is alert to self but does not answer questions appropriately. She is easily distracted and has poor concentration. Patient appears internally stimulated. Per chart psychiatrist is working closely with the family regarding medication management. Remarks: Psychiatrist in collaboration with family is adjusting medications to stabilize patient. Review of Systems All other systems reviewed negative except as stated in HPI Mental Status Examination Appearance: Other (Fair grooming.) Consciousness: Asleep Orientation: Person (At least) Motor Activity: Other (Hyperkinetic. No other motor abnormalities noted.) Speech: Unremarkable Language: Other (Some comprehensible material) Fund of Knowledge: Inadequate Attention and Concentration: Easily distracted Memory: Impaired Mood: Anxious Affect: Anxious Thought Process & Associations: Disorganized Thought Content: Bizarre thinking Hallucination Type: Other (Internally preoccupied) Delusion Type: None Suicidal Ideation: No (No SI voiced) Suicidal Plan: No Suicidal Intention: No Homicidal Ideation: No (No HI voiced) Homicidal Plan: No Homicidal Intention: No Insight: Poor Judgment: Poor Assessment and Plan - Assessment (1) Bipolar affective disorder, currently manic, severe, with psychotic features Code(s): F31.2 - Bipolar disorder, current episode manic severe with psychotic features Status: Acute - Plan Plan: Per psychiatrist's plan, adjust Zyprexa to 10 mg 3 times a day per GA request. Replace Ambien with Lunesta 1 mg at bedtime in hopes that this will prove a more efficacious hypnotic. Please titrate Lunesta through the weekend if patient still was not sleeping. Continue to monitor on the medical psychiatric unit. Hospitalist input appreciated. Continue other care as ordered. Justification for Continued Inpatient Stay: Moving patient to a lower level of care may result in her decompensation. Discharge Planning: Continue discharge planning. Request Healthcare Surrogate/Guardian Advocate?: Yes
[2018-01-25] MEDS: Metoprolol Tartrate 50 MG Tablet PO SCH (08:22)
--- NOTE | 2018-01-25 15:01 | P.PN ---
Subjective Interval history: Patient seen in break room. She is oriented to self mainly. Does read my name tag and great me appropriately however she does not answer other questions appropriately. Internally stimulated. Appears somewhat agitated. Denies any significant pain but does say that her feet are sore from walking around. Physical Exam Vital signs: Vital Signs 01/25/18 06:26 Temperature 98.1 F Pulse Rate 101 H Respiratory Rate 22 Blood Pressure 109/55 L Pulse Oximetry 95 Intake & Output 01/24/18 01/25/18 01/25/18 18:59 06:59 18:59 Intake Total 1080 / 1080 480 / 480 Output Total 2 / 2 Balance 1080 / 1080 478 / 478 Intake: Oral 1080 / 1080 480 / 480 Output: Urine / Other: Date of Last Bowel Movement 01/22/18 Narrative: GENERAL: Well-nourished, well-developed adult female in no obvious distress. SKIN: Warm and dry. HEAD: Atraumatic. Normocephalic. CARDIOVASCULAR: Regular rate and rhythm. RESPIRATORY: No accessory muscle use. Clear to auscultation. Breath sounds equal bilaterally. GASTROINTESTINAL: Abdomen soft, non-tender, distended. Positive bowel sounds. MUSCULOSKELETAL: Extremities without clubbing, cyanosis. Slight generalized edema bilateral feet; non-pitting. No obvious deformities. NEUROLOGICAL: Awake and alert. No obvious cranial nerve deficits. Motor grossly within normal limits. Normal speech. PSYCHIATRIC: Mildly agitated; insight and judgment poor. Results - Labs CBC & Chem 7: 01/15/18 12:21 01/24/18 11:55 Assessment and Plan - Plan This is a 21-year-old female with past medical history significant for schizophrenia, catatonic type, bipolar disorder, cannabis use disorder who was admitted to inpatient psychiatry secondary to mental decompensation with disorganized thought process, bizarre thinking and hyper religiosity after her schizophrenic medications were discontinued by her parents 2 months ago and who has since been admitted to med psych for worsening mental status and bilateral lower extremity edema. Hospitalist services consulted for evaluation and management. Schizophrenia, catatonic type Bipolar disorder -Management per psychiatry Possible aspiration pneumonia; resolved CXR reveals basilar airspace disease predominantly on the left, concern for aspiration pneumonia. -Initially treated with IV Zosyn and Flagyl. Duonebs scheduled. Acapella and IS. Transitioned over to p.o. Augmentin to complete on 01/21. -Past swallow evaluation with recommendations for mechanical soft diet with thin liquids, aspiration precautions. -No cough present, afebrile, oxygen saturation stable on room air. -UA collected, no growth to date. Rhabdomyolysis Suspect secondary to dehydration/poor oral intake and increased agitation -CK 670-->607-->365 on 01/25 -Hypernatremia, resolved -IV fluids ordered but nursing staff is been unable to give patient IVs as she is continually pulled out multiple IVs -Continue to encourage p.o. fluid intake -Monitor CK levels. Hypokalemia - s/p replacement IV replacement 01/14 -Continue KCl p.o. replacement, potassium level 3.8 -Stable; monitor. Bilateral lower extremity edema, improved -Doppler studies negative for DVT -2D echocardiogram with EF 55-60%, trivial pulmonary valve regurgitation -Recommend leg elevation when possible -Bilateral OKSANA hose on when up OOB, trace edema noted on exam today, likely from increased activity and ambulation. -continue with PT -continue to monitor Tachycardia Patient does not appear to have any chest pain complaints EKG shows sinus tach -Ongoing tachycardia, she has been compliant with metoprolol 50mg BID. -Tachycardia secondary to restlessness. DVT prophylaxis -Patient is ambulatory.
[2018-01-25] MEDS: LORazepam 1 MG Tablet PO PRN (17:28)
[2018-01-26] MEDS: Nystatin 100,000 UNITS/GM Powder 15 GM Bottle TOPICAL SCH ×2 (05:28→20:48)
[2018-01-26] MEDS: Metoprolol Tartrate 50 MG Tablet PO SCH ×3 (05:29→20:47)
[2018-01-26] MEDS: Acetaminophen 325 MG Tablet PO PRN (11:10)
--- NOTE | 2018-01-26 18:09 | P.PN ---
Subjective Interval history: Patient is seen in her room lying on her bed. She has a sitter with her. Appears to becoming more manic and frequently giggles. Nursing staff is concerned with left ankle as patient is walking around on her toes on that foot. Patient denies any pain in the foot and dances around to show me that it does not hurt. Per sitter, she did eat well and did have a bowel movement today. Physical Exam Vital signs: Vital Signs 01/25/18 18:21 01/25/18 20:00 01/26/18 06:35 Temperature 98.7 F 98.8 F Pulse Rate 106 H 101 H Respiratory Rate 20 20 18 Blood Pressure 124/80 112/61 Pulse Oximetry 97 01/26/18 17:16 Temperature 98.3 F Pulse Rate 93 H Respiratory Rate 16 Blood Pressure 104/63 Pulse Oximetry 97 Intake & Output 01/25/18 01/26/18 01/26/18 18:59 06:59 18:59 Intake Total 960 / 960 360 / 360 480 / 480 Balance 960 / 960 360 / 360 480 / 480 Intake: Oral 960 / 960 360 / 360 480 / 480 Other: # Voids 4 2 3 Narrative: GENERAL: Well-nourished, well-developed adult female in no obvious distress. SKIN: Warm and dry. HEAD: Atraumatic. Normocephalic. CARDIOVASCULAR: Regular rate and rhythm. RESPIRATORY: No accessory muscle use. Clear to auscultation. Breath sounds equal bilaterally. GASTROINTESTINAL: Abdomen soft, non-tender, distended. Positive bowel sounds. MUSCULOSKELETAL: Extremities without clubbing, cyanosis. Slight generalized edema bilateral feet; non-pitting. Left ankle nontender with normal range of motion and no obvious deformity. NEUROLOGICAL: Awake and alert. No obvious cranial nerve deficits. Motor grossly within normal limits. Normal speech. PSYCHIATRIC: Mildly agitated; insight and judgment poor. Results - Labs CBC & Chem 7: 01/15/18 12:21 01/24/18 11:55 Assessment and Plan - Plan This is a 21-year-old female with past medical history significant for schizophrenia, catatonic type, bipolar disorder, cannabis use disorder who was admitted to inpatient psychiatry secondary to mental decompensation with disorganized thought process, bizarre thinking and hyper religiosity after her schizophrenic medications were discontinued by her parents 2 months ago and who has since been admitted to [facility] for worsening mental status and bilateral lower extremity edema. Hospitalist services consulted for evaluation and management. Schizophrenia, catatonic type Bipolar disorder -Management per psychiatry Possible aspiration pneumonia; resolved CXR reveals basilar airspace disease predominantly on the left, concern for aspiration pneumonia. -Initially treated with IV Zosyn and Flagyl. Duonebs scheduled. Acapella and IS. Transitioned over to p.o. Augmentin to complete on 01/21. -Past swallow evaluation with recommendations for mechanical soft diet with thin liquids, aspiration precautions. -No cough present, afebrile, oxygen saturation stable on room air. Rhabdomyolysis Suspect secondary to dehydration/poor oral intake and increased agitation -CK 670-->607-->365 on 01/25 -Hypernatremia, resolved -IV fluids ordered but nursing staff is been unable to give patient IVs as she is continually pulled out multiple IVs -Continue to encourage p.o. fluid intake -Monitor CK levels. Hypokalemia - s/p replacement IV replacement 01/14 -Continue KCl p.o. replacement, potassium level WNL -Stable; monitor. Bilateral lower extremity edema, improved -Doppler studies negative for DVT -2D echocardiogram with EF 55-60%, trivial pulmonary valve regurgitation -Recommend leg elevation when possible -Bilateral OKSANA hose on when up OOB, trace edema noted on exam today, likely from increased activity and ambulation. -continue with PT -continue to monitor Tachycardia Patient does not appear to have any chest pain complaints EKG shows sinus tach -Ongoing tachycardia, she has been compliant with metoprolol 50mg BID. -Tachycardia secondary to restlessness. DVT prophylaxis -Patient is ambulatory.
--- NOTE | 2018-01-26 18:35 | P.PNPSY ---
Subjective Chief Complaint: Rounded on patient Yasemin RN. Night staff reports that patient did not sleep throughout the entire night. She was given Ativan IM at approximately midnight which only settle her for about an hour. When I arrived in the morning she was screaming and uncooperative. She was moved to a chair and reoriented. She did stop screaming when staff engaged with her. She stated she was hungry and she started to eat her breakfast. She is alert to self but does not answer questions appropriately. She is easily distracted and has poor concentration. Patient appears internally stimulated. Per chart psychiatrist is working closely with the family regarding medication management. Remarks: Reviewed electronic medical records and discussed case with staff. Follow-up was conducted in patient's room with nurse present. Patient found lying on the bed with a 1-1 sitting in the corner of the room. Awake, alert, and oriented times self and place at least. She still seems internally stimulated however, she is able to communicate somewhat answer several questions appropriately. Her mood is good her affect is euthymic. Mental Status Examination Appearance: Other (Fair grooming.) Consciousness: Asleep Orientation: Person (At least) Motor Activity: Other (Hyperkinetic. No other motor abnormalities noted.) Speech: Unremarkable Language: Other (Some comprehensible material) Fund of Knowledge: Inadequate Attention and Concentration: Easily distracted Memory: Impaired Mood: Anxious Affect: Anxious Thought Process & Associations: Disorganized Thought Content: Bizarre thinking Hallucination Type: Other (Internally preoccupied) Delusion Type: None Suicidal Ideation: No (No SI voiced) Suicidal Plan: No Suicidal Intention: No Homicidal Ideation: No (No HI voiced) Homicidal Plan: No Homicidal Intention: No Insight: Poor Judgment: Poor Assessment and Plan - Plan Plan: Patient will be reevaluated tomorrow by the attending psychiatrist. Continue with current treatment plan. Justification for Continued Inpatient Stay: Moving this patient to a less restrictive environment would likely result in decompensation. Request Healthcare Surrogate/Guardian Advocate?: Yes
--- NOTE | 2018-01-27 07:59 | P.PNPSY ---
Subjective Remarks: Patient seen and examined with nurse. Chart reviewed. Case discussed with nursing staff. Per nursing, patient is having longer periods of lucidity. I have reviewed nutritional charting, and it appears patient took between 75 and 100% of meals yesterday. She slept 7 hours, a definite improvement with the addition of Lunesta. Patient remains with one-to-one for behavioral redirection. On my examination today, the patient is fairly hyperkinetic. She is thrashing around in the bed. This appears to be volitional. Her speech is more comprehensible today. Some ongoing auditory hallucinations. No SI or HI. No medication side effects. No acute physical complaints. I spoke with patient's brother/guardian advocate Ravi this morning. He has reviewed materials regarding the medication options that I discussed with him before the weekend. He has discussed the matter with the family. Ravi indicates that he does not consent to any antipsychotic change at this time. He does suggest replacing patient's oral Ativan with a different benzodiazepine as family members have experienced some side effects from Ativan. We discuss changing the oral Ativan to Xanax. Ravi reports that he and family would like to bring the patient home to convalesce there. He notes that the patient is already doing better than she was when she left the hospital last time, and he is confident that the patient will continue to improve and experience remission of symptoms only in the home environment. He says that he will need about a week to make the necessary arrangements. We will therefore tentatively plan for a discharge home into [facility] care on 02/03. I have apprised the mechanical planner. Vital Signs Temp Pulse Resp BP Pulse Ox 01/26/18 17:16 98.3 F 93 H 16 104/63 97 Intake and Output 01/26/18 01/27/18 01/27/18 22:59 06:59 14:59 Intake Total 1200 / 1200 120 / 120 Output Total 2 / 2 Balance 1198 / 1198 120 / 120 Intake: Oral 1200 / 1200 120 / 120 Output: Urine 2 / 2 Other: # Voids 3 Laboratory Results - last 24 hr 01/27/18 07:13 Total Creatine Kinase 159 Labs reviewed. CK has normalized. Review of Systems unobtainable due to mental condition Mental Status Examination Appearance: Other (Fair grooming.) Consciousness: Asleep Orientation: Person (At least) Motor Activity: Other (Remains a little hyperkinetic) Speech: Unremarkable Language: Other (Rambling) Fund of Knowledge: Inadequate Attention and Concentration: Easily distracted Memory: Impaired Mood: Anxious Affect: Anxious Thought Process & Associations: Disorganized (A little more organized today) Thought Content: Bizarre thinking Hallucination Type: Other (Internally stimulated) Delusion Type: None Suicidal Ideation: No (No SI voiced) Homicidal Ideation: No (No HI voiced) Insight: Poor Judgment: Poor Assessment and Plan - Assessment (1) Bipolar affective disorder, currently manic, severe, with psychotic features Code(s): F31.2 - Bipolar disorder, current episode manic severe with psychotic features Status: Acute - Plan Plan: Replace oral Ativan with Xanax 0.5 mg every 6 hours as needed. R/B/A discussed with brother/GA. GA does not consent any other psychotropic medication changes at this time and wants the patient returned home once family has made the necessary arrangements. Given that the patient's oral intake is improved and her sleep is better, I do believe that the patient could be safely maintained at home with considerable support from family to convalesce as they wish. Continue to monitor on the medical psychiatric unit. Continue other medications and care as ordered. Justification for Continued Inpatient Stay: Medication changes. Impairment in reality construction. Discharge Planning: Possible discharge home beginning of next week as noted above. Request Healthcare Surrogate/Guardian Advocate?: Yes
[2018-01-27] MEDS: Metoprolol Tartrate 50 MG Tablet PO SCH ×2 (09:27→21:01)
--- NOTE | 2018-01-27 12:23 | P.PN ---
Subjective Interval history: Patient is seen in her room. She has a sitter. Patient is much more tearful today. Continues to be somewhat manic. She is sitting with her feet in a dependent position, encouraged her to place them up on the bed to help reduce swelling. She does not answer any of my questions directly and instead keeps asking if I have called her mom and dad. Nurse reports no overnight events or concerns. Physical Exam Vital signs: Vital Signs 01/26/18 17:16 Temperature 98.3 F Pulse Rate 93 H Respiratory Rate 16 Blood Pressure 104/63 Pulse Oximetry 97 Intake & Output 01/26/18 01/27/18 01/27/18 18:59 06:59 18:59 Intake Total 480 / 480 840 / 840 360 / 360 Output Total 2 / 2 Balance 480 / 480 838 / 838 360 / 360 Intake: Oral 480 / 480 840 / 840 360 / 360 Output: Urine / Other: # Voids 3 Narrative: GENERAL: Well-nourished, well-developed adult female in no obvious distress. SKIN: Warm and dry. HEAD: Atraumatic. Normocephalic. CARDIOVASCULAR: Regular rate and rhythm. RESPIRATORY: No accessory muscle use. Clear to auscultation. Breath sounds equal bilaterally. GASTROINTESTINAL: Abdomen soft, non-tender, distended. Positive bowel sounds. MUSCULOSKELETAL: Extremities without clubbing, cyanosis. Generalized edema bilateral feet; non-pitting. Left ankle nontender with normal range of motion and no obvious deformity. Both ankles and feet in Edison wrap NEUROLOGICAL: Awake and alert. No obvious cranial nerve deficits. Motor grossly within normal limits. Normal speech. PSYCHIATRIC: Mildly agitated; insight and judgment poor. Results - Labs CBC & Chem 7: 01/15/18 12:21 01/24/18 11:55 Laboratory Results - last 24 hr 01/27/18 07:13 Total Creatine Kinase 159 Assessment and Plan - Plan This is a 21-year-old female with past medical history significant for schizophrenia, catatonic type, bipolar disorder, cannabis use disorder who was admitted to inpatient psychiatry secondary to mental decompensation with disorganized thought process, bizarre thinking and hyper religiosity after her schizophrenic medications were discontinued by her parents 2 months ago and who has since been admitted to [facility] for worsening mental status and bilateral lower extremity edema. Hospitalist services consulted for evaluation and management. Schizophrenia, catatonic type Bipolar disorder -Management per psychiatry Bilateral lower extremity edema, improved -Doppler studies negative for DVT -2D echocardiogram with EF 55-60%, trivial pulmonary valve regurgitation -Recommend leg elevation when possible -Bilateral OKSANA hose on when up OOB, trace edema noted on exam today, likely from increased activity and ambulation. -continue with PT -continue to monitor Rhabdomyolysis; improved Suspect secondary to dehydration/poor oral intake and increased agitation -CK 670-->607-->365 on 01/25 -Hypernatremia, resolved -IV fluids ordered but nursing staff is been unable to give patient IVs as she is continually pulled out multiple IVs -Continue to encourage p.o. fluid intake -Monitor CK levels. Tachycardia; chronic Patient does not appear to have any chest pain complaints EKG shows sinus tach -Ongoing tachycardia, she has been compliant with metoprolol 50mg BID. -Tachycardia secondary to restlessness. Possible aspiration pneumonia; resolved CXR reveals basilar airspace disease predominantly on the left, concern for aspiration pneumonia. -Initially treated with IV Zosyn and Flagyl. Duonebs scheduled. Acapella and IS. Transitioned over to p.o. Augmentin to complete on 01/21. -Past swallow evaluation with recommendations for mechanical soft diet with thin liquids, aspiration precautions. -No cough present, afebrile, oxygen saturation stable on room air. Hypokalemia; resolved - s/p replacement IV replacement 01/14 -Continue KCl p.o. replacement, potassium level WNL -Stable; monitor. DVT prophylaxis -Patient is ambulatory.
[2018-01-27] MEDS: Nystatin 100,000 UNITS/GM Powder 15 GM Bottle TOPICAL SCH ×2 (16:14→21:01)
[2018-01-27] MEDS: ALPRAZolam 0.5 MG Tablet PO PRN (21:01)
[2018-01-28] MEDS: ALPRAZolam 0.5 MG Tablet PO PRN ×2 (04:14→18:25)
[2018-01-28] MEDS: Acetaminophen 325 MG Tablet PO PRN (09:42)
[2018-01-28] MEDS: Metoprolol Tartrate 50 MG Tablet PO SCH ×2 (09:43→20:51)
[2018-01-28] MEDS: Nystatin 100,000 UNITS/GM Powder 15 GM Bottle TOPICAL SCH ×2 (09:44→20:53)
--- NOTE | 2018-01-28 09:58 | P.PN ---
Subjective Interval history: Follow-up schizophrenia, rhabdomyolysis, tachycardia. Patient seen and examined , sitting in room in no apparent distress. Patient is smiling, pleasant, denies any pain or acute changes overnight. Has been eating and drinking well. Vital signs stable. No change in clinical condition. Denies any chest pain or shortness of breath. Physical Exam Vital signs: Vital Signs 01/27/18 18:15 01/28/18 05:57 Temperature 99.3 F 98.7 F Pulse Rate 118 H 107 H Respiratory Rate 19 16 Blood Pressure 128/62 92/53 L Pulse Oximetry 99 96 Intake & Output 01/27/18 01/28/18 01/28/18 18:59 06:59 18:59 Intake Total 960 / 960 820 / 820 Balance 960 / 960 820 / 820 Weight 76.3 kg Intake: Oral 960 / 960 720 / 720 Oral Supplement 100 / 100 Other: # Voids 2 Date of Last Bowel Movement 01/22/18 Narrative: GENERAL: Well-nourished, well-developed adult female in no obvious distress. SKIN: Warm and dry. HEAD: Atraumatic. Normocephalic. CARDIOVASCULAR: Regular rate and rhythm. RESPIRATORY: No accessory muscle use. Clear to auscultation. Breath sounds equal bilaterally. GASTROINTESTINAL: Abdomen soft, non-tender, distended. Positive bowel sounds. MUSCULOSKELETAL: Extremities without clubbing, cyanosis. Generalized edema bilateral feet; non-pitting. Left ankle nontender with normal range of motion and no obvious deformity. NEUROLOGICAL: Awake and alert. No obvious cranial nerve deficits. Motor grossly within normal limits. Normal speech. PSYCHIATRIC: Mildly agitated; insight and judgment poor. Results - Labs CBC & Chem 7: 01/28/18 12:22 01/24/18 11:55 Assessment and Plan - Plan This is a 21-year-old female with past medical history significant for schizophrenia, catatonic type, bipolar disorder, cannabis use disorder who was admitted to inpatient psychiatry secondary to mental decompensation with disorganized thought process, bizarre thinking and hyper religiosity after her schizophrenic medications were discontinued by her parents 2 months ago and who has since been admitted to [facility] psych for worsening mental status and bilateral lower extremity edema. Hospitalist services consulted for evaluation and management. Schizophrenia, catatonic type Bipolar disorder -Management per psychiatry Bilateral lower extremity edema, improved -Doppler studies negative for DVT -2D echocardiogram with EF 55-60%, trivial pulmonary valve regurgitation -Recommend leg elevation when possible -Bilateral OKSANA hose on when up OOB, trace edema noted on exam today, likely from increased activity and ambulation. -continue with PT -continue to monitor Rhabdomyolysis; improved Suspect secondary to dehydration/poor oral intake and increased agitation -CK 670-->607-->365 on 01/25 -Hypernatremia, resolved -IV fluids ordered but nursing staff is been unable to give patient IVs as she is continually pulled out multiple IVs -Continue to encourage p.o. fluid intake tolerating well. -Monitor CK levels. Tachycardia; chronic Patient does not appear to have any chest pain complaints EKG shows sinus tach -Ongoing tachycardia, she has been compliant with metoprolol 50mg BID. -Tachycardia secondary to restlessness. Possible aspiration pneumonia; resolved CXR reveals basilar airspace disease predominantly on the left, concern for aspiration pneumonia. -Initially treated with IV Zosyn and Flagyl. Duonebs scheduled. Acapella and IS. Transitioned over to p.o. Augmentin to complete on 01/21. -Past swallow evaluation with recommendations for mechanical soft diet with thin liquids, aspiration precautions. -No cough present, afebrile, oxygen saturation stable on room air. Hypokalemia; resolved - s/p replacement IV replacement 01/14 -Continue KCl p.o. replacement, potassium level WNL -Stable; monitor. DVT prophylaxis -Patient is ambulatory.
--- NOTE | 2018-01-28 10:00 | P.PNPSY ---
Subjective Remarks: Patient seen and examined with nurse. Chart reviewed. Patient ate 75-100% of meals yesterday. She only slept 5 hours overnight. Case discussed with nursing staff. Case discussed in treatment team. On my examination today, the patient is ambulating around the unit with her one-to-one sitter. She is speaking in complete sentences. She tells me that she likes a cartoon character by the name of "Bebeto Rader." She appears less internally stimulated and is more focused on our conversation. She denies SI/HI/AVH. No side effects from medications. No physical complaints. Vital Signs Temp Pulse Resp BP Pulse Ox 01/28/18 05:57 98.7 F 107 H 16 92/53 L 96 01/27/18 18:15 99.3 F 118 H 19 128/62 99 Intake and Output 01/27/18 01/28/18 01/28/18 22:59 06:59 14:59 Intake Total 240 / 240 820 / 820 Balance 240 / 240 820 / 820 Intake: Oral 240 / 240 720 / 720 Oral Supplement 100 / 100 Other: # Voids 2 Date of Last Bowel Movement 01/22/18 Weight 76.3 kg Laboratory Results - last 24 hr 01/28/18 12:22 WBC 11.4 H RBC 4.07 Hgb 12.9 Hct 38.5 MCV 94.6 MCH 31.6 MCHC 33.4 RDW 14.2 Plt Count 267 MPV 8.8 Neut % (Auto) 74.1 H Lymph % (Auto) 17.6 [place] % (Auto) 7.0 Eos % (Auto) 0.9 Baso % (Auto) 0.4 Neut # (Auto) 8.4 H Lymph # (Auto) 2.0 [place] # (Auto) 0.8 Eos # (Auto) 0.1 Baso # (Auto) 0.0 WBC Differential . Differential Comment Auto diff final Labs reviewed. Mild leukocytosis noted. Review of Systems unobtainable due to mental condition Mental Status Examination Appearance: Other (Fair grooming.) Consciousness: Asleep Orientation: Person Motor Activity: Other (No motor abnormalities noted) Speech: Unremarkable Language: Other (Speaking in complete sentences) Fund of Knowledge: Inadequate Attention and Concentration: Easily distracted Memory: Impaired Mood: Other (Calmer) Affect: Other (More appropriate) Thought Process & Associations: Tangential Thought Content: Bizarre thinking Hallucination Type: Other (Less internally stimulated) Delusion Type: None Suicidal Ideation: No Homicidal Ideation: No Insight: Poor Judgment: Poor Assessment and Plan - Assessment (1) Bipolar affective disorder, currently manic, severe, with psychotic features Code(s): F31.2 - Bipolar disorder, current episode manic severe with psychotic features Status: Acute - Plan Plan: Titrate Lunesta to 2 mg at bedtime to help with sleep. Continue Zyprexa as ordered. Continue to monitor on the medical psychiatric unit. Hospitalist input noted and appreciated. Continue other medications and care as ordered. Justification for Continued Inpatient Stay: Medication changes. High risk for decompensation in less restrictive setting. Discharge Planning: Anticipate discharge home with family on 02/03 Request Healthcare Surrogate/Guardian Advocate?: Yes
[2018-01-28 12:48] LABS: Baso % (Auto) 0.4 % (0.0-2.0); Eos # (Auto) 0.1 th/mm3 (0.0-0.4); Eos % (Auto) 0.9 % (0.0-4.0); Hematocrit 38.5 % (35.0-46.0); Hemoglobin 12.9 gm/dL (11.6-15.3); Lymph % (Auto) 17.6 % (9.0-44.0); Mean Corpuscular HGB Conc 33.4 % (32.0-36.0); Mean Corpuscular Hemoglobin 31.6 pg (27.0-34.0); Mean Corpuscular Volume 94.6 fL (80.0-100.0); Mean Platelet Volume 8.8 fL (7.0-11.0); Mono # (Auto) 0.8 th/mm3 (0.0-0.9); Neut # (Auto) 8.4 th/mm3 (1.8-7.7); Neut % (Auto) 74.1 % (16.0-70.0); Platelet Count 267 th/mm3 (150-450); Red Blood Count 4.07 mil/mm3 (4.00-5.30); Red Cell Distribution Width 14.2 % (11.6-17.2); White Blood Count 11.4 th/mm3 (4.0-11.0)
[2018-01-29] MEDS: Metoprolol Tartrate 50 MG Tablet PO SCH ×2 (09:25→20:38)
--- NOTE | 2018-01-29 09:28 | P.PNPSY ---
Subjective Remarks: Patient seen and examined with sitter (today, nurse Catarina). Chart reviewed. Patient ate 100%/50%/75% of meals yesterday and slept 5 hours overnight. Case discussed with nursing staff. On my examination today, patient presents as quite lucid. We have an extended conversation. She says that she is feeling "calm now." She says that her goal is to color more and pain more. She denies any AVH. No side effects from medications. Complains of some mild dyspepsia but denies any dysuria or bowel issues. Vital Signs Temp Pulse BP Pulse Ox 01/28/18 18:12 98.4 F 107 H 123/71 96 Intake and Output 01/28/18 01/29/18 01/29/18 22:59 06:59 14:59 Intake Total 2500 / 2500 Balance 2500 / 2500 Intake: Oral 2400 / 2400 Oral Supplement 100 / 100 Other: # Voids 2 1 Date of Last Bowel Movement 01/22/18 Laboratory Results - last 24 hr 01/28/18 01/28/18 12:22 12:22 WBC 11.4 H RBC 4.07 Hgb 12.9 Hct 38.5 MCV 94.6 MCH 31.6 MCHC 33.4 RDW 14.2 Plt Count 267 MPV 8.8 Neut % (Auto) 74.1 H Lymph % (Auto) 17.6 [place] % (Auto) 7.0 Eos % (Auto) 0.9 Baso % (Auto) 0.4 Neut # (Auto) 8.4 H Lymph # (Auto) 2.0 [place] # (Auto) 0.8 Eos # (Auto) 0.1 Baso # (Auto) 0.0 WBC Differential . Differential Comment Auto diff final Sodium Cancelled Potassium Cancelled Chloride Cancelled Carbon Dioxide Cancelled Anion Gap Cancelled BUN Cancelled Creatinine Cancelled Estimated GFR Cancelled Random Glucose Cancelled Calcium Cancelled Prot Corrected Calcium Cancelled Total Bilirubin Cancelled AST Cancelled ALT Cancelled Alkaline Phosphatase Cancelled Total Protein Cancelled Albumin Cancelled Labs reviewed. Review of Systems All other systems reviewed negative except as stated in HPI (Limitation: Poor historian) Mental Status Examination Appearance: Other (Fair grooming.) Consciousness: Alert Orientation: Person, Place Motor Activity: Other (No abnormal motor movements noted) Speech: Unremarkable Language: Adequate Fund of Knowledge: Adequate Attention and Concentration: Other (Much improved) Memory: Impaired Mood: Appropriate Affect: Blunt Thought Process & Associations: Intact Thought Content: Appropriate Hallucination Type: None Delusion Type: None Suicidal Ideation: No Suicidal Plan: No Suicidal Intention: No Homicidal Ideation: No Homicidal Plan: No Homicidal Intention: No Insight: Poor Judgment: Poor Assessment and Plan - Assessment (1) Bipolar affective disorder, currently manic, severe, with psychotic features Code(s): F31.2 - Bipolar disorder, current episode manic severe with psychotic features Status: Acute - Plan Plan: Patient's mental status seems much improved today. Hopefully this improvement will persist. Continue current psychotropics as ordered. Continue to monitor on medical psychiatric unit. Hospitalist to follow up for physical complaints. Continue other medications and care as ordered. Justification for Continued Inpatient Stay: Risk for decompensation in less restrictive environment. Discharge Planning: Anticipate discharge home with family beginning of next week. Case discussed with counselor who will reach out to family today. Request Healthcare Surrogate/Guardian Advocate?: Yes
[2018-01-29] MEDS: ALPRAZolam 0.5 MG Tablet PO PRN ×3 (09:46→20:38)
--- NOTE | 2018-01-29 09:55 | P.PN ---
Subjective Interval history: Follow-up schizophrenia, rhabdomyolysis, tachycardia. Patient seen and examined , patient is agitated, walking the halls and manic. Patient does not engage in conversation. Spoke to RN, complaints of left foot pain. She does still have continued bilateral lower extremity swelling. Patient is tolerating p.o. intake well Physical Exam Vital signs: Vital Signs 01/28/18 18:12 Temperature 98.4 F Pulse Rate 107 H Blood Pressure 123/71 Pulse Oximetry 96 Intake & Output 01/28/18 01/29/18 01/29/18 18:59 06:59 18:59 Intake Total 2160 / 2160 340 / 340 Balance 2160 / 2160 340 / 340 Intake: Oral 2160 / 2160 240 / 240 Oral Supplement 100 / 100 Other: # Voids 2 1 Date of Last Bowel Movement 01/22/18 01/22/18 Narrative: GENERAL: Well-nourished, well-developed adult female in no obvious distress. SKIN: Warm and dry. HEAD: Atraumatic. Normocephalic. CARDIOVASCULAR: Regular rate and rhythm. RESPIRATORY: No accessory muscle use. Clear to auscultation. Breath sounds equal bilaterally. GASTROINTESTINAL: Abdomen soft, non-tender, distended. Positive bowel sounds. MUSCULOSKELETAL: Extremities without clubbing, cyanosis. Generalized edema bilateral feet; non-pitting. Left ankle nontender with normal range of motion and no obvious deformity. NEUROLOGICAL: Awake and alert. No obvious cranial nerve deficits. Motor grossly within normal limits. Normal speech. PSYCHIATRIC: Mildly agitated; insight and judgment poor. Results - Labs CBC & Chem 7: 01/28/18 12:22 01/24/18 11:55 Laboratory Results - last 24 hr 01/28/18 01/28/18 12:22 12:22 WBC 11.4 H RBC 4.07 Hgb 12.9 Hct 38.5 MCV 94.6 MCH 31.6 MCHC 33.4 RDW 14.2 Plt Count 267 MPV 8.8 Neut % (Auto) 74.1 H Lymph % (Auto) 17.6 [place] % (Auto) 7.0 Eos % (Auto) 0.9 Baso % (Auto) 0.4 Neut # (Auto) 8.4 H Lymph # (Auto) 2.0 [place] # (Auto) 0.8 Eos # (Auto) 0.1 Baso # (Auto) 0.0 WBC Differential . Differential Comment Auto diff final Sodium Cancelled Potassium Cancelled Chloride Cancelled Carbon Dioxide Cancelled Anion Gap Cancelled BUN Cancelled Creatinine Cancelled Estimated GFR Cancelled Random Glucose Cancelled Calcium Cancelled Prot Corrected Calcium Cancelled Total Bilirubin Cancelled AST Cancelled ALT Cancelled Alkaline Phosphatase Cancelled Total Protein Cancelled Albumin Cancelled Assessment and Plan - Plan This is a 21-year-old female with past medical history significant for schizophrenia, catatonic type, bipolar disorder, cannabis use disorder who was admitted to inpatient psychiatry secondary to mental decompensation with disorganized thought process, bizarre thinking and hyper religiosity after her schizophrenic medications were discontinued by her parents 2 months ago and who has since been admitted to [facility] for worsening mental status and bilateral lower extremity edema. Hospitalist services consulted for evaluation and management. Schizophrenia, catatonic type Bipolar disorder -Management per psychiatry Bilateral lower extremity edema, improved -Doppler studies negative for DVT -2D echocardiogram with EF 55-60%, trivial pulmonary valve regurgitation -Recommend leg elevation when possible -Bilateral OK[place] hose on when up OOB, trace edema noted on exam today, likely from increased activity and ambulation. -continue with PT -continue to monitor Left foot pain -Will obtain left foot x-ray. Follow. Rhabdomyolysis; improved Suspect secondary to dehydration/poor oral intake and increased agitation -CK 670-->607-->365 on 01/25 -Hypernatremia, resolved. -IV fluids ordered but nursing staff is been unable to give patient IVs as she is continually pulled out multiple IVs -Continue to encourage p.o. fluid intake, tolerating well. Tachycardia; chronic Patient does not appear to have any chest pain complaints EKG shows sinus tach -Ongoing tachycardia, she has been compliant with metoprolol 50mg BID. -Tachycardia secondary to restlessness. Possible aspiration pneumonia; resolved CXR reveals basilar airspace disease predominantly on the left, concern for aspiration pneumonia. -Initially treated with IV Zosyn and Flagyl. Duonebs scheduled. Acapella and IS. Transitioned over to p.o. Augmentin completed on 01/21. -Past swallow evaluation with recommendations for mechanical soft diet with thin liquids, aspiration precautions. -No cough present, afebrile, oxygen saturation stable on room air. Hypokalemia; resolved - s/p replacement IV replacement 01/14 -Continue KCl p.o. replacement, potassium level WNL -Stable; monitor. DVT prophylaxis -Patient is ambulatory.
--- NOTE | 2018-01-29 11:27 | XR ---
EXAM DATE: 01/29/2018 11:19 AM EDT AGE/SEX: 22 years / Female INDICATIONS: Left foot pain. No known injury. CLINICAL DATA: This is the patient's subsequent encounter. Patient reports that signs and symptoms h ave been present for 1 week and indicates a pain score of 5/10. MEDICAL/SURGICAL HISTORY: None. None. COMPARISON: No prior exams available for comparison. FINDINGS: Bony structures are intact and in normal alignment. Osseous density is normal. Soft tissues are unre markable. No radiopaque foreign bodies seen. CONCLUSION: Negative exam with no underlying bony abnormality. Electronically signed by: John Jeong MD 01/29/2018 11:25 AM EDT
[2018-01-29] MEDS: Benzonatate 100 MG Capsule PO PRN (19:33)
[2018-01-30] MEDS: Nystatin 100,000 UNITS/GM Powder 15 GM Bottle TOPICAL SCH ×3 (00:13→23:22)
[2018-01-30] MEDS: Metoprolol Tartrate 50 MG Tablet PO SCH ×2 (09:19→23:22)
--- NOTE | 2018-01-30 09:45 | P.PN ---
Subjective Interval history: Follow-up schizophrenia, rhabdomyolysis, tachycardia. Patient seen and examined in her room with RN at bedside. Patient is less hyperactive today, is calm and pleasant. Patient denies any acute events overnight. Left foot x-ray negative. Doing well overall. Vital signs are stable with tachycardia. Patient has been eating well and drinking well denies any abdominal pain nausea or vomiting. Physical Exam Vital signs: Vital Signs 01/29/18 18:18 Temperature 97.2 F L Pulse Rate 125 H Respiratory Rate 19 Blood Pressure 135/85 Pulse Oximetry 97 Intake & Output 01/29/18 01/30/18 01/30/18 18:59 06:59 18:59 Intake Total 3240 / 3240 120 / 120 Balance 3240 / 3240 120 / 120 Intake: Oral 3240 / 3240 120 / 120 Oral Supplement 0 / 0 Other: # Voids 2 Date of Last Bowel Movement 01/22/18 Narrative: GENERAL: Well-nourished, well-developed adult female in no obvious distress. SKIN: Warm and dry. HEAD: Atraumatic. Normocephalic. CARDIOVASCULAR: Regular rate and rhythm. RESPIRATORY: No accessory muscle use. Clear to auscultation. Breath sounds equal bilaterally. GASTROINTESTINAL: Abdomen soft, non-tender, distended. Positive bowel sounds. MUSCULOSKELETAL: Extremities without clubbing, cyanosis. Generalized edema bilateral feet; non-pitting. NEUROLOGICAL: Awake and alert. No obvious cranial nerve deficits. Motor grossly within normal limits. Normal speech. PSYCHIATRIC: Mildly agitated; insight and judgment poor. Results - Labs CBC & Chem 7: 01/28/18 12:22 01/24/18 11:55 - Imaging Impressions Foot X-Ray 01/29/18 00:00 CONCLUSION: Negative exam with no underlying bony abnormality. Assessment and Plan - Plan This is a 21-year-old female with past medical history significant for schizophrenia, catatonic type, bipolar disorder, cannabis use disorder who was admitted to inpatient psychiatry secondary to mental decompensation with disorganized thought process, bizarre thinking and hyper religiosity after her schizophrenic medications were discontinued by her parents 2 months ago and who has since been admitted to [facility] psych for worsening mental status and bilateral lower extremity edema. Hospitalist services consulted for evaluation and management. Schizophrenia, catatonic type Bipolar disorder -Management per psychiatry Bilateral lower extremity edema, improved -Doppler studies negative for DVT -2D echocardiogram with EF 55-60%, trivial pulmonary valve regurgitation -Recommend leg elevation when possible -Bilateral OK[place] hose on when up OOB, trace edema noted on exam, likely from increased activity and ambulation. -continue with PT Left foot pain -Left foot x-ray negative. Pain is improved today. Patient has been very mobile and active, spoke to RN he states that she does not keep her shoes on and the pain may be due to lack of shoe support. Rhabdomyolysis; improved Suspect secondary to dehydration/poor oral intake and increased agitation -CK 670-->607-->365-->159. -Hypernatremia, resolved. -IV fluids ordered but nursing staff is been unable to give patient IVs as she is continually pulled out multiple IVs -Continue to encourage p.o. fluid intake, tolerating well. Tachycardia; chronic Patient does not appear to have any chest pain complaints EKG shows sinus tach -Ongoing tachycardia, she has been compliant with metoprolol 50mg BID. -Tachycardia secondary to restlessness. Possible aspiration pneumonia; resolved CXR reveals basilar airspace disease predominantly on the left, concern for aspiration pneumonia. -Initially treated with IV Zosyn and Flagyl. Duonebs scheduled. Acapella and IS. Transitioned over to p.o. Augmentin completed on 01/21. -Past swallow evaluation with recommendations for mechanical soft diet with thin liquids, aspiration precautions. -No cough present, afebrile, oxygen saturation stable on room air. Hypokalemia; resolved - s/p replacement IV replacement 01/14 -Continue KCl p.o. replacement, potassium level WNL -Stable; monitor. DVT prophylaxis -Patient is ambulatory. Patient is stable at this time. Rhabdomyolysis improved. Patient tolerating p.o. intake well with no nausea, vomiting. Imaging of left foot negative. Patient does not need any further medical intervention at this time. Will sign off, please reconsult if needed.
--- NOTE | 2018-01-30 11:27 | P.PNPSY ---
Subjective Remarks: Patient seen and examined with comfort, who today is nurse Boyd, during fresh air. Chart reviewed. Case discussed with staff. Occupational therapist notes patient is experiencing periods of increased lucidity in his interactions with patient. On my examination today, patient is a little hyperkinetic. She races around. Speech is coherent, but she does not elaborate as much as yesterday. Affect is generally euthymic. No medication side effects. No physical complaints. Vital Signs Temp Pulse Resp BP Pulse Ox 01/29/18 18:18 97.2 F L 125 H 19 135/85 97 Intake and Output 01/30/18 01/30/18 01/30/18 06:59 14:59 22:59 Intake Total 120 / 120 Balance 120 / 120 Intake: Oral 120 / 120 Other: # Voids 2 Date of Last Bowel Movement 01/22/18 Labs reviewed. No new labs. Review of Systems All other systems reviewed negative except as stated in HPI (Limitation: Poor historian) Mental Status Examination Appearance: Other (Fair grooming.) Consciousness: Alert Orientation: Person, Place Motor Activity: Other (Somewhat hyperkinetic, no other motoric abnormalities noted.) Speech: Unremarkable Language: Adequate Fund of Knowledge: Adequate Attention and Concentration: Other (Fair) Memory: Impaired Mood: Appropriate Affect: Appropriate Thought Process & Associations: Circumstantial Thought Content: Appropriate Hallucination Type: None Delusion Type: None Suicidal Ideation: No Suicidal Plan: No Suicidal Intention: No Homicidal Ideation: No Homicidal Plan: No Homicidal Intention: No Insight: Poor Judgment: Poor Assessment and Plan - Assessment (1) Bipolar affective disorder, currently manic, severe, with psychotic features Code(s): F31.2 - Bipolar disorder, current episode manic severe with psychotic features Status: Acute - Plan Plan: Patient only slept 2 hours last night. Titrate Lunesta 3 mg at bedtime to try to improve sleep quality. I will continue Zyprexa as ordered, and patient's guardian advocate has made clear that he wishes to continue with Zyprexa alone as patient's main psychotropic for now. Continue to monitor on the inpatient unit. Continue other medications and care as ordered. Justification for Continued Inpatient Stay: Risk for decompensation in less restrictive environment. Medication changes. Discharge Planning: Possible discharge into family's care after the weekend. Request Healthcare Surrogate/Guardian Advocate?: Yes
[2018-01-30] MEDS: ALPRAZolam 0.5 MG Tablet PO PRN (13:17)
--- NOTE | 2018-01-30 13:48 | P.DIET ---
Nutritional Evaluation Type of nutrition evaluation: follow-up Nutrition consult regarding: Diet Evaluation Nutrition screening: Poor PO Intake, [place] [facility] [place] Subjective Barriers to Nutrition: Refuses to eat at times Oral Diet Tolerance Assessment Indicates: Swallowing problems Objective - Diagnosis Unspecified Psychosis - Objective % IBW: 147 Body Weight Used for Calculations: IBW Energy Needs - Lower Range (kCal/kg): 28 Energy Needs - Upper Range (kCal/kg): 33 Lower Limit kCal/kg (kCals): 1,591 Upper Limit kCal/kg (kCals): 1,874 Lower Limit Protein Factor (Grams per Kg): 1.4 Upper Limit Protein Factor (Grams per Kg): 1.6 Lower Protein Needs (Protein): 80 Upper Protein Needs (Protein): 91 Fluid Factor (ml/kg): 33 Estimated Fluid Needs (ml): 1,874 Dietitian Reviewed in Medical Record: Current diet, Curent medications, Intake & Output, Labs Diet Order: [facility] Soft Oral Diet Intake Amount: Good 75-90% Speech Therapy Recommendations: Yes (Regular) Objective Comments: PMH: Schizophrenia-catatonic type, bipolar DO, Cannabis Use DO Labs include: TCK 159, HgA1C 5.0 LBM(01/22) Feeding - Current PO Supplement Current Supplement: Ensure Enlive Current Supplement Flavor: Chocolate Current Frequency of Supplement: Three times a day Current kCals Provided by Supplement: 350 Current Protein Provided by Supplement: 20 Assessment Assessment: Pt followed up for assessment of po intake. Pt's po intake has been 50-100% for the past 6 days with the exception of 2 meals. Pt's weight was 76.3kg on 01/28 which is up from admission. Continue chocolate milk and milk. Continue Ensure Enlive tid. Rec a Multiple Vitamin supplement. Dietitian following. Recommendations: 1.Pt needs encouragement w/meals 2.Continue chocolate milk and milk 3.Continue Ensure Enlive tid 4.Rec a Multiple Vitamin supplement Dietitian to Monitor: Lab values, Supplement acceptance, Intake & Output, Weight change, PO Intake
[2018-01-30] MEDS: Acetaminophen 325 MG Tablet PO PRN (15:12)
[2018-01-31] MEDS: Metoprolol Tartrate 50 MG Tablet PO SCH ×2 (08:08→21:28)
[2018-01-31] MEDS: Nystatin 100,000 UNITS/GM Powder 15 GM Bottle TOPICAL SCH ×2 (08:11→21:28)
[2018-01-31] MEDS: ALPRAZolam 0.5 MG Tablet PO PRN ×2 (09:44→21:28)
--- NOTE | 2018-01-31 12:32 | P.PNPSY ---
Subjective Remarks: Patient seen and examined with sitter. Chart reviewed. Nutrition and sleep logs reviewed. Case discussed with nursing staff. Nursing reports that patient was not given Zyprexa in the afternoon or evening yesterday, ostensibly due to sedation although patient is charted as having slept only 2 hours. In any event, patient is now more agitated this morning, and I did order her medicated with Zyprexa 5mg IM ETO. On my evaluation, patient is racing around the day area. She does have a steady gait. Thought process is a little more disorganized today but still much improved overall. No side effects from medications. No physical complaints. Spoke with patient's brother/GA. He still wishes to have patient home to convalesce on Saturday. We discuss the discharge plan. Vital Signs Resp 01/31/18 09:34 16 01/30/18 22:17 16 Intake and Output 01/31/18 01/31/18 01/31/18 06:59 14:59 22:59 Intake Total 0 / 0 Balance 0 / 0 Intake: Oral 0 / 0 Other: # Voids 0 Date of Last Bowel Movement 01/22/18 Labs reviewed. No new labs. Review of Systems unobtainable due to mental condition Mental Status Examination Appearance: Other (Fair grooming.) Consciousness: Alert Orientation: Person, Place Motor Activity: Other (Remains hyperkinetic. No motoric abnormalities noted otherwise.) Speech: Rapid Language: Other (Rambling) Fund of Knowledge: Adequate Attention and Concentration: Other (Fair) Memory: Impaired Mood: Appropriate Affect: Appropriate Thought Process & Associations: Tangential, Other (Disorganized at times) Thought Content: Appropriate Hallucination Type: None Delusion Type: None Suicidal Ideation: No Homicidal Ideation: No Insight: Poor Judgment: Poor Assessment and Plan - Assessment (1) Bipolar affective disorder, currently manic, severe, with psychotic features Code(s): F31.2 - Bipolar disorder, current episode manic severe with psychotic features Status: Acute - Plan Plan: Continue current psychotropic medications as ordered. Continue to monitor on the inpatient unit. Continue other medications and care as ordered. Justification for Continued Inpatient Stay: Risk for decompensation Discharge Planning: Possible discharge in the family's care on Saturday Request Healthcare Surrogate/Guardian Advocate?: Yes
[2018-02-01] MEDS: Metoprolol Tartrate 50 MG Tablet PO SCH ×2 (11:23→21:00)
[2018-02-01] MEDS: Nystatin 100,000 UNITS/GM Powder 15 GM Bottle TOPICAL SCH (11:24)
--- NOTE | 2018-02-01 18:46 | P.PNPSY ---
Subjective Chief Complaint: Rounded on patient Yasemin RN. Night staff reports that patient did not sleep throughout the entire night. She was given Ativan IM at approximately midnight which only settle her for about an hour. When I arrived in the morning she was screaming and uncooperative. She was moved to a chair and reoriented. She did stop screaming when staff engaged with her. She stated she was hungry and she started to eat her breakfast. She is alert to self but does not answer questions appropriately. She is easily distracted and has poor concentration. Patient appears internally stimulated. Per chart psychiatrist is working closely with the family regarding medication management. Remarks: Patient was seen and case discussed with nursing. Patient remains elated and internally stimulated during the exam. She continues with manic behaviors she is walking on her tippy toes and singing throughout the day. She has not had any outbursts and is compliant with her medications Mental Status Examination Appearance: Other (Fair grooming.) Consciousness: Alert Orientation: Person, Place Motor Activity: Other (Remains hyperkinetic. No motoric abnormalities noted otherwise.) Speech: Rapid Language: Other (Rambling) Fund of Knowledge: Adequate Attention and Concentration: Other (Fair) Memory: Impaired Mood: Appropriate Affect: Appropriate Thought Process & Associations: Tangential, Other (Disorganized at times) Thought Content: Appropriate Hallucination Type: None Delusion Type: None Suicidal Ideation: No Suicidal Plan: No Suicidal Intention: No Homicidal Ideation: No Homicidal Plan: No Homicidal Intention: No Insight: Poor Judgment: Poor Assessment and Plan - Assessment (1) Bipolar affective disorder, currently manic, severe, with psychotic features Code(s): F31.2 - Bipolar disorder, current episode manic severe with psychotic features Status: Acute - Plan Plan: Continue current treatment plan Justification for Continued Inpatient Stay: Patient would decompensate in a less restrictive setting Request Healthcare Surrogate/Guardian Advocate?: Yes
[2018-02-01] MEDS: ALPRAZolam 0.5 MG Tablet PO PRN (21:00)
[2018-02-02] MEDS: ALPRAZolam 0.5 MG Tablet PO PRN (07:39)
[2018-02-02] MEDS: Metoprolol Tartrate 50 MG Tablet PO SCH ×2 (08:14→20:00)
[2018-02-02] MEDS: Nystatin 100,000 UNITS/GM Powder 15 GM Bottle TOPICAL SCH ×2 (08:15→20:00)
--- NOTE | 2018-02-02 17:47 | P.PNPSY ---
Subjective Chief Complaint: Rounded on patient Yasemin RN. Night staff reports that patient did not sleep throughout the entire night. She was given Ativan IM at approximately midnight which only settle her for about an hour. When I arrived in the morning she was screaming and uncooperative. She was moved to a chair and reoriented. She did stop screaming when staff engaged with her. She stated she was hungry and she started to eat her breakfast. She is alert to self but does not answer questions appropriately. She is easily distracted and has poor concentration. Patient appears internally stimulated. Per chart psychiatrist is working closely with the family regarding medication management. Remarks: Pt was seen and case discussed with nursing. Pt continues to labile and internally stimulated. Goals include singing and drawing. Compliant with medications and tolerating it well Mental Status Examination Appearance: Other (Fair grooming.) Consciousness: Alert Orientation: Person, Place Motor Activity: Other (Remains hyperkinetic. No motoric abnormalities noted otherwise.) Speech: Rapid Language: Other (Rambling) Fund of Knowledge: Adequate Attention and Concentration: Other (Fair) Memory: Impaired Mood: Appropriate Affect: Appropriate Thought Process & Associations: Tangential, Other (Disorganized at times) Thought Content: Appropriate Hallucination Type: None Delusion Type: None Suicidal Ideation: No Suicidal Plan: No Suicidal Intention: No Homicidal Ideation: No Homicidal Plan: No Homicidal Intention: No Insight: Poor Judgment: Poor Assessment and Plan - Assessment (1) Bipolar affective disorder, currently manic, severe, with psychotic features Code(s): F31.2 - Bipolar disorder, current episode manic severe with psychotic features Status: Acute - Plan Plan: Continue current treatment plan Justification for Continued Inpatient Stay: Pt would decompensate in a less restrictive setting Request Healthcare Surrogate/Guardian Advocate?: Yes
[2018-02-02 18:36] VITALS: BP 133/57; PULSE 116; RESP 18; TEMP 98.7; O2SAT 97
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
[2018-02-03] MEDS: ALPRAZolam 0.5 MG Tablet PO PRN (08:48)
[2018-02-03] MEDS: Metoprolol Tartrate 50 MG Tablet PO SCH (08:49)
[2018-02-03] MEDS: Nystatin 100,000 UNITS/GM Powder 15 GM Bottle TOPICAL SCH (08:50)
== END 2018-02-03 18:40 | disposition home or self-care (01) ==
LOC: H270 12-22 09:11 → H4EA 01-06 18:31 → H260 01-08 16:45 → H4EA 01-11 15:27
PROVIDERS: ADMIT Psychiatry & Neurology Psychiatry; ATTEND Psychiatry & Neurology Psychiatry

== ENCOUNTER 2018-02-04 10:53 | Inpatient (IN) ==
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
[2018-02-04] MEDS ORDERED: Aluminum/Magnesium/Simethacone Susp 30 ML UDC PO PRN (12:08)
[2018-02-04] MEDS ORDERED: Bisacodyl 10 MG Supp RECTAL PRN (12:08)
[2018-02-04 13:57] LABS: Baso # (Auto) 0.1 th/mm3 (0.0-0.2); Baso % (Auto) 0.7 % (0.0-2.0); Eos # (Auto) 0.1 th/mm3 (0.0-0.4); Eos % (Auto) 1.6 % (0.0-4.0); Hematocrit 38.7 % (35.0-46.0); Hemoglobin 12.9 gm/dL (11.6-15.3); Lymph # (Auto) 1.8 th/mm3 (1.0-4.8); Lymph % (Auto) 21.8 % (9.0-44.0); Mean Corpuscular HGB Conc 33.4 % (32.0-36.0); Mean Corpuscular Hemoglobin 31.5 pg (27.0-34.0); Mean Corpuscular Volume 94.3 fL (80.0-100.0); Mean Platelet Volume 8.2 fL (7.0-11.0); Mono # (Auto) 0.5 th/mm3 (0.0-0.9); Mono % (Auto) 6.6 % (0.0-8.0); Neut # (Auto) 5.7 th/mm3 (1.8-7.7); Neut % (Auto) 69.3 % (16.0-70.0); Platelet Count 310 th/mm3 (150-450); Red Blood Count 4.11 mil/mm3 (4.00-5.30); Red Cell Distribution Width 13.4 % (11.6-17.2); White Blood Count 8.2 th/mm3 (4.0-11.0)
[2018-02-04 14:15] LABS: Anion Gap 9 meq/L (5-15); Blood Urea Nitrogen 9 mg/dL (7-18); Calcium 8.8 mg/dL (8.5-10.1); Carbon Dioxide 25.6 meq/L (21.0-32.0); Chloride 104 meq/L (98-107); Glomerular Filtration Rate Greater Than 89 mL/min (>89); Glucose,Random 90 mg/dL (74-106); Sodium 139 meq/L (136-145)
[2018-02-04] MEDS ORDERED: ALPRAZolam 0.5 MG Tablet PO PRN (14:26)
--- NOTE | 2018-02-04 14:44 | P.HPPSY ---
Provisional Diagnosis Admission Date: February 04, 2018 12:32 [place] I.: Schizoaffective disorder bipolar type vs bipolar disorder type I, current episode manic, with catatonic and psychotic features Competence Certification of Person's Competence To Provide Express and Informed Consent I have personally examined Kori Singer, a person being served at [facility] on, February 04, 2018 1429. Express and informed consent means consent voluntarily given in writing, by a competent person, after sufficient explanation and disclosure of the subject matter involved to enable the person to make a knowing and willful decision without any element of force, fraud, deceit, duress, or other form of constraint or coercion. This person is 18 years of age or older, is not now known to be incompetent to consent to treatment with a guardian advocate, and does not have a health care surrogate or proxy currently making medical treatment decisions. I have found this person to be one of the following: [] Competent to provide express and informed consent, as defined above, for voluntary admission to this facility and is competent to provide express and informed consent for treatment. He/she has the consistent capacity to make well reasoned, willful, and knowing decisions concerning his or her medical or mental health treatment. The person fully and consistently understands the purpose of the admission for examination/placement and is fully capable of personally exercising all rights assured under [place] [] Incompetent to provide express and informed consent to voluntary admission, and this is incompetent to provide express and informed consent to treatment. The person must be transferred to involuntary status and a petition for a guardian advocate filed with the Circuit Court. [x] Refusing to provide express and informed consent to voluntary admission but is competent to provide express and informed consent for treatment. The person must be discharged or transferred to involuntary status. Form shall be completed within 24 hours of a person's arrival at the receiving facility and filed in the clinical record of each person: 1. Admitted on a voluntary basis 2. Permitted to provide express and informed consent to his/her own treatment 3. Allowed to transfer from involuntary to voluntary status 4. Prior to permitting a person to consent to his or her own treatment after having been previously found incompetent to consent to treatment. 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 Khan, I have discussed the case with pain, with a important family psychiatric history of a brother with severe bipolar disorder and grandfather with schizophrenia, no significant medical history, who came to the emergency room brought today under [place] act, patient was found wandering the streets talking to people, very disorganized and disinhibited. Patient states her brother Calvin called 911 because she was a wild child. She states that the pillows are talking to her. She became quite disorganized and agitated in the ER. She was medicated with Geodon 10 mg IM and Ativan 2 mg IM in order to calm her down and for this reason she was unable to cooperate with a psychiatric evaluation at this moment. Past psychiatric history: She has a psychiatric history of bipolar disorder, schizophrenia, catatonia, 2 previous psychiatric hospitalizations, no previous suicide attempts. She was just discharged yesterday for the psychiatric unit, she was on Zyprexa 10 mg 3 times daily, Xanax 0.5 mg 3 times daily. Past medical history: She has no past medical Family psychiatric history: Her mother has schizophrenia, she has a brother with severe bipolar disorder Substance history: Patient has history of using marijuana Social history: Was born and raised in [place], she lives in [facility] with her brother and her parents, she is unemployed, college student, single her highest level of education is some college credits. - Inpatient Certification I certify that the inpatient services were ordered in accordance with Medicare regulations governing the order. This includes certification that hospital inpatient services are reasonable and necessary and in the case of services not specified as inpatient-only under 42 CFR 419.22(n), that they are appropriately provided as inpatient services in accordance to with the 2-midnight benchmark under 43 CFR 412.3(e) I certify that inpatient psychiatric hospital services are medically necessary. Evaluation and treatment and/or diagnostic testing are expected to improve the patient's condition. The patient needs on a daily basis, active treatment furnished directly by or requiring the supervision of inpatient psychiatric facility personnel. Estimated Total Length of Stay (Days): 7 Plans for Post Hospital Care: Home Review of Systems Constitutional: Denies anorexia, Denies body ache(s), Denies chills, Denies daytime sleepiness, Denies excessive sweating, Denies fatigue, Denies fever(s), Denies headache(s), Denies increased appetite, Denies lack of energy, Denies malaise, Denies night sweats, Denies weakness, Denies weight gain, Denies weight loss, Denies other Ears, Nose, Mouth, and Throat: Denies abnormal hearing, Denies bleeding gums, Denies bad breath, Denies change in voice, Denies dental pain, Denies difficulty swallowing, Denies dizziness, Denies dry mouth, Denies ear discharge , Denies ear pain, Denies facial pain, Denies headache(s), Denies hearing loss, Denies hoarseness, Denies lip swelling, Denies nosebleed, Denies mouth lesions, Denies mouth pain, Denies nasal congestion, Denies nasal discharge, Denies nasal obstruction, Denies nasal trauma, Denies neck lump, Denies neck pain, Denies nose pain, Denies pain with swallowing, Denies poor balance, Denies post nasal drip, Denies ringing in the ears, Denies sinus pain, Denies sinus pressure , Denies sore throat, Denies throat swelling, Denies tongue swelling, Denies other Cardiovascular: Denies chest pain, Denies chest pain at rest, Denies chest pain with activity, Denies excessive sweating, Denies fainting, Denies fast heart rate, Denies foot swelling, Denies generalized swelling, Denies irregular heart rhythm, Denies leg pain with activity, Denies leg sores, Denies leg swelling, Denies lightheadedness, Denies radiating jaw, neck or arm pain, Denies rapid, pounding, or irregular heartbeat, Denies shortness of breath, Denies shortness of breath with activity, Denies shortness of breath when lying down, Denies shortness of breath causing sudden awakening, Denies slow heart rate, Denies other Respiratory: Denies change in phlegm color, Denies chest congestion, Denies cough, Denies coughing up blood, Denies excessive phlegm production, Denies pain on inspiration, Denies pain with cough, Denies shortness of breath, Denies shortness of breath with activity, Denies snoring, Denies stridor, Denies wheezing, Denies other Gastrointestinal: Denies abdominal pain, Denies belching, Denies black, tarry stools, Denies bloating, Denies bright, red blood in stools, Denies change in bowel habits, Denies constant urge to pass stool, Denies change in stools, Denies coffee ground vomit, Denies constipation, Denies cramping, Denies difficulty swallowing, Denies excessive passing of gas, Denies feeling full early, Denies heartburn, Denies incontinent of stools, Denies loose stools, Denies nausea, Denies pain with swallowing, Denies vomiting, Denies vomiting blood, Denies other Musculoskeletal: Denies abnormal walking, Denies back pain, Denies body aches, Denies decreased muscle mass, Denies deformity, Denies joint pain, Denies joint swelling, Denies limited joint movement, Denies loss of height, Denies muscle cramps, Denies muscle weakness, Denies neck pain, Denies numbness, Denies radiating pain into limb, Denies stiffness, Denies tingling, Denies other Skin/Breast: Denies acne, Denies bleeding lesions, Denies boil, Denies breast swelling, Denies breast skin changes, Denies breast pain, Denies breast lump, Denies change in breast shape, Denies change in hair, Denies change in skin color, Denies changing lesions, Denies dry skin, Denies excessive hair growth, Denies hair loss, Denies itching, Denies lesions, Denies nail changes, Denies new lesions, Denies nipple discharge, Denies non-healing lesions, Denies redness , Denies sensitivity to light, Denies rash, Denies skin pain, Denies skin ulcer , Denies sores, Denies stretch woodard, Denies unusual bruising, Denies wounds, Denies yellowing of the skin, Denies other Neurologic: Denies abnormal hearing, Denies abnormal movements, Denies abnormal speech, Denies abnormal walking, Denies behavioral changes, Denies burning sensations, Denies confusion, Denies dizziness, Denies fainting, Denies frequent falls, Denies headache(s), Denies lack of coordination, Denies localized weakness, Denies loss of vision, Denies memory loss, Denies numbness, Denies other visual disturbances, Denies radiating pain, Denies restless legs, Denies convulsions, Denies seizure-like activity, Denies sensory deficit, Denies tingling, Denies tingling/numbness/burning sensations, Denies tremor(s), Denies unsteadiness, Denies weakness, Denies other Psychiatric: Reports confusion, Reports mood swings, Denies abnormal sleep pattern, Denies anxiety, Denies behavioral changes, Denies change in appetite, Denies change in sex drive, Denies depression, Denies difficulty concentrating, Denies hearing things others do not hear, Denies hopelessness, Denies irritability, Denies lack of enjoyment, Denies memory loss, Denies panic attacks , Denies paranoia, Denies seeing things others do not see, Denies sensing things others do not sense, Denies tactile hallucinations, Denies thoughts of hurting/killing others, Denies thoughts of hurting/killing yourself, Denies other (Paranoia, disinhibited behavior, pressured speech) [facility] - History History Provided By: Patient, Law Enforcement - Medical History Medical History: Medical History (Last Updated 02/04/18 @ 11:17 by Luz Porras RN) Surgical history unknown (Acute) Bipolar disorder (Acute) Schizophrenia, catatonic type (Acute) - Surgical History Surgical History: Surgical History (Last Updated 02/04/18 @ 11:22 by Luz Porras RN) No history of previous surgery - Family History Family History: Family History (Last Reviewed 01/10/18 @ 12:06 by John Trivedi) Other Bipolar disorder Schizophrenia - Tobacco History Second Hand Smoke Exposure: No Tobacco Use In Past 30 Days: No Smoking Status: Never smoker - Alcohol History How Often Do You Have a Drink Containing Alcohol: Never - Substance Use History Substance History: No History of Abuse - Immunization History Tetanus Immunization: Unsure Hx Influenza Vaccine This Season: Unable to Assess Medications and Allergies Active Medications: Active Medications Al Hydrox/Mg Hydrox/Simethicone (Mag-Al Plus Susp Liq) 30 ml PO Q6H PRN PRN Reason: DYSPEPSIA Al Hydroxide/Mg Hydroxide (Milk Of Magnesia Liq) 30 ml PO Q12H PRN PRN Reason: Mild Constipation Bisacodyl (Dulcolax Supp) 10 mg RECTAL DAILY PRN PRN Reason: SEVERE CONSITIPATION Lactulose (Lactulose Liq) 30 ml PO DAILY PRN PRN Reason: SEVERE CONSITIPATION Lorazepam (Ativan) 1 mg PO Q6H PRN PRN Reason: MODERATE TO SEVERE ANXIETY Senna/Docusate Sodium (Ele-Colace) 1 tab PO BID ELSY Sennosides (Senokot) 17.2 mg PO Q12H PRN PRN Reason: Moderate Constipation Allergies Allergy/AdvReac Type Severity Reaction Status Date / Time No Known Allergies Allergy Uncoded 10/17/16 20:31 Home Medications Medication Instructions Recorded Confirmed Type alprazolam [Xanax] 0.5 mg PO Q6H PRN 02/04/18 02/04/18 History eszopiclone [Lunesta] 3 mg PO HS 02/04/18 02/04/18 History metoprolol tartrate [Lopressor] 50 mg PO BID 02/04/18 02/04/18 History multivitamin 1 tab PO DAILY 02/04/18 02/04/18 History olanzapine 10 mg PO TID 02/04/18 02/04/18 History Results - Labs CBC & Chem 7: 02/04/18 13:25 02/04/18 13:25 Labs: Laboratory Results - last 24 hr 02/04/18 02/04/18 02/04/18 13:25 13:25 13:25 WBC 8.2 RBC 4.11 Hgb 12.9 Hct 38.7 MCV 94.3 MCH 31.5 MCHC 33.4 RDW 13.4 Plt Count 310 MPV 8.2 Neut % (Auto) 69.3 Lymph % (Auto) 21.8 Miller % (Auto) 6.6 Eos % (Auto) 1.6 Baso % (Auto) 0.7 Neut # (Auto) 5.7 Lymph # (Auto) 1.8 Miller # (Auto) 0.5 Eos # (Auto) 0.1 Baso # (Auto) 0.1 WBC Differential . Differential Comment Auto diff final Sodium 139 Potassium 4.0 Chloride 104 Carbon Dioxide 25.6 Anion Gap 9 BUN 9 Creatinine 0.63 Estimated GFR Greater than 89 Random Glucose 90 Calcium 8.8 Serum Alcohol Less than 3 Exam Vital signs: Vital Signs 02/04/18 11:13 Temperature 97.6 F Pulse Rate 110 H Respiratory Rate 16 Blood Pressure 132/72 Pulse Oximetry 98 Intake & Output 02/03/18 02/04/18 02/04/18 18:59 06:59 18:59 Weight 145 kg Narrative: Patient is sedated Mental Status Examination Appearance: Disheveled Consciousness: Somnolent Mood: Other Suicidal Ideation: No Suicidal Plan: No Suicidal Intention: No Homicidal Ideation: No Homicidal Plan: No Homicidal Intention: No Insight: Poor Judgment: Poor Mental Status Exam Remarks: Mental status is limited at this moment due to the level of sedation. Assessment and Plan - Plan Plan: Estimated LOS: [] days On my psychiatric evaluation today the patient is sedated, unable to cooperate with a psychiatric evaluation. However, she has been reported to be disinhibited, agitated, very disorganized, sexually inappropriate, with pressure speech. In the ER she was so disruptive that had to be medicated with Geodon 10 mg IM and Ativan 2 mg IM in order to calm her down. There is a patient that was discharged yesterday from the psychiatric unit after a lengthy hospitalization of about a month due to manic symptoms where she showed a very poor response to psychotropics. Patient would be admitted in psychiatry for stabilization and safety. I will restart her on olanzapine 10 mg 3 times daily , Xanax 0.5 mg 3 times daily. Justification for Continued Inpatient Stay: Patient is acutely psychotic.
[2018-02-04] MEDS: OLANZapine 10 MG Tablet PO SCH (20:32)
[2018-02-04] MEDS: Metoprolol Tartrate 50 MG Tablet PO SCH (20:32)
[2018-02-04] MEDS: Senna/Docusate Sodium 8.6/50 MG Tablet PO SCH (20:32)
[2018-02-05] MEDS: LORazepam 1 MG Tablet PO PRN (07:20)
[2018-02-05] MEDS: OLANZapine 10 MG Tablet PO SCH ×3 (10:00→21:01)
[2018-02-05] MEDS: Metoprolol Tartrate 50 MG Tablet PO SCH ×2 (10:00→21:01)
[2018-02-05] MEDS: Senna/Docusate Sodium 8.6/50 MG Tablet PO SCH (10:00)
[2018-02-05 13:27] LABS: Anion Gap 11 meq/L (5-15); Blood Urea Nitrogen 9 mg/dL (7-18); Calcium 9.1 mg/dL (8.5-10.1); Carbon Dioxide 22.5 meq/L (21.0-32.0); Chloride 105 meq/L (98-107); Glomerular Filtration Rate Greater Than 89 mL/min (>89); Glucose,Random 84 mg/dL (74-106); Potassium 3.7 meq/L (3.5-5.1); Sodium 138 meq/L (136-145)
[2018-02-05 13:28] LABS: Cholesterol 112 mg/dL (120-200)
[2018-02-05 13:31] LABS: Chol/HDL Ratio 2.35 Ratio; HDL Cholesterol 47.5 mg/dL (40.0-60.0); LDL Cholesterol,Calculated 55 mg/dL (0-99); Triglycerides 49 mg/dL (42-150)
--- NOTE | 2018-02-05 13:44 | P.CONPSY ---
Provisional Diagnosis Admission Date: February 04, 2018 12:32 [place] I.: 1. Schizoaffective disorder, bipolar type [place] II.: Deferred History of Present Illness Service: Psychiatry Consult date: 02/05/18 Requesting Physician: Damian Marie Reason for Consult: Second opinion for involuntary psychiatric hospitalization Primary Care Provider: No Primary Care Physician Family Provider: UNKNOWN History of Present Illness: Ms. Singer is a 22-year-old female with a history of bipolar disorder versus schizoaffective disorder who returned to the ED under a [place]re Act by [facility] shortly after discharge from the inpatient unit into family's care. Dr. Marie saw patient for H&P, and I did discuss the case with Dr. Marie. EMR reviewed. Patient seen and examined with nurse. Chart reviewed. Case discussed with nursing staff. Per nursing staff, patient was hyperkinetic and manicky this morning. She has received Ativan and subsequently has calmed. On my evaluation , patient is dozing in her room. She awakens fairly readily. Thought process is tangential, at times disorganized. She endorses vague SI but has no HI. No reported urge to hurt self on inpatient unit. Denies AVH but appears internally stimulated. No angelique delusional material. No depressive symptoms. Suspect some racing thoughts and loosening of associations. No evident side effects from medications besides perhaps mild sedation. No physical complaints. I am unable to obtain meaningful past psychiatric, family, chemical dependency or social history from the patient on account of her degree of psychiatric impairment at present. Spoke with patient's brother Ravi Singer, , who served as HCS last time. He is willing to act as HCS again. Given the refractory nature of patient's mental illness, we discuss trial of clozapine. I review the R/B/A for this medication including the usual metabolic and movement-related side effects. We also discuss the clozapine-specific side effects including but not limited to agranulocytosis, lowering of the seizure threshold and sialorrhea. We discuss the need for CBC monitoring with this agent. Ravi also provides consent for other psychotropics. Review of Systems unobtainable due to mental condition PMFSH - History History Provided By: Patient, Law Enforcement - Medical History Medical History: Medical History (Last Updated 02/04/18 @ 11:17 by Luz Porras RN) Surgical history unknown (Acute) Bipolar disorder (Acute) Schizophrenia, catatonic type (Acute) - Surgical History Surgical History: Surgical History (Last Updated 02/04/18 @ 11:22 by Luz Porras RN) No history of previous surgery - Family History Family History: Family History (Last Reviewed 01/10/18 @ 12:06 by John Trivedi) Other Bipolar disorder Schizophrenia - Tobacco History Second Hand Smoke Exposure: No Tobacco Use In Past 30 Days: No Smoking Status: Never smoker - Alcohol History How Often Do You Have a Drink Containing Alcohol: Never - Substance Use History Substance History: No History of Abuse - Immunization History Tetanus Immunization: Unsure Hx Influenza Vaccine This Season: Unable to Assess Medications and Allergies Active Medications: Active Medications Al Hydrox/Mg Hydrox/Simethicone (Mag-Al Plus Susp Liq) 30 ml PO Q6H PRN PRN Reason: DYSPEPSIA Al Hydroxide/Mg Hydroxide (Milk Of Magnesia Liq) 30 ml PO Q12H PRN PRN Reason: Mild Constipation Alprazolam (Xanax) 0.5 mg PO Q6H PRN PRN Reason: AGITATION Last Admin: 02/04/18 20:32 Dose: 0.5 mg Bisacodyl (Dulcolax Supp) 10 mg RECTAL DAILY PRN PRN Reason: SEVERE CONSITIPATION Lactulose (Lactulose Liq) 30 ml PO DAILY PRN PRN Reason: SEVERE CONSITIPATION Lorazepam (Ativan) 1 mg PO Q6H PRN PRN Reason: MODERATE TO SEVERE ANXIETY Last Admin: 02/05/18 07:20 Dose: 1 mg Metoprolol Tartrate (Lopressor) 50 mg PO BID [facility] Last Admin: 02/05/18 10:00 Dose: 50 mg Olanzapine (Zyprexa) 10 mg PO TID [facility] Last Admin: 02/05/18 10:00 Dose: 10 mg Senna/Docusate Sodium (Ele-Colace) 1 tab PO BID [facility] Last Admin: 02/05/18 10:00 Dose: 1 tab Sennosides (Senokot) 17.2 mg PO Q12H PRN PRN Reason: Moderate Constipation Allergies Allergy/AdvReac Type Severity Reaction Status Date / Time No Known Allergies Allergy Uncoded 10/17/16 20:31 Home Medications Medication Instructions Recorded Confirmed Type alprazolam [Xanax] 0.5 mg PO Q6H PRN 02/04/18 02/04/18 History eszopiclone [Lunesta] 3 mg PO HS 02/04/18 02/04/18 History metoprolol tartrate [Lopressor] 50 mg PO BID 02/04/18 02/04/18 History multivitamin 1 tab PO DAILY 02/04/18 02/04/18 History olanzapine 10 mg PO TID 02/04/18 02/04/18 History Exam Vital signs: Vital Signs 02/04/18 18:27 Temperature 97.9 F Pulse Rate 136 H Respiratory Rate 16 Blood Pressure 118/69 Pulse Oximetry 93 L Intake & Output 02/04/18 02/05/18 02/05/18 18:59 06:59 18:59 Intake Total 340 / 340 Balance 340 / 340 Weight 145 kg Intake: Oral 240 / 240 Oral Supplement 100 / 100 Other: # Voids 2 # Bowel Movements 0 Narrative: Physical examination was completed by the ED provider. On my examination today , the patient appears to be in no acute physical distress. No motoric abnormalities noted. Labs and vitals reviewed: Laboratory Tests 02/04/18 02/04/18 02/05/18 13:25 13:25 11:05 WBC 8.2 Hgb 12.9 Plt Count 310 Neut # (Auto) 5.7 Sodium 138 Potassium 3.7 Chloride 105 Carbon Dioxide 22.5 Anion Gap 11 BUN 9 Creatinine 0.47 L Estimated GFR Greater than 89 Random Glucose 84 Calcium 9.1 Total Bilirubin Direct Bilirubin Indirect Bilirubin AST ALT Alkaline Phosphatase Total Creatine Kinase Total Protein Albumin Triglycerides 49 Cholesterol 112 L LDL Cholesterol, Calc 55 HDL Cholesterol 47.5 Cholesterol/HDL Ratio 2.35 Beta HCG, Qual Serum Alcohol Less than 3 02/05/18 02/05/18 11:05 11:05 WBC Hgb Plt Count Neut # (Auto) Sodium Potassium Chloride Carbon Dioxide Anion Gap BUN Creatinine Estimated GFR Random Glucose Calcium Total Bilirubin 0.4 Direct Bilirubin 0.1 Indirect Bilirubin 0.3 AST 25 ALT 39 Alkaline Phosphatase 79 Total Creatine Kinase 391 H Total Protein 7.0 Albumin 3.9 Triglycerides Cholesterol LDL Cholesterol, Calc HDL Cholesterol Cholesterol/HDL Ratio Beta HCG, Qual Less than 1.0 Serum Alcohol Besides mildly elevated CK, likely due to recent agitation, labs are largely unremarkable. ANC is adequate for clozapine therapy. Mental Status Examination Appearance: Disheveled Consciousness: Somnolent (But arousable) Orientation: Person Motor Activity: Other (No motor abnormalities noted) Speech: Rapid Language: Other (Rambling) Fund of Knowledge: Inadequate Attention and Concentration: Easily distracted Memory: Impaired (Psychosis interferes) Mood: Manic Affect: Labile Thought Process & Associations: Tangential (At times disorganized) Thought Content: Hallucinations Hallucination Type: Other (Appears somewhat internally stimulated) Delusion Type: Bizarre Suicidal Ideation: Yes Suicidal Plan: No Suicidal Intention: No Homicidal Ideation: No Homicidal Plan: No Homicidal Intention: No Insight: Poor Judgment: Poor Assessment and Plan - Assessment (1) Schizoaffective disorder, bipolar type Code(s): F25.0 - Schizoaffective disorder, bipolar type Status: Acute - Plan Plan: Given the circumstances of the patient's presentation here, and her presentation on my examination today, I concur with Dr. Marie that the patient meets criteria for involuntary psychiatric hospitalization under the [place] act. I have completed the second opinion paperwork. I have additionally requested healthcare surrogate and guardian advocate as I do not believe that the patient is capacitated to consent for medications in her present state. Add clozapine 12.5mg BID to existing Zyprexa regimen for psychosis. Plan to titrate clozapine to effect. We could consider cross-taper from Zyprexa to clozapine, but I will leave the Zyprexa dose unchanged today as patient remains quite symptomatic. Weekly CBCs. I have enrolled patient in clozapine REMS. Ativan p.o./IM as needed for anxiety. D/c Xanax as I did not see much benefit from this medication over Ativan p.o.. Cogentin as needed for EPS. Resume Lunesta for sleep, but monitor for excessive sedation, especially as clozapine dose is titrated. Continue to monitor on the medical psychiatric unit as I believe she is too agitated to place on the lower acuity unit and also too vulnerable to place on the high acuity unit. Consider 1:1 for behavioral redirection if needed. Trend CK and BMP and encourage oral fluids. Continue other medications and care as ordered. Justification for Continued Inpatient Stay: Medication changes. Impairment in reality construction. High risk for decompensation in less restrictive environment. Discharge Planning: Pending psychiatric stabilization. Request Healthcare Surrogate/Guardian Advocate?: Yes
[2018-02-05 14:00] LABS: Albumin 3.9 g/dL (3.4-5.0)
[2018-02-05] MEDS ORDERED: Benztropine Inj 2 MG/2 ML Ampul IM PRN (14:15)
[2018-02-05 17:02] LABS: CKMB Percent 1.2 % (0.0-4.0); Creatine Kinase MB 4.6 ng/mL (0.5-3.6)
[2018-02-05 17:20] LABS: Hemoglobin A1c 4.8 % (4.3-6.0)
[2018-02-06] MEDS: OLANZapine 10 MG Tablet PO SCH ×3 (08:35→20:42)
[2018-02-06] MEDS: LORazepam 1 MG Tablet PO PRN ×2 (08:35→14:56)
[2018-02-06] MEDS: Metoprolol Tartrate 50 MG Tablet PO SCH ×2 (08:35→20:42)
[2018-02-06 09:08] LABS: Anion Gap 10 meq/L (5-15); Blood Urea Nitrogen 8 mg/dL (7-18); Calcium 9.1 mg/dL (8.5-10.1); Carbon Dioxide 23.2 meq/L (21.0-32.0); Chloride 107 meq/L (98-107); Glomerular Filtration Rate Greater Than 89 mL/min (>89); Glucose,Random 112 mg/dL (74-106); Potassium 3.8 meq/L (3.5-5.1); Sodium 140 meq/L (136-145)
[2018-02-06 09:11] LABS: Creatine Kinase 196 U/L (26-192)
[2018-02-06 09:31] LABS: CKMB Percent 1.8 % (0.0-4.0); Creatine Kinase MB 3.6 ng/mL (0.5-3.6)
--- NOTE | 2018-02-06 18:36 | P.PNPSY ---
Subjective Remarks: Patient seen for follow-up, chart reviewed. Discussion with nursing staff reported that the patient continues to require one-to-one observation for safety continues to ambulate on the unit. Patient was found in the hallway ambulating noted to be able to tolerate engaging interview today. Patient states that she had difficulty sleeping last evening, her mood has been "happy" was unable to endorse with the patient was having auditory hallucinations recently denying any perceptional symptoms of visual hallucinations. Patient reports having adequate appetite, no difficulty or bowel movement. Patient appears calmer compared to her prior presentations with improve eye contact and more appropriate responses to interview. Review of Systems All other systems reviewed negative except as stated in HPI Mental Status Examination Appearance: Disheveled Consciousness: Alert Orientation: Person Motor Activity: Other (No motor abnormalities noted) Speech: Rapid (Decreasing) Language: Other (less Rambling ) Fund of Knowledge: Inadequate Attention and Concentration: Easily distracted Memory: Impaired (Psychosis interferes) Mood: Manic (Lessening) Affect: Labile Thought Process & Associations: Tangential (At times disorganized) Thought Content: Hallucinations Hallucination Type: Other (Appears somewhat internally stimulated) Delusion Type: Bizarre Suicidal Ideation: Yes Suicidal Plan: No Suicidal Intention: No Homicidal Ideation: No Homicidal Plan: No Homicidal Intention: No Insight: Poor Judgment: Poor Assessment and Plan - Assessment (1) Schizoaffective disorder, bipolar type Code(s): F25.0 - Schizoaffective disorder, bipolar type Status: Acute - Plan Plan: Patient appears to be tolerating initiation of clozapine, noted to be more calm and appropriate during interview continues require more stabilization. We will continue to titrate clozapine to 25 mg p.o. twice daily current, continue rest of medications. Continue one-to-one observation for safety. Continue to monitor mood and behavior. Discharge planning in progress. Justification for Continued Inpatient Stay: At risk for further decompensation if at lower level of care. Request Healthcare Surrogate/Guardian Advocate?: Yes
[2018-02-07] MEDS: OLANZapine 10 MG Tablet PO SCH ×3 (10:30→22:02)
[2018-02-07] MEDS: LORazepam 1 MG Tablet PO PRN (10:30)
[2018-02-07] MEDS: Metoprolol Tartrate 50 MG Tablet PO SCH ×2 (10:30→22:03)
--- NOTE | 2018-02-07 15:42 | P.PNPSY ---
Subjective Remarks: Reviewed electronic medical record, labs, and discussed case with staff. Liliya RN reports that patient was hypertensive, tachycardic, and pale this morning after taking her clozaril. She also c/o chest pain once again. Rechecked patient's vital signs which were within normal limits, although she was still slightly tachycardic at 112 bpm. Her BP was 121/66. I have ordered an EKG. Follow-up was conducted in her room, patient remains manic. Her mood is good and her affect is expansive. I can detect no rigidity in her extremities. Mental Status Examination Appearance: Disheveled Consciousness: Alert Orientation: Person Motor Activity: Other (No motor abnormalities noted) Speech: Rapid (Decreasing) Language: Other (less Rambling ) Fund of Knowledge: Inadequate Attention and Concentration: Easily distracted Memory: Impaired (Psychosis interferes) Mood: Manic (Lessening) Affect: Labile Thought Process & Associations: Tangential (At times disorganized) Thought Content: Hallucinations Hallucination Type: Other (Appears somewhat internally stimulated) Delusion Type: Bizarre Suicidal Ideation: Yes Suicidal Plan: No Suicidal Intention: No Homicidal Ideation: No Homicidal Plan: No Homicidal Intention: No Insight: Poor Judgment: Poor Assessment and Plan - Assessment (1) Schizoaffective disorder, bipolar type Code(s): F25.0 - Schizoaffective disorder, bipolar type Status: Acute - Plan Plan: Continue with current treatment plan. Will follow up with the EKG in the am and round on the patient first thing to see if she is again hypertensive and tachycardic. Justification for Continued Inpatient Stay: Moving this patient to a less restrictive environment would likely result in decompensation. Request Healthcare Surrogate/Guardian Advocate?: Yes
[2018-02-07 18:59] LABS: CKMB Percent 1.6 % (0.0-4.0)
[2018-02-08] MEDS: Metoprolol Tartrate 50 MG Tablet PO SCH ×2 (11:30→21:02)
[2018-02-08] MEDS: OLANZapine 10 MG Tablet PO SCH ×3 (11:30→21:02)
--- NOTE | 2018-02-08 13:29 | P.PNPSY ---
Subjective Remarks: Reviewed electronic medical records and discussed case with staff. Patient's EKG was sinus tachycardia with a QT interval of 321. She does not appear to require any further cardiac workup at this time. Follow-up was conducted in patient's room. Her nurse reports that she slept well from approximately 1 AM until little after 11 AM. She states that she slept well, feels "groovy" and that she is eating okay. She reports "I pick and eat". Her mood is good her affect is expansive. She remains manic at times disorganized. Mental Status Examination Appearance: Disheveled Consciousness: Alert Orientation: Person Motor Activity: Other (No motor abnormalities noted) Speech: Rapid (Decreasing) Language: Other (less Rambling ) Fund of Knowledge: Inadequate Attention and Concentration: Easily distracted Memory: Impaired (Psychosis interferes) Mood: Manic (Lessening) Affect: Labile Thought Process & Associations: Tangential (At times disorganized) Thought Content: Hallucinations Hallucination Type: Other (Appears somewhat internally stimulated) Delusion Type: Bizarre Suicidal Ideation: Yes Suicidal Plan: No Suicidal Intention: No Homicidal Ideation: No Homicidal Plan: No Homicidal Intention: No Insight: Poor Judgment: Poor Assessment and Plan - Assessment (1) Schizoaffective disorder, bipolar type Code(s): F25.0 - Schizoaffective disorder, bipolar type Status: Acute - Plan Plan: Patient will be reevaluated Saturday by the attending psychiatrist. Continue with current treatment plan. Justification for Continued Inpatient Stay: Moving this patient to a less restrictive environment would likely result in decompensation. Request Healthcare Surrogate/Guardian Advocate?: Yes
--- NOTE | 2018-02-08 14:08 | ECG ---
Date Performed: 02/07/2018 Time Performed: 17:41:31 PTAGE: 22 years EKG: SINUS TACHYCARDIA WITH SHORT PA INTERVAL POSSIBLE LEFT ATRIAL ENLARGEMENT ABNORMAL RHYTHM E CG Since the PREVIOUS TRACING , no significant change noted PREVIOUS TRACIN01/07/2018 18.31 DOCTOR: Toshia Mistry Interpretating Date/Time 02/08/2018 14:07:44
[2018-02-08] MEDS: LORazepam 1 MG Tablet PO PRN (21:06)
[2018-02-09] MEDS: OLANZapine 10 MG Tablet PO SCH ×3 (09:00→21:09)
[2018-02-09] MEDS: Metoprolol Tartrate 50 MG Tablet PO SCH ×2 (09:00→21:09)
--- NOTE | 2018-02-09 20:02 | P.PNPSY ---
Subjective Remarks: Reviewed electronic medical records and discussed case with staff. Follow-up was conducted in the hallway. Patient continues to show improvement today. She has been given Cogentin as her nurse questioned whether she was having akathisia and unable to express herself adequately. Patient seems to have improved considerably but, I am unable to determine at this time if it is due to the Clozaril or the Cogentin but, I think it is important to note she showed the most improvement after the Cogentin was administered. Patient speaking in complete sentences today. Her speech is clear, logical, and organized on several occasions. Her mood is much calmer and she is not nearly as hyperkinetic as she has been previously. She reports that she feels better. Mental Status Examination Appearance: Disheveled Consciousness: Alert Orientation: Person Motor Activity: Other (No motor abnormalities noted) Speech: Rapid (Decreasing) Language: Other (less Rambling ) Fund of Knowledge: Inadequate Attention and Concentration: Easily distracted Memory: Impaired (Psychosis interferes) Mood: Manic (Lessening) Affect: Labile Thought Process & Associations: Tangential (At times disorganized) Thought Content: Hallucinations Hallucination Type: Other (Appears somewhat internally stimulated) Delusion Type: Bizarre Suicidal Ideation: Yes Suicidal Plan: No Suicidal Intention: No Homicidal Ideation: No Homicidal Plan: No Homicidal Intention: No Insight: Poor Judgment: Poor Assessment and Plan - Assessment (1) Schizoaffective disorder, bipolar type Code(s): F25.0 - Schizoaffective disorder, bipolar type Status: Acute - Plan Plan: Patient will be reevaluated tomorrow by the attending psychiatrist. Continue with current treatment plan. Patient is starting to show some improvement. Justification for Continued Inpatient Stay: Moving this patient to a less restrictive environment would likely result in decompensation. Request Healthcare Surrogate/Guardian Advocate?: Yes
[2018-02-10] MEDS: OLANZapine 10 MG Tablet PO SCH ×2 (09:52→15:35)
[2018-02-10] MEDS: Metoprolol Tartrate 50 MG Tablet PO SCH ×2 (09:53→21:43)
[2018-02-10 10:27] LABS: Baso % (Auto) 0.6 % (0.0-2.0); Eos # (Auto) 0.4 th/mm3 (0.0-0.4); Eos % (Auto) 5.9 % (0.0-4.0); Hematocrit 39.5 % (35.0-46.0); Hemoglobin 13.1 gm/dL (11.6-15.3); Lymph # (Auto) 1.9 th/mm3 (1.0-4.8); Mean Corpuscular HGB Conc 33.3 % (32.0-36.0); Mean Corpuscular Hemoglobin 31.5 pg (27.0-34.0); Mean Corpuscular Volume 94.9 fL (80.0-100.0); Mean Platelet Volume 7.5 fL (7.0-11.0); Mono # (Auto) 0.5 th/mm3 (0.0-0.9); Mono % (Auto) 8.1 % (0.0-8.0); Neut # (Auto) 3.4 th/mm3 (1.8-7.7); Neut % (Auto) 55.4 % (16.0-70.0); Platelet Count 247 th/mm3 (150-450); Red Blood Count 4.17 mil/mm3 (4.00-5.30); Red Cell Distribution Width 13.4 % (11.6-17.2); White Blood Count 6.2 th/mm3 (4.0-11.0)
--- NOTE | 2018-02-10 16:34 | P.PNPSY ---
Subjective Remarks: Patient seen and examined with nurse. Chart reviewed. Case discussed with nursing staff who reports that the patient has been doing very well today. On my examination today, the patient is sitting calmly in her room with her sitter. She is speaking in complete sentences. She says "what happened to me? I felt from the [place]." She provides irrelevant answers to some of my questions. For example, when I ask if she is experiencing audiovisual hallucinations she replies "different languages." When I ask if she is hearing different languages she tells me "I tell myself, be strong." She denies any SI or HI. She denies any side effects from medications. No acute physical complaints. Vital Signs Temp Pulse Resp BP Pulse Ox 02/10/18 06:00 97.0 F L 96 H 16 115/58 L 98 02/09/18 18:00 98.5 F 101 H 18 128/75 100 Intake and Output 02/10/18 02/10/18 02/10/18 06:59 14:59 22:59 Intake Total 240 / 240 960 / 960 Balance 240 / 240 960 / 960 Intake: Oral 240 / 240 960 / 960 Other: # Voids 1 Weight 74.4 kg Laboratory Results - last 24 hr 02/10/18 10:11 WBC 6.2 RBC 4.17 Hgb 13.1 Hct 39.5 MCV 94.9 MCH 31.5 MCHC 33.3 RDW 13.4 Plt Count 247 MPV 7.5 Neut % (Auto) 55.4 Lymph % (Auto) 30.0 Canadian % (Auto) 8.1 H Eos % (Auto) 5.9 H Baso % (Auto) 0.6 Neut # (Auto) 3.4 Lymph # (Auto) 1.9 Canadian # (Auto) 0.5 Eos # (Auto) 0.4 Baso # (Auto) 0.0 WBC Differential . Differential Comment Auto diff final ANC remains adequate for clozapine therapy. Labs reviewed. EKG reviewed. Review of Systems unobtainable due to mental condition Mental Status Examination Appearance: Appropriate Consciousness: Alert Orientation: Person Motor Activity: Other (No abnormal motor movements noted. In particular no hand tremor, no cogwheeling, no dystonia, no dyskinesia.) Speech: Unremarkable Language: Other (Rambling) Fund of Knowledge: Inadequate Attention and Concentration: Easily distracted Memory: Impaired (Psychosis interferes) Mood: Other (Calm) Affect: Appropriate Thought Process & Associations: Tangential (Remains somewhat disorganized at times) Thought Content: Bizarre thinking, Hallucinations Hallucination Type: Other (Remains internally stimulated) Delusion Type: None Suicidal Ideation: No Suicidal Plan: No Suicidal Intention: No Homicidal Ideation: No Homicidal Plan: No Homicidal Intention: No Insight: Poor Judgment: Poor Assessment and Plan - Assessment (1) Schizoaffective disorder, bipolar type Code(s): F25.0 - Schizoaffective disorder, bipolar type Status: Acute - Plan Plan: Patient seems improved with addition of clozapine. I do not suspect significant contribution from EPS or akathisia and I suspect apparent improvement following Cogentin administration may be coincidental. Titrate clozapine to 50mg BID (i.e. 75mg total daily dose today and 100mg TDD tomorrow) . Continue weekly CBCs. Check CK. Taper Zyprexa to 7.5mg TID. Continue sitter for behavioral redirection. Continue to monitor on the medical psychiatric unit. Continue other medications and care as ordered. Justification for Continued Inpatient Stay: Medication changes. Impairment in reality construction. High risk for decompensation in less restrictive environment. Discharge Planning: Pending psychiatric stabilization. Request Healthcare Surrogate/Guardian Advocate?: Yes
[2018-02-10] MEDS ORDERED: OLANZapine 2.5 MG Tablet PO SCH (17:56)
[2018-02-10] MEDS: LORazepam 1 MG Tablet PO PRN (18:10)
[2018-02-10] MEDS: OLANZapine 2.5 MG Tablet PO SCH (21:42)
--- NOTE | 2018-02-11 08:04 | P.PNPSY ---
Subjective Remarks: Patient seen and examined with nurse. Chart reviewed. Case discussed with nursing staff. Case discussed in treatment team. On my examination today, mild affect of lability. Thought process remains tangential. Some thought blocking noted. Overall course seems to be improving however. No side effects from medications. No physical complaints. Vital Signs Temp Pulse Resp BP Pulse Ox 02/11/18 08:30 127 H 160/86 H 02/11/18 06:00 97.5 F L 89 16 102/56 L 97 02/10/18 18:17 97.2 F L 91 H 19 101/57 L 97 Elevated BP possibly spurious secondary to transient agitation per RN. RN to recheck. Intake and Output 02/10/18 02/11/18 02/11/18 22:59 06:59 14:59 Intake Total 2139 / 2139 Balance 2139 / 2139 Intake: Oral 2039 Oral Supplement 100 / 100 Other: # Voids 3 Laboratory Results - last 24 hr 02/11/18 01:42 Total Creatine Kinase 86 Labs reviewed. CK has normalized. Review of Systems unobtainable due to mental condition Mental Status Examination Appearance: Appropriate Consciousness: Alert Orientation: Person Motor Activity: Other (Mildly hyperkinetic. No other motor abnormalities noted. ) Speech: Unremarkable Language: Other (Rambling) Fund of Knowledge: Inadequate Attention and Concentration: Easily distracted Memory: Impaired (Psychosis interferes) Mood: Appropriate Affect: Labile (Mild) Thought Process & Associations: Tangential Thought Content: Bizarre thinking, Thought blocking Hallucination Type: None Delusion Type: None Suicidal Ideation: No Suicidal Plan: No Suicidal Intention: No Homicidal Ideation: No Homicidal Plan: No Homicidal Intention: No Insight: Poor Judgment: Poor Assessment and Plan - Assessment (1) Schizoaffective disorder, bipolar type Code(s): F25.0 - Schizoaffective disorder, bipolar type Status: Acute - Plan Plan: Patient does appear to be improving with clozapine. Continue clozapine titration; will plan to titrate HS dose tomorrow. Continue to monitor on medical psychiatric unit with one-to-one for behavioral redirection. Continue other medications and care as ordered. Justification for Continued Inpatient Stay: Medication changes planned. Impairment in reality construction. High risk for decompensation in less restrictive environment. Discharge Planning: Pending psychiatric stabilization Request Healthcare Surrogate/Guardian Advocate?: Yes
[2018-02-11] MEDS: OLANZapine 2.5 MG Tablet PO SCH ×3 (08:40→20:03)
[2018-02-11] MEDS: LORazepam 1 MG Tablet PO PRN (08:40)
[2018-02-11] MEDS: Metoprolol Tartrate 50 MG Tablet PO SCH ×2 (08:40→20:02)
[2018-02-11] MEDS ORDERED: Benzonatate 100 MG Capsule PO PRN (13:31)
[2018-02-11] MEDS ORDERED: Benzocaine 20% Oral Spray 60 ML Can OROPHARYNG PRN (13:31)
[2018-02-12] MEDS: OLANZapine 2.5 MG Tablet PO SCH ×3 (08:33→20:34)
[2018-02-12] MEDS: LORazepam 1 MG Tablet PO PRN ×2 (08:33→20:34)
[2018-02-12] MEDS: Metoprolol Tartrate 50 MG Tablet PO SCH ×2 (08:34→20:34)
--- NOTE | 2018-02-12 10:29 | P.PNPSY ---
Subjective Remarks: Patient seen and examined with one-to-one sitter during fresh air break. Chart reviewed. Case discussed with nursing staff who reports patient has been hyperkinetic and racing around the unit today. She received Ativan IM. On my examination today, patient remains in her hyperkinetic mode. Thought process is disorganized. Speech is rambling. No evident side effects from medications. No physical complaints. Vital Signs Temp Pulse Resp BP Pulse Ox 02/12/18 06:00 98.9 F 86 16 116/58 L 94 L 02/11/18 17:57 98.3 F 112 H 15 119/65 95 Intake and Output 02/11/18 02/12/18 02/12/18 22:59 06:59 14:59 Intake Total 1720 / 1720 Balance 1720 / 1720 Intake: Oral 1620 / 1620 Oral Supplement 100 / 100 Other: # Voids 2 2 Labs reviewed. No new labs. Review of Systems unobtainable due to mental condition Mental Status Examination Appearance: Appropriate Consciousness: Alert Orientation: Person Motor Activity: Other (Hyperkinetic. No other motoric abnormalities noted) Speech: Incoherent Language: Other (Rambling) Fund of Knowledge: Inadequate Attention and Concentration: Easily distracted Memory: Impaired (Psychosis interferes) Mood: Anxious Affect: Labile (Mild) Thought Process & Associations: Disorganized Thought Content: Bizarre thinking, Thought blocking Hallucination Type: Other (Internally stimulated) Delusion Type: None Suicidal Ideation: No Homicidal Ideation: No Insight: Poor Judgment: Poor Assessment and Plan - Assessment (1) Schizoaffective disorder, bipolar type Code(s): F25.0 - Schizoaffective disorder, bipolar type Status: Acute - Plan Plan: A step backward today after several days of apparent progress. I am hopeful that this represents only a momentary reversal. Titrate clozapine to 50mg qAM and 75mg qHS. I will hold off on further tapering Zyprexa as patient is more symptomatic today. Continue to monitor on the medical psychiatric unit. Continue other medications and care as ordered. Justification for Continued Inpatient Stay: Medication changes. Impairment in reality construction. High risk for decompensation in less restrictive environment. Discharge Planning: Pending psychiatric stabilization. [place] [facility] tomorrow. Request Healthcare Surrogate/Guardian Advocate?: Yes
[2018-02-13] MEDS: OLANZapine 2.5 MG Tablet PO SCH ×2 (10:17→20:53)
[2018-02-13] MEDS: Metoprolol Tartrate 50 MG Tablet PO SCH ×2 (10:17→20:54)
--- NOTE | 2018-02-13 15:06 | P.PNPSY ---
Subjective Remarks: Patient seen and examined with nurse. Chart reviewed. Case discussed with nursing staff. Patient reported to have slept all night and was calmer this morning. On my examination today, the patient is initially fairly hyperkinetic , racing around the unit with her one-to-one sitter. However, she does respond well to verbal redirection and is actually able to sit in her room for a fairly extended interview. Although her speech remains fairly rambling, she is able to collect her thoughts and has periodic sensible utterances. For example, she is able to say that she does not like bread or soup and so did not much enjoy her lunch which consisted of a chicken sandwich, roll and soup. The nurse will obtain a lunch more to her liking from the dietary staff. Affect remains somewhat labile. No SI or HI. No side effects from medications. No physical complaints. Vital Signs Temp Pulse Resp BP Pulse Ox 02/13/18 06:00 98.6 F 94 H 16 108/51 L 02/12/18 18:10 98.1 F 110 H 20 121/60 97 Intake and Output 02/13/18 02/13/18 02/13/18 06:59 14:59 22:59 Intake Total 480 / 480 600 / 600 Output Total Balance 479 / 479 600 / 600 Intake: Oral 480 / 480 600 / 600 Output: Urine Other: Weight On Admission 75.6 kg Labs reviewed. No new labs. Review of Systems unobtainable due to mental condition Mental Status Examination Appearance: Appropriate Consciousness: Alert Orientation: Person, Place Motor Activity: Other (No motor abnormalities noted.) Speech: Rapid Language: Other (More coherent today) Fund of Knowledge: Inadequate Attention and Concentration: Easily distracted Memory: Impaired (Psychosis interferes) Mood: Anxious Affect: Labile (Mild) Thought Process & Associations: Tangential (Periods of improved organization today) Thought Content: Bizarre thinking, Thought blocking Hallucination Type: Other (Remains internally stimulated) Delusion Type: None Suicidal Ideation: No Suicidal Plan: No Suicidal Intention: No Homicidal Ideation: No Homicidal Plan: No Homicidal Intention: No Insight: Poor Judgment: Poor Assessment and Plan - Assessment (1) Schizoaffective disorder, bipolar type Code(s): F25.0 - Schizoaffective disorder, bipolar type Status: Acute - Plan Plan: Possibly some signs of improvement with clozapine titration. Increase nighttime dose of clozapine to 100 mg at bedtime. Plan for ongoing clozapine titration with weekly CBCs. I will once again hold off on tapering the Zyprexa as the patient remains fairly symptomatic. Patient shows no signs of sedation or impaired tolerability of this regimen. Continue to monitor on the medical psychiatric unit. Continue other medications and care as ordered. The patient' s case was presented to the [place] [facility] although the patient was not able to attend today because of her condition, and so her case was placed in 1 week continuance in hopes that the patient will be able to attend next week. Justification for Continued Inpatient Stay: Medication changes. Impairment in reality construction. High risk for decompensation in less restrictive environment. Discharge Planning: Pending psychiatric stabilization. Request Healthcare Surrogate/Guardian Advocate?: Yes
[2018-02-13] MEDS: LORazepam 1 MG Tablet PO PRN (20:54)
[2018-02-14] MEDS: LORazepam 1 MG Tablet PO PRN (03:09)
[2018-02-14] MEDS: Metoprolol Tartrate 50 MG Tablet PO SCH ×3 (09:18→22:39)
[2018-02-14] MEDS: OLANZapine 2.5 MG Tablet PO SCH ×4 (09:18→22:39)
--- NOTE | 2018-02-14 12:30 | P.PNPSY ---
Subjective Remarks: Patient seen and examined with counselor and nurse. Chart reviewed. Case discussed with nursing staff. Case discussed in treatment team. Counselor to reach out to patient's brother. On my examination today, the patient again is more organized. She is better able to make her needs and wants known. Some echophenomena noted. No SI/HI. No side effects from medications. Complains of some mild left foot pain; no signs of injury or trauma. No other physical complaints. Vital Signs Temp Pulse Resp BP Pulse Ox 02/14/18 06:49 98.5 F 122 H 20 130/79 97 02/13/18 20:00 98.8 F 122 H 18 107/65 99 Intake and Output 02/13/18 02/14/18 02/14/18 22:59 06:59 14:59 Intake Total 600 / 600 480 / 480 Balance 600 / 600 480 / 480 Intake: Oral 600 / 600 480 / 480 Other: # Voids 2 2 Labs reviewed. No new labs. Review of Systems All other systems reviewed negative except as stated in HPI, other (Limitation: Psychosis) Mental Status Examination Appearance: Appropriate Consciousness: Alert Orientation: Person, Place Motor Activity: Other (No abnormal motor movements noted) Speech: Other (Only very slightly rapid today) Language: Other (Again more coherent) Fund of Knowledge: Inadequate Attention and Concentration: Easily distracted Memory: Impaired (Psychosis interferes) Mood: Appropriate Affect: Other (Mildly expansive) Thought Process & Associations: Circumstantial Thought Content: Bizarre thinking, Thought blocking Hallucination Type: Other (Less internally stimulated) Delusion Type: None Suicidal Ideation: No Suicidal Plan: No Suicidal Intention: No Homicidal Ideation: No Homicidal Plan: No Homicidal Intention: No Insight: Poor Judgment: Poor Assessment and Plan - Assessment (1) Schizoaffective disorder, bipolar type Code(s): F25.0 - Schizoaffective disorder, bipolar type Status: Acute - Plan Plan: Trajectory of improvement continues with clozapine, albeit somewhat slowly. Titrate clozapine to 75/100mg. Weekly CBC ordered for Saturday morning. I will taper Zyprexa to 5mg TID. Continue to monitor on the inpatient unit. Continue other medications and care as ordered. Justification for Continued Inpatient Stay: Medication changes. Impairment in reality construction. High risk for decompensation in less restrictive environment. Discharge Planning: Pending psychiatric stabilization. Request Healthcare Surrogate/Guardian Advocate?: Yes
[2018-02-15] MEDS: Metoprolol Tartrate 50 MG Tablet PO SCH (08:33)
[2018-02-15] MEDS: OLANZapine 2.5 MG Tablet PO SCH ×3 (08:34→21:00)
--- NOTE | 2018-02-15 17:04 | P.PNPSY ---
Subjective Remarks: Patient was seen and case discussed with nursing. Patient remains elevated and disorganized. Thought processes disorganized and behaviors childlike. She is actively responding to internal stimulation and admits to hallucinations during the visit. Compliant with medications- Mental Status Examination Appearance: Appropriate Consciousness: Alert Orientation: Person, Place Motor Activity: Other (No abnormal motor movements noted) Speech: Other (Only very slightly rapid today) Language: Other (Again more coherent) Fund of Knowledge: Inadequate Attention and Concentration: Easily distracted Memory: Impaired (Psychosis interferes) Mood: Appropriate Affect: Other (Mildly expansive) Thought Process & Associations: Circumstantial Thought Content: Bizarre thinking, Thought blocking Hallucination Type: Other (Less internally stimulated) Delusion Type: None Suicidal Ideation: No Suicidal Plan: No Suicidal Intention: No Homicidal Ideation: No Homicidal Plan: No Homicidal Intention: No Insight: Poor Judgment: Poor Assessment and Plan - Assessment (1) Schizoaffective disorder, bipolar type Code(s): F25.0 - Schizoaffective disorder, bipolar type Status: Acute - Plan Plan: Continue current treatment plan Justification for Continued Inpatient Stay: Patient would decompensate in a less restrictive setting Request Healthcare Surrogate/Guardian Advocate?: Yes
[2018-02-16] MEDS: Metoprolol Tartrate 50 MG Tablet PO SCH ×3 (04:25→21:00)
[2018-02-16] MEDS: OLANZapine 2.5 MG Tablet PO SCH ×3 (08:37→21:00)
--- NOTE | 2018-02-16 16:19 | P.PNPSY ---
Subjective Remarks: Patient was seen and case discussed with nursing. Patient has had a slight improvement today. She has not needed any ETO's. Behavior does remained childlike but less so. She is behaving well on the unit. Asking for more food. Continues to have auditory hallucinations but they are pleasant in nature Mental Status Examination Appearance: Appropriate Consciousness: Alert Orientation: Person, Place Motor Activity: Other (No abnormal motor movements noted) Speech: Other (Only very slightly rapid today) Language: Other (Again more coherent) Fund of Knowledge: Inadequate Attention and Concentration: Easily distracted Memory: Impaired (Psychosis interferes) Mood: Appropriate Affect: Other (Mildly expansive) Thought Process & Associations: Circumstantial Thought Content: Bizarre thinking, Thought blocking Hallucination Type: Auditory (Pleasant) Delusion Type: None Suicidal Ideation: No Suicidal Plan: No Suicidal Intention: No Homicidal Ideation: No Homicidal Plan: No Homicidal Intention: No Insight: Poor Judgment: Poor Assessment and Plan - Assessment (1) Schizoaffective disorder, bipolar type Code(s): F25.0 - Schizoaffective disorder, bipolar type Status: Acute - Plan Plan: Continue current treatment plan Justification for Continued Inpatient Stay: Patient would decompensate in a less restrictive setting Request Healthcare Surrogate/Guardian Advocate?: Yes
--- NOTE | 2018-02-17 08:49 | P.PNPSY ---
Subjective Remarks: Patient seen and examined. Chart reviewed. Case discussed with nursing staff who reports the patient slept 6 hours overnight And otherwise seems to be improving. Sitter is at the bedside for redirection. On my examination today, the patient recognizes me and also recognizes the mid-level provider from the hospitalist service who was walking by. Her speech is much more coherent and relevant. She tells me that she is hearing "voices, good voices." She does have some tangentiality. No SI or HI. Denies side effects from medications. No physical complaints. Vital Signs Temp Pulse Resp BP Pulse Ox 02/16/18 18:00 98.2 F 99 H 18 112/78 98 Intake and Output 02/16/18 02/17/18 02/17/18 22:59 06:59 14:59 Intake Total 240 / 240 Balance 240 / 240 Intake: Oral 240 / 240 Labs reviewed. CBC for clozapine therapy ordered for today, pending. Review of Systems All other systems reviewed negative except as stated in HPI (Limitation: Psychosis) Mental Status Examination Appearance: Appropriate Consciousness: Alert Orientation: Person, Place Motor Activity: Other (No motoric abnormalities noted) Speech: Unremarkable Language: Other (Generally more coherent but still somewhat rambling) Fund of Knowledge: Inadequate Attention and Concentration: Easily distracted Memory: Impaired (Psychosis interferes) Mood: Appropriate Affect: Other (Mildly expansive) Thought Process & Associations: Circumstantial, Tangential (Occasionally tangential) Thought Content: Bizarre thinking, Thought blocking Hallucination Type: Auditory ("Good voices") Delusion Type: None Suicidal Ideation: No Suicidal Plan: No Suicidal Intention: No Homicidal Ideation: No Homicidal Plan: No Homicidal Intention: No Insight: Poor Judgment: Poor Assessment and Plan - Assessment (1) Schizoaffective disorder, bipolar type Code(s): F25.0 - Schizoaffective disorder, bipolar type Status: Acute - Plan Plan: Patient seems to be improving with clozapine therapy. Titrate clozapine to 75/ 125mg. Adjust Zyprexa dosing as noted before weekend. Follow-up CBC. Continue to monitor on the medical psychiatric unit. Continue one-to-one for behavioral redirection. Continue other care as ordered. Justification for Continued Inpatient Stay: Risk for decompensation in less restrictive environment. Med changes. Impairment in reality construction. Discharge Planning: Pending psychiatric stabilization. Request Healthcare Surrogate/Guardian Advocate?: Yes
[2018-02-17] MEDS: Metoprolol Tartrate 50 MG Tablet PO SCH ×2 (10:03→21:20)
[2018-02-18 08:23] LABS: Baso % (Auto) 0.5 % (0.0-2.0); Eos # (Auto) 0.3 th/mm3 (0.0-0.4); Eos % (Auto) 4.2 % (0.0-4.0); Hematocrit 40.3 % (35.0-46.0); Hemoglobin 13.4 gm/dL (11.6-15.3); Lymph # (Auto) 1.7 th/mm3 (1.0-4.8); Mean Corpuscular HGB Conc 33.3 % (32.0-36.0); Mean Corpuscular Hemoglobin 31.6 pg (27.0-34.0); Mean Corpuscular Volume 94.8 fL (80.0-100.0); Mean Platelet Volume 7.9 fL (7.0-11.0); Mono # (Auto) 0.5 th/mm3 (0.0-0.9); Mono % (Auto) 7.1 % (0.0-8.0); Neut # (Auto) 4.6 th/mm3 (1.8-7.7); Neut % (Auto) 64.2 % (16.0-70.0); Platelet Count 290 th/mm3 (150-450); Red Blood Count 4.25 mil/mm3 (4.00-5.30); Red Cell Distribution Width 13.1 % (11.6-17.2); White Blood Count 7.2 th/mm3 (4.0-11.0)
[2018-02-18] MEDS: Metoprolol Tartrate 50 MG Tablet PO SCH ×2 (10:09→20:49)
--- NOTE | 2018-02-18 12:09 | P.PNPSY ---
Subjective Remarks: Patient seen and examined with sitter. Chart reviewed. Case discussed with nursing staff. Case discussed in treatment team who note that the patient has increasing periods of lucidity with decreasing periods of hyperkinetic racing around the unit. On my exam, patient is calm and appropriate in conversation. She makes some non sequitur statements, but in general our dialogue is completely comprehensible. She has just come [place] and is looking forward to getting lunch. No side effects from medications. No physical complaints. Vital Signs Temp Pulse Resp BP Pulse Ox 02/17/18 18:00 97.5 F L 97 H 18 114/71 99 Intake and Output 02/17/18 02/18/18 02/18/18 22:59 06:59 14:59 Intake Total 600 / 600 240 / 240 Balance 600 / 600 240 / 240 Intake: Oral 600 / 600 240 / 240 Laboratory Results - last 24 hr 02/18/18 07:38 WBC 7.2 RBC 4.25 Hgb 13.4 Hct 40.3 MCV 94.8 MCH 31.6 MCHC 33.3 RDW 13.1 Plt Count 290 MPV 7.9 Neut % (Auto) 64.2 Lymph % (Auto) 24.0 Dane % (Auto) 7.1 Eos % (Auto) 4.2 H Baso % (Auto) 0.5 Neut # (Auto) 4.6 Lymph # (Auto) 1.7 Dane # (Auto) 0.5 Eos # (Auto) 0.3 Baso # (Auto) 0.0 WBC Differential . Differential Comment Auto diff final Labs reviewed. ANC remains adequate for clozapine therapy. Review of Systems All other systems reviewed negative except as stated in HPI (Limitation: Poor historian) Mental Status Examination Appearance: Appropriate Consciousness: Alert Orientation: Person, Place Motor Activity: Other (No abnormal motor movements noted) Speech: Unremarkable Language: Other (Generally more coherent but still somewhat rambling) Fund of Knowledge: Inadequate Attention and Concentration: Easily distracted Memory: Unremarkable (Fair) Mood: Appropriate Affect: Appropriate Thought Process & Associations: Circumstantial Thought Content: Bizarre thinking Hallucination Type: None Delusion Type: None Suicidal Ideation: No Homicidal Ideation: No Insight: Poor Judgment: Poor Assessment and Plan - Assessment (1) Schizoaffective disorder, bipolar type Code(s): F25.0 - Schizoaffective disorder, bipolar type Status: Acute - Plan Plan: Ongoing trajectory of improvement with clozapine. I will titrate clozapine to 75 mg in the morning and 150 mg at bedtime. Continue weekly CBCs. Continue Zyprexa 5 mg 3 times a day as ordered. Continue to monitor on the medical psychiatric unit with one-to-one for behavioral redirection. Continue other care as ordered. Justification for Continued Inpatient Stay: Medication changes. Resolving impairment in reality construction. High risk for decompensation in less restrictive environment. Discharge Planning: Pending psychiatric stabilization. Request Healthcare Surrogate/Guardian Advocate?: Yes
[2018-02-19] MEDS: Metoprolol Tartrate 50 MG Tablet PO SCH ×2 (09:14→20:42)
--- NOTE | 2018-02-19 11:23 | P.PNPSY ---
Subjective Remarks: Patient seen and examined with nurse. Chart reviewed. Case discussed with nursing staff. No significant behavioral issues noted overnight. Case discussed with counselor. On my examination today, the patient is able to maintain an extended conversation, although her speech is still replete with non sequiturs and her thought process is tangential at times. Affect is fairly appropriate throughout. She continues to report hearing "good voices." No CAH to hurt self/others. No side effects from medications besides some mild dizziness. No other physical complaints. Vital Signs Temp Pulse Resp BP Pulse Ox 02/19/18 05:16 97.5 F L 93 H 17 104/60 99 02/18/18 18:00 98.3 F 108 H 18 116/71 96 Intake and Output 02/18/18 02/19/18 02/19/18 22:59 06:59 14:59 Intake Total 480 / 480 60 / 60 Output Total 2 / 2 Balance 478 / 478 60 / 60 Intake: Oral 480 / 480 60 / 60 Output: Urine 2 / 2 Labs reviewed. No new labs. Review of Systems All other systems reviewed negative except as stated in HPI (Limitation: Poor historian) Mental Status Examination Appearance: Appropriate Consciousness: Alert Orientation: Person, Place Motor Activity: Other (No motor abnormalities noted) Speech: Unremarkable Language: Other (Again more coherent but still somewhat rambling) Fund of Knowledge: Inadequate Attention and Concentration: Easily distracted Memory: Unremarkable (Fair) Mood: Appropriate Affect: Appropriate Thought Process & Associations: Circumstantial (At times tangential) Thought Content: Bizarre thinking Hallucination Type: Auditory Delusion Type: None Suicidal Ideation: No Suicidal Plan: No Suicidal Intention: No Homicidal Ideation: No Homicidal Plan: No Homicidal Intention: No Insight: Poor Judgment: Poor Assessment and Plan - Assessment (1) Schizoaffective disorder, bipolar type Code(s): F25.0 - Schizoaffective disorder, bipolar type Status: Acute - Plan Plan: Check orthostatic vital signs. Fall precautions. Titrate clozapine to 100/ 150mg to target residual psychotic symptoms. Continue one-to-one for behavioral redirection. I think the patient would benefit from more social interaction and have left an order with the nurse that the patient is to attend 2600 groups when she is able. Continue other medications and care as ordered. Justification for Continued Inpatient Stay: Medication changes. Impairment in reality construction. High risk for decompensation in less restrictive environment. Discharge Planning: Pending psychiatric stabilization. Request Healthcare Surrogate/Guardian Advocate?: Yes
[2018-02-19] MEDS: LORazepam 1 MG Tablet PO PRN (12:42)
[2018-02-20] MEDS: Metoprolol Tartrate 50 MG Tablet PO SCH ×2 (08:50→20:55)
--- NOTE | 2018-02-20 11:22 | P.PNPSY ---
Subjective Remarks: Patient seen and examined. Chart reviewed. Case discussed with nursing staff. On my examination today, the patient continues to improve with clozapine therapy. Although she was fairly tangential under the stress of the [place] [address] situation earlier today, she is quite relevant in conversation with me later on the floor. She continues to complain of some mild dizziness from medications I note that she is somewhat orthostatic by diastolic blood pressure. No other side effects. No physical complaints otherwise. Vital Signs Temp Pulse Resp BP Pulse Ox 02/20/18 06:04 98.8 F 81 16 110/58 L 100 02/19/18 22:00 118 H 02/19/18 17:15 97.4 F L 137 H 16 100/55 L 99 Intake and Output 02/20/18 02/20/18 02/20/18 06:59 14:59 22:59 Intake Total 960 / 960 Balance 960 / 960 Intake: Oral 960 / 960 Other: # Voids 2 Weight 78 kg Labs reviewed. No new labs. Review of Systems All other systems reviewed negative except as stated in HPI (Limitation: Poor historian) Mental Status Examination Appearance: Appropriate Consciousness: Alert Orientation: Person, Place Motor Activity: Other (No abnormal motor movements noted) Speech: Unremarkable Language: Other (Again more coherent but still somewhat rambling) Fund of Knowledge: Inadequate Attention and Concentration: Easily distracted Memory: Unremarkable (Fair) Mood: Appropriate Affect: Appropriate Thought Process & Associations: Circumstantial (With some tangentiality at times ) Thought Content: Bizarre thinking Hallucination Type: None Delusion Type: None Suicidal Ideation: No Homicidal Ideation: No Insight: Poor Judgment: Poor Assessment and Plan - Assessment (1) Schizoaffective disorder, bipolar type Code(s): F25.0 - Schizoaffective disorder, bipolar type Status: Acute - Plan Plan: Ongoing signs of improvement with clozapine therapy. Discontinue Zyprexa in hopes that this will lessen orthostasis as we titrate clozapine. Titrate clozapine to 125/175mg with plans for ongoing titration to effect. Please have staff repeat orthostatics tomorrow to ensure patient does not experience worsening orthostasis with med changes. I have counseled the patient on safe standing. Weekly CBCs for clozapine therapy. Continue to monitor on the inpatient unit. Continue other care as ordered. Patient's case presented in [place] and placed in continuance by the starch and prosize mixer for 4 weeks with brother Ravi to serve as health care surrogate. Justification for Continued Inpatient Stay: Medication changes. Resolving impairments in reality construction. High risk for decompensation in less restrictive environment. Discharge Planning: Pending psychiatric stabilization. Request Healthcare Surrogate/Guardian Advocate?: Yes
[2018-02-20] MEDS: LORazepam 1 MG Tablet PO PRN (17:07)
[2018-02-21] MEDS: Metoprolol Tartrate 50 MG Tablet PO SCH ×2 (08:51→22:40)
--- NOTE | 2018-02-21 15:39 | P.PNPSY ---
Subjective Remarks: Patient seen for follow-up, chart reviewed. Discussion nursing staff reported the patient appears to be doing better, more redirectable. Patient continues on one-to-one observation for safety. Patient was found family on unit noted B , cooperative. Patient noted to be able to engage effectively in interview answering appropriately. Patient states that she is feeling "good" reporting tolerating medications but does report having some dizziness at times. She is mentions having spoken to Calvin which went well. Patient denying any perceptual disturbances at this time. Review of Systems All other systems reviewed negative except as stated in HPI Mental Status Examination Appearance: Appropriate Consciousness: Alert Orientation: Person, Place Motor Activity: Other (No abnormal motor movements noted) Speech: Unremarkable Language: Adequate Fund of Knowledge: Inadequate Attention and Concentration: Easily distracted (improving) Memory: Unremarkable (Fair) Mood: Appropriate Affect: Appropriate Thought Process & Associations: Linear Thought Content: Appropriate Hallucination Type: None Delusion Type: None Suicidal Ideation: No Suicidal Plan: No Suicidal Intention: No Homicidal Ideation: No Homicidal Plan: No Homicidal Intention: No Insight: Poor Judgment: Poor Assessment and Plan - Assessment (1) Schizoaffective disorder, bipolar type Code(s): F25.0 - Schizoaffective disorder, bipolar type Status: Acute - Plan Plan: Patient was able to interact appropriately during interview, not noted to be tangential and circumstantial with good behavioral control. Patient tolerating medications well but does report having some dizziness. We will continue to monitor for orthostatic hypotension. We will continue current treatment for now as patient appears to responding well to current dose. Continue to monitor mood and behavior. Discharge planning in progress. Justification for Continued Inpatient Stay: At risk of further decompensation a lower level of care. Request Healthcare Surrogate/Guardian Advocate?: Yes
[2018-02-22] MEDS: Metoprolol Tartrate 50 MG Tablet PO SCH ×2 (09:31→20:15)
[2018-02-22] MEDS: LORazepam 1 MG Tablet PO PRN ×2 (10:20→20:15)
--- NOTE | 2018-02-22 14:42 | P.PNPSY ---
Subjective Remarks: Pt seen and discussed with staff. Chart reviewed. She remains intrusive and manic, but thought process is improving. Concentration is poor but there has been some improvement in her ability to engage in conversation. She is reluctantly compliant wt medications. Mental Status Examination Appearance: Appropriate Consciousness: Alert Orientation: Person, Place Motor Activity: Other (No abnormal motor movements noted) Speech: Unremarkable Language: Adequate Fund of Knowledge: Inadequate Attention and Concentration: Easily distracted (improving) Memory: Unremarkable (Fair) Mood: Other (hypomanic) Affect: Labile Thought Process & Associations: Linear Thought Content: Racing thoughts (mild) Hallucination Type: None Delusion Type: None Suicidal Ideation: No Suicidal Plan: No Suicidal Intention: No Homicidal Ideation: No Homicidal Plan: No Homicidal Intention: No Insight: Poor Judgment: Poor Assessment and Plan - Assessment (1) Schizoaffective disorder, bipolar type Code(s): F25.0 - Schizoaffective disorder, bipolar type Status: Acute - Plan Plan: Continue current tx plan Justification for Continued Inpatient Stay: impairments in reality testing and social functioning Request Healthcare Surrogate/Guardian Advocate?: Yes
[2018-02-23] MEDS: Metoprolol Tartrate 50 MG Tablet PO SCH ×2 (09:32→20:24)
[2018-02-23] MEDS: LORazepam 1 MG Tablet PO PRN ×2 (12:02→20:24)
--- NOTE | 2018-02-23 15:44 | P.PNPSY ---
Subjective Remarks: Pt seen and discussed with staff. She required ativan last night and today for anxiety. She is more coherent in thought process, but she continues to engage in increased behaviors such as repeatedly changing clothing. Less intrusive today. No SI/HI Mental Status Examination Appearance: Appropriate Consciousness: Alert Orientation: Person, Place Motor Activity: Other (No abnormal motor movements noted) Speech: Unremarkable Language: Adequate Fund of Knowledge: Inadequate Attention and Concentration: Easily distracted (improving) Memory: Unremarkable (Fair) Mood: Other (hypomanic) Affect: Labile Thought Process & Associations: Linear Thought Content: Racing thoughts (lessening) Hallucination Type: None Delusion Type: None Suicidal Ideation: No Suicidal Plan: No Suicidal Intention: No Homicidal Ideation: No Homicidal Plan: No Homicidal Intention: No Insight: Fair Judgment: Impulsive Assessment and Plan - Assessment (1) Schizoaffective disorder, bipolar type Code(s): F25.0 - Schizoaffective disorder, bipolar type Status: Acute - Plan Plan: Continue current tx plan Justification for Continued Inpatient Stay: risk of decompensation, impairments in social functioning Request Healthcare Surrogate/Guardian Advocate?: Yes
--- NOTE | 2018-02-24 09:03 | P.PNPSY ---
Subjective Remarks: Patient seen and examined with sitter. Chart reviewed. On my exam, patient is fairly relevant in conversation. She exhibits fairly appropriate behavior throughout (e.g. she offers handshake at the conclusion of our interview). Some mild echopraxia noted. She continues to wander at times. She denies SI/ HI. Denies AVH. Denies any further dizziness saying "no, not anymore. I take Magnesium for that." Some tangentiality remains at times during our interaction. No side effects from medications. No physical complaints. Left for patient's brother/Ravi CHEN to discuss patient's progress. Will await a call back. Vital Signs Temp Pulse Resp BP Pulse Ox 02/24/18 05:00 97.8 F 103 H 16 117/57 L 99 02/23/18 17:33 97.4 F L 88 16 135/80 97 Intake and Output 02/23/18 02/24/18 02/24/18 22:59 06:59 14:59 Intake Total 1200 / 1200 580 / 580 240 / 240 Balance 1200 / 1200 580 / 580 240 / 240 Intake: Oral 1200 / 1200 480 / 480 240 / 240 Oral Supplement 100 / 100 Other: # Voids 3 2 Labs reviewed. No new labs. Review of Systems All other systems reviewed negative except as stated in HPI (Limitation: Poor historian) Mental Status Examination Appearance: Appropriate Consciousness: Alert Orientation: Person, Place (At least) Motor Activity: Other (No motor abnormalities noted) Speech: Unremarkable Language: Adequate Fund of Knowledge: Inadequate Attention and Concentration: Easily distracted (Continues to improve) Memory: Unremarkable Mood: Other (Mildly elevated) Affect: Labile (Mild) Thought Process & Associations: Other (Generally linear but some episodes of tangentiality) Thought Content: Racing thoughts (lessening) Hallucination Type: None Delusion Type: None Suicidal Ideation: No Suicidal Plan: No Suicidal Intention: No Homicidal Ideation: No Homicidal Plan: No Homicidal Intention: No Insight: Fair Judgment: Impulsive Assessment and Plan - Assessment (1) Schizoaffective disorder, bipolar type Code(s): F25.0 - Schizoaffective disorder, bipolar type Status: Acute - Plan Plan: Patient continues trajectory of improvement with clozapine. I will titrate clozapine to 125mg qAM and 200mg qHS for further management of psychiatric condition. CBC for clozapine therapy ordered for tomorrow morning. Check orthostatic vital signs. Continue one-to-one sitter for behavioral redirection , although patient has improved so much that we might begin to consider discontinuing sitter. Continue to monitor on the medical psychiatric unit. Continue other medications and care as ordered. Justification for Continued Inpatient Stay: Medication changes. High risk for decompensation in less restrictive environment. Discharge Planning: Pending psychiatric stabilization. Request Healthcare Surrogate/Guardian Advocate?: Yes
[2018-02-24] MEDS: Metoprolol Tartrate 50 MG Tablet PO SCH ×2 (10:09→21:00)
[2018-02-25] MEDS: Metoprolol Tartrate 50 MG Tablet PO SCH ×2 (09:13→21:00)
[2018-02-25 12:09] LABS: Baso % (Auto) 0.3 % (0.0-2.0); Eos # (Auto) 0.3 th/mm3 (0.0-0.4); Eos % (Auto) 2.7 % (0.0-4.0); Hematocrit 39.6 % (35.0-46.0); Hemoglobin 13.4 gm/dL (11.6-15.3); Lymph # (Auto) 2.1 th/mm3 (1.0-4.8); Lymph % (Auto) 17.1 % (9.0-44.0); Mean Corpuscular HGB Conc 33.9 % (32.0-36.0); Mean Corpuscular Hemoglobin 31.5 pg (27.0-34.0); Mean Corpuscular Volume 92.9 fL (80.0-100.0); Mean Platelet Volume 8.2 fL (7.0-11.0); Mono # (Auto) 0.8 th/mm3 (0.0-0.9); Mono % (Auto) 6.5 % (0.0-8.0); Neut # (Auto) 8.9 th/mm3 (1.8-7.7); Neut % (Auto) 73.4 % (16.0-70.0); Platelet Count 313 th/mm3 (150-450); Red Blood Count 4.27 mil/mm3 (4.00-5.30); White Blood Count 12.1 th/mm3 (4.0-11.0)
--- NOTE | 2018-02-25 14:21 | P.PNPSY ---
Subjective Remarks: Patient seen and examined with sitter for behavioral redirection at the bedside. Chart reviewed. Orthostatic blood pressures noted. Patient is not orthostatic by blood pressure. I have asked nurse to check pulse rates to ensure she is not orthostatic by pulse. Case discussed with nursing staff who reports the patient is having a great day. She is noted to be less manic and showered and has been eating well. Case discussed in treatment team. On my examination today, the patient is calm with minimal hyperkinetic activity. Speech is fully intelligible now, but patient struggles to follow a line of thought and does still go off on tangents at times. Affective lability is decreased. No reported side effects from medications besides mild fatigue. No physical complaints. Vital Signs Temp Pulse Resp BP Pulse Ox 02/25/18 06:00 98.2 F 90 16 99/53 L 95 02/24/18 18:05 97.2 F L 118 H 19 145/86 H 98 Intake and Output 02/24/18 02/25/18 02/25/18 22:59 06:59 14:59 Intake Total 820 / 820 Balance 820 / 820 Intake: Oral 720 / 720 Oral Supplement 100 / 100 Other: # Voids 1 Laboratory Results - last 24 hr 02/25/18 11:07 WBC 12.1 H RBC 4.27 Hgb 13.4 Hct 39.6 MCV 92.9 MCH 31.5 MCHC 33.9 RDW 13.0 Plt Count 313 MPV 8.2 Neut % (Auto) 73.4 H Lymph % (Auto) 17.1 [place] % (Auto) 6.5 Eos % (Auto) 2.7 Baso % (Auto) 0.3 Neut # (Auto) 8.9 H Lymph # (Auto) 2.1 [place] # (Auto) 0.8 Eos # (Auto) 0.3 Baso # (Auto) 0.0 WBC Differential . Differential Comment Auto diff final Labs reviewed. Mild leukocytosis without signs or symptoms of infection. ANC remains adequate for clozapine therapy. Review of Systems All other systems reviewed negative except as stated in HPI (Limitation: Poor historian) Mental Status Examination Appearance: Appropriate Consciousness: Alert Orientation: Person, Place (At least) Motor Activity: Other (No abnormal motor movements noted) Speech: Unremarkable Language: Adequate Fund of Knowledge: Inadequate Attention and Concentration: Easily distracted (Continues to improve) Memory: Unremarkable Mood: Other (Calm) Affect: Other (For the most part appropriate) Thought Process & Associations: Other (Generally linear but still some episodes of tangentiality) Thought Content: Appropriate Hallucination Type: None Delusion Type: None Suicidal Ideation: No Suicidal Plan: No Suicidal Intention: No Homicidal Ideation: No Homicidal Plan: No Homicidal Intention: No Insight: Fair Judgment: Impulsive Assessment and Plan - Assessment (1) Schizoaffective disorder, bipolar type Code(s): F25.0 - Schizoaffective disorder, bipolar type Status: Acute - Plan Plan: Ongoing trajectory of slow improvement with clozapine therapy. Continue clozapine titration: 150 mg in the morning and 200 mg at bedtime. Continue weekly CBCs. Follow-up orthostatic pulse rates. Continue to monitor on the inpatient unit. Continue one-to-one for behavioral redirection at this time. Continue other medications and care as ordered. Justification for Continued Inpatient Stay: Medication changes. High risk for decompensation in less restrictive environment. Discharge Planning: Pending psychiatric stabilization. I have asked the counselor to reach out to brother to have him make a visit to assess patient's progress towards recent baseline. Request Healthcare Surrogate/Guardian Advocate?: Yes
[2018-02-26] MEDS: Metoprolol Tartrate 50 MG Tablet PO SCH ×2 (09:20→21:50)
--- NOTE | 2018-02-26 14:27 | P.PNPSY ---
Subjective Remarks: Patient seen and examined with nurse. Chart reviewed. Case discussed with nursing staff who reports patient was tearful this morning saying that she had lost half of the blood in her body. She reportedly slept poorly overnight. I see the patient as she is returning from painting activity. She is able to converse with me for a short time in a coherent fashion about her interest in painting. 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 She does not verbalize any delusional material for me. She does have some ongoing tangentiality. Complains of ongoing dizziness (no falls ) and some nightmares with medications but is otherwise tolerating current regimen well. Nurse did check orthostatic BP and HR yesterday, and patient was not orthostatic by BP or HR. No other medication side effects or physical complaints. Vital Signs Temp Pulse Resp BP Pulse Ox 02/26/18 06:00 97.7 F 101 H 16 110/73 99 02/25/18 17:51 97.9 F 115 H 20 116/58 L 95 Intake and Output 02/25/18 02/26/18 02/26/18 22:59 06:59 14:59 Intake Total 1900 / 1900 600 / 600 Balance 1900 / 1900 600 / 600 Intake: Oral 1800 / 1800 600 / 600 Oral Supplement 100 / 100 Other: # Voids 2 3 Labs reviewed. No new labs. Review of Systems All other systems reviewed negative except as stated in HPI (Limitation: Poor historian) Mental Status Examination Appearance: Appropriate Consciousness: Alert Orientation: Person, Place (At least) Motor Activity: Other (No motor abnormalities noted) Speech: Unremarkable Language: Adequate Fund of Knowledge: Inadequate Attention and Concentration: Easily distracted (More focused today) Memory: Unremarkable Mood: Appropriate Affect: Other (Generally appropriate) Thought Process & Associations: Other (More linear with only occasional episodes of tangentiality) Thought Content: Appropriate Hallucination Type: None Delusion Type: None Suicidal Ideation: No Suicidal Plan: No Suicidal Intention: No Homicidal Ideation: No Homicidal Plan: No Homicidal Intention: No Insight: Fair Judgment: Impulsive Assessment and Plan - Assessment (1) Schizoaffective disorder, bipolar type Code(s): F25.0 - Schizoaffective disorder, bipolar type Status: Acute - Plan Plan: Continue clozapine as ordered for now. It is possible that patient's dizziness is related to titrating of clozapine and that she needs time to acclimate to current dose of clozapine. I will request hospitalist evaluate patient's complaints of dizziness in setting of negative orthostatics to ensure that there is not some medical etiology unrelated to medications. Continue one-to- one for behavioral redirection. Continue other medications and care as ordered. Continue to monitor on the inpatient unit. Justification for Continued Inpatient Stay: Complicating condition. Impairment in reality construction. Risk for decompensation in less restrictive environment. Discharge Planning: Pending psychiatric stabilization. Patient is improving. Request Healthcare Surrogate/Guardian Advocate?: Yes
--- NOTE | 2018-02-26 17:10 | P.CONIM ---
History of Present Illness Service: [facility] Reason for Consult: norma Primary Care Provider: No Primary Care Physician Family Provider: UNKNOWN History of Present Illness: 22 Y/O female with schizephrenia, catatonic type admitted to the psychiatric unit for treatment. Patient has been progressing well with titration of psych meds however she is now reporting lightheadedness. JASON RN. Patient not sleeping well. She reports lightheadedness and fatigue that starts after 3 PM. Vital signs normal. No chest pain or shortness of breath. No symptoms in the morning. Review of Systems All other systems reviewed negative except as stated in HPI [facility] - History History Provided By: Patient, Law Enforcement - Medical History Medical History: Medical History (Last Reviewed 02/27/18 @ 21:37 by Mary Anne Dubose MD) Surgical history unknown (Acute) Bipolar disorder (Acute) Schizophrenia, catatonic type (Acute) - Surgical History Surgical History: Surgical History (Last Reviewed 02/27/18 @ 21:37 by Mary Anne Dubose MD) No history of previous surgery - Family History Family History: Family History (Last Reviewed 02/27/18 @ 21:37 by Mary Anne Dubose MD) Other Bipolar disorder Schizophrenia - Tobacco History Second Hand Smoke Exposure: No Tobacco Use In Past 30 Days: No Smoking Status: Never smoker - Alcohol History How Often Do You Have a Drink Containing Alcohol: Never - Substance Use History Substance History: No History of Abuse - Immunization History Tetanus Immunization: Unsure Hx Influenza Vaccine This Season: Unable to Assess Medications and Allergies Active Medications: Active Medications Al Hydrox/Mg Hydrox/Simethicone (Mag-Al Plus Susp Liq) 30 ml PO Q6H PRN PRN Reason: DYSPEPSIA Al Hydroxide/Mg Hydroxide (Milk Of Magnesia Liq) 30 ml PO Q12H PRN PRN Reason: Mild Constipation Last Admin: 02/16/18 00:43 Dose: 30 ml Benzocaine (Hurricaine 20% Oral [place]) 1 spray OROPHARYNG Q6H PRN PRN Reason: SORE THROAT Benzonatate (Tessalon Perles) 100 mg PO Q8H PRN PRN Reason: COUGH Last Admin: 02/13/18 10:17 Dose: 100 mg Benztropine Mesylate (Cogentin Inj) 1 mg IM BID PRN PRN Reason: EPS, unable to take PO Benztropine Mesylate (Cogentin) 1 mg PO BID PRN PRN Reason: EXTRA PYRAMIDAL SYMPTOMS Last Admin: 02/09/18 15:18 Dose: 1 mg Clozapine (Clozaril) 200 mg PO [facility] Last Admin: 02/25/18 21:00 Dose: 200 mg Clozapine (Clozaril) 150 mg PO DAILY [facility] Last Admin: 02/26/18 09:19 Dose: 150 mg Eszopiclone (Lunesta) 3 mg PO [facility] Last Admin: 02/25/18 21:00 Dose: 3 mg Lorazepam (Ativan) 1 mg PO Q6H PRN PRN Reason: MODERATE TO SEVERE ANXIETY Last Admin: 02/23/18 20:24 Dose: 1 mg Lorazepam (Ativan Inj) 1 mg IM Q6H PRN PRN Reason: Anxiety, unable to take PO Last Admin: 02/18/18 09:51 Dose: 1 mg Metoprolol Tartrate (Lopressor) 50 mg PO BID [facility] Last Admin: 02/26/18 09:20 Dose: 50 mg Miscellaneous (Pill Splitter) [address] [facility] Multivitamins (Theragran) 1 tab PO DAILY [facility] Last Admin: 02/26/18 09:20 Dose: 1 tab Allergies Allergy/AdvReac Type Severity Reaction Status Date / Time No Known Allergies Allergy Uncoded 10/17/16 20:31 Home Medications Medication Instructions Recorded Confirmed Type alprazolam [Xanax] 0.5 mg PO Q6H PRN 02/04/18 02/04/18 History eszopiclone [Lunesta] 3 mg PO HS 02/04/18 02/04/18 History metoprolol tartrate [Lopressor] 50 mg PO BID 02/04/18 02/04/18 History multivitamin 1 tab PO DAILY 02/04/18 02/04/18 History olanzapine 10 mg PO TID 02/04/18 02/04/18 History Exam Vital signs: Vital Signs 02/25/18 17:51 02/26/18 06:00 Temperature 97.9 F 97.7 F Pulse Rate 115 H 101 H Respiratory Rate 20 16 Blood Pressure 116/58 L 110/73 Pulse Oximetry 95 99 Intake & Output 02/25/18 02/26/18 02/26/18 18:59 06:59 18:59 Intake Total 1560 / 1560 340 / 340 1560 / 1560 Balance 1560 / 1560 340 / 340 1560 / 1560 Intake: Oral 1560 / 1560 240 / 240 1560 / 1560 Oral Supplement 100 / 100 Other: # Voids 2 3 Narrative: GENERAL: This is a well-nourished, well-developed patient, in no apparent distress. CARDIOVASCULAR: Regular rate and rhythm without murmurs, gallops, or rubs. RESPIRATORY: Clear to auscultation. Breath sounds equal bilaterally. No wheezes , rales, or rhonchi. GASTROINTESTINAL: Abdomen soft, non-tender, nondistended. Normal active bowel sounds MUSCULOSKELETAL: Extremities without clubbing, cyanosis, or edema. NEURO: Alert & Oriented x4 to person, place, time, situation. Moves all ext x4 PSYCH: Appear calm. Seems appropriate. Results - Labs CBC & Chem 7: 02/25/18 11:07 02/06/18 08:18 Assessment and Plan - Assessment (1) Dizziness Code(s): R42 - Dizziness and giddiness Status: Acute (2) Bipolar disorder, current episode manic without psychotic features Code(s): F31.10 - Bipolar disorder, current episode manic without psychotic features, unspecified Status: Acute (3) Schizoaffective disorder, bipolar type Code(s): F25.0 - Schizoaffective disorder, bipolar type Status: Acute - Plan I suspect reported dizziness is related to medication and/or lack of sleep. I understand Clozaril is being titrated. I agree she may need time to adjust to the medication or we may need to decrease the morning dose since she reports that her dizziness symptoms usually starts after 3 PM. She had an MRI last year so I thought any structural neuro issues. She does have persistent sinus tachycardia and is on Metoprolol. Can consider increasing the dose for better control but bb can make her more tired therefore I would not make any changes in beta william a this time. She is young, therefore atherosclerotic disease is highly unlikely. Orthostatic vital signs have been normal. Recommend monitoring her response to decreased dose of Clozaril. Thank you for allowing me to participate in the patient's care. Will sign off for now. Please call or reconsult as needed
[2018-02-27] MEDS: LORazepam 1 MG Tablet PO PRN (08:24)
[2018-02-27] MEDS: Metoprolol Tartrate 50 MG Tablet PO SCH ×2 (08:24→20:36)
--- NOTE | 2018-02-27 11:57 | P.PNPSY ---
Subjective Remarks: Patient seen and examined with sitter at bedside. Chart reviewed. Case discussed with nursing staff. Case discussed with counselor. Case discussed briefly with Dr. Dubose from the hospitalist service, and I have adjusted clozapine dosing in line with his recommendations to lessen dizziness. On my exam, I find the patient writing in a coloring book. She tells me that she is writing the names of songs that she likes. She exhibits mild echopraxia. Affect is slightly elevated and exuberant. She is able to converse on a single theme for about half a minute, which represents an improvement for her. No complaints of dizziness. No side effects from medications. No physical complaints. Vital Signs Temp Pulse Resp BP Pulse Ox 02/27/18 05:45 97.5 F L 93 H 16 106/59 L 02/27/18 05:43 97.5 F L 93 H 16 106/59 L 02/26/18 18:04 97.8 F 103 H 18 125/78 99 Intake and Output 02/26/18 02/27/18 02/27/18 22:59 06:59 14:59 Intake Total 720 / 720 60 / 60 Balance 720 / 720 60 / 60 Intake: Oral 720 / 720 60 / 60 Labs reviewed. No new labs. Review of Systems All other systems reviewed negative except as stated in HPI (Limitation: Poor historian) Mental Status Examination Appearance: Appropriate Consciousness: Alert Orientation: Person, Place (At least) Motor Activity: Other (No abnormal motor movements noted) Speech: Unremarkable Language: Adequate Fund of Knowledge: Inadequate Attention and Concentration: Easily distracted (More focused today) Memory: Unremarkable Mood: Other (Mildly elevated) Affect: Other (Mildly expansive but generally appropriate) Thought Process & Associations: Other (Again more linear with periodic episodes of tangentiality) Thought Content: Appropriate Hallucination Type: None Delusion Type: None Suicidal Ideation: No Homicidal Ideation: No Insight: Fair Judgment: Impulsive Assessment and Plan - Assessment (1) Schizoaffective disorder, bipolar type Code(s): F25.0 - Schizoaffective disorder, bipolar type Status: Acute - Plan Plan: Adjust clozapine dosing to 100 mg in the morning and 250 mg at bedtime to try to lessen complaints of dizziness. We will plan for slower titration, primarily increasing the HS dose, to try to lessen dizziness going forward. Continue weekly CBCs. Continue to monitor on the medical psychiatric unit with one-to-one sitter, although we will plan to consider discontinuation of sitter soon as it is not clear that ongoing constant behavioral redirection is required given improvement with clozapine. Continue other medications and care as ordered. Justification for Continued Inpatient Stay: Medication changes. Complicating condition. Resolving impairments in reality construction. Risk for decompensation in less restrictive environment. Discharge Planning: Pending psychiatric stabilization. Case discussed with counselor. Request Healthcare Surrogate/Guardian Advocate?: Yes
[2018-02-28] MEDS: Metoprolol Tartrate 50 MG Tablet PO SCH (08:56)
--- NOTE | 2018-02-28 11:44 | P.PNPSY ---
Subjective Remarks: Patient seen and examined during fresh air with 1:1 sitter. Chart reviewed. Case discussed with nursing staff. On my examination today, the patient is more organized. For the first time that I can recall she asks clearly to be released home soon. She denies SI/HI. Denies AVH. Complains of some mild residual dizziness "in the morning because my mom has beta thalassemia. Margarito has the same problem." No other side effects reported. No other physical complaints. Patient requests that I call her brother, Ravi. I tried to reach out to Ravi several times this morning (and even had plastic molding operator dial number), but it appears this number is non-functional at present. Vital Signs Temp Pulse Resp BP Pulse Ox 02/28/18 05:32 97.6 F 97 H 16 115/74 94 L 02/27/18 17:14 98.6 F 91 H 16 123/60 96 Intake and Output 02/27/18 02/28/18 02/28/18 22:59 06:59 14:59 Intake Total 480 / 480 1440 / 1440 Balance 480 / 480 1440 / 1440 Intake: Oral 480 / 480 1440 / 1440 Other: # Voids 0 # Bowel Movements 2 Labs reviewed. No new labs. Review of Systems All other systems reviewed negative except as stated in HPI Mental Status Examination Appearance: Appropriate Consciousness: Alert Orientation: Person, Place Motor Activity: Other (No motor abnormalities noted) Speech: Unremarkable Language: Adequate Fund of Knowledge: Inadequate Attention and Concentration: Easily distracted (More focused today) Memory: Unremarkable Mood: Appropriate Affect: Appropriate Thought Process & Associations: Other (Some ongoing tangentiality but in general fairly linear) Thought Content: Appropriate Hallucination Type: None Delusion Type: None Suicidal Ideation: No Suicidal Plan: No Suicidal Intention: No Homicidal Ideation: No Homicidal Plan: No Homicidal Intention: No Insight: Fair Judgment: Impulsive Assessment and Plan - Assessment (1) Schizoaffective disorder, bipolar type Code(s): F25.0 - Schizoaffective disorder, bipolar type Status: Acute - Plan Plan: Continue current dose of clozapine as ordered. Continue weekly CBCs. In discussing case with patient's nurse it seems that the patient is somewhat isolated socially up on the medical psychiatric unit. Given the patient's symptomatic improvement, I think it is appropriate at this juncture to transfer her to the 2600 unit for more socialization. I will continue the one-to-one sitter for 24 hours after the transfer, but sitter can be discontinued thereafter if the patient is adapting to the 2600 unit well without behavioral disturbance. Continue to monitor on inpatient unit. Continue other medications and care as ordered. Justification for Continued Inpatient Stay: Impairment in reality construction, resolving. High risk for decompensation in less restrictive environment. Discharge Planning: Patient is improving. Hopeful for discharge in the next week or 2. Request Healthcare Surrogate/Guardian Advocate?: Yes
--- NOTE | 2018-02-28 16:23 | P.PN ---
Subjective Interval history: Mild lightheadedness when she gets up in the morning, states that is better. Yesterday she walked around the unit a lot, she had no dizziness, gait was steady per sitter. Had a good BM, no abd. pain. No n/v. Physical Exam Vital signs: Vital Signs 02/27/18 17:14 02/28/18 05:32 Temperature 98.6 F 97.6 F Pulse Rate 91 H 97 H Respiratory Rate 16 16 Blood Pressure 123/60 115/74 Pulse Oximetry 96 94 L Intake & Output 02/27/18 02/28/18 02/28/18 18:59 06:59 18:59 Intake Total 480 / 480 1440 / 1440 480 / 480 Balance 480 / 480 1440 / 1440 480 / 480 Intake: Oral 480 / 480 1440 / 1440 480 / 480 Other: # Voids 0 # Bowel Movements 2 Narrative: GENERAL: Well-nourished, well-developed patient in no apparent distress. SKIN: Warm and dry. HEAD: Atraumatic. Normocephalic. EYES: Pupils equal and round. No scleral icterus. No injection or drainage. ENT: No nasal bleeding or discharge. Mucous membranes pink and moist. NECK: Trachea midline. No JVD. CARDIOVASCULAR: Regular rate and rhythm. RESPIRATORY: No accessory muscle use. Clear to auscultation. Breath sounds equal bilaterally. GASTROINTESTINAL: Abdomen soft, non-tender, nondistended. Hepatic and splenic margins not palpable. MUSCULOSKELETAL: Extremities without clubbing, cyanosis, or edema. No obvious deformities. NEUROLOGICAL: Awake and alert. No obvious cranial nerve deficits. Motor grossly within normal limits. Five out of 5 muscle strength in the arms and legs. Normal speech. PSYCHIATRIC: Appropriate mood and affect; insight and judgment normal. Results - Labs CBC & Chem 7: 02/25/18 11:07 02/06/18 08:18 Assessment and Plan - Assessment (1) Dizziness Code(s): R42 - Dizziness and giddiness Status: Acute (2) Bipolar disorder, current episode manic without psychotic features Code(s): F31.10 - Bipolar disorder, current episode manic without psychotic features, unspecified Status: Acute (3) Schizoaffective disorder, bipolar type Code(s): F25.0 - Schizoaffective disorder, bipolar type Status: Acute - Plan 22-year-old female with a history of schizoaffective disorder, complain of dizziness. Hospitalists service is requested. Dizziness, improved today. Yesterday she indicated symptoms started around 3 PM , today she states that they are present when she gets up in the morning. Not a reliable historian. -Possibly secondary to Clozaril being titrated. -She had MRI last year, no structural issues. -Vital signs are reviewed, she is noted tachycardic at times, heart rate 90s- 100s. Continue with metoprolol, at this time we will hold off on increasing dosage at this may cause more fatigue. -Orthostatics negative. -If symptoms persist, Clozaril may need to be adjusted. Schizoaffective disorder Continue with psychiatric treatment Discussed with RN, patient.
[2018-03-01] MEDS: Metoprolol Tartrate 50 MG Tablet PO SCH ×2 (08:53→21:08)
[2018-03-01] MEDS: LORazepam 1 MG Tablet PO PRN (11:53)
--- NOTE | 2018-03-01 13:14 | P.PNPSY ---
Subjective Remarks: Patient was seen and case discussed with nursing. Patient remains quite labile. She continues with her one-to-one sitter. She is elevated and skipping around the room. Earlier Per nursing she was crying. Per nursing, due to a mixup her nighttime medications were not given yesterday. Mental Status Examination Appearance: Appropriate Consciousness: Alert Orientation: Person, Place Motor Activity: Other (No motor abnormalities noted) Speech: Unremarkable Language: Adequate Fund of Knowledge: Inadequate Attention and Concentration: Easily distracted (More focused today) Memory: Unremarkable Mood: Appropriate Affect: Appropriate Thought Process & Associations: Other (Some ongoing tangentiality but in general fairly linear) Thought Content: Appropriate Hallucination Type: None Delusion Type: None Suicidal Ideation: No Suicidal Plan: No Suicidal Intention: No Homicidal Ideation: No Homicidal Plan: No Homicidal Intention: No Insight: Fair Judgment: Impulsive Assessment and Plan - Assessment (1) Schizoaffective disorder, bipolar type Code(s): F25.0 - Schizoaffective disorder, bipolar type Status: Acute - Plan Plan: Continue current treatment plan Justification for Continued Inpatient Stay: Patient would decompensate in a less restrictive setting Request Healthcare Surrogate/Guardian Advocate?: Yes
--- NOTE | 2018-03-01 17:09 | P.PN ---
Subjective Interval history: Follow up for lightheadedness --minimal lightheadedness, HR 119, BB not given yesterday unclear why. Pt. examined in front of RN, ambulating in hallway, no dizziness, no palpitations, feels ok. No acute changes overnight. Pt. moved from [facility] Physical Exam Vital signs: Vital Signs 02/28/18 18:00 03/01/18 05:53 03/01/18 07:48 Temperature 97.5 F L 97.9 F Pulse Rate 111 H 90 119 H Respiratory Rate 20 16 18 Blood Pressure 125/61 107/73 127/82 Pulse Oximetry 99 100 97 Intake & Output 02/28/18 03/01/18 03/01/18 18:59 06:59 18:59 Intake Total 2039 340 / 340 Balance 2039 340 / 340 Intake: Oral 2039 240 / 240 Oral Supplement 100 / 100 Other: # Voids 1 # Bowel Movements 0 Narrative: GENERAL: Well-nourished, well-developed patient in no apparent distress. SKIN: Warm and dry. HEAD: Atraumatic. Normocephalic. EYES: Pupils equal and round. No scleral icterus. No injection or drainage. ENT: No nasal bleeding or discharge. Mucous membranes pink and moist. NECK: Trachea midline. No JVD. CARDIOVASCULAR: Regular rate and rhythm. RESPIRATORY: No accessory muscle use. Clear to auscultation. Breath sounds equal bilaterally. GASTROINTESTINAL: Abdomen soft, non-tender, nondistended. Hepatic and splenic margins not palpable. MUSCULOSKELETAL: Extremities without clubbing, cyanosis, or edema. No obvious deformities. NEUROLOGICAL: Awake and alert. No obvious cranial nerve deficits. Motor grossly within normal limits. Five out of 5 muscle strength in the arms and legs. Normal speech. PSYCHIATRIC: Appropriate mood and affect; insight and judgment normal. Results - Labs CBC & Chem 7: 02/25/18 11:07 02/06/18 08:18 Assessment and Plan - Assessment (1) Dizziness Code(s): R42 - Dizziness and giddiness Status: Acute (2) Bipolar disorder, current episode manic without psychotic features Code(s): F31.10 - Bipolar disorder, current episode manic without psychotic features, unspecified Status: Acute (3) Schizoaffective disorder, bipolar type Code(s): F25.0 - Schizoaffective disorder, bipolar type Status: Acute - Plan 22-year-old female with a history of schizoaffective disorder, complain of dizziness. Hospitalists service is requested. Dizziness, improved today. Yesterday she indicated symptoms started around 3 PM , today she states that they are present when she gets up in the morning. Not a reliable historian. -Possibly secondary to Clozaril being titrated. -She had MRI last year, no structural issues. -Vital signs are reviewed, she is noted tachycardic at times, heart rate 90s- 100s. Continue with metoprolol, at this time we will hold off on increasing dosage at this may cause more fatigue. Unclear why dose was missed last night. HR appears to be better, initially was up to 130s. -Orthostatics negative. -Clozaril being adjusted per psyche Schizoaffective disorder Continue with psychiatric treatment Discussed with RN, patient. will sign off for now, reconsult if needed.
[2018-03-02] MEDS: Metoprolol Tartrate 50 MG Tablet PO SCH ×2 (09:15→20:40)
--- NOTE | 2018-03-02 16:00 | P.PNPSY ---
Subjective Remarks: Patient was seen and case discussed with nursing. Given that she now received her nighttime medication (see note from yesterday), patient is more lucid, logical and goal oriented. She is gaining insight and is upset that she has a mental illness that she is here in the hospital. Affect is largely labile secondary to that throughout the day. She denies suicidal or homicidal ideation intent or plan. Compliant with medications and has not had any outbursts Mental Status Examination Appearance: Appropriate Consciousness: Alert Orientation: Person, Place, Date/Time Motor Activity: Other (No motor abnormalities noted) Speech: Unremarkable Language: Adequate Fund of Knowledge: Inadequate Attention and Concentration: Easily distracted (More focused today) Memory: Unremarkable Mood: Appropriate Affect: Appropriate Thought Process & Associations: Other (Some ongoing tangentiality but in general fairly linear) Thought Content: Appropriate Hallucination Type: None Delusion Type: None Suicidal Ideation: No Suicidal Plan: No Suicidal Intention: No Homicidal Ideation: No Homicidal Plan: No Homicidal Intention: No Insight: Fair Judgment: Impulsive Assessment and Plan - Assessment (1) Schizoaffective disorder, bipolar type Code(s): F25.0 - Schizoaffective disorder, bipolar type Status: Acute - Plan Plan: Continue current treatment plan Justification for Continued Inpatient Stay: Patient would decompensate in a less restrictive setting Request Healthcare Surrogate/Guardian Advocate?: Yes
[2018-03-03] MEDS: Metoprolol Tartrate 50 MG Tablet PO SCH ×2 (08:54→20:36)
--- NOTE | 2018-03-03 15:17 | P.PNPSY ---
Subjective Remarks: Patient seen and examined with nurse. Chart reviewed. Case discussed with nursing staff who reports patient has overall adapted fairly well to the general psychiatric unit and is no longer on a one-to-one. She has had some episodes of affective lability per nursing report. On my examination today, the patient is a little bit tearful. She says that she is worried about her family's safety. She has just finished a psychotherapeutic group regarding avoiding catastrophizing, and I note she has completed a worksheet indicating that she does struggle with fears regarding family safety. We process these fears a little bit. She does continue to display mild affect of lability. Denies any suicidal or homicidal ideation. Denies any side effects from medications. No physical complaints. Hopeful for discharge soon, although apparently family has not been out to evaluate the patient to say whether they would be able to manage her at home. Counselor to reach out to brother to try to ensure that visit is made in short order. Vital Signs Temp Pulse Resp BP Pulse Ox 03/03/18 08:57 119 H 116/74 03/03/18 06:24 98.1 F 87 17 107/61 100 03/02/18 18:00 97.9 F 104 H 20 126/89 98 Intake and Output 03/03/18 03/03/18 03/03/18 06:59 14:59 22:59 Intake Total 340 / 340 Balance 340 / 340 Intake: Oral 240 / 240 Oral Supplement 100 / 100 Other: # Voids 2 # Bowel Movements 0 Labs reviewed. No new labs. Review of Systems All other systems reviewed negative except as stated in HPI Mental Status Examination Appearance: Appropriate Consciousness: Alert Orientation: Person, Place, Date/Time Motor Activity: Other (No abnormal motor movements noted) Speech: Unremarkable Language: Adequate Fund of Knowledge: Inadequate Attention and Concentration: Easily distracted (More focused today) Memory: Unremarkable Mood: Appropriate Affect: Labile (Mild) Thought Process & Associations: Circumstantial (Fairly linear overall) Thought Content: Appropriate Hallucination Type: None Delusion Type: None Suicidal Ideation: No Suicidal Plan: No Suicidal Intention: No Homicidal Ideation: No Homicidal Plan: No Homicidal Intention: No Insight: Fair Judgment: Impulsive Assessment and Plan - Assessment (1) Schizoaffective disorder, bipolar type Code(s): F25.0 - Schizoaffective disorder, bipolar type Status: Acute - Plan Plan: Titrate clozapine to 150 mg in the morning and 275 mg at bedtime to target residual symptoms. Patient is improving with clozapine. Continue weekly CBCs. Continue to monitor on the general psychiatric unit. Continue other care as ordered. Justification for Continued Inpatient Stay: Medication changes. Risk for decompensation in less restrictive environment. Discharge Planning: Pending psychiatric stabilization. Possible discharge later in the week. Request Healthcare Surrogate/Guardian Advocate?: Yes
[2018-03-04 07:55] LABS: Baso # (Auto) 0.1 th/mm3 (0.0-0.2); Baso % (Auto) 0.6 % (0.0-2.0); Eos # (Auto) 0.3 th/mm3 (0.0-0.4); Eos % (Auto) 2.6 % (0.0-4.0); Hematocrit 39.1 % (35.0-46.0); Hemoglobin 13.3 gm/dL (11.6-15.3); Lymph # (Auto) 1.8 th/mm3 (1.0-4.8); Lymph % (Auto) 16.5 % (9.0-44.0); Mean Corpuscular HGB Conc 33.9 % (32.0-36.0); Mean Corpuscular Hemoglobin 31.3 pg (27.0-34.0); Mean Corpuscular Volume 92.3 fL (80.0-100.0); Mean Platelet Volume 8.1 fL (7.0-11.0); Mono # (Auto) 0.6 th/mm3 (0.0-0.9); Mono % (Auto) 5.8 % (0.0-8.0); Neut # (Auto) 7.9 th/mm3 (1.8-7.7); Neut % (Auto) 74.5 % (16.0-70.0); Platelet Count 319 th/mm3 (150-450); Red Blood Count 4.24 mil/mm3 (4.00-5.30); Red Cell Distribution Width 12.8 % (11.6-17.2); White Blood Count 10.7 th/mm3 (4.0-11.0)
[2018-03-04] MEDS: Metoprolol Tartrate 50 MG Tablet PO SCH ×2 (08:32→20:14)
--- NOTE | 2018-03-04 09:24 | P.TTN ---
- Patient Problems Problems: 1. Discharge planning 2. Medication compliance 3. Knowledge deficit 4. Lack of coping skills - Progress Toward Goals Provider Present: Dr. Ortega Khan Provider Input: appears improving but if discharged home family has to be involved in follow up care and being able to assist her once leaving home - for counselor to call family and see if they are willing to visit Nurse Input: compliant Psychiatric Counselors Present: Vicky Soriano LCSW Psychiatric Therapist Input: Latrice agrees to follow up with family to establish if they feel they can assit with patient in their home and able to handle her care being discharged home and follow up outpatient care with [facility] Spec/RT/OT/JASMINE Present: MITALI Campos (attends groups and appears doing better interacting with others ) - Documentation Teaching Recipient: Patient
--- NOTE | 2018-03-04 15:32 | P.PNPSY ---
Subjective Remarks: Patient seen and examined with nurse. Chart reviewed. Case discussed with nursing staff reports patient continues to improve with clozapine therapy. Case discussed in treatment team where a similar sentiment is echoed by the therapists, although it is noted that the patient still has occasional periods of tangentiality and bizarre behavior. Counselor relates that patient's parents feel that she is improved and would like to see her return home soon, but counselor also indicates that parents have not themselves been to see the patient, only brother has. Counselor has as yet been unable to reach brother to confirm that he feels that patient is stable for safe discharge home. On my examination today, the patient once again presents as more organized. Some mild emotional lability noted still. She denies any SI or HI. Denies any AVH. No new side effects from medications. No physical complaints. Hopeful for discharge soon. Vital Signs Temp Pulse Resp BP Pulse Ox 03/04/18 05:46 98.1 F 87 17 125/66 99 03/03/18 17:01 97.9 F 90 18 121/76 99 Intake and Output 03/04/18 03/04/18 03/04/18 06:59 14:59 22:59 Intake Total 600 / 600 Balance 600 / 600 Intake: Oral 600 / 600 Laboratory Results - last 24 hr 03/04/18 07:11 WBC 10.7 RBC 4.24 Hgb 13.3 Hct 39.1 MCV 92.3 MCH 31.3 MCHC 33.9 RDW 12.8 Plt Count 319 MPV 8.1 Neut % (Auto) 74.5 H Lymph % (Auto) 16.5 [place] % (Auto) 5.8 Eos % (Auto) 2.6 Baso % (Auto) 0.6 Neut # (Auto) 7.9 H Lymph # (Auto) 1.8 [place] # (Auto) 0.6 Eos # (Auto) 0.3 Baso # (Auto) 0.1 WBC Differential . Differential Comment Auto diff final Labs reviewed. ANC remains adequate for clozapine therapy. Review of Systems All other systems reviewed negative except as stated in HPI Mental Status Examination Appearance: Appropriate Consciousness: Alert Orientation: Person, Place, Date/Time Motor Activity: Other (No motoric abnormalities noted) Speech: Unremarkable Language: Adequate Fund of Knowledge: Inadequate Attention and Concentration: Easily distracted (More focused today) Memory: Unremarkable Mood: Appropriate Affect: Labile (Very mild) Thought Process & Associations: Circumstantial (Fairly linear overall) Thought Content: Appropriate Hallucination Type: None Delusion Type: None Suicidal Ideation: No Suicidal Plan: No Suicidal Intention: No Homicidal Ideation: No Homicidal Plan: No Homicidal Intention: No Insight: Fair Judgment: Impulsive Assessment and Plan - Assessment (1) Schizoaffective disorder, bipolar type Code(s): F25.0 - Schizoaffective disorder, bipolar type Status: Acute - Plan Plan: Titrate clozapine to 100 mg in the morning and 300 mg at bedtime to target residual symptoms. Continue weekly CBCs. Counselor to try to reach out to brother to see if he could make a visit this evening. Continue to monitor on the inpatient unit in the meantime. Continue other medications and care as ordered. Justification for Continued Inpatient Stay: Medication changes. Discharge Planning: Possible discharge home tomorrow, Saturday. Request Healthcare Surrogate/Guardian Advocate?: Yes
[2018-03-05] MEDS: Metoprolol Tartrate 50 MG Tablet PO SCH ×2 (08:34→21:08)
--- NOTE | 2018-03-05 11:17 | P.DSPSY ---
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 Khan, I have discussed the case with pain, with a important family psychiatric history of a brother with severe bipolar disorder and grandfather with schizophrenia, no significant medical history, who came to the emergency room brought today under [place] act, patient was found wandering the streets talking to people, very disorganized and disinhibited. Patient states her brother Calvin called 911 because she was a wild child. She states that the pillows are talking to her. She became quite disorganized and agitated in the ER. She was medicated with Geodon 10 mg IM and Ativan 2 mg IM in order to calm her down and for this reason she was unable to cooperate with a psychiatric evaluation at this moment. Past psychiatric history: She has a psychiatric history of bipolar disorder, schizophrenia, catatonia, 2 previous psychiatric hospitalizations, no previous suicide attempts. She was just discharged yesterday for the psychiatric unit, she was on Zyprexa 10 mg 3 times daily, Xanax 0.5 mg 3 times daily. Past medical history: She has no past medical Family psychiatric history: Her mother has schizophrenia, she has a brother with severe bipolar disorder Substance history: Patient has history of using marijuana Social history: Was born and raised in [place], she lives in [place] with her brother and her parents, she is unemployed, college student, single her highest level of education is some college credits. Tobacco Use In Past 30 Days: No How Often Do You Have a Drink Containing Alcohol: Never Mental Status Examination Appearance: Appropriate Consciousness: Alert Orientation: Person, Place, Date/Time Motor Activity: Other (No motoric abnormalities noted) Speech: Unremarkable Language: Adequate Fund of Knowledge: Inadequate Attention and Concentration: Easily distracted (More focused today) Memory: Unremarkable Mood: Appropriate Affect: Labile (Very mild) Thought Process & Associations: Circumstantial (Fairly linear overall) Thought Content: Appropriate Hallucination Type: None Delusion Type: None Suicidal Ideation: No Suicidal Plan: No Suicidal Intention: No Homicidal Ideation: No Homicidal Plan: No Homicidal Intention: No Insight: Fair Judgment: Impulsive Discharge/Advance Care Plan - Results Vital Signs: Last Vital Signs Temp 97.6 F 03/04/18 18:14 Pulse 100 H 03/05/18 05:35 Resp 17 03/05/18 05:35 BP 108/60 03/05/18 05:35 Pulse Ox 99 03/04/18 18:14 Lab Results: Laboratory Results Hemoglobin A1c 4.8 % (4.3-6.0) 02/05/18 11:05 Triglycerides 49 mg/dL (42-150) 02/05/18 11:05 Cholesterol 112 mg/dL (120-200) L 02/05/18 11:05 LDL Cholesterol, Calc 55 mg/dL (0-99) 02/05/18 11:05 HDL Cholesterol 47.5 mg/dL (40.0-60.0) 02/05/18 11:05 - Discharge Care Plan Goals to Promote Your Health: * To prevent worsening of your condition and complications * To maintain your health at the optimal level Directions to Meet Your Goals: Take your medications as prescribed Follow your dietary instruction Follow activity as directed Keep your appointments as scheduled Take your immunizations and boosters as scheduled If your symptoms worsen call your PCP, if no PCP go to Urgent Care Center or Emergency Room For 28/01 questions related to your inpatient stay or results of tests pending at discharge, please contact Dr. August Khan MD at [phone] Smoking is Dangerous to Your Health. Avoid second hand smoking
--- NOTE | 2018-03-05 11:57 | P.PNPSY ---
Subjective Remarks: Patient seen and examined with nurse. Chart reviewed. Case discussed with nursing staff. Case discussed with counselor. Hope had been to discharge the patient home today, but counselor has spoken with patient's father who has reportedly expressed concerns about family's readiness to assume care of patient at this time. Father requests that we hold off on discharge until the end of the week when patient's brother is available to assist in monitoring the patient. Counselor has emphasized that the patient will require continuous monitoring for several months until her psychiatric condition completely stabilizes. Additionally, patient's brother did not visit with the patient last night to provide his insights but is reportedly coming this evening, although counselor has not yet been able to make contact with brother. On my examination today, the patient is calm and cooperative. She is hopeful for discharge soon. She does provide some non sequitur answers at times, but her narrative overall is quite comprehensible. Denies SI or HI. Denies AVH. No side effects from medications. No physical complaints. Vital Signs Temp Pulse Resp BP Pulse Ox 03/05/18 05:35 100 H 17 108/60 03/04/18 18:14 97.6 F 110 H 18 135/65 99 Intake and Output 03/04/18 03/05/18 03/05/18 22:59 06:59 14:59 Intake Total 840 / 840 Balance 840 / 840 Intake: Oral 840 / 840 Other: # Voids 2 Labs reviewed. No new labs. Review of Systems All other systems reviewed negative except as stated in HPI Mental Status Examination Appearance: Appropriate Consciousness: Alert Orientation: Person, Place, Date/Time Motor Activity: Other (No abnormal motor movements noted) Speech: Unremarkable Language: Adequate Fund of Knowledge: Inadequate Attention and Concentration: Easily distracted (Continues to improve) Memory: Unremarkable Mood: Appropriate Affect: Appropriate Thought Process & Associations: Circumstantial (Fairly linear overall) Thought Content: Appropriate Hallucination Type: None Delusion Type: None Suicidal Ideation: No Suicidal Plan: No Suicidal Intention: No Homicidal Ideation: No Homicidal Plan: No Homicidal Intention: No Insight: Fair Judgment: Impulsive Assessment and Plan - Assessment (1) Schizoaffective disorder, bipolar type Code(s): F25.0 - Schizoaffective disorder, bipolar type Status: Acute - Plan Plan: Continue clozapine 100 mg in the morning and 300 mg at bedtime as ordered. Continue weekly CBCs. Continue to monitor on the inpatient unit. Continue other medications and care as ordered. Justification for Continued Inpatient Stay: Risk for decompensation in less restrictive environment. Discharge Planning: Hopeful for discharge by the end of the week. As noted above, although she is improved the patient will require significant support from family after discharge, and until they are able to provide this, discharge home would likely result in decompensation and rapid rehospitalization. She has no payer source for, e.g. assisted living placement. Request Healthcare Surrogate/Guardian Advocate?: Yes
[2018-03-06] MEDS: Metoprolol Tartrate 50 MG Tablet PO SCH ×2 (08:28→21:11)
--- NOTE | 2018-03-06 15:45 | P.PNPSY ---
Subjective Remarks: Reviewed electronic medical record and discussed case with staff. Follow-up was conducted in day room. Patient is in a good mood and reports that she is feeling much better. She states that she is sleeping well and has a good appetite. Patient has been compliant with medications and care. Mental Status Examination Appearance: Appropriate Consciousness: Alert Orientation: Person, Place, Date/Time Motor Activity: Other (No abnormal motor movements noted) Speech: Unremarkable Language: Adequate Fund of Knowledge: Inadequate Attention and Concentration: Easily distracted (Continues to improve) Memory: Unremarkable Mood: Appropriate Affect: Appropriate Thought Process & Associations: Circumstantial (Fairly linear overall) Thought Content: Appropriate Hallucination Type: None Delusion Type: None Suicidal Ideation: No Suicidal Plan: No Suicidal Intention: No Homicidal Ideation: No Homicidal Plan: No Homicidal Intention: No Insight: Fair Judgment: Impulsive Assessment and Plan - Assessment (1) Schizoaffective disorder, bipolar type Code(s): F25.0 - Schizoaffective disorder, bipolar type Status: Acute - Plan Plan: Continue with current treatment plan. Justification for Continued Inpatient Stay: Moving patient to a lower level of care would likely result in decompensation. Hopeful for discharge, possibly tomorrow. Request Healthcare Surrogate/Guardian Advocate?: Yes
[2018-03-07] MEDS: Metoprolol Tartrate 50 MG Tablet PO SCH (09:27)
--- NOTE | 2018-03-07 14:27 | P.DSPSY ---
Psychiatry Discharge Summary Inpatient Psychiatric care?: Yes Advance Directives: No Mental Health Advance Directive: No Health Care Proxy: No - Admission Admission Date: February 04, 2018 12:32 - Admission Diagnosis (1) Schizoaffective disorder, bipolar type Code(s): F25.0 - Schizoaffective disorder, bipolar type Brief History: Ms. Singer is a 22-year-old female with a history of bipolar disorder versus schizoaffective disorder who returned to the ED under a [place] [employer] Act by [facility] shortly after discharge from the inpatient unit into family's care. Dr. Marie saw patient for H&P, and I did discuss the case with Dr. Marie. EMR reviewed. Patient seen and examined with nurse. Chart reviewed. Case discussed with nursing staff. Per nursing staff, patient was hyperkinetic and manicky this morning. She has received Ativan and subsequently has calmed. On my evaluation , patient is dozing in her room. She awakens fairly readily. Thought process is tangential, at times disorganized. She endorses vague SI but has no HI. No reported urge to hurt self on inpatient unit. Denies AVH but appears internally stimulated. No angelique delusional material. No depressive symptoms. Suspect some racing thoughts and loosening of associations. No evident side effects from medications besides perhaps mild sedation. No physical complaints. I am unable to obtain meaningful past psychiatric, family, chemical dependency or social history from the patient on account of her degree of psychiatric impairment at present. Spoke with patient's brother Ravi Singer, , who served as HCS last time. He is willing to act as HCS again. Given the refractory nature of patient's mental illness, we discuss trial of clozapine. I review the R/B/A for this medication including the usual metabolic and movement-related side effects. We also discuss the clozapine-specific side effects including but not limited to agranulocytosis, lowering of the seizure threshold and sialorrhea. We discuss the need for CBC monitoring with this agent. Ravi also provides consent for other psychotropics. Tobacco Use In Past 30 Days: No How Often Do You Have a Drink Containing Alcohol: Never Hospital Course: Ms. Singer is a 22-year-old female with a history of bipolar disorder versus schizoaffective disorder who returned to the ED under a [place] [employer]re Act by [facility] shortly after discharge from the inpatient unit into family's care. Dr. Marie saw patient for H&P, and I did discuss the case with Dr. Marie. EMR reviewed. Patient seen and examined with nurse. Chart reviewed. Case discussed with nursing staff. Per nursing staff, patient was hyperkinetic and manicky this morning. She has received Ativan and subsequently has calmed. On my evaluation , patient is dozing in her room. She awakens fairly readily. Thought process is tangential, at times disorganized. She endorses vague SI but has no HI. No reported urge to hurt self on inpatient unit. Denies AVH but appears internally stimulated. No angelique delusional material. No depressive symptoms. Suspect some racing thoughts and loosening of associations. No evident side effects from medications besides perhaps mild sedation. No physical complaints. I am unable to obtain meaningful past psychiatric, family, chemical dependency or social history from the patient on account of her degree of psychiatric impairment at present. Spoke with patient's brother Ravi Singer, , who served as HCS last time. He is willing to act as HCS again. Given the refractory nature of patient's mental illness, we discuss trial of clozapine. I review the R/B/A for this medication including the usual metabolic and movement-related side effects. We also discuss the clozapine-specific side effects including but not limited to agranulocytosis, lowering of the seizure threshold and sialorrhea. We discuss the need for CBC monitoring with this agent. Ravi also provides consent for other psychotropics. Patient was admitted to a locked psychiatric unit. All safety precautions were kept in place throughout her stay. She was assessed by a psychiatric provider on a daily basis and followed as well with case management and counselors. She has shown improvement over the course of her stay. She was initially started on Zyprexa and clozapine was added to her regimen. Through a cross titration she was weaned off of the Zyprexa and seems to be tolerating the clozapine well. Her condition is proved with no behavioral disturbances reported by staff. She is able to communicate in complete sentences. Her hyperkinesis has improved. Her mood is good and her affect is euthymic. She states that she is sleeping well and her appetite has been good. She denies feeling suicidal or homicidal as well as auditory or visual hallucinations. There is no indication of internal stimulation or thought blocking at this time. She shows no signs of psychosis. Her mood is much improved but is still slightly hypomanic which may well be her new baseline. She reports that she looks forward to going home with her family. Vicky, the counselor spoke with her family who report that they are ready to go home. It was once again stressed that she will require around the clock care as well as the importance of adherence to the treatment plan and follow up. The mother claims understanding, willingness, and the ability to comply. At this time it appears that she has reached the maximum therapeutic benefit of this inpatient admission. She will be discharged to her family's care. Her brother is picking her up at 6 PM. - Discharge Discharge Date: 03/07/18 - Discharge Diagnosis (1) Schizoaffective disorder, bipolar type Code(s): F25.0 - Schizoaffective disorder, bipolar type Status: Acute Discharge Disposition: Home - Discharge Instructions Discharge Diet: Regular Diet Activities You Can Perform: Regular- No Restrictions - Discharge Time > 30 minutes Mental Status Examination Appearance: Appropriate Consciousness: Alert Orientation: Person, Place, Date/Time Motor Activity: Other (No abnormal motor movements noted) Speech: Unremarkable Language: Adequate Fund of Knowledge: Inadequate Attention and Concentration: Easily distracted (Continues to improve) Memory: Unremarkable Mood: Appropriate Affect: Appropriate Thought Process & Associations: Circumstantial (Fairly linear overall) Thought Content: Appropriate Hallucination Type: None Delusion Type: None Suicidal Ideation: No Suicidal Plan: No Suicidal Intention: No Homicidal Ideation: No Homicidal Plan: No Homicidal Intention: No Insight: Fair Judgment: Impulsive Discharge/Advance Care Plan - Results Vital Signs: Last Vital Signs Temp 98.3 F 03/07/18 05:48 Pulse 93 H 03/06/18 05:20 Resp 16 03/07/18 05:48 BP 113/55 L 03/07/18 05:48 Pulse Ox 100 03/07/18 05:48 Lab Results: Laboratory Results Hemoglobin A1c 4.8 % (4.3-6.0) 02/05/18 11:05 Triglycerides 49 mg/dL (42-150) 02/05/18 11:05 Cholesterol 112 mg/dL (120-200) L 02/05/18 11:05 LDL Cholesterol, Calc 55 mg/dL (0-99) 02/05/18 11:05 HDL Cholesterol 47.5 mg/dL (40.0-60.0) 02/05/18 11:05 Summary of Procedures: N/A Pending Results: None - Medications Number of antipsychotic medications at discharge: 1 - Discharge Care Plan Goals to Promote Your Health: * To prevent worsening of your condition and complications * To maintain your health at the optimal level Directions to Meet Your Goals: Take your medications as prescribed Follow your dietary instruction Follow activity as directed Keep your appointments as scheduled Take your immunizations and boosters as scheduled If your symptoms worsen call your PCP, if no PCP go to Urgent Care Center or Emergency Room For 28/01 questions related to your inpatient stay or results of tests pending at discharge, please contact SUMANTH Moore at Smoking is Dangerous to Your Health. Avoid second hand smoking
== END 2018-03-07 18:15 | disposition home or self-care (01) ==
LOC: NEPD 10:53 → NEDA 12:32 → H4EA 15:43 → H260 02-28 19:39
PROVIDERS: ADMIT Psychiatry & Neurology Psychiatry; ATTEND Psychiatry & Neurology Psychiatry